=== PATIENT | male | born 1950 | race African-American/Black ===

== ENCOUNTER 2016-10-13 00:13 | Inpatient (IN) | payer MEDICARE, MEDICAID ==
[~2016-10-13] VITALS: Ht 172.7 cm; Wt 65.8 kg
[2016-10-13] VITALS (8 sets, daily range): BP systolic 90–138; BP diastolic 61–78
[~2016-10-13 00:13] MED LIST: LEVAQUIN750 MG ORAL
[2016-10-13] MEDS ORDERED: GLIPIZIDE5 MG ORAL (00:20)
[2016-10-13] MEDS ORDERED: ALLOPURINOL100 M1 ORAL (00:20)
[2016-10-13] MEDS ORDERED: CARVEDILOL12.5 MG ORAL (00:20)
[2016-10-13] MEDS ORDERED: NITROSTAT0.4 M2 SL (00:20)
[2016-10-13] MEDS ORDERED: HYDROCHLOROTHIA25 MG ORAL (00:20)
[2016-10-13] MEDS ORDERED: ATORVASTATIN CA40 MG ORAL (00:20)
[2016-10-13] MEDS ORDERED: ADVAIR 250-501 EACH INH ×2 (00:20→05:16)
[2016-10-13] MEDS ORDERED: HYDRALAZINE HC100 MG ORAL (00:20)
[2016-10-13] MEDS ORDERED: HYDROCODON-ACE1 EA13 ORAL ×2 (00:20→05:16)
[2016-10-13] MEDS ORDERED: DIPHENHYDRAMINE25 M1 ORAL (00:20)
[2016-10-13] MEDS ORDERED: BRILINTA90 MG PO (00:20)
[2016-10-13] MEDS ORDERED: ASPIR 8181 MG ORAL (00:20)
[2016-10-13] MEDS ORDERED: Ipratropium 0.02% Inh Soln 2.5ml UD HHN ONE (00:30)
[2016-10-13] MEDS ORDERED: Albuterol ud Inhalation HHN ONE (00:30)
[2016-10-13] MEDS ORDERED: Solu-MEDROL 125mg Inj IVP ONE (00:30)
[2016-10-13 00:48] LABS: MEAN CORPUSCULAR HEMOGLOBIN 30.6 PG (27.0-31.0); MEAN CORPUSCULAR HGB CONC 32.8 G/DL (32.0-36.0); MEAN CORPUSCULAR VOLUME 93 FL (80-99); MEAN PLATELET VOLUME 6.2 FL (6.5-10.1); PLATELET COUNT 79 K/UL (150-450); RED BLOOD COUNT 3.35 M/UL (4.70-6.10); RED CELL DISTRIBUTION WIDTH 21.6 % (11.6-14.8); WHITE BLOOD COUNT 6.5 K/UL (4.8-10.8)
[2016-10-13 00:58] LABS: INR 1.1 (0.9-1.1); PROTHROMBIN TIME 11.7 SEC (9.30-11.50)
[2016-10-13 01:02] LABS: TROPONIN I < 0.30 ng/mL (<=0.30)
[2016-10-13 01:03] LABS: ALANINE AMINOTRANSFERASE 77 U/L (3-41); ALBUMIN/GLOBULIN RATIO 1.5 (1.0-2.7); ANION GAP 15 (5-15); ASPARTATE AMINO TRANSFERASE 110 U/L (5-40); CALCIUM 8.6 mg/dL (8.6-10.2); CARBON DIOXIDE 25 mEQ/L (20-30); CHLORIDE 101 mEQ/L (98-107); CREATININE 1.4 mg/dL (0.7-1.2); GLOMERULAR FILTRATION RATE > 60 mL/min (>60); HEMOLYSIS 2; POTASSIUM 3.8 mEQ/L (3.4-4.9); SODIUM 141 mEQ/L (135-145); TOTAL PROTEIN 6.3 g/dL (6.6-8.7)
[2016-10-13 01:13] LABS: CKMB < 1.5 ng/mL (< 6.7)
--- NOTE | 2016-10-13 01:57 | Emergency Room Report ---
History of Present Illness General Chief Complaint: Dyspnea/Respdistress Source: Patient, EMS Present Illness HPI This is a 66-year-old male with multiple medical problems. He has previous MA in CAD with CHF. Also history hypertension and diabetes. 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 He presents with chief shortness of breath. This is chronic but worse the last couple days. No fever or chills. Worse with exertion. Worse with inspiration. Coughing. Productive in nature. No chest pain. Came in by EMS. Allergies: Coded Allergies: BRITTANI INHIBITORS (Unverified Allergy, Unknown, 03/19/15) Uncoded Allergies: BRITTANI (Allergy, Unknown, 03/18/15) Patient History Past Medical History: see triage record, old chart reviewed, DM, HTN, MA, CAD, CHF, COPD Past Surgical History: other Pertinent Family History: none Social History: Denies: smoking - History of Immunizations: other Reviewed Nursing Documentation: PMH: Agreed, PSxH: Agreed Nursing Documentation-PMH Past Medical History: No History, Except For Hx Cardiac Problems: Yes - 4-stents Hx Hypertension: Yes Hx Diabetes: Yes Review of Systems Eye: Denies: blurred vision, eye pain ENT: Denies: ear pain, nose congestion, throat swelling Respiratory: Reports: cough, shortness of breath Cardiovascular: Denies: chest pain, palpitations Gastrointestinal: Denies: abdominal pain, diarrhea, nausea, vomiting Musculoskeletal: Denies: back pain, joint pain Skin: Denies: rash Neurological: Denies: headache, numbness Endocrine: Denies: increased thirst, increased urine Hematologic/Lymphatic: Denies: easy bruising All Other Systems: negative except mentioned in HPI Physical Exam Vital Signs Date Time Temp Pulse Resp B/P Pulse Ox O2 Delivery O2 Flow Rate FiO2 10/13/16 00:07 91 16 115/59 100 Simple Mask 15.0 10/13/16 00:28 100 vitals with hypoxia Sp02 EP Interpretation: abnormal General Appearance: mild distress, moderate distress, Chronically Ill Head: normocephalic, atraumatic Eyes: bilateral eye EOMI, bilateral eye PERRL ENT: hearing grossly normal, normal pharynx Neck: full range of motion, supple, no meningismus Respiratory: chest non-tender, decreased breath sounds, accessory muscle use, rales Cardiovascular #1: regular rate, rhythm, no murmur Gastrointestinal: normal bowel sounds, non tender, no mass, no organomegaly, no bruit, non-distended Musculoskeletal: back normal, normal range of motion, swelling Neurologic: alert, oriented x3 Psychiatric: mood/affect normal Skin: warm/dry Medical Decision Making Diagnostic Impression: Primary Impression: CHF exacerbation Qualified Codes: I50.9 - Heart failure, unspecified Additional Impressions: Cocaine abuse Respiratory distress ER Course Patient presents with rest or distress secondary to CHF. Probably worsened by his cocaine abuse. No evidence of ACS, PE, dissection to name a few. Patient didn't diurese is. He felt better now. We'll admit. Lab Results Impression labs with elevated BNP EKG Diagnostic Results Rate: normal Rhythm: NSR ST Segments: no acute changes Rhythm Strip Diag. Results EP Interpretation: yes Rate: 85 Rhythm: NSR, no PVC's, no ectopy Chest X-Ray Diagnostic Results EP Interpretation: Yes Findings: no consolidation, no effusion, no pneumothorax, other - cm with vasc congestion Number of Views: 1 Last Vital Signs Date Time Temp Pulse Resp B/P Pulse Ox O2 Delivery O2 Flow Rate FiO2 10/13/16 01:45 88 20 90/63 12 Nasal Cannula 2.0 28 Status: improved Referrals: NON PHYSICIAN (PCP) MARYCARMEN THORPE M.D. October 13, 2016 01:57
[2016-10-13] MEDS: Aspirin EC 81mg tab ORAL SCH (09:38)
[2016-10-13] MEDS: Allopurinol 100mg Tab ORAL SCH ×2 (09:38→17:16)
[2016-10-13] MEDS: Norco 10mg/325mg tab ORAL PRN ×3 (09:43→21:28)
[2016-10-13] MEDS: Advair 250/50 Inhaler - 14 dose INH SCH ×2 (09:49→19:46)
[2016-10-13] MEDS ORDERED: Carvedilol 12.5mg tab ORAL SCH (10:00)
--- NOTE | 2016-10-13 10:18 | Diagnostic Imaging Report ---
Indication: Chest Pain Comparison: 03/18/15 A single view chest radiograph was obtained. Findings: Cardiomediastinal appearance is within normal limits for age. Pulmonary vascularity is appropriate. The diaphragmatic contour is smooth and costophrenic angles are sharp. No pleural effusions are identified. The bones are unremarkable. Impression: No acute findings
[2016-10-13 11:17] LABS: ABG ALLEN TEST POSITIVE; ABG PCO2 35.8 mmHg (35.0-45.0)
[2016-10-13] MEDS: NovoLOG Insulin Flexpen SUBQ SCH ×3 (11:49→20:52)
--- NOTE | 2016-10-13 12:30 | History and Physical Report ---
DATE OF ADMISSION: 10/13/2016 CHIEF COMPLAINT: Shortness of breath and chest pain. HISTORY OF PRESENT ILLNESS: This is a 66-year-old male with multiple medical problems. The patient presented to the emergency department with a shortness of breath lasting for several hours prior to admission. PAST MEDICAL HISTORY: 1. Paroxysmal atrial fibrillation. 2. Type 2 diabetes mellitus. 3. Hypertensive cardiovascular disease. 4. Ischemic heart disease. 5. Status post coronary artery stenting x4. 6. Hyperlipidemia. 7. Right arm deep vein thrombosis. 8. History of polysubstance abuse. 9. History of superior vena caval syndrome. 10. History of a non-small cell lung cancer. 11. Chronic obstructive pulmonary disease. 12. Polysubstance abuse. MEDICATIONS: Home medications includes the [place], allopurinol, baby aspirin, atorvastatin, Coreg, glipizide, hydralazine, hydrochlorothiazide, nitroglycerin, Advair Diskus, Brilinta, and Coumadin. ALLERGIES: BRITTANI inhibitor. SOCIAL HISTORY: The patient lives at home. FAMILY HISTORY: Unremarkable. REVIEW OF SYSTEMS: HEENT: Hearing normal. Endocrine: Significant for type 2 diabetes mellitus. Cardiovascular: Denies chest pain. No palpitations. Respiratory: He admits to orthopnea, paroxysmal nocturnal dyspnea and dyspnea on effort. Neurological: No stroke, syncope or Parkinson disease. Hematologic: Significant for history of a tqs-tigcd-ejak lung cancer. PHYSICAL EXAMINATION: GENERAL: This is an elderly male, who is in no acute distress. VITAL SIGNS: Blood pressure is 115/78, pulse rate 100, apical, respirations 18, temperature 97.6 degrees, oral and O2 saturation 97% on two liters per nasal cannula. HEENT: Head is normocephalic and atraumatic. Pupils are equal, round, and reactive to light and accommodation consensually. NECK: Supple. Trachea midline. There was no lymphadenopathy or thyromegaly. LUNGS: Few bilateral wheezes. HEART: Regular rate and rhythm without rubs, murmurs, or gallops. ABDOMEN: Soft. Bowel sounds are active. EXTREMITIES: No clubbing, cyanosis, or edema. NEUROLOGICAL: He is alert and oriented x4. Cranial nerves II through XII are intact. LABORATORY AND ANCILLARY DATA: EKG shows normal sinus rhythm, evidence of old anterior septal infarct. She has a CBC, hemoglobin 10.3, and platelet count is 79,000, otherwise within normal limits. Serum chemistry, creatinine 1.4. Electrolytes within normal limits. Glucose 121. AST 110, ALT 77, and alkaline phosphatase 143. ProBNP 1320. Urine toxicology screen is significant for cocaine. IMAGING STUDIES: Chest x-ray, no acute findings. ASSESSMENT: 1. Shortness of breath etiology unclear. Rule out pulmonary embolism, rule out other etiologies. PLAN: 1. Rule out any acute myocardial ischemia protocol. 2. Continue home medications. 3. Cardiology consultation to be done by . The patient knows from his last admission, although he has different pivotals in different hospitals. Harsh Maher M.D. DR: Henrik JOB#: [id number] CC:
[2016-10-13] MEDS ORDERED: Enoxaparin Sodium 300mg/3ml vial SUBQ SCH (13:00)
[2016-10-13] MEDS: HydrALAZINE 50mg tab ORAL SCH ×2 (13:20→21:35)
[2016-10-13] MEDS: Enoxaparin Sodium 300mg/3ml vial SUBQ SCH ×2 (13:23→21:27)
[2016-10-13 16:50] LABS: TROPONIN I < 0.30 ng/mL (<=0.30)
--- NOTE | 2016-10-13 16:59 | Cardiac Electrophysiology PN ---
Subjective Subjective [id number] Objective Last 24 Hour Vital Signs Date Time Temp Pulse Resp B/P Pulse Ox O2 Delivery O2 Flow Rate FiO2 10/13/16 15:54 96.8 77 20 116/67 98 Nasal Cannula 2.0 10/13/16 13:20 131/81 10/13/16 11:55 97.2 91 20 104/61 100 Nasal Cannula 2.0 10/13/16 10:06 97 Nasal Cannula 2.0 10/13/16 10:06 Nasal Cannula 2.0 10/13/16 09:55 100 18 97 Nasal Cannula 2.0 10/13/16 09:50 100 18 97 Nasal Cannula 2.0 10/13/16 09:48 100 18 Nasal Cannula 2.0 10/13/16 09:39 100 115/78 10/13/16 09:37 97.6 100 20 115/78 100 Nasal Cannula 2.0 10/13/16 08:00 93 10/13/16 07:55 97.5 100 20 96/69 100 Nasal Cannula 2.0 10/13/16 05:00 97.7 99 20 138/66 100 Room Air 10/13/16 04:55 106 10/13/16 04:43 99 28 106/74 100 Nasal Cannula 2.0 10/13/16 03:18 99 28 106/74 100 Nasal Cannula 2.0 10/13/16 01:45 88 20 90/63 12 Nasal Cannula 2.0 10/13/16 00:52 90 20 100 Nasal Cannula 2.0 10/13/16 00:46 116 25 96 Nasal Cannula 4.0 36 10/13/16 00:33 94 22 Non-Rebreather 15.0 100 10/13/16 00:30 100 10/13/16 00:29 94 22 Non-Rebreather 100 10/13/16 00:28 94 22 100 Non-Rebreather 100 10/13/16 00:07 91 16 115/59 100 Simple Mask 15.0 Intake and Output 10/12/16 10/13/16 19:00 07:00 Output Total 1300 ml Balance -1300 ml Output Urine Total 1300 ml # Voids 7 Laboratory Tests Test 10/13/16 00:31 10/13/16 02:00 10/13/16 11:10 10/13/16 16:00 White Blood Count 6.5 K/UL (4.8-10.8) Red Blood Count 3.35 M/UL (4.70-6.10) L Hemoglobin 10.3 G/DL (14.2-18.0) L Hematocrit 31.2 % (42.0-52.0) L Mean Corpuscular Volume 93 FL (80-99) Mean Corpuscular Hemoglobin 30.6 PG (27.0-31.0) Mean Corpuscular Hemoglobin Concent 32.8 G/DL (32.0-36.0) Red Cell Distribution Width 21.6 % (11.6-14.8) H Platelet Count 79 K/UL (150-450) L Mean Platelet Volume 6.2 FL (6.5-10.1) L Neutrophils (%) (Auto) % (45.0-75.0) Lymphocytes (%) (Auto) % (20.0-45.0) Monocytes (%) (Auto) % (1.0-10.0) Eosinophils (%) (Auto) % (0.0-3.0) Basophils (%) (Auto) % (0.0-2.0) Prothrombin Time 11.7 SEC (9.30-11.50) H Prothromb Time International Ratio 1.1 (0.9-1.1) Activated Partial Thromboplast Time 27 SEC (23-33) D-Dimer 63356 ng/mL (<500) H Sodium Level 141 mEQ/L (135-145) Potassium Level 3.8 mEQ/L (3.4-4.9) Chloride Level 101 mEQ/L (98-107) Carbon Dioxide Level 25 mEQ/L (20-30) Anion Gap 15 (5-15) Blood Urea Nitrogen 15 mg/dL (7-23) Creatinine 1.4 mg/dL (0.7-1.2) H Estimat Glomerular Filtration Rate > 60 mL/min (>60) Glucose Level 121 mg/dL (74-106) H Calcium Level 8.6 mg/dL (8.6-10.2) Total Bilirubin 0.3 mg/dL (0.0-1.2) Aspartate Amino Transf (AST/SGOT) 110 U/L (5-40) H Alanine Aminotransferase (ALT/SGPT) 77 U/L (3-41) H Alkaline Phosphatase 143 U/L (40-129) H Total Creatine Kinase 158 U/L (38-174) Creatine Kinase MB < 1.5 ng/mL (< 6.7) Creatine Kinase MB Relative Index 0.9 Troponin I < 0.30 ng/mL (<=0.30) < 0.30 ng/mL (<=0.30) Pro-B-Type Natriuretic Peptide 1320 pg/mL (0-125) H Total Protein 6.3 g/dL (6.6-8.7) L Albumin 3.8 g/dL (3.5-5.2) Globulin 2.5 g/dL Albumin/Globulin Ratio 1.5 (1.0-2.7) Urine Opiates Screen Negative (NEGATIVE) Urine Barbiturates Screen Negative (NEGATIVE) Phencyclidine (PCP) Screen Negative (NEGATIVE) Urine Amphetamines Screen Negative (NEGATIVE) Urine Benzodiazepines Screen Negative (NEGATIVE) Urine Cocaine Screen Positive (NEGATIVE) H Urine Marijuana (THC) Screen Negative (NEGATIVE) Arterial Blood pH 7.471 (7.350-7.450) Arterial Blood Partial Pressure CO2 35.8 mmHg (35.0-45.0) Arterial Blood Partial Pressure O2 81.9 mmHg (75.0-100.0) Arterial Blood HCO3 25.5 mmol/L (22.0-26.0) Arterial Blood Oxygen Saturation 95.9 % (92.0-98.0) Arterial Blood Base Excess 2.0 Bry Test Positive DARNELL RICK October 13, 2016 16:59
[2016-10-13] MEDS ORDERED: Warfarin Sodium 5mg ORAL ONE (17:00)
[2016-10-13] MEDS: GlipiZIDE 5mg tab ORAL SCH (17:16)
--- NOTE | 2016-10-13 17:17 | Consultation ---
Consult Note Consult Note Pt admitted with dyspnea, feels better now. Has a h/o extensive venous thrombosis and occlusions, including SVC syndrome. He is on coumadine but found to be subtherapeutic. Now on Lovenox as well. PMH/ROS/Hosp. course noted. Exam -- mild dyspnea, o/w NAD, AVSS; visible venous collaterals in shoulder and arms but mild edema; legs without C/C/E, right pedal pulse better than left but feet warm and without ulcer or gangrene; abd soft, NT, ND Labs/imaging reviewed. Assessment/Plan -- h/o SVC syndrome and UE DVT, on anticoagulation; no evidence of acute clinical venous complications -- cont. anticoagulation -- additional non-invasive studies ordered (carotid, LE) -- cardiology f/u -- will obtain additional records from other hospital admissions elsewhere for vascular procedures (e.g., LE intervention, per pt, etc.) ILIR DÍAZ October 13, 2016 17:17
--- NOTE | 2016-10-13 21:30 | Consultation ---
DATE OF CONSULTATION: 10/13/2016 CARDIOLOGY CONSULTATION: REFERRING PHYSICIAN: Harsh Maher M.D. REASON FOR CONSULTATION: Management of hypertension, shortness of breath, syncope, and chest pain. HISTORY OF PRESENT ILLNESS: The patient is a very pleasant 66-year-old gentleman under my Cardiology care with history of hypertension, diabetes, paroxysmal atrial fibrillation, and history of coronary artery disease with prior stent placement. The patient also has history of superior vena cava syndrome due to non-small cell lung cancer and right arm DVT. The patient's most recent echocardiogram showed ejection fraction 57% at [facility]. The patient was seen most recently by Dr. Narinder Rivera at [facility] on 10/03/2016 for radiation therapy. The patient was admitted for chest pain and shortness of breath. A Cardiology consultation was obtained for further evaluation and management. PAST MEDICAL HISTORY: 1. Hypertension. 2. Diabetes. 3. Paroxysmal atrial fibrillation. 4. History of coronary artery disease prior stent placement. 5. Small cell lung cancer. 6. Superior vena cava syndrome. 7. Status post drug-eluting stent 2015 . 8. Paroxysmal atrial fibrillation on Coumadin. SOCIAL HISTORY: He lives at home. Does not smoke or drink alcohol. FAMILY HISTORY: Noncontributory. REVIEW OF SYSTEM: Thoroughly performed and was negative other what was mentioned in history of present illness. PHYSICAL EXAMINATION: VITAL SIGNS: Blood pressure is 130/70, pulse 80, respirations 18, and he is afebrile. HEAD AND NECK: Shows mild JVD. LUNGS: Decreased breath sounds. CARDIOVASCULAR: Shows regular S1 and S2 with no gallop or murmur. ABDOMEN: Soft. EXTREMITIES: No pitting edema. SKIN: His anterior chest and skin color is change due to radiation therapy. LABORATORY DATA: White count 6.5, hematocrit 10.4, hematocrit 31.2, and platelet count of 79,000. Sodium 141, potassium 3.8, BUN 15, creatinine 1.4, and glucose 121. Troponin negative x2. ASSESSMENT AND PLAN: 1. Chest pain. This could be secondary to the patient's underlying small-cell cancer. He was already ruled out for myocardial infarction with serial cardiac enzymes. His EKG showed no acute ischemic changes. Urine toxicology however is positive for cocaine could be causing the patient's chest pain as well. 2. Coronary artery disease with prior stent placement. Drug-eluting stent as mentioned above. Continue with Lipitor, Plavix, and aspirin. I would discontinue Coreg in view of the patient's active cocaine use. We will proceed with diltiazem. 3. Paroxysmal atrial fibrillation sinus rhythm already on Coumadin and Lovenox until INR is therapeutic. 4. Hypertension on hydralazine 100 mg three times daily and switch Coreg to diltiazem in view of active cocaine use. 5. Hyperlipidemia on Lipitor. 6. Small cell lung cancer, status post radiation therapy and chemotherapy. 7. History of deep venous thrombosis. Continues on Coumadin. Thank you very much, Dr. Maher , for allowing me to participate in the care of this patient. Please do not hesitate to contact for any questions regarding my evaluation. Quinton Bradley M.D. DR: Katlyn JOB#: [id number] CC:
[2016-10-14] VITALS: BP 106/81
[2016-10-14 01:09] LABS: TROPONIN I < 0.30 ng/mL (<=0.30)
[2016-10-14 04:00] VITALS: BP 129/78
[2016-10-14] MEDS: NovoLOG Insulin Flexpen SUBQ SCH ×4 (06:16→21:00)
[2016-10-14] MEDS: GlipiZIDE 5mg tab ORAL SCH ×2 (06:17→16:30)
[2016-10-14] MEDS: HydrALAZINE 50mg tab ORAL SCH ×3 (06:17→21:14)
[2016-10-14] MEDS: Advair 250/50 Inhaler - 14 dose INH SCH ×2 (07:29→22:00)
[2016-10-14 08:00] VITALS: BP 154/96
[2016-10-14 09:06] LABS: INR 1.1 (0.9-1.1); PROTHROMBIN TIME 10.9 SEC (9.30-11.50)
[2016-10-14 09:22] LABS: TROPONIN I < 0.30 ng/mL (<=0.30)
--- NOTE | 2016-10-14 10:27 | General Progress Note ---
Assessment/Plan Assessment/Plan 1. Paroxysmal atrial fibrillation. 2. Type 2 diabetes mellitus. 3. Hypertensive cardiovascular disease. 4. Ischemic heart disease. 5. Status post coronary artery stenting x4. 6. Hyperlipidemia. 7. Right arm deep vein thrombosis. 8. History of polysubstance abuse. 9. History of superior vena caval syndrome. 10. History of a non-small cell lung cancer. 11. Chronic obstructive pulmonary disease. 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 Coumadinizing. Vasular w/u in progress. Patient is at extremely high CV risk and continues to consume street drugs. Subjective Allergies: Coded Allergies: BRITTANI INHIBITORS (Unverified Allergy, Unknown, 03/19/15) Uncoded Allergies: BRITTANI (Allergy, Unknown, 03/18/15) Subjective Less SOB but still not normal. No chest pain. Objective Last 24 Hour Vital Signs Date Time Temp Pulse Resp B/P Pulse Ox O2 Delivery O2 Flow Rate FiO2 10/14/16 08:00 97.7 108 18 154/96 Nasal Cannula 2.0 98 10/14/16 07:54 98 Nasal Cannula 2.0 10/14/16 07:54 Nasal Cannula 2.0 10/14/16 07:53 108 20 98 Nasal Cannula 2.0 10/14/16 07:52 108 18 98 Nasal Cannula 2.0 10/14/16 06:17 106/81 10/14/16 04:00 98.5 106 20 129/78 99 Room Air 10/14/16 04:00 97 10/14/16 00:00 92 10/14/16 00:00 97.2 101 20 106/81 98 Room Air 10/13/16 22:27 96.8 10/13/16 21:35 109/76 10/13/16 20:00 96 10/13/16 20:00 96.8 94 22 109/76 97 Room Air 10/13/16 19:47 115 20 98 Nasal Cannula 2.0 10/13/16 19:30 114 20 97 Nasal Cannula 2.0 10/13/16 19:30 97 Nasal Cannula 2.0 10/13/16 19:30 Nasal Cannula 2.0 10/13/16 16:00 89 10/13/16 15:54 96.8 77 20 116/67 98 Nasal Cannula 2.0 10/13/16 13:20 131/81 10/13/16 12:00 94 10/13/16 11:55 97.2 91 20 104/61 100 Nasal Cannula 2.0 Intake and Output 10/13/16 10/14/16 19:00 07:00 Intake Total 730 ml Output Total 650 ml 100 ml Balance 80 ml -100 ml Intake Oral 730 ml Output Urine Total 650 ml 100 ml # Voids 1 Laboratory Tests 10/13/16 11:10: Arterial Blood pH 7.471H, Arterial Blood Partial Pressure CO2 35.8, Arterial Blood Partial Pressure O2 81.9, Arterial Blood HCO3 25.5, Arterial Blood Oxygen Saturation 95.9, Arterial Blood Base Excess 2.0, Bry Test Positive 10/13/16 16:00: Troponin I < 0.30 10/14/16 00:10: Troponin I < 0.30 10/14/16 08:00: Troponin I < 0.30, Prothrombin Time 10.9, Prothromb Time International Ratio 1.1 , Pro-B-Type Natriuretic Peptide 832H Height (Feet): 5 Height (Inches): 8.00 Weight (Pounds): 145 Objective Cachechtic. CV RR Multiple collateral venous veins. Lungs B increased exp. Abd SNT. BS + E Rt. arm edema. CHERYL RABAGO October 14, 2016 10:27
[2016-10-14] MEDS: Aspirin EC 81mg tab ORAL SCH (11:09)
[2016-10-14] MEDS: Norco 10mg/325mg tab ORAL PRN ×2 (11:09→19:59)
[2016-10-14] MEDS: Allopurinol 100mg Tab ORAL SCH ×2 (11:10→17:55)
[2016-10-14] MEDS: Enoxaparin Sodium 300mg/3ml vial SUBQ SCH ×2 (11:11→21:08)
[2016-10-14] MEDS: Diltiazem CD 180mg cap ORAL SCH (11:12)
[2016-10-14 12:00] VITALS: BP 131/85
--- NOTE | 2016-10-14 12:33 | Diagnostic Imaging Report ---
APPROVED REPORT CPT Code: 98322 Vascular Symptoms Dizziness and Vertigo Doppler Spectral Velocity Analysis RightLeft BILATERAL: CCA/BULB - Imaging reveals irregular, minimal plaque in both the carotid carotid arteries. The Doppler spectral flow analysis is within normal limits throughout the internal and external carotid arteries. VERTEBRALS - Imaging reveals both vertebral arteries to be patent, without evidence of stenosis or steal.
--- NOTE | 2016-10-14 12:33 | Diagnostic Imaging Report ---
APPROVED REPORT CPT Code: 62109 Present Symptoms Lower Extremity Pain: Bilateral BILATERAL: Imaging reveals a patent deep venous system bilaterally. There is no evidence of thrombus within the femoral, popliteal or tibial segments. The greater saphenous veins are also within normal limits. Doppler indicates normal spontaneous flow within these segments.
--- NOTE | 2016-10-14 12:34 | Diagnostic Imaging Report ---
APPROVED REPORT CPT Code: 08549 Present Symptoms Upper Extremity Pain: Right DVT of Upper Extremity: Right 2D Evaluation RIGHT UPPER EXTREMITY: Venous imaging reveals acute thrombus in the jugular vein. The remaining segments are within normal limits. There is no evidence of thrombus within the subclavian, axillary and the brachial veins. The cephalic vein is also thrombosed at the upper arm level. Imaging also reveals patency of the basilic vein.
--- NOTE | 2016-10-14 13:30 | Diagnostic Imaging Report ---
APPROVED REPORT CPT Code: 91362 Symptoms Claudication : Right RIGHT LEG: Common femoral artery waveform analysis is abnormal at rest. Color flow duplex sonography reveals diffuse calcification throughout the superficial femoral and popliteal arteries. There is no evidence of stenosis or occlusion within these segments. The tibioperoneal trunk is patent. Doppler tibial artery waveform analysis is compartible with minimal ischemia at rest. LEFT LEG: Common femoral artery waveform analysis is compartible with mild ischemia at rest. Color flow duplex sonography reveals calcification throughout the superficial femoral and popliteal arteries. There is no evidence of stenosis or occlusion within these segments. The tibioperoneal trunk is patent. Doppler tibial artery waveform analysis is compartible with mild ischemia at rest.
--- NOTE | 2016-10-14 13:33 | General Progress Note ---
Progress Note Progress Note Feeling significantly better today. NAD; AVSS; vascular exam stable. Non-invasive vascular studies completed -- only significant finding is limited acute thrombus in RUE. -- cont. anticoagulation -- repeat venous duplex of RUE in 1-2 weeks or sooner if clinically indicated -- f/u as outpt ILIR DÍAZ October 14, 2016 13:33
--- NOTE | 2016-10-14 15:55 | Cardiac Electrophysiology PN ---
Assessment/Plan Assessment/Plan 1. Chest pain. This could be secondary to the patient's underlying small-cell cancer. Ruled out for myocardial infarction. EKG showed no acute ischemic changes. Urine toxicology however is positive for cocaine could be causing the patient's chest pain as well. 2. Coronary artery disease with prior stent placement and S/P Drug-eluting stent. Continue with Lipitor, Plavix, and aspirin. Off betablocker in view of the patient's active cocaine use. Continue diltiazem. 3. Paroxysmal atrial fibrillation sinus rhythm already on Coumadin and Lovenox until INR is therapeutic. 4. Hypertension on hydralazine 100 mg three times daily, diltiazem and HCTZ 5. Hyperlipidemia on Lipitor. 6. Small cell lung cancer, status post radiation therapy and chemotherapy. 7. History of deep venous thrombosis. Continues on Coumadin. RICK RN Subjective Subjective Remained in SR. No chest pain or SOB. Had ECG and echo today. Objective Last 24 Hour Vital Signs Date Time Temp Pulse Resp B/P Pulse Ox O2 Delivery O2 Flow Rate FiO2 10/14/16 14:07 131/85 10/14/16 12:00 88 19 131/85 Nasal Cannula 2.0 97 10/14/16 11:12 108 154/96 10/14/16 08:00 97.7 108 18 154/96 Nasal Cannula 2.0 98 10/14/16 08:00 99 10/14/16 07:54 98 Nasal Cannula 2.0 10/14/16 07:54 Nasal Cannula 2.0 10/14/16 07:53 108 20 98 Nasal Cannula 2.0 10/14/16 07:52 108 18 98 Nasal Cannula 2.0 10/14/16 06:17 106/81 10/14/16 04:00 98.5 106 20 129/78 99 Room Air 10/14/16 04:00 97 10/14/16 00:00 92 10/14/16 00:00 97.2 101 20 106/81 98 Room Air 10/13/16 22:27 96.8 10/13/16 21:35 109/76 10/13/16 20:00 96 10/13/16 20:00 96.8 94 22 109/76 97 Room Air 10/13/16 19:47 115 20 98 Nasal Cannula 2.0 10/13/16 19:30 114 20 97 Nasal Cannula 2.0 28 10/13/16 19:30 97 Nasal Cannula 2.0 28 10/13/16 19:30 Nasal Cannula 2.0 28 10/13/16 16:00 89 10/13/16 15:54 96.8 77 20 116/67 98 Nasal Cannula 2.0 Intake and Output 10/13/16 10/14/16 19:00 07:00 Intake Total 730 ml Output Total 650 ml 100 ml Balance 80 ml -100 ml Intake Oral 730 ml Output Urine Total 650 ml 100 ml # Voids 1 Laboratory Tests Test 10/13/16 16:00 10/14/16 00:10 10/14/16 08:00 Troponin I < 0.30 ng/mL (<=0.30) < 0.30 ng/mL (<=0.30) < 0.30 ng/mL (<=0.30) Prothrombin Time 10.9 SEC (9.30-11.50) Prothromb Time International Ratio 1.1 (0.9-1.1) Pro-B-Type Natriuretic Peptide 832 pg/mL (0-125) H Objective HEAD AND NECK: mild JVD. LUNGS: Decreased breath sounds. CARDIOVASCULAR: Shows regular S1 and S2 with no gallop or murmur. ABDOMEN: Soft. EXTREMITIES: No pitting edema. SKIN: His anterior chest and skin color is changed due to radiation therapy. DARNELL RICK October 14, 2016 15:54
[2016-10-14] MEDS ORDERED: Warfarin Sodium 5mg ORAL ONE (17:00)
[2016-10-14 17:07] LABS: TROPONIN I < 0.30 ng/mL (<=0.30)
[2016-10-14 20:00] VITALS: BP 114/71
[2016-10-15] VITALS (7 sets, daily range): BP systolic 97–130; BP diastolic 55–81
[2016-10-15] MEDS: Norco 10mg/325mg tab ORAL PRN ×3 (04:40→17:17)
[2016-10-15 05:21] LABS: APPEARANCE,URINE CLEAR; KETONES,URINE NEGATIVE (NEGATIVE); LEUKOCYTE ESTERASE ,URINE NEGATIVE (NEGATIVE); NITRITE,URINE NEGATIVE (NEGATIVE); PH,URINE 5 (4.5-8.0); PROTEIN,URINE NEGATIVE (NEGATIVE); UROBILINOGEN,URINE NORMAL MG/DL (0.0-1.0)
[2016-10-15 05:36] LABS: BACTERIA,URINE OCCASIONAL /HPF; RBC,URINE 0-2 /HPF (0 - 0); SQUAMOUS EPITHELIAL CELL,UR OCCASIONAL /LPF (NONE/OCC); WBC,URINE 0-2 /HPF (0 - 0)
[2016-10-15] MEDS: HydrALAZINE 50mg tab ORAL SCH ×3 (05:57→21:50)
[2016-10-15] MEDS: GlipiZIDE 5mg tab ORAL SCH ×2 (05:57→16:18)
[2016-10-15] MEDS: NovoLOG Insulin Flexpen SUBQ SCH ×4 (05:59→21:00)
[2016-10-15 06:29] LABS: INR 1.1 (0.9-1.1); PROTHROMBIN TIME 10.7 SEC (9.30-11.50)
[2016-10-15] MEDS: Advair 250/50 Inhaler - 14 dose INH SCH ×2 (08:00→19:36)
[2016-10-15] MEDS: Aspirin EC 81mg tab ORAL SCH (08:27)
[2016-10-15] MEDS: Diltiazem CD 180mg cap ORAL SCH (08:27)
[2016-10-15] MEDS: Allopurinol 100mg Tab ORAL SCH ×2 (08:27→17:16)
[2016-10-15] MEDS: Enoxaparin Sodium 300mg/3ml vial SUBQ SCH ×2 (08:29→21:49)
--- NOTE | 2016-10-15 11:01 | General Progress Note ---
Assessment/Plan Assessment/Plan 1. Paroxysmal atrial fibrillation. 2. Type 2 diabetes mellitus. 3. Hypertensive cardiovascular disease. 4. Ischemic heart disease. 5. Status post coronary artery stenting x4. 6. Hyperlipidemia. 7. Right arm deep vein thrombosis. 8. History of polysubstance abuse. 9. History of superior vena caval syndrome. 10. History of a non-small cell lung cancer. 11. Chronic obstructive pulmonary disease. 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 Coumadinizing. Very slow to respond. To increase dose. Vasular w/u in progress. Patient is at extremely high CV risk and continues to consume street drugs. Subjective Allergies: Coded Allergies: BRITTANI INHIBITORS (Unverified Allergy, Unknown, 03/19/15) Uncoded Allergies: BRITTANI (Allergy, Unknown, 03/18/15) Subjective Less SOB but still not normal. No chest pain. Objective Last 24 Hour Vital Signs Date Time Temp Pulse Resp B/P Pulse Ox O2 Delivery O2 Flow Rate FiO2 10/15/16 08:27 97 130/81 10/15/16 08:02 98.1 97 20 130/81 98 Nasal Cannula 2.0 10/15/16 08:00 85 16 98 Nasal Cannula 2.0 10/15/16 08:00 91 18 98 Nasal Cannula 2.0 10/15/16 07:52 89 10/15/16 07:42 Nasal Cannula 2.0 10/15/16 07:41 98 Nasal Cannula 2.0 10/15/16 05:57 119/64 10/15/16 05:55 85 119/64 10/15/16 04:16 97.5 78 18 110/55 96 Nasal Cannula 2.0 10/15/16 03:49 99 10/15/16 00:00 97.2 89 20 128/74 100 Nasal Cannula 2.0 10/14/16 23:59 95 10/14/16 21:14 123/83 10/14/16 21:00 110 20 99 Nasal Cannula 2.0 10/14/16 21:00 105 20 97 Nasal Cannula 2.0 10/14/16 20:00 97.7 87 19 114/71 98 Nasal Cannula 2.0 97 10/14/16 19:54 102 10/14/16 19:30 98 Nasal Cannula 2.0 10/14/16 19:30 Nasal Cannula 2.0 28 10/14/16 16:00 90 10/14/16 14:07 131/85 10/14/16 12:00 95 10/14/16 12:00 88 19 131/85 Nasal Cannula 2.0 97 10/14/16 11:12 108 154/96 Intake and Output 10/14/16 10/15/16 19:00 07:00 Intake Total 240 ml Output Total 300 ml Balance -60 ml Intake Oral 240 ml Output Urine Total 300 ml Laboratory Tests 10/14/16 16:10: Troponin I < 0.30 10/15/16 04:43: Urine Color Pale yellow, Urine Appearance Clear, Urine pH 5, Urine Specific [place] 1.010, Urine Protein Negative, Urine Glucose (UA) Negative, Urine Ketones Negative, Urine Occult Blood Negative, Urine Nitrite Negative, Urine Bilirubin Negative, Urine Urobilinogen Normal, Urine Leukocyte Esterase Negative , Urine RBC 0-2H, Urine WBC 0-2, Urine Squamous Epithelial Cells Occasional, Urine Bacteria Occasional 10/15/16 05:40: Prothrombin Time 10.7, Prothromb Time International Ratio 1.1 Height (Feet): 5 Height (Inches): 8.00 Weight (Pounds): 145 Objective Cachechtic. CV RR Multiple collateral venous veins. Lungs B increased exp. Abd SNT. BS + E Rt. arm edema. CHERYL RABAGO October 15, 2016 11:01
--- NOTE | 2016-10-15 11:02 | Cardiology Report ---
APPROVED REPORT EKG Measurement Heart [id number] Normal sinus rhythm Anteroseptal infarct, age undetermined Abnormal ECG
--- NOTE | 2016-10-15 15:03 | Cardiology Report ---
APPROVED REPORT EXAM: Two-dimensional and M-mode echocardiogram with Doppler and color Doppler. INDICATION Congestive Heart Failure M-Mode DIMENSIONS IVSd0.8 (0.7-1.1cm)Left Atrium (MM)4.9 (1.6-4.0cm) LVDd5.5 (3.5-5.6cm)Aortic Root3.3 (2.0-3.7cm) PWd1.0 (0.7-1.1cm)Aortic Cusp Exc.2.0 (1.5-2.0cm) LVDs4.1 (2.5-4.0cm) PWs1.6 cm Normal left ventricular chamber size. Mild global LV hypokinesis. Left ventricular ejection fraction estimated to be 45%. No evidence of left ventricular hypertrophy. No evidence of pericardial fat or effusion. Right cardiac chamber sizes are within normal limits. Mild left atrial enlargement by 2D. Focal aortic valve sclerosis with adequate cusp excursion Mildly thickened mitral valve leaflets with normal excursion. Mild mitral annulus and aortic root calcification. Pulmonic valve not well visualized. Normal tricuspid valve structure. IVC is normal in size with physiologic collapse. A color flow and spectral Doppler study was performed and revealed: Trace aortic regurgitation. Moderate mitral regurgitation. Left ventricular diastolic dysfunction grade 1. No tricuspid regurgitation.
[2016-10-15] MEDS ORDERED: Warfarin Sodium 10mg ORAL ONE (17:00)
[2016-10-15] MEDS ORDERED: Warfarin Sodium 5mg ORAL ONE (17:00)
--- NOTE | 2016-10-15 17:12 | Cardiac Electrophysiology PN ---
Assessment/Plan Status Narrative Normal left ventricular chamber size. Mild global LV hypokinesis. Left ventricular ejection fraction estimated to be 45%. No evidence of left ventricular hypertrophy. No evidence of pericardial fat or effusion. Right cardiac chamber sizes are within normal limits. Mild left atrial enlargement by 2D. Focal aortic valve sclerosis with adequate cusp excursion Mildly thickened mitral valve leaflets with normal excursion. Mild mitral annulus and aortic root calcification. Pulmonic valve not well visualized. Normal tricuspid valve structure. IVC is normal in size with physiologic collapse. A color flow and spectral Doppler study was performed and revealed: Trace aortic regurgitation. Moderate mitral regurgitation. Left ventricular diastolic dysfunction grade 1. No tricuspid regurgitation. Assessment/Plan 1. Chest pain. This could be secondary to underlying small-cell cancer and post radiation. Ruled out for myocardial infarction. EKG showed no acute ischemic changes.Echo EF 45% but no pericardial effusion. Urine toxicology however is positive for cocaine that could be causing the [place] [id number]! Order Chest CT angio to rule out PE. 2. Coronary artery disease with prior stent placement and S/P Drug-eluting stent. Continue with Lipitor, Plavix, and aspirin. Off betablocker in view of the patient's active cocaine use. Continue diltiazem. 3. Paroxysmal atrial fibrillation sinus rhythm already on Coumadin and Lovenox until INR is therapeutic. 4. Hypertension on hydralazine 100 mg three times daily, diltiazem and HCTZ 5. Hyperlipidemia on Lipitor. 6. Cardiomyopathy with EF 45%. 7. Small cell lung cancer, status post radiation therapy and chemotherapy. 8. History of deep venous thrombosis. Continues on Coumadin. RICK RN Subjective Subjective Remained in SR. No chest pain or SOB. No arrhythmias on tele. Objective Last 24 Hour Vital Signs Date Time Temp Pulse Resp B/P Pulse Ox O2 Delivery O2 Flow Rate FiO2 10/15/16 16:00 89 10/15/16 15:18 97.5 83 20 97/58 98 Nasal Cannula 2.0 10/15/16 13:16 125/65 10/15/16 12:54 97.9 10/15/16 11:51 86 10/15/16 11:20 97.9 90 20 125/65 99 Nasal Cannula 2.0 10/15/16 08:27 97 130/81 10/15/16 08:02 98.1 97 20 130/81 98 Nasal Cannula 2.0 10/15/16 08:00 85 16 98 Nasal Cannula 2.0 28 10/15/16 08:00 91 18 98 Nasal Cannula 2.0 28 10/15/16 07:52 89 10/15/16 07:42 Nasal Cannula 2.0 28 10/15/16 07:41 98 Nasal Cannula 2.0 28 10/15/16 05:57 119/64 10/15/16 05:55 85 119/64 10/15/16 04:16 97.5 78 18 110/55 96 Nasal Cannula 2.0 10/15/16 03:49 99 10/15/16 00:00 97.2 89 20 128/74 100 Nasal Cannula 2.0 28 10/14/16 23:59 95 10/14/16 21:14 123/83 10/14/16 21:00 110 20 99 Nasal Cannula 2.0 28 10/14/16 21:00 105 20 97 Nasal Cannula 2.0 28 10/14/16 20:00 97.7 87 19 114/71 98 Nasal Cannula 2.0 97 10/14/16 19:54 102 10/14/16 19:30 98 Nasal Cannula 2.0 28 10/14/16 19:30 Nasal Cannula 2.0 28 Intake and Output 10/14/16 10/15/16 19:00 07:00 Intake Total 240 ml Output Total 300 ml Balance -60 ml Intake Oral 240 ml Output Urine Total 300 ml Laboratory Tests Test 10/15/16 04:43 10/15/16 05:40 Urine Color Pale yellow Urine Appearance Clear Urine pH 5 (4.5-8.0) Urine Specific [place] 1.010 (1.005-1.035) Urine Protein Negative (NEGATIVE) Urine Glucose (UA) Negative (NEGATIVE) Urine Ketones Negative (NEGATIVE) Urine Occult Blood Negative (NEGATIVE) Urine Nitrite Negative (NEGATIVE) Urine Bilirubin Negative (NEGATIVE) Urine Urobilinogen Normal MG/DL (0.0-1.0) Urine Leukocyte Esterase Negative (NEGATIVE) Urine RBC 0-2 /HPF (0 - 0) H Urine WBC 0-2 /HPF (0 - 0) Urine Squamous Epithelial Cells Occasional /LPF Urine Bacteria Occasional /HPF (NONE) Prothrombin Time 10.7 SEC (9.30-11.50) Prothromb Time International Ratio 1.1 (0.9-1.1) Objective HEAD AND NECK: mild JVD. LUNGS: Clear. CARDIOVASCULAR: Shows regular S1 and S2 with no gallop or murmur. ABDOMEN: Soft. EXTREMITIES: No pitting edema. SKIN: His anterior chest skin color is changed due to radiation therapy. DARNELL RICK October 15, 2016 17:12
[2016-10-16] VITALS: BP 142/75
[2016-10-16 04:00] VITALS: BP 118/70
[2016-10-16] MEDS: HydrALAZINE 50mg tab ORAL SCH ×3 (05:51→22:00)
[2016-10-16] MEDS: GlipiZIDE 5mg tab ORAL SCH ×2 (05:51→17:12)
[2016-10-16] MEDS: NovoLOG Insulin Flexpen SUBQ SCH ×4 (05:58→20:52)
[2016-10-16 08:00] VITALS: BP 132/79
[2016-10-16 08:03] LABS: MEAN CORPUSCULAR HEMOGLOBIN 30.9 PG (27.0-31.0); MEAN CORPUSCULAR HGB CONC 32.8 G/DL (32.0-36.0); MEAN CORPUSCULAR VOLUME 94 FL (80-99); MEAN PLATELET VOLUME 9.5 FL (6.5-10.1); PLATELET COUNT 81 K/UL (150-450); RED BLOOD COUNT 3.19 M/UL (4.70-6.10); RED CELL DISTRIBUTION WIDTH 22.1 % (11.6-14.8); WHITE BLOOD COUNT 5.4 K/UL (4.8-10.8)
[2016-10-16 08:33] LABS: INR 1.1 (0.9-1.1)
[2016-10-16 09:13] LABS: LYMPHOCYTES % (MANUAL) 16 % (20-45); NEUTROPHILS % (MANUAL) 80 % (45-75); TOTAL CELLS COUNTED 100
[2016-10-16] MEDS: Allopurinol 100mg Tab ORAL SCH ×2 (09:14→17:12)
[2016-10-16 09:15] LABS: ANISOCYTOSIS 2+; BAND NEUTROPHILS % (MANUAL) 0 % (0-8); BASOPHILS % (MANUAL) 0 % (0-2); EOSINOPHILS % (MANUAL) 0 % (0-3); HYPOCHROMASIA 1+; PLATELET ESTIMATE DECREASED; PLATELET MORPHOLOGY NORMAL
[2016-10-16] MEDS: Aspirin EC 81mg tab ORAL SCH (09:18)
[2016-10-16] MEDS: Diltiazem CD 180mg cap ORAL SCH (09:19)
[2016-10-16] MEDS: Norco 10mg/325mg tab ORAL PRN ×2 (09:21→20:51)
[2016-10-16] MEDS: Enoxaparin Sodium 300mg/3ml vial SUBQ SCH ×2 (09:22→22:06)
[2016-10-16] MEDS: Advair 250/50 Inhaler - 14 dose INH SCH ×2 (09:36→21:14)
--- NOTE | 2016-10-16 10:42 | General Progress Note ---
Assessment/Plan Assessment/Plan 1. Paroxysmal atrial fibrillation. 2. Type 2 diabetes mellitus. 3. Hypertensive cardiovascular disease. 4. Ischemic heart disease. 5. Status post coronary artery stenting x4. 6. Hyperlipidemia. 7. Right arm deep vein thrombosis. 8. History of polysubstance abuse. 9. History of superior vena caval syndrome. 10. History of a non-small cell lung cancer. 11. Chronic obstructive pulmonary disease. 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 Coumadinizing. Very slow to respond. To increase dose. Vasular w/u in progress. Patient is at extremely high CV risk and continues to consume street drugs. Subjective Allergies: Coded Allergies: BRITTANI INHIBITORS (Unverified Allergy, Unknown, 03/19/15) Uncoded Allergies: BRITTANI (Allergy, Unknown, 03/18/15) Subjective Less SOB but still not normal. No chest pain. Objective Last 24 Hour Vital Signs Date Time Temp Pulse Resp B/P Pulse Ox O2 Delivery O2 Flow Rate FiO2 10/16/16 09:39 102 18 96 Nasal Cannula 2.0 10/16/16 09:37 102 18 96 Nasal Cannula 2.0 10/16/16 09:19 105 132/79 10/16/16 08:00 97.0 91 18 132/79 97 Room Air 10/16/16 06:50 Nasal Cannula 2.0 10/16/16 06:49 98 Nasal Cannula 2.0 10/16/16 05:51 118/70 10/16/16 04:00 100 10/16/16 04:00 97.7 97 21 118/70 98 Nasal Cannula 2.0 10/16/16 00:00 97.4 94 22 142/75 96 Room Air 10/16/16 00:00 91 10/15/16 21:50 100/63 10/15/16 20:00 97.7 84 21 120/75 100 Room Air 10/15/16 20:00 92 10/15/16 19:43 Room Air 10/15/16 19:43 98 Room Air 10/15/16 19:42 76 18 98 Room Air 10/15/16 19:41 77 18 98 Room Air 10/15/16 18:20 97.5 10/15/16 16:00 89 10/15/16 15:18 97.5 83 20 97/58 98 Nasal Cannula 2.0 10/15/16 13:16 125/65 10/15/16 11:51 86 10/15/16 11:20 97.9 90 20 125/65 99 Nasal Cannula 2.0 Intake and Output 10/15/16 10/16/16 19:00 07:00 Intake Total 1010 ml Output Total 600 ml Balance 1010 ml -600 ml Intake Oral 1010 ml Output Urine Total 600 ml # Voids 4 # Bowel Movements 1 1 Laboratory Tests 10/16/16 07:30: White Blood Count 5.4, Red Blood Count 3.19L, Hemoglobin 9.8L, Hematocrit 30.0L , Mean Corpuscular Volume 94, Mean Corpuscular Hemoglobin 30.9, Mean Corpuscular Hemoglobin Concent 32.8, Red Cell Distribution Width 22.1H, Platelet Count 81L, Mean Platelet Volume 9.5, Neutrophils (%) (Auto) , Lymphocytes (%) (Auto) , Monocytes (%) (Auto) , Eosinophils (%) (Auto) , Basophils (%) (Auto) , Differential Total Cells Counted 100, Neutrophils % ( Manual) 80H, Lymphocytes % (Manual) 16L, Monocytes % (Manual) 4, Eosinophils % ( Manual) 0, Basophils % (Manual) 0, Band Neutrophils 0, Platelet Estimate DecreasedL, Platelet Morphology Normal, Hypochromasia 1+, Anisocytosis 2+, Prothrombin Time 11.0, Prothromb Time International Ratio 1.1 Height (Feet): 5 Height (Inches): 8.00 Weight (Pounds): 145 Objective Cachechtic. CV RR Multiple collateral venous veins. Lungs B increased exp. Abd SNT. BS + E Rt. arm edema. CHERYL RABAGO Oct 16, 2016 10:42
[2016-10-16 12:00] VITALS: BP 103/66
--- NOTE | 2016-10-16 15:29 | Cardiac Electrophysiology PN ---
Assessment/Plan Status Narrative Normal left ventricular chamber size. Mild global LV hypokinesis. Left ventricular ejection fraction estimated to be 45%. No evidence of left ventricular hypertrophy. No evidence of pericardial fat or effusion. Right cardiac chamber sizes are within normal limits. Mild left atrial enlargement by 2D. Focal aortic valve sclerosis with adequate cusp excursion Mildly thickened mitral valve leaflets with normal excursion. Mild mitral annulus and aortic root calcification. Pulmonic valve not well visualized. Normal tricuspid valve structure. IVC is normal in size with physiologic collapse. A color flow and spectral Doppler study was performed and revealed: Trace aortic regurgitation. Moderate mitral regurgitation. Left ventricular diastolic dysfunction grade 1. No tricuspid regurgitation. Assessment/Plan 1. Chest pain. Likely due to underlying small-cell cancer and post radiation. Ruled out for myocardial infarction. EKG showed no acute ischemic changes.Echo EF 45% but no pericardial effusion. Urine toxicology is positive for cocaine that could be causing the patient's chest [place] [address]! Chest CT angio to rule out PE done today, results preliminary negative. 2. Coronary artery disease with prior stent placement and S/P Drug-eluting stent. Continue with Lipitor, Plavix, and aspirin. Off beta tameka in view of the patient's active cocaine use. Continue diltiazem. 3. Paroxysmal atrial fibrillation in sinus rhythm. On Coumadin and Lovenox until INR is therapeutic. 4. Hypertension on hydralazine 100 mg three times daily, diltiazem and HCTZ 5. Hyperlipidemia on Lipitor. 6. Cardiomyopathy with EF 45%. 7. Small cell lung cancer, status post radiation therapy and chemotherapy. 8. History of deep venous thrombosis. Continue Coumadin. RICK RN Subjective Subjective Remained in SR. No arrhythmias on tele.No chest pain or SOB.Getting anticoagulation per pharmacy. Objective Last 24 Hour Vital Signs Date Time Temp Pulse Resp B/P Pulse Ox O2 Delivery O2 Flow Rate FiO2 10/16/16 13:13 103/66 10/16/16 12:00 98.1 107 18 103/66 95 Room Air 10/16/16 11:42 104 10/16/16 09:39 102 18 96 Nasal Cannula 2.0 10/16/16 09:37 102 18 96 Nasal Cannula 2.0 10/16/16 09:19 105 132/79 10/16/16 08:00 97.0 91 18 132/79 97 Room Air 10/16/16 07:52 91 10/16/16 06:50 Nasal Cannula 2.0 10/16/16 06:49 98 Nasal Cannula 2.0 10/16/16 05:51 118/70 10/16/16 04:00 100 10/16/16 04:00 97.7 97 21 118/70 98 Nasal Cannula 2.0 10/16/16 00:00 97.4 94 22 142/75 96 Room Air 10/16/16 00:00 91 10/15/16 21:50 100/63 10/15/16 20:00 97.7 84 21 120/75 100 Room Air 10/15/16 20:00 92 10/15/16 19:43 Room Air 10/15/16 19:43 98 Room Air 10/15/16 19:42 76 18 98 Room Air 10/15/16 19:41 77 18 98 Room Air 10/15/16 18:20 97.5 10/15/16 16:00 89 Intake and Output 10/15/16 10/16/16 19:00 07:00 Intake Total 1010 ml Output Total 600 ml Balance 1010 ml -600 ml Intake Oral 1010 ml Output Urine Total 600 ml # Voids 4 # Bowel Movements 1 1 Laboratory Tests Test 10/16/16 07:30 White Blood Count 5.4 K/UL (4.8-10.8) Red Blood Count 3.19 M/UL (4.70-6.10) L Hemoglobin 9.8 G/DL (14.2-18.0) L Hematocrit 30.0 % (42.0-52.0) L Mean Corpuscular Volume 94 FL (80-99) Mean Corpuscular Hemoglobin 30.9 PG (27.0-31.0) Mean Corpuscular Hemoglobin Concent 32.8 G/DL (32.0-36.0) Red Cell Distribution Width 22.1 % (11.6-14.8) H Platelet Count 81 K/UL (150-450) L Mean Platelet Volume 9.5 FL (6.5-10.1) Neutrophils (%) (Auto) % (45.0-75.0) Lymphocytes (%) (Auto) % (20.0-45.0) Monocytes (%) (Auto) % (1.0-10.0) Eosinophils (%) (Auto) % (0.0-3.0) Basophils (%) (Auto) % (0.0-2.0) Differential Total Cells Counted 100 Neutrophils % (Manual) 80 % (45-75) H Lymphocytes % (Manual) 16 % (20-45) L Monocytes % (Manual) 4 % (1-10) Eosinophils % (Manual) 0 % (0-3) Basophils % (Manual) 0 % (0-2) Band Neutrophils 0 % (0-8) Platelet Estimate Decreased L Platelet Morphology Normal Hypochromasia 1+ Anisocytosis 2+ Prothrombin Time 11.0 SEC (9.30-11.50) Prothromb Time International Ratio 1.1 (0.9-1.1) Objective HEAD AND NECK: mild JVD. LUNGS: Clear. CARDIOVASCULAR: Shows regular S1 and S2 with no gallop or murmur. ABDOMEN: Soft. EXTREMITIES: No pitting edema. SKIN: His anterior chest skin color is changed due to radiation therapy. DARNELL RICK Oct 16, 2016 15:29
[2016-10-16 16:00] VITALS: BP 105/54
[2016-10-16] MEDS ORDERED: Warfarin Sodium 10mg ORAL ONE (17:00)
[2016-10-16 20:00] VITALS: BP 121/70
[2016-10-17] VITALS (7 sets, daily range): BP systolic 98–144; BP diastolic 50–91
[2016-10-17] MEDS: NovoLOG Insulin Flexpen SUBQ SCH ×4 (06:30→21:00)
[2016-10-17] MEDS: GlipiZIDE 5mg tab ORAL SCH ×2 (06:30→16:43)
[2016-10-17] MEDS: HydrALAZINE 50mg tab ORAL SCH ×3 (06:31→21:02)
[2016-10-17 07:14] LABS: INR 1.3 (0.9-1.1); PROTHROMBIN TIME 13.3 SEC (9.30-11.50)
[2016-10-17] MEDS: Aspirin EC 81mg tab ORAL SCH (08:04)
[2016-10-17] MEDS: Allopurinol 100mg Tab ORAL SCH ×2 (08:04→18:02)
[2016-10-17] MEDS: Diltiazem CD 180mg cap ORAL SCH (08:05)
[2016-10-17] MEDS: Norco 10mg/325mg tab ORAL PRN ×2 (08:09→13:58)
[2016-10-17] MEDS: Enoxaparin Sodium 300mg/3ml vial SUBQ SCH ×2 (08:39→21:02)
[2016-10-17] MEDS: Advair 250/50 Inhaler - 14 dose INH SCH ×2 (08:59→21:53)
--- NOTE | 2016-10-17 10:17 | General Progress Note ---
Assessment/Plan Assessment/Plan 1. Paroxysmal atrial fibrillation. 2. Type 2 diabetes mellitus. 3. Hypertensive cardiovascular disease. 4. Ischemic heart disease. 5. Status post coronary artery stenting x4. 6. Hyperlipidemia. 7. Right arm deep vein thrombosis. 8. History of polysubstance abuse. 9. History of superior vena caval syndrome. 10. History of a non-small cell lung cancer. 11. Chronic obstructive pulmonary disease. 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 Coumadinizing. Very slow to respond. INR 1.3. To increase dose. Subjective Allergies: Coded Allergies: BRITTANI INHIBITORS (Unverified Allergy, Unknown, 03/19/15) Uncoded Allergies: BRITTANI (Allergy, Unknown, 03/18/15) Subjective Less SOB but still not normal. No chest pain. Objective Last 24 Hour Vital Signs Date Time Temp Pulse Resp B/P Pulse Ox O2 Delivery O2 Flow Rate FiO2 10/17/16 09:01 106 18 96 Room Air 10/17/16 09:00 106 18 96 Room Air 10/17/16 08:05 101 144/91 10/17/16 08:00 96.5 56 17 144/91 95 Room Air 10/17/16 08:00 104 10/17/16 06:53 Room Air 10/17/16 06:52 96 Room Air 10/17/16 06:31 145/77 10/17/16 04:00 98.6 99 19 138/79 97 Room Air 10/17/16 04:00 112 10/17/16 00:00 98 10/17/16 00:00 97.3 98 19 98/60 97 Room Air 10/16/16 22:00 111/68 10/16/16 21:50 97.5 10/16/16 21:16 91 18 98 Room Air 10/16/16 21:15 91 18 98 Room Air 10/16/16 20:00 97.9 89 19 121/70 97 Room Air 10/16/16 20:00 90 10/16/16 18:38 Room Air 10/16/16 18:38 97 Room Air 10/16/16 16:00 97.5 88 18 105/54 100 Room Air 10/16/16 15:03 87 10/16/16 13:13 103/66 10/16/16 12:00 98.1 107 18 103/66 95 Room Air 10/16/16 11:42 104 Intake and Output 6/1/17 6/2/17 19:00 07:00 Intake Total 940 ml Output Total 250 ml Balance 940 ml -250 ml Intake Oral 940 ml Output Urine Total 250 ml # Voids 2 1 # Bowel Movements 2 Laboratory Tests 10/17/16 06:15: Prothrombin Time 13.3H, Prothromb Time International Ratio 1.3H Height (Feet): 5 Height (Inches): 8.00 Weight (Pounds): 145 Objective Cachechtic. CV RR Multiple collateral venous veins. Lungs B increased exp. Abd SNT. BS + E Rt. arm edema. CHERYL RABAGO Oct 17, 2016 10:17
[2016-10-17] MEDS ORDERED: Warfarin Sodium 10mg ORAL ONE ×2 (10:30→17:00)
--- NOTE | 2016-10-17 14:09 | Cardiac Electrophysiology PN ---
Assessment/Plan Status Narrative Normal left ventricular chamber size. Mild global LV hypokinesis. Left ventricular ejection fraction estimated to be 45%. No evidence of left ventricular hypertrophy. No evidence of pericardial fat or effusion. Right cardiac chamber sizes are within normal limits. Mild left atrial enlargement by 2D. Focal aortic valve sclerosis with adequate cusp excursion Mildly thickened mitral valve leaflets with normal excursion. Mild mitral annulus and aortic root calcification. Pulmonic valve not well visualized. Normal tricuspid valve structure. IVC is normal in size with physiologic collapse. A color flow and spectral Doppler study was performed and revealed: Trace aortic regurgitation. Moderate mitral regurgitation. Left ventricular diastolic dysfunction grade 1. No tricuspid regurgitation. Assessment/Plan 1. Chest pain. Likely due to underlying small-cell cancer and post radiation. Ruled out for myocardial infarction. EKG no acute ischemic changes.Echo EF 45% but no pericardial effusion. Urine toxicology is positive for cocaine that could be causing the patient's chest [place] [id number]! Chest CT angio showed no PE. 2. Coronary artery disease with prior stent placement and S/P Drug-eluting stent. Continue with Lipitor, Plavix, and aspirin. Off beta tameka in view of the patient's active cocaine use. Continue diltiazem. 3. Paroxysmal atrial fibrillation in sinus rhythm. On Coumadin and Lovenox until INR is therapeutic. 4. Hypertension on hydralazine 100 mg three times daily, diltiazem and HCTZ 5. Hyperlipidemia on Lipitor. 6. Cardiomyopathy with EF 45%. 7. Small cell lung cancer, status post radiation therapy and chemotherapy. 8. History of deep venous thrombosis. Continue Coumadin till INR more than 2. RICK RN Subjective Subjective Remained in SR or sinus tach. No chest pain or SOB. On Lovenox and coumadin per pharmacy. Objective Last 24 Hour Vital Signs Date Time Temp Pulse Resp B/P Pulse Ox O2 Delivery O2 Flow Rate FiO2 10/17/16 13:58 130/75 10/17/16 13:51 89 130/75 10/17/16 12:00 105 10/17/16 11:44 97.7 86 17 118/68 99 Room Air 10/17/16 09:01 106 18 96 Room Air 10/17/16 09:00 106 18 96 Room Air 10/17/16 08:05 101 144/91 10/17/16 08:00 96.5 56 17 144/91 95 Room Air 10/17/16 08:00 104 10/17/16 06:53 Room Air 10/17/16 06:52 96 Room Air 10/17/16 06:31 145/77 10/17/16 04:00 98.6 99 19 138/79 97 Room Air 10/17/16 04:00 112 10/17/16 00:00 98 10/17/16 00:00 97.3 98 19 98/60 97 Room Air 10/16/16 22:00 111/68 10/16/16 21:50 97.5 10/16/16 21:16 91 18 98 Room Air 10/16/16 21:15 91 18 98 Room Air 10/16/16 20:00 97.9 89 19 121/70 97 Room Air 10/16/16 20:00 90 10/16/16 18:38 Room Air 10/16/16 18:38 97 Room Air 10/16/16 16:00 97.5 88 18 105/54 100 Room Air 10/16/16 15:03 87 Intake and Output 10/16/16 10/17/16 19:00 07:00 Intake Total 940 ml Output Total 250 ml Balance 940 ml -250 ml Intake Oral 940 ml Output Urine Total 250 ml # Voids 2 1 # Bowel Movements 2 Laboratory Tests Test 10/17/16 06:15 Prothrombin Time 13.3 SEC (9.30-11.50) H Prothromb Time International Ratio 1.3 (0.9-1.1) H Objective HEAD AND NECK: mild JVD. LUNGS: Clear. CARDIOVASCULAR: Shows regular S1 and S2 with no gallop or murmur. ABDOMEN: Soft. EXTREMITIES: No pitting edema. SKIN: Anterior chest skin discolored due to radiation therapy. DARNELL RICK Oct 17, 2016 14:09
[2016-10-18] VITALS (7 sets, daily range): BP systolic 116–152; BP diastolic 67–91
[2016-10-18] MEDS: GlipiZIDE 5mg tab ORAL SCH ×2 (06:19→16:40)
[2016-10-18] MEDS: HydrALAZINE 50mg tab ORAL SCH ×3 (06:19→21:51)
[2016-10-18] MEDS: NovoLOG Insulin Flexpen SUBQ SCH ×5 (06:21→21:50)
[2016-10-18] MEDS: Advair 250/50 Inhaler - 14 dose INH SCH ×2 (07:14→20:58)
[2016-10-18 07:59] LABS: INR 1.4 (0.9-1.1); PROTHROMBIN TIME 14.9 SEC (9.30-11.50)
[2016-10-18] MEDS: Enoxaparin Sodium 300mg/3ml vial SUBQ SCH ×2 (09:00→21:53)
[2016-10-18] MEDS: Aspirin EC 81mg tab ORAL SCH (09:14)
[2016-10-18] MEDS: Diltiazem CD 180mg cap ORAL SCH (09:14)
[2016-10-18] MEDS: Allopurinol 100mg Tab ORAL SCH ×2 (09:16→17:19)
--- NOTE | 2016-10-18 10:10 | General Progress Note ---
Assessment/Plan Assessment/Plan 1.Paroxysmal atrial fibrillation. 2. Type 2 diabetes mellitus. 3. HTN 4. CAD s/p PCI 5. HLD 6. right arm DVT 7.hx of polysubstance abuse 8. hx of SVC syndrome 9. History of a non-small cell lung cancer. 10.. Chronic obstructive pulmonary disease. Plan continue coumadin per Rx Subjective Allergies: Coded Allergies: BRITTANI INHIBITORS (Unverified Allergy, Unknown, 03/19/15) Uncoded Allergies: BRITTANI (Allergy, Unknown, 03/18/15) Subjective C/o right arm pain Objective Last 24 Hour Vital Signs Date Time Temp Pulse Resp B/P Pulse Ox O2 Delivery O2 Flow Rate FiO2 10/18/16 09:14 115 152/89 10/18/16 07:44 97.3 115 20 152/89 100 Room Air 10/18/16 06:37 97.7 101 20 152/90 98 Room Air 10/18/16 06:19 126/70 10/18/16 04:00 91 10/18/16 04:00 97.7 101 20 152/91 98 Room Air 10/18/16 00:00 97.9 98 18 116/71 100 Room Air 10/18/16 00:00 101 10/17/16 21:58 108 18 97 Room Air 10/17/16 21:52 109 18 97 Room Air 10/17/16 21:02 100/50 10/17/16 20:11 97.9 104 20 100/50 96 Room Air 10/17/16 20:00 104 10/17/16 19:10 Room Air 10/17/16 19:09 99 Room Air 10/17/16 16:13 98.1 63 18 141/51 98 Room Air 10/17/16 16:00 94 10/17/16 13:58 130/75 10/17/16 13:51 89 130/75 10/17/16 12:00 105 10/17/16 11:44 97.7 86 17 118/68 99 Room Air Intake and Output 10/17/16 10/18/16 19:00 07:00 Intake Total 670 ml Balance 670 ml Intake Oral 670 ml # Voids 2 3 Laboratory Tests 10/18/16 06:10: Prothrombin Time 14.9H, Prothromb Time International Ratio 1.4H Height (Feet): 5 Height (Inches): 8.00 Weight (Pounds): 145 Objective NAD, AAOx3 CTAb/l,no rales, no rhonchi S1,S2,irregular, no M/R/G soft, non tender, BS+ edema in R upper arm DOMINGO MIRAMONTES Oct 18, 2016 10:10
--- NOTE | 2016-10-18 15:27 | Cardiac Electrophysiology PN ---
Assessment/Plan Status Narrative Normal left ventricular chamber size. Mild global LV hypokinesis. Left ventricular ejection fraction estimated to be 45%. No evidence of left ventricular hypertrophy. No evidence of pericardial fat or effusion. Right cardiac chamber sizes are within normal limits. Mild left atrial enlargement by 2D. Focal aortic valve sclerosis with adequate cusp excursion Mildly thickened mitral valve leaflets with normal excursion. Mild mitral annulus and aortic root calcification. Pulmonic valve not well visualized. Normal tricuspid valve structure. IVC is normal in size with physiologic collapse. A color flow and spectral Doppler study was performed and revealed: Trace aortic regurgitation. Moderate mitral regurgitation. Left ventricular diastolic dysfunction grade 1. No tricuspid regurgitation. Assessment/Plan 1. Chest pain. Likely due to underlying small-cell cancer and post radiation. Ruled out for myocardial infarction. EKG no acute ischemic changes.Echo EF 45% and no pericardial effusion. Urine toxicology is positive for cocaine that could be causing the patient's chest [place] [address]! Chest CT angio showed no PE. 2. Coronary artery disease with prior stent placement and S/P Drug-eluting stent. Continue with Lipitor, Plavix, Cardizem and aspirin. Off beta tameka in view of the patient's active cocaine use. 3. Paroxysmal atrial fibrillation in sinus rhythm. On Coumadin and Lovenox until INR is therapeutic. 4. Hypertension on hydralazine 100 mg three times daily, diltiazem and HCTZ 5. Hyperlipidemia on Lipitor. 6. Cardiomyopathy with EF 45%. 7. Small cell lung cancer, status post radiation therapy and chemotherapy. 8. History of deep venous thrombosis. Continue Coumadin till INR more than 2. 9. Cocaine use DW RN Subjective Subjective Remained in SR comfortable. On Lovenox and Coumadin per pharmacy.RN at bedside. Objective Last 24 Hour Vital Signs Date Time Temp Pulse Resp B/P Pulse Ox O2 Delivery O2 Flow Rate FiO2 10/18/16 15:17 96.9 89 20 123/70 96 Room Air 10/18/16 14:00 122/67 10/18/16 11:22 97.5 107 20 122/67 100 Room Air 10/18/16 09:14 115 152/89 10/18/16 07:44 97.3 115 20 152/89 100 Room Air 10/18/16 07:14 Nasal Cannula 2.0 28 10/18/16 07:14 108 18 96 Nasal Cannula 2.0 28 10/18/16 07:14 106 16 98 Nasal Cannula 2.0 28 10/18/16 07:14 106 20 Nasal Cannula 2.0 28 10/18/16 07:14 96 Nasal Cannula 2.0 28 10/18/16 06:37 97.7 101 20 152/90 98 Room Air 10/18/16 06:19 126/70 10/18/16 04:00 91 10/18/16 04:00 97.7 101 20 152/91 98 Room Air 10/18/16 00:00 97.9 98 18 116/71 100 Room Air 10/18/16 00:00 101 10/17/16 21:58 108 18 97 Room Air 10/17/16 21:52 109 18 97 Room Air 10/17/16 21:02 100/50 10/17/16 20:11 97.9 104 20 100/50 96 Room Air 10/17/16 20:00 104 10/17/16 19:10 Room Air 10/17/16 19:09 99 Room Air 10/17/16 16:13 98.1 63 18 141/51 98 Room Air 10/17/16 16:00 94 Intake and Output 10/17/16 10/18/16 19:00 07:00 Intake Total 670 ml Balance 670 ml Intake Oral 670 ml # Voids 2 3 Laboratory Tests Test 10/18/16 06:10 Prothrombin Time 14.9 SEC (9.30-11.50) H Prothromb Time International Ratio 1.4 (0.9-1.1) H Objective HEAD AND NECK: mild JVD. LUNGS: Clear. CARDIOVASCULAR: Shows regular S1 and S2 with no gallop or murmur. ABDOMEN: Soft. EXTREMITIES: No pitting edema. SKIN: Anterior chest skin discolored due to radiation therapy. DARNELL RICK Oct 18, 2016 15:27
[2016-10-18] MEDS: Norco 10mg/325mg tab ORAL PRN (16:53)
[2016-10-18] MEDS ORDERED: Warfarin Sodium 10mg ORAL ONE (17:00)
[2016-10-19] VITALS: BP 135/79
[2016-10-19 04:00] VITALS: BP 116/87
[2016-10-19] MEDS: HydrALAZINE 50mg tab ORAL SCH ×3 (06:02→22:14)
[2016-10-19] MEDS: GlipiZIDE 5mg tab ORAL SCH ×2 (06:03→16:58)
[2016-10-19] MEDS: NovoLOG Insulin Flexpen SUBQ SCH ×4 (06:03→20:52)
[2016-10-19 07:17] LABS: MEAN CORPUSCULAR HEMOGLOBIN 31.5 PG (27.0-31.0); MEAN CORPUSCULAR HGB CONC 33.2 G/DL (32.0-36.0); MEAN CORPUSCULAR VOLUME 95 FL (80-99); MEAN PLATELET VOLUME 10.1 FL (6.5-10.1); PLATELET COUNT 82 K/UL (150-450); RED BLOOD COUNT 3.01 M/UL (4.70-6.10); RED CELL DISTRIBUTION WIDTH 21.8 % (11.6-14.8); WHITE BLOOD COUNT 4.2 K/UL (4.8-10.8)
[2016-10-19 07:34] LABS: INR 1.7 (0.9-1.1)
[2016-10-19 07:35] VITALS: BP 146/82
--- NOTE | 2016-10-19 08:28 | Diagnostic Imaging Report ---
ndication: Shortness of breath, history of radiation therapy for lung cancer Technique: IV administration nonionic contrast. Spiral acquisitions obtained from the lung bases to the lung apices. Multiplanar and 3-D reconstructions were generated. Total dose length product 831 mGycm. CTDIvol(s) 12, 252, 18 mGy. Dose reduction achieved using automated exposure control Comparison: None Findings: Pulmonary arterial opacification is adequate but not optimal. No definite intraluminal filling defects or other findings to suggest acute pulmonary embolus are evident. No evidence of thoracic aortic aneurysm or dissection. No evidence of pulmonary artery dilatation or right ventricular dilatation. There is possibly left ventricular muscular hypertrophy. 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 There is possibly complete occlusion of the right innominate vein as well. There is an area of generalized increased attenuation of the soft tissues in the regions of the innominate veins measuring approximately 4 mm long axis dimension. This appears more infiltrative than masslike. The superior vena cava is strictured without evidence of mass or additional soft tissue. Extensive chest wall collaterals and enlarged azygos and hemiazygos veins are demonstrated. The lungs demonstrate hyperinflation, consistent with COPD. There is a small spiculated opacity in the inferior right upper lobe, image 32 of series 8, measuring approximately 4 mm in diameter. There is some spiculation without discrete mass extending into the medial anterior right upper lobe from the adjacent mediastinum. There is a small spiculated mass in the lateral inferior right upper lobe, image 52 of series 8. This measures 4 mm diameter. There is an area of groundglass opacity with central denser opacity in the left perihilar region, image 43 of series 8. No other evidence of mass, nodule, infiltrate, or effusion. Small opacities are seen on the mucosal surface of the trachea Other than the diffuse abnormal attenuation in the upper mediastinum, no mediastinal or hilar mass or adenopathy is evident. No evidence of pericardial effusion. The bones are unremarkable. The included upper, anatomy demonstrates numerous areas of abnormal enhancement within segment 2 and segment 4A of the liver. There are bilateral renal cysts Impression: No evidence of acute pulmonary embolus or other acute thoracic pathology Area of abnormal increased attenuation in the upper mediastinum, as described. 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 Uncertain as to whether this represents radiation induced strictures or extrinsic compression. Extensive resultant chest wall collateral veins Multiple small parenchymal opacities. These could represent areas of post inflammatory change, versus new or persistent neoplasm Small opacities other mucosal surface of the trachea, likely representing secretions. Unusual areas of enhancement within the liver, likely areas of arterial portal shunting Incidental finding bilateral renal cysts This agrees with the preliminary interpretation provided overnight by Dr. Ramirez The CT scanner at [facility] is accredited by the [employer] and the scans are performed using protocols designed to limit radiation exposure to as low as reasonably achievable to attain images of sufficient resolution adequate for diagnostic evaluation.
[2016-10-19] MEDS: Allopurinol 100mg Tab ORAL SCH ×2 (09:00→18:43)
[2016-10-19] MEDS: Aspirin EC 81mg tab ORAL SCH (09:00)
[2016-10-19] MEDS: Diltiazem CD 180mg cap ORAL SCH (09:00)
[2016-10-19] MEDS: Enoxaparin Sodium 300mg/3ml vial SUBQ SCH ×2 (09:06→20:43)
[2016-10-19] MEDS: Norco 10mg/325mg tab ORAL PRN ×2 (09:09→17:00)
--- NOTE | 2016-10-19 09:50 | General Progress Note ---
Assessment/Plan Assessment/Plan 1.Paroxysmal atrial fibrillation. 2. Type 2 diabetes mellitus. 3. HTN 4. CAD s/p PCI 5. HLD 6. right arm DVT 7.hx of polysubstance abuse 8. hx of SVC syndrome 9. History of a non-small cell lung cancer. 10.. Chronic obstructive pulmonary disease. Plan Today INR is 1.7 continue coumadin per Rx Subjective Allergies: Coded Allergies: BRITTANI INHIBITORS (Unverified Allergy, Unknown, 03/19/15) Uncoded Allergies: BRITTANI (Allergy, Unknown, 03/18/15) Subjective right arm pain getting better. Denies any c/o. Objective Last 24 Hour Vital Signs Date Time Temp Pulse Resp B/P Pulse Ox O2 Delivery O2 Flow Rate FiO2 10/19/16 09:00 117 146/82 10/19/16 07:35 96.8 117 20 146/82 100 Room Air 10/19/16 06:02 116/87 10/19/16 04:00 103 10/19/16 04:00 98.1 100 20 116/87 98 Room Air 2.0 28 10/19/16 00:00 98 10/19/16 00:00 98.1 92 20 135/79 98 Room Air 2.0 28 10/18/16 21:51 124/73 10/18/16 20:58 91 18 98 Room Air 10/18/16 20:57 91 18 98 Room Air 10/18/16 20:00 102 10/18/16 20:00 98.1 80 20 124/73 98 Nasal Cannula 2.0 28 10/18/16 19:07 Nasal Cannula 2.0 28 10/18/16 19:06 98 Nasal Cannula 2.0 28 10/18/16 16:00 97 10/18/16 15:17 96.9 89 20 123/70 96 Room Air 10/18/16 14:00 122/67 10/18/16 12:00 113 10/18/16 11:22 97.5 107 20 122/67 100 Room Air Intake and Output 10/18/16 10/19/16 19:00 07:00 Intake Total 820 ml Balance 820 ml Intake Oral 820 ml # Voids 4 2 # Bowel Movements 2 Laboratory Tests 10/19/16 06:10: White Blood Count 4.2L, Red Blood Count 3.01L, Hemoglobin 9.5L, Hematocrit 28.6L , Mean Corpuscular Volume 95, Mean Corpuscular Hemoglobin 31.5H, Mean Corpuscular Hemoglobin Concent 33.2, Red Cell Distribution Width 21.8H, Platelet Count 82L, Mean Platelet Volume 10.1, Neutrophils (%) (Auto) , Lymphocytes (%) (Auto) , Monocytes (%) (Auto) , Eosinophils (%) (Auto) , Basophils (%) (Auto) , Neutrophils % (Manual) [Pending], Lymphocytes % (Manual) [Pending], Platelet Estimate [Pending], Platelet Morphology [Pending], Prothrombin Time 18.0H, Prothromb Time International Ratio 1.7H Height (Feet): 5 Height (Inches): 8.00 Weight (Pounds): 145 Objective NAD, AAOx3 CTAb/l,no rales, no rhonchi S1,S2,irregular, no M/R/G soft, non tender, BS+ edema in R upper arm DOMINGO MIRAMONTES Oct 19, 2016 09:50
[2016-10-19] MEDS: Advair 250/50 Inhaler - 14 dose INH SCH ×2 (10:37→21:32)
[2016-10-19 10:46] LABS: BAND NEUTROPHILS % (MANUAL) 4 % (0-8); EOSINOPHILS % (MANUAL) 1 % (0-3); LYMPHOCYTES % (MANUAL) 25 % (20-45); NEUTROPHILS % (MANUAL) 70 % (45-75); NUCLEATED RED BLOOD CELLS 1 /100 WBC; TOTAL CELLS COUNTED 100
[2016-10-19 10:47] LABS: ANISOCYTOSIS 2+; BASOPHILS % (MANUAL) 0 % (0-2); HYPOCHROMASIA 1+; PLATELET ESTIMATE DECREASED; PLATELET MORPHOLOGY NORMAL
[2016-10-19 11:16] VITALS: BP 112/64
[2016-10-19 15:19] VITALS: BP 142/68
[2016-10-19 20:00] VITALS: BP 131/76
[2016-10-20] VITALS: BP 116/61
[2016-10-20] MEDS: Norco 10mg/325mg tab ORAL PRN ×3 (05:01→20:56)
[2016-10-20] MEDS: HydrALAZINE 50mg tab ORAL SCH ×3 (06:00→22:00)
[2016-10-20] MEDS: NovoLOG Insulin Flexpen SUBQ SCH ×4 (06:30→21:00)
[2016-10-20] MEDS: Advair 250/50 Inhaler - 14 dose INH SCH ×2 (06:53→22:51)
[2016-10-20] MEDS: GlipiZIDE 5mg tab ORAL SCH ×2 (06:54→16:50)
[2016-10-20 08:00] VITALS: BP 135/81
[2016-10-20 08:08] LABS: MEAN CORPUSCULAR HEMOGLOBIN 31.1 PG (27.0-31.0); MEAN CORPUSCULAR HGB CONC 32.6 G/DL (32.0-36.0); MEAN CORPUSCULAR VOLUME 95 FL (80-99); MEAN PLATELET VOLUME 7.8 FL (6.5-10.1); PLATELET COUNT 78 K/UL (150-450); RED BLOOD COUNT 3.03 M/UL (4.70-6.10); RED CELL DISTRIBUTION WIDTH 22.4 % (11.6-14.8); WHITE BLOOD COUNT 4.4 K/UL (4.8-10.8)
--- NOTE | 2016-10-20 08:12 | General Progress Note ---
Assessment/Plan Assessment/Plan 1. Paroxysmal atrial fibrillation. 2. Type 2 diabetes mellitus. 3. Hypertensive cardiovascular disease. 4. Ischemic heart disease. 5. Status post coronary artery stenting x4. 6. Hyperlipidemia. 7. Right arm deep vein thrombosis. 8. History of polysubstance abuse. 9. History of superior vena caval syndrome. 10. History of a non-small cell lung cancer. 11. Chronic obstructive pulmonary disease. 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 Coumadinizing. Very slow to respond. INR 1.7 yesterday. Coumadin was not given . Awaiting today's INR. Subjective Allergies: Coded Allergies: BRITTANI INHIBITORS (Unverified Allergy, Unknown, 03/19/15) Uncoded Allergies: BRITTANI (Allergy, Unknown, 03/18/15) Subjective Less SOB but still not normal. No chest pain. Objective Last 24 Hour Vital Signs Date Time Temp Pulse Resp B/P Pulse Ox O2 Delivery O2 Flow Rate FiO2 10/20/16 06:00 116/61 10/20/16 04:00 94 10/20/16 00:00 99 10/20/16 00:00 97.7 17 116/61 100 Room Air 2.0 10/19/16 22:14 131/76 10/19/16 21:28 Room Air 10/19/16 21:28 96 Room Air 10/19/16 21:28 95 16 96 Room Air 10/19/16 21:28 95 16 96 Room Air 10/19/16 20:00 96 10/19/16 20:00 98.1 104 20 131/76 97 Room Air 10/19/16 17:59 97.5 10/19/16 16:00 94 10/19/16 15:19 97.5 95 20 142/68 97 Room Air 10/19/16 14:19 112/64 10/19/16 12:00 102 10/19/16 11:16 98.1 99 20 112/64 99 Room Air 10/19/16 10:39 106 16 95 Room Air 10/19/16 10:39 105 16 95 Room Air 10/19/16 10:38 95 Room Air 10/19/16 10:38 Room Air 10/19/16 09:00 117 146/82 Intake and Output 10/19/16 10/20/16 19:00 07:00 Intake Total 1070 ml 120 ml Output Total 750 ml Balance 1070 ml -630 ml Intake Oral 1070 ml 120 ml Output Urine Total 750 ml # Voids 4 Laboratory Tests 10/20/16 07:35: White Blood Count [Pending], Red Blood Count [Pending], Hemoglobin [Pending], Hematocrit [Pending], Mean Corpuscular Volume [Pending], Mean Corpuscular Hemoglobin [Pending], Mean Corpuscular Hemoglobin Concent [Pending], Red Cell Distribution Width [Pending], Platelet Count [Pending], Mean Platelet Volume [ Pending], Neutrophils (%) (Auto) [Pending], Lymphocytes (%) (Auto) [Pending], Monocytes (%) (Auto) [Pending], Eosinophils (%) (Auto) [Pending], Basophils (%) (Auto) [Pending], Prothrombin Time [Pending], Prothromb Time International Ratio [Pending], Sodium Level [Pending], Potassium Level [Pending], Chloride Level [Pending], Carbon Dioxide Level [Pending], Blood Urea Nitrogen [Pending], Creatinine [Pending], Estimat Glomerular Filtration Rate [Pending], Glucose Level [Pending], Calcium Level [Pending] Height (Feet): 5 Height (Inches): 8.00 Weight (Pounds): 145 Objective Cachechtic. CV RR Multiple collateral venous veins. Lungs B increased exp. Abd SNT. BS + E Rt. arm edema. CHERYL RABAGO Oct 20, 2016 08:12
[2016-10-20 08:19] LABS: INR 1.6 (0.9-1.1)
[2016-10-20 08:21] LABS: CALCIUM 9.3 mg/dL (8.6-10.2); CREATININE 1.5 mg/dL (0.7-1.2); GLOMERULAR FILTRATION RATE 56.7 mL/min (>60); POTASSIUM 4.4 mEQ/L (3.4-4.9)
[2016-10-20] MEDS: Diltiazem CD 180mg cap ORAL SCH (09:19)
[2016-10-20] MEDS: Allopurinol 100mg Tab ORAL SCH ×2 (09:19→17:47)
[2016-10-20] MEDS: Aspirin EC 81mg tab ORAL SCH (09:19)
[2016-10-20] MEDS: Enoxaparin Sodium 300mg/3ml vial SUBQ SCH ×2 (09:21→20:55)
[2016-10-20 10:14] LABS: ANISOCYTOSIS 2+; BAND NEUTROPHILS % (MANUAL) 0 % (0-8); BASOPHILS % (MANUAL) 0 % (0-2); EOSINOPHILS % (MANUAL) 0 % (0-3); HYPOCHROMASIA 1+; LYMPHOCYTES % (MANUAL) 29 % (20-45); NEUTROPHILS % (MANUAL) 64 % (45-75); PLATELET ESTIMATE DECREASED; PLATELET MORPHOLOGY NORMAL; TOTAL CELLS COUNTED 100
[2016-10-20 12:00] VITALS: BP 132/81
--- NOTE | 2016-10-20 16:06 | Cardiac Electrophysiology PN ---
Assessment/Plan Status Narrative Normal left ventricular chamber size. Mild global LV hypokinesis. Left ventricular ejection fraction estimated to be 45%. No evidence of left ventricular hypertrophy. No evidence of pericardial fat or effusion. Right cardiac chamber sizes are within normal limits. Mild left atrial enlargement by 2D. Focal aortic valve sclerosis with adequate cusp excursion Mildly thickened mitral valve leaflets with normal excursion. Mild mitral annulus and aortic root calcification. Pulmonic valve not well visualized. Normal tricuspid valve structure. IVC is normal in size with physiologic collapse. A color flow and spectral Doppler study was performed and revealed: Trace aortic regurgitation. Moderate mitral regurgitation. Left ventricular diastolic dysfunction grade 1. No tricuspid regurgitation. Assessment/Plan 1. Chest pain. Likely due to underlying small-cell cancer and post radiation. Ruled out for myocardial infarction. EKG no acute ischemic changes.Echo EF 45% and no pericardial effusion. Urine toxicology is positive for cocaine that could be causing the patient's chest [place] [address]! Chest CT angio showed no PE. 2. Coronary artery disease with prior stent placement and S/P Drug-eluting stent. Continue with Lipitor, Plavix, Cardizem and aspirin. Off beta tameka in view of the patient's active cocaine use. 3. Paroxysmal atrial fibrillation in sinus rhythm. On Coumadin and Lovenox until INR is therapeutic. 4. Hypertension on hydralazine 100 mg three times daily, diltiazem CD 180. 5. Hyperlipidemia on Lipitor. 6. Cardiomyopathy with EF 45%. 7. Small cell lung cancer, status post radiation therapy and chemotherapy. 8. Deep venous thrombosis. Continue Coumadin till INR more than 2. 9. Cocaine use. Avoid Betablockers. RICK RN Subjective Subjective Remained in SR on Lovenox and Coumadin per pharmacy.RN at bedside.No chest pain or SOB. Objective Last 24 Hour Vital Signs Date Time Temp Pulse Resp B/P Pulse Ox O2 Delivery O2 Flow Rate FiO2 10/20/16 13:10 132/81 10/20/16 12:00 97.9 110 20 132/81 95 Room Air 10/20/16 12:00 109 10/20/16 09:19 104 135/81 10/20/16 08:00 96.8 104 17 135/81 98 Room Air 10/20/16 08:00 110 10/20/16 08:00 96.8 104 17 135/81 98 Room Air 10/20/16 06:53 100 Room Air 21 10/20/16 06:53 102 18 95 Room Air 21 10/20/16 06:53 102 18 95 Room Air 21 10/20/16 06:53 Room Air 21 10/20/16 06:00 116/61 10/20/16 04:00 94 10/20/16 00:00 99 10/20/16 00:00 97.7 17 116/61 100 Room Air 2.0 21 10/19/16 22:14 131/76 10/19/16 21:28 Room Air 21 10/19/16 21:28 96 Room Air 21 10/19/16 21:28 95 16 96 Room Air 21 10/19/16 21:28 95 16 96 Room Air 10/19/16 20:00 96 10/19/16 20:00 98.1 104 20 131/76 97 Room Air 10/19/16 17:59 97.5 Intake and Output 10/19/16 10/20/16 19:00 07:00 Intake Total 1070 ml 120 ml Output Total 750 ml Balance 1070 ml -630 ml Intake Oral 1070 ml 120 ml Output Urine Total 750 ml # Voids 4 Laboratory Tests Test 10/20/16 07:35 White Blood Count 4.4 K/UL (4.8-10.8) L Red Blood Count 3.03 M/UL (4.70-6.10) L Hemoglobin 9.4 G/DL (14.2-18.0) L Hematocrit 28.9 % (42.0-52.0) L Mean Corpuscular Volume 95 FL (80-99) Mean Corpuscular Hemoglobin 31.1 PG (27.0-31.0) H Mean Corpuscular Hemoglobin Concent 32.6 G/DL (32.0-36.0) Red Cell Distribution Width 22.4 % (11.6-14.8) H Platelet Count 78 K/UL (150-450) L Mean Platelet Volume 7.8 FL (6.5-10.1) Neutrophils (%) (Auto) % (45.0-75.0) Lymphocytes (%) (Auto) % (20.0-45.0) Monocytes (%) (Auto) % (1.0-10.0) Eosinophils (%) (Auto) % (0.0-3.0) Basophils (%) (Auto) % (0.0-2.0) Differential Total Cells Counted 100 Neutrophils % (Manual) 64 % (45-75) Lymphocytes % (Manual) 29 % (20-45) Monocytes % (Manual) 7 % (1-10) Eosinophils % (Manual) 0 % (0-3) Basophils % (Manual) 0 % (0-2) Band Neutrophils 0 % (0-8) Platelet Estimate Decreased L Platelet Morphology Normal Hypochromasia 1+ Anisocytosis 2+ Prothrombin Time 17.0 SEC (9.30-11.50) H Prothromb Time International Ratio 1.6 (0.9-1.1) H Sodium Level 138 mEQ/L (135-145) Potassium Level 4.4 mEQ/L (3.4-4.9) Chloride Level 99 mEQ/L (98-107) Carbon Dioxide Level 24 mEQ/L (20-30) Anion Gap 15 (5-15) Blood Urea Nitrogen 33 mg/dL (7-23) H Creatinine 1.5 mg/dL (0.7-1.2) H Estimat Glomerular Filtration Rate 56.7 mL/min (>60) Glucose Level 99 mg/dL (74-106) Calcium Level 9.3 mg/dL (8.6-10.2) Objective HEAD AND NECK: mild JVD. LUNGS: Clear. CARDIOVASCULAR: Regular S1 and S2 with no gallop or murmur. ABDOMEN: Soft. EXTREMITIES: No pitting edema. SKIN: Anterior chest skin discolored due to radiation. DARNELL RICK Oct 20, 2016 16:06
[2016-10-20 16:14] VITALS: BP 111/65
[2016-10-20] MEDS ORDERED: Warfarin Sod 10 MG, Warfarin Sod 2.5 MG ORAL ONE ×2 (17:00)
[2016-10-20 20:00] VITALS: BP 115/61
--- NOTE | 2016-10-20 22:54 | Consultation ---
Consult Note Consult Note Oncology Consult DOC: 10/20/16 ALICIA GONZALEZ: GEM CHIEF COMPLAINT: Shortness of breath and chest pain RFC: DVT AND NSCLC eval HISTORY OF PRESENT ILLNESS: This is a 66-year-old male with multiple medical problems. The patient presented to the emergency department with a shortness of breath lasting for several hours prior to admission. Has a hx of lung cancer (NSCLC) and has been treated with chemotherapy and has a decrease in the swelling of the neck and dvt of the right upper ext, oncology consult requested for further eval. PAST MEDICAL HISTORY: 1. Paroxysmal atrial fibrillation. 2. Type 2 diabetes mellitus. 3. Hypertensive cardiovascular disease. 4. Ischemic heart disease. 5. Status post coronary artery stenting x4. 6. Hyperlipidemia. 7. Right arm deep vein thrombosis. 8. History of polysubstance abuse. 9. History of superior vena caval syndrome. 10. History of a non-small cell lung cancer. 11. Chronic obstructive pulmonary disease. 12. Polysubstance abuse. MEDICATIONS: Home medications includes the [employer], allopurinol, baby aspirin, atorvastatin, Coreg, glipizide, hydralazine, hydrochlorothiazide, nitroglycerin , Advair Diskus, Brilinta, and Coumadin. ALLERGIES: BRITTANI inhibitor. SOCIAL HISTORY: The patient lives at home. FAMILY HISTORY: Unremarkable. ROS: Constitutional: No fever, no chills, no night sweats, no fatigue Skin: No rashes, lumps, itchiness, dryness HEENT: No GRAY, ear ache, visual changes, double vision, nosebleeds, sore throat, lumps, swollen glands Breasts: No lumps, pain, discharge Pulmonary: No cough, sputum, shortness of breath, coughing up blood, hemoptysis Cardiovascular: No chest pain, tightness, palpitations, syncope, claudication, orthopnea, PND GI: No nausea, vomiting, diarrhea, melena, hematochezia, change in appetite, abdominal pain : No dysuria, frequency, urgency, urinary incontinence, foamy urine Musculoskeletal: No joint swelling or muscle pain, trauma, back pain Neurologic: No dizziness, fainting, seizures, changes in smell or taste PHYSICAL EXAMINATION: GENERAL: This is an elderly male, who is in no acute distress. VITAL SIGNS: Have been reviewed and are stable HEENT: Head is normocephalic and atraumatic. Pupils are equal, round, and reactive to light and accommodation consensually. NECK: Supple. Trachea midline. There was no lymphadenopathy or thyromegaly. LUNGS: Few bilateral wheezes. HEART: Regular rate and rhythm without rubs, murmurs, or gallops. ABDOMEN: Soft. Bowel sounds are active. EXTREMITIES: No clubbing, cyanosis, or edema. NEUROLOGICAL: He is alert and oriented x4. Cranial nerves II-XII intact Laboratory Tests Test 10/20/16 07:35 White Blood Count 4.4 K/UL (4.8-10.8) L Red Blood Count 3.03 M/UL (4.70-6.10) L Hemoglobin 9.4 G/DL (14.2-18.0) L Hematocrit 28.9 % (42.0-52.0) L Mean Corpuscular Volume 95 FL (80-99) Mean Corpuscular Hemoglobin 31.1 PG (27.0-31.0) H Mean Corpuscular Hemoglobin Concent 32.6 G/DL (32.0-36.0) Red Cell Distribution Width 22.4 % (11.6-14.8) H Platelet Count 78 K/UL (150-450) L Mean Platelet Volume 7.8 FL (6.5-10.1) Neutrophils (%) (Auto) % (45.0-75.0) Lymphocytes (%) (Auto) % (20.0-45.0) Monocytes (%) (Auto) % (1.0-10.0) Eosinophils (%) (Auto) % (0.0-3.0) Basophils (%) (Auto) % (0.0-2.0) Differential Total Cells Counted 100 Neutrophils % (Manual) 64 % (45-75) Lymphocytes % (Manual) 29 % (20-45) Monocytes % (Manual) 7 % (1-10) Eosinophils % (Manual) 0 % (0-3) Basophils % (Manual) 0 % (0-2) Band Neutrophils 0 % (0-8) Platelet Estimate Decreased L Platelet Morphology Normal Hypochromasia 1+ Anisocytosis 2+ Prothrombin Time 17.0 SEC (9.30-11.50) H Prothromb Time International Ratio 1.6 (0.9-1.1) H Sodium Level 138 mEQ/L (135-145) Potassium Level 4.4 mEQ/L (3.4-4.9) Chloride Level 99 mEQ/L (98-107) Carbon Dioxide Level 24 mEQ/L (20-30) Anion Gap 15 (5-15) Blood Urea Nitrogen 33 mg/dL (7-23) H Creatinine 1.5 mg/dL (0.7-1.2) H Estimat Glomerular Filtration Rate 56.7 mL/min (>60) Glucose Level 99 mg/dL (74-106) Calcium Level 9.3 mg/dL (8.6-10.2) IMAGING STUDIES: Chest x-ray, no acute findings. ASSESSMENT and RECS: # Pancytopenia likely related to chemotherapy recently received, continue to monitor and review peripheral smear # NSCLC - has been getting chemotherapy in outpatient oncology clinic # Right arm deep vein thrombosis. On coumadin, continue coumadin to inr 2-3 # History of superior vena caval syndrome. Improved with chemo, if in future worse, consider radiation therapy # Shortness of breath etiology unclear. Have ruled out PE, has seen cardiology service # Hypertensive cardiovascular disease. # Ischemic heart disease. # Status post coronary artery stenting x4. # Hyperlipidemia. # Polysubstance abuse # Greatly appreciate consult! Anurag Salguero Oct 20, 2016 22:53
[2016-10-21] VITALS: BP 113/60
[2016-10-21] MEDS: GlipiZIDE 5mg tab ORAL SCH (06:27)
[2016-10-21] MEDS: HydrALAZINE 50mg tab ORAL SCH (06:28)
[2016-10-21] MEDS: NovoLOG Insulin Flexpen SUBQ SCH ×2 (06:29→11:38)
[2016-10-21] MEDS: Norco 10mg/325mg tab ORAL PRN (06:34)
[2016-10-21 08:00] VITALS: BP 123/60
[2016-10-21] MEDS: Advair 250/50 Inhaler - 14 dose INH SCH (08:01)
[2016-10-21 08:12] LABS: MEAN CORPUSCULAR HEMOGLOBIN 30.8 PG (27.0-31.0); MEAN CORPUSCULAR HGB CONC 32.6 G/DL (32.0-36.0); MEAN CORPUSCULAR VOLUME 95 FL (80-99); PLATELET COUNT 79 K/UL (150-450); RED BLOOD COUNT 2.93 M/UL (4.70-6.10); RED CELL DISTRIBUTION WIDTH 22.5 % (11.6-14.8); WHITE BLOOD COUNT 3.6 K/UL (4.8-10.8)
[2016-10-21 08:28] LABS: INR 1.7 (0.9-1.1); PROTHROMBIN TIME 18.3 SEC (9.30-11.50)
[2016-10-21] MEDS: Aspirin EC 81mg tab ORAL SCH (09:02)
[2016-10-21] MEDS: Diltiazem CD 180mg cap ORAL SCH (09:02)
[2016-10-21] MEDS: Allopurinol 100mg Tab ORAL SCH (09:02)
[2016-10-21] MEDS: Enoxaparin Sodium 300mg/3ml vial SUBQ SCH (09:05)
[2016-10-21 10:09] LABS: ANISOCYTOSIS 2+; BAND NEUTROPHILS % (MANUAL) 0 % (0-8); BASOPHILS % (MANUAL) 0 % (0-2); EOSINOPHILS % (MANUAL) 2 % (0-3); HYPOCHROMASIA 1+; LYMPHOCYTES % (MANUAL) 36 % (20-45); NEUTROPHILS % (MANUAL) 59 % (45-75); PLATELET ESTIMATE DECREASED; PLATELET MORPHOLOGY NORMAL; TOTAL CELLS COUNTED 100
[2016-10-21 10:11] LABS: PATH BLOOD SMEAR/OMC SENT TO PATHOLOGIST
--- NOTE | 2016-10-21 11:38 | General Progress Note ---
Assessment/Plan Assessment/Plan 1. Paroxysmal atrial fibrillation. 2. Type 2 diabetes mellitus. 3. Hypertensive cardiovascular disease. 4. Ischemic heart disease. 5. Status post coronary artery stenting x4. 6. Hyperlipidemia. 7. Right arm deep vein thrombosis. 8. History of polysubstance abuse. 9. History of superior vena caval syndrome. 10. History of a non-small cell lung cancer. 11. Chronic obstructive pulmonary disease. 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 Coumadinizing. Very slow to respond. INR 1.7 with 10 mg of Coumadin daily. DC home with 10 mg of Coumadin daily. F/U in my office in 48 hours. Patient was given an exact explanation of the importance of monitoring his Coumadin level and the riaks of bleeding. He promises to come to my office this in the presence of his RN. Subjective Allergies: Coded Allergies: BRITTANI INHIBITORS (Unverified Allergy, Unknown, 03/19/15) Uncoded Allergies: BRITTANI (Allergy, Unknown, 03/18/15) Subjective Less SOB but still not normal. No chest pain. Objective Last 24 Hour Vital Signs Date Time Temp Pulse Resp B/P Pulse Ox O2 Delivery O2 Flow Rate FiO2 10/21/16 09:02 103 123/60 10/21/16 08:53 103 18 97 Room Air 10/21/16 08:52 103 20 97 Room Air 10/21/16 08:00 106 10/21/16 08:00 97.3 106 19 123/60 96 Room Air 10/21/16 08:00 97.3 109 19 123/60 97 Room Air 10/21/16 07:51 Room Air 10/21/16 07:50 97 Room Air 10/21/16 06:28 140/75 10/21/16 04:00 95 10/21/16 00:00 97.7 101 18 113/60 97 Room Air 2.0 10/21/16 00:00 100 10/20/16 22:00 112/61 10/20/16 21:30 95 20 97 Room Air 10/20/16 21:30 100 18 97 Room Air 10/20/16 20:00 97 10/20/16 20:00 98.1 97 20 115/61 98 Room Air 2.0 10/20/16 19:30 100 Room Air 21 6/5/17 19:30 Room Air 21 10/20/16 16:14 98.1 101 18 111/65 98 10/20/16 16:00 90 10/20/16 13:10 132/81 10/20/16 12:00 97.9 110 20 132/81 95 Room Air 10/20/16 12:00 109 Intake and Output 10/20/16 10/21/16 19:00 07:00 Intake Total 680 ml 240 ml Output Total 850 ml 300 ml Balance -170 ml -60 ml Intake Oral 680 ml 240 ml Output Urine Total 850 ml 300 ml # Voids 3 3 # Bowel Movements 1 Laboratory Tests 10/21/16 07:50: White Blood Count 3.6L, Red Blood Count 2.93L, Hemoglobin 9.0L, Hematocrit 27.8L , Mean Corpuscular Volume 95, Mean Corpuscular Hemoglobin 30.8, Mean Corpuscular Hemoglobin Concent 32.6, Red Cell Distribution Width 22.5H, Platelet Count 79L, Mean Platelet Volume 7.0, Neutrophils (%) (Auto) , Lymphocytes (%) (Auto) , Monocytes (%) (Auto) , Eosinophils (%) (Auto) , Basophils (%) (Auto) , Differential Total Cells Counted 100, Neutrophils % ( Manual) 59, Lymphocytes % (Manual) 36, Monocytes % (Manual) 3, Eosinophils % ( Manual) 2, Basophils % (Manual) 0, Band Neutrophils 0, Platelet Estimate DecreasedL, Platelet Morphology Normal, Hypochromasia 1+, Anisocytosis 2+, Prothrombin Time 18.3H, Prothromb Time International Ratio 1.7H Height (Feet): 5 Height (Inches): 8.00 Weight (Pounds): 145 Objective Cachechtic. CV RR Multiple collateral venous veins. Lungs B increased exp. Abd SNT. BS + E Rt. arm edema. CHERYL RABAGO Oct 21, 2016 11:38
[2016-10-21] MEDS ORDERED: ALLOPURINOL100 M1 ORAL (11:42)
[2016-10-21] MEDS ORDERED: APRESOLINE50 MG ORAL (11:42)
[2016-10-21] MEDS ORDERED: ASPIRIN EC81 MG ORAL (11:42)
[2016-10-21] MEDS ORDERED: PLAVIX75 MG ORAL (11:42)
[2016-10-21] MEDS ORDERED: DIURIL25 MG ORAL (11:42)
[2016-10-21] MEDS ORDERED: GLIPIZIDE5 MG ORAL (11:42)
[2016-10-21] MEDS ORDERED: NOVOLOG100 UNITS1 SUBQ (11:42)
[2016-10-21] MEDS ORDERED: ATORVASTATIN CA40 MG ORAL (11:42)
[2016-10-21] MEDS ORDERED: DILTIAZEM 24HR180 M3 ORAL (11:42)
[2016-10-21] MEDS ORDERED: ADVAIR 250/501 PUFFS INH (11:42)
[2016-10-21 12:00] VITALS: BP 128/70
[2016-10-21] MEDS ORDERED: Warfarin Sod 10 MG, Warfarin Sod 2.5 MG ORAL ONE ×2 (17:00)
--- NOTE | 2016-10-21 20:30 | General Progress Note ---
Assessment/Plan Assessment/Plan ASSESSMENT and RECS: # Pancytopenia likely related to chemotherapy recently received, continue to monitor and review peripheral smear # NSCLC - has been getting chemotherapy in outpatient oncology clinic # Right arm deep vein thrombosis. On coumadin, continue coumadin to inr 2-3 # History of superior vena caval syndrome. Improved with chemo, if in future worse, consider radiation therapy # Shortness of breath etiology unclear. Have ruled out PE, has seen cardiology service # Hypertensive cardiovascular disease. # Ischemic heart disease. # Status post coronary artery stenting x4. # Hyperlipidemia. # Polysubstance abuse # Greatly appreciate consult! Subjective Constitutional: Reports: no symptoms HEENT: Reports: no symptoms Cardiovascular: Reports: no symptoms Respiratory: Reports: no symptoms Gastrointestinal/Abdominal: Reports: no symptoms Genitourinary: Reports: no symptoms Neurologic/Psychiatric: Reports: no symptoms Endocrine: Reports: no symptoms Allergies: Coded Allergies: BRITTANI INHIBITORS (Unverified Allergy, Unknown, 03/19/15) Uncoded Allergies: BRITTANI (Allergy, Unknown, 03/18/15) Subjective no fevers or chills, clear for dc, will see as outpatient for chemo Objective Last 24 Hour Vital Signs Date Time Temp Pulse Resp B/P Pulse Ox O2 Delivery O2 Flow Rate FiO2 10/21/16 12:00 99.3 98 19 128/70 Nasal Cannula 2.0 99 10/21/16 12:00 96 10/21/16 09:02 103 123/60 10/21/16 08:53 103 18 97 Room Air 21 10/21/16 08:52 103 20 97 Room Air 21 10/21/16 08:00 106 10/21/16 08:00 97.3 106 19 123/60 96 Room Air 10/21/16 08:00 97.3 109 19 123/60 97 Room Air 10/21/16 07:51 Room Air 10/21/16 07:50 97 Room Air 21 10/21/16 06:28 140/75 10/21/16 04:00 95 10/21/16 00:00 97.7 101 18 113/60 97 Room Air 2.0 21 10/21/16 00:00 100 10/20/16 22:00 112/61 10/20/16 21:30 95 20 97 Room Air 21 10/20/16 21:30 100 18 97 Room Air 21 Intake and Output 10/20/16 10/21/16 19:00 07:00 Intake Total 680 ml 240 ml Output Total 850 ml 300 ml Balance -170 ml -60 ml Intake Oral 680 ml 240 ml Output Urine Total 850 ml 300 ml # Voids 3 3 # Bowel Movements 1 Laboratory Tests 10/21/16 07:50: White Blood Count 3.6L, Red Blood Count 2.93L, Hemoglobin 9.0L, Hematocrit 27.8L , Mean Corpuscular Volume 95, Mean Corpuscular Hemoglobin 30.8, Mean Corpuscular Hemoglobin Concent 32.6, Red Cell Distribution Width 22.5H, Platelet Count 79L, Mean Platelet Volume 7.0, Neutrophils (%) (Auto) , Lymphocytes (%) (Auto) , Monocytes (%) (Auto) , Eosinophils (%) (Auto) , Basophils (%) (Auto) , Differential Total Cells Counted 100, Neutrophils % ( Manual) 59, Lymphocytes % (Manual) 36, Monocytes % (Manual) 3, Eosinophils % ( Manual) 2, Basophils % (Manual) 0, Band Neutrophils 0, Platelet Estimate DecreasedL, Platelet Morphology Normal, Hypochromasia 1+, Anisocytosis 2+, Prothrombin Time 18.3H, Prothromb Time International Ratio 1.7H Height (Feet): 5 Height (Inches): 8.00 Weight (Pounds): 145 General Appearance: WD/WN EENT: PERRL/EOMI Neck: non-tender Cardiovascular: normal peripheral pulses Respiratory/Chest: chest wall non-tender Abdomen: normal bowel sounds Edema: no edema noted Arm (L), no edema noted Arm (R), no edema noted Leg (L), no edema noted Leg (R), no edema noted Pedal (L), no edema noted Pedal (R) Anurag Salguero Oct 21, 2016 20:30
--- NOTE | 2016-10-22 20:07 | Discharge Summary ---
Discharge Summary Hospital Course Date of Admission October 13, 2016 at 03:50 Date of Discharge Oct 21, 2016 at 13:30 Admitting Diagnosis congestive heart failure HPI Ricardo Beckwith is a 66 year old male who was admitted on October 13, 2016 at 03:50 for Congestive Heart Failure Hospital Course [id number] Discharge Discharge Disposition Patient was discharged to Home (01) Discharge Diagnoses: Patricia Mcelroy NP Oct 22, 2016 20:07
--- NOTE | 2016-10-23 03:30 | Discharge Summary 2 SIG ---
DATE OF ADMISSION: 10/13/2016 DATE OF DISCHARGE: 10/21/2016 CONSULTANTS: 1. Anurag Salguero M.D. 2. Quinton Bradley M.D. 3. Josh Merino M.D. BRIEF HOSPITAL COURSE: The patient is a 66-year-old male with multiple medical problems, presented to ED complaining of shortness of breath. The patient had a previous myocardial infarction and coronary artery disease with congestive heart failure, history of diabetes, and hypertension, and had a history of thymic cancer. At ED, labs showed BNP was elevated. Chest x-ray showed cardiomegaly with vascular congestion. He was then admitted for further evaluation and was seen by Dr. Merino as the patient has extensive venous thrombosis and occlusions including superior vena cava syndrome. He was on Coumadin, which was found to be subtherapeutic. Lovenox was added. On evaluation, right pedal pulse was better than the left, but feet feels warm and without any ulcer or gangrene. There was no evidence of acute clinical venous complication. He was seen by Dr. Bradley for evaluation of hypertension. He had an echocardiogram at [facility] with ejection fraction of 57% and underwent radiation therapy at [facility] with Dr. Narinder Rivera. Chest pain was secondary to underlying small cell CA. He was ruled out for myocardial infarction. Serial cardiac enzymes were negative. The EKG did not show acute ischemic changes. However, urine toxicology was positive for cocaine, which could be causing chest pain as well. He was continued on Lipitor, Hydralazine, Plavix, and aspirin. Coreg was discontinued in view of the patient's active cocaine use. He was given diltiazem. He was followed by Dr. Salguero . Pancytopenia was assessed to be likely related to chemotherapy and echocardiogram done showed ejection fraction of 45%. D-dimer was elevated to 11,125. CTA of the chest showed no evidence of acute PE or acute thoracic pathology. Noninvasive vascular studies were done. There was acute thrombus in the right upper extremity and was continued on Coumadin and Lovenox. The patient was eventually discharged home on 10 mg of Coumadin and advised to follow up in 48 hours and was given explanation of importance of monitoring his Coumadin level and risks of bleeding. He was eventually discharged home. FINAL DIAGNOSES: 1. Acute deep venous thrombosis, right arm. 2. Paroxysmal atrial fibrillation. 3. Type 2 diabetes mellitus. 4. Hypertensive cardiovascular disease. 5. Status post coronary artery stenting. 6. Hyperlipidemia. 7. Polysubstance abuse. 8. Non-small cell carcinoma, undergoing chemotherapy. 9. History of superior vena cava syndrome. 10. Cardiomyopathy. 11. Hypertension. Harsh Maher M.D. I have been assigned to dictate discharge summary on this account and I was not involved in the patient's management. Patricia Mcelroy N.P. DR: LEXUS JOB#: [id number] CC: FERNANDEZ
== END 2016-10-21 13:30 | disposition home or self-care (01) | DRG 197 ==
LOC: EDBD 00:13 → EMR 00:30 → 2E 03:50 → EDBEDREQ 04:13
DX: I82.621 Acute embolism and thrombosis of deep veins of right upper extremity (principal); D61.810 Antineoplastic chemotherapy induced pancytopenia; C34.90 Malignant neoplasm of unspecified part of unspecified bronchus or lung; I50.9 Heart failure, unspecified; I87.1 Compression of vein; I11.9 Hypertensive heart disease without heart failure; J44.9 Chronic obstructive pulmonary disease, unspecified; F14.10 Cocaine abuse, uncomplicated; I25.2 Old myocardial infarction; Z79.01 Long term (current) use of anticoagulants; E78.5 Hyperlipidemia, unspecified; I48.0 Paroxysmal atrial fibrillation; Z85.238 Personal history of other malignant neoplasm of thymus; E11.9 Type 2 diabetes mellitus without complications; F19.10 Other psychoactive substance abuse, uncomplicated; I25.10 Atherosclerotic heart disease of native coronary artery without angina pectoris; Z95.5 Presence of coronary angioplasty implant and graft; I82.210 Acute embolism and thrombosis of superior vena cava; R07.9 Chest pain, unspecified; Z92.3 Personal history of irradiation; I25.9 Chronic ischemic heart disease, unspecified; Z79.899 Other long term (current) drug therapy; T45.1X5A Adverse effect of antineoplastic and immunosuppressive drugs, initial encounter
CPT/HCPCS: 36415; 36600; 71010; 71275; 80048; 80053; 80300; 81001; 82550; 82553; 82803; 82962; 83880; 84484; 85007; 85025; 85060; 85379; 85610; 85730; 93005; 93306; 93880; 93925; 93970; 93971; 94640; 94664; 94760; J1815

== ENCOUNTER 2017-01-05 09:10 | Inpatient (IN) | payer MEDICARE, MEDICAID ==
[~2017-01-05] VITALS: Ht 175.3 cm; Wt 68.0 kg
[2017-01-05 09:10] VITALS: BP 137/86
[~2017-01-05 09:10] MED LIST changes: +ADVAIR 250-501 EACH INH; +ADVAIR 250/501 PUFFS INH; +ALLOPURINOL100 M1 ORAL; +APRESOLINE50 MG ORAL; +ASPIR 8181 MG ORAL; +ASPIRIN EC81 MG ORAL; +ATORVASTATIN CA40 MG ORAL; +BRILINTA90 MG PO; +CARVEDILOL12.5 MG ORAL; +DILTIAZEM 24HR180 M3 ORAL; +DIPHENHYDRAMINE25 M1 ORAL; +DIURIL25 MG ORAL; +GLIPIZIDE5 MG ORAL; +HYDRALAZINE HC100 MG ORAL; +HYDROCHLOROTHIA25 MG ORAL; +HYDROCODON-ACE1 EA13 ORAL; +NITROSTAT0.4 M2 SL; +NOVOLOG100 UNITS1 SUBQ; +PLAVIX75 MG ORAL
[2017-01-05 09:41] LABS: BASOPHILS % (AUTO) 0.7 % (0.0-2.0); EOSINOPHILS % (AUTO) 0.4 % (0.0-3.0); LYMPHOCYTES % (AUTO) 14.5 % (20.0-45.0); MEAN CORPUSCULAR HEMOGLOBIN 33.7 PG (27.0-31.0); MEAN CORPUSCULAR HGB CONC 32.5 G/DL (32.0-36.0); MEAN CORPUSCULAR VOLUME 104 FL (80-99); MEAN PLATELET VOLUME 7.4 FL (6.5-10.1); NEUTROPHILS % (AUTO) 73.5 % (45.0-75.0); PLATELET COUNT 174 K/UL (150-450); RED BLOOD COUNT 3.08 M/UL (4.70-6.10); RED CELL DISTRIBUTION WIDTH 16.6 % (11.6-14.8); WHITE BLOOD COUNT 6.1 K/UL (4.8-10.8)
[2017-01-05 09:53] LABS: TROPONIN I < 0.30 ng/mL (<=0.30)
[2017-01-05 09:54] LABS: ALANINE AMINOTRANSFERASE 17 U/L (3-41); ALBUMIN/GLOBULIN RATIO 1.7 (1.0-2.7); ANION GAP 12 (5-15); ASPARTATE AMINO TRANSFERASE 17 U/L (5-40); CALCIUM 9.3 mg/dL (8.6-10.2); CARBON DIOXIDE 25 mEQ/L (20-30); CHLORIDE 106 mEQ/L (98-107); CREATININE 1.4 mg/dL (0.7-1.2); GLOMERULAR FILTRATION RATE > 60 mL/min (>60); HEMOLYSIS 13; POTASSIUM 4.2 mEQ/L (3.4-4.9); SODIUM 143 mEQ/L (135-145); TOTAL PROTEIN 6.5 g/dL (6.6-8.7)
--- NOTE | 2017-01-05 10:02 | Emergency Room Report ---
History of Present Illness General Chief Complaint: Dyspnea/Respdistress Source: Patient, EMS Present Illness HPI 66YOM BIBEMS for acute SOB this morning. No associated cough, fever/chills, chest pain, abd pain, headache. History of CAD s/p stents. On ASA and AC History of COPD Allergies: Coded Allergies: BRITTANI INHIBITORS (Unverified Allergy, Unknown, 03/19/15) Uncoded Allergies: BRITTANI (Allergy, Unknown, 03/18/15) Patient History Past Medical History: CAD, CHF, COPD Past Surgical History: other - stent placeemnt Pertinent Family History: none Social History: Denies: alcohol use, drug use, smoking Immunizations: UTD Reviewed Nursing Documentation: PMH: Agreed, PSxH: Agreed Nursing Documentation-PMH Hx Cardiac Problems: Yes - AR; stents Hx Hypertension: Yes Hx COPD: Yes Hx Diabetes: Yes Hx Cancer: Yes - ?Lung Hx Gastrointestinal Problems: No Hx Neurological Problems: Yes Hx Cerebrovascular Accident: Yes - stroke (06/2016) Review of Systems All Other Systems: negative except mentioned in HPI Physical Exam Vital Signs Date Time Temp Pulse Resp B/P Pulse Ox O2 Delivery O2 Flow Rate FiO2 01/05/17 09:03 97.3 77 18 143/81 99 Room Air Sp02 EP Interpretation: reviewed, normal General Appearance: normal inspection, well appearing, no apparent distress, alert, GCS 15, non-toxic Head: normocephalic, atraumatic Eyes: bilateral eye EOMI, bilateral eye PERRL ENT: normal ENT inspection, hearing grossly normal, normal voice Neck: normal inspection, full range of motion, supple, no bony tend Respiratory: normal inspection, lungs clear, normal breath sounds, no rhonchi, no respiratory distress, no retraction, no accessory muscle use, no wheezing Cardiovascular #1: regular rate, rhythm, no edema Gastrointestinal: normal inspection, normal bowel sounds, non tender, soft, no guarding, no hernia Musculoskeletal: normal inspection, back normal, normal range of motion, Adama' s Sign negative Neurologic: normal inspection, alert, oriented x3, responsive, trim operator III-XII nml as tested, motor strength/tone normal, speech normal Psychiatric: normal inspection, judgement/insight normal, mood/affect normal Skin: normal inspection, normal color, no rash Lymphatic: normal inspection Medical Decision Making Medicare Attestation I Rashard Dallas MD hereby attest that the medical record entry for date of service, 01/05/17 accurately reflects signatures/notations that I made in my capacity as MD when I treated/diagnosed the above listed Medicare beneficiary. I attest that this information is true, accurate and complete to the best of my knowledge. I understand that any falsification, omission, or concealment of material fact may subject me to administrative, civil, or criminal liability. This patient warrants hospital admission for extreme of age and has a condition that cannot be treated as outpatient. Diagnostic Impression: Primary Impression: Dyspnea Qualified Codes: R06.00 - Dyspnea, unspecified ER Course VSS. Afebrile. Not hypoxic H&H stable. Troponin 0. ECG is NSR. No ischemia CXR unchanged from previous September 2016 study Needs admission for ACS rule out Endorsed to Dr Campa at 1044am for tele admit EKG Diagnostic Results Rate: normal Rhythm: NSR ST Segments: no acute changes ASA given to the pt in ED: No Rhythm Strip Diag. Results EP Interpretation: yes Rate: 71 Rhythm: NSR, no PVC's, no ectopy Chest X-Ray Diagnostic Results Chest X-Ray Diagnostic Results : Chest X-Ray Ordered: Yes # of Views/Limited/Complete: 1 View Indication: Shortness of Breath EP Interpretation: Yes Interpretation: no consolidation, no effusion, no pneumothorax, no acute cardiopulmonary disease Impression: No acute disease Last Vital Signs Date Time Temp Pulse Resp B/P Pulse Ox O2 Delivery O2 Flow Rate FiO2 01/05/17 09:03 97.3 77 18 143/81 99 Room Air Status: improved Disposition: ADMITTED INPATIENT Condition: Serious Referrals: NON PHYSICIAN (PCP) RASHARD DALLAS M.D. Jan 05, 2017 10:02
[2017-01-05 10:05] LABS: CKMB 2.3 ng/mL (< 6.7)
[2017-01-05] MEDS ORDERED: ALLOPURINOL100 M1 ORAL (11:05)
[2017-01-05] MEDS ORDERED: CARVEDILOL12.5 MG ORAL (11:06)
[2017-01-05] MEDS ORDERED: BRILINTA90 MG PO (11:06)
[2017-01-05] MEDS ORDERED: NITROSTAT0.4 M1 SL (11:08)
[2017-01-05] MEDS ORDERED: NORCO 10/3251 EA ORAL (11:08)
[2017-01-05] MEDS ORDERED: DIPHENHYDRAMINE25 M1 ORAL (11:08)
--- NOTE | 2017-01-05 11:11 | Diagnostic Imaging Report ---
Indication: Dyspnea Comparison: 5 4010 A single view chest radiograph was obtained. Findings: Cardiomediastinal appearance is within normal limits for age. Pulmonary vascularity is appropriate. The diaphragmatic contour is smooth and costophrenic angles are sharp. No pleural effusions are identified. The bones are unremarkable. Impression: No acute findings
[2017-01-05] MEDS ORDERED: Nitroglycerin Subl 0.4mg tab (Bottle Of 25) SL PRN (13:00)
[2017-01-05] MEDS ORDERED: HydrALAZINE 50mg tab ORAL ONE (13:30)
--- NOTE | 2017-01-05 14:42 | Cardiac Electrophysiology PN ---
Subjective Subjective [id number] 1. Prersyncope. 2. Coronary artery disease with prior stent placement and S/P Drug-eluting stent. Continue with Lipitor, Plavix, and aspirin. Off beta tameka in view of the patient's active cocaine use. Continue diltiazem. 3. Paroxysmal atrial fibrillation in sinus rhythm. 4. Hypertension on hydralazine 100 mg three times daily, diltiazem and HCTZ 5. Hyperlipidemia on Lipitor. 6. Cardiomyopathy with EF 45%. 7. Small cell lung cancer, status post radiation therapy and chemotherapy. 8. History of deep venous thrombosis. Continue Coumadin. DW ER Objective Last 24 Hour Vital Signs Date Time Temp Pulse Resp B/P Pulse Ox O2 Delivery O2 Flow Rate FiO2 01/05/17 09:10 97.4 77 17 137/86 99 Room Air 01/05/17 09:10 77 17 Room Air 01/05/17 09:03 97.3 77 18 143/81 99 Room Air Laboratory Tests Test 01/05/17 08:21 White Blood Count 6.1 K/UL (4.8-10.8) Red Blood Count 3.08 M/UL (4.70-6.10) L Hemoglobin 10.4 G/DL (14.2-18.0) L Hematocrit 31.9 % (42.0-52.0) L Mean Corpuscular Volume 104 FL (80-99) H Mean Corpuscular Hemoglobin 33.7 PG (27.0-31.0) H Mean Corpuscular Hemoglobin Concent 32.5 G/DL (32.0-36.0) Red Cell Distribution Width 16.6 % (11.6-14.8) H Platelet Count 174 K/UL (150-450) Mean Platelet Volume 7.4 FL (6.5-10.1) Neutrophils (%) (Auto) 73.5 % (45.0-75.0) Lymphocytes (%) (Auto) 14.5 % (20.0-45.0) L Monocytes (%) (Auto) 11.0 % (1.0-10.0) H Eosinophils (%) (Auto) 0.4 % (0.0-3.0) Basophils (%) (Auto) 0.7 % (0.0-2.0) Sodium Level 143 mEQ/L (135-145) Potassium Level 4.2 mEQ/L (3.4-4.9) Chloride Level 106 mEQ/L (98-107) Carbon Dioxide Level 25 mEQ/L (20-30) Anion Gap 12 (5-15) Blood Urea Nitrogen 23 mg/dL (7-23) Creatinine 1.4 mg/dL (0.7-1.2) H Estimat Glomerular Filtration Rate > 60 mL/min (>60) Glucose Level 41 mg/dL (74-106) L Calcium Level 9.3 mg/dL (8.6-10.2) Total Bilirubin 0.3 mg/dL (0.0-1.2) Aspartate Amino Transf (AST/SGOT) 17 U/L (5-40) Alanine Aminotransferase (ALT/SGPT) 17 U/L (3-41) Alkaline Phosphatase 74 U/L (40-129) Total Creatine Kinase 142 U/L (38-174) Creatine Kinase MB 2.3 ng/mL (< 6.7) Creatine Kinase MB Relative Index 1.6 Troponin I < 0.30 ng/mL (<=0.30) Pro-B-Type Natriuretic Peptide 363 pg/mL (0-125) H Total Protein 6.5 g/dL (6.6-8.7) L Albumin 4.1 g/dL (3.5-5.2) Globulin 2.4 g/dL Albumin/Globulin Ratio 1.7 (1.0-2.7) DARNELL RICK Jan 05, 2017 14:42
[2017-01-05 16:00] VITALS: BP 126/78
[2017-01-05] MEDS: HydrALAZINE 50mg tab ORAL SCH ×2 (16:52→21:31)
[2017-01-05] MEDS: Norco 10mg/325mg tab ORAL PRN ×2 (16:52→21:33)
[2017-01-05] MEDS: GlipiZIDE 5mg tab ORAL SCH (16:53)
[2017-01-05 17:06] LABS: INR 4.3 (0.9-1.1); PROTHROMBIN TIME 45.7 SEC (9.30-11.50)
--- NOTE | 2017-01-05 17:30 | History and Physical Report ---
DATE OF ADMISSION: 01/05/2017 CHIEF COMPLAINT: Chest pain. HISTORY OF PRESENT ILLNESS: This is a well-known 66-year-old male, who was admitted by me to this hospital in September and October of 2016. The patient has multiple medical problems as listed below. The patient is complaining of shortness of breath and chest pain. PAST MEDICAL HISTORY: 1. History of paroxysmal atrial fibrillation. 2. Type 2 diabetes mellitus. 3. Hypertensive cardiovascular disease. 4. Ischemic heart disease. 5. Status post coronary artery bypass stenting. 6. Hyperlipidemia. 7. History of right arm deep vein thrombosis. 8. History of polysubstance abuse. 9. History of superior vena caval syndrome. 10. History of a non-small cell lung cancer. 11. Chronic obstructive pulmonary disease. HOME MEDICATIONS: He is on multiple medications including the following: Hydralazine, allopurinol, hydrochlorothiazide, Brilinta, Coumadin 10 mg p.o. daily, Coreg, glipizide, baby aspirin, atorvastatin, Advair Diskus 250/50, Nitrostat, Hickman, and Benadryl. ALLERGIES: Listed to BRITTANI inhibitors. FAMILY HISTORY: Unremarkable. SOCIAL HISTORY: He lives at home. HABITS: He is a cigarette smoker. There is also history of illicit drug abuse in the past. REVIEW OF SYSTEMS: HEENT: Hearing and eyesight are normal. Endocrine: Significant for type 2 diabetes mellitus. Cardiovascular: Significant for atypical chest pain. Respiratory: He admits to orthopnea, paroxysmal nocturnal dyspnea, and dyspnea on effort. Neurologic: No history of stroke, syncope, or Parkinson disease. PHYSICAL EXAMINATION: GENERAL: This is an elderly male, who is in no acute distress. VITAL SIGNS: Blood pressure 128/70, pulse 96 and regular, respirations 19, and temperature 99.3 degrees. HEENT: The head is normocephalic and atraumatic. Pupils are equal, round, and reactive to light and accommodation consensually. NECK: Supple. Trachea midline. There was no lymphadenopathy or thyromegaly. LUNGS: Clear to auscultation and percussion. HEART: Regular rate and rhythm without rubs, murmurs, or gallops. ABDOMEN: Soft. Bowel sounds were active. LABORATORY AND ANCILLARY DATA: Hemoglobin 10.4, otherwise within normal limits. Serum chemistry, creatinine 1.4 and glucose 41, otherwise within normal limits. A chest x-ray unchanged from previous September of 2016. EKG, normal sinus rhythm and no signs of ischemia. ASSESSMENT: 1. Chest pain, rule out acute coronary ischemia. 2. History of paroxysmal atrial fibrillation. 3. Type 2 diabetes mellitus. 4. Hypertensive cardiovascular disease. 5. Ischemic heart disease. 6. Status post coronary artery bypass stenting. 7. Hyperlipidemia. 8. History of right arm deep vein thrombosis. 9. History of polysubstance abuse. 10. History of superior vena caval syndrome. 11. History of a non-small cell lung cancer. 12. Chronic obstructive pulmonary disease. PLAN: 1. Admit to telemetry. 2. Continue home medications. 3. Cardiology consult with Dr. 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 Harsh Maher M.D. DR: BRIAN JOB#: [id number] CC:
[2017-01-05] MEDS: Advair 250/50 Inhaler - 14 dose INH SCH (19:51)
[2017-01-05 20:00] VITALS: BP 118/78
[2017-01-05] MEDS: Carvedilol 12.5mg tab ORAL SCH (21:00)
[2017-01-06] VITALS: BP 143/65
--- NOTE | 2017-01-06 00:15 | Consultation ---
DATE OF CONSULTATION: CARDIOLOGY CONSULTATION CONSULTING PHYSICIAN: Quinton Bradley M.D. REFERRING PHYSICIAN: Harsh Maher M.D. REASON FOR CONSULTATION: Management of hypertension, paroxysmal atrial fibrillation, and congestive heart failure. HISTORY OF PRESENT ILLNESS: The patient is a 66-year-old gentleman with history of hypertension, paroxysmal atrial fibrillation, and congestive heart failure with ejection fraction of 45% as well as history of chest cancer, who is currently undergoing chemotherapy under the management of Dr. Salguero. The patient already completed his course of radiation therapy. The patient came to the emergency room with shortness of breath and feeling like passing out. The patient also has a history of coronary artery disease and prior stent placement. Cardiology consultation was obtained for further evaluation. At the time of my evaluation, presented to the emergency room, there is no evidence of any chest pain and the syncopal episode has not recurred. PAST MEDICAL HISTORY: 1. Hypertension. 2. Congestive heart failure with ejection fraction of 45%. 3. Paroxysmal atrial fibrillation. 4. Coronary artery disease per prior drug-eluting stent placement. 5. Hyperlipidemia. 6. Small-cell lung cancer, status post radiation therapy and chemotherapy. 7. History of deep vein thrombosis. 8. History of cocaine use in the past. SOCIAL HISTORY: He lives at home. He does not smoke or drink alcohol. FAMILY HISTORY: Noncontributory. REVIEW OF SYSTEMS: Review of systems was thoroughly performed and was negative other than what was mentioned in the history of present illness. PHYSICAL EXAMINATION: VITAL SIGNS: Blood pressure is 137/86, pulse 77, respirations 18, and he is afebrile. HEAD AND NECK: Shows no JVD or carotid bruits. LUNGS: Clear. CARDIOVASCULAR: Shows regular S1 and S2 with no gallop or murmur. ABDOMEN: Soft. EXTREMITIES: No pitting edema. LABORATORY DATA: Labs show white count of 6.1, hemoglobin 10.4, hematocrit 32, and platelet count is 174,000. Sodium is 142, potassium 4.2, BUN of 23, and creatinine 1.4. Troponin is negative and BNP is 363. His INR is 1.7. It was originally from October. ASSESSMENT AND PLAN: 1. Paroxysmal atrial fibrillation, currently in sinus rhythm. On the previous admission in October, the patient was on Coumadin also. We will check the INR. 2. Status post syncope. Echocardiogram will be repeated to completely rule out myocardial infarction protocol. 3. History of coronary artery disease with prior stent placement. On aspirin, Plavix, and Lipitor. Keep the patient off beta-tameka in view of history of cocaine use and continue Cardizem. I will check urine tox screen again. 4. Hypertension. On Cardizem, hydrochlorothiazide, and hydralazine 100 mg three times a day. 5. Hyperlipidemia. 6. Small cell lung cancer, status post radiation therapy and currently on chemotherapy. 7. History of deep vein thrombosis, on Coumadin. Thank you very much, Dr. Maher, for allowing me to participate in the care of this patient. Please do not hesitate to contact me for any questions regarding my evaluation. Quinton Bradley M.D. DR: JL JOB#: [id number] CC:
[2017-01-06 04:00] VITALS: BP 144/94
[2017-01-06] MEDS: HydrALAZINE 50mg tab ORAL SCH ×3 (05:22→21:32)
[2017-01-06] MEDS: GlipiZIDE 5mg tab ORAL SCH ×2 (06:30→16:42)
[2017-01-06 07:37] LABS: BASOPHILS % (AUTO) 0.9 % (0.0-2.0); EOSINOPHILS % (AUTO) 0.6 % (0.0-3.0); MEAN CORPUSCULAR HEMOGLOBIN 33.3 PG (27.0-31.0); MEAN CORPUSCULAR HGB CONC 32.7 G/DL (32.0-36.0); MEAN CORPUSCULAR VOLUME 102 FL (80-99); MEAN PLATELET VOLUME 6.1 FL (6.5-10.1); NEUTROPHILS % (AUTO) 68.5 % (45.0-75.0); PLATELET COUNT 173 K/UL (150-450); RED BLOOD COUNT 3.17 M/UL (4.70-6.10); WHITE BLOOD COUNT 4.5 K/UL (4.8-10.8)
[2017-01-06] MEDS: Advair 250/50 Inhaler - 14 dose INH SCH ×2 (07:38→19:55)
[2017-01-06 07:50] LABS: INR 4.2 (0.9-1.1); PROTHROMBIN TIME 44.3 SEC (9.30-11.50)
[2017-01-06 07:58] VITALS: BP 138/80
[2017-01-06 08:18] LABS: ANION GAP 11 (5-15); CALCIUM 9.2 mg/dL (8.6-10.2); CARBON DIOXIDE 25 mEQ/L (20-30); CHLORIDE 105 mEQ/L (98-107); CREATININE 1.3 mg/dL (0.7-1.2); GLOMERULAR FILTRATION RATE > 60 mL/min (>60); HEMOLYSIS 2; POTASSIUM 4.3 mEQ/L (3.4-4.9); SODIUM 141 mEQ/L (135-145)
[2017-01-06 08:47] LABS: TROPONIN I < 0.30 ng/mL (<=0.30)
[2017-01-06] MEDS: Aspirin Baby 81mg ORAL SCH (08:55)
[2017-01-06] MEDS: Carvedilol 12.5mg tab ORAL SCH ×2 (08:55→21:00)
[2017-01-06] MEDS: Allopurinol 100mg Tab ORAL SCH (08:55)
[2017-01-06 11:50] VITALS: BP 108/69
--- NOTE | 2017-01-06 12:03 | General Progress Note ---
Assessment/Plan Assessment/Plan Atypical CP -per Cards h/p PTE - on coumadin INR within range AODM stable Subjective Allergies: Coded Allergies: BRITTANI INHIBITORS (Unverified Allergy, Unknown, 03/19/15) Uncoded Allergies: BRITTANI (Allergy, Unknown, 03/18/15) Subjective Still having epigatric pain. Objective Last 24 Hour Vital Signs Date Time Temp Pulse Resp B/P Pulse Ox O2 Delivery O2 Flow Rate FiO2 01/06/17 11:50 97.5 84 18 108/69 98 Room Air 01/06/17 08:55 93 138/80 01/06/17 08:00 93 01/06/17 07:58 97.0 93 18 138/80 99 Room Air 01/06/17 07:56 Nasal Cannula 2.0 28 01/06/17 07:56 94 16 99 Nasal Cannula 2.0 28 01/06/17 07:55 94 18 99 Nasal Cannula 2.0 28 01/06/17 07:55 99 Nasal Cannula 2.0 28 01/06/17 05:22 144/94 01/06/17 04:00 97.3 82 20 144/94 97 Room Air 01/06/17 04:00 79 01/06/17 00:00 97.5 71 21 143/65 96 Room Air 01/06/17 00:00 82 01/05/17 21:31 118/78 01/05/17 21:00 93 01/05/17 21:00 87 118/78 01/05/17 20:00 97.7 90 20 118/78 99 Room Air 01/05/17 19:56 Nasal Cannula 2.0 28 01/05/17 19:55 98 Nasal Cannula 2.0 28 01/05/17 19:54 90 20 99 Nasal Cannula 2.0 28 01/05/17 19:53 88 20 98 Nasal Cannula 2.0 28 01/05/17 17:51 97.1 01/05/17 16:52 126/78 01/05/17 16:15 83 01/05/17 16:00 97.1 93 20 126/78 96 Room Air 01/05/17 15:51 97 17 131/77 100 Room Air Intake and Output 01/05/17 01/06/17 19:00 07:00 Intake Total 360 ml 500 ml Balance 360 ml 500 ml Intake Oral 360 ml 500 ml # Voids 1 # Bowel Movements 2 Laboratory Tests 8/21/17 15:22: Urine Opiates Screen Negative, Urine Barbiturates Screen Negative, Phencyclidine (PCP) Screen Negative, Urine Amphetamines Screen Negative, Urine Benzodiazepines Screen Negative, Urine Cocaine Screen Negative, Urine Marijuana (THC) Screen Negative 01/05/17 16:42: Prothrombin Time 45.7H, Prothromb Time International Ratio 4.3H 01/06/17 06:45: Prothrombin Time 44.3H, Prothromb Time International Ratio 4.2H, White Blood Count 4.5L, Red Blood Count 3.17L, Hemoglobin 10.6L, Hematocrit 32.3L, Mean Corpuscular Volume 102H, Mean Corpuscular Hemoglobin 33.3H, Mean Corpuscular Hemoglobin Concent 32.7, Red Cell Distribution Width 17.0H, Platelet Count 173, Mean Platelet Volume 6.1L, Neutrophils (%) (Auto) 68.5, Lymphocytes (%) (Auto) 18.0L, Monocytes (%) (Auto) 12.0H, Eosinophils (%) (Auto) 0.6, Basophils (%) ( Auto) 0.9, Sodium Level 141, Potassium Level 4.3, Chloride Level 105, Carbon Dioxide Level 25, Anion Gap 11, Blood Urea Nitrogen 20, Creatinine 1.3H, Estimat Glomerular Filtration Rate > 60, Glucose Level 77, Calcium Level 9.2, Troponin I < 0.30, Pro-B-Type Natriuretic Peptide 230H, Thyroid Stimulating Hormone (TSH) 2.700, Free Thyroxine 1.26 Height (Feet): 5 Height (Inches): 9.00 Weight (Pounds): 150 Objective Obese Cv RR Lungs CTA Abd SNT. BS + E No CCE CHERYL RABAGO Jan 06, 2017 12:03
--- NOTE | 2017-01-06 12:21 | Consultation ---
Consult Note Consult Note HISTORY OF PRESENT ILLNESS: 66-year-old male, presents shortness of breath and chest pain. Patient with COPD and notes cough but no sputum production. no fevers or chills. Patient care reviewed in detail. Patient has extensive cardiopulmonary status. Findings reviewed and discussed. PAST MEDICAL HISTORY: 1. History of paroxysmal atrial fibrillation. 2. Type 2 diabetes mellitus. 3. Hypertensive cardiovascular disease. 4. Ischemic heart disease. 5. Status post coronary artery bypass stenting. 6. Hyperlipidemia. 7. History of right arm deep vein thrombosis. 8. History of polysubstance abuse. 9. History of superior vena caval syndrome. 10. History of a non-small cell lung cancer. 11. Chronic obstructive pulmonary disease. HOME MEDICATIONS: reviewed and reconciled ALLERGIES: reviewed FAMILY HISTORY: Unremarkable. SOCIAL HISTORY: He lives at home. nicotine addiction REVIEW OF SYSTEMS: all 10 points reviewed PHYSICAL EXAMINATION: VITAL SIGNS: Blood pressure 132/70, pulse 86 and regular, respirations 18, and temperature 99.2 degrees. WDWN NAD reduced breath sounds bilaterally without rhonchi or wheeze [id number] without MRG NABS nontender no HSM no CCE nonfocal EOMI LABORATORY AND ANCILLARY DATA: Labs Test 01/05/17 08:21 01/05/17 15:22 01/05/17 16:42 01/06/17 06:45 White Blood Count 6.1 K/UL (4.8-10.8) 4.5 K/UL (4.8-10.8) Red Blood Count 3.08 M/UL (4.70-6.10) 3.17 M/UL (4.70-6.10) Hemoglobin 10.4 G/DL (14.2-18.0) 10.6 G/DL (14.2-18.0) Hematocrit 31.9 % (42.0-52.0) 32.3 % (42.0-52.0) Mean Corpuscular Volume 104 FL (80-99) 102 FL (80-99) Mean Corpuscular Hemoglobin 33.7 PG (27.0-31.0) 33.3 PG (27.0-31.0) Mean Corpuscular Hemoglobin Concent 32.5 G/DL (32.0-36.0) 32.7 G/DL (32.0-36.0) Red Cell Distribution Width 16.6 % (11.6-14.8) 17.0 % (11.6-14.8) Platelet Count 174 K/UL (150-450) 173 K/UL (150-450) Mean Platelet Volume 7.4 FL (6.5-10.1) 6.1 FL (6.5-10.1) Neutrophils (%) (Auto) 73.5 % (45.0-75.0) 68.5 % (45.0-75.0) Lymphocytes (%) (Auto) 14.5 % (20.0-45.0) 18.0 % (20.0-45.0) Monocytes (%) (Auto) 11.0 % (1.0-10.0) 12.0 % (1.0-10.0) Eosinophils (%) (Auto) 0.4 % (0.0-3.0) 0.6 % (0.0-3.0) Basophils (%) (Auto) 0.7 % (0.0-2.0) 0.9 % (0.0-2.0) Sodium Level 143 mEQ/L (135-145) 141 mEQ/L (135-145) Potassium Level 4.2 mEQ/L (3.4-4.9) 4.3 mEQ/L (3.4-4.9) Chloride Level 106 mEQ/L (98-107) 105 mEQ/L (98-107) Carbon Dioxide Level 25 mEQ/L (20-30) 25 mEQ/L (20-30) Anion Gap 12 (5-15) 11 (5-15) Blood Urea Nitrogen 23 mg/dL (7-23) 20 mg/dL (7-23) Creatinine 1.4 mg/dL (0.7-1.2) 1.3 mg/dL (0.7-1.2) Estimat Glomerular Filtration Rate > 60 mL/min (>60) > 60 mL/min (>60) Glucose Level 41 mg/dL (74-106) 77 mg/dL (74-106) Calcium Level 9.3 mg/dL (8.6-10.2) 9.2 mg/dL (8.6-10.2) Total Bilirubin 0.3 mg/dL (0.0-1.2) Aspartate Amino Transf (AST/SGOT) 17 U/L (5-40) Alanine Aminotransferase (ALT/SGPT) 17 U/L (3-41) Alkaline Phosphatase 74 U/L (40-129) Total Creatine Kinase 142 U/L (38-174) Creatine Kinase MB 2.3 ng/mL (< 6.7) Creatine Kinase MB Relative Index 1.6 Troponin I < 0.30 ng/mL (<=0.30) < 0.30 ng/mL (<=0.30) Pro-B-Type Natriuretic Peptide 363 pg/mL (0-125) 230 pg/mL (0-125) Total Protein 6.5 g/dL (6.6-8.7) Albumin 4.1 g/dL (3.5-5.2) Globulin 2.4 g/dL Albumin/Globulin Ratio 1.7 (1.0-2.7) Urine Opiates Screen Negative (NEGATIVE) Urine Barbiturates Screen Negative (NEGATIVE) Phencyclidine (PCP) Screen Negative (NEGATIVE) Urine Amphetamines Screen Negative (NEGATIVE) Urine Benzodiazepines Screen Negative (NEGATIVE) Urine Cocaine Screen Negative (NEGATIVE) Urine Marijuana (THC) Screen Negative (NEGATIVE) Prothrombin Time 45.7 SEC (9.30-11.50) 44.3 SEC (9.30-11.50) Prothromb Time International Ratio 4.3 (0.9-1.1) 4.2 (0.9-1.1) Thyroid Stimulating Hormone (TSH) 2.700 uIU/mL (0.300-4.500) Free Thyroxine 1.26 ng/dL (0.86-1.85) ASSESSMENT: 1. COPD 2. History of paroxysmal atrial fibrillation. 3. Type 2 diabetes mellitus. 4. Dyspnea 5. Ischemic heart disease. 6. Status post coronary artery bypass stenting. 7. Hyperlipidemia. 8. History of right arm deep vein thrombosis. 9. History of polysubstance abuse. 10. History of superior vena caval syndrome. 11. History of a non-small cell lung cancer. PLAN care noted Advair as is respiratory care oxygen therapy if needed pulmonary montiel stable outpatient PFT recommended CATIA MCGARRY Jan 06, 2017 12:21
[2017-01-06] MEDS: Sucralfate 1gm tab ORAL SCH ×3 (13:16→21:00)
[2017-01-06 15:49] VITALS: BP 118/77
--- NOTE | 2017-01-06 17:29 | Cardiac Electrophysiology PN ---
Assessment/Plan Assessment/Plan 1. Prersyncope. No AR. ? etiology. 2. Coronary artery disease with prior stent placement and S/P Drug-eluting stent. Continue with Lipitor, Plavix, aspirin and Coreg 12.5 bid. 3. Paroxysmal atrial fibrillation in sinus rhythm on Coreg and Coumadin. 4. Hypertension on hydralazine 100 mg three times daily,Coreg and HCTZ 5. Hyperlipidemia on Lipitor. 6. Cardiomyopathy with EF 45%. 7. Small cell lung cancer, status post radiation therapy and chemotherapy. 8. History of deep venous thrombosis. Continue Coumadin per pharmacy. INR was more than 4 on admission.. 9. History of superior vena caval syndrome. DW RN Subjective Subjective Feeling better. Coumadin was held as INR was more than 4. No chest pain or SOB. Objective Last 24 Hour Vital Signs Date Time Temp Pulse Resp B/P Pulse Ox O2 Delivery O2 Flow Rate FiO2 01/06/17 16:00 85 01/06/17 15:49 97.5 90 20 118/77 100 Room Air 01/06/17 14:52 118/77 01/06/17 12:00 82 01/06/17 11:50 97.5 84 18 108/69 98 Room Air 01/06/17 08:55 93 138/80 01/06/17 08:00 93 01/06/17 07:58 97.0 93 18 138/80 99 Room Air 01/06/17 07:56 Nasal Cannula 2.0 01/06/17 07:56 94 16 99 Nasal Cannula 2.0 01/06/17 07:55 94 18 99 Nasal Cannula 2.0 01/06/17 07:55 99 Nasal Cannula 2.0 01/06/17 05:22 144/94 01/06/17 04:00 97.3 82 20 144/94 97 Room Air 01/06/17 04:00 79 01/06/17 00:00 97.5 71 21 143/65 96 Room Air 01/06/17 00:00 82 01/05/17 21:31 118/78 01/05/17 21:00 93 01/05/17 21:00 87 118/78 01/05/17 20:00 97.7 90 20 118/78 99 Room Air 01/05/17 19:56 Nasal Cannula 2.0 28 8/21/17 19:55 98 Nasal Cannula 2.0 01/05/17 19:54 90 20 99 Nasal Cannula 2.0 28 01/05/17 19:53 88 20 98 Nasal Cannula 2.0 01/05/17 17:51 97.1 Intake and Output 01/05/17 01/06/17 19:00 07:00 Intake Total 360 ml 500 ml Balance 360 ml 500 ml Intake Oral 360 ml 500 ml # Voids 1 # Bowel Movements 2 Laboratory Tests Test 01/06/17 06:45 White Blood Count 4.5 K/UL (4.8-10.8) L Red Blood Count 3.17 M/UL (4.70-6.10) L Hemoglobin 10.6 G/DL (14.2-18.0) L Hematocrit 32.3 % (42.0-52.0) L Mean Corpuscular Volume 102 FL (80-99) H Mean Corpuscular Hemoglobin 33.3 PG (27.0-31.0) H Mean Corpuscular Hemoglobin Concent 32.7 G/DL (32.0-36.0) Red Cell Distribution Width 17.0 % (11.6-14.8) H Platelet Count 173 K/UL (150-450) Mean Platelet Volume 6.1 FL (6.5-10.1) L Neutrophils (%) (Auto) 68.5 % (45.0-75.0) Lymphocytes (%) (Auto) 18.0 % (20.0-45.0) L Monocytes (%) (Auto) 12.0 % (1.0-10.0) H Eosinophils (%) (Auto) 0.6 % (0.0-3.0) Basophils (%) (Auto) 0.9 % (0.0-2.0) Prothrombin Time 44.3 SEC (9.30-11.50) H Prothromb Time International Ratio 4.2 (0.9-1.1) H Sodium Level 141 mEQ/L (135-145) Potassium Level 4.3 mEQ/L (3.4-4.9) Chloride Level 105 mEQ/L (98-107) Carbon Dioxide Level 25 mEQ/L (20-30) Anion Gap 11 (5-15) Blood Urea Nitrogen 20 mg/dL (7-23) Creatinine 1.3 mg/dL (0.7-1.2) H Estimat Glomerular Filtration Rate > 60 mL/min (>60) Glucose Level 77 mg/dL (74-106) Calcium Level 9.2 mg/dL (8.6-10.2) Troponin I < 0.30 ng/mL (<=0.30) Pro-B-Type Natriuretic Peptide 230 pg/mL (0-125) H Thyroid Stimulating Hormone (TSH) 2.700 uIU/mL (0.300-4.500) Free Thyroxine 1.26 ng/dL (0.86-1.85) Objective HEAD AND NECK: Mild JVD LUNGS: Clear. CARDIOVASCULAR: Regular S1 and S2 with no gallop or murmur. ABDOMEN: Soft. EXTREMITIES: No pitting edema. DARNELL RICK Jan 06, 2017 17:29
[2017-01-06] MEDS: Norco 10mg/325mg tab ORAL PRN (17:36)
[2017-01-07] VITALS: BP 117/67
[2017-01-07 04:00] VITALS: BP 115/64
[2017-01-07] MEDS: HydrALAZINE 50mg tab ORAL SCH ×3 (06:00→21:34)
[2017-01-07] MEDS: GlipiZIDE 5mg tab ORAL SCH ×2 (06:38→17:05)
[2017-01-07 07:41] LABS: INR 3.7 (0.9-1.1); PROTHROMBIN TIME 39.3 SEC (9.30-11.50)
[2017-01-07 07:46] VITALS: BP 122/74
[2017-01-07] MEDS: Norco 10mg/325mg tab ORAL PRN ×3 (08:01→21:33)
[2017-01-07] MEDS: Allopurinol 100mg Tab ORAL SCH (08:01)
[2017-01-07] MEDS: Sucralfate 1gm tab ORAL SCH ×4 (08:01→21:27)
[2017-01-07] MEDS: Aspirin Baby 81mg ORAL SCH (08:01)
[2017-01-07] MEDS: Carvedilol 12.5mg tab ORAL SCH ×2 (08:02→21:28)
[2017-01-07] MEDS: Advair 250/50 Inhaler - 14 dose INH SCH ×2 (08:11→19:42)
--- NOTE | 2017-01-07 09:28 | General Progress Note ---
Assessment/Plan Assessment/Plan ASSESSMENT: 1. COPD 2. History of paroxysmal atrial fibrillation. 3. Type 2 diabetes mellitus. 4. Dyspnea 5. Ischemic heart disease. 6. Status post coronary artery bypass stenting. 7. Hyperlipidemia. 8. History of right arm deep vein thrombosis. 9. History of polysubstance abuse. 10. History of superior vena caval syndrome. 11. History of a non-small cell lung cancer. PLAN care noted cardiology reviewed Advair as is respiratory care oxygen therapy if needed pulmonary montiel stable outpatient PFT recommended d/w patient impression, plan, and exam edited and reviewed in detail care discussed with RN Subjective Allergies: Coded Allergies: BRITTANI INHIBITORS (Unverified Allergy, Unknown, 03/19/15) Uncoded Allergies: BRITTANI (Allergy, Unknown, 03/18/15) Subjective comfortable at present no distress MD notes reviewed Objective Last 24 Hour Vital Signs Date Time Temp Pulse Resp B/P (MAP) Pulse Ox O2 Delivery O2 Flow Rate FiO2 01/07/17 08:02 96 122/74 01/07/17 07:52 Nasal Cannula 2.0 01/07/17 07:52 98 Nasal Cannula 2.0 01/07/17 07:51 100 16 98 Nasal Cannula 2.0 01/07/17 07:50 100 16 98 Nasal Cannula 2.0 01/07/17 07:46 97.5 96 18 122/74 96 Room Air 01/07/17 06:00 122/68 01/07/17 04:00 97.7 81 20 115/64 100 Room Air 01/07/17 04:00 105 01/07/17 00:00 97.7 83 22 117/67 98 Room Air 01/07/17 00:00 85 01/06/17 21:32 124/76 01/06/17 21:00 90 124/78 01/06/17 20:00 97.9 01/06/17 20:00 91 01/06/17 19:30 98 Nasal Cannula 2.0 01/06/17 19:30 90 20 98 Nasal Cannula 2.0 28 01/06/17 19:30 92 20 99 Nasal Cannula 2.0 28 01/06/17 19:30 Nasal Cannula 2.0 28 01/06/17 16:00 85 01/06/17 15:49 97.5 90 20 118/77 100 Room Air 01/06/17 14:52 118/77 01/06/17 12:00 82 01/06/17 11:50 97.5 84 18 108/69 98 Room Air Intake and Output 01/07/17 01/08/17 19:00 07:00 Intake Total 120 ml Balance 120 ml Intake Oral 120 ml # Voids 1 Laboratory Tests 01/07/17 06:30: Prothrombin Time 39.3H, Prothromb Time International Ratio 3.7H Height (Feet): 5 Height (Inches): 9.00 Weight (Pounds): 150 Objective WDWN NAD reduced breath sounds bilaterally without rhonchi or wheeze [id number] without MRG NABS nontender no HSM no CCE nonfocal CATIA MCGARRY Jan 07, 2017 09:28
[2017-01-07 11:32] VITALS: BP 106/68
--- NOTE | 2017-01-07 12:03 | General Progress Note ---
Assessment/Plan Assessment/Plan Atypical CP -per Cards h/p PTE - on coumadin INR within range AODM stable To DW Pul. + Card Subjective Allergies: Coded Allergies: BRITTANI INHIBITORS (Unverified Allergy, Unknown, 03/19/15) Uncoded Allergies: BRITTANI (Allergy, Unknown, 03/18/15) Subjective Still having epigatric pain. Objective Last 24 Hour Vital Signs Date Time Temp Pulse Resp B/P (MAP) Pulse Ox O2 Delivery O2 Flow Rate FiO2 01/07/17 11:32 97.9 87 18 106/68 96 Room Air 01/07/17 08:02 96 122/74 01/07/17 08:00 94 01/07/17 07:52 Nasal Cannula 2.0 28 01/07/17 07:52 98 Nasal Cannula 2.0 28 01/07/17 07:51 100 16 98 Nasal Cannula 2.0 28 01/07/17 07:50 100 16 98 Nasal Cannula 2.0 28 01/07/17 07:46 97.5 96 18 122/74 96 Room Air 01/07/17 06:00 122/68 01/07/17 04:00 97.7 81 20 115/64 100 Room Air 01/07/17 04:00 105 01/07/17 00:00 97.7 83 22 117/67 98 Room Air 01/07/17 00:00 85 01/06/17 21:32 124/76 01/06/17 21:00 90 124/78 01/06/17 20:00 97.9 01/06/17 20:00 91 01/06/17 19:30 98 Nasal Cannula 2.0 28 01/06/17 19:30 90 20 98 Nasal Cannula 2.0 28 01/06/17 19:30 92 20 99 Nasal Cannula 2.0 28 01/06/17 19:30 Nasal Cannula 2.0 28 01/06/17 16:00 85 01/06/17 15:49 97.5 90 20 118/77 100 Room Air 01/06/17 14:52 118/77 Intake and Output 01/07/17 01/08/17 19:00 07:00 Intake Total 120 ml Balance 120 ml Intake Oral 120 ml # Voids 1 Laboratory Tests 01/07/17 06:30: Prothrombin Time 39.3H, Prothromb Time International Ratio 3.7H Height (Feet): 5 Height (Inches): 9.00 Weight (Pounds): 150 Objective Obese Cv RR Lungs CTA Abd SNT. BS + E No CCE CHERYL RABAGO Jan 07, 2017 12:02
--- NOTE | 2017-01-07 15:21 | Cardiac Electrophysiology PN ---
Assessment/Plan Assessment/Plan 1. Prersyncope. No SC. ? etiology.Dehydration? 2. Coronary artery disease with S/P Drug-eluting stent. Continue with Lipitor, Plavix, aspirin and Coreg 12.5 bid.No chest pain. 3. Paroxysmal atrial fibrillation in sinus rhythm on Coreg and Coumadin per Rx. 4. Hypertension on hydralazine 100 mg three times daily,Coreg 12.5 bid and HCTZ 5. Hyperlipidemia on Lipitor. 6. Cardiomyopathy with EF 45%. 7. Small cell lung cancer, status post radiation therapy and chemotherapy. 8. History of deep venous thrombosis. Continue Coumadin per pharmacy. INR 3.7 today 9. History of superior vena caval syndrome. DW RN Subjective Subjective No chest pain or SOB.No arrhythmias on tele. INR still high and Coumadin on hold. Objective Last 24 Hour Vital Signs Date Time Temp Pulse Resp B/P (MAP) Pulse Ox O2 Delivery O2 Flow Rate FiO2 01/07/17 13:20 106/68 01/07/17 12:00 89 01/07/17 11:32 97.9 87 18 106/68 96 Room Air 01/07/17 08:02 96 122/74 01/07/17 08:00 94 01/07/17 07:52 Nasal Cannula 2.0 28 01/07/17 07:52 98 Nasal Cannula 2.0 01/07/17 07:51 100 16 98 Nasal Cannula 2.0 01/07/17 07:50 100 16 98 Nasal Cannula 2.0 01/07/17 07:46 97.5 96 18 122/74 96 Room Air 01/07/17 06:00 122/68 01/07/17 04:00 97.7 81 20 115/64 100 Room Air 01/07/17 04:00 105 01/07/17 00:00 97.7 83 22 117/67 98 Room Air 01/07/17 00:00 85 01/06/17 21:32 124/76 01/06/17 21:00 90 124/78 01/06/17 20:00 97.9 01/06/17 20:00 91 01/06/17 19:30 98 Nasal Cannula 2.0 28 01/06/17 19:30 90 20 98 Nasal Cannula 2.0 28 01/06/17 19:30 92 20 99 Nasal Cannula 2.0 28 01/06/17 19:30 Nasal Cannula 2.0 28 01/06/17 16:00 85 01/06/17 15:49 97.5 90 20 118/77 100 Room Air Intake and Output 01/07/17 01/08/17 19:00 07:00 Intake Total 360 ml Balance 360 ml Intake Oral 360 ml # Voids 2 Laboratory Tests Test 01/07/17 06:30 Prothrombin Time 39.3 SEC (9.30-11.50) H Prothromb Time International Ratio 3.7 (0.9-1.1) H Objective HEAD AND NECK: Mild JVD LUNGS: Clear. CARDIOVASCULAR: Regular S1 and S2 with no gallop or murmur. ABDOMEN: Soft. EXTREMITIES: No pitting edema. DARNELL RICK Jan 07, 2017 15:21
--- NOTE | 2017-01-07 15:45 | Cardiology Report ---
APPROVED REPORT EKG Measurement Heart [id number] Normal sinus rhythm Anteroseptal infarct, age undetermined Abnormal ECG
[2017-01-07 15:48] VITALS: BP 106/75
[2017-01-07 19:58] VITALS: BP 121/76
[2017-01-08] VITALS: BP 135/70
[2017-01-08 03:52] VITALS: BP 127/81
[2017-01-08] MEDS: GlipiZIDE 5mg tab ORAL SCH (06:37)
[2017-01-08] MEDS: HydrALAZINE 50mg tab ORAL SCH (06:37)
[2017-01-08 06:53] LABS: INR 2.2 (0.9-1.1); PROTHROMBIN TIME 23.1 SEC (9.30-11.50)
[2017-01-08] MEDS: Norco 10mg/325mg tab ORAL PRN (06:56)
--- NOTE | 2017-01-08 08:00 | Consultation ---
DATE OF CONSULTATION: 01/07/2017 NOTE: POOR AUDIO QUALITY HEMATOLOGY/ONCOLOGY CONSULTATION CONSULTING PHYSICIAN: Anurag Salguero M.D. REQUESTING PHYSICIAN: Albino Otero M.D. REASON FOR CONSULTATION: Evaluation of non-small cell lung cancer, getting radiation. IDENTIFICATION DATA: Dear Dr. Harsh Maher and Dr. Otero, The patient is a pleasant 66-year-old male, who I follow in the Oncology clinic. He has a past medical history significant for non-small cell lung cancer diagnosed [facility], has been getting chemotherapy as well as radiation, most recent chemotherapy was about six days ago, received chemotherapy with Dr. Jona Salguero, after which improved and has been doing better and at this time has received radiation at [facility] and at this time presents with shortness of breath and chest pain. Evaluated by Cardiology and Pulmonary teams, noticed to have paroxysmal atrial fibrillation, on Coumadin DVT Coumadin. PAST MEDICAL HISTORY: History of paroxysmal atrial fibrillation, type 2 diabetes mellitus, hypertensive cardiovascular disease, ischemic heart disease, status post coronary artery bypass stenting, hyperlipidemia, history of right arm deep vein thrombosis, history of polysubstance abuse, history of superior vena cava syndrome, history of a non-small cell lung cancer, and chronic obstructive pulmonary disease. MEDICATIONS: Multiple medications including hydralazine, allopurinol, hydrochlorothiazide, Brilinta, Coumadin, glipizide, baby aspirin, Lipitor , Nitrostat, and . ALLERGIES: BRITTANI inhibitors. SOCIAL HISTORY: The patient lives at home. HABITS: Cigarette smoker. No illicit drug use. FAMILY HISTORY: Unremarkable. REVIEW OF SYSTEMS: Reviewed, as per history of present illness. PHYSICAL EXAMINATION: GENERAL: The patient is in no acute distress. VITAL SIGNS: Blood pressure 129/73, pulse 80, respiratory rate 12, and O2 saturation 99% on room air. PULMONARY: Decreased breath sounds. No crackles noted. . CARDIOVASCULAR: Regular rate. No S3 or S4. GASTROINTESTINAL: Abdomen is soft, nontender, and nondistended. EXTREMITIES: No cyanosis, clubbing, or edema. LABORATORY DATA: Hemoglobin 10.4, hematocrit 30. Creatinine 1.4. ASSESSMENT AND PLAN: 1. Non-small cell lung cancer, getting chemotherapy in the outpatient clinic as well as radiation at [facility]. 2. Pancytopenia, which has likely developed. The patient is status post chemotherapy now with suppression. 3. Right arm deep vein thrombosis, on Coumadin. 4. History of superior vena cava syndrome, improved with chemotherapy. Continue his Coumadin at this time. 5. Hypertensive heart disease, being seen by Cardiology service. 6. Ischemic heart disease, status post stent. 7. Polysubstance abuse. 8. Continue to closely monitor. Anurag Salguero M.D. DR: KAYLI JOB#: [id number] CC:
[2017-01-08 08:06] VITALS: BP 109/62
--- NOTE | 2017-01-08 08:34 | General Progress Note ---
Assessment/Plan Assessment/Plan Atypical CP -per Cards was ruled out. No further w/u indicated. h/p PTE - on coumadin INR within range AODM stable DW Pul. + Card DC home Subjective Allergies: Coded Allergies: BRITTANI INHIBITORS (Unverified Allergy, Unknown, 03/19/15) Uncoded Allergies: BRITATNI (Allergy, Unknown, 03/18/15) Subjective Denies pain or SOB. Objective Last 24 Hour Vital Signs Date Time Temp Pulse Resp B/P (MAP) Pulse Ox O2 Delivery O2 Flow Rate FiO2 01/08/17 08:06 97.9 89 21 109/62 97 Room Air 01/08/17 07:44 Nasal Cannula 2.0 28 01/08/17 07:44 96 Nasal Cannula 2.0 01/08/17 06:37 132/83 01/08/17 04:00 88 01/08/17 03:52 98.8 94 21 127/81 97 Nasal Cannula 2.0 01/08/17 00:00 96 01/08/17 00:00 98.6 99 20 135/70 97 Nasal Cannula 01/07/17 21:34 114/67 01/07/17 21:28 88 114/67 01/07/17 20:00 102 01/07/17 19:58 98.1 98 21 121/76 Nasal Cannula 01/07/17 19:45 91 18 94 Room Air 01/07/17 19:45 Room Air 01/07/17 19:44 94 Room Air 21 01/07/17 19:43 91 18 97 Room Air 2.0 28 01/07/17 19:43 91 18 93 Room Air 01/07/17 16:00 91 01/07/17 15:48 97.5 96 18 106/75 97 Room Air 01/07/17 13:20 106/68 01/07/17 12:00 89 01/07/17 11:32 97.9 87 18 106/68 96 Room Air Laboratory Tests 01/08/17 05:55: Prothrombin Time 23.1H, Prothromb Time International Ratio 2.2H Height (Feet): 5 Height (Inches): 9.00 Weight (Pounds): 150 Objective Obese Cv RR Lungs CTA Abd SNT. BS + E No CCE CHERYL RABAGO Jan 08, 2017 08:34
[2017-01-08] MEDS ORDERED: CARAFATE1 G1 ORAL (08:38)
[2017-01-08] MEDS: Advair 250/50 Inhaler - 14 dose INH SCH (09:23)
[2017-01-08] MEDS: Aspirin Baby 81mg ORAL SCH (09:49)
[2017-01-08] MEDS: Allopurinol 100mg Tab ORAL SCH (09:49)
[2017-01-08] MEDS: Carvedilol 12.5mg tab ORAL SCH (09:49)
[2017-01-08] MEDS: Sucralfate 1gm tab ORAL SCH (09:49)
[2017-01-08] MEDS ORDERED: D5NS 1000ml IV ONE (12:04)
[2017-01-08 12:15] VITALS: BP 121/72
--- NOTE | 2017-01-08 13:40 | Diagnostic Imaging Report ---
APPROVED REPORT CPT Code: 17196 Vascular Symptoms Dizziness and Vertigo Comments: Hx CAD, x4 CA stents. Hx CHF, A-fib, CVA. Doppler Spectral Velocity Analysis RightLeft dICA91/31 cm/sdICA73/28 cm/s yUGM016/27 cm/smICA93/31 cm/s gEYI953/9 cm/etQBE041/31 cm/s ECA87/13 cm/sECA76/12 cm/s vVZN116/21 cm/sdCCA94/22 cm/s mCCA96/22 cm/smCCA97/26 cm/s pCCA62/13 cm/vvHQW998/25 cm/s Vert.68/22 cm/sVert.42/14 cm/s Right ICA/CCA ratio1.1Left ICA/CCA ratio1.1 RIGHT SIDE: CCA/BULB - Imaging reveals irregular, minimal plaque in the carotid artery external carotid arteries. VERTEBRAL - The vertebral artery is patent, without evidence of stenosis or steal. LEFT SIDE: CCA/BULB - Imaging reveals irregular, mild plaque in the carotid artery and external carotid arteries. VERTEBRAL - The vertebral artery is patent, without evidence of stenosis or steal.
--- NOTE | 2017-01-08 16:47 | General Progress Note ---
Assessment/Plan Assessment/Plan ASSESSMENT: 1. COPD 2. History of paroxysmal atrial fibrillation. 3. Type 2 diabetes mellitus. 4. Dyspnea 5. Ischemic heart disease. 6. Status post coronary artery bypass stenting. 7. Hyperlipidemia. 8. History of right arm deep vein thrombosis. 9. History of polysubstance abuse. 10. History of superior vena caval syndrome. 11. History of a non-small cell lung cancer. PLAN care noted cardiology reviewed Advair as is for now respiratory care oxygen therapy if needed pulmonary montiel stable outpatient PFT and allergy testing recommended d/w patient will have patient follow up impression, plan, and exam edited and reviewed in detail care discussed with RN Subjective Allergies: Coded Allergies: BRITTANI INHIBITORS (Unverified Allergy, Unknown, 03/19/15) Uncoded Allergies: BRITTANI (Allergy, Unknown, 03/18/15) Subjective comfortable at present no distress and plans to be discharged MD notes reviewed Objective Last 24 Hour Vital Signs Date Time Temp Pulse Resp B/P (MAP) Pulse Ox O2 Delivery O2 Flow Rate FiO2 01/08/17 12:15 97.6 88 21 121/72 97 Nasal Cannula 2.0 01/08/17 09:49 95 137/93 01/08/17 09:25 99 01/08/17 09:24 93 18 96 Nasal Cannula 2.0 28 01/08/17 09:23 92 16 96 Nasal Cannula 2.0 28 01/08/17 08:06 97.9 89 21 109/62 97 Room Air 01/08/17 07:44 Nasal Cannula 2.0 28 01/08/17 07:44 96 Nasal Cannula 2.0 28 01/08/17 06:37 132/83 01/08/17 04:00 88 01/08/17 03:52 98.8 94 21 127/81 97 Nasal Cannula 2.0 01/08/17 00:00 96 01/08/17 00:00 98.6 99 20 135/70 97 Nasal Cannula 01/07/17 21:34 114/67 01/07/17 21:28 88 114/67 01/07/17 20:00 102 01/07/17 19:58 98.1 98 21 121/76 Nasal Cannula 01/07/17 19:45 91 18 94 Room Air 21 01/07/17 19:45 Room Air 01/07/17 19:44 94 Room Air 21 01/07/17 19:43 91 18 97 Room Air 2.0 28 01/07/17 19:43 91 18 93 Room Air 21 Intake and Output 01/08/17 01/09/17 19:00 07:00 Intake Total 240 ml Balance 240 ml Intake Oral 240 ml Laboratory Tests 01/08/17 05:55: Prothrombin Time 23.1H, Prothromb Time International Ratio 2.2H Height (Feet): 5 Height (Inches): 9.00 Weight (Pounds): 150 Objective WDWN NAD reduced breath sounds bilaterally without rhonchi or wheeze [id number] without MRG NABS nontender no HSM no CCE nonfocal CATIA MCGARRY Jan 08, 2017 16:47
--- NOTE | 2017-01-08 19:04 | General Progress Note ---
Assessment/Plan Assessment/Plan 1. Non-small cell lung cancer, getting chemotherapy in the outpatient clinic as well as radiation at [facility]. 2. Pancytopenia, which has likely developed. The patient is status post chemotherapy now with suppression. 3. Right arm deep vein thrombosis, on Coumadin. --> on coumadin, monitor inr, goal between 2-3 4. History of superior vena cava syndrome, improved with chemotherapy. 5. Hypertensive heart disease, being seen by Cardiology service. 6. Ischemic heart disease, status post stent. 7. Polysubstance abuse. 8. Continue to closely monitor. Subjective Constitutional: Reports: no symptoms HEENT: Reports: no symptoms Cardiovascular: Reports: no symptoms Respiratory: Reports: no symptoms Gastrointestinal/Abdominal: Reports: no symptoms Genitourinary: Reports: no symptoms Neurologic/Psychiatric: Reports: no symptoms Endocrine: Reports: no symptoms Hematologic/Lymphatic: Reports: anemia Allergies: Coded Allergies: BRITTANI INHIBITORS (Unverified Allergy, Unknown, 03/19/15) Uncoded Allergies: BRITTANI (Allergy, Unknown, 03/18/15) Subjective resting, in bed. will follow up in office tomorrow Objective Last 24 Hour Vital Signs Date Time Temp Pulse Resp B/P (MAP) Pulse Ox O2 Delivery O2 Flow Rate FiO2 01/08/17 12:15 97.6 88 21 121/72 97 Nasal Cannula 2.0 01/08/17 09:49 95 137/93 01/08/17 09:25 99 01/08/17 09:24 93 18 96 Nasal Cannula 2.0 01/08/17 09:23 92 16 96 Nasal Cannula 2.0 01/08/17 08:06 97.9 89 21 109/62 97 Room Air 01/08/17 07:44 Nasal Cannula 2.0 01/08/17 07:44 96 Nasal Cannula 2.0 01/08/17 06:37 132/83 01/08/17 04:00 88 01/08/17 03:52 98.8 94 21 127/81 97 Nasal Cannula 2.0 01/08/17 00:00 96 01/08/17 00:00 98.6 99 20 135/70 97 Nasal Cannula 01/07/17 21:34 114/67 01/07/17 21:28 88 114/67 01/07/17 20:00 102 01/07/17 19:58 98.1 98 21 121/76 Nasal Cannula 01/07/17 19:45 91 18 94 Room Air 21 01/07/17 19:45 Room Air 01/07/17 19:44 94 Room Air 21 01/07/17 19:43 91 18 97 Room Air 2.0 28 01/07/17 19:43 91 18 93 Room Air 21 Intake and Output 01/08/17 01/09/17 19:00 07:00 Intake Total 240 ml Balance 240 ml Intake Oral 240 ml Laboratory Tests 01/08/17 05:55: Prothrombin Time 23.1H, Prothromb Time International Ratio 2.2H Height (Feet): 5 Height (Inches): 9.00 Weight (Pounds): 150 General Appearance: no apparent distress EENT: normal ENT inspection Neck: normal alignment Cardiovascular: regular rhythm Extremities: non-tender Anurag Salguero Jan 08, 2017 19:04
--- NOTE | 2017-01-08 21:19 | Cardiology Report ---
APPROVED REPORT EXAM: Two-dimensional and M-mode echocardiogram with Doppler and color Doppler. INDICATION Congestive Heart Failure M-Mode DIMENSIONS IVSd1.5 (0.7-1.1cm)Left Atrium (MM)4.0 (1.6-4.0cm) LVDd4.3 (3.5-5.6cm)Aortic Root2.6 (2.0-3.7cm) PWd1.0 (0.7-1.1cm)Aortic Cusp Exc.1.6 (1.5-2.0cm) LVDs2.1 (2.5-4.0cm) PWs1.7 cm Normal left ventricular chamber size, systolic function and wall motion. Left ventricular ejection fraction estimated to be 55 %. Mild left ventricular hypertrophy. Anterior Echo-free space, may be due to pericardial fat or effusion. All other cardiac chamber sizes are within normal limits. Mild focal aortic valve sclerosis with adequate cusp excursion. Mildly thickened mitral valve leaflets with normal excursion. Mild mitral annulus and aortic root calcification. Pulmonic valve not well visualized. Normal tricuspid valve structure. IVC dilated at 1.8 cm with physiologic collapse. A color flow and spectral Doppler study was performed and revealed: Moderate aortic regurgitation. Trace mitral regurgitation. Mitral diastolic velocities suggest reduced left ventricular relaxation (Grade I). Trace tricuspid regurgitation. Tricuspid systolic velocities suggests peak right ventricular systolic pressure of 18 mmHg. Trace pulmonic regurgitation present.
--- NOTE | 2017-01-09 13:10 | Discharge Summary ---
Discharge Summary Hospital Course Date of Admission Jan 05, 2017 at 10:15 Date of Discharge Jan 08, 2017 at 12:05 Admitting Diagnosis DYSPNEA HPI Ricardo Beckwith is a 66 year old male who was admitted on Jan 05, 2017 at 10:15 for Dyspnea Hospital Course [id number] Discharge Discharge Disposition Patient was discharged to Home (01) Discharge Diagnoses: Patricia Mcelroy NP Jan 09, 2017 13:10
--- NOTE | 2017-01-10 07:00 | Discharge Summary 2 SIG ---
DATE OF ADMISSION: 01/05/2017 DATE OF DISCHARGE: 01/08/2017 CONSULTANTS: 1. Quinton Bradley M.D. 2. Anurag Salguero M.D. 3. Albino Otero M.D. BRIEF HOSPITAL COURSE: The patient is a 66-year-old male, who has a history of paroxysmal atrial fibrillation, type 2 diabetes, hypertensive cardiovascular disease, ischemic heart disease, status post coronary artery bypass graft and stenting, hyperlipidemia, history of right arm DVT, polysubstance abuse, superior vena cava syndrome, and non-small cell lung CA with COPD, presented to ED complaining of shortness of breath and chest pain. On evaluation at ED, troponin was negative. EKG was in normal sinus rhythm and chest x-ray was unchanged. EKG showed normal sinus rhythm with no evidence of ischemia. Due to his risk factors for coronary artery disease, the patient was admitted to telemetry for acute coronary syndrome and was seen by Dr. Bradley. The patient had echocardiogram with ejection fraction of 55%. He has paroxysmal atrial fibrillation, however, currently sinus on the monitor. The patient was continued on Coumadin. Hypertension was treated with Cardizem, hydrochlorothiazide, and hydralazine three times a day. He was also followed by Dr. Otero and was given respiratory care and oxygen therapy. Continue on Advair and was recommended to undergo pulmonary function tests as outpatient. He has lung CA and is getting radiation and chemotherapy. He has pancytopenia secondary to chemotherapy and suppression. He was continued on Lipitor, Plavix, aspirin, and Coreg. The patient has presyncopal episode, etiology possible dehydration. There was no evidence of myocardial infarction. Troponins were negative. He was eventually discharged home. FINAL DIAGNOSES: 1. Presyncope, possibly secondary to dehydration. 2. Coronary artery disease, status post drug-eluting stent. 3. Paroxysmal atrial fibrillation. 4. Hypertension. 5. Hyperlipidemia. 6. Cardiomyopathy. 7. Small cell lung cancer. 8. History of deep vein thrombosis on Coumadin. 9. History of superior vena cava syndrome. 10. Type 2 diabetes mellitus. 11. Chronic obstructive pulmonary disease. 12. Hyperlipidemia. 13. Pancytopenia, status post chemotherapy and immunosuppression. 14. Polysubstance abuse. DISPOSITION: The patient was discharged home. DISCHARGE MEDICATIONS: Refer to medication list. FOLLOWUP: The patient was advised to follow up with PMD in a week. Harsh Maher M.D. I have been assigned to dictate discharge summary on this account and I was not involved in the patient's management. Patricia Mcelroy N.P. DR: MARGUERITE JOB#: [id number] CC:
== END 2017-01-08 12:05 | disposition home or self-care (01) | DRG 201 ==
LOC: EDBD 09:10 → EMR 09:52 → 2E 10:15 → EDBEDREQ 13:27
DX: I48.0 Paroxysmal atrial fibrillation (principal); D61.810 Antineoplastic chemotherapy induced pancytopenia; C34.90 Malignant neoplasm of unspecified part of unspecified bronchus or lung; I11.9 Hypertensive heart disease without heart failure; J44.9 Chronic obstructive pulmonary disease, unspecified; I50.9 Heart failure, unspecified; E86.0 Dehydration; Z79.01 Long term (current) use of anticoagulants; I25.10 Atherosclerotic heart disease of native coronary artery without angina pectoris; Z95.5 Presence of coronary angioplasty implant and graft; Z86.718 Personal history of other venous thrombosis and embolism; E11.9 Type 2 diabetes mellitus without complications; E78.5 Hyperlipidemia, unspecified; F19.21 Other psychoactive substance dependence, in remission; I25.5 Ischemic cardiomyopathy; Z79.02 Long term (current) use of antithrombotics/antiplatelets; Z87.891 Personal history of nicotine dependence; F14.21 Cocaine dependence, in remission; R07.89 Other chest pain; R55 Syncope and collapse
CPT/HCPCS: 36415; 71010; 80048; 80053; 80300; 82550; 82553; 82962; 83880; 84439; 84443; 84484; 85025; 85610; 93005; 93306; 93880; 94640; 94760

== ENCOUNTER 2017-01-24 13:43 | Inpatient (IN) | payer MEDICARE, MEDICAID ==
[~2017-01-24] VITALS: Ht 182.9 cm; Wt 67.1 kg
[2017-01-24 13:43] VITALS: BP 100/47
[~2017-01-24 13:43] MED LIST changes: +CARAFATE1 G1 ORAL; +NITROSTAT0.4 M1 SL; +NORCO 10/3251 EA ORAL
[2017-01-24] MEDS ORDERED: Morphine Sulfate 2mg/ml Inj IVP ONE (13:45)
[2017-01-24] MEDS ORDERED: Nitroglycerin 2% oint pkt TOPIC ONE (13:45)
--- NOTE | 2017-01-24 14:21 | Emergency Room Report ---
History of Present Illness General Chief Complaint: Chest Pain Source: Patient, EMS Present Illness HPI The patient presents with substernal left-sided chest pain. He's had this pain before. He's had stents placed before this feels like that type of pain. Paramedics were able to given aspirin and one nitroglycerin. His blood pressure was low. The pain is slightly better - it went from 9/10 to 8/10 with treatment. No diaphoresis, nausea. Some dyspnea with this. Patient recently admitted for CHF. Some periorbital swelling. The patient has a history of BRITTANI inhibitor allergy. No fevers, cough, NVD, dysuria, calf pain, rashes. Diabetic. States glucose not problem. Walks with walker. Allergies: Coded Allergies: BRITTANI INHIBITORS (Unverified Allergy, Unknown, 03/19/15) Patient History Past Medical History: see triage record, old chart reviewed Past Surgical History: PTCA Social History: Denies: smoking Social History Narrative at home Reviewed Nursing Documentation: PMH: Agreed, PSxH: Agreed Nursing Documentation-PMH Past Medical History: No History, Except For Hx Cardiac Problems: Yes - MULTIPLE STENTS Hx Hypertension: Yes Hx COPD: Yes Hx Diabetes: Yes - Type II Hx Cancer: Yes Hx Gastrointestinal Problems: No Hx Neurological Problems: Yes Hx Cerebrovascular Accident: Yes - 06/2016 Review of Systems All Other Systems: negative except mentioned in HPI Physical Exam Vital Signs Date Time Temp Pulse Resp B/P (MAP) Pulse Ox O2 Delivery O2 Flow Rate FiO2 01/24/17 13:37 98.2 99 20 100/47 96 01/24/17 13:43 Room Air 01/24/17 13:45 2.0 Sp02 EP Interpretation: reviewed, normal General Appearance: well appearing, no apparent distress, GCS 15 Head: normocephalic Eyes: bilateral eye normal inspection, bilateral eye PERRL, bilateral eye other - some periorbital edema ENT: moist mucus membranes Neck: supple Respiratory: lungs clear, normal breath sounds Cardiovascular #1: regular rate, rhythm Cardiovascular #2: 2+ radial (R) Gastrointestinal: normal inspection, normal bowel sounds, non tender, no mass, non-distended Musculoskeletal: back normal, gait/station normal, normal range of motion, no calf tenderness, Adama's Sign negative Neurologic: alert, oriented x3, motor strength/tone normal, DTRs symmetric, sensory intact Psychiatric: depressed affect Skin: normal inspection, warm/dry Medical Decision Making Diagnostic Impression: Primary Impression: Chest pain Qualified Codes: R07.89 - Other chest pain Additional Impressions: Renal insufficiency Leukocytosis Qualified Codes: D72.829 - Elevated white blood cell count, unspecified ER Course Patient with prior stents with chest pain which feels like when he had NH. DDx : AMI, ACS, costochondritis, PE, CHF, GERD. Emergent evaluation to exclude AMI with EKG, CXR and labs. Exam against PE. Treated in field with aspirin and nitrates. Will continue nitrates. EKG without acute injury. Labs significant for normal troponin and elevated INR. CXR without CHF. Renal function is worsened from all prior determinations. No indication for dialysis, but needs to be followed and evaluated. Leukocytosis with unclear source or cause. Patient still with pain. Morphine given. Improved with treatment. Patient needs continued cardiac observation and repeated troponin determinations. Admitted telemetry Dr. Maher. Discussed with Dr. Del Rosario. Laboratory Tests Test 01/24/17 14:00 01/24/17 14:10 01/24/17 18:15 01/24/17 18:30 Urine Color Pale yellow Pale yellow Urine Appearance Clear Clear Urine pH 6 (4.5-8.0) 5 (4.5-8.0) Urine Specific [place] 1.010 (1.005-1.035) 1.010 (1.005-1.035) Urine Protein Negative (NEGATIVE) Negative (NEGATIVE) Urine Glucose (UA) Negative (NEGATIVE) Negative (NEGATIVE) Urine Ketones Negative (NEGATIVE) Negative (NEGATIVE) Urine Occult Blood Negative (NEGATIVE) Negative (NEGATIVE) Urine Nitrite Negative (NEGATIVE) Negative (NEGATIVE) Urine Bilirubin Negative (NEGATIVE) Negative (NEGATIVE) Urine Urobilinogen Normal MG/DL (0.0-1.0) Normal MG/DL (0.0-1.0) Urine Leukocyte Esterase Negative (NEGATIVE) Negative (NEGATIVE) Urine Opiates Screen Negative (NEGATIVE) Urine Barbiturates Screen Negative (NEGATIVE) Phencyclidine (PCP) Screen Negative (NEGATIVE) Urine Amphetamines Screen Negative (NEGATIVE) Urine Benzodiazepines Screen Positive (NEGATIVE) H Urine Cocaine Screen Negative (NEGATIVE) Urine Marijuana (THC) Screen Negative (NEGATIVE) White Blood Count 14.2 K/UL (4.8-10.8) H Red Blood Count 2.86 M/UL (4.70-6.10) L Hemoglobin 9.6 G/DL (14.2-18.0) L Hematocrit 29.0 % (42.0-52.0) L Mean Corpuscular Volume 101 FL (80-99) H Mean Corpuscular Hemoglobin 33.4 PG (27.0-31.0) H Mean Corpuscular Hemoglobin Concent 33.0 G/DL (32.0-36.0) Red Cell Distribution Width 16.7 % (11.6-14.8) H Platelet Count 150 K/UL (150-450) Mean Platelet Volume 6.5 FL (6.5-10.1) Neutrophils (%) (Auto) % (45.0-75.0) Lymphocytes (%) (Auto) % (20.0-45.0) Monocytes (%) (Auto) % (1.0-10.0) Eosinophils (%) (Auto) % (0.0-3.0) Basophils (%) (Auto) % (0.0-2.0) Differential Total Cells Counted 100 Neutrophils % (Manual) 82 % (45-75) H Lymphocytes % (Manual) 9 % (20-45) L Monocytes % (Manual) 4 % (1-10) Eosinophils % (Manual) 0 % (0-3) Basophils % (Manual) 0 % (0-2) Band Neutrophils 5 % (0-8) Platelet Estimate Adequate Platelet Morphology Normal Hypochromasia 1+ Anisocytosis 1+ Macrocytosis 1+ Prothrombin Time 39.2 SEC (9.30-11.50) H Prothrombin Time INR 3.7 (0.9-1.1) H PTT 36 SEC (23-33) H Sodium Level 142 mEQ/L (135-145) Potassium Level 3.3 mEQ/L (3.4-4.9) L Chloride Level 104 mEQ/L (98-107) Carbon Dioxide Level 24 mEQ/L (20-30) Anion Gap 14 (5-15) Blood Urea Nitrogen 30 mg/dL (7-23) H Creatinine 1.7 mg/dL (0.7-1.2) H Estimate Glomerular Filtration Rate 49.1 mL/min (>60) Glucose Level 95 mg/dL (74-106) Calcium Level 9.0 mg/dL (8.6-10.2) Total Bilirubin 0.9 mg/dL (0.0-1.2) Aspartate Amino Transferase (AST) 20 U/L (5-40) Alanine Aminotransferase (ALT) 19 U/L (3-41) Alkaline Phosphatase 60 U/L (40-129) Total Creatine Kinase 133 U/L (38-174) Troponin I < 0.30 ng/mL (<=0.30) < 0.30 ng/mL (<=0.30) Pro-B-Type Natriuretic Peptide 351 pg/mL (0-125) H Total Protein 6.3 g/dL (6.6-8.7) L Albumin 3.7 g/dL (3.5-5.2) Globulin 2.6 g/dL Albumin/Globulin Ratio 1.4 (1.0-2.7) EKG Diagnostic Results Rate: normal Rhythm: NSR ST Segments: no acute changes - Nonspecific ST-T wave changes ASA given to the pt in ED: Yes Rhythm Strip Diag. Results EP Interpretation: yes Rhythm: NSR, no PVC's, no ectopy Chest X-Ray Diagnostic Results Chest X-Ray Diagnostic Results : Chest X-Ray Ordered: Yes # of Views/Limited/Complete: 1 View Indication: Chest Pain EP Interpretation: Yes Interpretation: no consolidation, no effusion, no pneumothorax, no acute cardiopulmonary disease Impression: No acute disease Electronically Signed by: Electronically signed by Moe Rajan MD Last Vital Signs Date Time Temp Pulse Resp B/P (MAP) Pulse Ox O2 Delivery O2 Flow Rate FiO2 01/24/17 23:49 98.2 83 21 110/60 96 Nasal Cannula 2.0 Status: improved Disposition: ADMITTED INPATIENT Condition: Serious Moe Rajan M.D. Jan 24, 2017 14:21
[2017-01-24 14:51] LABS: MEAN CORPUSCULAR HEMOGLOBIN 33.4 PG (27.0-31.0); MEAN CORPUSCULAR VOLUME 101 FL (80-99); MEAN PLATELET VOLUME 6.5 FL (6.5-10.1); PLATELET COUNT 150 K/UL (150-450); RED BLOOD COUNT 2.86 M/UL (4.70-6.10); RED CELL DISTRIBUTION WIDTH 16.7 % (11.6-14.8); WHITE BLOOD COUNT 14.2 K/UL (4.8-10.8)
[2017-01-24 14:57] LABS: APPEARANCE,URINE CLEAR; KETONES,URINE NEGATIVE (NEGATIVE); LEUKOCYTE ESTERASE ,URINE NEGATIVE (NEGATIVE); NITRITE,URINE NEGATIVE (NEGATIVE); PH,URINE 6 (4.5-8.0); PROTEIN,URINE NEGATIVE (NEGATIVE); UROBILINOGEN,URINE NORMAL MG/DL (0.0-1.0)
[2017-01-24 15:09] LABS: ALANINE AMINOTRANSFERASE 19 U/L (3-41); ALBUMIN/GLOBULIN RATIO 1.4 (1.0-2.7); ANION GAP 14 (5-15); ASPARTATE AMINO TRANSFERASE 20 U/L (5-40); CARBON DIOXIDE 24 mEQ/L (20-30); CHLORIDE 104 mEQ/L (98-107); CREATININE 1.7 mg/dL (0.7-1.2); GLOMERULAR FILTRATION RATE 49.1 mL/min (>60); HEMOLYSIS 24; POTASSIUM 3.3 mEQ/L (3.4-4.9); SODIUM 142 mEQ/L (135-145); TOTAL PROTEIN 6.3 g/dL (6.6-8.7)
[2017-01-24 15:10] LABS: TROPONIN I < 0.30 ng/mL (<=0.30)
[2017-01-24 15:14] LABS: INR 3.7 (0.9-1.1); PROTHROMBIN TIME 39.2 SEC (9.30-11.50)
[2017-01-24 15:16] VITALS: BP 116/74
[2017-01-24 15:58] LABS: ANISOCYTOSIS 1+; BAND NEUTROPHILS % (MANUAL) 5 % (0-8); BASOPHILS % (MANUAL) 0 % (0-2); EOSINOPHILS % (MANUAL) 0 % (0-3); HYPOCHROMASIA 1+; LYMPHOCYTES % (MANUAL) 9 % (20-45); MACROCYTES 1+; NEUTROPHILS % (MANUAL) 82 % (45-75); PLATELET ESTIMATE ADEQUATE; PLATELET MORPHOLOGY NORMAL; TOTAL CELLS COUNTED 100
[2017-01-24 16:59] VITALS: BP 111/66
[2017-01-24 17:47] VITALS: BP 139/79
[2017-01-24] MEDS ORDERED: Nitroglycerin Subl 0.4mg tab (Bottle Of 25) SL PRN (18:00)
--- NOTE | 2017-01-24 18:02 | Cardiac Electrophysiology PN ---
Subjective Subjective 1. CP. R/O VT. Could be due to CAD on lung cancer 2. Coronary artery disease with S/P Drug-eluting stent. Continue with Lipitor, Plavix, aspirin and Coreg 12.5 bid 3. Paroxysmal atrial fibrillation in sinus rhythm on Coreg and Coumadin per Rx. 4. Hypertension on hydralazine 100 mg three times daily,Coreg 12.5 bid and HCTZ 5. Hyperlipidemia on Lipitor. 6. Cardiomyopathy with EF 45%. 7. Small cell lung cancer, status post radiation therapy and chemotherapy. 8. History of deep venous thrombosis. Continue Coumadin per pharmacy. 9. History of superior vena caval syndrome. Consult dictated [id number] Objective Last 24 Hour Vital Signs Date Time Temp Pulse Resp B/P (MAP) Pulse Ox O2 Delivery O2 Flow Rate FiO2 01/24/17 17:47 96.7 94 20 139/79 98 Nasal Cannula 2.0 01/24/17 17:15 98.2 91 19 111/66 98 Nasal Cannula 2.0 01/24/17 16:59 98.2 91 19 111/66 98 Nasal Cannula 2.0 01/24/17 15:16 98.2 94 20 116/74 98 Nasal Cannula 2.0 01/24/17 14:26 110/58 01/24/17 13:45 97 20 Nasal Cannula 2.0 01/24/17 13:43 98.2 96 20 100/47 96 Room Air 01/24/17 13:37 98.2 99 20 100/47 96 Laboratory Tests Test 01/24/17 14:00 01/24/17 14:10 Urine Color Pale yellow Urine Appearance Clear Urine pH 6 (4.5-8.0) Urine Specific [place] 1.010 (1.005-1.035) Urine Protein Negative (NEGATIVE) Urine Glucose (UA) Negative (NEGATIVE) Urine Ketones Negative (NEGATIVE) Urine Occult Blood Negative (NEGATIVE) Urine Nitrite Negative (NEGATIVE) Urine Bilirubin Negative (NEGATIVE) Urine Urobilinogen Normal MG/DL (0.0-1.0) Urine Leukocyte Esterase Negative (NEGATIVE) Urine Opiates Screen Negative (NEGATIVE) Urine Barbiturates Screen Negative (NEGATIVE) Phencyclidine (PCP) Screen Negative (NEGATIVE) Urine Amphetamines Screen Negative (NEGATIVE) Urine Benzodiazepines Screen Positive (NEGATIVE) H Urine Cocaine Screen Negative (NEGATIVE) Urine Marijuana (THC) Screen Negative (NEGATIVE) White Blood Count 14.2 K/UL (4.8-10.8) H Red Blood Count 2.86 M/UL (4.70-6.10) L Hemoglobin 9.6 G/DL (14.2-18.0) L Hematocrit 29.0 % (42.0-52.0) L Mean Corpuscular Volume 101 FL (80-99) H Mean Corpuscular Hemoglobin 33.4 PG (27.0-31.0) H Mean Corpuscular Hemoglobin Concent 33.0 G/DL (32.0-36.0) Red Cell Distribution Width 16.7 % (11.6-14.8) H Platelet Count 150 K/UL (150-450) Mean Platelet Volume 6.5 FL (6.5-10.1) Neutrophils (%) (Auto) % (45.0-75.0) Lymphocytes (%) (Auto) % (20.0-45.0) Monocytes (%) (Auto) % (1.0-10.0) Eosinophils (%) (Auto) % (0.0-3.0) Basophils (%) (Auto) % (0.0-2.0) Differential Total Cells Counted 100 Neutrophils % (Manual) 82 % (45-75) H Lymphocytes % (Manual) 9 % (20-45) L Monocytes % (Manual) 4 % (1-10) Eosinophils % (Manual) 0 % (0-3) Basophils % (Manual) 0 % (0-2) Band Neutrophils 5 % (0-8) Platelet Estimate Adequate Platelet Morphology Normal Hypochromasia 1+ Anisocytosis 1+ Macrocytosis 1+ Prothrombin Time 39.2 SEC (9.30-11.50) H Prothromb Time International Ratio 3.7 (0.9-1.1) H Activated Partial Thromboplast Time 36 SEC (23-33) H Sodium Level 142 mEQ/L (135-145) Potassium Level 3.3 mEQ/L (3.4-4.9) L Chloride Level 104 mEQ/L (98-107) Carbon Dioxide Level 24 mEQ/L (20-30) Anion Gap 14 (5-15) Blood Urea Nitrogen 30 mg/dL (7-23) H Creatinine 1.7 mg/dL (0.7-1.2) H Estimat Glomerular Filtration Rate 49.1 mL/min (>60) Glucose Level 95 mg/dL (74-106) Calcium Level 9.0 mg/dL (8.6-10.2) Total Bilirubin 0.9 mg/dL (0.0-1.2) Aspartate Amino Transf (AST/SGOT) 20 U/L (5-40) Alanine Aminotransferase (ALT/SGPT) 19 U/L (3-41) Alkaline Phosphatase 60 U/L (40-129) Total Creatine Kinase 133 U/L (38-174) Troponin I < 0.30 ng/mL (<=0.30) Pro-B-Type Natriuretic Peptide 351 pg/mL (0-125) H Total Protein 6.3 g/dL (6.6-8.7) L Albumin 3.7 g/dL (3.5-5.2) Globulin 2.6 g/dL Albumin/Globulin Ratio 1.4 (1.0-2.7) DARNELL RICK Jan 24, 2017 18:02
[2017-01-24] MEDS ORDERED: COUMADIN1 MG ORAL ×2 (18:58→18:59)
[2017-01-24 19:38] LABS: TROPONIN I < 0.30 ng/mL (<=0.30)
[2017-01-24 20:04] VITALS: BP 127/78
[2017-01-24] MEDS: Sucralfate 1gm tab ORAL SCH (20:23)
[2017-01-24] MEDS: Carvedilol 12.5mg tab ORAL SCH (20:23)
[2017-01-24] MEDS: Norco 5mg/325mg tab ORAL PRN (20:40)
[2017-01-24 20:54] LABS: APPEARANCE,URINE CLEAR; KETONES,URINE NEGATIVE (NEGATIVE); LEUKOCYTE ESTERASE ,URINE NEGATIVE (NEGATIVE); NITRITE,URINE NEGATIVE (NEGATIVE); PH,URINE 5 (4.5-8.0); PROTEIN,URINE NEGATIVE (NEGATIVE); UROBILINOGEN,URINE NORMAL MG/DL (0.0-1.0)
[2017-01-24] MEDS ORDERED: Carvedilol 12.5mg tab ORAL SCH (21:00)
[2017-01-24] MEDS: NovoLOG Insulin Flexpen SUBQ SCH (21:00)
[2017-01-24] MEDS: HydrALAZINE 50mg tab ORAL SCH (21:52)
[2017-01-24] MEDS ORDERED: HydrALAZINE 50mg tab ORAL SCH (22:00)
[2017-01-24 23:49] VITALS: BP 110/60
[2017-01-25] MEDS: Norco 5mg/325mg tab ORAL PRN ×3 (02:47→14:55)
[2017-01-25 03:40] VITALS: BP 109/66
--- NOTE | 2017-01-25 05:30 | Consultation ---
DATE OF CONSULTATION: 01/24/2017 CARDIOLOGY CONSULTATION CONSULTING PHYSICIAN: Quinton Bradley M.D. REFERRING PHYSICIAN: Harsh Maher M.D. REASON FOR CONSULTATION: Chest pain. HISTORY OF PRESENT ILLNESS: The patient is a very pleasant 66-year-old gentleman who I am quite familiar with from multiple previous hospitalizations. The patient has a history of hypertension, diabetes, and history of CVA in June 2016 as well as history of lymphoma, who is on radiation therapy and chemotherapy per Dr. Salguero, last chemotherapy yesterday. The patient presents with left-sided chest pain, seems like similar kind of pain. I gave the patient aspirin and nitroglycerin and was brought to the emergency room for further evaluation. Initial blood pressure was 100/47, pulse of 99, respirations of 20, and temperature 98.2. His EKG showed normal sinus rhythm with no acute ST-T wave abnormalities. The patient was admitted after evaluation by Dr. Rajan in the emergency room, and Cardiology consultation was requested for further evaluation and management. PAST MEDICAL HISTORY: 1. Coronary artery disease. 2. History of drug-eluting stent placement. 3. Paroxysmal atrial fibrillation. 4. Hypertension. 5. Hyperlipidemia. 6. History of cardiomyopathy. 7. Small cell lung cancer, status post radiation and chemotherapy. 8. History of DVT, on Coumadin. 9. History of superior vena cava syndrome. SOCIAL HISTORY: He lives at home. He does not smoke or drink alcohol. FAMILY HISTORY: Noncontributory. REVIEW OF SYSTEMS: Review of systems was thoroughly performed and was negative other than what was mentioned in the history of present illness. PHYSICAL EXAMINATION: VITAL SIGNS: Showed a blood pressure of 139/79, pulse 94, respirations 20, and temperature 96.7. HEAD AND NECK: Showed no JVD or carotid bruits. LUNGS: Decreased breath sounds. CARDIOVASCULAR: Shows regular S1 and S2 with no gallop or murmur. ABDOMEN: Soft and nontender. EXTREMITIES: No pitting edema. LABORATORY DATA: White count is 14.2, hemoglobin 9.6, hematocrit 29, and platelet count 150,000. Sodium 142, potassium 3.3, BUN of 30, creatinine 1.7, and glucose of 95. Troponin is negative x2. Urine toxicology is positive for benzodiazepine. INR is 3.7. ASSESSMENT AND PLAN: 1. Chest pain. The patient with a history of drug-eluting stent. The patient also has small-cell lung cancer. We will completely rule out myocardial infarction per protocol and repeat echocardiogram for further evaluation. I will resume the patient's aspirin, Plavix, and beta-tameka. 2. Coronary artery disease. 3. History of drug-eluting stent. Continue aspirin, Plavix, Lipitor, and Coreg. 4. Paroxysmal atrial fibrillation, sinus rhythm on Coreg and Coumadin. 5. Hypertension. Continue Coreg 12.5 b.i.d., hydrochlorothiazide, and hydralazine 100 mg three times daily. 6. Hyperlipidemia, on Lipitor. 7. History of ischemic cardiomyopathy, ejection fraction of 45%. 8. Small-cell lung cancer, status post radiation as well as chemotherapy just yesterday by Dr. Salguero. 9. History of deep venous thrombosis, on Coumadin per pharmacy. 10. Superior vena cava syndrome. Thank you very much, Dr. Maher, for allowing me to participate in the care of this patient. Please do not hesitate to contact me for any questions regarding my evaluation. Quinton Bradley M.D. DR: [place] JOB#: [id number] CC:
[2017-01-25] MEDS: HydrALAZINE 50mg tab ORAL SCH (06:00)
[2017-01-25] MEDS: GlipiZIDE 5mg tab ORAL SCH ×2 (06:05→17:19)
[2017-01-25] MEDS: NovoLOG Insulin Flexpen SUBQ SCH ×4 (06:30→20:14)
[2017-01-25] MEDS: Albuterol ud Inhalation HHN SCH ×3 (07:16→19:48)
[2017-01-25 07:21] LABS: MEAN CORPUSCULAR HGB CONC 32.4 G/DL (32.0-36.0); MEAN CORPUSCULAR VOLUME 102 FL (80-99); MEAN PLATELET VOLUME 6.2 FL (6.5-10.1); PLATELET COUNT 142 K/UL (150-450); RED BLOOD COUNT 2.71 M/UL (4.70-6.10); RED CELL DISTRIBUTION WIDTH 16.1 % (11.6-14.8); WHITE BLOOD COUNT 11.3 K/UL (4.8-10.8)
[2017-01-25 07:36] LABS: CALCIUM 9.1 mg/dL (8.6-10.2); CREATININE 1.5 mg/dL (0.7-1.2); GLOMERULAR FILTRATION RATE 56.7 mL/min (>60)
[2017-01-25 07:42] LABS: TROPONIN I < 0.30 ng/mL (<=0.30)
[2017-01-25 07:45] LABS: INR 4.2 (0.9-1.1); PROTHROMBIN TIME 44.6 SEC (9.30-11.50)
[2017-01-25 08:00] VITALS: BP 92/72
[2017-01-25 08:43] LABS: ANISOCYTOSIS 1+; BAND NEUTROPHILS % (MANUAL) 7 % (0-8); BASOPHILS % (MANUAL) 0 % (0-2); EOSINOPHILS % (MANUAL) 0 % (0-3); HYPOCHROMASIA 1+; LYMPHOCYTES % (MANUAL) 7 % (20-45); MACROCYTES 1+; NEUTROPHILS % (MANUAL) 84 % (45-75); PLATELET ESTIMATE ADEQUATE; PLATELET MORPHOLOGY NORMAL; TOTAL CELLS COUNTED 100
[2017-01-25] MEDS: Aspirin Baby 81mg NG SCH (09:00)
[2017-01-25] MEDS ORDERED: Diltiazem CD 180mg cap ORAL SCH (09:00)
[2017-01-25] MEDS: Allopurinol 100mg Tab ORAL SCH ×2 (09:40→17:19)
[2017-01-25] MEDS: Sucralfate 1gm tab ORAL SCH ×4 (09:41→20:08)
[2017-01-25] MEDS: Carvedilol 12.5mg tab ORAL SCH ×2 (09:41→20:09)
--- NOTE | 2017-01-25 09:51 | Diagnostic Imaging Report ---
Indication: CP Technique: XRAY CHEST 1 V. Comparison: 01/05/17 Findings: The cardiomediastinal silhouette is stable. There are no acute infiltrates. Impression: No acute abnormality. No change from previous study. .
[2017-01-25 10:44] LABS: HEMOLYSIS 9; IRON 192 ug/dL (59-158); TOTAL IRON BINDING CAPACITY 291 ug/dL (250-400)
[2017-01-25 10:53] LABS: FERRITIN 158 ng/mL (10-230)
[2017-01-25 12:00] VITALS: BP 121/71
[2017-01-25 16:00] VITALS: BP 117/77
[2017-01-25 19:49] VITALS: BP 113/70
--- NOTE | 2017-01-25 19:54 | Consultation ---
Consult Note Assessment/Plan DATE OF CONSULTATION: 01/25/2017 HEMATOLOGY/ONCOLOGY CONSULTATION CONSULTING PHYSICIAN: Anurag Salguero M.D. REQUESTING PHYSICIAN: Miguel Ángel Cho M.D. REASON FOR CONSULTATION: Evaluation of non-small cell lung cancer, getting radiation/chemo. IDENTIFICATION DATA: Dear Dr. Harsh Maher. The patient is a pleasant 66-year-old male, who I follow in the Oncology clinic. He has a past medical history significant for non-small cell lung cancer diagnosed at [facility], has been getting chemotherapy as well as radiation, most recent chemotherapy was about week ago, received chemotherapy with Dr. Jona Salguero, after which improved, and has been doing better and at this time has received radiation at [facility], and at this time presents with shortness of breath and chest pain. Evaluated by Cardiology and Pulmonary teams, noticed to have paroxysmal atrial fibrillation, on Coumadin for anticoag PAST MEDICAL HISTORY: History of paroxysmal atrial fibrillation, type 2 diabetes mellitus, hypertensive cardiovascular disease, ischemic heart disease, status post coronary artery bypass stenting, hyperlipidemia, history of right arm deep vein thrombosis, history of polysubstance abuse, history of superior vena cava syndrome, history of a non-small cell lung cancer, and chronic obstructive pulmonary disease. MEDICATIONS: Multiple medications including hydralazine, allopurinol, hydrochlorothiazide, Brilinta, Coumadin, glipizide, baby aspirin, Lipitor ALLERGIES: BRITTANI inhibitors. SOCIAL HISTORY: The patient lives at home. HABITS: Cigarette smoker. No illicit drug use. FAMILY HISTORY: Unremarkable. REVIEW OF SYSTEMS: Reviewed, as per history of present illness. PE: General Appearance: A+O x3, NAD HEENT: normocephalic, atraumatic Neck: non-tender, normal alignment Respiratory/Chest: chest wall non-tender, lungs clear Cardiovascular/Chest: normal peripheral pulses, normal rate Abdomen: normal bowel sounds, non tender Extremities: normal range of motion Laboratory Tests Test 01/25/17 05:10 01/25/17 15:47 White Blood Count 11.3 K/UL (4.8-10.8) H Red Blood Count 2.71 M/UL (4.70-6.10) L Hemoglobin 8.9 G/DL (14.2-18.0) L Hematocrit 27.6 % (42.0-52.0) L Mean Corpuscular Volume 102 FL (80-99) H Mean Corpuscular Hemoglobin 33.0 PG (27.0-31.0) H Mean Corpuscular Hemoglobin Concent 32.4 G/DL (32.0-36.0) Red Cell Distribution Width 16.1 % (11.6-14.8) H Platelet Count 142 K/UL (150-450) L Mean Platelet Volume 6.2 FL (6.5-10.1) L Neutrophils (%) (Auto) % (45.0-75.0) Lymphocytes (%) (Auto) % (20.0-45.0) Monocytes (%) (Auto) % (1.0-10.0) Eosinophils (%) (Auto) % (0.0-3.0) Basophils (%) (Auto) % (0.0-2.0) Differential Total Cells Counted 100 Neutrophils % (Manual) 84 % (45-75) H Lymphocytes % (Manual) 7 % (20-45) L Monocytes % (Manual) 2 % (1-10) Eosinophils % (Manual) 0 % (0-3) Basophils % (Manual) 0 % (0-2) Band Neutrophils 7 % (0-8) Platelet Estimate Adequate Platelet Morphology Normal Hypochromasia 1+ Anisocytosis 1+ Macrocytosis 1+ Prothrombin Time 44.6 SEC (9.30-11.50) H Prothromb Time International Ratio 4.2 (0.9-1.1) H Sodium Level 145 mEQ/L (135-145) Potassium Level 4.0 mEQ/L (3.4-4.9) Chloride Level 108 mEQ/L (98-107) H Carbon Dioxide Level 24 mEQ/L (20-30) Anion Gap 13 (5-15) Blood Urea Nitrogen 31 mg/dL (7-23) H Creatinine 1.5 mg/dL (0.7-1.2) H Estimat Glomerular Filtration Rate 56.7 mL/min (>60) Glucose Level 129 mg/dL (74-106) H Calcium Level 9.1 mg/dL (8.6-10.2) Iron Level 192 ug/dL (59-158) H Total Iron Binding Capacity 291 ug/dL (250-400) Percent Iron Saturation 66 % (15-50) H Unsaturated Iron Binding 99 ug/dL (112-346) L Ferritin 158 ng/mL (10-230) Troponin I < 0.30 ng/mL (<=0.30) Pro-B-Type Natriuretic Peptide 259 pg/mL (0-125) H Vitamin B12 Level 344 pg/mL (211-946) Folate Pending Stool Occult Blood Pending ASSESSMENT AND PLAN: 1. Non-small cell lung cancer, getting chemotherapy in the outpatient clinic as well as radiation at [facility]. 2. Pancytopenia, which has likely developed. The patient is status post chemotherapy now with suppression. 3. Right arm deep vein thrombosis, on Coumadin treatment 4. History of superior vena cava syndrome, improved with chemotherapy. Continue his Coumadin at this time. 5. Hypertensive heart disease, being seen by Cardiology team, Rafa 6. Ischemic heart disease, status post stent. 7. Polysubstance abuse. 8. Continue to closely monitor. Anurag Salguero. Jan 25, 2017 19:54
[2017-01-25 23:48] VITALS: BP 119/74
[2017-01-26 03:44] VITALS: BP 150/98
[2017-01-26] MEDS: GlipiZIDE 5mg tab ORAL SCH ×2 (06:15→17:06)
[2017-01-26] MEDS: NovoLOG Insulin Flexpen SUBQ SCH ×4 (06:16→20:27)
[2017-01-26] MEDS: Norco 5mg/325mg tab ORAL PRN ×2 (06:21→17:06)
[2017-01-26] MEDS: Albuterol ud Inhalation HHN SCH ×4 (07:31→20:39)
[2017-01-26 08:06] LABS: MEAN CORPUSCULAR HEMOGLOBIN 34.1 PG (27.0-31.0); MEAN CORPUSCULAR HGB CONC 33.5 G/DL (32.0-36.0); MEAN CORPUSCULAR VOLUME 102 FL (80-99); PLATELET COUNT 130 K/UL (150-450); RED BLOOD COUNT 2.81 M/UL (4.70-6.10); RED CELL DISTRIBUTION WIDTH 16.6 % (11.6-14.8); WHITE BLOOD COUNT 9.4 K/UL (4.8-10.8)
[2017-01-26 08:07] VITALS: BP 118/73
--- NOTE | 2017-01-26 08:15 | History and Physical Report ---
DATE OF ADMISSION: 01/24/2017 CHIEF COMPLAINT: Chest pain. HISTORY OF PRESENT ILLNESS: This is a 66-year-old man with a history of CAD, status post stent and paroxysmal atrial fibrillation, hypertension, diabetes, and small-cell lung cancer, status post radiation therapy and chemotherapy. The patient presented to the [facility] for left-sided chest pain. The patient is getting chemotherapy and radiation therapy with Dr. Salguero and the last chemotherapy was yesterday. The last night, the patient experienced left-sided chest pain and came to the ER. The patient has a history of CAD, status post stent in another hospital with similar symptoms. The patient denies nausea, vomiting, fever, chills, abdominal pain, or cough. PAST MEDICAL HISTORY: 1. CAD, status post stent. 2. Paroxysmal atrial fibrillation. 3. Hypertension. 4. Hyperlipidemia. 5. Diabetes. 6. History of cardiomyopathy. 7. Small-cell lung carcinoma, receiving chemotherapy and radiation therapy. 8. History of upper extremity DVT, on Coumadin. 9. History of superior vena cava syndrome. SOCIAL HISTORY: Lives at home. Former smoker and denies alcohol and drug use. FAMILY HISTORY: Noncontributory. ALLERGIES: BRITTANI inhibitor. MEDICATIONS: Home medication reviewed. REVIEW OF SYSTEMS: A 14-point was negative except as in the history of present illness. PHYSICAL EXAMINATION: VITAL SIGNS: Blood pressure this morning is 92/72, heart rate of 90, respiratory rate 18, temperature is 97, and oxygen saturation 96% on room air. GENERAL: On examination, the patient is in no acute distress. Alert, awake, and oriented x3. HEENT: Atraumatic and normocephalic. NECK: Supple. Trachea is midline. LUNGS: Clear to auscultate bilaterally. No rales, no rhonchi, and no chest wall tenderness. HEART: S1-S2. Regular rate and rhythm. No murmur or gallop. ABDOMEN: Soft, nontender. Bowel sounds present. EXTREMITIES: No edema. LABORATORY AND DIAGNOSTIC DATA: White count 11.3, trend down from 14.2, hemoglobin 8.9, hematocrit 27.6, and platelet count is 142. Chemistry: Sodium 145, potassium 4.0, chloride 108, bicarb 24, BUN 31, creatinine is 1.5, trend down from 1.7, glucose is 129, and BNP is 259. Troponin x2 negative. INR is 3.7, today is 4.2. UA showed specific gravity of 1.010, pH of 5, negative nitrite and negative leukocyte esterase. Urine drug screen positive for the benzodiazepines. The chest x-ray is also normal. EKG has normal sinus rhythm and no ST-T wave abnormalities. ASSESSMENT: 1. Chest pain. Need to rule out acute coronary syndrome and three times of troponin was negative. However, the patient has a history of coronary artery disease, status post stent, need to rule out acute coronary syndrome. 2. Anemia. 3. Leukocytosis. However, urine culture negative and also chest x-ray negative. The patient does not have any fever, possible leukemoid reaction due to 03:45. 4. Hypertension, but now the blood pressure is on the lower side. 5. Diabetes. 6. Paroxysmal atrial fibrillation. 7. Right upper extremity deep venous thrombosis, on Coumadin. 8. Acute coronary syndrome. 9. Acute kidney injury on chronic kidney disease, but the creatinine is stable. PLAN: 1. Followup Cardiology. 2. Continue aspirin. 3. Iron check, ferritin 04:23. 4. I will discontinue antibiotics. 5. Hematology and Oncology consult. 6. Continue Coumadin, pharmacy to dose. 7. Hold hydralazine because the patient's blood pressure is on the lower side. Joanie Del Rosario M.D. DR: MEAGHAN JOB#: [id number] CC:
[2017-01-26 08:17] LABS: INR 3.3 (0.9-1.1); PROTHROMBIN TIME 35.5 SEC (9.30-11.50)
[2017-01-26 08:19] LABS: CALCIUM 8.9 mg/dL (8.6-10.2); CREATININE 1.6 mg/dL (0.7-1.2); GLOMERULAR FILTRATION RATE 52.7 mL/min (>60); POTASSIUM 3.8 mEQ/L (3.4-4.9)
[2017-01-26 09:05] LABS: BAND NEUTROPHILS % (MANUAL) 12 % (0-8); BASOPHILS % (MANUAL) 0 % (0-2); EOSINOPHILS % (MANUAL) 1 % (0-3); LYMPHOCYTES % (MANUAL) 12 % (20-45); NEUTROPHILS % (MANUAL) 69 % (45-75); PLATELET ESTIMATE DECREASED; PLATELET MORPHOLOGY NORMAL; TEAR DROP CELLS 1+; TOTAL CELLS COUNTED 100
[2017-01-26 09:06] LABS: ANISOCYTOSIS 1+; BURR CELLS 1+; OVALOCYTES 1+; SCHISTOCYTES 1+
[2017-01-26] MEDS: Carvedilol 12.5mg tab ORAL SCH ×2 (09:51→20:25)
[2017-01-26] MEDS: Allopurinol 100mg Tab ORAL SCH ×2 (09:51→17:06)
[2017-01-26] MEDS: Sucralfate 1gm tab ORAL SCH ×4 (09:51→20:24)
[2017-01-26] MEDS: Aspirin Baby 81mg NG SCH (09:52)
[2017-01-26 11:23] VITALS: BP 109/60
--- NOTE | 2017-01-26 14:17 | Consultation ---
Consult Note Consult Note HISTORY OF PRESENT ILLNESS: 66-year-old male, presents with shortness of breath and ongoing respiratory symptoms. Patient with COPD and notes cough and chest tightness. no fevers or chills. Patient care reviewed in detail. Patient has extensive cardiopulmonary status. Findings reviewed and discussed. Patient under care of oncology. PAST MEDICAL HISTORY: 1. History of paroxysmal atrial fibrillation. 2. Type 2 diabetes mellitus. 3. Hypertensive cardiovascular disease. 4. Ischemic heart disease. 5. Status post coronary artery bypass stenting. 6. Hyperlipidemia. 7. History of right arm deep vein thrombosis. 8. History of polysubstance abuse. 9. History of superior vena caval syndrome. 10. History of a non-small cell lung cancer. 11. Chronic obstructive pulmonary disease. HOME MEDICATIONS: reviewed and reconciled ALLERGIES: reviewed FAMILY HISTORY: Unremarkable. SOCIAL HISTORY: He lives at home. nicotine addiction, currently not working REVIEW OF SYSTEMS: all 10 points reviewed PHYSICAL EXAMINATION: VITAL SIGNS: Blood pressure 109/62, pulse 70 and regular, respirations 14, and temperature 98.2 degrees. WDWN NAD reduced breath sounds bilaterally without rhonchi or wheeze [id number] without MRG NABS nontender no HSM no CCE nonfocal EOMI Labs Test 01/24/17 14:00 01/24/17 14:10 01/24/17 18:15 01/24/17 18:30 Urine Color Pale yellow Pale yellow Urine Appearance Clear Clear Urine pH 6 (4.5-8.0) 5 (4.5-8.0) Urine Specific [place] 1.010 (1.005-1.035) 1.010 (1.005-1.035) Urine Protein Negative (NEGATIVE) Negative (NEGATIVE) Urine Glucose (UA) Negative (NEGATIVE) Negative (NEGATIVE) Urine Ketones Negative (NEGATIVE) Negative (NEGATIVE) Urine Occult Blood Negative (NEGATIVE) Negative (NEGATIVE) Urine Nitrite Negative (NEGATIVE) Negative (NEGATIVE) Urine Bilirubin Negative (NEGATIVE) Negative (NEGATIVE) Urine Urobilinogen Normal MG/DL (0.0-1.0) Normal MG/DL (0.0-1.0) Urine Leukocyte Esterase Negative (NEGATIVE) Negative (NEGATIVE) Urine Opiates Screen Negative (NEGATIVE) Urine Barbiturates Screen Negative (NEGATIVE) Phencyclidine (PCP) Screen Negative (NEGATIVE) Urine Amphetamines Screen Negative (NEGATIVE) Urine Benzodiazepines Screen Positive (NEGATIVE) Urine Cocaine Screen Negative (NEGATIVE) Urine Marijuana (THC) Screen Negative (NEGATIVE) White Blood Count 14.2 K/UL (4.8-10.8) Red Blood Count 2.86 M/UL (4.70-6.10) Hemoglobin 9.6 G/DL (14.2-18.0) Hematocrit 29.0 % (42.0-52.0) Mean Corpuscular Volume 101 FL (80-99) Mean Corpuscular Hemoglobin 33.4 PG (27.0-31.0) Mean Corpuscular Hemoglobin Concent 33.0 G/DL (32.0-36.0) Red Cell Distribution Width 16.7 % (11.6-14.8) Platelet Count 150 K/UL (150-450) Mean Platelet Volume 6.5 FL (6.5-10.1) Neutrophils (%) (Auto) % (45.0-75.0) Lymphocytes (%) (Auto) % (20.0-45.0) Monocytes (%) (Auto) % (1.0-10.0) Eosinophils (%) (Auto) % (0.0-3.0) Basophils (%) (Auto) % (0.0-2.0) Differential Total Cells Counted 100 Neutrophils % (Manual) 82 % (45-75) Lymphocytes % (Manual) 9 % (20-45) Monocytes % (Manual) 4 % (1-10) Eosinophils % (Manual) 0 % (0-3) Basophils % (Manual) 0 % (0-2) Band Neutrophils 5 % (0-8) Platelet Estimate Adequate Platelet Morphology Normal Hypochromasia 1+ Anisocytosis 1+ Macrocytosis 1+ Prothrombin Time 39.2 SEC (9.30-11.50) Prothromb Time International Ratio 3.7 (0.9-1.1) Activated Partial Thromboplast Time 36 SEC (23-33) Sodium Level 142 mEQ/L (135-145) Potassium Level 3.3 mEQ/L (3.4-4.9) Chloride Level 104 mEQ/L (98-107) Carbon Dioxide Level 24 mEQ/L (20-30) Anion Gap 14 (5-15) Blood Urea Nitrogen 30 mg/dL (7-23) Creatinine 1.7 mg/dL (0.7-1.2) Estimat Glomerular Filtration Rate 49.1 mL/min (>60) Glucose Level 95 mg/dL (74-106) Calcium Level 9.0 mg/dL (8.6-10.2) Total Bilirubin 0.9 mg/dL (0.0-1.2) Aspartate Amino Transf (AST/SGOT) 20 U/L (5-40) Alanine Aminotransferase (ALT/SGPT) 19 U/L (3-41) Alkaline Phosphatase 60 U/L (40-129) Total Creatine Kinase 133 U/L (38-174) Troponin I < 0.30 ng/mL (<=0.30) < 0.30 ng/mL (<=0.30) Pro-B-Type Natriuretic Peptide 351 pg/mL (0-125) Total Protein 6.3 g/dL (6.6-8.7) Albumin 3.7 g/dL (3.5-5.2) Globulin 2.6 g/dL Albumin/Globulin Ratio 1.4 (1.0-2.7) Test 01/25/17 05:10 01/25/17 15:47 01/26/17 07:40 White Blood Count 11.3 K/UL (4.8-10.8) 9.4 K/UL (4.8-10.8) Red Blood Count 2.71 M/UL (4.70-6.10) 2.81 M/UL (4.70-6.10) Hemoglobin 8.9 G/DL (14.2-18.0) 9.6 G/DL (14.2-18.0) Hematocrit 27.6 % (42.0-52.0) 28.6 % (42.0-52.0) Mean Corpuscular Volume 102 FL (80-99) 102 FL (80-99) Mean Corpuscular Hemoglobin 33.0 PG (27.0-31.0) 34.1 PG (27.0-31.0) Mean Corpuscular Hemoglobin Concent 32.4 G/DL (32.0-36.0) 33.5 G/DL (32.0-36.0) Red Cell Distribution Width 16.1 % (11.6-14.8) 16.6 % (11.6-14.8) Platelet Count 142 K/UL (150-450) 130 K/UL (150-450) Mean Platelet Volume 6.2 FL (6.5-10.1) 7.0 FL (6.5-10.1) Neutrophils (%) (Auto) % (45.0-75.0) % (45.0-75.0) Lymphocytes (%) (Auto) % (20.0-45.0) % (20.0-45.0) Monocytes (%) (Auto) % (1.0-10.0) % (1.0-10.0) Eosinophils (%) (Auto) % (0.0-3.0) % (0.0-3.0) Basophils (%) (Auto) % (0.0-2.0) % (0.0-2.0) Differential Total Cells Counted 100 100 Neutrophils % (Manual) 84 % (45-75) 69 % (45-75) Lymphocytes % (Manual) 7 % (20-45) 12 % (20-45) Monocytes % (Manual) 2 % (1-10) 6 % (1-10) Eosinophils % (Manual) 0 % (0-3) 1 % (0-3) Basophils % (Manual) 0 % (0-2) 0 % (0-2) Band Neutrophils 7 % (0-8) 12 % (0-8) Platelet Estimate Adequate Decreased Platelet Morphology Normal Normal Hypochromasia 1+ Anisocytosis 1+ 1+ Macrocytosis 1+ Prothrombin Time 44.6 SEC (9.30-11.50) 35.5 SEC (9.30-11.50) Prothromb Time International Ratio 4.2 (0.9-1.1) 3.3 (0.9-1.1) Sodium Level 145 mEQ/L (135-145) 141 mEQ/L (135-145) Potassium Level 4.0 mEQ/L (3.4-4.9) 3.8 mEQ/L (3.4-4.9) Chloride Level 108 mEQ/L (98-107) 103 mEQ/L (98-107) Carbon Dioxide Level 24 mEQ/L (20-30) 25 mEQ/L (20-30) Anion Gap 13 (5-15) 13 (5-15) Blood Urea Nitrogen 31 mg/dL (7-23) 31 mg/dL (7-23) Creatinine 1.5 mg/dL (0.7-1.2) 1.6 mg/dL (0.7-1.2) Estimat Glomerular Filtration Rate 56.7 mL/min (>60) 52.7 mL/min (>60) Glucose Level 129 mg/dL (74-106) 107 mg/dL (74-106) Calcium Level 9.1 mg/dL (8.6-10.2) 8.9 mg/dL (8.6-10.2) Iron Level 192 ug/dL (59-158) Total Iron Binding Capacity 291 ug/dL (250-400) Percent Iron Saturation 66 % (15-50) Unsaturated Iron Binding 99 ug/dL (112-346) Ferritin 158 ng/mL (10-230) Troponin I < 0.30 ng/mL (<=0.30) Pro-B-Type Natriuretic Peptide 259 pg/mL (0-125) Vitamin B12 Level 344 pg/mL (211-946) Stool Occult Blood Negative (NEGATIVE) Tear Drop Cells 1+ Ovalocytes 1+ [place] Cells 1+ Schistocytes 1+ IMPRESSION non small cell cancer COPD respiratory insufficiency SVC syndrome RUE DVT on coumadin PLAN care noted respiratory care meds noted supportive care encourage cough oxygen therapy prognosis guarded outpatient PFT CATIA MCGARRY Jan 26, 2017 14:17
--- NOTE | 2017-01-26 15:02 | General Progress Note ---
Assessment/Plan Assessment/Plan . History of paroxysmal atrial fibrillation. 2. Type 2 diabetes mellitus. 3. Hypertensive cardiovascular disease. 4. Ischemic heart disease. 5. Status post coronary artery bypass stenting. 6. Hyperlipidemia. 7. History of right arm deep vein thrombosis. 8. History of polysubstance abuse. 9. History of superior vena caval syndrome. 10. History of a non-small cell lung cancer. 11. Chronic obstructive pulmonary disease. W/U in progress. R/o PTE. Subjective Allergies: Coded Allergies: BRITTANI INHIBITORS (Unverified Allergy, Unknown, 03/19/15) Subjective Still SOB. On O2 therapy. Objective Last 24 Hour Vital Signs Date Time Temp Pulse Resp B/P (MAP) Pulse Ox O2 Delivery O2 Flow Rate FiO2 01/26/17 12:00 76 01/26/17 11:23 97.5 82 20 109/60 100 Nasal Cannula 2.0 01/26/17 09:51 83 118/73 01/26/17 08:07 98.1 83 20 118/73 100 Nasal Cannula 2.0 01/26/17 08:00 81 01/26/17 07:32 99 Nasal Cannula 2.0 28 01/26/17 07:32 Nasal Cannula 2.0 01/26/17 07:25 87 20 99 Nasal Cannula 2.0 01/26/17 07:20 98.6 01/26/17 07:20 85 20 99 Nasal Cannula 2.0 01/26/17 04:00 76 01/26/17 03:44 98.6 96 20 150/98 98 Room Air 01/26/17 01:30 Nasal Cannula 2.0 01/26/17 01:30 Nasal Cannula 2.0 01/26/17 00:00 78 01/25/17 23:48 97.2 63 21 119/74 98 Nasal Cannula 2.0 01/25/17 20:09 78 113/70 01/25/17 20:00 73 01/25/17 19:51 98 Nasal Cannula 2.0 01/25/17 19:51 Nasal Cannula 2.0 01/25/17 19:50 78 20 99 Nasal Cannula 2.0 01/25/17 19:49 98.6 78 20 113/70 97 Nasal Cannula 2.0 01/25/17 19:49 74 20 98 Nasal Cannula 2.0 01/25/17 19:48 74 20 Nasal Cannula 2.0 28 01/25/17 16:00 97.0 71 21 117/77 98 Nasal Cannula 2.0 01/25/17 16:00 70 Intake and Output 01/26/17 01/27/17 19:00 07:00 Intake Total 670 ml Balance 670 ml Intake Oral 670 ml # Voids 2 # Bowel Movements 1 Laboratory Tests 01/25/17 15:47: Stool Occult Blood Negative 01/26/17 07:40: White Blood Count 9.4, Red Blood Count 2.81L, Hemoglobin 9.6L, Hematocrit 28.6L , Mean Corpuscular Volume 102H, Mean Corpuscular Hemoglobin 34.1H, Mean Corpuscular Hemoglobin Concent 33.5, Red Cell Distribution Width 16.6H, Platelet Count 130L, Mean Platelet Volume 7.0, Neutrophils (%) (Auto) , Lymphocytes (%) (Auto) , Monocytes (%) (Auto) , Eosinophils (%) (Auto) , Basophils (%) (Auto) , Differential Total Cells Counted 100, Neutrophils % ( Manual) 69, Lymphocytes % (Manual) 12L, Monocytes % (Manual) 6, Eosinophils % ( Manual) 1, Basophils % (Manual) 0, Band Neutrophils 12H, Platelet Estimate DecreasedL, Platelet Morphology Normal, Anisocytosis 1+, Tear Drop Cells 1+, Ovalocytes 1+, [place] Cells 1+, Schistocytes 1+, Prothrombin Time 35.5H, Prothromb Time International Ratio 3.3H, Sodium Level 141, Potassium Level 3.8, Chloride Level 103, Carbon Dioxide Level 25, Anion Gap 13, Blood Urea Nitrogen 31H, Creatinine 1.6H, Estimat Glomerular Filtration Rate 52.7, Glucose Level 107H, Calcium Level 8.9 Height (Feet): 6 Height (Inches): 0.00 Weight (Pounds): 165 Objective Cv RR Lungs B wheezes. Abd SNT. BS + E Min B Edema CHERYL RABAGO Jan 26, 2017 15:01
[2017-01-26 15:39] VITALS: BP 126/81
--- NOTE | 2017-01-26 16:56 | General Progress Note ---
Assessment/Plan Assessment/Plan ASSESSMENT AND PLAN: 1. Non-small cell lung cancer, getting chemotherapy in the outpatient clinic as well as radiation at [facility]. 2. Pancytopenia, which has likely developed. The patient is status post chemotherapy now with myelosuppression. 3. History of Right arm deep vein thrombosis, on Coumadin treatment --> INR goal is between 2-3 4. History of superior vena cava syndrome, improved with chemotherapy. Continue his Coumadin at this time. 5. Hypertensive heart disease, being seen by Cardiology team 6. Ischemic heart disease, status post stent. 7. Polysubstance abuse. 8. Continue to closely monitor. Subjective Constitutional: Reports: no symptoms HEENT: Reports: no symptoms Cardiovascular: Reports: no symptoms Respiratory: Reports: no symptoms Gastrointestinal/Abdominal: Reports: no symptoms Genitourinary: Reports: no symptoms Neurologic/Psychiatric: Reports: no symptoms Endocrine: Reports: no symptoms Hematologic/Lymphatic: Reports: anemia Allergies: Coded Allergies: BRITTANI INHIBITORS (Unverified Allergy, Unknown, 03/19/15) Subjective NAD Objective Last 24 Hour Vital Signs Date Time Temp Pulse Resp B/P (MAP) Pulse Ox O2 Delivery O2 Flow Rate FiO2 01/26/17 15:39 98.1 84 20 126/81 100 Nasal Cannula 2.0 01/26/17 15:19 76 20 99 Nasal Cannula 2.0 28 01/26/17 15:15 81 20 99 Nasal Cannula 2.0 01/26/17 12:00 76 01/26/17 11:23 97.5 82 20 109/60 100 Nasal Cannula 2.0 01/26/17 09:51 83 118/73 01/26/17 08:07 98.1 83 20 118/73 100 Nasal Cannula 2.0 01/26/17 08:00 81 01/26/17 07:32 99 Nasal Cannula 2.0 28 01/26/17 07:32 Nasal Cannula 2.0 28 01/26/17 07:25 87 20 99 Nasal Cannula 2.0 28 01/26/17 07:20 98.6 01/26/17 07:20 85 20 99 Nasal Cannula 2.0 01/26/17 04:00 76 01/26/17 03:44 98.6 96 20 150/98 98 Room Air 01/26/17 01:30 Nasal Cannula 2.0 01/26/17 01:30 Nasal Cannula 2.0 28 01/26/17 00:00 78 01/25/17 23:48 97.2 63 21 119/74 98 Nasal Cannula 2.0 01/25/17 20:09 78 113/70 01/25/17 20:00 73 01/25/17 19:51 98 Nasal Cannula 2.0 28 01/25/17 19:51 Nasal Cannula 2.0 28 01/25/17 19:50 78 20 99 Nasal Cannula 2.0 28 01/25/17 19:49 98.6 78 20 113/70 97 Nasal Cannula 2.0 01/25/17 19:49 74 20 98 Nasal Cannula 2.0 28 01/25/17 19:48 74 20 Nasal Cannula 2.0 28 Intake and Output 01/26/17 01/27/17 19:00 07:00 Intake Total 910 ml Balance 910 ml Intake Oral 910 ml # Voids 3 # Bowel Movements 1 Laboratory Tests 01/26/17 07:40: White Blood Count 9.4, Red Blood Count 2.81L, Hemoglobin 9.6L, Hematocrit 28.6L , Mean Corpuscular Volume 102H, Mean Corpuscular Hemoglobin 34.1H, Mean Corpuscular Hemoglobin Concent 33.5, Red Cell Distribution Width 16.6H, Platelet Count 130L, Mean Platelet Volume 7.0, Neutrophils (%) (Auto) , Lymphocytes (%) (Auto) , Monocytes (%) (Auto) , Eosinophils (%) (Auto) , Basophils (%) (Auto) , Differential Total Cells Counted 100, Neutrophils % ( Manual) 69, Lymphocytes % (Manual) 12L, Monocytes % (Manual) 6, Eosinophils % ( Manual) 1, Basophils % (Manual) 0, Band Neutrophils 12H, Platelet Estimate DecreasedL, Platelet Morphology Normal, Anisocytosis 1+, Tear Drop Cells 1+, Ovalocytes 1+, [place] Cells 1+, Schistocytes 1+, Prothrombin Time 35.5H, Prothromb Time International Ratio 3.3H, Sodium Level 141, Potassium Level 3.8, Chloride Level 103, Carbon Dioxide Level 25, Anion Gap 13, Blood Urea Nitrogen 31H, Creatinine 1.6H, Estimat Glomerular Filtration Rate 52.7, Glucose Level 107H, Calcium Level 8.9 Height (Feet): 6 Height (Inches): 0.00 Weight (Pounds): 165 General Appearance: no apparent distress EENT: normal ENT inspection Neck: normal alignment Cardiovascular: normal peripheral pulses Respiratory/Chest: chest wall non-tender Neurologic: decoration checker II-XII grossly normal Skin: normal pigmentation, warm/dry Anurag Salguero Jan 26, 2017 16:56
[2017-01-26] MEDS ORDERED: Warfarin Sodium 5mg ORAL ONE (17:00)
--- NOTE | 2017-01-26 17:58 | Cardiac Electrophysiology PN ---
Assessment/Plan Assessment/Plan 1. CP. Ruled out for [place]. Could be due to CAD on lung cancer 2. Coronary artery disease with S/P Drug-eluting stent. Continue with Lipitor, Plavix, aspirin and Coreg 12.5 bid 3. Paroxysmal atrial fibrillation in sinus rhythm on Coreg and Coumadin per Rx. 4. Hypertension on hydralazine 100 mg three times daily,Coreg 12.5 bid and HCTZ 5. Hyperlipidemia on Lipitor. 6. Cardiomyopathy with EF 45%.Add Lasix 40 iv daily 7. Small cell lung cancer, status post radiation therapy and chemotherapy.Per Dr Martinez 8. History of deep venous thrombosis. Continue Coumadin per pharmacy. 9. History of superior vena caval syndrome. RICK RN Subjective Subjective Feeling better. No chest pain or SOB. Objective Last 24 Hour Vital Signs Date Time Temp Pulse Resp B/P (MAP) Pulse Ox O2 Delivery O2 Flow Rate FiO2 01/26/17 15:39 98.1 84 20 126/81 100 Nasal Cannula 2.0 01/26/17 15:19 76 20 99 Nasal Cannula 2.0 28 01/26/17 15:15 81 20 99 Nasal Cannula 2.0 28 01/26/17 12:00 76 01/26/17 11:23 97.5 82 20 109/60 100 Nasal Cannula 2.0 01/26/17 09:51 83 118/73 01/26/17 08:07 98.1 83 20 118/73 100 Nasal Cannula 2.0 01/26/17 08:00 81 01/26/17 07:32 99 Nasal Cannula 2.0 28 01/26/17 07:32 Nasal Cannula 2.0 01/26/17 07:25 87 20 99 Nasal Cannula 2.0 28 01/26/17 07:20 98.6 01/26/17 07:20 85 20 99 Nasal Cannula 2.0 28 01/26/17 04:00 76 01/26/17 03:44 98.6 96 20 150/98 98 Room Air 01/26/17 01:30 Nasal Cannula 2.0 28 01/26/17 01:30 Nasal Cannula 2.0 01/26/17 00:00 78 01/25/17 23:48 97.2 63 21 119/74 98 Nasal Cannula 2.0 01/25/17 20:09 78 113/70 01/25/17 20:00 73 01/25/17 19:51 98 Nasal Cannula 2.0 28 01/25/17 19:51 Nasal Cannula 2.0 28 01/25/17 19:50 78 20 99 Nasal Cannula 2.0 28 01/25/17 19:49 98.6 78 20 113/70 97 Nasal Cannula 2.0 01/25/17 19:49 74 20 98 Nasal Cannula 2.0 28 01/25/17 19:48 74 20 Nasal Cannula 2.0 28 Intake and Output 01/26/17 01/27/17 19:00 07:00 Intake Total 910 ml Balance 910 ml Intake Oral 910 ml # Voids 3 # Bowel Movements 1 Laboratory Tests Test 01/26/17 07:40 White Blood Count 9.4 K/UL (4.8-10.8) Red Blood Count 2.81 M/UL (4.70-6.10) L Hemoglobin 9.6 G/DL (14.2-18.0) L Hematocrit 28.6 % (42.0-52.0) L Mean Corpuscular Volume 102 FL (80-99) H Mean Corpuscular Hemoglobin 34.1 PG (27.0-31.0) H Mean Corpuscular Hemoglobin Concent 33.5 G/DL (32.0-36.0) Red Cell Distribution Width 16.6 % (11.6-14.8) H Platelet Count 130 K/UL (150-450) L Mean Platelet Volume 7.0 FL (6.5-10.1) Neutrophils (%) (Auto) % (45.0-75.0) Lymphocytes (%) (Auto) % (20.0-45.0) Monocytes (%) (Auto) % (1.0-10.0) Eosinophils (%) (Auto) % (0.0-3.0) Basophils (%) (Auto) % (0.0-2.0) Differential Total Cells Counted 100 Neutrophils % (Manual) 69 % (45-75) Lymphocytes % (Manual) 12 % (20-45) L Monocytes % (Manual) 6 % (1-10) Eosinophils % (Manual) 1 % (0-3) Basophils % (Manual) 0 % (0-2) Band Neutrophils 12 % (0-8) H Platelet Estimate Decreased L Platelet Morphology Normal Anisocytosis 1+ Tear Drop Cells 1+ Ovalocytes 1+ Sandy Cells 1+ Schistocytes 1+ Prothrombin Time 35.5 SEC (9.30-11.50) H Prothromb Time International Ratio 3.3 (0.9-1.1) H Sodium Level 141 mEQ/L (135-145) Potassium Level 3.8 mEQ/L (3.4-4.9) Chloride Level 103 mEQ/L (98-107) Carbon Dioxide Level 25 mEQ/L (20-30) Anion Gap 13 (5-15) Blood Urea Nitrogen 31 mg/dL (7-23) H Creatinine 1.6 mg/dL (0.7-1.2) H Estimat Glomerular Filtration Rate 52.7 mL/min (>60) Glucose Level 107 mg/dL (74-106) H Calcium Level 8.9 mg/dL (8.6-10.2) Microbiology Date/Time Source Procedure Growth Status 01/24/17 18:30 Urine,Clean Catch Urine Culture - Preliminary NO GROWTH AFTER 24 HOURS Resulted Objective HEAD AND NECK: Showed no JVD or carotid bruits. LUNGS: Decreased breath sounds. CARDIOVASCULAR: Shows regular S1 and S2 with no gallop or murmur. ABDOMEN: Soft and nontender. EXTREMITIES: No pitting edema. DARNELL RICK Jan 26, 2017 17:58
--- NOTE | 2017-01-26 18:35 | Cardiology Report ---
APPROVED REPORT EKG Measurement Heart [id number] Normal sinus rhythm Anteroseptal infarct, age undetermined Abnormal ECG
--- NOTE | 2017-01-26 18:37 | Cardiology Report ---
APPROVED REPORT EKG Measurement Heart [id number] Normal sinus rhythm Anteroseptal infarct, age undetermined Abnormal ECG
[2017-01-26 20:00] VITALS: BP 122/86
[2017-01-27] MEDS: Norco 5mg/325mg tab ORAL PRN ×3 (00:12→16:02)
[2017-01-27 00:15] VITALS: BP 121/74
[2017-01-27] MEDS: Albuterol ud Inhalation HHN SCH ×4 (01:09→20:38)
[2017-01-27 04:07] VITALS: BP 133/71
[2017-01-27] MEDS: GlipiZIDE 5mg tab ORAL SCH ×2 (05:25→16:02)
[2017-01-27] MEDS: NovoLOG Insulin Flexpen SUBQ SCH ×4 (05:26→21:00)
[2017-01-27 08:09] LABS: INR 2.8 (0.9-1.1); PROTHROMBIN TIME 29.6 SEC (9.30-11.50)
[2017-01-27 08:10] VITALS: BP 129/82
--- NOTE | 2017-01-27 08:28 | Pulmonology Progress Note ---
Assessment/Plan Assessment/Plan IMPRESSION non small cell cancer COPD respiratory insufficiency SVC syndrome RUE DVT on coumadin PLAN care noted respiratory care meds noted supportive care as outlined encourage cough oxygen therapy prognosis guarded outpatient PFT when well oncology followup noted impression, plan, and exam edited and reviewed in detail care discussed with RN Subjective Allergies: Coded Allergies: BRITTANI INHIBITORS (Unverified Allergy, Unknown, 03/19/15) Subjective some sob and cough no congestion noted on oxygen Objective Last 24 Hour Vital Signs Date Time Temp Pulse Resp B/P (MAP) Pulse Ox O2 Delivery O2 Flow Rate FiO2 01/27/17 08:10 98.4 88 20 129/82 98 Room Air 01/27/17 07:46 97 Room Air 01/27/17 07:46 Room Air 01/27/17 07:44 86 18 98 Room Air 01/27/17 04:07 97.8 93 18 133/71 99 Room Air 2.0 01/27/17 04:00 85 01/27/17 01:11 97.2 01/27/17 01:09 78 20 96 Nasal Cannula 2.0 28 01/27/17 01:09 82 20 98 Nasal Cannula 2.0 28 01/27/17 00:15 97.2 97 18 121/74 97 Room Air 2.0 01/27/17 00:00 85 01/26/17 20:25 87 129/78 01/26/17 20:00 84 01/26/17 20:00 98.1 91 20 122/86 99 Room Air 2.0 28 01/26/17 20:00 98.1 91 20 122/86 99 Room Air 01/26/17 19:45 80 20 99 Nasal Cannula 2.0 28 01/26/17 19:30 Nasal Cannula 2.0 28 01/26/17 19:30 75 20 97 Nasal Cannula 2.0 28 01/26/17 19:30 98 Nasal Cannula 2.0 28 01/26/17 16:00 79 01/26/17 15:39 98.1 84 20 126/81 100 Nasal Cannula 2.0 01/26/17 15:19 76 20 99 Nasal Cannula 2.0 28 01/26/17 15:15 81 20 99 Nasal Cannula 2.0 28 01/26/17 12:00 76 01/26/17 11:23 97.5 82 20 109/60 100 Nasal Cannula 2.0 01/26/17 09:51 83 118/73 Intake and Output 01/27/17 01/28/17 19:00 07:00 Intake Total 240 ml Balance 240 ml Intake Oral 240 ml Objective WDWN NAD reduced breath sounds bilaterally without rhonchi or wheeze [id number] without MRG NABS nontender no HSM no CCE nonfocal weak alert and oriented Microbiology Date/Time Source Procedure Growth Status 01/24/17 18:30 Urine,Clean Catch Urine Culture - Final Mixed Gram Positive Organism Complete Laboratory Tests 01/27/17 07:15: Prothrombin Time [Pending], Prothromb Time International Ratio [Pending] Current Medications Medications (Trade) Dose Ordered Sig/Allen Route PRN Reason Start Time Stop Time Status Last Admin Dose Admin Acetaminophen/ Hydrocodone Bitart ([place] 5/325) 1 tab Q6H PRN ORAL For Pain 01/24/17 18:00 01/31/17 17:59 01/27/17 00:12 Albuterol Sulfate (Proventil) 2.5 mg EVERY 6 HOURS HHN 01/25/17 06:00 01/30/17 05:59 01/27/17 07:42 Allopurinol (Zyloprim) 100 mg BID ORAL 01/25/17 09:00 02/24/17 08:59 01/26/17 17:06 Aspirin (ASA) 81 mg DAILY NG 01/25/17 09:00 02/24/17 08:59 01/26/17 09:52 Atorvastatin Calcium (Lipitor) 40 mg BEDTIME ORAL 01/24/17 21:00 02/23/17 20:59 01/26/17 20:24 Carvedilol (Coreg) 12.5 mg EVERY 12 HOURS ORAL 01/24/17 21:00 02/23/17 20:59 01/26/17 20:25 Clopidogrel Bisulfate (Plavix) 75 mg DAILY ORAL 01/25/17 09:00 02/24/17 08:59 01/26/17 09:51 Dextrose (Dextrose 50%) STAT PRN IV Hypoglycemia 01/24/17 18:15 02/23/17 18:14 Diphenhydramine HCl (Benadryl) 25 mg HSPRN PRN ORAL Insomnia 01/24/17 18:15 02/23/17 18:14 Furosemide (Lasix) 40 mg DAILY IV 01/27/17 09:00 02/26/17 08:59 Glipizide (Glucotrol) 5 mg BIAC ORAL 01/25/17 06:30 02/24/17 06:29 01/27/17 05:25 Insulin Aspart (NovoLOG) BEFORE MEALS AND HS SUBQ 01/24/17 21:00 02/23/17 20:59 Nitroglycerin (Ntg) 0.4 mg Q5M PRN SL Prn Chest Pain 01/24/17 18:00 02/23/17 17:59 Pantoprazole (Protonix) 40 mg DAILY ORAL 01/25/17 09:00 02/24/17 08:59 01/26/17 09:51 Sucralfate (Carafate) 1 gm FOUR TIMES A DAY ORAL 01/24/17 21:00 02/23/17 20:59 01/26/17 20:24 Warfarin Sodium (Coumadin per pharmacy) 1 ea DAILY PRN MISC Per rx protocol 01/24/17 18:15 02/23/17 18:14 CATIA MCGARRY Jan 27, 2017 08:28
[2017-01-27] MEDS: Carvedilol 12.5mg tab ORAL SCH ×2 (08:46→21:34)
[2017-01-27] MEDS: Sucralfate 1gm tab ORAL SCH ×4 (08:47→21:34)
[2017-01-27] MEDS: Allopurinol 100mg Tab ORAL SCH ×2 (08:47→17:37)
[2017-01-27] MEDS: Aspirin Baby 81mg NG SCH (08:47)
--- NOTE | 2017-01-27 11:10 | General Progress Note ---
Assessment/Plan Assessment/Plan . History of paroxysmal atrial fibrillation. 2. Type 2 diabetes mellitus. 3. Hypertensive cardiovascular disease. 4. Ischemic heart disease. 5. Status post coronary artery bypass stenting. 6. Hyperlipidemia. 7. History of right arm deep vein thrombosis. 8. History of polysubstance abuse. 9. History of superior vena caval syndrome. 10. History of a non-small cell lung cancer. 11. Chronic obstructive pulmonary disease. W/U in progress. R/o PTE. To Dr. Otero. Subjective Allergies: Coded Allergies: BRITTANI INHIBITORS (Unverified Allergy, Unknown, 03/19/15) Subjective Still SOB. On O2 therapy. Objective Last 24 Hour Vital Signs Date Time Temp Pulse Resp B/P (MAP) Pulse Ox O2 Delivery O2 Flow Rate FiO2 01/27/17 08:46 88 129/82 01/27/17 08:10 98.4 88 20 129/82 98 Room Air 01/27/17 07:55 87 18 98 Room Air 01/27/17 07:46 97 Room Air 01/27/17 07:46 Room Air 01/27/17 07:44 86 18 98 Room Air 01/27/17 04:07 97.8 93 18 133/71 99 Room Air 2.0 01/27/17 04:00 85 01/27/17 01:11 97.2 01/27/17 01:09 78 20 96 Nasal Cannula 2.0 01/27/17 01:09 82 20 98 Nasal Cannula 2.0 01/27/17 00:15 97.2 97 18 121/74 97 Room Air 2.0 01/27/17 00:00 85 01/26/17 20:25 87 129/78 01/26/17 20:00 84 01/26/17 20:00 98.1 91 20 122/86 99 Room Air 2.0 01/26/17 20:00 98.1 91 20 122/86 99 Room Air 01/26/17 19:45 80 20 99 Nasal Cannula 2.0 01/26/17 19:30 Nasal Cannula 2.0 01/26/17 19:30 75 20 97 Nasal Cannula 2.0 01/26/17 19:30 98 Nasal Cannula 2.0 01/26/17 16:00 79 01/26/17 15:39 98.1 84 20 126/81 100 Nasal Cannula 2.0 01/26/17 15:19 76 20 99 Nasal Cannula 2.0 28 01/26/17 15:15 81 20 99 Nasal Cannula 2.0 28 01/26/17 12:00 76 01/26/17 11:23 97.5 82 20 109/60 100 Nasal Cannula 2.0 Intake and Output 01/27/17 01/28/17 19:00 07:00 Intake Total 240 ml Balance 240 ml Intake Oral 240 ml Laboratory Tests 01/27/17 07:15: Prothrombin Time 29.6H, Prothromb Time International Ratio 2.8H Height (Feet): 6 Height (Inches): 0.00 Weight (Pounds): 162 Objective Cv RR Lungs B wheezes. Abd SNT. BS + E Min B Edema CHERYL RABAGO Jan 27, 2017 11:10
[2017-01-27 11:26] VITALS: BP 122/85
[2017-01-27 15:31] VITALS: BP 132/76
[2017-01-27] MEDS ORDERED: Warfarin Sodium 7.5mg ORAL ONE (17:00)
--- NOTE | 2017-01-27 18:24 | General Progress Note ---
Assessment/Plan Assessment/Plan ASSESSMENT AND PLAN: 1. Non-small cell lung cancer, getting chemotherapy in the outpatient clinic as well as radiation at [facility]. 2. Pancytopenia, which has likely developed. The patient is status post chemotherapy now with myelosuppression. ---> no labs for today 3. History of Right arm deep vein thrombosis, on Coumadin treatment --> INR goal is between 2-3 4. History of superior vena cava syndrome, improved with chemotherapy. Continue his Coumadin at this time. 5. Hypertensive heart disease, being seen by Cardiology team 6. Ischemic heart disease, status post stent. 7. Polysubstance abuse. 8. Continue to closely monitor. Subjective Constitutional: Reports: no symptoms HEENT: Reports: no symptoms Cardiovascular: Reports: no symptoms Respiratory: Reports: shortness of breath Genitourinary: Reports: no symptoms Neurologic/Psychiatric: Reports: no symptoms Endocrine: Reports: no symptoms Hematologic/Lymphatic: Reports: anemia Allergies: Coded Allergies: BRITTANI INHIBITORS (Unverified Allergy, Unknown, 03/19/15) Subjective NAD Objective Last 24 Hour Vital Signs Date Time Temp Pulse Resp B/P (MAP) Pulse Ox O2 Delivery O2 Flow Rate FiO2 01/27/17 16:00 93 01/27/17 15:31 97.7 94 20 132/76 98 Room Air 01/27/17 13:05 91 18 98 Nasal Cannula 2.0 01/27/17 12:55 91 18 97 Room Air 01/27/17 12:00 82 01/27/17 11:26 96.9 92 20 122/85 100 Room Air 01/27/17 08:46 88 129/82 01/27/17 08:10 98.4 88 20 129/82 98 Room Air 01/27/17 08:00 87 01/27/17 07:55 87 18 98 Room Air 01/27/17 07:46 97 Room Air 01/27/17 07:46 Room Air 01/27/17 07:44 86 18 98 Room Air 01/27/17 04:07 97.8 93 18 133/71 99 Room Air 2.0 01/27/17 04:00 85 01/27/17 01:11 97.2 01/27/17 01:09 78 20 96 Nasal Cannula 2.0 28 01/27/17 01:09 82 20 98 Nasal Cannula 2.0 28 01/27/17 00:15 97.2 97 18 121/74 97 Room Air 2.0 01/27/17 00:00 85 01/26/17 20:25 87 129/78 01/26/17 20:00 84 01/26/17 20:00 98.1 91 20 122/86 99 Room Air 2.0 28 01/26/17 20:00 98.1 91 20 122/86 99 Room Air 01/26/17 19:45 80 20 99 Nasal Cannula 2.0 28 01/26/17 19:30 Nasal Cannula 2.0 28 01/26/17 19:30 75 20 97 Nasal Cannula 2.0 28 01/26/17 19:30 98 Nasal Cannula 2.0 28 Intake and Output 01/27/17 01/28/17 19:00 07:00 Intake Total 970 ml Balance 970 ml Intake Oral 970 ml # Voids 18 # Bowel Movements 1 Laboratory Tests 01/27/17 07:15: Prothrombin Time 29.6H, Prothromb Time International Ratio 2.8H Height (Feet): 6 Height (Inches): 0.00 Weight (Pounds): 162 General Appearance: lethargic EENT: normal ENT inspection Neck: normal alignment Edema: trace edema Skin: normal pigmentation, warm/dry Anurag Salguero Jan 27, 2017 18:24
[2017-01-27 20:00] VITALS: BP 155/86
[2017-01-28] VITALS: BP 148/83
[2017-01-28] MEDS: Albuterol ud Inhalation HHN SCH ×4 (00:31→19:42)
[2017-01-28 04:00] VITALS: BP 140/79
[2017-01-28] MEDS: NovoLOG Insulin Flexpen SUBQ SCH ×3 (06:28→16:30)
[2017-01-28] MEDS: GlipiZIDE 5mg tab ORAL SCH ×2 (06:32→17:00)
[2017-01-28] MEDS: Norco 5mg/325mg tab ORAL PRN ×2 (06:33→17:08)
[2017-01-28 08:23] VITALS: BP 140/93
[2017-01-28 08:28] LABS: INR 2.5 (0.9-1.1)
[2017-01-28] MEDS: Aspirin Baby 81mg NG SCH (08:44)
[2017-01-28] MEDS: Sucralfate 1gm tab ORAL SCH ×3 (08:44→17:00)
[2017-01-28] MEDS: Allopurinol 100mg Tab ORAL SCH ×2 (08:45→17:00)
[2017-01-28] MEDS: Carvedilol 12.5mg tab ORAL SCH (08:46)
[2017-01-28 12:34] VITALS: BP 125/77
--- NOTE | 2017-01-28 13:03 | Pulmonology Progress Note ---
Assessment/Plan Assessment/Plan IMPRESSION non small cell cancer COPD respiratory insufficiency SVC syndrome RUE DVT on coumadin PLAN care noted; ok to dc per pulmonary respiratory care as outlined meds noted supportive care as outlined encourage cough oxygen therapy prognosis guarded outpatient PFT when well oncology followup noted and clearance for discharge noted impression, plan, and exam edited and reviewed in detail care discussed with RN Subjective Allergies: Coded Allergies: BRITTANI INHIBITORS (Unverified Allergy, Unknown, 03/19/15) Subjective some sob and cough no congestion noted on oxygen and stable d/w Dr. Maher Objective Last 24 Hour Vital Signs Date Time Temp Pulse Resp B/P (MAP) Pulse Ox O2 Delivery O2 Flow Rate FiO2 01/28/17 12:34 97.9 87 18 125/77 99 Nasal Cannula 2.0 01/28/17 08:46 92 140/93 01/28/17 08:23 98.1 92 20 140/93 97 Nasal Cannula 2.0 01/28/17 08:00 92 01/28/17 07:28 95 20 100 Room Air 01/28/17 07:27 Room Air 01/28/17 07:12 93 18 100 Room Air 21 01/28/17 07:10 100 Room Air 21 01/28/17 04:00 97.2 18 18 140/79 98 Nasal Cannula 2.0 01/28/17 04:00 98 01/28/17 00:32 82 20 98 Nasal Cannula 2.0 01/28/17 00:31 79 20 97 Nasal Cannula 2.0 01/28/17 00:00 105 01/28/17 00:00 97.9 101 21 148/83 96 Nasal Cannula 2.0 01/28/17 00:00 97.9 101 21 148/83 96 Room Air 2.0 28 01/27/17 21:34 89 155/86 01/27/17 20:00 97.0 89 20 155/86 97 Room Air 01/27/17 20:00 97 01/27/17 19:45 78 20 98 Nasal Cannula 2.0 28 01/27/17 19:30 Nasal Cannula 2.0 28 01/27/17 19:30 74 20 96 Nasal Cannula 2.0 28 01/27/17 19:30 98 Nasal Cannula 2.0 28 01/27/17 16:00 93 01/27/17 15:31 97.7 94 20 132/76 98 Room Air 01/27/17 13:05 91 18 98 Nasal Cannula 2.0 Intake and Output 01/28/17 01/29/17 19:00 07:00 Intake Total 240 ml Balance 240 ml Intake Oral 240 ml # Voids 6 Objective WDWN NAD reduced breath sounds bilaterally without rhonchi or wheeze [id number] without MRG NABS nontender no HSM no CCE nonfocal weak alert and oriented Laboratory Tests 01/28/17 07:15: Prothrombin Time 26.0H, Prothromb Time International Ratio 2.5H Current Medications Medications (Trade) Dose Ordered Sig/Allen Route PRN Reason Start Time Stop Time Status Last Admin Dose Admin Acetaminophen/ Hydrocodone Bitart ([place] 5/325) 1 tab Q6H PRN ORAL For Pain 01/24/17 18:00 01/31/17 17:59 01/28/17 06:33 Albuterol Sulfate (Proventil) 2.5 mg Q6HRT HHN 01/27/17 13:00 01/30/17 05:59 01/28/17 07:18 Allopurinol (Zyloprim) 100 mg BID ORAL 01/25/17 09:00 02/24/17 08:59 01/28/17 08:45 Aspirin (ASA) 81 mg DAILY NG 01/25/17 09:00 02/24/17 08:59 01/28/17 08:44 Atorvastatin Calcium (Lipitor) 40 mg BEDTIME ORAL 01/24/17 21:00 02/23/17 20:59 01/27/17 21:34 Carvedilol (Coreg) 12.5 mg EVERY 12 HOURS ORAL 01/24/17 21:00 02/23/17 20:59 01/28/17 08:46 Clopidogrel Bisulfate (Plavix) 75 mg DAILY ORAL 01/25/17 09:00 02/24/17 08:59 01/28/17 08:52 Dextrose (Dextrose 50%) STAT PRN IV Hypoglycemia 01/24/17 18:15 02/23/17 18:14 Diphenhydramine HCl (Benadryl) 25 mg HSPRN PRN ORAL Insomnia 01/24/17 18:15 02/23/17 18:14 Furosemide (Lasix) 40 mg DAILY IV 01/27/17 09:00 02/26/17 08:59 01/28/17 08:45 Glipizide (Glucotrol) 5 mg BIAC ORAL 01/25/17 06:30 02/24/17 06:29 01/28/17 06:32 Insulin Aspart (NovoLOG) BEFORE MEALS AND HS SUBQ 01/24/17 21:00 02/23/17 20:59 Nitroglycerin (Ntg) 0.4 mg Q5M PRN SL Prn Chest Pain 01/24/17 18:00 02/23/17 17:59 Pantoprazole (Protonix) 40 mg DAILY ORAL 01/25/17 09:00 02/24/17 08:59 01/28/17 08:44 Sucralfate (Carafate) 1 gm FOUR TIMES A DAY ORAL 01/24/17 21:00 02/23/17 20:59 01/28/17 12:03 Warfarin Sodium (Coumadin per pharmacy) 1 ea DAILY PRN MISC Per rx protocol 01/24/17 18:15 02/23/17 18:14 Warfarin Sodium (Coumadin) 8 mg COUMADIN ONCE PO 01/28/17 17:00 01/28/17 17:01 CATIA MCGARRY Jan 28, 2017 13:03
--- NOTE | 2017-01-28 15:19 | General Progress Note ---
Assessment/Plan Assessment/Plan ASSESSMENT AND PLAN: 1. Non-small cell lung cancer, getting chemotherapy in the outpatient clinic as well as radiation at [facility]. 2. Pancytopenia, which has likely developed. The patient is status post chemotherapy now with myelosuppression. 3. History of Right arm deep vein thrombosis, on Coumadin treatment --> INR goal is between 2-3 4. History of superior vena cava syndrome, improved with chemotherapy. Continue his Coumadin at this time. --> patient has cough and is on oxygen 5. Hypertensive heart disease, being seen by Cardiology team 6. Ischemic heart disease, status post stent. 7. Polysubstance abuse. 8. Continue to closely monitor. Subjective Constitutional: Reports: no symptoms HEENT: Reports: no symptoms Cardiovascular: Reports: no symptoms Respiratory: Reports: no symptoms Gastrointestinal/Abdominal: Reports: no symptoms Genitourinary: Reports: no symptoms Neurologic/Psychiatric: Reports: no symptoms Endocrine: Reports: no symptoms Hematologic/Lymphatic: Reports: anemia Allergies: Coded Allergies: BRITTANI INHIBITORS (Unverified Allergy, Unknown, 03/19/15) Subjective on 2L O2, eating, afebrile Objective Last 24 Hour Vital Signs Date Time Temp Pulse Resp B/P (MAP) Pulse Ox O2 Delivery O2 Flow Rate FiO2 01/28/17 13:22 97 20 100 Room Air 01/28/17 13:11 90 18 100 Room Air 01/28/17 12:34 97.9 87 18 125/77 99 Nasal Cannula 2.0 01/28/17 12:00 92 01/28/17 08:46 92 140/93 01/28/17 08:23 98.1 92 20 140/93 97 Nasal Cannula 2.0 01/28/17 08:00 92 01/28/17 07:28 95 20 100 Room Air 21 01/28/17 07:27 Room Air 01/28/17 07:12 93 18 100 Room Air 21 01/28/17 07:10 100 Room Air 21 01/28/17 04:00 97.2 18 18 140/79 98 Nasal Cannula 2.0 01/28/17 04:00 98 01/28/17 00:32 82 20 98 Nasal Cannula 2.0 01/28/17 00:31 79 20 97 Nasal Cannula 2.0 01/28/17 00:00 105 01/28/17 00:00 97.9 101 21 148/83 96 Nasal Cannula 2.0 01/28/17 00:00 97.9 101 21 148/83 96 Room Air 2.0 28 01/27/17 21:34 89 155/86 01/27/17 20:00 97.0 89 20 155/86 97 Room Air 01/27/17 20:00 97 01/27/17 19:45 78 20 98 Nasal Cannula 2.0 28 01/27/17 19:30 Nasal Cannula 2.0 28 01/27/17 19:30 74 20 96 Nasal Cannula 2.0 28 01/27/17 19:30 98 Nasal Cannula 2.0 28 01/27/17 16:00 93 01/27/17 15:31 97.7 94 20 132/76 98 Room Air Intake and Output 01/28/17 01/29/17 19:00 07:00 Intake Total 240 ml Balance 240 ml Intake Oral 240 ml # Voids 6 Laboratory Tests 01/28/17 07:15: Prothrombin Time 26.0H, Prothromb Time International Ratio 2.5H Height (Feet): 6 Height (Inches): 0.00 Weight (Pounds): 148 General Appearance: no apparent distress EENT: PERRL/EOMI Neck: normal alignment, normal inspection Cardiovascular: regular rhythm Respiratory/Chest: respiratory distress Edema: trace edema Skin: warm/dry Anurag Salguero Jan 28, 2017 15:19
[2017-01-28 16:39] VITALS: BP 157/85
--- NOTE | 2017-01-28 16:54 | Cardiac Electrophysiology PN ---
Assessment/Plan Assessment/Plan 1. CP. Ruled out for [place]. Likely due to underlying lung cancer 2. Coronary artery disease S/P Drug-eluting stent. Continue with Lipitor, Plavix, aspirin and Coreg 12.5 bid 3. Paroxysmal atrial fibrillation in sinus rhythm on Coreg and Coumadin per Rx. 4. Hypertension on Coreg 12.5 bid and Lasix 40 po daily. 5. Hyperlipidemia on Lipitor. 6. CHF with diastolic dysfunction.Most recent echo 01/05/17 EF 55%. Change Lasix 40 mg po daily 7. Small cell lung cancer, status post radiation therapy and chemotherapy.Per Dr Martinez 8. History of deep venous thrombosis. Continue Coumadin per pharmacy. 9. History of superior vena caval syndrome. DW RN Subjective Subjective No chest pain or SOB.On Tele in sinus tach. Objective Last 24 Hour Vital Signs Date Time Temp Pulse Resp B/P (MAP) Pulse Ox O2 Delivery O2 Flow Rate FiO2 01/28/17 16:39 98.4 100 18 157/85 97 Nasal Cannula 2.0 01/28/17 16:00 95 01/28/17 13:22 97 20 100 Room Air 21 01/28/17 13:11 90 18 100 Room Air 01/28/17 12:34 97.9 87 18 125/77 99 Nasal Cannula 2.0 01/28/17 12:00 92 01/28/17 08:46 92 140/93 01/28/17 08:23 98.1 92 20 140/93 97 Nasal Cannula 2.0 01/28/17 08:00 92 01/28/17 07:28 95 20 100 Room Air 01/28/17 07:27 Room Air 01/28/17 07:12 93 18 100 Room Air 01/28/17 07:10 100 Room Air 21 01/28/17 04:00 97.2 18 18 140/79 98 Nasal Cannula 2.0 28 01/28/17 04:00 98 01/28/17 00:32 82 20 98 Nasal Cannula 2.0 01/28/17 00:31 79 20 97 Nasal Cannula 2.0 01/28/17 00:00 105 01/28/17 00:00 97.9 101 21 148/83 96 Nasal Cannula 2.0 01/28/17 00:00 97.9 101 21 148/83 96 Room Air 2.0 01/27/17 21:34 89 155/86 01/27/17 20:00 97.0 89 20 155/86 97 Room Air 01/27/17 20:00 97 01/27/17 19:45 78 20 98 Nasal Cannula 2.0 28 01/27/17 19:30 Nasal Cannula 2.0 28 01/27/17 19:30 74 20 96 Nasal Cannula 2.0 28 01/27/17 19:30 98 Nasal Cannula 2.0 28 Intake and Output 01/28/17 01/29/17 19:00 07:00 Intake Total 480 ml Balance 480 ml Intake Oral 480 ml # Voids 16 Laboratory Tests Test 01/28/17 07:15 Prothrombin Time 26.0 SEC (9.30-11.50) H Prothromb Time International Ratio 2.5 (0.9-1.1) H Objective HEAD AND NECK: Showed no JVD LUNGS: Decreased breath sounds. CARDIOVASCULAR: Tachy S1 and S2 with no gallop or murmur. ABDOMEN: Soft and nontender. EXTREMITIES: No pitting edema. DARNELL RICK Jan 28, 2017 16:54
[2017-01-28] MEDS ORDERED: Warfarin Sodium 4mg PO ONE (17:00)
--- NOTE | 2017-01-28 18:38 | General Progress Note ---
Assessment/Plan Assessment/Plan . History of paroxysmal atrial fibrillation. 2. Type 2 diabetes mellitus. 3. Hypertensive cardiovascular disease. 4. Ischemic heart disease. 5. Status post coronary artery bypass stenting. 6. Hyperlipidemia. 7. History of right arm deep vein thrombosis. 8. History of polysubstance abuse. 9. History of superior vena caval syndrome. 10. History of a non-small cell lung cancer. 11. Chronic obstructive pulmonary disease. Stable. DC Home. Subjective Allergies: Coded Allergies: BRITTANI INHIBITORS (Unverified Allergy, Unknown, 03/19/15) Subjective No new c/o Objective Last 24 Hour Vital Signs Date Time Temp Pulse Resp B/P (MAP) Pulse Ox O2 Delivery O2 Flow Rate FiO2 01/28/17 16:39 98.4 100 18 157/85 97 Nasal Cannula 2.0 01/28/17 16:00 95 01/28/17 13:22 97 20 100 Room Air 01/28/17 13:11 90 18 100 Room Air 01/28/17 12:34 97.9 87 18 125/77 99 Nasal Cannula 2.0 01/28/17 12:00 92 01/28/17 08:46 92 140/93 01/28/17 08:23 98.1 92 20 140/93 97 Nasal Cannula 2.0 01/28/17 08:00 92 01/28/17 07:28 95 20 100 Room Air 01/28/17 07:27 Room Air 01/28/17 07:12 93 18 100 Room Air 01/28/17 07:10 100 Room Air 01/28/17 04:00 97.2 18 18 140/79 98 Nasal Cannula 2.0 01/28/17 04:00 98 01/28/17 00:32 82 20 98 Nasal Cannula 2.0 01/28/17 00:31 79 20 97 Nasal Cannula 2.0 01/28/17 00:00 105 01/28/17 00:00 97.9 101 21 148/83 96 Nasal Cannula 2.0 01/28/17 00:00 97.9 101 21 148/83 96 Room Air 2.0 28 01/27/17 21:34 89 155/86 01/27/17 20:00 97.0 89 20 155/86 97 Room Air 01/27/17 20:00 97 01/27/17 19:45 78 20 98 Nasal Cannula 2.0 28 01/27/17 19:30 Nasal Cannula 2.0 28 01/27/17 19:30 74 20 96 Nasal Cannula 2.0 28 01/27/17 19:30 98 Nasal Cannula 2.0 28 Intake and Output 01/28/17 01/29/17 19:00 07:00 Intake Total 600 ml Balance 600 ml Intake Oral 600 ml # Voids 18 Laboratory Tests 01/28/17 07:15: Prothrombin Time 26.0H, Prothromb Time International Ratio 2.5H Height (Feet): 6 Height (Inches): 0.00 Weight (Pounds): 148 Objective Cv RR Lungs B wheezes. Abd SNT. BS + E Min B Edema CHERYL RABAGO Jan 28, 2017 18:38
[2017-01-28] MEDS ORDERED: Carvedilol 25mg Tab ORAL SCH (21:00)
[2017-01-29] MEDS ORDERED: Furosemide 40mg tab ORAL SCH (09:00)
--- NOTE | 2017-01-29 14:37 | Discharge Summary ---
Discharge Summary Hospital Course Date of Admission Jan 24, 2017 at 15:28 Date of Discharge Jan 28, 2017 at 19:55 Admitting Diagnosis acute coronary syndrome HPI Ricardo Beckwith is a 66 year old male who was admitted on Jan 24, 2017 at 15:28 for Acute Coronary Syndrome Discharge Discharge Disposition Patient was discharged to Home with Discharge Diagnoses: Patricia Mcelroy NP Jan 29, 2017 14:37
--- NOTE | 2017-01-30 08:46 | Discharge Summary 2 SIG ---
DATE OF ADMISSION: 01/24/2017 DATE OF DISCHARGE: 01/28/2017 CONSULTANTS: 1. Quinton Bradley M.D. 2. Anurag Salguero M.D. 3. Albino Otero M.D. Brief Hospital Course: The patient is a 66-year-old male with history of coronary artery disease status post stent placement and paroxysmal atrial fibrillation, hypertension, diabetes, and small cell lung CA status post radiation therapy and chemotherapy. The patient presented to [facility] for left-sided chest pain. The patient is getting chemotherapy radiation with Dr. Salguero, received chemotherapy the day prior. That night he experienced left-sided chest pain and presented to ED. On evaluation at ED, troponin was negative. EKG was without any injury. Chest x-ray without CHF. There was leukocytosis of unknown clear source. WBC was 14. INR was 2.7. He was admitted to telemetry to rule out acute coronary syndrome. He was given aspirin and underwent cardiac evaluation. He was given Lipitor, aspirin, Plavix, and Coreg. He has history of DVT and is on Coumadin. The patient had pancytopenia secondary to his chemotherapy. He had history of superior vena cava syndrome, which improved with chemotherapy and was continued on Coumadin. He was given oxygen therapy and respiratory care. He was continued on Lasix. Recent echocardiogram on 01/05/2017 showed ejection fraction 55% with diastolic dysfunction. He was advised outpatient PFT as well as oncology follow up. The patient was eventually discharged home with home health. FINAL DIAGNOSES: 1. Paroxysmal atrial fibrillation. 2. Type 2 diabetes mellitus. 3. Hypertensive cardiovascular disease. 4. Ischemic heart disease. 5. Status post coronary artery bypass stent. 6. Hyperlipidemia. 7. Right arm deep venous thrombosis on Coumadin. 8. Polysubstance abuse. 9. Superior vena cava syndrome. 10. Jij-ifdcu-xvef lung carcinoma. 11. Chronic obstructive pulmonary disease. 12. Acute on chronic congestive heart failure with diastolic dysfunction. 13. Hyperlipidemia. 14. Chest pain, likely due to underlying lung carcinoma. 15. Pancytopenia secondary to chemotherapy. Discharge Disposition: The patient was discharged home with home health. DISCHARGE MEDICATIONS: Refer to med list. Followup: Follow up with Pulmonary for an outpatient PFT and follow up with Oncology for chemotherapy and outpatient radiation therapy. Harsh Maher M.D. I have been assigned to dictate discharge summary on this account and I was not involved in the patient's management. Patricia Mcelroy N.P. DR: SINAI JOB#: [id number] CC: FERNANDEZ
== END 2017-01-28 19:55 | disposition home health service (06) | DRG 861 ==
LOC: EDBD 13:43 → EMR 14:05 → 2E 15:28 → EDBEDREQ 15:37 → 2E 01-25 06:13
DX: G89.3 Neoplasm related pain (acute) (chronic) (principal); I50.33 Acute on chronic diastolic (congestive) heart failure; D61.810 Antineoplastic chemotherapy induced pancytopenia; C34.90 Malignant neoplasm of unspecified part of unspecified bronchus or lung; I48.0 Paroxysmal atrial fibrillation; J44.9 Chronic obstructive pulmonary disease, unspecified; I87.1 Compression of vein; I25.10 Atherosclerotic heart disease of native coronary artery without angina pectoris; Z95.5 Presence of coronary angioplasty implant and graft; Z79.01 Long term (current) use of anticoagulants; E78.5 Hyperlipidemia, unspecified; Z86.718 Personal history of other venous thrombosis and embolism; D46.9 Myelodysplastic syndrome, unspecified; E11.9 Type 2 diabetes mellitus without complications; Z92.3 Personal history of irradiation; Z79.899 Other long term (current) drug therapy; I11.0 Hypertensive heart disease with heart failure; F19.21 Other psychoactive substance dependence, in remission; F17.200 Nicotine dependence, unspecified, uncomplicated
CPT/HCPCS: 36415; 71010; 80048; 80053; 80300; 81003; 82270; 82550; 82607; 82728; 82746; 82962; 83540; 83550; 83880; 84484; 85007; 85025; 85610; 85730; 87086; 93005; 94640; 94664; 94760; 99285; J1815

== ENCOUNTER 2017-03-10 22:09 | Inpatient (IN) | payer MEDICAID, MEDICARE ==
[~2017-03-10] VITALS: Ht 175.3 cm; Wt 81.6 kg
[~2017-03-10 22:09] MED LIST changes: +COUMADIN1 MG ORAL
--- NOTE | 2017-03-10 22:10 | Emergency Room Report ---
History of Present Illness General Chief Complaint: Chest Pain Source: Patient Present Illness HPI Patient is a 66-year-old male presented after increased chest pain. Patient reported having prior history of lung cancer as well as a prior cardiac disease. He states is had 4 stents in the past. Patient was brought in by EMS. He was noted to have SVT on initial rhythm. Patient was given adenosine and was converted to sinus rhythm subsequently. The patient reported having recent cocaine use. Patient said this was several days ago. He had reportedly not been vomiting. He reports having increased shortness of breath. Allergies: Coded Allergies: BRITTANI INHIBITORS (Unverified Allergy, Unknown, 03/19/15) Patient History Past Medical History: see triage record, COPD Reviewed Nursing Documentation: PMH: Agreed, PSxH: Agreed Nursing Documentation-PMH Hx Cardiac Problems: Yes - stents, 2 LA Hx Hypertension: Yes Hx Diabetes: Yes - dm2 Hx Cancer: Yes - lung cancer (currently on chemo and last dose of radiation 2016) Review of Systems All Other Systems: negative except mentioned in HPI Physical Exam Vital Signs Date Time Temp Pulse Resp B/P (MAP) Pulse Ox O2 Delivery O2 Flow Rate FiO2 03/10/17 21:48 96.6 103 17 98/61 99 Room Air Sp02 EP Interpretation: reviewed, normal General Appearance: normal inspection, well appearing, no apparent distress, alert, GCS 15 Head: atraumatic ENT: normal ENT inspection, hearing grossly normal, normal voice Neck: normal inspection, full range of motion, supple, no bony tend Respiratory: normal inspection, lungs clear, normal breath sounds, no respiratory distress, no retraction, no wheezing Cardiovascular #1: regular rate, rhythm, no edema Gastrointestinal: normal inspection, normal bowel sounds, non tender, soft, no guarding, no hernia Genitourinary: no CVA tenderness Musculoskeletal: normal inspection, back normal, normal range of motion Neurologic: normal inspection, alert, oriented x3, responsive, retread technician III-XII nml as tested, speech normal Psychiatric: normal inspection, judgement/insight normal, mood/affect normal Skin: normal inspection, normal color, no rash Medical Decision Making Diagnostic Impression: Primary Impression: Chest pain Additional Impressions: ACS (acute coronary syndrome) SVT (supraventricular tachycardia) Subtherapeutic anticoagulation ER Course Patient presented for chest pain. Differential diagnosis included but was not limited to acute coronary syndrome, pulmonary embolism, pneumonia, aortic dissection, shingles, pneumothorax, aortic dissection, esophageal rupture, pericarditis. Because of complexity of patient's case laboratory testing and imaging studies were ordered. Patient was noted to have multiple previous hospitalizations due to cardiac disease. Patient's symptoms are obviously exacerbated by his using cocaine. The patient given IV Ativan. The patient's case was discussed with Dr. Barth for inpatient management. The patient's coags were noted to be subtherapeutic. Patient was given Lovenox. Patient states that he did take his Coumadin Labs Test 03/10/17 22:21 03/10/17 23:02 03/11/17 01:11 White Blood Count 4.9 K/UL (4.8-10.8) Red Blood Count 3.35 M/UL (4.70-6.10) Hemoglobin 10.1 G/DL (14.2-18.0) Hematocrit 34.6 % (42.0-52.0) Mean Corpuscular Volume 103 FL (80-99) Mean Corpuscular Hemoglobin 30.2 PG (27.0-31.0) Mean Corpuscular Hemoglobin Concent 29.3 G/DL (32.0-36.0) Red Cell Distribution Width 17.5 % (11.6-14.8) Platelet Count 87 K/UL (150-450) Mean Platelet Volume 8.0 FL (6.5-10.1) Neutrophils (%) (Auto) 74.8 % (45.0-75.0) Lymphocytes (%) (Auto) 19.3 % (20.0-45.0) Monocytes (%) (Auto) 4.1 % (1.0-10.0) Eosinophils (%) (Auto) 0.8 % (0.0-3.0) Basophils (%) (Auto) 1.0 % (0.0-2.0) Sodium Level 145 MMOL/L (136-145) Potassium Level 3.7 MMOL/L (3.5-5.1) Chloride Level 109 MMOL/L (98-107) Carbon Dioxide Level 25 MMOL/L (21-32) Anion Gap 11 mmol/L (5-15) Blood Urea Nitrogen 28 mg/dL (7-18) Creatinine 1.9 MG/DL (0.55-1.30) Estimat Glomerular Filtration Rate 43.1 mL/min (>60) Glucose Level 128 MG/DL (74-106) Calcium Level 8.8 MG/DL (8.5-10.1) Total Bilirubin 0.3 MG/DL (0.2-1.0) Aspartate Amino Transf (AST/SGOT) 27 U/L (15-37) Alanine Aminotransferase (ALT/SGPT) 23 U/L (12-78) Alkaline Phosphatase 76 U/L (46-116) Total Creatine Kinase 130 U/L (26-308) Creatine Kinase MB 0.9 NG/ML (0.0-3.6) Creatine Kinase MB Relative Index 0.6 Troponin I 0.015 ng/mL (0.000-0.056) Pro-B-Type Natriuretic Peptide 498 pg/mL (0-125) Total Protein 6.6 G/DL (6.4-8.2) Albumin 3.1 G/DL (3.4-5.0) Globulin 3.5 g/dL Albumin/Globulin Ratio 0.9 (1.0-2.7) Lipase 233 U/L (73-393) Urine Opiates Screen Negative (NEGATIVE) Urine Barbiturates Screen Negative (NEGATIVE) Phencyclidine (PCP) Screen Negative (NEGATIVE) Urine Amphetamines Screen Negative (NEGATIVE) Urine Benzodiazepines Screen Negative (NEGATIVE) Urine Cocaine Screen Positive (NEGATIVE) Urine Marijuana (THC) Screen Negative (NEGATIVE) Prothrombin Time 17.1 SEC (9.30-11.50) Prothromb Time International Ratio 1.6 (0.9-1.1) Activated Partial Thromboplast Time 33 SEC (23-33) EKG Diagnostic Results Rate: normal - 101 Rhythm: NSR ST Segments: no acute changes ASA given to the pt in ED: No Rhythm Strip Diag. Results EP Interpretation: yes Rhythm: NSR, no PVC's, no ectopy Last Vital Signs Date Time Temp Pulse Resp B/P (MAP) Pulse Ox O2 Delivery O2 Flow Rate FiO2 03/10/17 21:48 96.6 103 17 98/61 99 Room Air Status: improved Disposition: ADMITTED INPATIENT Condition: Serious Hussein Pickett Mar 10, 2017 22:10
[2017-03-10 22:54] LABS: MEAN CORPUSCULAR HEMOGLOBIN 30.2 PG (27.0-31.0); MEAN CORPUSCULAR HGB CONC 29.3 G/DL (32.0-36.0); MEAN CORPUSCULAR VOLUME 103 FL (80-99); PLATELET COUNT 87 K/UL (150-450); RED BLOOD COUNT 3.35 M/UL (4.70-6.10); RED CELL DISTRIBUTION WIDTH 17.5 % (11.6-14.8); WHITE BLOOD COUNT 4.9 K/UL (4.8-10.8)
[2017-03-10 22:57] LABS: EOSINOPHILS % (AUTO) 0.8 % (0.0-3.0); LYMPHOCYTES % (AUTO) 19.3 % (20.0-45.0); MONOCYTES % (AUTO) 4.1 % (1.0-10.0); NEUTROPHILS % (AUTO) 74.8 % (45.0-75.0)
[2017-03-10 23:14] LABS: ALANINE AMINOTRANSFERASE 23 U/L (12-78); ANION GAP 11 mmol/L (5-15); ASPARTATE AMINO TRANSFERASE 27 U/L (15-37); CALCIUM 8.8 MG/DL (8.5-10.1); CARBON DIOXIDE 25 MMOL/L (21-32); CHLORIDE 109 MMOL/L (98-107); CKMB 0.9 NG/ML (0.0-3.6); CREATININE 1.9 MG/DL (0.55-1.30); GLOMERULAR FILTRATION RATE 43.1 mL/min (>60); LIPASE 233 U/L (73-393); POTASSIUM 3.7 MMOL/L (3.5-5.1); SODIUM 145 MMOL/L (136-145)
[2017-03-10 23:29] LABS: TOTAL PROTEIN 6.6 G/DL (6.4-8.2)
[2017-03-10 23:33] LABS: ALBUMIN/GLOBULIN RATIO 0.9 (1.0-2.7)
[2017-03-11] VITALS (8 sets, daily range): BP systolic 92–133; BP diastolic 67–85
[2017-03-11] MEDS ORDERED: ADVAIR 250-501 EACH INH (01:24)
[2017-03-11] MEDS ORDERED: HYDRALAZINE HC100 MG ORAL (01:24)
[2017-03-11] MEDS ORDERED: VITAMIN D400 INTLU ORAL (01:24)
[2017-03-11] MEDS ORDERED: NORCO 10-325 T1 EACH ORAL (01:24)
[2017-03-11] MEDS ORDERED: TAMSULOSIN HCL0.4 MG ORAL (01:24)
[2017-03-11] MEDS ORDERED: BRILINTA90 MG PO (01:24)
[2017-03-11] MEDS ORDERED: DIPHENHYDRAMINE25 M1 ORAL (01:24)
[2017-03-11] MEDS ORDERED: NITROSTAT0.4 M1 SL (01:24)
[2017-03-11] MEDS ORDERED: CATAPRES0.2 MG ORAL (01:24)
[2017-03-11] MEDS ORDERED: PANTOPRAZOLE SO40 MG ORAL (01:24)
[2017-03-11 01:38] LABS: INR 1.6 (0.9-1.1); PROTHROMBIN TIME 17.1 SEC (9.30-11.50)
[2017-03-11] MEDS ORDERED: Enoxaparin 60mg Inj SUBQ ONE (02:00)
[2017-03-11] MEDS ORDERED: LORazepam Inj 2mg/ml 1ml IV ONE (02:15)
[2017-03-11] MEDS ORDERED: cloNIDine 0.2mg Tab ORAL PRN (07:45)
[2017-03-11] MEDS ORDERED: Nitroglycerin Subl 0.4mg tab SL PRN (07:45)
[2017-03-11] MEDS: Aspirin Baby 81mg ORAL SCH ×2 (09:00→12:06)
[2017-03-11] MEDS ORDERED: Carvedilol 12.5mg tab ORAL SCH (09:00)
[2017-03-11] MEDS: Advair 250/50 Inhaler - 14 dose INH SCH ×2 (09:28→19:18)
[2017-03-11] MEDS: Allopurinol 100mg Tab ORAL SCH ×2 (09:39→17:10)
[2017-03-11] MEDS: NovoLOG Insulin Flexpen SUBQ SCH ×3 (11:30→20:48)
--- NOTE | 2017-03-11 11:39 | Diagnostic Imaging Report ---
Indication: SOB Technique: One view of the chest Comparison: 01/24/2017 Findings: Lungs and pleural spaces are clear. Heart size is normal. No significant change Impression: No acute process
--- NOTE | 2017-03-11 13:29 | Cardiac Electrophysiology PN ---
Subjective Subjective Dictated. [id number] Objective Last 24 Hour Vital Signs Date Time Temp Pulse Resp B/P (MAP) Pulse Ox O2 Delivery O2 Flow Rate FiO2 03/11/17 11:32 97.5 91 20 119/76 98 Room Air 03/11/17 09:30 95 18 99 Room Air 03/11/17 09:28 94 18 99 Room Air 03/11/17 09:00 95 92/67 03/11/17 08:03 97.7 91 20 92/67 98 Room Air 03/11/17 06:30 97.5 98 20 110/73 95 Room Air 03/11/17 06:24 96.6 90 19 113/70 100 Room Air 03/11/17 06:01 96.6 90 19 113/70 100 Room Air 03/11/17 03:56 96.6 89 19 96/70 100 Room Air 03/11/17 00:57 96.6 91 19 111/72 100 Room Air 03/10/17 22:27 103 17 Room Air 03/10/17 21:48 96.6 103 17 98/61 99 Room Air Intake and Output 03/11/17 03/12/17 19:00 07:00 Intake Total 120 ml Balance 120 ml Intake Oral 120 ml # Voids 1 Laboratory Tests Test 03/10/17 22:21 03/10/17 23:02 03/11/17 01:11 White Blood Count 4.9 K/UL (4.8-10.8) Red Blood Count 3.35 M/UL (4.70-6.10) L Hemoglobin 10.1 G/DL (14.2-18.0) L Hematocrit 34.6 % (42.0-52.0) L Mean Corpuscular Volume 103 FL (80-99) H Mean Corpuscular Hemoglobin 30.2 PG (27.0-31.0) Mean Corpuscular Hemoglobin Concent 29.3 G/DL (32.0-36.0) L Red Cell Distribution Width 17.5 % (11.6-14.8) H Platelet Count 87 K/UL (150-450) L Mean Platelet Volume 8.0 FL (6.5-10.1) Neutrophils (%) (Auto) 74.8 % (45.0-75.0) Lymphocytes (%) (Auto) 19.3 % (20.0-45.0) L Monocytes (%) (Auto) 4.1 % (1.0-10.0) Eosinophils (%) (Auto) 0.8 % (0.0-3.0) Basophils (%) (Auto) 1.0 % (0.0-2.0) Sodium Level 145 MMOL/L (136-145) Potassium Level 3.7 MMOL/L (3.5-5.1) Chloride Level 109 MMOL/L (98-107) H Carbon Dioxide Level 25 MMOL/L (21-32) Anion Gap 11 mmol/L (5-15) Blood Urea Nitrogen 28 mg/dL (7-18) H Creatinine 1.9 MG/DL (0.55-1.30) H Estimat Glomerular Filtration Rate 43.1 mL/min (>60) Glucose Level 128 MG/DL (74-106) H Calcium Level 8.8 MG/DL (8.5-10.1) Total Bilirubin 0.3 MG/DL (0.2-1.0) Aspartate Amino Transf (AST/SGOT) 27 U/L (15-37) Alanine Aminotransferase (ALT/SGPT) 23 U/L (12-78) Alkaline Phosphatase 76 U/L (46-116) Total Creatine Kinase 130 U/L (26-308) Creatine Kinase MB 0.9 NG/ML (0.0-3.6) Creatine Kinase MB Relative Index 0.6 Troponin I 0.015 ng/mL (0.000-0.056) Pro-B-Type Natriuretic Peptide 498 pg/mL (0-125) H Total Protein 6.6 G/DL (6.4-8.2) Albumin 3.1 G/DL (3.4-5.0) L Globulin 3.5 g/dL Albumin/Globulin Ratio 0.9 (1.0-2.7) L Lipase 233 U/L (73-393) Urine Opiates Screen Negative (NEGATIVE) Urine Barbiturates Screen Negative (NEGATIVE) Phencyclidine (PCP) Screen Negative (NEGATIVE) Urine Amphetamines Screen Negative (NEGATIVE) Urine Benzodiazepines Screen Negative (NEGATIVE) Urine Cocaine Screen Positive (NEGATIVE) H Urine Marijuana (THC) Screen Negative (NEGATIVE) Prothrombin Time 17.1 SEC (9.30-11.50) H Prothromb Time International Ratio 1.6 (0.9-1.1) H Activated Partial Thromboplast Time 33 SEC (23-33) DARNELL RICK Mar 11, 2017 13:29
--- NOTE | 2017-03-11 14:55 | Cardiology Report ---
APPROVED REPORT EKG Measurement Heart [id number] MD [id number] Sinus tachycardia with premature atrial complexes Anteroseptal infarct, age undetermined Abnormal ECG
--- NOTE | 2017-03-11 16:30 | History and Physical Report ---
DATE OF ADMISSION: 03/10/2017 CHIEF COMPLAINT: Chest pain. HISTORY OF PRESENT ILLNESS: This is an unfortunate 66-year-old male with multiple medical problems mainly cardiac. Despite that, the patient has a history of polysubstance abuse. He presented to the ER with atypical chest pain. The patient is continuing to use cocaine. He presented with supraventricular tachycardia. The patient received adenosine in the emergency department and converted to sinus tachycardia. He is admitted to telemetry. I spoke with Dr. Pickett, the ER attending. The patient has no regular follow up in the office. He is extremely noncompliant with his care. Also, the patient continues to smoke despite his multiple risk factors. PAST MEDICAL HISTORY: 1. Severe ischemic heart disease. 2. Status post multiple coronary stents. 3. Status post pulmonary emboli. 4. History of deep vein thrombosis. 5. Chronic obstructive pulmonary disease. 6. Type 2 diabetes mellitus. 7. Hypertensive cardiovascular disease. 8. Benign prostatic hypertrophy. 9. Polysubstance abuse. 10. Atypical chest pain. MEDICATIONS: His medication list is extensive but I am not sure that the patient is taking any of his medications. The list is the following, [place] p.r.n., allopurinol, baby aspirin, atorvastatin, Coreg, clonidine, Plavix, diltiazem, Benadryl p.r.n., glipizide, hydralazine, [place] p.r.n., NovoLog FlexPen, nitroglycerin, Protonix, Coumadin (his INR on admission was subtherapeutic), Carafate, tamsulosin, Brilinta, and vitamin D. ALLERGIES: BRITTANI inhibitors. FAMILY HISTORY: Unremarkable. SOCIAL HISTORY: As noted above. The patient has a history of polysubstance abuse. REVIEW OF SYSTEMS: HEENT: Hearing and eyesight are normal. ENDOCRINE: Significant for type 2 diabetes mellitus. RESPIRATORY: He has shortness of breath. CARDIOVASCULAR: He has atypical chest pain. GASTROINTESTINAL: No history of hematochezia, melena, hematemesis, diarrhea, or constipation. GENITOURINARY: He has dysuria and nocturia x3 to 4. NEUROLOGICAL: No history of stroke, syncope, or Parkinson disease. PHYSICAL EXAMINATION: GENERAL: This is an elderly well-nourished and well-developed male. The patient is somnolent. VITAL SIGNS: Blood pressure 110/73, pulse 98, respirations 20, and temperature 97.5 axillary. HEENT: The head is normocephalic and atraumatic. Pupils are equal, round, and reactive to light and accommodation consensually. NECK: Supple. Trachea midline. There was no lymphadenopathy or thyromegaly. LUNGS: Few bilateral wheezes. HEART: Regular rate and rhythm without rubs, murmurs, or gallops. ABDOMEN: Soft and nontender. Bowel sounds were active. EXTREMITIES: No clubbing, cyanosis, or edema. NEUROLOGICAL: He is alert and oriented x4. Cranial nerves II through XII are intact. LABORATORY AND ANCILLARY DATA: Hemoglobin 10.1. Serum chemistry BUN 28 and creatinine 1.9. Electrolytes are within normal limits. Troponin level 0.015. Urine toxicology screen is positive for cocaine. INR is 1.6. EKG, sinus tachycardia with premature atrial complexes. ASSESSMENT: 1. Atypical chest pain. 2. Severe ischemic heart disease. 3. Status post multiple coronary stents. 4. Status post pulmonary emboli. 5. History of deep vein thrombosis. 6. Chronic obstructive pulmonary disease. 7. Type 2 diabetes mellitus. 8. Hypertensive cardiovascular disease. 9. Benign prostatic hypertrophy. 10. Polysubstance abuse. 11. History of lung cancer. PLAN: 1. Telemetry. 2. Cardiology consult. 3. Rule out acute myocardial ischemia protocol. 4. Continue home medications. 5. Avoid the narcotic use due to the patient's cocaine use. Harsh Maher M.D. DR: ENEDINA JOB#: [id number] CC:
[2017-03-11] MEDS ORDERED: Warfarin Sod 10 MG, Warfarin Sod 2.5 MG ORAL ONE ×2 (17:00)
--- NOTE | 2017-03-11 19:00 | Consultation ---
DATE OF CONSULTATION: 03/11/2017 CARDIOLOGY CONSULTATION REFERRING PHYSICIAN: Harsh Maher M.D. REASON FOR CONSULTATION: Recurrent supraventricular tachycardia. HISTORY OF PRESENT ILLNESS: The patient is a 66-year-old gentleman with history of hypertension and coronary artery disease with history of drug-eluting stent placement as well as history of paroxysmal atrial fibrillation. The patient also has history of SVT a few months ago when he was at [facility]. The patient was brought to the emergency room after he watched the baseball game and he developed sudden onset of palpitation. When the paramedics arrived, they found him in supraventricular tachycardia that was probably converted to sinus rhythm by adenosine. The patient was admitted and a Cardiac Electrophysiology consultation was obtained for further evaluation. PAST MEDICAL HISTORY: Include: 1. Hypertension. 2. Paroxysmal atrial fibrillation. 3. Coronary artery disease. 4. History of drug-eluting stents. 5. Hyperlipidemia. 6. Congestive heart failure with diastolic dysfunction with echocardiogram on 01/05/2017, EF of 55%. 7. Small cell lung cancer, status radiation and chemotherapy that was started in August 2016. 8. History of DVT, on Coumadin. 9. History of superior vena cava syndrome. SOCIAL HISTORY: He lives at home. Does not smoke or drink alcohol. FAMILY HISTORY: Noncontributory. REVIEW OF SYSTEMS: His review of systems was thoroughly performed and was negative other than what was mentioned in the history of present illness. PHYSICAL EXAMINATION: VITAL SIGNS: Blood pressure is 119/76, pulse 91, respirations 20, and temperature 97.1 degrees. HEAD AND NECK: Shows no JVD. LUNGS: Clear. CARDIOVASCULAR: Shows regular S1 and S2 with no gallop or murmur. ABDOMEN: Soft. EXTREMITIES: There is no pitting edema. LABORATORY DATA: White count 4.9, hematocrit 10.1, hematocrit 34.7, and platelet count of 87. Sodium 144, potassium 3.7, BUN of 20, creatinine 1.9, and glucose of 120. Troponin is negative. BNP is 498. ASSESSMENT AND PLAN: 1. Recurrent supraventricular tachycardia, this is second episode. It likely terminated with adenosine suggestive of AV kenan dependent mechanism. I will increase the Coreg to 25 mg b.i.d. The patient likely would benefit from electrophysiology study that can be arranged as an outpatient. 2. History of coronary artery disease and drug-eluting stent. Denies any chest pain. Aspirin, Coreg, Plavix, and Lipitor. 3. Paroxysmal atrial fibrillation on Coumadin per pharmacy 12.5 mg daily. 4. Hypertension. Continue current heart failure medication including Coreg. His ejection fraction is within normal range. 5. History of non-small cell lung cancer, status post radiation therapy and chemotherapy per Dr. Salguero. 6. History of superior vena cava syndrome. 7. History of deep venous thrombosis, on Coumadin. 8. Hyperlipidemia, on Lipitor. Thank you very much doctor for allowing me to participate in the care of this patient. Please do not hesitate to contact me for any questions regarding my evaluation. Quinton Bradley M.D. DR: Shamar JOB#: [id number] CC:
[2017-03-11] MEDS: Carvedilol 25mg Tab ORAL SCH (20:45)
[2017-03-11] MEDS ORDERED: Tamsulosin 0.4mg cap ORAL SCH (21:00)
[2017-03-12] VITALS: BP 109/68
[2017-03-12 04:00] VITALS: BP 122/74
[2017-03-12] MEDS: NovoLOG Insulin Flexpen SUBQ SCH ×2 (06:54→11:30)
[2017-03-12 08:21] VITALS: BP 117/76
[2017-03-12 08:23] LABS: INR 2.7 (0.9-1.1); PROTHROMBIN TIME 28.2 SEC (9.30-11.50)
[2017-03-12] MEDS: Advair 250/50 Inhaler - 14 dose INH SCH (08:23)
[2017-03-12] MEDS: Carvedilol 25mg Tab ORAL SCH (09:23)
[2017-03-12] MEDS: Allopurinol 100mg Tab ORAL SCH (09:23)
[2017-03-12 11:28] VITALS: BP 129/77
--- NOTE | 2017-03-12 14:28 | General Progress Note ---
Assessment/Plan Assessment/Plan CP - atypical. AMI ruled out. Related to SVT, which is related to his cocaine abuse. DC home. Subjective Allergies: Coded Allergies: BRITTANI INHIBITORS (Unverified Allergy, Unknown, 03/19/15) Subjective No c/o. No CP/SOB. Objective Last 24 Hour Vital Signs Date Time Temp Pulse Resp B/P (MAP) Pulse Ox O2 Delivery O2 Flow Rate FiO2 03/12/17 11:28 97.7 80 20 129/77 97 Room Air 03/12/17 09:23 81 117/76 03/12/17 08:25 81 20 95 Room Air 21 03/12/17 08:24 75 20 95 Room Air 21 03/12/17 08:21 97.9 77 20 117/76 97 Room Air 03/12/17 08:00 85 03/12/17 04:00 81 03/12/17 04:00 98.2 92 20 122/74 96 03/12/17 00:00 81 03/12/17 00:00 97.9 83 20 109/68 97 Nasal Cannula 03/11/17 20:45 90 131/88 03/11/17 20:00 90 03/11/17 20:00 98.2 94 16 133/85 100 Room Air 03/11/17 19:16 92 20 99 Room Air 21 03/11/17 19:15 90 20 98 Room Air 21 03/11/17 16:00 89 03/11/17 15:23 98.1 90 20 126/83 97 Room Air Intake and Output 03/12/17 03/13/17 19:00 07:00 Intake Total 250 ml Balance 250 ml Intake Oral 250 ml Laboratory Tests 03/12/17 07:50: Prothrombin Time 28.2H, Prothromb Time International Ratio 2.7H Height (Feet): 5 Height (Inches): 9.00 Weight (Pounds): 180 Objective Cv RR Lungs Incresed Exp. Abd SNT. BS + E No CCE CHERYL RABAGO Mar 12, 2017 14:28
--- NOTE | 2017-03-12 15:29 | Cardiac Electrophysiology PN ---
Assessment/Plan Assessment/Plan 1. Recurrent supraventricular tachycardia, this is second episode. It terminated with adenosine suggestive of AV kenan dependent mechanism. Continue Coreg 25 mg b.i.d. Will schedule electrophysiology study as outpatient. 2. History of coronary artery disease and drug-eluting stent. Denies any chest pain. Aspirin, Coreg, Plavix, and Lipitor. 3. Paroxysmal atrial fibrillation on Coumadin per pharmacy 4. Hypertension. Continue Coreg. His ejection fraction is within normal range. 5. History of non-small cell lung cancer, status post radiation therapy and chemotherapy per Dr. Salguero. 6. History of superior vena cava syndrome. 7. History of deep venous thrombosis, on Coumadin. 8. Hyperlipidemia, on Lipitor. Subjective Subjective Comfortable in NAD. No chest pain or SOB. No recurrence of SVT. Objective Last 24 Hour Vital Signs Date Time Temp Pulse Resp B/P (MAP) Pulse Ox O2 Delivery O2 Flow Rate FiO2 03/12/17 12:00 72 03/12/17 11:28 97.7 80 20 129/77 97 Room Air 03/12/17 09:23 81 117/76 03/12/17 08:25 81 20 95 Room Air 21 03/12/17 08:24 75 20 95 Room Air 21 03/12/17 08:21 97.9 77 20 117/76 97 Room Air 03/12/17 08:00 85 03/12/17 04:00 81 03/12/17 04:00 98.2 92 20 122/74 96 03/12/17 00:00 81 03/12/17 00:00 97.9 83 20 109/68 97 Nasal Cannula 03/11/17 20:45 90 131/88 03/11/17 20:00 90 03/11/17 20:00 98.2 94 16 133/85 100 Room Air 03/11/17 19:16 92 20 99 Room Air 21 03/11/17 19:15 90 20 98 Room Air 21 03/11/17 16:00 89 Intake and Output 03/12/17 03/13/17 19:00 07:00 Intake Total 490 ml Balance 490 ml Intake Oral 490 ml # Voids 2 Laboratory Tests Test 03/12/17 07:50 Prothrombin Time 28.2 SEC (9.30-11.50) H Prothromb Time International Ratio 2.7 (0.9-1.1) H Objective HEAD AND NECK: Shows no JVD. LUNGS: Clear. CARDIOVASCULAR: Shows regular S1 and S2 with no gallop or murmur. ABDOMEN: Soft. EXTREMITIES: There is no pitting edema. DARNELL RICK Mar 12, 2017 15:28
[2017-03-12 15:42] VITALS: BP 139/75
--- NOTE | 2017-03-12 20:05 | Consultation ---
Consult Note Consult Note DATE OF CONSULTATION: 03/12/17 HEMATOLOGY/ONCOLOGY CONSULTATION CONSULTING PHYSICIAN: Anurag Salguero M.D. REQUESTING PHYSICIAN: Miguel Ángel Cho M.D. REASON FOR CONSULTATION: Evaluation of non-small cell lung cancer, getting radiation/chemo. IDENTIFICATION DATA: Dear Dr. Harsh Maher. The patient is a pleasant 66-year-old male, who I follow in the Oncology clinic. He has a past medical history significant for non-small cell lung cancer diagnosed at [facility], has been getting chemotherapy as well as radiation, most recent chemotherapy was about week ago, received chemotherapy with Dr. Jona Salguero, after which improved, and has been doing better and at this time has received radiation at [facility], and at this time presents with tachycardia. Evaluated by Cardiology team noticed to have paroxysmal atrial fibrillation, on Coumadin for anticoag PAST MEDICAL HISTORY: History of paroxysmal atrial fibrillation, type 2 diabetes mellitus, hypertensive cardiovascular disease, ischemic heart disease, status post coronary artery bypass stenting, hyperlipidemia, history of right arm deep vein thrombosis, history of polysubstance abuse, history of superior vena cava syndrome, history of a non-small cell lung cancer, and chronic obstructive pulmonary disease. MEDICATIONS: Multiple medications including hydralazine, allopurinol, hydrochlorothiazide, Brilinta, Coumadin, glipizide, baby aspirin, Lipitor ALLERGIES: BRITTANI inhibitors. SOCIAL HISTORY: The patient lives at home. HABITS: Cigarette smoker. No illicit drug use. FAMILY HISTORY: Unremarkable. REVIEW OF SYSTEMS: Reviewed, as per history of present illness. PE: General Appearance: A+O x3, NAD HEENT: normocephalic, atraumatic Neck: non-tender, normal alignment Respiratory/Chest: chest wall non-tender, lungs clear Cardiovascular/Chest: normal peripheral pulses, normal rate Abdomen: normal bowel sounds, non tender Extremities: normal range of motion Laboratory Tests Test 03/12/17 07:50 Prothrombin Time 28.2 SEC (9.30-11.50) H Prothromb Time International Ratio 2.7 (0.9-1.1) H ASSESSMENT AND PLAN: 1. Non-small cell lung cancer, getting chemotherapy in the outpatient clinic as well as radiation at [facility]. ==> continue o/p followup 2. Pancytopenia, which has likely developed. The patient is status post chemotherapy now with suppression. --> improved 3. Right arm deep vein thrombosis, on Coumadin treatment 4. History of superior vena cava syndrome, improved with chemotherapy. Continue his Coumadin at this time. 5. Hypertensive heart disease, being seen by Cardiology team, Mirna 6. Ischemic heart disease, status post stent. 7. Polysubstance abuse. 8. Continue to closely monitor. Anurag Salguero. Mar 12, 2017 20:05
--- NOTE | 2017-03-13 08:51 | Discharge Summary ---
Discharge Summary Hospital Course Date of Admission Mar 11, 2017 at 00:17 Date of Discharge Mar 12, 2017 at 16:05 Admitting Diagnosis chest pain,super ventricular tachy substance abuse HPI Ricardo Beckwith is a 66 year old male who was admitted on Mar 11, 2017 at 00:17 for Chest Pain,Super Ventricular Tac Substance Abuse Hospital Course [id number] Discharge Discharge Disposition Patient was discharged to Home (01) Discharge Diagnoses: Patricia Mcelroy NP Mar 13, 2017 08:51
--- NOTE | 2017-03-13 16:00 | Discharge Summary 2 SIG ---
DATE OF ADMISSION: 03/11/2017 DATE OF DISCHARGE: 03/12/2017 CONSULTANTS: 1. Quinton Bradley M.D. 2. Anurag Salguero M.D. BRIEF HOSPITAL COURSE: The patient is a 66-year-old male with history of hypertension, coronary artery disease with history of drug-eluting stent placement as well as history of paroxysmal atrial fibrillation. He had a SVT few months ago. He was brought into emergency room after he watched a baseball game and suddenly developed onset of palpitations. Paramedics arrived. They found him in supraventricular tachycardia and was given adenosine. He was reported to be noncompliant with medications and has no followups with PMD. He has history of polysubstance abuse and continues to use cocaine. EKG done on arrival to ED showed normal sinus rhythm. INR was 1.6. He admitted not taking his Coumadin. He was given Lovenox. He has history of non-small cell lung CA, diagnosed at [facility] and was getting chemotherapy as well as radiation. Pancytopenia improved. The patient is status post chemotherapy. He was followed by Dr. Bradley and Dr. Salguero. He continued to be in sinus rhythm and was continued on Coreg 25 mg b.i.d. He was given aspirin, Plavix, and Lipitor. Advised compliance with use of medication and stressed need to continue with Coumadin therapy. He was eventually discharged home. FINAL DIAGNOSES: 1. Atypical chest pain. Acute myocardial infarction was ruled out. Chest pain was due to supraventricular tachycardia, related to cocaine abuse. 2. Non-small cell lung carcinoma, on chemotherapy. 3. Pancytopenia. 4. History of superior vena cava syndrome. 5. Hypertensive heart disease. 6. Ischemic heart disease, status post stent. 7. Polysubstance abuse. 8. Hyperlipidemia. 9. History of deep venous thrombosis on Coumadin. 10. Recurrent supraventricular tachycardia. DISPOSITION: The patient was discharged home. DISCHARGE MEDICATIONS: Refer to medication list. FOLLOWUP: The patient was advised to follow up in office in a week. Harsh Maher M.D. I have been assigned to dictate discharge summary on this account and I was not involved in the patient's management. Patricia Mcelroy N.P. DR: TREVON JOB#: [id number] CC: FERNANDEZ
== END 2017-03-12 16:05 | disposition home or self-care (01) | DRG 201 ==
LOC: EDBD 22:09 → EMR 22:45 → EDBEDREQ 23:22 → 2E 03-11 00:17 → EDBEDREQ 03-11 05:12
DX: I47.1 Supraventricular tachycardia (principal); D61.818 Other pancytopenia; I24.9 Acute ischemic heart disease, unspecified; J44.9 Chronic obstructive pulmonary disease, unspecified; C34.90 Malignant neoplasm of unspecified part of unspecified bronchus or lung; I11.0 Hypertensive heart disease with heart failure; I50.30 Unspecified diastolic (congestive) heart failure; F14.188 Cocaine abuse with other cocaine-induced disorder; Z95.5 Presence of coronary angioplasty implant and graft; Z86.711 Personal history of pulmonary embolism; Z86.718 Personal history of other venous thrombosis and embolism; N40.0 Benign prostatic hyperplasia without lower urinary tract symptoms; F19.10 Other psychoactive substance abuse, uncomplicated; I25.10 Atherosclerotic heart disease of native coronary artery without angina pectoris; Z91.14 Patient's other noncompliance with medication regimen; R07.89 Other chest pain; Z79.899 Other long term (current) drug therapy; E78.5 Hyperlipidemia, unspecified; Z79.01 Long term (current) use of anticoagulants; E11.9 Type 2 diabetes mellitus without complications; Z88.8 Allergy status to other drugs, medicaments and biological substances; Z92.3 Personal history of irradiation; I48.0 Paroxysmal atrial fibrillation; F17.200 Nicotine dependence, unspecified, uncomplicated
CPT/HCPCS: 36415; 71010; 80053; 80307; 82550; 82553; 82962; 83690; 83880; 84484; 85025; 85610; 85730; 93005; 94640; 99285; J1815

== ENCOUNTER 2017-06-25 08:06 | Outpatient (CLI) | payer MEDICARE, MEDICAID ==
[~2017-06-25] VITALS: Ht 175.3 cm; Wt 68.0 kg
[~2017-06-25 08:06] MED LIST changes: +CATAPRES0.2 MG ORAL; +NORCO 10-325 T1 EACH ORAL; +PANTOPRAZOLE SO40 MG ORAL; +TAMSULOSIN HCL0.4 MG ORAL; +VITAMIN D400 INTLU ORAL
[2017-06-25 08:44] LABS: BASOPHILS % (AUTO) 0.6 % (0.0-2.0); EOSINOPHILS % (AUTO) 1.8 % (0.0-3.0); HEMATOCRIT 43.8 % (42.0-52.0); HEMOGLOBIN 14.1 G/DL (14.2-18.0); LYMPHOCYTES % (AUTO) 23.7 % (20.0-45.0); MEAN CORPUSCULAR VOLUME 98 FL (80-99); MONOCYTES % (AUTO) 8.9 % (1.0-10.0); NEUTROPHILS % (AUTO) 65.1 % (45.0-75.0); PLATELET COUNT 166 K/UL (150-450); RED BLOOD COUNT 4.48 M/UL (4.70-6.10); RED CELL DISTRIBUTION WIDTH 16.6 % (11.6-14.8); WHITE BLOOD COUNT 4.7 K/UL (4.8-10.8)
[2017-06-25 08:50] LABS: ANION GAP 9 mmol/L (5-15); BLOOD UREA NITROGEN 26 mg/dL (7-18); CALCIUM 9.5 MG/DL (8.5-10.1); CARBON DIOXIDE 27 MMOL/L (21-32); CHLORIDE 104 MMOL/L (98-107); CREATININE 2.1 MG/DL (0.55-1.30); POTASSIUM 4.1 MMOL/L (3.5-5.1); SODIUM 140 MMOL/L (136-145)
[2017-06-25 08:53] VITALS: BP 148/95
[2017-06-25 08:55] VITALS: BP 155/77
[2017-06-25 09:01] LABS: INR 1.5 (0.9-1.1)
--- NOTE | 2017-06-25 10:25 | Diagnostic Imaging Report ---
Indication: Pleural effusion. Technique: XRAY Chest 1v Comparison: 03/10/2017 Findings: Heart size and mediastinal contours are within normal limits and stable compared to the prior exam. There is minimal linear atelectasis at the right base. No focal airspace consolidation. No pleural effusion. No pneumothorax. No acute osseous abnormality seen. Impression: Minimal atelectasis/scarring at the right base. No focal airspace consolidation, pleural effusion or pneumothorax.
--- NOTE | 2017-06-25 11:00 | Pre-Procedure Note/Attestation ---
Pre-Procedure Note/Attestation Complete Prior to Procedure Planned Procedure: right Procedure Narrative: US guided thoracentesis Indications for Procedure Pre-Operative Diagnosis: pleural effusion Attestation I attest that I discussed the nature of the procedure; its benefits; risks and complications; and alternatives (and the risks and benefits of such alternatives ), prior to the procedure, with the patient (or the patient's legal accounts payable representative). I attest that, if there was a reasonable possibility of needing a blood transfusion, the patient (or the patient's legal accounts payable representative) was given the [facility] standardized written summary, pursuant to the [place] Blood Safety Act ([place] Health and Safety Code # 1645, as amended). I attest that I re-evaluated the patient just prior to the surgery and that there has been no change in the patient's H&P, except as documented below: Raj Monson M.D. Jun 25, 2017 11:00
[2017-06-25 11:55] VITALS: BP 132/95
--- NOTE | 2017-06-25 12:23 | Diagnostic Imaging Report ---
Indication: Pleural effusion history of lung cancer. Technique: Focused grayscale imaging of the right chest Comparison: Correlation made to concurrent chest radiograph. FINDINGS/IMPRESSION: There is no significant pleural fluid. No safe pocket to perform thoracentesis.
== END 2017-06-25 12:15 | disposition home or self-care (01) ==
LOC: ULS 08:06
DX: J90 Pleural effusion, not elsewhere classified (principal); Z85.118 Personal history of other malignant neoplasm of bronchus and lung; J98.11 Atelectasis
CPT/HCPCS: 36415; 71045; 76604; 80048; 85025; 85610; 85730

== ENCOUNTER 2017-07-09 12:55 | Inpatient (IN) | payer MEDICAID, MEDICARE ==
[~2017-07-09] VITALS: Ht 175.3 cm; Wt 68.0 kg
[2017-07-09 13:36] VITALS: BP 159/81
--- NOTE | 2017-07-09 14:13 | Diagnostic Imaging Report ---
Indication: Shortness of breath Technique: One view of the chest Comparison: June 25, 2017 Findings: There is opacification of the right inferior hemithorax, presumably by large pleural effusion. Nodular opacity is seen in the right midlung as well as some atelectasis at the right lung base. These are new findings since prior study. The right upper lung, left lung and pleural space are clear. Impression: Interim development of large right pleural effusion, since prior study of 14 days earlier Right midlung nodule and basilar atelectasis, not evident previously
[2017-07-09 14:25] LABS: BASOPHILS % (AUTO) 0.6 % (0.0-2.0); EOSINOPHILS % (AUTO) 1.5 % (0.0-3.0); HEMATOCRIT 39.3 % (42.0-52.0); HEMOGLOBIN 12.9 G/DL (14.2-18.0); LYMPHOCYTES % (AUTO) 10.3 % (20.0-45.0); MEAN CORPUSCULAR VOLUME 94 FL (80-99); MONOCYTES % (AUTO) 3.7 % (1.0-10.0); NEUTROPHILS % (AUTO) 83.9 % (45.0-75.0); PLATELET COUNT 178 K/UL (150-450); RED BLOOD COUNT 4.16 M/UL (4.70-6.10); WHITE BLOOD COUNT 5.7 K/UL (4.8-10.8)
[2017-07-09 14:35] LABS: ANION GAP 7 mmol/L (5-15); BLOOD UREA NITROGEN 20 mg/dL (7-18); CARBON DIOXIDE 30 MMOL/L (21-32); CHLORIDE 102 MMOL/L (98-107); CREATININE 1.5 MG/DL (0.55-1.30); POTASSIUM 3.3 MMOL/L (3.5-5.1); SODIUM 139 MMOL/L (136-145)
[2017-07-09] MEDS ORDERED: Morphine Sulfate 4mg/ml Inj IVP ONE (14:45)
[2017-07-09 14:49] LABS: ALANINE AMINOTRANSFERASE 16 U/L (12-78); ALBUMIN 3.6 G/DL (3.4-5.0); ALBUMIN/GLOBULIN RATIO 0.9 (1.0-2.7); ALKALINE PHOSPHATASE 80 U/L (46-116); ASPARTATE AMINO TRANSFERASE 23 U/L (15-37); BILIRUBIN,DIRECT 0.2 MG/DL (0.0-0.3); BILIRUBIN,TOTAL 1.3 MG/DL (0.2-1.0); CKMB 2.3 NG/ML (0.0-3.6); CREATINE KINASE 143 U/L (26-308)
[2017-07-09 15:00] VITALS: BP 156/93
[2017-07-09 15:07] LABS: APPEARANCE,URINE CLEAR; BILIRUBIN, URINE NEGATIVE (NEGATIVE); COLOR,URINE PALE YELLOW; GLUCOSE, URINE (UA) NEGATIVE (NEGATIVE); KETONES,URINE NEGATIVE (NEGATIVE); LEUKOCYTE ESTERASE ,URINE NEGATIVE (NEGATIVE); NITRITE,URINE NEGATIVE (NEGATIVE); PH,URINE 7 (4.5-8.0); PROTEIN,URINE NEGATIVE (NEGATIVE); UROBILINOGEN,URINE NORMAL MG/DL (0.0-1.0)
--- NOTE | 2017-07-09 15:31 | Emergency Room Report ---
History of Present Illness General Chief Complaint: Dyspnea/Respdistress Source: Patient Present Illness HPI 67-year-old male presents ED with shortness of breath. Referred here by cardiology Dr. Salazar. Patient noted to have shortness of breath, blood pressure elevated, tachycardic. Patient notes history of lung cancer and has been told he has "fluid in his lungs". Patient was here in February because of the same problem. The scheduled have the fluid removed but states it was not enough. Denies any chest pain. Denies any fevers or chills. Denies cough. Denies any leg swelling. No other aggravating relieving factors. Denies any other associated symptoms Allergies: Coded Allergies: BRITTANI INHIBITORS (Unverified Allergy, Unknown, 03/19/15) Patient History Past Medical History: DM, NM, AFib, COPD, CVA/TIA, other - lung cancer Past Surgical History: none Pertinent Family History: none Social History: Denies: smoking, alcohol use, drug use Immunizations: UTD Reviewed Nursing Documentation: PMH: Agreed, PSxH: Agreed Nursing Documentation-PMH Past Medical History: No History, Except For Hx Cardiac Problems: Yes - NM, A-fib (post ablation in 2015) Hx Hypertension: Yes - high cholesterol Hx Pacemaker: No Hx COPD: Yes Hx Diabetes: Yes - type 2 Hx Cancer: Yes - Lung Hx Gastrointestinal Problems: No Hx Dialysis: No History Of Psychiatric Problem: No Hx Neurological Problems: Yes Hx Cerebrovascular Accident: Yes - 06/2016 Hx Seizures: No Review of Systems All Other Systems: negative except mentioned in HPI Physical Exam Vital Signs Date Time Temp Pulse Resp B/P (MAP) Pulse Ox O2 Delivery O2 Flow Rate FiO2 07/09/17 13:05 97.8 119 20 159/81 99 Room Air 97.9 Sp02 EP Interpretation: reviewed, normal General Appearance: no apparent distress, alert, GCS 15, non-toxic Head: normocephalic, atraumatic Eyes: bilateral eye normal inspection, bilateral eye PERRL ENT: hearing grossly normal, normal pharynx, no angioedema, normal voice Neck: full range of motion, supple/symm/no masses Respiratory: chest non-tender, normal breath sounds, decreased breath sounds, speaking full sentences Cardiovascular #1: regular rate, rhythm, no edema Cardiovascular #2: 2+ carotid (R), 2+ carotid (L), 2+ radial (R), 2+ radial (L) , 2+ dorsalis pedis (R), 2+ dorsalis pedis (L) Gastrointestinal: normal bowel sounds, non tender, soft, non-distended, no guarding, no rebound Rectal: deferred Genitourinary: normal inspection, no CVA tenderness Musculoskeletal: back normal, gait/station normal, normal range of motion, non- tender Neurologic: alert, oriented x3, responsive, motor strength/tone normal, sensory intact, speech normal Psychiatric: judgement/insight normal, memory normal, mood/affect normal, no suicidal/homicidal ideation Reflexes: 3+ bicep (R), 3+ bicep (L), 3+ tricep (R), 3+ tricep (L), 3+ knee (R) , 3+ knee (L) Skin: normal color, no rash, warm/dry, well hydrated Lymphatic: no adenopathy Medical Decision Making Diagnostic Impression: Primary Impression: Shortness of breath Additional Impressions: Pleural effusion Renal insufficiency ER Course Hospital Course 67-year-old male presents to ED with shortness of breath. History of lung cancer Differential diagnoses include: Pneumonia, CHF exacerbation, pneumothorax, fluid overload Clinical course Patient placed on stretcher. On surveillance system monitor. After initial history and physical, I ordered labs, IV fluids, EKG, chest x-ray, blood cultures, UA. Patient placed on nasal cannula with O2 saturation improving Labs -no leukocytosis, hemoglobin/hematocrit stable, Cr 1.5, lactate okay troponins negative CXR -large R pleural effusion. R midlung nodule EKG - sinus tachycardia, no acute ischemic chaignes interpreted by me abx given Case discussed with Dr. Otero and he agreed to the patient to his service for further care and support. Dr Salazar aware of findings I feel this is a highly complex case requiring extensive working including EKG/ Rhythm strip, Xray/CT/US, Blood/urine lab work, repeat exams while in ED, and administration of strong opiates/narcotics for pain control, admission to hospital or close patient follow up. Diagnosis - Shortness of breath, pleural effusion, renal insufficiency Patient admitted to telemetry in serious condition Labs Test 07/09/17 14:00 07/09/17 14:30 White Blood Count 5.7 K/UL (4.8-10.8) Red Blood Count 4.16 M/UL (4.70-6.10) Hemoglobin 12.9 G/DL (14.2-18.0) Hematocrit 39.3 % (42.0-52.0) Mean Corpuscular Volume 94 FL (80-99) Mean Corpuscular Hemoglobin 31.0 PG (27.0-31.0) Mean Corpuscular Hemoglobin Concent 32.9 G/DL (32.0-36.0) Red Cell Distribution Width 16.0 % (11.6-14.8) Platelet Count 178 K/UL (150-450) Mean Platelet Volume 8.1 FL (6.5-10.1) Neutrophils (%) (Auto) 83.9 % (45.0-75.0) Lymphocytes (%) (Auto) 10.3 % (20.0-45.0) Monocytes (%) (Auto) 3.7 % (1.0-10.0) Eosinophils (%) (Auto) 1.5 % (0.0-3.0) Basophils (%) (Auto) 0.6 % (0.0-2.0) Sodium Level 139 MMOL/L (136-145) Potassium Level 3.3 MMOL/L (3.5-5.1) Chloride Level 102 MMOL/L (98-107) Carbon Dioxide Level 30 MMOL/L (21-32) Anion Gap 7 mmol/L (5-15) Blood Urea Nitrogen 20 mg/dL (7-18) Creatinine 1.5 MG/DL (0.55-1.30) Estimat Glomerular Filtration Rate 56.6 mL/min (>60) Glucose Level 113 MG/DL (74-106) Lactic Acid Level 1.20 mmol/L (0.66-2.22) Calcium Level 9.0 MG/DL (8.5-10.1) Total Bilirubin 1.3 MG/DL (0.2-1.0) Direct Bilirubin 0.2 MG/DL (0.0-0.3) Aspartate Amino Transf (AST/SGOT) 23 U/L (15-37) Alanine Aminotransferase (ALT/SGPT) 16 U/L (12-78) Alkaline Phosphatase 80 U/L (46-116) Total Creatine Kinase 143 U/L (26-308) Creatine Kinase MB 2.3 NG/ML (0.0-3.6) Creatine Kinase MB Relative Index 1.6 Troponin I 0.009 ng/mL (0.000-0.056) Pro-B-Type Natriuretic Peptide 562 pg/mL (0-125) Total Protein 7.8 G/DL (6.4-8.2) Albumin 3.6 G/DL (3.4-5.0) Globulin 4.2 g/dL Albumin/Globulin Ratio 0.9 (1.0-2.7) Urine Color Pale yellow Urine Appearance Clear Urine pH 7 (4.5-8.0) Urine Specific [place] 1.005 (1.005-1.035) Urine Protein Negative (NEGATIVE) Urine Glucose (UA) Negative (NEGATIVE) Urine Ketones Negative (NEGATIVE) Urine Occult Blood Negative (NEGATIVE) Urine Nitrite Negative (NEGATIVE) Urine Bilirubin Negative (NEGATIVE) Urine Urobilinogen Normal MG/DL (0.0-1.0) Urine Leukocyte Esterase Negative (NEGATIVE) EKG Diagnostic Results Rate: tachycardiac Rhythm: NSR ST Segments: no acute changes ASA given to the pt in ED: No Rhythm Strip Diag. Results EP Interpretation: yes Rhythm: NSR, no PVC's, no ectopy Chest X-Ray Diagnostic Results Chest X-Ray Diagnostic Results : Chest X-Ray Ordered: Yes # of Views/Limited/Complete: 1 View Indication: Shortness of Breath EP Interpretation: Yes Interpretation: no consolidation, no pneumothorax, other - large R pleural effusion Impression: Other - pleural effusion Electronically Signed by: Electronically signed by Gustavo Brenner MD Last Vital Signs Date Time Temp Pulse Resp B/P (MAP) Pulse Ox O2 Delivery O2 Flow Rate FiO2 07/09/17 14:55 97.0 07/09/17 13:36 109 22 159/81 100 Room Air Status: improved Disposition: ADMITTED INPATIENT Condition: Serious Referrals: NON PHYSICIAN (PCP) GUSTAVO BRENNER M.D. Jul 09, 2017 15:31
[2017-07-09] MEDS ORDERED: Carvedilol 12.5mg tab ORAL ONE ×2 (15:45→22:30)
[2017-07-09 16:00] VITALS: BP 144/105
[2017-07-09 17:00] VITALS: BP 121/84
--- NOTE | 2017-07-09 18:16 | Cardiac Electrophysiology PN ---
Subjective Subjective 67-year-old male sent from my office for shortness of breath, ACC HTN and tachycardia. Patient notes history of lung cancer and has been told he has "fluid in his lungs" [facility], Dr Kamara and prince Objective Last 24 Hour Vital Signs Date Time Temp Pulse Resp B/P (MAP) Pulse Ox O2 Delivery O2 Flow Rate FiO2 07/09/17 18:03 107 19 103/60 100 Room Air 07/09/17 17:00 107 18 121/84 99 Room Air 07/09/17 16:00 119 16 144/105 99 Room Air 07/09/17 15:59 97.0 07/09/17 15:52 113 173/104 07/09/17 15:00 117 19 156/93 100 Room Air 07/09/17 14:55 97.0 07/09/17 13:36 97.0 109 22 159/81 100 Room Air 97.0 07/09/17 13:36 22 07/09/17 13:05 97.8 119 20 159/81 99 Room Air 97.9 Laboratory Tests Test 07/09/17 14:00 07/09/17 14:30 White Blood Count 5.7 K/UL (4.8-10.8) Red Blood Count 4.16 M/UL (4.70-6.10) L Hemoglobin 12.9 G/DL (14.2-18.0) L Hematocrit 39.3 % (42.0-52.0) L Mean Corpuscular Volume 94 FL (80-99) Mean Corpuscular Hemoglobin 31.0 PG (27.0-31.0) Mean Corpuscular Hemoglobin Concent 32.9 G/DL (32.0-36.0) Red Cell Distribution Width 16.0 % (11.6-14.8) H Platelet Count 178 K/UL (150-450) Mean Platelet Volume 8.1 FL (6.5-10.1) Neutrophils (%) (Auto) 83.9 % (45.0-75.0) H Lymphocytes (%) (Auto) 10.3 % (20.0-45.0) L Monocytes (%) (Auto) 3.7 % (1.0-10.0) Eosinophils (%) (Auto) 1.5 % (0.0-3.0) Basophils (%) (Auto) 0.6 % (0.0-2.0) Sodium Level 139 MMOL/L (136-145) Potassium Level 3.3 MMOL/L (3.5-5.1) L Chloride Level 102 MMOL/L (98-107) Carbon Dioxide Level 30 MMOL/L (21-32) Anion Gap 7 mmol/L (5-15) Blood Urea Nitrogen 20 mg/dL (7-18) H Creatinine 1.5 MG/DL (0.55-1.30) H Estimat Glomerular Filtration Rate 56.6 mL/min (>60) Glucose Level 113 MG/DL (74-106) H Lactic Acid Level 1.20 mmol/L (0.66-2.22) Calcium Level 9.0 MG/DL (8.5-10.1) Total Bilirubin 1.3 MG/DL (0.2-1.0) H Direct Bilirubin 0.2 MG/DL (0.0-0.3) Aspartate Amino Transf (AST/SGOT) 23 U/L (15-37) Alanine Aminotransferase (ALT/SGPT) 16 U/L (12-78) Alkaline Phosphatase 80 U/L (46-116) Total Creatine Kinase 143 U/L (26-308) Creatine Kinase MB 2.3 NG/ML (0.0-3.6) Creatine Kinase MB Relative Index 1.6 Troponin I 0.009 ng/mL (0.000-0.056) Pro-B-Type Natriuretic Peptide 562 pg/mL (0-125) H Total Protein 7.8 G/DL (6.4-8.2) Albumin 3.6 G/DL (3.4-5.0) Globulin 4.2 g/dL Albumin/Globulin Ratio 0.9 (1.0-2.7) L Urine Color Pale yellow Urine Appearance Clear Urine pH 7 (4.5-8.0) Urine Specific [place] 1.005 (1.005-1.035) Urine Protein Negative (NEGATIVE) Urine Glucose (UA) Negative (NEGATIVE) Urine Ketones Negative (NEGATIVE) Urine Occult Blood Negative (NEGATIVE) Urine Nitrite Negative (NEGATIVE) Urine Bilirubin Negative (NEGATIVE) Urine Urobilinogen Normal MG/DL (0.0-1.0) Urine Leukocyte Esterase Negative (NEGATIVE) DARNELL RICK Jul 09, 2017 18:16
[2017-07-09] MEDS ORDERED: ATORVASTATIN CA80 MG ORAL (18:29)
[2017-07-09] MEDS ORDERED: WARFARIN SODIUM10 MG ORAL (18:34)
[2017-07-09] MEDS ORDERED: ALLOPURINOL100 M1 ORAL (18:37)
[2017-07-09] MEDS ORDERED: CATAPRES0.2 MG ORAL (18:38)
[2017-07-09] MEDS ORDERED: DIPHENHYDRAMINE25 M1 ORAL (18:38)
[2017-07-09] MEDS ORDERED: GLIPIZIDE5 MG ORAL (18:39)
[2017-07-09] MEDS ORDERED: HYDRALAZINE HC100 MG ORAL (18:40)
[2017-07-09] MEDS ORDERED: NORCO 10-325 T1 EACH ORAL (18:41)
[2017-07-09] MEDS ORDERED: HYDROCHLOROTHIA25 MG ORAL (18:42)
[2017-07-09] MEDS ORDERED: NITROSTAT0.4 M1 SL (18:43)
[2017-07-09] MEDS ORDERED: VITAMIN D1000 UNI1 ORAL (18:44)
[2017-07-09 20:00] VITALS: BP 137/89
--- NOTE | 2017-07-09 21:47 | Consultation ---
DATE OF CONSULTATION: 07/09/2017 PULMONARY CONSULTATION CONSULTING PHYSICIAN: Albino Otero M.D. REASON FOR ADMISSION: Pleural effusion. HISTORY OF PRESENT ILLNESS: This is a 67-year-old male, very pleasant, who presents to the medical center. The patient with noted history of shortness of breath. The patient also with noted pleural effusion. The patient has had prior evaluation with concern for malignancy and underwent thoracentesis. The patient was seen in the office by myself back approximately one month ago with noted pleural effusion. The patient did undergo a CT of the chest and PET scan on 05/08/2017. The patient with recent resection apparently and was under the care of Oncology. The patient with multiple medical problems and multiple medical issues. PAST MEDICAL HISTORY: Notable for hypertension, benign prostatic hyperplasia, non-small cell lung cancer with pleural effusion, hypercholesterolemia, gout, and asthma. PAST SURGICAL HISTORY: Notable for [place] with prior stents and prior ablation. ALLERGIES: Reviewed. MEDICATIONS: Reviewed. FAMILY HISTORY: Both parents are . SOCIAL HISTORY: The patient is single, has two children, lives alone. He is retired. He does have a longstanding history of smoking back in 1965, but quit in 2017. REVIEW OF SYSTEMS: Also notable for some heart disease, diabetes, and hypertension. The patient is on anticoagulation. Review of systems is otherwise negative. PHYSICAL EXAMINATION: GENERAL: A well-developed male. VITAL SIGNS: Blood pressure 156/93, saturation 100%, heart rate 117, temperature 97 degrees, and respiratory rate 22. HEENT: Negative. NECK: Supple. Oropharynx is otherwise moist. LUNGS: With significantly reduced breath sounds, right lung. CARDIAC: S1 and S2. Regular rate and rhythm. The patient is tachycardic without murmurs, rubs, or gallops. ABDOMEN: Soft, nontender, and nondistended. EXTREMITIES: No cyanosis, clubbing, or edema. NEUROLOGIC: Grossly nonfocal. LABORATORY DATA: Reviewed. White count 5.7, hematocrit 39, Chemistry noted and reviewed. Sodium 139, potassium 3.3, BUN 20, and creatinine 1.5. IMPRESSION: 1. Recurrent right pleural effusion with concern for malignancy. 2. History of lung cancer. 3. History of prior resection. 4. Evidence of sinus tachycardia. 5. History of atrial fibrillation, paroxysmal. 6. History of chronic obstructive pulmonary disease/asthma. 7. History of cerebrovascular accident. 8. History of diabetes. 9. Myocardial infarction. RECOMMENDATIONS: Supportive care. Attempt to proceed with thoracentesis, and monitor imagin. We will follow clinically for change and recommend further pending reevaluation. Cardiac evaluation for rate control and we will stabilize further and assist with any disposition. Albino Otero M.D. DR: Wilder JOB#: [id number] CC: FERNANDEZ
[2017-07-09] MEDS: Advair 250/50 Inhaler - 14 dose INH SCH (22:30)
[2017-07-09] MEDS ORDERED: Atorvastatin 80mg tab ORAL ONE (22:30)
[2017-07-09] MEDS ORDERED: Tamsulosin 0.4mg cap ORAL ONE (22:37)
[2017-07-09] MEDS: HydrALAZINE 50mg tab ORAL SCH (23:47)
[2017-07-09] MEDS: cloNIDine 0.2mg Tab ORAL SCH (23:47)
[2017-07-09] MEDS: HYDROcodone/Acetamin 10/325 tab ORAL PRN (23:55)
[2017-07-10] VITALS: BP 135/72
[2017-07-10 04:00] VITALS: BP 102/66
[2017-07-10] MEDS: cloNIDine 0.2mg Tab ORAL SCH ×3 (06:00→21:23)
[2017-07-10] MEDS: HydrALAZINE 50mg tab ORAL SCH ×3 (06:33→21:20)
[2017-07-10] MEDS: GlipiZIDE 5mg tab ORAL SCH ×2 (06:33→17:38)
[2017-07-10 08:00] VITALS: BP 124/78
[2017-07-10] MEDS ORDERED: Carvedilol 12.5mg tab ORAL SCH (09:00)
--- NOTE | 2017-07-10 09:14 | Pulmonology Progress Note ---
Assessment/Plan Assessment/Plan IMPRESSION: 1. Recurrent right pleural effusion with concern for malignancy. 2. History of lung cancer. 3. History of prior resection. 4. Evidence of sinus tachycardia. 5. History of atrial fibrillation, paroxysmal. 6. History of chronic obstructive pulmonary disease/asthma. 7. History of cerebrovascular accident. 8. History of diabetes. 9. Myocardial infarction. PLAN tap US ordered d/w patient who consented monitor fluid status follow up cytology oncology follow up recommended impression, plan, and exam edited and reviewed in detail care discussed with RN Subjective Allergies: Coded Allergies: BRITTANI INHIBITORS (Unverified Allergy, Unknown, 03/19/15) Subjective reduced sob on oxygen no distress care reviewed Objective Last 24 Hour Vital Signs Date Time Temp Pulse Resp B/P (MAP) Pulse Ox O2 Delivery O2 Flow Rate FiO2 07/10/17 06:33 102/66 07/10/17 04:00 97.3 100 20 102/66 97 97.3 07/10/17 04:00 96 07/10/17 00:00 97.9 104 20 135/72 97 97.9 07/10/17 00:00 109 07/09/17 23:47 137/89 07/09/17 23:47 137/89 07/09/17 22:30 101 137/89 07/09/17 20:00 108 07/09/17 20:00 97.3 101 20 137/89 96 97.3 07/09/17 18:03 107 19 103/60 100 Room Air 07/09/17 17:00 107 18 121/84 99 Room Air 07/09/17 16:00 119 16 144/105 99 Room Air 07/09/17 15:59 97.0 07/09/17 15:52 113 173/104 07/09/17 15:00 117 19 156/93 100 Room Air 07/09/17 14:55 97.0 07/09/17 13:36 97.0 109 22 159/81 100 Room Air 97.0 07/09/17 13:36 22 07/09/17 13:05 97.8 119 20 159/81 99 Room Air 97.9 Intake and Output 07/09/17 07/10/17 19:00 07:00 Intake Total 150 ml 440 ml Output Total 525 ml Balance -375 ml 440 ml Intake Oral 440 ml IV Total 150 ml Output Urine Total 525 ml # Voids 2 2 # Bowel Movements 1 Objective GENERAL: A well-developed male. NAD HEENT: Negative. NECK: Supple. Oropharynx is otherwise moist. LUNGS: With significantly reduced breath sounds, right lung. otherwise no rhonchi or wheeze CARDIAC: S1 and S2. Regular rate and rhythm. without murmurs, rubs, or gallops. ABDOMEN: Soft, nontender, and nondistended. no HSM EXTREMITIES: No cyanosis, clubbing, or edema. NEUROLOGIC: Grossly nonfocal. Laboratory Tests 07/09/17 14:00: White Blood Count 5.7, Red Blood Count 4.16L, Hemoglobin 12.9L, Hematocrit 39.3L , Mean Corpuscular Volume 94, Mean Corpuscular Hemoglobin 31.0, Mean Corpuscular Hemoglobin Concent 32.9, Red Cell Distribution Width 16.0H, Platelet Count 178, Mean Platelet Volume 8.1, Neutrophils (%) (Auto) 83.9H, Lymphocytes (%) (Auto) 10.3L, Monocytes (%) (Auto) 3.7, Eosinophils (%) (Auto) 1.5, Basophils (%) (Auto) 0.6, Sodium Level 139, Potassium Level 3.3L, Chloride Level 102, Carbon Dioxide Level 30, Anion Gap 7, Blood Urea Nitrogen 20H, Creatinine 1.5H, Estimat Glomerular Filtration Rate 56.6, Glucose Level 113H, Lactic Acid Level 1.20, Calcium Level 9.0, Total Bilirubin 1.3H, Direct Bilirubin 0.2, Aspartate Amino Transf (AST/SGOT) 23, Alanine Aminotransferase ( ALT/SGPT) 16, Alkaline Phosphatase 80, Total Creatine Kinase 143, Creatine Kinase MB 2.3, Creatine Kinase MB Relative Index 1.6, Troponin I 0.009, Pro-B- Type Natriuretic Peptide 562H, Total Protein 7.8, Albumin 3.6, Globulin 4.2, Albumin/Globulin Ratio 0.9L 07/09/17 14:30: Urine Color Pale yellow, Urine Appearance Clear, Urine pH 7, Urine Specific [place] 1.005, Urine Protein Negative, Urine Glucose (UA) Negative, Urine Ketones Negative, Urine Occult Blood Negative, Urine Nitrite Negative, Urine Bilirubin Negative, Urine Urobilinogen Normal, Urine Leukocyte Esterase Negative Current Medications Medications (Trade) Dose Ordered Sig/Allen Route PRN Reason Start Time Stop Time Status Last Admin Dose Admin Acetaminophen/ Hydrocodone Bitart ([place] 10/325) 1 tab Q4H PRN ORAL For Pain 07/09/17 22:30 07/16/17 22:29 07/09/17 23:55 Allopurinol (Zyloprim) 100 mg BID ORAL 07/10/17 09:00 08/09/17 08:59 Aspirin (ASA) 81 mg DAILY ORAL 07/10/17 09:00 08/09/17 08:59 Atorvastatin Calcium (Lipitor) 80 mg BEDTIME ORAL 07/10/17 21:00 08/09/17 20:59 Carvedilol (Coreg) 12.5 mg EVERY 12 HOURS ORAL 07/10/17 09:00 08/09/17 08:59 Clonidine HCl (Catapres tab) 0.2 mg EVERY 8 HOURS ORAL 07/09/17 22:30 08/08/17 22:29 07/09/17 23:47 Diphenhydramine HCl (Benadryl) 25 mg HSPRN PRN ORAL Insomnia 07/09/17 22:30 08/08/17 22:29 Glipizide (Glucotrol) 5 mg BIAC ORAL 07/10/17 06:30 08/09/17 06:29 07/10/17 06:33 Hydralazine HCl (Apresoline) 100 mg Q8HR ORAL 07/09/17 22:30 08/08/17 22:29 07/10/17 06:33 Hydrochlorothiazide (Hydrodiuril) 25 mg DAILY ORAL 07/10/17 09:00 08/09/17 08:59 Non-Formulary Medication (Non-Formulary Med) 90 ea BID ORAL 07/09/17 22:30 08/08/17 22:29 UNV Pantoprazole (Protonix) 40 mg ACBREAKFAST ORAL 07/10/17 06:30 08/09/17 06:29 07/10/17 06:33 Salmeterol Xinafoate/ Fluticasone (Advair 250/50 Diskus) 1 puffs BID INH 07/09/17 22:30 08/08/17 22:29 Tamsulosin HCl (Flomax) 0.4 mg BEDTIME ORAL 07/10/17 21:00 08/09/17 20:59 Vitamin D (Vitamin D) 1,000 intlu DAILY ORAL 07/10/17 09:00 08/09/17 08:59 Warfarin Sodium (Coumadin per pharmacy) 1 ea DAILY PRN MISC Per rx protocol 07/09/17 22:30 08/08/17 22:29 CATIA BENJAMIN Jul 10, 2017 09:13
[2017-07-10] MEDS: Advair 250/50 Inhaler - 14 dose INH SCH ×2 (09:18→19:53)
[2017-07-10] MEDS: Vitamin D 1000 IU Tab ORAL SCH (09:29)
[2017-07-10] MEDS: Aspirin Baby 81mg ORAL SCH (09:32)
[2017-07-10] MEDS: Allopurinol 100mg Tab ORAL SCH ×2 (09:33→17:38)
[2017-07-10 09:37] LABS: INR 1.5 (0.9-1.1)
[2017-07-10] MEDS: HYDROcodone/Acetamin 10/325 tab ORAL PRN ×2 (11:51→21:22)
--- NOTE | 2017-07-10 11:56 | Pre-Procedure Note/Attestation ---
Pre-Procedure Note/Attestation Complete Prior to Procedure Planned Procedure: right Procedure Narrative: US guided thoracentesis Indications for Procedure Pre-Operative Diagnosis: pleural effusion Attestation I attest that I discussed the nature of the procedure; its benefits; risks and complications; and alternatives (and the risks and benefits of such alternatives ), prior to the procedure, with the patient (or the patient's legal outside medical sales representative). I attest that, if there was a reasonable possibility of needing a blood transfusion, the patient (or the patient's legal outside medical sales representative) was given the [facility] standardized written summary, pursuant to the [place] Blood Safety Act ([place] Health and Safety Code # 1645, as amended). I attest that I re-evaluated the patient just prior to the surgery and that there has been no change in the patient's H&P, except as documented below: ELIZABETH REED M.D. Jul 10, 2017 11:56
[2017-07-10 12:00] VITALS: BP 113/69
--- NOTE | 2017-07-10 12:02 | Diagnostic Imaging Report ---
Indications: Pleural effusion Technique: Ultrasound used to localize optimal puncture site. Sterile prepping and draping chest. Local anesthesia with 1% lidocaine. Under real-time ultrasound guidance, puncture pleural space using thoracentesis needle. Stylet removed. Catheter placed to vacuum bottle suction. Total 1200 milliliters of slightly cloudy yellow fluid aspirated. Patient tolerated procedure well, without immediate complication. Findings: Followup sonography demonstrates complete resolution of pleural fluid. Impression: Successful ultrasound-guided thoracentesis, yielding 1200 milliliters of fluid
--- NOTE | 2017-07-10 14:56 | Cardiac Electrophysiology PN ---
Subjective Subjective Dictated and DW Dr Mendes [id number] Objective Last 24 Hour Vital Signs Date Time Temp Pulse Resp B/P (MAP) Pulse Ox O2 Delivery O2 Flow Rate FiO2 07/10/17 13:33 113/69 07/10/17 12:00 97.2 97 20 113/69 99 Nasal Cannula 1.0 97.2 07/10/17 09:31 107 129/75 07/10/17 09:23 114 20 99 Room Air 21 07/10/17 09:18 114 20 99 Nasal Cannula 1.0 24 07/10/17 08:00 97.8 100 22 124/78 96 Room Air 97.8 07/10/17 08:00 112 07/10/17 06:33 102/66 07/10/17 04:00 97.3 100 20 102/66 97 97.3 07/10/17 04:00 96 07/10/17 00:00 97.9 104 20 135/72 97 97.9 07/10/17 00:00 109 07/09/17 23:47 137/89 07/09/17 23:47 137/89 07/09/17 22:30 101 137/89 07/09/17 20:00 108 07/09/17 20:00 97.3 101 20 137/89 96 97.3 07/09/17 18:03 107 19 103/60 100 Room Air 07/09/17 17:00 107 18 121/84 99 Room Air 07/09/17 16:00 119 16 144/105 99 Room Air 07/09/17 15:59 97.0 07/09/17 15:52 113 173/104 07/09/17 15:00 117 19 156/93 100 Room Air 07/09/17 14:55 97.0 Intake and Output 07/09/17 07/10/17 19:00 07:00 Intake Total 150 ml 440 ml Output Total 525 ml Balance -375 ml 440 ml Intake Oral 440 ml IV Total 150 ml Output Urine Total 525 ml # Voids 2 2 # Bowel Movements 1 Laboratory Tests Test 07/10/17 09:10 Prothrombin Time 15.4 SEC (9.30-11.50) H Prothromb Time International Ratio 1.5 (0.9-1.1) H DARNELL RICK Jul 10, 2017 14:56
--- NOTE | 2017-07-10 15:38 | Diagnostic Imaging Report ---
Indication: Post thoracentesis Technique: One view of the chest Comparison: 07/09/2017 Findings: Interim resolution of previously demonstrated large right pleural effusion. No pneumothorax demonstrated. Band of atelectasis at the right lung base is more apparent than on the prior study. Pleural spaces are currently clear. The left lung and pleural space, right upper lung are currently clear. Heart size is normal. Impression: Resolved right pleural effusion, status post thoracentesis. No radiographically evident complication Right basilar atelectasis
[2017-07-10 16:35] VITALS: BP 128/83
[2017-07-10] MEDS ORDERED: Warfarin Sodium 5mg ORAL ONE (17:00)
[2017-07-10 20:00] VITALS: BP 142/73
--- NOTE | 2017-07-10 21:15 | Consultation ---
DATE OF CONSULTATION: 07/10/2017 CARDIOLOGY CONSULTATION CONSULTING PHYSICIAN: Quinton Bradley M.D. REFERRING PHYSICIAN: Harsh Maher M.D. REASON FOR CONSULTATION: Shortness of breath and tachycardia. HISTORY OF PRESENT ILLNESS: The patient is a very pleasant 67-year-old gentleman under my Cardiology care with history of hypertension, [id number] diabetes, history of coronary artery disease, history of stent placement in 08/2015 as well as 03/2016 at [facility]. The patient also has history of supraventricular tachycardia and underwent successful ablation by me on 03/30/2017 at [facility]. The patient also has a history of non-small cell lung cancer as well as superior vena cava syndrome under chemotherapy per Dr. Salguero, this is twice a week. The patient also is on Coumadin for DVT and paroxysmal atrial fibrillation. I saw the patient in the office when they noted that he was quite short of breath and tachycardic as well and also had accelerated hypertension. The patient was sent to the emergency room when he was evaluated and found to have a large right-sided pleural effusion. The patient underwent successful thoracentesis of 1.5 liters from the right chest by Dr. Ricardo Meade. At the time of my evaluation, the patient is feeling better. PAST MEDICAL HISTORY: As mentioned above. SOCIAL HISTORY: He lives at home. Does not smoke or drink alcohol. FAMILY HISTORY: Noncontributory. REVIEW OF SYSTEMS: Review of systems was performed and was negative other than what was mentioned in the history of present illness. LABORATORY DATA: His labs show white count of 5.7, hemoglobin 12.9, hematocrit 39.3, and platelet count is 178. Sodium 139, potassium is 3.3, BUN of 20, creatinine 1.5, and glucose of 113. His troponin is negative. ASSESSMENT AND PLAN: 1. Increasing shortness of breath due to the large right-sided pleural refusion. The patient underwent thoracentesis today of 1.5 liters. The patient will be under the pulmonary care of Dr. Otero. for malignancy. 2. History of atrioventricular kenan reentrant tachycardia, status post successful ablation by me at [facility] in 03/2017 . 3. Coronary artery disease with history of drug-eluting stent. Continue aspirin and Brilinta 90 mg b.i.d. as well as Coreg and Lipitor. 4. Hypertension, on Coreg 12.5 mg b.i.d., hydrochlorothiazide 25 mg, clonidine 0.2 mg t.i.d. and hydralazine 100 mg t.i.d. that will be resumed. 5. Paroxysmal atrial fibrillation, on Coreg and Coumadin. 6. Non-small cell lung cancer, status post radiation and chemotherapy, who follows up by Dr. Slaguero as an outpatient. 7. Renal failure. Further evaluation by Dr. Maher. Creatinine improved from 2 to 1.5. Thank you very much, Dr. Maher, for allowing me to participate in the care of this patient. Please do not hesitate to contact me if you have any questions regarding my evaluation. Quinton Bradley M.D. DR: JONATHAN JOB#: [id number] CC:
[2017-07-10] MEDS: Atorvastatin 80mg tab ORAL SCH (21:20)
[2017-07-10] MEDS: Carvedilol 12.5mg tab ORAL SCH (21:20)
[2017-07-10] MEDS: Tamsulosin 0.4mg cap ORAL SCH (21:21)
[2017-07-11] VITALS: BP 97/70
--- NOTE | 2017-07-11 02:00 | History and Physical Report ---
DATE OF ADMISSION: 07/09/2017 NOTE: POOR AUDIO CHIEF COMPLAINT: Shortness of breath. HISTORY OF PRESENT ILLNESS: This is a 67-year-old male, who was referred by Dr. Bradley to the hospital's emergency department for admission. The patient has multiple medical problems. He has been admitted to the hospital numerous times. The patient already had a thoracentesis with 1.2 liters removed already. PAST MEDICAL HISTORY: 1. History of lung CA. 2. Coronary artery disease. 3. History of superior vena cava syndrome. 4. Chronic obstructive pulmonary disease. 5. Superior Vena Cava Syndrome. 6. History of atrial fibrillation, paroxysmal. 7. Status post CVA. 8. Type 2 diabetes mellitus. MEDICATIONS: Include allopurinol, baby aspirin, atorvastatin, Coreg, nifedipine, Benadryl, glipizide, hydralazine, hydrochlorothiazide, [place], morphine, Protonix, and Coumadin. ALLERGIES: BRITTANI inhibitors. SOCIAL HISTORY: The patient lives at home. Habits, significant for history of cigarette smoking. FAMILY HISTORY: Unremarkable. REVIEW OF SYSTEMS: HEENT: Hearing and eyesight are normal. ENDOCRINE: Significant for type 2 diabetes mellitus. PHYSICAL EXAMINATION: GENERAL: This is an elderly well-developed and well-nourished male, who is in no acute distress. VITAL SIGNS: Blood pressure 113/69, pulse 97 and regular, respirations 20, and temperature 97.2. HEENT: The head is normocephalic and atraumatic. Pupils are equal, round, and reactive to light and accommodation consensually. NECK: Supple. Trachea midline. There was no lymphadenopathy or thyromegaly. He has jugular venous distention at 45 degrees. LUNGS: Clear to auscultation and percussion. HEART: Regular rate and rhythm without rubs, murmurs, or gallops. ABDOMEN: Soft and nontender. Bowel sounds were active. EXTREMITIES: No clubbing, cyanosis, or edema. NEUROLOGICAL: He is alert and oriented x4. Cranial nerves II through XII are intact. LABORATORY AND ANCILLARY DATA: CBC within normal limits. BMP, creatinine 1.5, BUN 20, and potassium 3.3. Total bilirubin 1.3. Imaging reports, chest x-ray prior to the thoracentesis shows right mid lung nodule and basilar atelectasis. Also shows large right pleural effusion. ASSESSMENT: 1. Large right pleural effusion. Rule out malignant effusion versus transudate due to CHF. History of lung CA. 2. Coronary artery disease. 3. History of superior vena cava syndrome. 4. Chronic obstructive pulmonary disease. 5. Superior Vena Cava Syndrome. 6. History of atrial fibrillation, paroxysmal. 7. Status post CVA. 8. Type 2 diabetes mellitus. PLAN: Right thoracentesis had been obtained today, awaiting the analysis for cell content etc. Rule out malignant effusion. Pulmonary consult and Cardiology consults have been dictated already. Harsh Maher M.D. DR: HUBER JOB#: [id number] CC: FERNANDEZ
[2017-07-11] MEDS: cloNIDine 0.2mg Tab ORAL SCH ×3 (06:00→21:47)
[2017-07-11 06:06] VITALS: BP 126/88
[2017-07-11] MEDS: HydrALAZINE 50mg tab ORAL SCH ×3 (06:22→21:43)
[2017-07-11] MEDS: GlipiZIDE 5mg tab ORAL SCH ×2 (06:22→17:22)
[2017-07-11 08:00] VITALS: BP 138/78
[2017-07-11 08:14] LABS: BASOPHILS % (AUTO) 0.3 % (0.0-2.0); EOSINOPHILS % (AUTO) 2.1 % (0.0-3.0); HEMATOCRIT 35.4 % (42.0-52.0); HEMOGLOBIN 11.8 G/DL (14.2-18.0); LYMPHOCYTES % (AUTO) 16.9 % (20.0-45.0); MEAN CORPUSCULAR VOLUME 95 FL (80-99); MONOCYTES % (AUTO) 2.6 % (1.0-10.0); NEUTROPHILS % (AUTO) 78.2 % (45.0-75.0); PLATELET COUNT 156 K/UL (150-450); RED BLOOD COUNT 3.72 M/UL (4.70-6.10); RED CELL DISTRIBUTION WIDTH 16.5 % (11.6-14.8); WHITE BLOOD COUNT 4.5 K/UL (4.8-10.8)
[2017-07-11 08:22] LABS: INR 1.3 (0.9-1.1)
--- NOTE | 2017-07-11 08:23 | Pulmonology Progress Note ---
Assessment/Plan Assessment/Plan IMPRESSION: 1. Recurrent right pleural effusion with concern for malignancy. 2. History of lung cancer. 3. History of prior resection. 4. Evidence of sinus tachycardia. 5. History of atrial fibrillation, paroxysmal. 6. History of chronic obstructive pulmonary disease/asthma. 7. History of cerebrovascular accident. 8. History of diabetes. 9. Myocardial infarction. PLAN follow up cytology and culture monitor fluid status monitor imaging for change oncology follow up recommended impression, plan, and exam edited and reviewed in detail care discussed with RN Subjective ROS Limited/Unobtainable: Yes Allergies: Coded Allergies: BRITTANI INHIBITORS (Unverified Allergy, Unknown, 03/19/15) Subjective reduced sob on oxygen no distress care reviewed and patient comfortable post tap Objective Last 24 Hour Vital Signs Date Time Temp Pulse Resp B/P (MAP) Pulse Ox O2 Delivery O2 Flow Rate FiO2 07/11/17 06:22 126/88 07/11/17 06:06 89 126/88 97 07/11/17 06:00 126/88 07/11/17 04:00 102 07/11/17 00:00 97.9 20 20 97/70 97 97.9 07/11/17 00:00 95 07/10/17 21:20 142/73 07/10/17 21:20 63 142/73 07/10/17 20:00 98.1 63 20 142/73 100 98.1 07/10/17 20:00 102 07/10/17 19:54 97 18 97 Room Air 21 07/10/17 19:53 97 20 97 Room Air 07/10/17 16:35 97.3 101 21 128/83 97 Nasal Cannula 1.0 97.3 07/10/17 16:00 105 07/10/17 13:33 113/69 07/10/17 12:00 97.2 97 20 113/69 99 Nasal Cannula 1.0 97.2 07/10/17 12:00 101 07/10/17 09:31 107 129/75 07/10/17 09:23 114 20 99 Room Air 21 07/10/17 09:18 114 20 99 Nasal Cannula 1.0 24 Intake and Output 07/10/17 07/11/17 19:00 07:00 Intake Total 1150 ml Balance 1150 ml Intake Oral 1150 ml # Voids 1 Objective GENERAL: A well-developed male. NAD HEENT: Negative. NECK: Supple. Oropharynx is otherwise moist. LUNGS: With improved reduced breath sounds, right lung. otherwise no rhonchi or wheeze CARDIAC: S1 and S2. Regular rate and rhythm. without murmurs, rubs, or gallops. ABDOMEN: Soft, nontender, and nondistended. no HSM EXTREMITIES: No cyanosis, clubbing, or edema. NEUROLOGIC: Grossly nonfocal. Microbiology Date/Time Source Procedure Growth Status 07/09/17 14:00 Blood Blood Culture - Preliminary NO GROWTH AFTER 24 HOURS Resulted 07/09/17 13:50 Blood Blood Culture - Preliminary NO GROWTH AFTER 24 HOURS Resulted 07/10/17 11:30 Pleural Fluid Gram Stain - Final Resulted 07/10/17 11:30 Pleural Fluid Body Fluid Culture Pending Resulted Laboratory Tests 07/10/17 09:10: Prothrombin Time 15.4H, Prothromb Time International Ratio 1.5H 07/10/17 11:30: Body Fluid Source [Pending], Body Fluid Volume [Pending], Body Fluid pH 8, Body Fluid Glucose [Pending], Body Fluid Total Protein [Pending], Body Fluid Lactate Dehydrogenase [Pending] 07/11/17 06:58: Prothrombin Time [Pending], Prothromb Time International Ratio [Pending], White Blood Count 4.5L, Red Blood Count 3.72L, Hemoglobin 11.8L, Hematocrit 35.4L, Mean Corpuscular Volume 95, Mean Corpuscular Hemoglobin 31.8H, Mean Corpuscular Hemoglobin Concent 33.4, Red Cell Distribution Width 16.5H, Platelet Count 156, Mean Platelet Volume 7.6, Neutrophils (%) (Auto) 78.2H, Lymphocytes (%) (Auto) 16.9L, Monocytes (%) (Auto) 2.6, Eosinophils (%) (Auto) 2.1, Basophils (%) (Auto ) 0.3, Sodium Level [Pending], Potassium Level [Pending], Chloride Level [ Pending], Carbon Dioxide Level [Pending], Blood Urea Nitrogen [Pending], Creatinine [Pending], Estimat Glomerular Filtration Rate [Pending], Glucose Level [Pending], Calcium Level [Pending], Pro-B-Type Natriuretic Peptide [ Pending] Current Medications Medications (Trade) Dose Ordered Sig/Allen Route PRN Reason Start Time Stop Time Status Last Admin Dose Admin Acetaminophen/ Hydrocodone Bitart ([place] 10/325) 1 tab Q4H PRN ORAL For Pain 07/09/17 22:30 07/16/17 22:29 07/10/17 21:22 Allopurinol (Zyloprim) 100 mg BID ORAL 07/10/17 09:00 08/09/17 08:59 07/10/17 17:38 Aspirin (ASA) 81 mg DAILY ORAL 07/10/17 09:00 08/09/17 08:59 07/10/17 09:32 Atorvastatin Calcium (Lipitor) 80 mg BEDTIME ORAL 07/10/17 21:00 08/09/17 20:59 07/10/17 21:20 Carvedilol (Coreg) 12.5 mg EVERY 12 HOURS ORAL 07/10/17 21:00 08/09/17 20:59 07/10/17 21:20 Clonidine HCl (Catapres tab) 0.2 mg EVERY 8 HOURS ORAL 07/10/17 22:00 08/09/17 21:59 Clopidogrel Bisulfate (Plavix) 75 mg DAILY ORAL 07/11/17 09:00 08/10/17 08:59 Diphenhydramine HCl (Benadryl) 25 mg HSPRN PRN ORAL Insomnia 07/09/17 22:30 08/08/17 22:29 Glipizide (Glucotrol) 5 mg BIAC ORAL 07/10/17 06:30 08/09/17 06:29 07/11/17 06:22 Hydralazine HCl (Apresoline) 100 mg Q8HR ORAL 07/10/17 22:00 08/09/17 21:59 07/11/17 06:22 Hydrochlorothiazide (Hydrodiuril) 25 mg DAILY ORAL 07/11/17 09:00 08/10/17 08:59 Pantoprazole (Protonix) 40 mg ACBREAKFAST ORAL 07/10/17 06:30 08/09/17 06:29 07/11/17 06:21 Salmeterol Xinafoate/ Fluticasone (Advair 250/50 Diskus) 1 puffs BID INH 07/09/17 22:30 08/08/17 22:29 07/10/17 19:53 Tamsulosin HCl (Flomax) 0.4 mg BEDTIME ORAL 07/10/17 21:00 08/09/17 20:59 07/10/17 21:21 Vitamin D (Vitamin D) 1,000 intlu DAILY ORAL 07/10/17 09:00 08/09/17 08:59 07/10/17 09:29 Warfarin Sodium (Coumadin per pharmacy) 1 ea DAILY PRN MISC Per rx protocol 07/10/17 10:30 08/09/17 10:29 CATIA MCGARRY Jul 11, 2017 08:23
[2017-07-11] MEDS: Advair 250/50 Inhaler - 14 dose INH SCH ×2 (08:33→19:21)
[2017-07-11 08:42] LABS: ANION GAP 8 mmol/L (5-15); BLOOD UREA NITROGEN 33 mg/dL (7-18); CALCIUM 8.7 MG/DL (8.5-10.1); CARBON DIOXIDE 27 MMOL/L (21-32); CHLORIDE 102 MMOL/L (98-107); CREATININE 1.9 MG/DL (0.55-1.30); POTASSIUM 4.1 MMOL/L (3.5-5.1); SODIUM 137 MMOL/L (136-145)
[2017-07-11] MEDS: Allopurinol 100mg Tab ORAL SCH ×2 (08:43→17:21)
[2017-07-11] MEDS: Aspirin Baby 81mg ORAL SCH (08:43)
[2017-07-11] MEDS: Carvedilol 12.5mg tab ORAL SCH ×2 (08:43→21:44)
[2017-07-11] MEDS: Vitamin D 1000 IU Tab ORAL SCH (08:43)
[2017-07-11] MEDS: HYDROcodone/Acetamin 10/325 tab ORAL PRN ×3 (08:44→21:46)
--- NOTE | 2017-07-11 10:51 | General Progress Note ---
Assessment/Plan Assessment/Plan s/p Thoracentesis. Awaiting results. R/O malignant effusion. Subjective Allergies: Coded Allergies: BRITTANI INHIBITORS (Unverified Allergy, Unknown, 03/19/15) Subjective Less SOB. Objective Last 24 Hour Vital Signs Date Time Temp Pulse Resp B/P (MAP) Pulse Ox O2 Delivery O2 Flow Rate FiO2 07/11/17 08:43 85 138/78 07/11/17 08:33 85 18 96 Room Air 07/11/17 08:33 85 18 97 Room Air 21 07/11/17 08:00 97.9 89 20 138/78 100 Room Air 97.9 07/11/17 06:22 126/88 07/11/17 06:06 89 126/88 97 07/11/17 06:00 126/88 07/11/17 04:00 102 07/11/17 00:00 97.9 20 20 97/70 97 97.9 07/11/17 00:00 95 07/10/17 21:20 142/73 07/10/17 21:20 63 142/73 07/10/17 20:00 98.1 63 20 142/73 100 98.1 07/10/17 20:00 102 07/10/17 19:54 97 18 97 Room Air 21 07/10/17 19:53 97 20 97 Room Air 07/10/17 16:35 97.3 101 21 128/83 97 Nasal Cannula 1.0 97.3 07/10/17 16:00 105 07/10/17 13:33 113/69 07/10/17 12:00 97.2 97 20 113/69 99 Nasal Cannula 1.0 97.2 07/10/17 12:00 101 Intake and Output 07/10/17 07/11/17 19:00 07:00 Intake Total 1150 ml Balance 1150 ml Intake Oral 1150 ml # Voids 1 Laboratory Tests 07/10/17 11:30: Body Fluid Source [Pending], Body Fluid Volume [Pending], Body Fluid pH 8, Body Fluid Glucose [Pending], Body Fluid Total Protein [Pending], Body Fluid Lactate Dehydrogenase [Pending] 07/11/17 06:58: White Blood Count 4.5L, Red Blood Count 3.72L, Hemoglobin 11.8L, Hematocrit 35.4L, Mean Corpuscular Volume 95, Mean Corpuscular Hemoglobin 31.8H, Mean Corpuscular Hemoglobin Concent 33.4, Red Cell Distribution Width 16.5H, Platelet Count 156, Mean Platelet Volume 7.6, Neutrophils (%) (Auto) 78.2H, Lymphocytes (%) (Auto) 16.9L, Monocytes (%) (Auto) 2.6, Eosinophils (%) (Auto) 2.1, Basophils (%) (Auto) 0.3, Prothrombin Time 13.8H, Prothromb Time International Ratio 1.3H, Sodium Level 137, Potassium Level 4.1, Chloride Level 102, Carbon Dioxide Level 27, Anion Gap 8, Blood Urea Nitrogen 33H, Creatinine 1.9H, Estimat Glomerular Filtration Rate 43.0, Glucose Level 85, Calcium Level 8.7, Pro-B-Type Natriuretic Peptide 129H Height (Feet): 5 Height (Inches): 9.00 Weight (Pounds): 150 Objective NAD. CV RR Lungs CTA Abd SNT. BS + E No CCE CHERYL RABAGO Jul 11, 2017 10:51
[2017-07-11 12:00] VITALS: BP 131/79
--- NOTE | 2017-07-11 14:17 | Cardiac Electrophysiology PN ---
Assessment/Plan Assessment/Plan 1. Increasing shortness of breath due to the large right-sided pleural refusion. S/thoracentesis of 1.5 liters. 2. History of atrioventricular kenan reentrant tachycardia, status post successful ablation by me at [facility] in 03/2017 3. Coronary artery disease with history of drug-eluting stent. Continue aspirin and Plavix as well as Coreg and Lipitor. 4. Hypertension, on Coreg 12.5 mg b.i.d., hydrochlorothiazide 25 mg, clonidine 0.2 mg t.i.d. and hydralazine 100 mg t.i.d. 5. Paroxysmal atrial fibrillation, on Coreg and Coumadin. 6. Non-small cell lung cancer, status post radiation and chemotherapy, who follows up by Dr. Salguero as an outpatient. 7. Renal failure. Further evaluation by Dr. Maher. Creatinine improved from 2 to 1.5. Back to 1.9 again today DW RN Subjective Subjective Feeling better after thoracentesis and on Lasix. Objective Last 24 Hour Vital Signs Date Time Temp Pulse Resp B/P (MAP) Pulse Ox O2 Delivery O2 Flow Rate FiO2 07/11/17 08:43 85 138/78 07/11/17 08:33 85 18 96 Room Air 07/11/17 08:33 85 18 97 Room Air 21 07/11/17 08:00 97 07/11/17 08:00 97.9 89 20 138/78 100 Room Air 97.9 07/11/17 06:22 126/88 07/11/17 06:06 89 126/88 97 07/11/17 06:00 126/88 07/11/17 04:00 102 07/11/17 00:00 97.9 20 20 97/70 97 97.9 07/11/17 00:00 95 07/10/17 21:20 142/73 07/10/17 21:20 63 142/73 07/10/17 20:00 98.1 63 20 142/73 100 98.1 07/10/17 20:00 102 07/10/17 19:54 97 18 97 Room Air 21 07/10/17 19:53 97 20 97 Room Air 07/10/17 16:35 97.3 101 21 128/83 97 Nasal Cannula 1.0 97.3 07/10/17 16:00 105 Intake and Output 07/10/17 07/11/17 19:00 07:00 Intake Total 1150 ml Balance 1150 ml Intake Oral 1150 ml # Voids 1 Laboratory Tests Test 07/11/17 06:58 White Blood Count 4.5 K/UL (4.8-10.8) L Red Blood Count 3.72 M/UL (4.70-6.10) L Hemoglobin 11.8 G/DL (14.2-18.0) L Hematocrit 35.4 % (42.0-52.0) L Mean Corpuscular Volume 95 FL (80-99) Mean Corpuscular Hemoglobin 31.8 PG (27.0-31.0) H Mean Corpuscular Hemoglobin Concent 33.4 G/DL (32.0-36.0) Red Cell Distribution Width 16.5 % (11.6-14.8) H Platelet Count 156 K/UL (150-450) Mean Platelet Volume 7.6 FL (6.5-10.1) Neutrophils (%) (Auto) 78.2 % (45.0-75.0) H Lymphocytes (%) (Auto) 16.9 % (20.0-45.0) L Monocytes (%) (Auto) 2.6 % (1.0-10.0) Eosinophils (%) (Auto) 2.1 % (0.0-3.0) Basophils (%) (Auto) 0.3 % (0.0-2.0) Prothrombin Time 13.8 SEC (9.30-11.50) H Prothromb Time International Ratio 1.3 (0.9-1.1) H Sodium Level 137 MMOL/L (136-145) Potassium Level 4.1 MMOL/L (3.5-5.1) Chloride Level 102 MMOL/L (98-107) Carbon Dioxide Level 27 MMOL/L (21-32) Anion Gap 8 mmol/L (5-15) Blood Urea Nitrogen 33 mg/dL (7-18) H Creatinine 1.9 MG/DL (0.55-1.30) H Estimat Glomerular Filtration Rate 43.0 mL/min (>60) Glucose Level 85 MG/DL (74-106) Calcium Level 8.7 MG/DL (8.5-10.1) Pro-B-Type Natriuretic Peptide 129 pg/mL (0-125) H Microbiology Date/Time Source Procedure Growth Status 07/09/17 14:00 Blood Blood Culture - Preliminary NO GROWTH AFTER 24 HOURS Resulted 07/09/17 13:50 Blood Blood Culture - Preliminary NO GROWTH AFTER 24 HOURS Resulted 07/10/17 11:30 Pleural Fluid Gram Stain - Final Resulted 07/10/17 11:30 Pleural Fluid Body Fluid Culture - Preliminary NO GROWTH Resulted Objective HEENT: Mild JVD LUNGS: Clear CVS: RRR,No G/R/M ABDONEN: Soft EXT: No edema DARNELL RICK Jul 11, 2017 14:17
[2017-07-11 16:00] VITALS: BP 119/68
[2017-07-11 20:00] VITALS: BP 124/72
[2017-07-11] MEDS: Atorvastatin 80mg tab ORAL SCH (21:43)
[2017-07-11] MEDS: Tamsulosin 0.4mg cap ORAL SCH (21:44)
[2017-07-12] VITALS (7 sets, daily range): BP systolic 91–161; BP diastolic 50–79
[2017-07-12] MEDS: HydrALAZINE 50mg tab ORAL SCH ×3 (06:00→23:34)
[2017-07-12] MEDS: cloNIDine 0.2mg Tab ORAL SCH ×3 (06:00→22:49)
[2017-07-12] MEDS: GlipiZIDE 5mg tab ORAL SCH ×2 (06:23→17:04)
[2017-07-12] MEDS: Advair 250/50 Inhaler - 14 dose INH SCH ×2 (07:15→18:53)
--- NOTE | 2017-07-12 07:37 | Pulmonology Progress Note ---
Assessment/Plan Assessment/Plan IMPRESSION: 1. Recurrent right pleural effusion with concern for malignancy. 2. History of lung cancer. 3. History of prior resection. 4. Evidence of sinus tachycardia. 5. History of atrial fibrillation, paroxysmal. 6. History of chronic obstructive pulmonary disease/asthma. 7. History of cerebrovascular accident. 8. History of diabetes. 9. Myocardial infarction. PLAN follow up cytology and culture monitor fluid status monitor imaging for change and recurrence of effusion if recurs, consider pleuRX catheter oncology follow up recommended impression, plan, and exam edited and reviewed in detail care discussed with RN Subjective Allergies: Coded Allergies: BRITTANI INHIBITORS (Unverified Allergy, Unknown, 03/19/15) Subjective minimal sob on oxygen no distress care reviewed and patient comfortable post tap Objective Last 24 Hour Vital Signs Date Time Temp Pulse Resp B/P (MAP) Pulse Ox O2 Delivery O2 Flow Rate FiO2 07/12/17 07:16 Room Air 07/12/17 07:16 Room Air 07/12/17 04:00 97.9 92 16 115/77 100 Room Air 97.9 07/12/17 04:00 98 07/12/17 00:00 93 07/12/17 00:00 97.5 94 20 91/50 97 Room Air 97.5 07/11/17 21:44 94 119/68 07/11/17 21:43 119/68 07/11/17 20:00 97.0 87 21 124/72 98 Room Air 97.0 07/11/17 20:00 88 07/11/17 19:24 94 20 99 Room Air 21 07/11/17 19:22 91 20 98 Room Air 21 07/11/17 16:00 98.1 99 20 119/68 100 Room Air 98.1 07/11/17 16:00 99 07/11/17 15:19 131/79 07/11/17 15:18 131/79 07/11/17 12:00 98.3 87 20 131/79 96 Room Air 98.3 07/11/17 12:00 89 07/11/17 08:43 85 138/78 07/11/17 08:33 85 18 96 Room Air 07/11/17 08:33 85 18 97 Room Air 21 07/11/17 08:00 97 07/11/17 08:00 97.9 89 20 138/78 100 Room Air 97.9 Intake and Output 07/11/17 07/12/17 19:00 07:00 Intake Total 820 ml Balance 820 ml Intake Oral 820 ml # Voids 3 Objective GENERAL: A well-developed male. NAD HEENT: Negative. NECK: Supple. Oropharynx is otherwise moist. LUNGS: With improved reduced breath sounds, right lung. otherwise no rhonchi or wheeze CARDIAC: S1 and S2. Regular rate and rhythm. without murmurs, rubs, or gallops. ABDOMEN: Soft, nontender, and nondistended. no HSM EXTREMITIES: No cyanosis, clubbing, or edema. NEUROLOGIC: Grossly nonfocal. Microbiology Date/Time Source Procedure Growth Status 07/09/17 14:00 Blood Blood Culture - Preliminary NO GROWTH AFTER 48 HOURS Resulted 07/09/17 13:50 Blood Blood Culture - Preliminary NO GROWTH AFTER 48 HOURS Resulted 07/10/17 11:30 Body Fluid AFB Specimen Processing Tissue - Final Resulted 07/10/17 11:30 Body Fluid Acid Fast Bacilli Smear - Final Resulted 07/10/17 11:30 Body Fluid Acid Fast Bacilli Culture Pending Resulted 07/10/17 11:30 Pleural Fluid Gram Stain - Final Resulted 07/10/17 11:30 Pleural Fluid Body Fluid Culture - Preliminary NO GROWTH Resulted Current Medications Medications (Trade) Dose Ordered Sig/Allen Route PRN Reason Start Time Stop Time Status Last Admin Dose Admin Acetaminophen/ Hydrocodone Bitart ([place] 10/325) 1 tab Q4H PRN ORAL For Pain 07/09/17 22:30 07/16/17 22:29 07/11/17 21:46 Allopurinol (Zyloprim) 100 mg BID ORAL 07/10/17 09:00 08/09/17 08:59 07/11/17 17:21 Aspirin (ASA) 81 mg DAILY ORAL 07/10/17 09:00 08/09/17 08:59 07/11/17 08:43 Atorvastatin Calcium (Lipitor) 80 mg BEDTIME ORAL 07/10/17 21:00 08/09/17 20:59 07/11/17 21:43 Carvedilol (Coreg) 12.5 mg EVERY 12 HOURS ORAL 07/10/17 21:00 08/09/17 20:59 07/11/17 21:44 Clonidine HCl (Catapres tab) 0.2 mg EVERY 8 HOURS ORAL 07/10/17 22:00 08/09/17 21:59 07/11/17 15:18 Clopidogrel Bisulfate (Plavix) 75 mg DAILY ORAL 07/11/17 09:00 08/10/17 08:59 07/11/17 08:44 Diphenhydramine HCl (Benadryl) 25 mg HSPRN PRN ORAL Insomnia 07/09/17 22:30 08/08/17 22:29 Glipizide (Glucotrol) 5 mg BIAC ORAL 07/10/17 06:30 08/09/17 06:29 07/12/17 06:23 Hydralazine HCl (Apresoline) 100 mg Q8HR ORAL 07/10/17 22:00 08/09/17 21:59 07/11/17 21:43 Hydrochlorothiazide (Hydrodiuril) 25 mg DAILY ORAL 07/11/17 09:00 08/10/17 08:59 07/11/17 08:45 Pantoprazole (Protonix) 40 mg ACBREAKFAST ORAL 07/10/17 06:30 08/09/17 06:29 07/12/17 06:23 Salmeterol Xinafoate/ Fluticasone (Advair 250/50 Diskus) 1 puffs BID INH 07/09/17 22:30 08/08/17 22:29 07/11/17 19:21 Tamsulosin HCl (Flomax) 0.4 mg BEDTIME ORAL 07/10/17 21:00 08/09/17 20:59 07/11/17 21:44 Vitamin D (Vitamin D) 1,000 intlu DAILY ORAL 07/10/17 09:00 08/09/17 08:59 07/11/17 08:43 Warfarin Sodium (Coumadin per pharmacy) 1 ea DAILY PRN MISC Per rx protocol 07/10/17 10:30 08/09/17 10:29 CATIA MCGARRY Jul 12, 2017 07:37
[2017-07-12 08:11] LABS: INR 1.2 (0.9-1.1)
[2017-07-12] MEDS: Vitamin D 1000 IU Tab ORAL SCH (08:27)
[2017-07-12] MEDS: Aspirin Baby 81mg ORAL SCH (08:28)
[2017-07-12] MEDS: Allopurinol 100mg Tab ORAL SCH ×2 (08:28→17:04)
[2017-07-12] MEDS: Carvedilol 12.5mg tab ORAL SCH ×2 (08:29→21:12)
[2017-07-12] MEDS: HYDROcodone/Acetamin 10/325 tab ORAL PRN (08:34)
--- NOTE | 2017-07-12 09:53 | General Progress Note ---
Assessment/Plan Assessment/Plan s/p Thoracentesis. Awaiting results. R/O malignant effusion. Subjective Allergies: Coded Allergies: BRITTANI INHIBITORS (Unverified Allergy, Unknown, 03/19/15) Subjective Less SOB. Objective Last 24 Hour Vital Signs Date Time Temp Pulse Resp B/P (MAP) Pulse Ox O2 Delivery O2 Flow Rate FiO2 07/12/17 08:29 102 161/72 07/12/17 07:16 Room Air 07/12/17 07:16 Room Air 07/12/17 04:00 97.9 92 16 115/77 100 Room Air 97.9 07/12/17 04:00 98 07/12/17 00:00 93 07/12/17 00:00 97.5 94 20 91/50 97 Room Air 97.5 07/11/17 21:44 94 119/68 07/11/17 21:43 119/68 07/11/17 20:00 97.0 87 21 124/72 98 Room Air 97.0 07/11/17 20:00 88 07/11/17 19:24 94 20 99 Room Air 21 07/11/17 19:22 91 20 98 Room Air 21 07/11/17 16:00 98.1 99 20 119/68 100 Room Air 98.1 07/11/17 16:00 99 07/11/17 15:19 131/79 07/11/17 15:18 131/79 07/11/17 12:00 98.3 87 20 131/79 96 Room Air 98.3 07/11/17 12:00 89 Intake and Output 07/11/17 07/12/17 19:00 07:00 Intake Total 820 ml 300 ml Output Total 275 ml Balance 820 ml 25 ml Intake Oral 820 ml 300 ml Output Urine Total 275 ml # Voids 3 Laboratory Tests 07/12/17 07:15: Prothrombin Time 12.6H, Prothromb Time International Ratio 1.2H Height (Feet): 5 Height (Inches): 9.00 Weight (Pounds): 150 Objective NAD. CV RR Lungs CTA Abd SNT. BS + E No CCE CHERYL RABAGO Jul 12, 2017 09:53
[2017-07-12 10:38] LABS: BASOPHILS % (AUTO) 0.4 % (0.0-2.0); EOSINOPHILS % (AUTO) 0.9 % (0.0-3.0); HEMATOCRIT 34.6 % (42.0-52.0); HEMOGLOBIN 11.3 G/DL (14.2-18.0); LYMPHOCYTES % (AUTO) 18.5 % (20.0-45.0); MEAN CORPUSCULAR VOLUME 95 FL (80-99); MONOCYTES % (AUTO) 3.2 % (1.0-10.0); PLATELET COUNT 145 K/UL (150-450); RED BLOOD COUNT 3.65 M/UL (4.70-6.10); RED CELL DISTRIBUTION WIDTH 16.1 % (11.6-14.8); WHITE BLOOD COUNT 4.7 K/UL (4.8-10.8)
[2017-07-12 10:48] LABS: ALANINE AMINOTRANSFERASE 39 U/L (12-78); ALBUMIN 3.3 G/DL (3.4-5.0); ALBUMIN/GLOBULIN RATIO 0.8 (1.0-2.7); ALKALINE PHOSPHATASE 78 U/L (46-116); ANION GAP 8 mmol/L (5-15); ASPARTATE AMINO TRANSFERASE 36 U/L (15-37); BILIRUBIN,TOTAL 0.4 MG/DL (0.2-1.0); BLOOD UREA NITROGEN 40 mg/dL (7-18); CALCIUM 8.8 MG/DL (8.5-10.1); CARBON DIOXIDE 27 MMOL/L (21-32); CHLORIDE 103 MMOL/L (98-107); CREATININE 1.8 MG/DL (0.55-1.30); POTASSIUM 3.8 MMOL/L (3.5-5.1); SODIUM 138 MMOL/L (136-145)
--- NOTE | 2017-07-12 13:48 | Cardiac Electrophysiology PN ---
Assessment/Plan Assessment/Plan 1. Increasing shortness of breath due to the large right-sided pleural effusion. S/thoracentesis of 1.5 liters. Cytology pending. 2. History of atrioventricular kenan reentrant tachycardia, status post successful ablation by me at [facility] in 03/2017 3. Coronary artery disease with history of drug-eluting stent. Continue aspirin,Plavix, Coreg and Lipitor. 4. Hypertension, on Coreg 12.5 mg b.i.d., hydrochlorothiazide 25 mg, clonidine 0.2 mg t.i.d. and hydralazine 100 mg t.i.d. 5. Paroxysmal atrial fibrillation, on Coreg and Coumadin. 6. Non-small cell lung cancer, status post radiation and chemotherapy, who follows up by Dr. Salguero as an outpatient. 7. Renal failure. Further evaluation by Dr. Maher. Creatinine 1.8 today RICK RN Subjective Subjective No chest pain. SOB better after thoracentesis. Objective Last 24 Hour Vital Signs Date Time Temp Pulse Resp B/P (MAP) Pulse Ox O2 Delivery O2 Flow Rate FiO2 07/12/17 08:29 102 161/72 07/12/17 08:00 98.1 102 18 161/72 99 Room Air 98.1 07/12/17 08:00 98 07/12/17 07:16 Room Air 07/12/17 07:16 Room Air 07/12/17 04:00 97.9 92 16 115/77 100 Room Air 97.9 07/12/17 04:00 98 07/12/17 00:00 93 07/12/17 00:00 97.5 94 20 91/50 97 Room Air 97.5 07/11/17 21:44 94 119/68 07/11/17 21:43 119/68 07/11/17 20:00 97.0 87 21 124/72 98 Room Air 97.0 07/11/17 20:00 88 07/11/17 19:24 94 20 99 Room Air 21 07/11/17 19:22 91 20 98 Room Air 21 07/11/17 16:00 98.1 99 20 119/68 100 Room Air 98.1 07/11/17 16:00 99 07/11/17 15:19 131/79 07/11/17 15:18 131/79 Intake and Output 07/11/17 07/12/17 19:00 07:00 Intake Total 820 ml 300 ml Output Total 275 ml Balance 820 ml 25 ml Intake Oral 820 ml 300 ml Output Urine Total 275 ml # Voids 3 Laboratory Tests Test 07/12/17 07:15 White Blood Count 4.7 K/UL (4.8-10.8) L Red Blood Count 3.65 M/UL (4.70-6.10) L Hemoglobin 11.3 G/DL (14.2-18.0) L Hematocrit 34.6 % (42.0-52.0) L Mean Corpuscular Volume 95 FL (80-99) Mean Corpuscular Hemoglobin 30.8 PG (27.0-31.0) Mean Corpuscular Hemoglobin Concent 32.5 G/DL (32.0-36.0) Red Cell Distribution Width 16.1 % (11.6-14.8) H Platelet Count 145 K/UL (150-450) L Mean Platelet Volume 7.4 FL (6.5-10.1) Neutrophils (%) (Auto) 77.0 % (45.0-75.0) H Lymphocytes (%) (Auto) 18.5 % (20.0-45.0) L Monocytes (%) (Auto) 3.2 % (1.0-10.0) Eosinophils (%) (Auto) 0.9 % (0.0-3.0) Basophils (%) (Auto) 0.4 % (0.0-2.0) Prothrombin Time 12.6 SEC (9.30-11.50) H Prothromb Time International Ratio 1.2 (0.9-1.1) H Sodium Level 138 MMOL/L (136-145) Potassium Level 3.8 MMOL/L (3.5-5.1) Chloride Level 103 MMOL/L (98-107) Carbon Dioxide Level 27 MMOL/L (21-32) Anion Gap 8 mmol/L (5-15) Blood Urea Nitrogen 40 mg/dL (7-18) H Creatinine 1.8 MG/DL (0.55-1.30) H Estimat Glomerular Filtration Rate 45.8 mL/min (>60) Glucose Level 71 MG/DL (74-106) L Calcium Level 8.8 MG/DL (8.5-10.1) Total Bilirubin 0.4 MG/DL (0.2-1.0) Aspartate Amino Transf (AST/SGOT) 36 U/L (15-37) Alanine Aminotransferase (ALT/SGPT) 39 U/L (12-78) Alkaline Phosphatase 78 U/L (46-116) Total Protein 7.4 G/DL (6.4-8.2) Albumin 3.3 G/DL (3.4-5.0) L Globulin 4.1 g/dL Albumin/Globulin Ratio 0.8 (1.0-2.7) L Microbiology Date/Time Source Procedure Growth Status 07/09/17 14:00 Blood Blood Culture - Preliminary NO GROWTH AFTER 48 HOURS Resulted 07/09/17 13:50 Blood Blood Culture - Preliminary NO GROWTH AFTER 48 HOURS Resulted 07/10/17 11:30 Body Fluid AFB Specimen Processing Tissue - Final Resulted 07/10/17 11:30 Body Fluid Acid Fast Bacilli Smear - Final Resulted 07/10/17 11:30 Body Fluid Acid Fast Bacilli Culture Pending Resulted 07/10/17 11:30 Pleural Fluid Gram Stain - Final Resulted 07/10/17 11:30 Pleural Fluid Body Fluid Culture - Preliminary NO GROWTH AFTER 24 HOURS Resulted Objective HEENT: Mild JVD LUNGS: Clear CVS: RRR,No G/R/M ABDONEN: Soft EXT: No edema DARNELL RICK Jul 12, 2017 13:48
--- NOTE | 2017-07-12 15:28 | Cardiology Report ---
APPROVED REPORT EKG Measurement Heart [id number] MD [id number] Sinus tachycardia with premature supraventricular complexes Left axis deviation Anteroseptal infarct, age undetermined Abnormal ECG
[2017-07-12] MEDS ORDERED: WARFARIN SOD ORAL ONE ×2 (17:00)
[2017-07-12] MEDS: Atorvastatin 80mg tab ORAL SCH (21:12)
[2017-07-12] MEDS: Tamsulosin 0.4mg cap ORAL SCH (21:12)
[2017-07-13 04:00] VITALS: BP 118/70
[2017-07-13] MEDS: cloNIDine 0.2mg Tab ORAL SCH ×2 (06:00→14:00)
[2017-07-13] MEDS: HydrALAZINE 50mg tab ORAL SCH ×2 (06:26→14:22)
[2017-07-13] MEDS: HYDROcodone/Acetamin 10/325 tab ORAL PRN (06:27)
[2017-07-13] MEDS: GlipiZIDE 5mg tab ORAL SCH (06:27)
[2017-07-13 08:00] VITALS: BP 117/70
--- NOTE | 2017-07-13 08:04 | Pulmonology Progress Note ---
Assessment/Plan Assessment/Plan IMPRESSION: 1. Recurrent right pleural effusion with concern for malignancy. 2. History of lung cancer. 3. History of prior resection. 4. Evidence of sinus tachycardia. 5. History of atrial fibrillation, paroxysmal. 6. History of chronic obstructive pulmonary disease/asthma. 7. History of cerebrovascular accident. 8. History of diabetes. 9. Myocardial infarction. PLAN follow up cytology and culture- still final pending monitor fluid status monitor imaging for change and recurrence of effusion if recurs, consider pleuRX catheter if recurs oncology follow up recommended impression, plan, and exam edited and reviewed in detail care discussed with RN Subjective Allergies: Coded Allergies: BRITTANI INHIBITORS (Unverified Allergy, Unknown, 03/19/15) Subjective minimal sob on oxygen no distress care reviewed Objective Last 24 Hour Vital Signs Date Time Temp Pulse Resp B/P (MAP) Pulse Ox O2 Delivery O2 Flow Rate FiO2 07/13/17 06:26 118/70 07/13/17 04:00 98.2 89 18 118/70 98 Room Air 98.2 07/13/17 03:37 82 07/12/17 23:56 95 07/12/17 23:34 108/69 07/12/17 23:30 98.0 96 18 108/69 98 Room Air 98.0 07/12/17 22:49 117/64 07/12/17 21:12 96 105/52 07/12/17 20:00 98.1 88 18 105/52 97 Room Air 98.1 07/12/17 19:20 105 07/12/17 18:53 91 20 99 Room Air 21 07/12/17 18:53 88 20 97 Room Air 21 07/12/17 16:00 97.5 99 18 141/71 95 Room Air 97.5 07/12/17 16:00 99 07/12/17 15:04 121/79 07/12/17 15:04 121/79 07/12/17 12:00 92 07/12/17 12:00 97.7 95 18 121/79 98 Room Air 97.7 07/12/17 08:29 102 161/72 Intake and Output 07/12/17 07/13/17 19:00 07:00 Intake Total 600 ml Balance 600 ml Intake Oral 600 ml # Voids 3 2 # Bowel Movements 1 Objective GENERAL: A well-developed male. NAD HEENT: Negative. NECK: Supple. Oropharynx is otherwise moist. LUNGS: With improved reduced breath sounds, right lung. otherwise no rhonchi or wheeze CARDIAC: S1 and S2. Regular rate and rhythm. without murmurs, rubs, or gallops. ABDOMEN: Soft, nontender, and nondistended. no HSM EXTREMITIES: No cyanosis, clubbing, or edema. NEUROLOGIC: Grossly nonfocal. Microbiology Date/Time Source Procedure Growth Status 07/10/17 11:30 Body Fluid AFB Specimen Processing Tissue - Final Resulted 07/10/17 11:30 Body Fluid Acid Fast Bacilli Smear - Final Resulted 07/10/17 11:30 Body Fluid Acid Fast Bacilli Culture Pending Resulted 07/10/17 11:30 Pleural Fluid Gram Stain - Final Resulted 07/10/17 11:30 Pleural Fluid Body Fluid Culture - Preliminary NO GROWTH AFTER 24 HOURS Resulted Current Medications Medications (Trade) Dose Ordered Sig/Allen Route PRN Reason Start Time Stop Time Status Last Admin Dose Admin Acetaminophen/ Hydrocodone Bitart ([place] 10/325) 1 tab Q4H PRN ORAL For Pain 07/09/17 22:30 07/16/17 22:29 07/13/17 06:27 Allopurinol (Zyloprim) 100 mg BID ORAL 07/10/17 09:00 08/09/17 08:59 07/12/17 17:04 Aspirin (ASA) 81 mg DAILY ORAL 07/10/17 09:00 08/09/17 08:59 07/12/17 08:28 Atorvastatin Calcium (Lipitor) 80 mg BEDTIME ORAL 07/10/17 21:00 08/09/17 20:59 07/12/17 21:12 Carvedilol (Coreg) 12.5 mg EVERY 12 HOURS ORAL 07/10/17 21:00 08/09/17 20:59 07/12/17 21:12 Clonidine HCl (Catapres tab) 0.2 mg EVERY 8 HOURS ORAL 07/10/17 22:00 08/09/17 21:59 07/12/17 22:49 Clopidogrel Bisulfate (Plavix) 75 mg DAILY ORAL 07/11/17 09:00 08/10/17 08:59 07/12/17 08:27 Diphenhydramine HCl (Benadryl) 25 mg HSPRN PRN ORAL Insomnia 07/09/17 22:30 08/08/17 22:29 Glipizide (Glucotrol) 5 mg BIAC ORAL 07/10/17 06:30 08/09/17 06:29 07/13/17 06:27 Hydralazine HCl (Apresoline) 100 mg Q8HR ORAL 07/10/17 22:00 08/09/17 21:59 07/13/17 06:26 Hydrochlorothiazide (Hydrodiuril) 25 mg DAILY ORAL 07/11/17 09:00 08/10/17 08:59 07/12/17 08:28 Pantoprazole (Protonix) 40 mg ACBREAKFAST ORAL 07/10/17 06:30 08/09/17 06:29 07/13/17 06:26 Salmeterol Xinafoate/ Fluticasone (Advair 250/50 Diskus) 1 puffs BID INH 07/09/17 22:30 08/08/17 22:29 07/12/17 18:53 Tamsulosin HCl (Flomax) 0.4 mg BEDTIME ORAL 07/10/17 21:00 08/09/17 20:59 07/12/17 21:12 Vitamin D (Vitamin D) 1,000 intlu DAILY ORAL 07/10/17 09:00 08/09/17 08:59 07/12/17 08:27 Warfarin Sodium (Coumadin per pharmacy) 1 ea DAILY PRN MISC Per rx protocol 07/10/17 10:30 08/09/17 10:29 CATIA MCGARRY Jul 13, 2017 08:04
[2017-07-13] MEDS: Carvedilol 12.5mg tab ORAL SCH (08:31)
[2017-07-13] MEDS: Vitamin D 1000 IU Tab ORAL SCH (08:31)
[2017-07-13] MEDS: Allopurinol 100mg Tab ORAL SCH (08:31)
[2017-07-13] MEDS: Aspirin Baby 81mg ORAL SCH (08:31)
[2017-07-13 08:41] LABS: INR 1.2 (0.9-1.1)
--- NOTE | 2017-07-13 09:01 | General Progress Note ---
Assessment/Plan Assessment/Plan s/p Thoracentesis. Awaiting results. m/p malignant effusion. RICK Otero. DC home. Outpatient F/U Subjective Allergies: Coded Allergies: BRITTANI INHIBITORS (Unverified Allergy, Unknown, 03/19/15) Subjective Less SOB. Objective Last 24 Hour Vital Signs Date Time Temp Pulse Resp B/P (MAP) Pulse Ox O2 Delivery O2 Flow Rate FiO2 07/13/17 08:31 90 117/70 07/13/17 08:00 97.5 90 20 117/70 98 Room Air 97.5 07/13/17 06:26 118/70 07/13/17 04:00 98.2 89 18 118/70 98 Room Air 98.2 07/13/17 03:37 82 07/12/17 23:56 95 07/12/17 23:34 108/69 07/12/17 23:30 98.0 96 18 108/69 98 Room Air 98.0 07/12/17 22:49 117/64 07/12/17 21:12 96 105/52 07/12/17 20:00 98.1 88 18 105/52 97 Room Air 98.1 07/12/17 19:20 105 07/12/17 18:53 91 20 99 Room Air 21 07/12/17 18:53 88 20 97 Room Air 21 07/12/17 16:00 97.5 99 18 141/71 95 Room Air 97.5 07/12/17 16:00 99 07/12/17 15:04 121/79 07/12/17 15:04 121/79 07/12/17 12:00 92 07/12/17 12:00 97.7 95 18 121/79 98 Room Air 97.7 Intake and Output 07/12/17 07/13/17 19:00 07:00 Intake Total 600 ml Balance 600 ml Intake Oral 600 ml # Voids 3 2 # Bowel Movements 1 Laboratory Tests 07/13/17 07:00: Prothrombin Time 12.7H, Prothromb Time International Ratio 1.2H Height (Feet): 5 Height (Inches): 9.00 Weight (Pounds): 150 Objective NAD. CV RR Lungs CTA Abd SNT. BS + E No CCE CHERYL RABAGO Jul 13, 2017 09:00
[2017-07-13] MEDS: Advair 250/50 Inhaler - 14 dose INH SCH (09:30)
[2017-07-13 12:00] VITALS: BP 112/79
--- NOTE | 2017-07-13 13:13 | Cardiac Electrophysiology PN ---
Assessment/Plan Assessment/Plan 1. Increasing shortness of breath due to the large right-sided pleural effusion. S/P thoracentesis 1.5 liters. Cytology pending. 2. History of atrioventricular kenan reentrant tachycardia, status post successful ablation by me at [facility] in 03/2017. No recurrence. 3. Coronary artery disease with RICK. Continue aspirin,Plavix, Coreg and Lipitor. 4. Hypertension, on Coreg 12.5 mg b.i.d., hydrochlorothiazide 25 mg, clonidine 0.2 mg t.i.d. and hydralazine 100 mg t.i.d. 5. Paroxysmal atrial fibrillation, on Coreg and Coumadin. 6. Non-small cell lung cancer, status post radiation and chemotherapy, who follows up by Dr. Salguero as an outpatient. 7. Renal failure. Further evaluation by Dr. Maher. Creatinine 1.8 DW RN OK to DC Subjective Subjective No chest pain. SOB better. Awaiting discharge. Objective Last 24 Hour Vital Signs Date Time Temp Pulse Resp B/P (MAP) Pulse Ox O2 Delivery O2 Flow Rate FiO2 07/13/17 12:00 97.7 80 20 112/79 98 Room Air 97.7 07/13/17 09:30 84 18 98 Room Air 21 07/13/17 09:30 Room Air 21 07/13/17 08:31 90 117/70 07/13/17 08:00 84 07/13/17 08:00 97.5 90 20 117/70 98 Room Air 97.5 07/13/17 06:26 118/70 07/13/17 04:00 98.2 89 18 118/70 98 Room Air 98.2 07/13/17 03:37 82 07/12/17 23:56 95 07/12/17 23:34 108/69 07/12/17 23:30 98.0 96 18 108/69 98 Room Air 98.0 07/12/17 22:49 117/64 07/12/17 21:12 96 105/52 07/12/17 20:00 98.1 88 18 105/52 97 Room Air 98.1 07/12/17 19:20 105 07/12/17 18:53 91 20 99 Room Air 21 07/12/17 18:53 88 20 97 Room Air 21 07/12/17 16:00 97.5 99 18 141/71 95 Room Air 97.5 07/12/17 16:00 99 07/12/17 15:04 121/79 07/12/17 15:04 121/79 Intake and Output 07/12/17 07/13/17 19:00 07:00 Intake Total 600 ml Balance 600 ml Intake Oral 600 ml # Voids 3 2 # Bowel Movements 1 Laboratory Tests Test 07/13/17 07:00 Prothrombin Time 12.7 SEC (9.30-11.50) H Prothromb Time International Ratio 1.2 (0.9-1.1) H Objective HEENT: Mild JVD LUNGS: Clear CVS: RRR, No G/R/M ABDONEN: Soft EXT: No edema DARNELL RICK Jul 13, 2017 13:13
[2017-07-13 14:22] VITALS: BP 112/79
[2017-07-13] MEDS ORDERED: Warfarin Sodium 10mg ORAL ONE (17:00)
--- NOTE | 2017-07-16 10:19 | Discharge Summary ---
Discharge Summary Hospital Course Date of Admission Jul 09, 2017 at 14:40 Date of Discharge Jul 13, 2017 at 14:15 Admitting Diagnosis SHORTNESS OF BREATH HPI Ricardo Beckwith is a 67 year old male who was admitted on Jul 09, 2017 at 14:40 for Shortness Of Breath Hospital Course dc summary #[id number] Discharge Medications Continued Medications: Allopurinol* (Allopurinol*) 100 Mg Tablet 100 MG ORAL BID, TAB Aspirin Ec* (Aspirin Ec*) 81 Mg Tablet.dr 81 MG ORAL DAILY for 30 Days, TAB Atorvastatin Calcium* (Lipitor*) 80 Mg Tablet 80 MG ORAL BEDTIME, TAB Carvedilol* (Carvedilol*) 12.5 Mg Tablet 12.5 MG ORAL EVERY 12 HOURS, TAB Cholecalciferol (Vitamin D3)* (Vitamin D*) 1,000 Unit Tablet 1000 UNIT ORAL DAILY, #30 TAB Clonidine Hcl* (Catapres*) 0.2 Mg Tablet 0.2 MG ORAL THREE TIMES A DAY, TAB Diphenhydramine Hcl* (Diphenhydramine Hcl*) 25 Mg Capsule 25 MG ORAL BEDTIME, #30 CAP 0 Refills Fluticasone/Salmeterol (Advair 250-50 Diskus) 1 Each Blst.w.dev 1 PUFF INH EVERY 12 HOURS, EA Glipizide* (Glipizide*) 5 Mg Tablet 5 MG ORAL BIDAC, TAB Hydralazine Hcl* (Hydralazine Hcl*) 100 Mg Tablet 100 MG ORAL THREE TIMES A DAY, TAB Hydrochlorothiazide* (Hydrochlorothiazide*) 25 Mg Tablet 25 MG ORAL DAILY, TAB Hydrocodone Bit/Acetaminophen 10-325* ([place] 10-325*) 1 Each Tablet 1 TAB ORAL Q4H PRN for For Pain, TAB 0 Refills PRN PAIN Nitroglycerin (Nitrostat) 0.4 Mg Tab.subl 0.4 MG SL ONCE PRN for CHEST PAIN, #25 TAB 0 Refills Pantoprazole* (Pantoprazole*) 40 Mg Tablet.dr 40 MG ORAL DAILY, TAB Tamsulosin Hcl (Tamsulosin Hcl*) 0.4 Mg Cap.er.24h 0.4 MG ORAL BEDTIME, CAP Ticagrelor* (Brilinta*) 90 Mg Tablet 90 MG PO BID, TAB Warfarin Sod* (Coumadin*) 1 Mg Tablet 1 MG ORAL @thu,pippa,sat,sun, TAB Warfarin Sod* (Warfarin Sod*) 10 Mg Tablet 10 MG ORAL DAILY, TAB Discharge Condition Upon Discharge: stable Discharge Disposition Patient was discharged to Home (01) Discharge Diagnoses: Discharge Instructions Discharge Instructions Special Instructions I have been assigned to complete a D/C Summary on this account. I was not involved in the patient management Bhumika Montilla NP ([facility]) Jul 16, 2017 10:19
--- NOTE | 2017-07-17 07:30 | Discharge Summary 2 SIG ---
DATE OF ADMISSION: 07/09/2017 DATE OF DISCHARGE: 07/13/2017 REASON FOR ADMISSION: 67-year-old male with past medical history significant for zct-zbdgw-catz lung CA, status post chemotherapy and radiation, coronary artery disease with history of OH and drug-eluting stents, history of superior vena cava syndrome, COPD, history of paroxysmal atrial fibrillation, status post CVA, type 2 diabetes mellitus, who presented to emergency department with shortness of breath. The patient also had elevated blood pressure and was tachycardic. He denied chest pain. Denied fever, chills, cough, or leg swelling. The patient placed on supplemental oxygen. Chest x-ray revealed large right pleural effusion and right mid lung nodule, new since prior imaging. Troponin was negative. EKG revealed sinus tachycardia, no acute ischemic changes. Lactic acid within normal limits. Creatinine -1.5. The patient admitted with diagnoses of: 1. Recurrent right pleural effusion with concern of malignancy. 2. Renal insufficiency. 3. Shortness of breath secondary to pleural effusion and history of lung CA. 4. History of lung CA. 5. COPD. 6. History of superior vena cava syndrome. 7. Status post CVA. 8. Diabetes mellitus type 2. 9. History of paroxysmal atrial fibrillation. HOSPITAL COURSE: The patient admitted. Pulmonology and Cardiology consults were requested. Initially started on empiric antibiotics. The patient subsequently had undergone thoracentesis of right pleural effusion which yielded 1.2 L of fluid. Blood culture negative and pleural fluid culture negative. Antibiotic stopped. Cytology still pending. There was a high concern for malignancy given history of zla-ckdzp-sxge lung CA, status post chemotherapy and radiation. The patient recommended to follow up as an outpatient with oncologist. The patient would be notified with cytology results when available. Supplemental oxygen and pulmonary toilet provided as needed. Pain management provided. Lens Inspector closely followed the patient. The patient was seen by body shop technician as an outpatient as well. Blood pressure was managed with beta-tameka, hydrochlorothiazide, clonidine, and hydralazine (the patient allergic to BRITTANI inhibitor). Patient with history of coronary artery disease, status post drug-eluting stent placement. Patient was managed with dual-antiplatelet therapy with aspirin and Plavix as well as beta-tameka and statin. The patient had history of AV kenan reentrant tachycardia, status post successful ablation in 2017, without recurrence. Creatinine remained elevated - 1.8 prior to discharge. Blood sugar was managed with oral anti-glycemic and remained stable.The patient will need to follow up with renal parameters as an outpatient. FINAL DIAGNOSES: 1. Recurrent large right pleural effusion with concern for malignancy. 2. Status post thoracentesis/1.2 L of fluid removal. 3. History of gft-hatap-xhbs lung carcinoma, status post chemotherapy and radiation. 4. History of superior vena cava syndrome. 5. COPD. 6. History of paroxysmal atrial fibrillation. 7. Coronary artery disease with RICK. 8. Hypertension. 9. Status post CVA. 10. Diabetes mellitus type 2. 11. Renal insufficiency. 12. History of AV kenan reentrant tachycardia, status post ablation in 2017. DISCHARGE MEDICATIONS: List of medication was given to the patient. Please refer to medication reconciliation list. DISCHARGE INSTRUCTIONS: The patient discharged home. The patient was urged to follow up as an outpatient with oncologist, Dr. Salguero, who he followed prior. The patient to follow up with primary care provider to monitor renal parameters as well as his body shop technician, Dr. Bradley. Harsh Maher M.D. I have been assigned to dictate discharge summary on this account and I was not involved in the patient's management. Bhumika Montilla ([facility] DR: VIRGILIO JOB#: [id number] CC: FERNANDEZ
== END 2017-07-13 14:15 | disposition home or self-care (01) | DRG 143 ==
LOC: EMR 13:45 → 2E 14:40 → EDBEDREQ 16:21
PROC: 0W993ZZ Drainage of Right Pleural Cavity, Percutaneous Approach (ICD-10-PCS; principal; 2017-07-10)
DX: J90 Pleural effusion, not elsewhere classified (principal); I48.0 Paroxysmal atrial fibrillation; J44.9 Chronic obstructive pulmonary disease, unspecified; I25.2 Old myocardial infarction; Z85.118 Personal history of other malignant neoplasm of bronchus and lung; Z86.73 Personal history of transient ischemic attack (TIA), and cerebral infarction without residual deficits; I25.10 Atherosclerotic heart disease of native coronary artery without angina pectoris; E11.9 Type 2 diabetes mellitus without complications; Z79.01 Long term (current) use of anticoagulants; Z88.8 Allergy status to other drugs, medicaments and biological substances; Z87.891 Personal history of nicotine dependence; N40.0 Benign prostatic hyperplasia without lower urinary tract symptoms; Z95.5 Presence of coronary angioplasty implant and graft; E78.00 Pure hypercholesterolemia, unspecified; R00.0 Tachycardia, unspecified
CPT/HCPCS: 36415; 71045; 76942; 80048; 80053; 81003; 82248; 82550; 82553; 82962; 83605; 83615; 83880; 83986; 84484; 85025; 85610; 87040; 87070; 87116; 87205; 88104; 93005; 94640; 99285

== ENCOUNTER 2017-11-05 06:11 | Inpatient (IN) | payer MEDICARE, MEDICAID ==
[~2017-11-05] VITALS: Ht 176.5 cm; Wt 61.2 kg
[~2017-11-05 06:11] MED LIST changes: +ATORVASTATIN CA80 MG ORAL; +VITAMIN D1000 UNI1 ORAL; +WARFARIN SODIUM10 MG ORAL
[2017-11-05] MEDS ORDERED: Nitroglycerin 2% oint pkt TOPIC ONE ×2 (06:15→07:00)
[2017-11-05] MEDS ORDERED: Ipratropium 0.02% Inh Soln 2.5ml UD HHN ONE (06:15)
[2017-11-05] MEDS ORDERED: Albuterol ud Inhalation HHN ONE (06:15)
[2017-11-05] MEDS ORDERED: Labetalol 5mg/ml 20ml vial IV ONE (06:30)
[2017-11-05] MEDS ORDERED: Albuterol ud Inhalation ONE (06:34)
[2017-11-05] MEDS ORDERED: Ipratropium 0.02% Inh Soln 2.5ml UD ONE (06:34)
[2017-11-05 06:44] LABS: BASOPHILS % (AUTO) 1.3 % (0.0-2.0); EOSINOPHILS % (AUTO) 1.6 % (0.0-3.0); HEMATOCRIT 36.5 % (42.0-52.0); HEMOGLOBIN 11.7 G/DL (14.2-18.0); LYMPHOCYTES % (AUTO) 14.2 % (20.0-45.0); MEAN CORPUSCULAR VOLUME 99 FL (80-99); NEUTROPHILS % (AUTO) 76.8 % (45.0-75.0); PLATELET COUNT 143 K/UL (150-450); RED BLOOD COUNT 3.68 M/UL (4.70-6.10); WHITE BLOOD COUNT 7.8 K/UL (4.8-10.8)
--- NOTE | 2017-11-05 06:47 | Emergency Room Report ---
History of Present Illness General Chief Complaint: Dyspnea/Respdistress Source: Patient, EMS Present Illness HPI The patient presents with several days of increased shortness of breath. He has a history of congestive heart failure and prior pleural effusion. He also has a history of cancer. The patient is only on hydrochlorothiazide and is not taking Lasix at this time. He's been on Lasix in the past. Has has a history of hypertension. The patient denies any chest pain. The patient was transported by paramedics here. His initial oxygen saturation on room air was 92%. With oxygen he improved but was still dyspneic. They heard rales bilaterally and treated him with stacked sprays of nitroglycerin because he was also hypertensive. The patient has never been intubated. He denies prior use of a CPAP or BiPAP. The patient complains about a nonproductive cough. He's had no fevers and chills. There is no calf pain or edema. He has a history of non-small cell lung cancer. Allergies: Coded Allergies: BRITTANI INHIBITORS (Unverified Allergy, Unknown, 03/19/15) Patient History Past Medical History: see triage record Past Surgical History: PTCA, other - cardiac ablation for a fib Social History: Reports: smoking Social History Narrative from home Reviewed Nursing Documentation: PMH: Agreed; PSxH: Agreed Nursing Documentation-PMH Hx Cardiac Problems: Yes - CO, A-fib (post ablation in 2015) Hx Hypertension: Yes - high cholesterol Hx Pacemaker: No Hx COPD: Yes Hx Diabetes: Yes - type 2 Hx Cancer: Yes - Lung Hx Gastrointestinal Problems: No Hx Dialysis: No Hx Neurological Problems: Yes Hx Cerebrovascular Accident: Yes - 06/2016 Hx Seizures: No Review of Systems All Other Systems: negative except mentioned in HPI Physical Exam Vital Signs Date Time Temp Pulse Resp B/P (MAP) Pulse Ox O2 Delivery O2 Flow Rate FiO2 11/05/17 06:04 118 22 171/135 98 Nasal Cannula 2.0 Sp02 EP Interpretation: reviewed, abnormal - interpreted as low by me on O2 General Appearance: GCS 15, mild distress, Chronically Ill Head: normocephalic, atraumatic Eyes: bilateral eye normal inspection, bilateral eye PERRL, bilateral eye other - periorbital edema ENT: moist mucus membranes Respiratory: decreased breath sounds, other - dullness to percussion Cardiovascular #1: no edema, JVD - to forehead, tachycardia Cardiovascular #2: 2+ radial (L) Gastrointestinal: normal inspection, non tender, soft, abnormal bowel sounds, decreased bowel sounds Genitourinary: no CVA tenderness Musculoskeletal: back normal, gait/station normal, normal range of motion Neurologic: oriented x3, grossly normal Psychiatric: depressed affect Skin: normal color, other - clubbing Medical Decision Making Diagnostic Impression: Primary Impression: CHF (congestive heart failure) Qualified Codes: I50.33 - Acute on chronic diastolic (congestive) heart failure Additional Impressions: Hypertensive urgency Pleural effusion Renal insufficiency Possible SVC syndrome ER Course Patient presents with dyspnea and hypoxia. Based on his physical exam he appears to be in congestive failure and has been if fusion. Differential includes acute myocardial infarction, hypertensive emergency, hypertensive urgency, renal failure, superior vena cava syndrome amongst others. Evaluation will be with EKG, chest x-ray and labs. The patient will be treated with nitroglycerin glycerin ointment, Lasix. We may need to address his blood pressure more aggressively. At this time he will also get breathing treatments. If not improving we will consider BiPAP. R EJ started by me. EKG without injury. CXR with R pleural effusion (re-constituted from prior film ), also CHF. Labs with normal WBC, elevated BNP, normal troponin. Aggressive treatment of BP with improvement. Discussed with Dr. Maher who accepts admission. Laboratory Tests Test 11/05/17 06:21 11/05/17 06:34 White Blood Count 7.8 K/UL (4.8-10.8) Red Blood Count 3.68 M/UL (4.70-6.10) L Hemoglobin 11.7 G/DL (14.2-18.0) L Hematocrit 36.5 % (42.0-52.0) L Mean Corpuscular Volume 99 FL (80-99) Mean Corpuscular Hemoglobin 31.9 PG (27.0-31.0) H Mean Corpuscular Hemoglobin Concent 32.1 G/DL (32.0-36.0) Red Cell Distribution Width 19.0 % (11.6-14.8) H Platelet Count 143 K/UL (150-450) L Mean Platelet Volume 8.4 FL (6.5-10.1) Neutrophils (%) (Auto) 76.8 % (45.0-75.0) H Lymphocytes (%) (Auto) 14.2 % (20.0-45.0) L Monocytes (%) (Auto) 6.0 % (1.0-10.0) Eosinophils (%) (Auto) 1.6 % (0.0-3.0) Basophils (%) (Auto) 1.3 % (0.0-2.0) Prothrombin Time 16.8 SEC (9.30-11.50) H Prothrombin Time INR 1.6 (0.9-1.1) H PTT 26 SEC (23-33) Sodium Level 140 MMOL/L (136-145) Potassium Level 4.2 MMOL/L (3.5-5.1) Chloride Level 108 MMOL/L (98-107) H Carbon Dioxide Level 23 MMOL/L (21-32) Anion Gap 9 mmol/L (5-15) Blood Urea Nitrogen 23 mg/dL (7-18) H Creatinine 1.9 MG/DL (0.55-1.30) H Estimate Glomerular Filtration Rate 43.0 mL/min (>60) Glucose Level 137 MG/DL (74-106) H Calcium Level 8.2 MG/DL (8.5-10.1) L Total Bilirubin 0.4 MG/DL (0.2-1.0) Aspartate Amino Transferase (AST) 48 U/L (15-37) H Alanine Aminotransferase (ALT) 35 U/L (12-78) Alkaline Phosphatase 90 U/L (46-116) Total Creatine Kinase 147 U/L (26-308) Troponin I 0.016 ng/mL (0.000-0.056) Pro-B-Type Natriuretic Peptide 3703 pg/mL (0-125) H Total Protein 7.0 G/DL (6.4-8.2) Albumin 3.1 G/DL (3.4-5.0) L Globulin 3.9 g/dL Albumin/Globulin Ratio 0.8 (1.0-2.7) L Urine Color Pale yellow Urine Appearance Clear Urine pH 6 (4.5-8.0) Urine Specific Bassett 1.010 (1.005-1.035) Urine Protein 3+ (NEGATIVE) H Urine Glucose (UA) Negative (NEGATIVE) Urine Ketones Negative (NEGATIVE) Urine Occult Blood 1+ (NEGATIVE) H Urine Nitrite Negative (NEGATIVE) Urine Bilirubin Negative (NEGATIVE) Urine Urobilinogen Normal MG/DL (0.0-1.0) Urine Leukocyte Esterase Negative (NEGATIVE) Urine RBC 5-10 /HPF (0 - 0) H Urine WBC 2-4 /HPF (0 - 0) Urine Squamous Epithelial Cells Occasional /LPF Urine Bacteria Occasional /HPF (NONE) Urine Fine Granular Casts 0-2 /LPF (NONE) H Urine Opiates Screen Negative (NEGATIVE) Urine Barbiturates Screen Negative (NEGATIVE) Phencyclidine (PCP) Screen Negative (NEGATIVE) Urine Amphetamines Screen Negative (NEGATIVE) Urine Benzodiazepines Screen Negative (NEGATIVE) Urine Cocaine Screen Negative (NEGATIVE) Urine Marijuana (THC) Screen Negative (NEGATIVE) EKG Diagnostic Results Rate: tachycardiac Rhythm: NSR ST Segments: no acute changes Rhythm Strip Diag. Results EP Interpretation: yes Rhythm: no PVC's, no ectopy, other - ST Chest X-Ray Diagnostic Results Chest X-Ray Diagnostic Results : Chest X-Ray Ordered: Yes # of Views/Limited/Complete: 1 View Indication: Shortness of Breath EP Interpretation: Yes Interpretation: other - R effusion and CHF Impression: Other Electronically Signed by: Electronically signed by Moe Rajan MD Last Vital Signs Date Time Temp Pulse Resp B/P (MAP) Pulse Ox O2 Delivery O2 Flow Rate FiO2 11/05/17 13:13 96 114/72 11/05/17 12:04 97.8 20 95 Nasal Cannula 3.0 97.8 Status: improved Disposition: ADMITTED INPATIENT Condition: Serious Referrals: NON PHYSICIAN (PCP) Moe Rajan M.D. Nov 05, 2017 06:47
[2017-11-05 06:54] VITALS: BP 185/133
[2017-11-05 06:55] LABS: ANION GAP 9 mmol/L (5-15); BLOOD UREA NITROGEN 23 mg/dL (7-18); CALCIUM 8.2 MG/DL (8.5-10.1); CARBON DIOXIDE 23 MMOL/L (21-32); CHLORIDE 108 MMOL/L (98-107); CREATININE 1.9 MG/DL (0.55-1.30); POTASSIUM 4.2 MMOL/L (3.5-5.1); SODIUM 140 MMOL/L (136-145)
[2017-11-05 06:59] LABS: INR 1.6 (0.9-1.1)
[2017-11-05 07:04] LABS: APPEARANCE,URINE CLEAR; BILIRUBIN, URINE NEGATIVE (NEGATIVE); COLOR,URINE PALE YELLOW; GLUCOSE, URINE (UA) NEGATIVE (NEGATIVE); KETONES,URINE NEGATIVE (NEGATIVE); LEUKOCYTE ESTERASE ,URINE NEGATIVE (NEGATIVE); NITRITE,URINE NEGATIVE (NEGATIVE); PH,URINE 6 (4.5-8.0); PROTEIN,URINE 3+ (NEGATIVE); UROBILINOGEN,URINE NORMAL MG/DL (0.0-1.0)
[2017-11-05 07:06] LABS: ALANINE AMINOTRANSFERASE 35 U/L (12-78); ALBUMIN 3.1 G/DL (3.4-5.0); ALBUMIN/GLOBULIN RATIO 0.8 (1.0-2.7); ALKALINE PHOSPHATASE 90 U/L (46-116); ASPARTATE AMINO TRANSFERASE 48 U/L (15-37); BILIRUBIN,TOTAL 0.4 MG/DL (0.2-1.0); CREATINE KINASE 147 U/L (26-308)
[2017-11-05 08:07] VITALS: BP 132/87
[2017-11-05 09:00] VITALS: BP 154/99
[2017-11-05] MEDS: Nitroglycerin Subl 0.4mg tab SL ONE ×2 (09:45→11:10)
--- NOTE | 2017-11-05 10:18 | Diagnostic Imaging Report ---
Indication: Dyspnea Technique: One view of the chest Comparison: 07/10/2017 Findings: Interim development of a moderate to large right-sided pleural effusion. Interim development of mild interstitial edema. The heart is borderline enlarged. The left pleural space is clear Impression: Moderate to large right pleural effusion and interstitial edema, developing since 07/10/2017
[2017-11-05] MEDS: HYDROcodone/Acetamin 10/325 tab ORAL PRN ×3 (11:08→21:33)
[2017-11-05] MEDS: Aspirin EC 81mg tab ORAL SCH (11:08)
[2017-11-05] MEDS: Vitamin D 1000 IU Tab ORAL SCH (11:08)
[2017-11-05] MEDS: cloNIDine 0.2mg Tab ORAL SCH ×3 (11:09→17:17)
[2017-11-05] MEDS: Allopurinol 100mg Tab ORAL SCH ×2 (11:09→17:16)
[2017-11-05] MEDS: Advair 250/50 Inhaler - 14 dose INH SCH ×2 (11:10→20:47)
[2017-11-05] MEDS: NovoLOG Insulin Flexpen SUBQ SCH ×3 (11:44→21:00)
[2017-11-05 12:04] VITALS: BP 124/76
[2017-11-05] MEDS: Labetalol 200mg tab ORAL SCH ×2 (13:13→21:00)
[2017-11-05 16:00] VITALS: BP 107/78
[2017-11-05] MEDS: GlipiZIDE 5mg tab ORAL SCH (16:36)
[2017-11-05] MEDS ORDERED: Warfarin Sodium 10mg ORAL SCH (17:00)
--- NOTE | 2017-11-05 18:00 | History and Physical Report ---
DATE OF ADMISSION: 11/05/2017 CHIEF COMPLAINT: Shortness of breath. HISTORY OF PRESENT ILLNESS: This is a 67-year-old male, who is always admitted under my care, but has a rather fragmented care since he has another primary care physician outside of the hospital and he has multiple consultants outside of the hospital. The patient presented to the emergency department complaining of gradually increasing dyspnea. PAST MEDICAL HISTORY: 1. Ischemic heart disease. 2. Cardiomyopathy. 3. Hypertensive cardiovascular disease. 4. History of lung CA, on chemotherapy. 5. History of paroxysmal atrial fibrillation. 6. COPD. 7. Peripheral vascular disease. 8. History of DVTs. 9. History of pulmonary emboli. 10. Type 2 diabetes mellitus. MEDICATIONS: [place] p.r.n., allopurinol, Ecotrin, atorvastatin, Coreg, vitamin D3, clonidine, Benadryl, glipizide, hydralazine, hydrochlorothiazide, nitroglycerin, Protonix, tamsulosin, Brilinta, and Coumadin. ALLERGIES: BRITTANI inhibitors. FAMILY HISTORY: Unremarkable. SOCIAL HISTORY: He lives at home. HABITS: He is a past heavy cigarette smoker. REVIEW OF SYSTEMS: ENDOCRINE: Significant for type 2 diabetes mellitus. RESPIRATORY: Significant for orthopnea, paroxysmal nocturnal dyspnea, and dyspnea on effort. CARDIOVASCULAR: Please refer to past medical history. GASTROINTESTINAL: No history of hematochezia, melena, hematemesis, diarrhea, or constipation. GENITOURINARY: Significant for nocturia. He denies hematuria. NEUROLOGICAL: History of stroke, syncope, and Parkinson disease. PHYSICAL EXAMINATION: GENERAL: This is an elderly, male, who is in no acute distress. VITAL SIGNS: Blood pressure 114/72, pulse 96 and regular, respirations 20, and temperature 98. HEENT: The head is normocephalic and atraumatic. Pupils are equal, round, and reactive to light and accommodation consensually. NECK: Supple. Trachea midline. No lymphadenopathy or thyromegaly. LUNGS: Bilateral wheezes. HEART: Regular rate and rhythm without rubs, murmurs, or gallops. ABDOMEN: Soft and nontender. Bowel sounds were active. EXTREMITIES: No clubbing, cyanosis, or edema. NEUROLOGICAL: He is alert and oriented x4. Cranial nerves II through XII intact. LABORATORY AND ANCILLARY DATA: Chest x-ray, moderate to large right pleural effusion and interstitial edema. CBC within normal limits. BMP within normal limits. ASSESSMENT: 1. Re-accumulation of right pleural effusion, rule out malignant effusion. 2. Ischemic heart disease. 3. Cardiomyopathy. 4. Hypertensive cardiovascular disease. 5. History of lung cancer, on chemotherapy. 6. History of paroxysmal atrial fibrillation. 7. Chronic obstructive pulmonary disease. 8. Peripheral vascular disease. 9. History of deep venous thrombosis. 10. History of pulmonary emboli. 11. Type 2 diabetes mellitus. PLAN: 1. Continue home medications. 2. Pulmonary consult. Harsh Maher M.D. DR: ARJUN JOB#: [id number] CC:
[2017-11-05 20:00] VITALS: BP 105/70
[2017-11-05] MEDS: Enoxaparin 60mg Inj SUBQ SCH ×2 (21:00→21:39)
[2017-11-05] MEDS: Tamsulosin 0.4mg cap ORAL SCH (21:32)
[2017-11-05] MEDS: Atorvastatin 80mg tab ORAL SCH (21:32)
--- NOTE | 2017-11-05 21:43 | Pulmonology Progress Note ---
Assessment/Plan Assessment/Plan ASSESSMENT: 1. Re-accumulation of right pleural effusion, rule out malignant effusion. 2. Ischemic heart disease. 3. Cardiomyopathy, significantly elevated NPA level 4. Hypertensive cardiovascular disease. 5. History of lung cancer, on chemotherapy. 6. History of paroxysmal atrial fibrillation. 7. Chronic obstructive pulmonary disease. 8. Peripheral vascular disease. 9. History of deep venous thrombosis. 10. History of pulmonary emboli. 11. Type 2 diabetes mellitus. PLAN: 1. Continue home medications. 2. Diuresis PRN 3. Oxygen PRN 4. Thoracentesis once INR at safe level 5. Atrovent HHN PRN Q6 6. PPX: Coumadin History: The patient is a 67 year old man who pesents with several days of increased shortness of breath. He has a history of congestive heart failure, prior pleural effusion, Non Small Cell Lung cancer. Not taking Lasix prior to admission although has been on Lasix in the past. Has has a history of hypertension. T The patient presented to the emergency department complaining of gradually increasing dyspnea, a nonproductive cough. He's had no fevers and chills. There is no Chest pain, Hemoptysis or calf pain/edema. PAST MEDICAL HISTORY: 1. Ischemic heart disease. 2. Cardiomyopathy. 3. Hypertensive cardiovascular disease. 4. History of lung CA, on chemotherapy. 5. History of paroxysmal atrial fibrillation. 6. COPD. 7. Peripheral vascular disease. 8. History of DVTs. 9. History of pulmonary emboli. 10. Type 2 diabetes mellitus. MEDICATIONS: [place] p.r.n., allopurinol, Ecotrin, atorvastatin, Coreg, vitamin D3, clonidine, Benadryl, glipizide, hydralazine, hydrochlorothiazide, nitroglycerin, Protonix, tamsulosin, Brilinta, and Coumadin. ALLERGIES: BRITTANI inhibitors. FAMILY HISTORY: Unremarkable. SOCIAL HISTORY: He lives at home. HABITS: He is a past heavy cigarette smoker. REVIEW OF SYSTEMS: ENDOCRINE: Significant for type 2 diabetes mellitus. RESPIRATORY: Significant for orthopnea, paroxysmal nocturnal dyspnea, and dyspnea on effort. CARDIOVASCULAR: Please refer to past medical history. GASTROINTESTINAL: No history of hematochezia, melena, hematemesis, diarrhea, or constipation. GENITOURINARY: Significant for nocturia. He denies hematuria. NEUROLOGICAL: History of stroke, syncope, and Parkinson disease. Allergies: Coded Allergies: BRITTANI INHIBITORS (Unverified Allergy, Unknown, 03/19/15) Nursing Documentation-PMH Hx Cardiac Problems: Yes - [place], A-fib (post ablation in 2015) Hx Hypertension: Yes - high cholesterol Hx Pacemaker: No Hx COPD: Yes Hx Diabetes: Yes - type 2 Hx Cancer: Yes - Lung Hx Gastrointestinal Problems: No Hx Dialysis: No Hx Neurological Problems: Yes Hx Cerebrovascular Accident: Yes - 06/2016 Hx Seizures: No Physical Exam Vital Signs Date Time Temp Pulse Resp B/P (MAP) Pulse Ox O2 Delivery O2 Flow Rate FiO2 11/05/17 06:04 118 22 171/135 98 Nasal Cannula 2.0 Sp02 EP Interpretation: reviewed, abnormal - interpreted as low by me on O2 General Appearance: GCS 15, mild distress, Chronically Ill Head: normocephalic, atraumatic Eyes: bilateral eye normal inspection, bilateral eye PERRL, bilateral eye other - periorbital edema ENT: moist mucus membranes Respiratory: decreased breath sounds, other - dullness to percussion Cardiovascular #1: no edema, JVD - to forehead, tachycardia Cardiovascular #2: 2+ radial (L) Gastrointestinal: normal inspection, non tender, soft, abnormal bowel sounds, decreased bowel sounds Genitourinary: no CVA tenderness Musculoskeletal: back normal, gait/station normal, normal range of motion Neurologic: oriented x3, grossly normal Psychiatric: depressed affect Skin: normal color, other - clubbing PHYSICAL EXAMINATION: GENERAL: This is an elderly, male, who is in no acute distress. VITAL SIGNS: Blood pressure 114/72, pulse 96 and regular, respirations 20, and temperature 98. HEENT: The head is normocephalic and atraumatic. Pupils are equal, round, and reactive to light and accommodation consensually. NECK: Supple. Trachea midline. No lymphadenopathy or thyromegaly. LUNGS: Bilateral wheezes. HEART: Regular rate and rhythm without rubs, murmurs, or gallops. ABDOMEN: Soft and nontender. Bowel sounds were active. EXTREMITIES: No clubbing, cyanosis, or edema. NEUROLOGICAL: He is alert and oriented x4. Cranial nerves II through XII intact. LABORATORY AND ANCILLARY DATA: Chest x-ray, moderate to large right pleural effusion and interstitial edema. CBC within normal limits. BMP within normal limits. Medical Decision Making Diagnostic Impression: Primary Impression: CHF (congestive heart failure) Qualified Codes: I50.33 - Acute on chronic diastolic (congestive) heart failure Additional Impressions: Hypertensive urgency Pleural effusion Renal insufficiency R EJ started by me. EKG without injury. CXR with R pleural effusion (re-constituted from prior film ), also CHF. Labs with normal WBC, elevated BNP, normal troponin. Aggressive treatment of BP with improvement. Discussed with Dr. Maher who accepts admission. Laboratory Tests Test 11/05/17 06:21 11/05/17 06:34 White Blood Count 7.8 K/UL (4.8-10.8) Red Blood Count 3.68 M/UL (4.70-6.10) L Hemoglobin 11.7 G/DL (14.2-18.0) L Hematocrit 36.5 % (42.0-52.0) L Mean Corpuscular Volume 99 FL (80-99) Mean Corpuscular Hemoglobin 31.9 PG (27.0-31.0) H Mean Corpuscular Hemoglobin Concent 32.1 G/DL (32.0-36.0) Red Cell Distribution Width 19.0 % (11.6-14.8) H Platelet Count 143 K/UL (150-450) L Mean Platelet Volume 8.4 FL (6.5-10.1) Neutrophils (%) (Auto) 76.8 % (45.0-75.0) H Lymphocytes (%) (Auto) 14.2 % (20.0-45.0) L Monocytes (%) (Auto) 6.0 % (1.0-10.0) Eosinophils (%) (Auto) 1.6 % (0.0-3.0) Basophils (%) (Auto) 1.3 % (0.0-2.0) Prothrombin Time 16.8 SEC (9.30-11.50) H Prothrombin Time INR 1.6 (0.9-1.1) H PTT 26 SEC (23-33) Sodium Level 140 MMOL/L (136-145) Potassium Level 4.2 MMOL/L (3.5-5.1) Chloride Level 108 MMOL/L (98-107) H Carbon Dioxide Level 23 MMOL/L (21-32) Anion Gap 9 mmol/L (5-15) Blood Urea Nitrogen 23 mg/dL (7-18) H Creatinine 1.9 MG/DL (0.55-1.30) H Estimate Glomerular Filtration Rate 43.0 mL/min (>60) Glucose Level 137 MG/DL (74-106) H Calcium Level 8.2 MG/DL (8.5-10.1) L Total Bilirubin 0.4 MG/DL (0.2-1.0) Aspartate Amino Transferase (AST) 48 U/L (15-37) H Alanine Aminotransferase (ALT) 35 U/L (12-78) Alkaline Phosphatase 90 U/L (46-116) Total Creatine Kinase 147 U/L (26-308) Troponin I 0.016 ng/mL (0.000-0.056) Pro-B-Type Natriuretic Peptide 3703 pg/mL (0-125) H Total Protein 7.0 G/DL (6.4-8.2) Albumin 3.1 G/DL (3.4-5.0) L Globulin 3.9 g/dL Albumin/Globulin Ratio 0.8 (1.0-2.7) L Urine Color Pale yellow Urine Appearance Clear Urine pH 6 (4.5-8.0) Urine Specific [place] 1.010 (1.005-1.035) Urine Protein 3+ (NEGATIVE) H Urine Glucose (UA) Negative (NEGATIVE) Urine Ketones Negative (NEGATIVE) Urine Occult Blood 1+ (NEGATIVE) H Urine Nitrite Negative (NEGATIVE) Urine Bilirubin Negative (NEGATIVE) Urine Urobilinogen Normal MG/DL (0.0-1.0) Urine Leukocyte Esterase Negative (NEGATIVE) Urine RBC 5-10 /HPF (0 - 0) H Urine WBC 2-4 /HPF (0 - 0) Urine Squamous Epithelial Cells Occasional /LPF Urine Bacteria Occasional /HPF (NONE) Urine Fine Granular Casts 0-2 /LPF (NONE) H Urine Opiates Screen Negative (NEGATIVE) Urine Barbiturates Screen Negative (NEGATIVE) Phencyclidine (PCP) Screen Negative (NEGATIVE) Urine Amphetamines Screen Negative (NEGATIVE) Urine Benzodiazepines Screen Negative (NEGATIVE) Urine Cocaine Screen Negative (NEGATIVE) Urine Marijuana (THC) Screen Negative (NEGATIVE) EKG Diagnostic Results Rate: tachycardiac Rhythm: NSR ST Segments: no acute changes Rhythm Strip Diag. Results EP Interpretation: yes Rhythm: no PVC's, no ectopy, other - ST Chest X-Ray Diagnostic Results Chest X-Ray Diagnostic Results : Chest X-Ray Ordered: Yes # of Views/Limited/Complete: 1 View Indication: Shortness of Breath EP Interpretation: Yes Interpretation: other - R effusion and CHF Impression: Other Electronically Signed by: Electronically signed by Moe Rajan MD Last Vital Signs Date Time Temp Pulse Resp B/P (MAP) Pulse Ox O2 Delivery O2 Flow Rate FiO2 11/05/17 13:13 96 114/72 11/05/17 12:04 97.8 20 95 Nasal Cannula 3.0 97.8 Subjective ROS Limited/Unobtainable: No Constitutional: Reports: no symptoms HEENT: Repors: no symptoms Respiratory: Reports: shortness of breath Cardiovascular: Reports: other Gastrointestinal/Abdominal: Reports: no symptoms Genitourinary: Reports: no symptoms Neurologic: Reports: no symptoms Psychiatric: Reports: no symptoms Skin: Reports: no symptoms Endocrine: Reports: no symptoms Hematologic: Reports: no symptoms Musculoskeletal: Reports: no symptoms Allergies: Coded Allergies: BRITTANI INHIBITORS (Unverified Allergy, Unknown, 03/19/15) All Systems: reviewed and negative except above Objective Last 24 Hour Vital Signs Date Time Temp Pulse Resp B/P (MAP) Pulse Ox O2 Delivery O2 Flow Rate FiO2 11/05/17 21:07 Nasal Cannula 3.0 32 11/05/17 21:07 98 Nasal Cannula 3.0 32 11/05/17 20:45 Nasal Cannula 11/05/17 20:43 75 18 98 Nasal Cannula 3.0 32 11/05/17 20:00 97.9 83 12 105/70 96 Nasal Cannula 3.0 97.9 11/05/17 17:17 107/78 11/05/17 16:00 80 11/05/17 16:00 97.2 82 20 107/78 98 Nasal Cannula 3.0 97.2 11/05/17 13:13 96 114/72 11/05/17 13:00 114/72 11/05/17 12:04 97.8 87 20 124/76 95 Nasal Cannula 3.0 97.8 11/05/17 12:00 93 11/05/17 11:09 154/99 11/05/17 09:45 154/99 11/05/17 09:06 83 11/05/17 09:00 97.6 95 19 154/99 94 Nasal Cannula 3.0 97.6 11/05/17 08:50 207.9 88 18 132/87 100 Nasal Cannula 3.0 11/05/17 08:07 88 18 132/87 100 Nasal Cannula 3.0 11/05/17 08:04 97.7 11/05/17 07:19 100 165/106 11/05/17 07:11 102 22 Nasal Cannula 3.0 11/05/17 06:58 185/133 11/05/17 06:55 102 22 97 Nasal Cannula 2.0 11/05/17 06:54 97.7 102 18 185/133 100 Nasal Cannula 3.0 97.7 11/05/17 06:38 110 18 100 2.0 11/05/17 06:35 110 18 Nasal Cannula 2.0 11/05/17 06:04 118 22 171/135 98 Nasal Cannula 2.0 Laboratory Tests 11/05/17 06:21: White Blood Count 7.8, Red Blood Count 3.68L, Hemoglobin 11.7L, Hematocrit 36.5L , Mean Corpuscular Volume 99, Mean Corpuscular Hemoglobin 31.9H, Mean Corpuscular Hemoglobin Concent 32.1, Red Cell Distribution Width 19.0H, Platelet Count 143L, Mean Platelet Volume 8.4, Neutrophils (%) (Auto) 76.8H, Lymphocytes (%) (Auto) 14.2L, Monocytes (%) (Auto) 6.0, Eosinophils (%) (Auto) 1.6, Basophils (%) (Auto) 1.3, Prothrombin Time 16.8H, Prothromb Time International Ratio 1.6H, Activated Partial Thromboplast Time 26, Sodium Level 140, Potassium Level 4.2, Chloride Level 108H, Carbon Dioxide Level 23, Anion Gap 9, Blood Urea Nitrogen 23H, Creatinine 1.9H, Estimat Glomerular Filtration Rate 43.0, Glucose Level 137H, Calcium Level 8.2L, Total Bilirubin 0.4, Aspartate Amino Transf (AST/SGOT) 48H, Alanine Aminotransferase (ALT/SGPT) 35, Alkaline Phosphatase 90, Total Creatine Kinase 147, Troponin I 0.016, Pro-B- Type Natriuretic Peptide 3703H, Total Protein 7.0, Albumin 3.1L, Globulin 3.9, Albumin/Globulin Ratio 0.8L 11/05/17 06:34: Urine Color Pale yellow, Urine Appearance Clear, Urine pH 6, Urine Specific [place] 1.010, Urine Protein 3+H, Urine Glucose (UA) Negative, Urine Ketones Negative, Urine Occult Blood 1+H, Urine Nitrite Negative, Urine Bilirubin Negative, Urine Urobilinogen Normal, Urine Leukocyte Esterase Negative, Urine RBC 5-10H, Urine WBC 2-4, Urine Squamous Epithelial Cells Occasional, Urine Bacteria Occasional, Urine Fine Granular Casts 0-2H, Urine Opiates Screen Negative, Urine Barbiturates Screen Negative, Phencyclidine (PCP) Screen Negative, Urine Amphetamines Screen Negative, Urine Benzodiazepines Screen Negative, Urine Cocaine Screen Negative, Urine Marijuana (THC) Screen Negative Current Medications Medications (Trade) Dose Ordered Sig/Allen Route PRN Reason Start Time Stop Time Status Last Admin Dose Admin Acetaminophen/ Hydrocodone Bitart ([place] 10/325) 1 tab Q4H PRN ORAL For Pain 11/05/17 09:45 11/12/17 09:44 11/05/17 16:38 Allopurinol (Zyloprim) 100 mg BID ORAL 11/05/17 10:00 12/05/17 09:59 11/05/17 11:09 Aspirin (Ecotrin) 81 mg DAILY ORAL 11/05/17 10:00 12/05/17 09:59 11/05/17 11:08 Atorvastatin Calcium (Lipitor) 80 mg BEDTIME ORAL 11/05/17 21:00 12/05/17 20:59 Clonidine HCl (Catapres tab) 0.2 mg THREE TIMES A DAY ORAL 11/05/17 09:45 12/05/17 09:44 11/05/17 17:17 Dextrose (Dextrose 50%) 25 ml STAT PRN IV Hypoglycemia 11/05/17 10:00 12/05/17 09:59 Dextrose (Dextrose 50%) 50 ml STAT PRN IV Hypoglycemia 11/05/17 10:00 12/05/17 09:59 Diphenhydramine HCl (Benadryl) 25 mg BEDTIME ORAL 11/05/17 21:00 12/05/17 20:59 Enoxaparin Sodium (Lovenox) 60 mg EVERY 12 HOURS SUBQ 11/05/17 21:00 12/05/17 20:59 Glipizide (Glucotrol) 5 mg BIAC ORAL 11/05/17 16:30 12/05/17 16:29 11/05/17 16:36 Hydrochlorothiazide (Hydrodiuril) 25 mg DAILY ORAL 11/05/17 09:45 12/05/17 09:44 11/05/17 11:08 Insulin Aspart (NovoLOG) BEFORE MEALS AND HS SUBQ 11/05/17 11:30 12/05/17 11:29 11/05/17 16:37 Labetalol HCl (Normodyne) 300 mg Q12HR ORAL 11/05/17 11:00 12/05/17 10:59 11/05/17 13:13 Pantoprazole (Protonix) 40 mg DAILY ORAL 11/05/17 09:45 12/05/17 09:44 11/05/17 11:08 Salmeterol Xinafoate/ Fluticasone (Advair 250/50 Diskus) 1 puffs EVERY 12 HOURS INH 11/05/17 11:00 12/05/17 10:59 11/05/17 11:10 Tamsulosin HCl (Flomax) 0.4 mg BEDTIME ORAL 11/05/17 21:00 12/05/17 20:59 Vitamin D (Vitamin D) 1,000 intlu DAILY ORAL 11/05/17 09:45 12/05/17 09:44 11/05/17 11:08 Warfarin Sodium (Coumadin per pharmacy) 1 ea DAILY PRN MISC PER PROTOCOL 11/05/17 10:45 12/05/17 10:44 Moe Hand MD Nov 05, 2017 21:43
[2017-11-05] MEDS ORDERED: Ipratropium 0.02% Inh Soln 2.5ml UD HHN PRN (22:00)
[2017-11-06] VITALS: BP 130/80
[2017-11-06 04:00] VITALS: BP 106/81
[2017-11-06 06:12] LABS: INR 2.2 (0.9-1.1)
[2017-11-06] MEDS: NovoLOG Insulin Flexpen SUBQ SCH ×4 (06:25→20:52)
[2017-11-06] MEDS: GlipiZIDE 5mg tab ORAL SCH ×2 (06:31→16:55)
--- NOTE | 2017-11-06 07:41 | General Progress Note ---
Assessment/Plan Assessment/Plan Large pleural effusion - for thoracentesis. COPD exacerbation - per Pul. CHF - may need repeat w/u Subjective Allergies: Coded Allergies: BRITTANI INHIBITORS (Unverified Allergy, Unknown, 03/19/15) Subjective Still dyspneic Objective Last 24 Hour Vital Signs Date Time Temp Pulse Resp B/P (MAP) Pulse Ox O2 Delivery O2 Flow Rate FiO2 11/06/17 04:00 89 11/06/17 04:00 97.9 89 16 106/81 99 Nasal Cannula 2.0 97.9 11/06/17 00:00 97.9 80 16 130/80 100 Nasal Cannula 3.0 97.9 11/06/17 00:00 75 11/05/17 21:07 Nasal Cannula 3.0 32 11/05/17 21:07 98 Nasal Cannula 3.0 32 11/05/17 21:00 83 105/70 11/05/17 20:45 Nasal Cannula 11/05/17 20:43 75 18 98 Nasal Cannula 3.0 32 11/05/17 20:00 81 11/05/17 20:00 97.9 83 12 105/70 96 Nasal Cannula 3.0 97.9 11/05/17 17:17 107/78 11/05/17 16:00 80 11/05/17 16:00 97.2 82 20 107/78 98 Nasal Cannula 3.0 97.2 11/05/17 13:13 96 114/72 11/05/17 13:00 114/72 11/05/17 12:04 97.8 87 20 124/76 95 Nasal Cannula 3.0 97.8 11/05/17 12:00 93 11/05/17 11:09 154/99 11/05/17 09:45 154/99 11/05/17 09:06 83 11/05/17 09:00 97.6 95 19 154/99 94 Nasal Cannula 3.0 97.6 11/05/17 08:50 207.9 88 18 132/87 100 Nasal Cannula 3.0 11/05/17 08:07 88 18 132/87 100 Nasal Cannula 3.0 11/05/17 08:04 97.7 Intake and Output 11/05/17 11/06/17 19:00 07:00 Intake Total 250 ml 960 ml Output Total 950 ml 825 ml Balance -700 ml 135 ml Intake Oral 250 ml 960 ml Output Urine Total 950 ml 825 ml # Voids 3 2 Laboratory Tests 11/06/17 04:33: Prothrombin Time 23.4H, Prothromb Time International Ratio 2.2H, Lactate Dehydrogenase 292H Height (Feet): 5 Height (Inches): 9.49 Weight (Pounds): 141 Objective Cv RR Lungs B wheezes Abd SNT. BS + E +2 edema Harsh Maher MD Nov 06, 2017 07:41
[2017-11-06 08:00] VITALS: BP 148/91
[2017-11-06] MEDS: Labetalol 200mg tab ORAL SCH ×2 (08:55→20:50)
[2017-11-06] MEDS: Aspirin EC 81mg tab ORAL SCH (08:55)
[2017-11-06] MEDS: Vitamin D 1000 IU Tab ORAL SCH (08:55)
[2017-11-06] MEDS: Allopurinol 100mg Tab ORAL SCH ×2 (08:56→17:49)
[2017-11-06] MEDS: cloNIDine 0.2mg Tab ORAL SCH ×3 (08:56→17:49)
[2017-11-06] MEDS: Enoxaparin 60mg Inj SUBQ SCH ×2 (08:57→20:52)
[2017-11-06] MEDS: HYDROcodone/Acetamin 10/325 tab ORAL PRN ×3 (09:04→20:51)
[2017-11-06] MEDS: Advair 250/50 Inhaler - 14 dose INH SCH ×2 (10:22→21:04)
[2017-11-06] MEDS ORDERED: Lidocaine 1% Plain 30 ml INJ ONE (11:00)
--- NOTE | 2017-11-06 11:30 | Pulmonology Progress Note ---
Assessment/Plan Assessment/Plan ASSESSMENT: 1. Re-accumulation of right pleural effusion, rule out malignant effusion. 2. Ischemic heart disease. 3. Cardiomyopathy, significantly elevated NPA level 4. Hypertensive cardiovascular disease. 5. History of lung cancer, on chemotherapy. 6. History of paroxysmal atrial fibrillation. 7. Chronic obstructive pulmonary disease. 8. Peripheral vascular disease. 9. History of deep venous thrombosis. 10. History of pulmonary emboli. 11. Type 2 diabetes mellitus. PLAN: 1. Continue home medications. 2. Diuresis PRN 3. Oxygen PRN 4. Thoracentesis once INR at safe level 5. Atrovent HHN PRN Q6 6. PPX: Coumadin History: The patient is a 67 year old man who pesents with several days of increased shortness of breath. He has a history of congestive heart failure, prior pleural effusion, Non Small Cell Lung cancer. Not taking Lasix prior to admission although has been on Lasix in the past. Has has a history of hypertension. T The patient presented to the emergency department complaining of gradually increasing dyspnea, a nonproductive cough. He's had no fevers and chills. There is no Chest pain, Hemoptysis or calf pain/edema. PAST MEDICAL HISTORY: 1. Ischemic heart disease. 2. Cardiomyopathy. 3. Hypertensive cardiovascular disease. 4. History of lung CA, on chemotherapy. 5. History of paroxysmal atrial fibrillation. 6. COPD. 7. Peripheral vascular disease. 8. History of DVTs. 9. History of pulmonary emboli. 10. Type 2 diabetes mellitus. MEDICATIONS: [place] p.r.n., allopurinol, Ecotrin, atorvastatin, Coreg, vitamin D3, clonidine, Benadryl, glipizide, hydralazine, hydrochlorothiazide, nitroglycerin, Protonix, tamsulosin, Brilinta, and Coumadin. ALLERGIES: BRITTANI inhibitors. FAMILY HISTORY: Unremarkable. SOCIAL HISTORY: He lives at home. HABITS: He is a past heavy cigarette smoker. REVIEW OF SYSTEMS: ENDOCRINE: Significant for type 2 diabetes mellitus. RESPIRATORY: Significant for orthopnea, paroxysmal nocturnal dyspnea, and dyspnea on effort. CARDIOVASCULAR: Please refer to past medical history. GASTROINTESTINAL: No history of hematochezia, melena, hematemesis, diarrhea, or constipation. GENITOURINARY: Significant for nocturia. He denies hematuria. NEUROLOGICAL: History of stroke, syncope, and Parkinson disease. Allergies: Coded Allergies: BRITTANI INHIBITORS (Unverified Allergy, Unknown, 03/19/15) Nursing Documentation-PMH Hx Cardiac Problems: Yes - PA, A-fib (post ablation in 2015) Hx Hypertension: Yes - high cholesterol Hx Pacemaker: No Hx COPD: Yes Hx Diabetes: Yes - type 2 Hx Cancer: Yes - Lung Hx Gastrointestinal Problems: No Hx Dialysis: No Hx Neurological Problems: Yes Hx Cerebrovascular Accident: Yes - 06/2016 Hx Seizures: No Physical Exam Vital Signs Date Time Temp Pulse Resp B/P (MAP) Pulse Ox O2 Delivery O2 Flow Rate FiO2 11/05/17 06:04 118 22 171/135 98 Nasal Cannula 2.0 Sp02 EP Interpretation: reviewed, abnormal - interpreted as low by me on O2 General Appearance: GCS 15, mild distress, Chronically Ill Head: normocephalic, atraumatic Eyes: bilateral eye normal inspection, bilateral eye PERRL, bilateral eye other - periorbital edema ENT: moist mucus membranes Respiratory: decreased breath sounds, other - dullness to percussion Cardiovascular #1: no edema, JVD - to forehead, tachycardia Cardiovascular #2: 2+ radial (L) Gastrointestinal: normal inspection, non tender, soft, abnormal bowel sounds, decreased bowel sounds Genitourinary: no CVA tenderness Musculoskeletal: back normal, gait/station normal, normal range of motion Neurologic: oriented x3, grossly normal Psychiatric: depressed affect Skin: normal color, other - clubbing PHYSICAL EXAMINATION: GENERAL: This is an elderly, male, who is in no acute distress. VITAL SIGNS: Blood pressure 114/72, pulse 96 and regular, respirations 20, and temperature 98. HEENT: The head is normocephalic and atraumatic. Pupils are equal, round, and reactive to light and accommodation consensually. NECK: Supple. Trachea midline. No lymphadenopathy or thyromegaly. LUNGS: Bilateral wheezes. HEART: Regular rate and rhythm without rubs, murmurs, or gallops. ABDOMEN: Soft and nontender. Bowel sounds were active. EXTREMITIES: No clubbing, cyanosis, or edema. NEUROLOGICAL: He is alert and oriented x4. Cranial nerves II through XII intact. LABORATORY AND ANCILLARY DATA: Chest x-ray, moderate to large right pleural effusion and interstitial edema. CBC within normal limits. BMP within normal limits. Medical Decision Making Diagnostic Impression: Primary Impression: CHF (congestive heart failure) Qualified Codes: I50.33 - Acute on chronic diastolic (congestive) heart failure Additional Impressions: Hypertensive urgency Pleural effusion Renal insufficiency R EJ started by me. EKG without injury. CXR with R pleural effusion (re-constituted from prior film ), also CHF. Labs with normal WBC, elevated BNP, normal troponin. Aggressive treatment of BP with improvement. Discussed with Dr. Maher who accepts admission. Laboratory Tests Test 11/05/17 06:21 11/05/17 06:34 White Blood Count 7.8 K/UL (4.8-10.8) Red Blood Count 3.68 M/UL (4.70-6.10) L Hemoglobin 11.7 G/DL (14.2-18.0) L Hematocrit 36.5 % (42.0-52.0) L Mean Corpuscular Volume 99 FL (80-99) Mean Corpuscular Hemoglobin 31.9 PG (27.0-31.0) H Mean Corpuscular Hemoglobin Concent 32.1 G/DL (32.0-36.0) Red Cell Distribution Width 19.0 % (11.6-14.8) H Platelet Count 143 K/UL (150-450) L Mean Platelet Volume 8.4 FL (6.5-10.1) Neutrophils (%) (Auto) 76.8 % (45.0-75.0) H Lymphocytes (%) (Auto) 14.2 % (20.0-45.0) L Monocytes (%) (Auto) 6.0 % (1.0-10.0) Eosinophils (%) (Auto) 1.6 % (0.0-3.0) Basophils (%) (Auto) 1.3 % (0.0-2.0) Prothrombin Time 16.8 SEC (9.30-11.50) H Prothrombin Time INR 1.6 (0.9-1.1) H PTT 26 SEC (23-33) Sodium Level 140 MMOL/L (136-145) Potassium Level 4.2 MMOL/L (3.5-5.1) Chloride Level 108 MMOL/L (98-107) H Carbon Dioxide Level 23 MMOL/L (21-32) Anion Gap 9 mmol/L (5-15) Blood Urea Nitrogen 23 mg/dL (7-18) H Creatinine 1.9 MG/DL (0.55-1.30) H Estimate Glomerular Filtration Rate 43.0 mL/min (>60) Glucose Level 137 MG/DL (74-106) H Calcium Level 8.2 MG/DL (8.5-10.1) L Total Bilirubin 0.4 MG/DL (0.2-1.0) Aspartate Amino Transferase (AST) 48 U/L (15-37) H Alanine Aminotransferase (ALT) 35 U/L (12-78) Alkaline Phosphatase 90 U/L (46-116) Total Creatine Kinase 147 U/L (26-308) Troponin I 0.016 ng/mL (0.000-0.056) Pro-B-Type Natriuretic Peptide 3703 pg/mL (0-125) H Total Protein 7.0 G/DL (6.4-8.2) Albumin 3.1 G/DL (3.4-5.0) L Globulin 3.9 g/dL Albumin/Globulin Ratio 0.8 (1.0-2.7) L Urine Color Pale yellow Urine Appearance Clear Urine pH 6 (4.5-8.0) Urine Specific [place] 1.010 (1.005-1.035) Urine Protein 3+ (NEGATIVE) H Urine Glucose (UA) Negative (NEGATIVE) Urine Ketones Negative (NEGATIVE) Urine Occult Blood 1+ (NEGATIVE) H Urine Nitrite Negative (NEGATIVE) Urine Bilirubin Negative (NEGATIVE) Urine Urobilinogen Normal MG/DL (0.0-1.0) Urine Leukocyte Esterase Negative (NEGATIVE) Urine RBC 5-10 /HPF (0 - 0) H Urine WBC 2-4 /HPF (0 - 0) Urine Squamous Epithelial Cells Occasional /LPF Urine Bacteria Occasional /HPF (NONE) Urine Fine Granular Casts 0-2 /LPF (NONE) H Urine Opiates Screen Negative (NEGATIVE) Urine Barbiturates Screen Negative (NEGATIVE) Phencyclidine (PCP) Screen Negative (NEGATIVE) Urine Amphetamines Screen Negative (NEGATIVE) Urine Benzodiazepines Screen Negative (NEGATIVE) Urine Cocaine Screen Negative (NEGATIVE) Urine Marijuana (THC) Screen Negative (NEGATIVE) EKG Diagnostic Results Rate: tachycardiac Rhythm: NSR ST Segments: no acute changes Rhythm Strip Diag. Results EP Interpretation: yes Rhythm: no PVC's, no ectopy, other - ST Chest X-Ray Diagnostic Results Chest X-Ray Diagnostic Results : Chest X-Ray Ordered: Yes # of Views/Limited/Complete: 1 View Indication: Shortness of Breath EP Interpretation: Yes Interpretation: other - R effusion and CHF Impression: Other Electronically Signed by: Electronically signed by Moe Rajan MD Last Vital Signs Date Time Temp Pulse Resp B/P (MAP) Pulse Ox O2 Delivery O2 Flow Rate FiO2 11/05/17 13:13 96 114/72 11/05/17 12:04 97.8 20 95 Nasal Cannula 3.0 97.8 Subjective Allergies: Coded Allergies: BRITTANI INHIBITORS (Unverified Allergy, Unknown, 03/19/15) Objective Last 24 Hour Vital Signs Date Time Temp Pulse Resp B/P (MAP) Pulse Ox O2 Delivery O2 Flow Rate FiO2 11/06/17 10:28 75 18 98 Nasal Cannula 2.0 11/06/17 10:22 74 18 98 Nasal Cannula 3.0 32 11/06/17 08:56 148/91 11/06/17 08:55 94 148/91 11/06/17 08:00 104 11/06/17 08:00 97.9 94 18 148/91 100 Nasal Cannula 2.0 97.9 11/06/17 07:59 Nasal Cannula 3.0 32 11/06/17 07:58 98 Nasal Cannula 3.0 32 11/06/17 04:00 89 11/06/17 04:00 97.9 89 16 106/81 99 Nasal Cannula 2.0 97.9 11/06/17 00:00 97.9 80 16 130/80 100 Nasal Cannula 3.0 97.9 11/06/17 00:00 75 11/05/17 21:07 Nasal Cannula 3.0 32 11/05/17 21:07 98 Nasal Cannula 3.0 32 11/05/17 21:00 83 105/70 11/05/17 20:45 Nasal Cannula 11/05/17 20:43 75 18 98 Nasal Cannula 3.0 32 11/05/17 20:00 81 11/05/17 20:00 97.9 83 12 105/70 96 Nasal Cannula 3.0 97.9 11/05/17 17:17 107/78 11/05/17 16:00 80 11/05/17 16:00 97.2 82 20 107/78 98 Nasal Cannula 3.0 97.2 11/05/17 13:13 96 114/72 11/05/17 13:00 114/72 11/05/17 12:04 97.8 87 20 124/76 95 Nasal Cannula 3.0 97.8 11/05/17 12:00 93 Intake and Output 11/05/17 11/06/17 19:00 07:00 Intake Total 250 ml 960 ml Output Total 950 ml 825 ml Balance -700 ml 135 ml Intake Oral 250 ml 960 ml Output Urine Total 950 ml 825 ml # Voids 3 2 Laboratory Tests 11/06/17 04:33: Prothrombin Time 23.4H, Prothromb Time International Ratio 2.2H, Lactate Dehydrogenase 292H Current Medications Medications (Trade) Dose Ordered Sig/Allen Route PRN Reason Start Time Stop Time Status Last Admin Dose Admin Acetaminophen/ Hydrocodone Bitart ([place] 10/325) 1 tab Q4H PRN ORAL For Pain 11/05/17 09:45 11/12/17 09:44 11/06/17 09:04 Allopurinol (Zyloprim) 100 mg BID ORAL 11/05/17 10:00 12/05/17 09:59 11/06/17 08:56 Aspirin (Ecotrin) 81 mg DAILY ORAL 11/05/17 10:00 12/05/17 09:59 11/06/17 08:55 Atorvastatin Calcium (Lipitor) 80 mg BEDTIME ORAL 11/05/17 21:00 12/05/17 20:59 11/05/17 21:32 Clonidine HCl (Catapres tab) 0.2 mg THREE TIMES A DAY ORAL 11/05/17 09:45 12/05/17 09:44 11/06/17 08:56 Dextrose (Dextrose 50%) 25 ml STAT PRN IV Hypoglycemia 11/05/17 10:00 12/05/17 09:59 Dextrose (Dextrose 50%) 50 ml STAT PRN IV Hypoglycemia 11/05/17 10:00 12/05/17 09:59 Diphenhydramine HCl (Benadryl) 25 mg BEDTIME ORAL 11/05/17 21:00 12/05/17 20:59 11/05/17 21:31 Enoxaparin Sodium (Lovenox) 60 mg EVERY 12 HOURS SUBQ 11/05/17 21:00 12/05/17 20:59 Furosemide (Lasix) 20 mg BID IV 11/06/17 09:00 12/06/17 08:59 Glipizide (Glucotrol) 5 mg BIAC ORAL 11/05/17 16:30 12/05/17 16:29 11/06/17 06:31 Hydrochlorothiazide (Hydrodiuril) 25 mg DAILY ORAL 11/05/17 09:45 12/05/17 09:44 11/06/17 08:56 Insulin Aspart (NovoLOG) BEFORE MEALS AND HS SUBQ 11/05/17 11:30 12/05/17 11:29 11/05/17 16:37 Ipratropium [place] (Atrovent) 500 mcg Q6HRT PRN HHN Shortness of Breath 11/05/17 22:00 11/10/17 21:59 Labetalol HCl (Normodyne) 300 mg Q12HR ORAL 11/05/17 11:00 12/05/17 10:59 11/06/17 08:55 Lidocaine HCl (Xylocaine 1% 30ml) 30 ml ONCE ONCE INJ 11/06/17 11:00 11/06/17 11:01 UNV Pantoprazole (Protonix) 40 mg DAILY ORAL 11/05/17 09:45 12/05/17 09:44 11/06/17 08:55 Potassium Chloride (K-Dur) 20 meq TWICE A DAY ORAL 11/06/17 09:00 12/06/17 08:59 11/06/17 08:56 Salmeterol Xinafoate/ Fluticasone (Advair 250/50 Diskus) 1 puffs EVERY 12 HOURS INH 11/05/17 11:00 12/05/17 10:59 11/06/17 10:22 Tamsulosin HCl (Flomax) 0.4 mg BEDTIME ORAL 11/05/17 21:00 12/05/17 20:59 11/05/17 21:32 Vitamin D (Vitamin D) 1,000 intlu DAILY ORAL 11/05/17 09:45 12/05/17 09:44 11/06/17 08:55 Warfarin Sodium (Coumadin per pharmacy) 1 ea DAILY PRN MISC PER PROTOCOL 11/05/17 10:45 12/05/17 10:44 Meo Hand MD Nov 06, 2017 11:30
[2017-11-06 12:00] VITALS: BP 126/81
--- NOTE | 2017-11-06 14:18 | Cardiology Report ---
APPROVED REPORT EXAM: Two-dimensional and M-mode echocardiogram with Doppler and color Doppler. INDICATION Congestive Heart Failure M-Mode DIMENSIONS IVSd1.3 (0.7-1.1cm)Left Atrium (MM)4.7 (1.6-4.0cm) LVDd3.7 (3.5-5.6cm)Aortic Root3.5 (2.0-3.7cm) PWd1.9 (0.7-1.1cm)Aortic Cusp Exc.1.5 (1.5-2.0cm) IVSs1.5 cm LVDs2.7 (2.5-4.0cm) PWs2.0 cm Normal left ventricular chamber size, Global left ventricular hypokinesis with severe hypokinesis of the apical region. Left ventricular ejection fraction estimated to be 40 %. Mild left ventricular hypertrophy by 2-D. No evidence of pericardial effusion. Mild left atrial enlargements. Right cardiac chamber sizes are within normal limits. Focal aortic valve sclerosis with adequate cusp excursion. Thickened mitral valve leaflets with normal excursion. Mitral annulus and aortic root calcification. Pulmonic valve not well visualized. Normal tricuspid valve structure. IVC at 1.9 cm with physiologic collapse . A color flow and spectral Doppler study was performed and revealed: Moderate aortic regurgitation. Moderate mitral regurgitation. Mitral diastolic velocities suggest reduced left ventricular relaxation c/w mild LV diastolic dysfunction (Grade I ). Trace tricuspid regurgitation. Tricuspid systolic velocities suggests peak right ventricular systolic pressure of 30mmHg. Trace Pulmonic regurgitation present.
[2017-11-06 16:00] VITALS: BP 121/62
--- NOTE | 2017-11-06 16:36 | Diagnostic Imaging Report ---
Indication: Post thoracentesis Technique: One view of the chest Comparison: 11/04/2017 Findings: And resolution of previously demonstrated right pleural effusion, postthoracentesis. Atelectasis is seen in the right perihilar region. No pneumothorax. Left lung and pleural space are clear. Previously demonstrated interstitial congestion is no longer evident Impression: Resolved right pleural effusion, postthoracentesis. No radiographically evident complication Right perihilar atelectasis Improved interstitial congestion, over one day
--- NOTE | 2017-11-06 17:00 | Diagnostic Imaging Report ---
Indications: Pleural effusion Technique: Informed consent obtained prior to consideration of the procedure. Procedural timeout performed. Ultrasound used to localize optimal puncture site. Sterile prepping and draping right chest. Local anesthesia with 1% lidocaine. Under real-time ultrasound guidance, puncture pleural space using thoracentesis needle. Stylet removed. Catheter placed to vacuum bottle suction. Total 1350 milliliters of fluid aspirated. Patient tolerated procedure well, without immediate complication. Findings: Followup sonography demonstrates complete resolution of pleural fluid. Impression: Successful ultrasound-guided thoracentesis, yielding 1350 milliliters of fluid
[2017-11-06 20:00] VITALS: BP 140/98
[2017-11-06] MEDS: Tamsulosin 0.4mg cap ORAL SCH (20:49)
[2017-11-06] MEDS: Atorvastatin 80mg tab ORAL SCH (20:50)
[2017-11-07] VITALS: BP 136/82
[2017-11-07] MEDS: HYDROcodone/Acetamin 10/325 tab ORAL PRN ×4 (01:21→20:51)
[2017-11-07 04:00] VITALS: BP 113/75
[2017-11-07 04:26] LABS: INR 2.4 (0.9-1.1)
[2017-11-07 04:28] LABS: ANION GAP 9 mmol/L (5-15); BLOOD UREA NITROGEN 45 mg/dL (7-18); CARBON DIOXIDE 26 MMOL/L (21-32); CHLORIDE 104 MMOL/L (98-107); CREATININE 2.3 MG/DL (0.55-1.30); POTASSIUM 3.9 MMOL/L (3.5-5.1); SODIUM 139 MMOL/L (136-145)
[2017-11-07 04:29] LABS: BASOPHILS % (AUTO) 0.5 % (0.0-2.0); HEMATOCRIT 30.6 % (42.0-52.0); HEMOGLOBIN 10.1 G/DL (14.2-18.0); LYMPHOCYTES % (AUTO) 12.6 % (20.0-45.0); MEAN CORPUSCULAR VOLUME 97 FL (80-99); MONOCYTES % (AUTO) 4.2 % (1.0-10.0); NEUTROPHILS % (AUTO) 80.7 % (45.0-75.0); PLATELET COUNT 131 K/UL (150-450); RED BLOOD COUNT 3.14 M/UL (4.70-6.10); RED CELL DISTRIBUTION WIDTH 18.7 % (11.6-14.8); WHITE BLOOD COUNT 4.9 K/UL (4.8-10.8)
[2017-11-07] MEDS: GlipiZIDE 5mg tab ORAL SCH ×2 (06:05→17:00)
[2017-11-07] MEDS: NovoLOG Insulin Flexpen SUBQ SCH ×4 (06:06→20:48)
[2017-11-07 08:00] VITALS: BP 117/72
[2017-11-07] MEDS: cloNIDine 0.2mg Tab ORAL SCH ×3 (08:50→17:05)
[2017-11-07] MEDS: Labetalol 200mg tab ORAL SCH ×2 (08:50→20:49)
[2017-11-07] MEDS: Vitamin D 1000 IU Tab ORAL SCH (08:51)
[2017-11-07] MEDS: Allopurinol 100mg Tab ORAL SCH ×2 (08:52→17:05)
[2017-11-07] MEDS: Aspirin EC 81mg tab ORAL SCH (08:52)
[2017-11-07] MEDS: Enoxaparin 60mg Inj SUBQ SCH (08:55)
[2017-11-07] MEDS: Advair 250/50 Inhaler - 14 dose INH SCH ×2 (09:00→19:41)
--- NOTE | 2017-11-07 09:05 | General Progress Note ---
Assessment/Plan Assessment/Plan Large pleural effusion - post thoracentesis. COPD exacerbation - per Pul. CHF - may need repeat w/u Subjective Allergies: Coded Allergies: BRITTANI INHIBITORS (Unverified Allergy, Unknown, 03/19/15) Subjective Less dyspneic. Post thoracentesis. Objective Last 24 Hour Vital Signs Date Time Temp Pulse Resp B/P (MAP) Pulse Ox O2 Delivery O2 Flow Rate FiO2 11/07/17 08:53 99.3 11/07/17 08:50 95 117/72 11/07/17 08:50 117/72 11/07/17 08:20 97 Nasal Cannula 3.0 32 11/07/17 08:20 Nasal Cannula 3.0 32 11/07/17 08:00 99.3 95 18 117/72 96 Room Air 99.3 11/07/17 04:00 91 11/07/17 04:00 97.3 81 18 113/75 99 Room Air 97.3 11/07/17 00:00 97.5 95 22 136/82 98 Nasal Cannula 2.0 97.5 11/06/17 23:39 91 11/06/17 21:06 101 18 98 Nasal Cannula 2.0 11/06/17 21:05 102 18 98 Nasal Cannula 3.0 32 11/06/17 20:50 109 140/98 11/06/17 20:00 97.9 109 20 140/98 98 Nasal Cannula 2.0 97.9 11/06/17 20:00 85 11/06/17 18:35 98 Nasal Cannula 3.0 32 11/06/17 18:35 Nasal Cannula 3.0 32 11/06/17 17:49 121/62 11/06/17 16:00 80 11/06/17 16:00 98.1 83 17 121/62 100 Nasal Cannula 2.0 98.1 11/06/17 13:03 126/81 11/06/17 12:00 97.1 91 17 126/81 99 Room Air 97.1 11/06/17 11:35 87 11/06/17 10:28 75 18 98 Nasal Cannula 2.0 11/06/17 10:22 74 18 98 Nasal Cannula 3.0 32 Intake and Output 11/06/17 11/07/17 19:00 07:00 Intake Total 1020 ml 650 ml Output Total 2750 ml 1100 ml Balance -1730 ml -450 ml Intake Oral 720 ml 650 ml Blood Product 300 ml Output Urine Total 1400 ml 1100 ml Other 1350 ml # Voids 5 6 Laboratory Tests 11/07/17 04:00: White Blood Count 4.9, Red Blood Count 3.14L, Hemoglobin 10.1L, Hematocrit 30.6L , Mean Corpuscular Volume 97, Mean Corpuscular Hemoglobin 32.3H, Mean Corpuscular Hemoglobin Concent 33.2, Red Cell Distribution Width 18.7H, Platelet Count 131L, Mean Platelet Volume 8.2, Neutrophils (%) (Auto) 80.7H, Lymphocytes (%) (Auto) 12.6L, Monocytes (%) (Auto) 4.2, Eosinophils (%) (Auto) 2.0, Basophils (%) (Auto) 0.5, Prothrombin Time 25.0H, Prothromb Time International Ratio 2.4H, Sodium Level 139, Potassium Level 3.9, Chloride Level 104, Carbon Dioxide Level 26, Anion Gap 9, Blood Urea Nitrogen 45H, Creatinine 2.3H, Estimat Glomerular Filtration Rate 34.5, Glucose Level 91, Calcium Level 8.0L, Magnesium Level 1.9 Height (Feet): 5 Height (Inches): 9.49 Weight (Pounds): 139 Objective Cv RR Lungs B wheezes Abd SNT. BS + E +2 edema Harsh Maher MD Nov 07, 2017 09:04
[2017-11-07 11:50] VITALS: BP 112/72
[2017-11-07 16:00] VITALS: BP 109/66
[2017-11-07] MEDS ORDERED: Tubing Blood Filter IV ONE (16:35)
[2017-11-07] MEDS ORDERED: NS 275ml ONE (16:35)
[2017-11-07] MEDS ORDERED: Warfarin Sodium 10mg ORAL ONE (17:00)
--- NOTE | 2017-11-07 18:52 | Pulmonology Progress Note ---
Assessment/Plan Assessment/Plan ASSESSMENT: 1. Re-accumulation of right pleural effusion, s/p thoracentesis, results pending 2. Ischemic heart disease. 3. Cardiomyopathy, significantly elevated NPA level 4. Hypertensive cardiovascular disease. 5. History of lung cancer, on chemotherapy. 6. History of paroxysmal atrial fibrillation. 7. Chronic obstructive pulmonary disease. 8. Peripheral vascular disease. 9. History of deep venous thrombosis. 10. History of pulmonary emboli. 11. Type 2 diabetes mellitus. PLAN: 1. Continue home medications. 2. Diuresis PRN 3. Oxygen PRN 4. Thoracentesis once INR at safe level 5. Atrovent HHN PRN Q6 6. PPX: Coumadin History: The patient is a 67 year old man who pesents with several days of increased shortness of breath. He has a history of congestive heart failure, prior pleural effusion, Non Small Cell Lung cancer. Not taking Lasix prior to admission although has been on Lasix in the past. Has has a history of hypertension. T The patient presented to the emergency department complaining of gradually increasing dyspnea, a nonproductive cough. He's had no fevers and chills. There is no Chest pain, Hemoptysis or calf pain/edema. No new complaints PAST MEDICAL HISTORY: 1. Ischemic heart disease. 2. Cardiomyopathy. 3. Hypertensive cardiovascular disease. 4. History of lung CA, on chemotherapy. 5. History of paroxysmal atrial fibrillation. 6. COPD. 7. Peripheral vascular disease. 8. History of DVTs. 9. History of pulmonary emboli. 10. Type 2 diabetes mellitus. MEDICATIONS: Chandler p.r.n., allopurinol, Ecotrin, atorvastatin, Coreg, vitamin D3, clonidine, Benadryl, glipizide, hydralazine, hydrochlorothiazide, nitroglycerin, Protonix, tamsulosin, Brilinta, and Coumadin. ALLERGIES: BRITTANI inhibitors. FAMILY HISTORY: Unremarkable. SOCIAL HISTORY: He lives at home. HABITS: He is a past heavy cigarette smoker. REVIEW OF SYSTEMS: ENDOCRINE: Significant for type 2 diabetes mellitus. RESPIRATORY: Significant for orthopnea, paroxysmal nocturnal dyspnea, and dyspnea on effort. CARDIOVASCULAR: Please refer to past medical history. GASTROINTESTINAL: No history of hematochezia, melena, hematemesis, diarrhea, or constipation. GENITOURINARY: Significant for nocturia. He denies hematuria. NEUROLOGICAL: History of stroke, syncope, and Parkinson disease. Allergies: Coded Allergies: BRITTANI INHIBITORS (Unverified Allergy, Unknown, 03/19/15) Nursing Documentation-PMH Hx Cardiac Problems: Yes - NM, A-fib (post ablation in 2015) Hx Hypertension: Yes - high cholesterol Hx Pacemaker: No Hx COPD: Yes Hx Diabetes: Yes - type 2 Hx Cancer: Yes - Lung Hx Gastrointestinal Problems: No Hx Dialysis: No Hx Neurological Problems: Yes Hx Cerebrovascular Accident: Yes - 06/2016 Hx Seizures: No Physical Exam Vital Signs Date Time Temp Pulse Resp B/P (MAP) Pulse Ox O2 Delivery O2 Flow Rate FiO2 11/05/17 06:04 118 22 171/135 98 Nasal Cannula 2.0 Sp02 EP Interpretation: reviewed, abnormal - interpreted as low by me on O2 General Appearance: GCS 15, mild distress, Chronically Ill Head: normocephalic, atraumatic Eyes: bilateral eye normal inspection, bilateral eye PERRL, bilateral eye other - periorbital edema ENT: moist mucus membranes Respiratory: decreased breath sounds, other - dullness to percussion Cardiovascular #1: no edema, JVD - to forehead, tachycardia Cardiovascular #2: 2+ radial (L) Gastrointestinal: normal inspection, non tender, soft, abnormal bowel sounds, decreased bowel sounds Genitourinary: no CVA tenderness Musculoskeletal: back normal, gait/station normal, normal range of motion Neurologic: oriented x3, grossly normal Psychiatric: depressed affect Skin: normal color, other - clubbing PHYSICAL EXAMINATION: GENERAL: This is an elderly, male, who is in no acute distress. VITAL SIGNS: Blood pressure 114/72, pulse 96 and regular, respirations 20, and temperature 98. HEENT: The head is normocephalic and atraumatic. Pupils are equal, round, and reactive to light and accommodation consensually. NECK: Supple. Trachea midline. No lymphadenopathy or thyromegaly. LUNGS: Bilateral wheezes. HEART: Regular rate and rhythm without rubs, murmurs, or gallops. ABDOMEN: Soft and nontender. Bowel sounds were active. EXTREMITIES: No clubbing, cyanosis, or edema. NEUROLOGICAL: He is alert and oriented x4. Cranial nerves II through XII intact. LABORATORY AND ANCILLARY DATA: Chest x-ray, moderate to large right pleural effusion and interstitial edema. CBC within normal limits. BMP within normal limits. Medical Decision Making Diagnostic Impression: Primary Impression: CHF (congestive heart failure) Qualified Codes: I50.33 - Acute on chronic diastolic (congestive) heart failure Additional Impressions: Hypertensive urgency Pleural effusion Renal insufficiency R EJ started by me. EKG without injury. CXR with R pleural effusion (re-constituted from prior film ), also CHF. Labs with normal WBC, elevated BNP, normal troponin. Aggressive treatment of BP with improvement. Discussed with Dr. Maher who accepts admission. Laboratory Tests Test 11/05/17 06:21 11/05/17 06:34 White Blood Count 7.8 K/UL (4.8-10.8) Red Blood Count 3.68 M/UL (4.70-6.10) L Hemoglobin 11.7 G/DL (14.2-18.0) L Hematocrit 36.5 % (42.0-52.0) L Mean Corpuscular Volume 99 FL (80-99) Mean Corpuscular Hemoglobin 31.9 PG (27.0-31.0) H Mean Corpuscular Hemoglobin Concent 32.1 G/DL (32.0-36.0) Red Cell Distribution Width 19.0 % (11.6-14.8) H Platelet Count 143 K/UL (150-450) L Mean Platelet Volume 8.4 FL (6.5-10.1) Neutrophils (%) (Auto) 76.8 % (45.0-75.0) H Lymphocytes (%) (Auto) 14.2 % (20.0-45.0) L Monocytes (%) (Auto) 6.0 % (1.0-10.0) Eosinophils (%) (Auto) 1.6 % (0.0-3.0) Basophils (%) (Auto) 1.3 % (0.0-2.0) Prothrombin Time 16.8 SEC (9.30-11.50) H Prothrombin Time INR 1.6 (0.9-1.1) H PTT 26 SEC (23-33) Sodium Level 140 MMOL/L (136-145) Potassium Level 4.2 MMOL/L (3.5-5.1) Chloride Level 108 MMOL/L (98-107) H Carbon Dioxide Level 23 MMOL/L (21-32) Anion Gap 9 mmol/L (5-15) Blood Urea Nitrogen 23 mg/dL (7-18) H Creatinine 1.9 MG/DL (0.55-1.30) H Estimate Glomerular Filtration Rate 43.0 mL/min (>60) Glucose Level 137 MG/DL (74-106) H Calcium Level 8.2 MG/DL (8.5-10.1) L Total Bilirubin 0.4 MG/DL (0.2-1.0) Aspartate Amino Transferase (AST) 48 U/L (15-37) H Alanine Aminotransferase (ALT) 35 U/L (12-78) Alkaline Phosphatase 90 U/L (46-116) Total Creatine Kinase 147 U/L (26-308) Troponin I 0.016 ng/mL (0.000-0.056) Pro-B-Type Natriuretic Peptide 3703 pg/mL (0-125) H Total Protein 7.0 G/DL (6.4-8.2) Albumin 3.1 G/DL (3.4-5.0) L Globulin 3.9 g/dL Albumin/Globulin Ratio 0.8 (1.0-2.7) L Urine Color Pale yellow Urine Appearance Clear Urine pH 6 (4.5-8.0) Urine Specific [place] 1.010 (1.005-1.035) Urine Protein 3+ (NEGATIVE) H Urine Glucose (UA) Negative (NEGATIVE) Urine Ketones Negative (NEGATIVE) Urine Occult Blood 1+ (NEGATIVE) H Urine Nitrite Negative (NEGATIVE) Urine Bilirubin Negative (NEGATIVE) Urine Urobilinogen Normal MG/DL (0.0-1.0) Urine Leukocyte Esterase Negative (NEGATIVE) Urine RBC 5-10 /HPF (0 - 0) H Urine WBC 2-4 /HPF (0 - 0) Urine Squamous Epithelial Cells Occasional /LPF Urine Bacteria Occasional /HPF (NONE) Urine Fine Granular Casts 0-2 /LPF (NONE) H Urine Opiates Screen Negative (NEGATIVE) Urine Barbiturates Screen Negative (NEGATIVE) Phencyclidine (PCP) Screen Negative (NEGATIVE) Urine Amphetamines Screen Negative (NEGATIVE) Urine Benzodiazepines Screen Negative (NEGATIVE) Urine Cocaine Screen Negative (NEGATIVE) Urine Marijuana (THC) Screen Negative (NEGATIVE) EKG Diagnostic Results Rate: tachycardiac Rhythm: NSR ST Segments: no acute changes Rhythm Strip Diag. Results EP Interpretation: yes Rhythm: no PVC's, no ectopy, other - ST Chest X-Ray Diagnostic Results Chest X-Ray Diagnostic Results : Chest X-Ray Ordered: Yes # of Views/Limited/Complete: 1 View Indication: Shortness of Breath EP Interpretation: Yes Interpretation: other - R effusion and CHF Impression: Other Electronically Signed by: Electronically signed by Moe Rajan MD Last Vital Signs Date Time Temp Pulse Resp B/P (MAP) Pulse Ox O2 Delivery O2 Flow Rate FiO2 11/05/17 13:13 96 114/72 11/05/17 12:04 97.8 20 95 Nasal Cannula 3.0 97.8 Subjective Allergies: Coded Allergies: BRITTANI INHIBITORS (Unverified Allergy, Unknown, 03/19/15) Objective Last 24 Hour Vital Signs Date Time Temp Pulse Resp B/P (MAP) Pulse Ox O2 Delivery O2 Flow Rate FiO2 11/07/17 17:05 109/66 11/07/17 16:25 98.6 11/07/17 16:00 98.6 92 18 109/66 100 Nasal Cannula 2.0 98.6 11/07/17 16:00 95 11/07/17 15:26 98.8 11/07/17 12:47 112/72 11/07/17 12:00 91 11/07/17 11:50 98.8 86 18 112/72 99 Nasal Cannula 2.0 98.8 11/07/17 09:05 100 18 98 Nasal Cannula 3.0 11/07/17 09:03 98 18 98 Nasal Cannula 3.0 32 11/07/17 08:53 99.3 11/07/17 08:50 95 117/72 11/07/17 08:50 117/72 11/07/17 08:20 97 Nasal Cannula 3.0 32 11/07/17 08:20 Nasal Cannula 3.0 32 11/07/17 08:00 99.3 95 18 117/72 96 Room Air 99.3 11/07/17 08:00 101 11/07/17 04:00 91 11/07/17 04:00 97.3 81 18 113/75 99 Room Air 97.3 11/07/17 00:00 97.5 95 22 136/82 98 Nasal Cannula 2.0 97.5 11/06/17 23:39 91 11/06/17 21:06 101 18 98 Nasal Cannula 2.0 11/06/17 21:05 102 18 98 Nasal Cannula 3.0 32 11/06/17 20:50 109 140/98 11/06/17 20:00 97.9 109 20 140/98 98 Nasal Cannula 2.0 97.9 11/06/17 20:00 85 Intake and Output 11/06/17 11/07/17 19:00 07:00 Intake Total 1020 ml 650 ml Output Total 2750 ml 1100 ml Balance -1730 ml -450 ml Intake Oral 720 ml 650 ml Blood Product 300 ml Output Urine Total 1400 ml 1100 ml Other 1350 ml # Voids 5 6 Microbiology Date/Time Source Procedure Growth Status 11/05/17 07:57 Nasal Nares MRSA Culture - Final NO METHICILLIN RESISTANT STAPH AUREUS... Complete 11/05/17 07:57 Rectal Mucosa VRE Culture - Final NO VANCOMYCIN RESISTANT ENTEROCOCCUS ... Complete Laboratory Tests 11/07/17 04:00: White Blood Count 4.9, Red Blood Count 3.14L, Hemoglobin 10.1L, Hematocrit 30.6L , Mean Corpuscular Volume 97, Mean Corpuscular Hemoglobin 32.3H, Mean Corpuscular Hemoglobin Concent 33.2, Red Cell Distribution Width 18.7H, Platelet Count 131L, Mean Platelet Volume 8.2, Neutrophils (%) (Auto) 80.7H, Lymphocytes (%) (Auto) 12.6L, Monocytes (%) (Auto) 4.2, Eosinophils (%) (Auto) 2.0, Basophils (%) (Auto) 0.5, Prothrombin Time 25.0H, Prothromb Time International Ratio 2.4H, Sodium Level 139, Potassium Level 3.9, Chloride Level 104, Carbon Dioxide Level 26, Anion Gap 9, Blood Urea Nitrogen 45H, Creatinine 2.3H, Estimat Glomerular Filtration Rate 34.5, Glucose Level 91, Calcium Level 8.0L, Magnesium Level 1.9 Current Medications Medications (Trade) Dose Ordered Sig/Allen Route PRN Reason Start Time Stop Time Status Last Admin Dose Admin Acetaminophen/ Hydrocodone Bitart (Chandler 10/325) 1 tab Q4H PRN ORAL For Pain 11/05/17 09:45 11/12/17 09:44 11/07/17 15:26 Allopurinol (Zyloprim) 100 mg BID ORAL 11/05/17 10:00 12/05/17 09:59 11/07/17 17:05 Aspirin (Ecotrin) 81 mg DAILY ORAL 11/05/17 10:00 12/05/17 09:59 11/07/17 08:52 Atorvastatin Calcium (Lipitor) 80 mg BEDTIME ORAL 11/05/17 21:00 12/05/17 20:59 11/06/17 20:50 Clonidine HCl (Catapres tab) 0.2 mg THREE TIMES A DAY ORAL 11/05/17 09:45 12/05/17 09:44 11/07/17 17:05 Dextrose (Dextrose 50%) 25 ml STAT PRN IV Hypoglycemia 11/05/17 10:00 12/05/17 09:59 Dextrose (Dextrose 50%) 50 ml STAT PRN IV Hypoglycemia 11/05/17 10:00 12/05/17 09:59 11/07/17 16:58 Diphenhydramine HCl (Benadryl) 25 mg BEDTIME ORAL 11/05/17 21:00 12/05/17 20:59 11/06/17 20:49 Furosemide (Lasix) 20 mg EVERY 12 HOURS ORAL 11/06/17 21:00 12/06/17 20:59 11/07/17 08:51 Glipizide (Glucotrol) 5 mg BIAC ORAL 11/05/17 16:30 12/05/17 16:29 11/07/17 06:05 Hydrochlorothiazide (Hydrodiuril) 25 mg DAILY ORAL 11/05/17 09:45 12/05/17 09:44 11/07/17 08:51 Insulin Aspart (NovoLOG) BEFORE MEALS AND HS SUBQ 11/05/17 11:30 12/05/17 11:29 11/05/17 16:37 Ipratropium [place] (Atrovent) 500 mcg Q6HRT PRN HHN Shortness of Breath 11/05/17 22:00 11/10/17 21:59 Labetalol HCl (Normodyne) 300 mg Q12HR ORAL 11/05/17 11:00 12/05/17 10:59 11/07/17 08:50 Pantoprazole (Protonix) 40 mg DAILY ORAL 11/05/17 09:45 12/05/17 09:44 11/07/17 08:52 Potassium Chloride (K-Dur) 20 meq TWICE A DAY ORAL 6/22/18 09:00 12/06/17 08:59 11/07/17 17:05 Salmeterol Xinafoate/ Fluticasone (Advair 250/50 Diskus) 1 puffs EVERY 12 HOURS INH 11/05/17 11:00 12/05/17 10:59 11/07/17 09:00 Tamsulosin HCl (Flomax) 0.4 mg BEDTIME ORAL 11/05/17 21:00 12/05/17 20:59 11/06/17 20:49 Vitamin D (Vitamin D) 1,000 intlu DAILY ORAL 11/05/17 09:45 12/05/17 09:44 11/07/17 08:51 Warfarin Sodium (Coumadin per pharmacy) 1 ea DAILY PRN MISC PER PROTOCOL 11/05/17 10:45 12/05/17 10:44 Moe Hand MD Nov 07, 2017 18:52
[2017-11-07 20:00] VITALS: BP 112/75
[2017-11-07] MEDS: Atorvastatin 80mg tab ORAL SCH (20:50)
[2017-11-07] MEDS: Tamsulosin 0.4mg cap ORAL SCH (20:50)
[2017-11-08] VITALS: BP 91/54
[2017-11-08] MEDS: HYDROcodone/Acetamin 10/325 tab ORAL PRN ×2 (01:41→13:06)
[2017-11-08 04:00] VITALS: BP 102/57
[2017-11-08 04:31] LABS: INR 1.9 (0.9-1.1)
[2017-11-08] MEDS: NovoLOG Insulin Flexpen SUBQ SCH ×4 (06:01→20:18)
[2017-11-08] MEDS: GlipiZIDE 5mg tab ORAL SCH ×2 (06:10→16:23)
[2017-11-08 08:00] VITALS: BP 130/83
[2017-11-08] MEDS: Advair 250/50 Inhaler - 14 dose INH SCH ×2 (08:24→21:00)
[2017-11-08] MEDS: Allopurinol 100mg Tab ORAL SCH ×2 (08:52→17:25)
[2017-11-08] MEDS: Vitamin D 1000 IU Tab ORAL SCH (08:52)
[2017-11-08] MEDS: Aspirin EC 81mg tab ORAL SCH (08:52)
[2017-11-08] MEDS: Labetalol 200mg tab ORAL SCH ×2 (08:53→20:20)
[2017-11-08] MEDS: cloNIDine 0.2mg Tab ORAL SCH ×3 (08:53→17:25)
--- NOTE | 2017-11-08 09:38 | General Progress Note ---
Assessment/Plan Assessment/Plan Large pleural effusion -s/p post thoracentesis. COPD exacerbation - per Pul. CHF - may need repeat w/u Pain control for severe LBP. Subjective Allergies: Coded Allergies: BRITTANI INHIBITORS (Unverified Allergy, Unknown, 03/19/15) Subjective C/o Rt. lower back pain. Less dyspneic. Post thoracentesis. Objective Last 24 Hour Vital Signs Date Time Temp Pulse Resp B/P (MAP) Pulse Ox O2 Delivery O2 Flow Rate FiO2 11/08/17 08:53 102 130/83 11/08/17 08:53 130/83 11/08/17 08:27 80 16 100 Nasal Cannula 3.0 11/08/17 08:25 Nasal Cannula 3.0 32 11/08/17 08:25 100 Nasal Cannula 3.0 32 11/08/17 08:24 80 16 100 Nasal Cannula 3.0 32 11/08/17 08:00 98.0 104 20 130/83 98 Nasal Cannula 2.0 98.0 11/08/17 08:00 101 11/08/17 04:00 97.9 89 18 102/57 100 Nasal Cannula 2.0 97.9 11/08/17 03:39 95 11/08/17 00:00 97.7 84 20 91/54 97 Nasal Cannula 2.0 97.7 11/07/17 23:43 91 11/07/17 21:10 80 16 99 Nasal Cannula 3.0 11/07/17 21:09 78 16 99 Nasal Cannula 3.0 32 11/07/17 20:49 60 112/75 11/07/17 20:00 97.9 60 20 112/75 100 Nasal Cannula 2.0 97.9 11/07/17 19:43 Nasal Cannula 3.0 32 11/07/17 19:37 88 11/07/17 19:00 99 Nasal Cannula 3.0 32 11/07/17 17:05 109/66 11/07/17 16:25 98.6 11/07/17 16:00 98.6 92 18 109/66 100 Nasal Cannula 2.0 98.6 11/07/17 16:00 95 11/07/17 15:26 98.8 11/07/17 12:47 112/72 11/07/17 12:00 91 11/07/17 11:50 98.8 86 18 112/72 99 Nasal Cannula 2.0 98.8 Intake and Output 11/07/17 11/08/17 19:00 07:00 Intake Total 750 ml Output Total 1000 ml 1025 ml Balance -250 ml -1025 ml Intake Oral 750 ml Output Urine Total 1000 ml 1025 ml # Voids 3 # Bowel Movements 2 Laboratory Tests 11/08/17 03:40: Prothrombin Time 20.4H, Prothromb Time International Ratio 1.9H Height (Feet): 5 Height (Inches): 9.49 Weight (Pounds): 139 Objective Cv RR Lungs B wheezes Abd SNT. BS + E +2 edema Harsh Maher MD Nov 08, 2017 09:38
[2017-11-08 12:00] VITALS: BP 122/53
[2017-11-08 16:00] VITALS: BP 105/71
[2017-11-08] MEDS ORDERED: Warfarin Sodium 2.5mg ORAL SCH (17:00)
[2017-11-08 20:00] VITALS: BP 117/69
[2017-11-08] MEDS: Atorvastatin 80mg tab ORAL SCH (20:19)
[2017-11-08] MEDS: Tamsulosin 0.4mg cap ORAL SCH (20:19)
--- NOTE | 2017-11-08 22:34 | Pulmonology Progress Note ---
Assessment/Plan Assessment/Plan ASSESSMENT: 1. Re-accumulation of right pleural effusion, s/p thoracentesis, results pending 2. Ischemic heart disease. 3. Cardiomyopathy, significantly elevated NPA level 4. Hypertensive cardiovascular disease. 5. History of lung cancer, on chemotherapy. 6. History of paroxysmal atrial fibrillation. 7. Chronic obstructive pulmonary disease. 8. Peripheral vascular disease. 9. History of deep venous thrombosis. 10. History of pulmonary emboli. 11. Type 2 diabetes mellitus. PLAN: 1. Continue home medications. 2. Diuresis PRN 3. Oxygen PRN 4. Thoracentesis once INR at safe level 5. Atrovent HHN PRN Q6 6. PPX: Coumadin History: The patient is a 67 year old man who pesents with several days of increased shortness of breath. He has a history of congestive heart failure, prior pleural effusion, Non Small Cell Lung cancer. Not taking Lasix prior to admission although has been on Lasix in the past. Has has a history of hypertension. T The patient presented to the emergency department complaining of gradually increasing dyspnea, a nonproductive cough. He's had no fevers and chills. There is no Chest pain, Hemoptysis or calf pain/edema. No new complaints PAST MEDICAL HISTORY: 1. Ischemic heart disease. 2. Cardiomyopathy. 3. Hypertensive cardiovascular disease. 4. History of lung CA, on chemotherapy. 5. History of paroxysmal atrial fibrillation. 6. COPD. 7. Peripheral vascular disease. 8. History of DVTs. 9. History of pulmonary emboli. 10. Type 2 diabetes mellitus. MEDICATIONS: [place] p.r.n., allopurinol, Ecotrin, atorvastatin, Coreg, vitamin D3, clonidine, Benadryl, glipizide, hydralazine, hydrochlorothiazide, nitroglycerin, Protonix, tamsulosin, Brilinta, and Coumadin. ALLERGIES: BRITTANI inhibitors. FAMILY HISTORY: Unremarkable. SOCIAL HISTORY: He lives at home. HABITS: He is a past heavy cigarette smoker. REVIEW OF SYSTEMS: ENDOCRINE: Significant for type 2 diabetes mellitus. RESPIRATORY: Significant for orthopnea, paroxysmal nocturnal dyspnea, and dyspnea on effort. CARDIOVASCULAR: Please refer to past medical history. GASTROINTESTINAL: No history of hematochezia, melena, hematemesis, diarrhea, or constipation. GENITOURINARY: Significant for nocturia. He denies hematuria. NEUROLOGICAL: History of stroke, syncope, and Parkinson disease. Allergies: Coded Allergies: BRITTANI INHIBITORS (Unverified Allergy, Unknown, 03/19/15) Nursing Documentation-PMH Hx Cardiac Problems: Yes - NH, A-fib (post ablation in 2015) Hx Hypertension: Yes - high cholesterol Hx Pacemaker: No Hx COPD: Yes Hx Diabetes: Yes - type 2 Hx Cancer: Yes - Lung Hx Gastrointestinal Problems: No Hx Dialysis: No Hx Neurological Problems: Yes Hx Cerebrovascular Accident: Yes - 06/2016 Hx Seizures: No Physical Exam Vital Signs Date Time Temp Pulse Resp B/P (MAP) Pulse Ox O2 Delivery O2 Flow Rate FiO2 11/05/17 06:04 118 22 171/135 98 Nasal Cannula 2.0 Sp02 EP Interpretation: reviewed, abnormal - interpreted as low by me on O2 General Appearance: GCS 15, mild distress, Chronically Ill Head: normocephalic, atraumatic Eyes: bilateral eye normal inspection, bilateral eye PERRL, bilateral eye other - periorbital edema ENT: moist mucus membranes Respiratory: decreased breath sounds, other - dullness to percussion Cardiovascular #1: no edema, JVD - to forehead, tachycardia Cardiovascular #2: 2+ radial (L) Gastrointestinal: normal inspection, non tender, soft, abnormal bowel sounds, decreased bowel sounds Genitourinary: no CVA tenderness Musculoskeletal: back normal, gait/station normal, normal range of motion Neurologic: oriented x3, grossly normal Psychiatric: depressed affect Skin: normal color, other - clubbing PHYSICAL EXAMINATION: GENERAL: This is an elderly, male, who is in no acute distress. VITAL SIGNS: Blood pressure 114/72, pulse 96 and regular, respirations 20, and temperature 98. HEENT: The head is normocephalic and atraumatic. Pupils are equal, round, and reactive to light and accommodation consensually. NECK: Supple. Trachea midline. No lymphadenopathy or thyromegaly. LUNGS: Bilateral wheezes. HEART: Regular rate and rhythm without rubs, murmurs, or gallops. ABDOMEN: Soft and nontender. Bowel sounds were active. EXTREMITIES: No clubbing, cyanosis, or edema. NEUROLOGICAL: He is alert and oriented x4. Cranial nerves II through XII intact. LABORATORY AND ANCILLARY DATA: Chest x-ray, moderate to large right pleural effusion and interstitial edema. CBC within normal limits. BMP within normal limits. Medical Decision Making Diagnostic Impression: Primary Impression: CHF (congestive heart failure) Qualified Codes: I50.33 - Acute on chronic diastolic (congestive) heart failure Additional Impressions: Hypertensive urgency Pleural effusion Renal insufficiency R EJ started by me. EKG without injury. CXR with R pleural effusion (re-constituted from prior film ), also CHF. Labs with normal WBC, elevated BNP, normal troponin. Aggressive treatment of BP with improvement. Discussed with Dr. Maher who accepts admission. Laboratory Tests Test 11/05/17 06:21 11/05/17 06:34 White Blood Count 7.8 K/UL (4.8-10.8) Red Blood Count 3.68 M/UL (4.70-6.10) L Hemoglobin 11.7 G/DL (14.2-18.0) L Hematocrit 36.5 % (42.0-52.0) L Mean Corpuscular Volume 99 FL (80-99) Mean Corpuscular Hemoglobin 31.9 PG (27.0-31.0) H Mean Corpuscular Hemoglobin Concent 32.1 G/DL (32.0-36.0) Red Cell Distribution Width 19.0 % (11.6-14.8) H Platelet Count 143 K/UL (150-450) L Mean Platelet Volume 8.4 FL (6.5-10.1) Neutrophils (%) (Auto) 76.8 % (45.0-75.0) H Lymphocytes (%) (Auto) 14.2 % (20.0-45.0) L Monocytes (%) (Auto) 6.0 % (1.0-10.0) Eosinophils (%) (Auto) 1.6 % (0.0-3.0) Basophils (%) (Auto) 1.3 % (0.0-2.0) Prothrombin Time 16.8 SEC (9.30-11.50) H Prothrombin Time INR 1.6 (0.9-1.1) H PTT 26 SEC (23-33) Sodium Level 140 MMOL/L (136-145) Potassium Level 4.2 MMOL/L (3.5-5.1) Chloride Level 108 MMOL/L (98-107) H Carbon Dioxide Level 23 MMOL/L (21-32) Anion Gap 9 mmol/L (5-15) Blood Urea Nitrogen 23 mg/dL (7-18) H Creatinine 1.9 MG/DL (0.55-1.30) H Estimate Glomerular Filtration Rate 43.0 mL/min (>60) Glucose Level 137 MG/DL (74-106) H Calcium Level 8.2 MG/DL (8.5-10.1) L Total Bilirubin 0.4 MG/DL (0.2-1.0) Aspartate Amino Transferase (AST) 48 U/L (15-37) H Alanine Aminotransferase (ALT) 35 U/L (12-78) Alkaline Phosphatase 90 U/L (46-116) Total Creatine Kinase 147 U/L (26-308) Troponin I 0.016 ng/mL (0.000-0.056) Pro-B-Type Natriuretic Peptide 3703 pg/mL (0-125) H Total Protein 7.0 G/DL (6.4-8.2) Albumin 3.1 G/DL (3.4-5.0) L Globulin 3.9 g/dL Albumin/Globulin Ratio 0.8 (1.0-2.7) L Urine Color Pale yellow Urine Appearance Clear Urine pH 6 (4.5-8.0) Urine Specific [place] 1.010 (1.005-1.035) Urine Protein 3+ (NEGATIVE) H Urine Glucose (UA) Negative (NEGATIVE) Urine Ketones Negative (NEGATIVE) Urine Occult Blood 1+ (NEGATIVE) H Urine Nitrite Negative (NEGATIVE) Urine Bilirubin Negative (NEGATIVE) Urine Urobilinogen Normal MG/DL (0.0-1.0) Urine Leukocyte Esterase Negative (NEGATIVE) Urine RBC 5-10 /HPF (0 - 0) H Urine WBC 2-4 /HPF (0 - 0) Urine Squamous Epithelial Cells Occasional /LPF Urine Bacteria Occasional /HPF (NONE) Urine Fine Granular Casts 0-2 /LPF (NONE) H Urine Opiates Screen Negative (NEGATIVE) Urine Barbiturates Screen Negative (NEGATIVE) Phencyclidine (PCP) Screen Negative (NEGATIVE) Urine Amphetamines Screen Negative (NEGATIVE) Urine Benzodiazepines Screen Negative (NEGATIVE) Urine Cocaine Screen Negative (NEGATIVE) Urine Marijuana (THC) Screen Negative (NEGATIVE) EKG Diagnostic Results Rate: tachycardiac Rhythm: NSR ST Segments: no acute changes Rhythm Strip Diag. Results EP Interpretation: yes Rhythm: no PVC's, no ectopy, other - ST Chest X-Ray Diagnostic Results Chest X-Ray Diagnostic Results : Chest X-Ray Ordered: Yes # of Views/Limited/Complete: 1 View Indication: Shortness of Breath EP Interpretation: Yes Interpretation: other - R effusion and CHF Impression: Other Electronically Signed by: Electronically signed by Moe Rajan MD Last Vital Signs Date Time Temp Pulse Resp B/P (MAP) Pulse Ox O2 Delivery O2 Flow Rate FiO2 11/05/17 13:13 96 114/72 11/05/17 12:04 97.8 20 95 Nasal Cannula 3.0 97.8 Subjective ROS Limited/Unobtainable: No Constitutional: Reports: no symptoms Allergies: Coded Allergies: BRITTANI INHIBITORS (Unverified Allergy, Unknown, 03/19/15) Objective Last 24 Hour Vital Signs Date Time Temp Pulse Resp B/P (MAP) Pulse Ox O2 Delivery O2 Flow Rate FiO2 11/08/17 21:07 Nasal Cannula 3.0 32 11/08/17 21:07 84 20 98 Nasal Cannula 3.0 32 11/08/17 20:20 74 117/69 11/08/17 20:00 98.9 74 21 117/69 98 Nasal Cannula 2.0 98.9 11/08/17 19:04 Nasal Cannula 3.0 32 11/08/17 19:04 98 Nasal Cannula 3.0 32 11/08/17 17:25 125/80 11/08/17 16:00 89 11/08/17 16:00 97.8 85 20 105/71 96 Nasal Cannula 2.0 97.8 11/08/17 14:05 98.0 11/08/17 13:06 98.0 11/08/17 13:03 122/73 11/08/17 12:00 86 11/08/17 12:00 98.0 88 21 122/53 98 Nasal Cannula 2.0 98.0 11/08/17 08:53 102 130/83 11/08/17 08:53 130/83 11/08/17 08:27 80 16 100 Nasal Cannula 3.0 11/08/17 08:25 Nasal Cannula 3.0 32 11/08/17 08:25 100 Nasal Cannula 3.0 32 11/08/17 08:24 80 16 100 Nasal Cannula 3.0 32 11/08/17 08:00 98.0 104 20 130/83 98 Nasal Cannula 2.0 98.0 11/08/17 08:00 101 11/08/17 04:00 97.9 89 18 102/57 100 Nasal Cannula 2.0 97.9 11/08/17 03:39 95 11/08/17 00:00 97.7 84 20 91/54 97 Nasal Cannula 2.0 97.7 11/07/17 23:43 91 Intake and Output 11/07/17 11/08/17 19:00 07:00 Intake Total 750 ml Output Total 1000 ml 1025 ml Balance -250 ml -1025 ml Intake Oral 750 ml Output Urine Total 1000 ml 1025 ml # Voids 3 # Bowel Movements 2 Laboratory Tests 11/08/17 03:40: Prothrombin Time 20.4H, Prothromb Time International Ratio 1.9H Current Medications Medications (Trade) Dose Ordered Sig/Allen Route PRN Reason Start Time Stop Time Status Last Admin Dose Admin Acetaminophen/ Hydrocodone Bitart ([place] 10/325) 1 tab Q4H PRN ORAL For Pain 11/05/17 09:45 11/12/17 09:44 11/08/17 13:06 Allopurinol (Zyloprim) 100 mg BID ORAL 11/05/17 10:00 12/05/17 09:59 11/08/17 17:25 Aspirin (Ecotrin) 81 mg DAILY ORAL 11/05/17 10:00 12/05/17 09:59 11/08/17 08:52 Atorvastatin Calcium (Lipitor) 80 mg BEDTIME ORAL 11/05/17 21:00 12/05/17 20:59 11/08/17 20:19 Clonidine HCl (Catapres tab) 0.2 mg THREE TIMES A DAY ORAL 11/05/17 09:45 12/05/17 09:44 11/08/17 17:25 Dextrose (Dextrose 50%) 25 ml STAT PRN IV Hypoglycemia 11/05/17 10:00 12/05/17 09:59 Dextrose (Dextrose 50%) 50 ml STAT PRN IV Hypoglycemia 11/05/17 10:00 12/05/17 09:59 11/07/17 16:58 Diphenhydramine HCl (Benadryl) 25 mg BEDTIME ORAL 11/05/17 21:00 12/05/17 20:59 11/08/17 20:19 Furosemide (Lasix) 20 mg EVERY 12 HOURS ORAL 11/06/17 21:00 12/06/17 20:59 11/08/17 20:18 Glipizide (Glucotrol) 5 mg BIAC ORAL 11/05/17 16:30 12/05/17 16:29 11/08/17 16:23 Hydrochlorothiazide (Hydrodiuril) 25 mg DAILY ORAL 11/05/17 09:45 12/05/17 09:44 11/08/17 08:52 Insulin Aspart (NovoLOG) BEFORE MEALS AND HS SUBQ 11/05/17 11:30 12/05/17 11:29 11/08/17 16:26 Ipratropium [place] (Atrovent) 500 mcg Q6HRT PRN HHN Shortness of Breath 11/05/17 22:00 11/10/17 21:59 Labetalol HCl (Normodyne) 300 mg Q12HR ORAL 11/05/17 11:00 12/05/17 10:59 11/08/17 20:20 Pantoprazole (Protonix) 40 mg DAILY ORAL 11/05/17 09:45 12/05/17 09:44 11/08/17 08:52 Potassium Chloride (K-Dur) 20 meq TWICE A DAY ORAL 11/06/17 09:00 12/06/17 08:59 11/08/17 17:26 Salmeterol Xinafoate/ Fluticasone (Advair 250/50 Diskus) 1 puffs EVERY 12 HOURS INH 11/05/17 11:00 12/05/17 10:59 11/08/17 08:24 Tamsulosin HCl (Flomax) 0.4 mg BEDTIME ORAL 11/05/17 21:00 12/05/17 20:59 11/08/17 20:19 Vitamin D (Vitamin D) 1,000 intlu DAILY ORAL 11/05/17 09:45 12/05/17 09:44 11/08/17 08:52 Warfarin Sodium (Coumadin per pharmacy) 1 ea DAILY PRN MISC PER PROTOCOL 11/05/17 10:45 12/05/17 10:44 Moe Hand MD Nov 08, 2017 22:34
[2017-11-09] VITALS: BP 128/105
[2017-11-09] MEDS ORDERED: Ipratropium 0.02% Inh Soln 2.5ml UD HHN PRN (01:00)
[2017-11-09] MEDS: HYDROcodone/Acetamin 10/325 tab ORAL PRN ×2 (02:21→09:33)
[2017-11-09 04:00] VITALS: BP 100/64
[2017-11-09] MEDS: NovoLOG Insulin Flexpen SUBQ SCH ×2 (06:10→11:30)
[2017-11-09] MEDS ORDERED: GlipiZIDE 5mg tab ORAL SCH (06:30)
[2017-11-09 07:23] LABS: HEMATOCRIT 29.6 % (42.0-52.0); HEMOGLOBIN 9.8 G/DL (14.2-18.0); MEAN CORPUSCULAR VOLUME 97 FL (80-99); PLATELET COUNT 106 K/UL (150-450); RED BLOOD COUNT 3.07 M/UL (4.70-6.10); RED CELL DISTRIBUTION WIDTH 18.2 % (11.6-14.8); WHITE BLOOD COUNT 2.5 K/UL (4.8-10.8)
[2017-11-09 07:42] LABS: ALANINE AMINOTRANSFERASE 36 U/L (12-78); ALBUMIN 2.7 G/DL (3.4-5.0); ALBUMIN/GLOBULIN RATIO 0.6 (1.0-2.7); ALKALINE PHOSPHATASE 71 U/L (46-116); ANION GAP 9 mmol/L (5-15); ASPARTATE AMINO TRANSFERASE 49 U/L (15-37); BILIRUBIN,TOTAL 0.6 MG/DL (0.2-1.0); BLOOD UREA NITROGEN 47 mg/dL (7-18); CALCIUM 8.3 MG/DL (8.5-10.1); CARBON DIOXIDE 26 MMOL/L (21-32); CHLORIDE 101 MMOL/L (98-107); CREATININE 2.2 MG/DL (0.55-1.30); POTASSIUM 4.3 MMOL/L (3.5-5.1); SODIUM 136 MMOL/L (136-145)
[2017-11-09 07:44] LABS: INR 2.4 (0.9-1.1)
[2017-11-09 08:00] VITALS: BP 123/76
[2017-11-09] MEDS ORDERED: Aspirin EC 81mg tab ORAL SCH (09:00)
[2017-11-09] MEDS ORDERED: Labetalol 200mg tab ORAL SCH (09:00)
[2017-11-09] MEDS ORDERED: Advair 250/50 Inhaler - 14 dose INH SCH (09:00)
[2017-11-09] MEDS ORDERED: Vitamin D 1000 IU Tab ORAL SCH (09:00)
[2017-11-09] MEDS ORDERED: Allopurinol 100mg Tab ORAL SCH (09:00)
[2017-11-09] MEDS: cloNIDine 0.2mg Tab ORAL SCH ×2 (09:31→12:32)
[2017-11-09 12:00] VITALS: BP 122/85
[2017-11-09 12:32] VITALS: BP 122/85
--- NOTE | 2017-11-09 14:21 | General Progress Note ---
Assessment/Plan Assessment/Plan Large pleural effusion -s/p post thoracentesis. COPD exacerbation - per Pul. CHF - may need repeat w/u Pain control for severe LBP. Creatinine 2.2 (admission 1.9) OK for DC home Subjective Allergies: Coded Allergies: BRITTANI INHIBITORS (Unverified Allergy, Unknown, 03/19/15) Subjective C/o Rt. lower back pain. Less dyspneic. Post thoracentesis. Objective Last 24 Hour Vital Signs Date Time Temp Pulse Resp B/P (MAP) Pulse Ox O2 Delivery O2 Flow Rate FiO2 11/09/17 12:32 122/85 11/09/17 12:00 85 11/09/17 12:00 98.2 86 18 122/85 96 Nasal Cannula 2.0 98.2 11/09/17 09:33 97 123/76 11/09/17 09:31 123/76 11/09/17 08:09 Nasal Cannula 2.0 28 11/09/17 08:09 Nasal Cannula 2.0 28 11/09/17 08:09 98 Nasal Cannula 2.0 28 11/09/17 08:09 Nasal Cannula 2.0 28 11/09/17 08:00 97.6 97 20 123/76 100 Nasal Cannula 2.0 97.6 11/09/17 08:00 94 11/09/17 04:00 99.4 88 20 100/64 95 Nasal Cannula 2.0 99.4 11/09/17 03:32 91 11/09/17 00:00 98.9 95 20 128/105 95 Nasal Cannula 2.0 98.9 11/08/17 23:31 87 11/08/17 21:07 Nasal Cannula 3.0 32 11/08/17 21:07 84 20 98 Nasal Cannula 3.0 32 11/08/17 20:20 74 117/69 11/08/17 20:01 87 11/08/17 20:00 98.9 74 21 117/69 98 Nasal Cannula 2.0 98.9 11/08/17 19:04 Nasal Cannula 3.0 32 11/08/17 19:04 98 Nasal Cannula 3.0 32 11/08/17 17:25 125/80 11/08/17 16:00 89 11/08/17 16:00 97.8 85 20 105/71 96 Nasal Cannula 2.0 97.8 Intake and Output 11/08/17 11/09/17 19:00 07:00 Output Total 300 ml 800 ml Balance -300 ml -800 ml Output Urine Total 300 ml 800 ml # Voids 2 2 Laboratory Tests 11/09/17 06:35: White Blood Count 2.5L, Red Blood Count 3.07L, Hemoglobin 9.8L, Hematocrit 29.6L , Mean Corpuscular Volume 97, Mean Corpuscular Hemoglobin 31.9H, Mean Corpuscular Hemoglobin Concent 33.0, Red Cell Distribution Width 18.2H, Platelet Count 106L, Mean Platelet Volume 7.7, Neutrophils (%) (Auto) , Lymphocytes (%) (Auto) , Monocytes (%) (Auto) , Eosinophils (%) (Auto) , Basophils (%) (Auto) , Differential Total Cells Counted 100, Neutrophils % ( Manual) 78H, Lymphocytes % (Manual) 17L, Monocytes % (Manual) 2, Eosinophils % ( Manual) 3, Basophils % (Manual) 0, Band Neutrophils 0, Platelet Estimate DecreasedL, Platelet Morphology Normal, Hypochromasia , Anisocytosis 1+, Prothrombin Time 25.4H, Prothromb Time International Ratio 2.4H, Sodium Level 136, Potassium Level 4.3, Chloride Level 101, Carbon Dioxide Level 26, Anion Gap 9, Blood Urea Nitrogen 47H, Creatinine 2.2H, Estimat Glomerular Filtration Rate 36.4, Glucose Level 98, Calcium Level 8.3L, Magnesium Level 2.0, Total Bilirubin 0.6, Aspartate Amino Transf (AST/SGOT) 49H, Alanine Aminotransferase ( ALT/SGPT) 36, Alkaline Phosphatase 71, Total Protein 7.2, Albumin 2.7L, Globulin 4.5, Albumin/Globulin Ratio 0.6L Height (Feet): 5 Height (Inches): 9.49 Weight (Pounds): 135 Objective Cv RR Lungs B wheezes Abd SNT. BS + E +2 edema Harsh Maher MD Nov 09, 2017 14:21
[2017-11-09] MEDS ORDERED: Warfarin Sodium 7.5mg ORAL ONE (17:00)
[2017-11-09] MEDS ORDERED: Atorvastatin 80mg tab ORAL SCH (21:00)
[2017-11-09] MEDS ORDERED: Tamsulosin 0.4mg cap ORAL SCH (21:00)
--- NOTE | 2017-11-10 09:58 | Discharge Summary ---
Discharge Summary Discharge Summary _ DATE OF ADMISSION: 11/05/2017 DATE OF DISCHARGE: 11/09/2017 REASON FOR ADMISSION: 67 years old male with past medical history significant for myocardial infarction , status post PTCA, paroxysmal atrial fibrillation,. status post ablation 2016 ,diabetes mellitus type 2, high cholesterol, hypertensive cardiovascular disease, ischemic heart disease, cardiomyopathy, history of DVT and pulmonary emboli, COPD, non-small cell lung cancer, on chemotherapy, CVA 2017 presented to emergency department with shortness of breath and associated nonproductive cough. He denied chest pain. He denied hemoptysis. Patient was not using any diuretic at home but before he was on Lasix. He denied fever ,chills; he denied leg edema, calf pain. Upon evaluation in emergency department , patient noted to be tachypneic, tachycardic and had elevated blood pressure. Patient started on supplemental oxygen to keep pulse oximetry above 92%. EKG revealed sinus tachycardia, no acute ischemic changes. Chest x-ray showed right pleural effusion,moderate to large size, and the evidence of CHF. Glucose 137 BUN 23 creatinine 1.9, troponin 0.016, pro BNP 3703. Urine toxicology screen negative Urinalysis revealed +3 protein but was negative for evidence of UTI. Patient was treated for hypertensive urgency with improvement in blood pressure. Patient admitted with diagnosis of re-accumulation of right pleural effusion, rule out malignant effusion, ischemic heart disease, cardiomyopathy, hypertensive cardiovascular disease with hypertensive urgency, history of lung cancer, on chemotherapy, history of paroxysmal atrial fibrillation, COPD, peripheral vascular disease, history of DVT, history of PE, type 2 diabetes mellitus, renal insufficiency CONSULTANTS: marilu Hand HOSPITAL COURSE: Patient admitted to telemetry floor. Pulmonology consult was requested. Home medications were resumed. Corn Press Operator seen and evaluated the patient Supplemental oxygen provided as needed to keep pulse oximetry above 92%. Pulmonary toilet provided ATC and as needed, no need for steroids. Patient subsequently undergone thoracentesis which yielded 1350 mL of pleural fluid. Chest x-ray post thoracentesis revealed resolved right pleural effusion and no radiographic evidence of complication. Improved interstitial congestion over one day. Respiratory status improved. Echocardiogram revealed global left ventricular hypokinesis with severe hypokinesis of the apical region with left ventricular ejection fraction estimated to be 40%, no evidence of pericardial effusion. Moderate aortic regurgitation. Moderate mitral regurgitation. Right ventricular systolic pressure of 30 Cardiac medications were continued , including dual antiplatelet therapy with aspirin and Brilinta. Anti-failure medication regimen was implemented, consisting of beta tameka and Lasix. Renal parameters and volumes were closely monitored. Blood pressure was managed with clonidine and beta tameka. Doses uptitrated to keep blood pressure under control. Blood pressure stabilized . Statin was continued. Anticoagulation initially stopped in order to have thoracentesis. Patient received 1 unit of fresh frozen plasma , and subsequently thoracentesis was done. Afterwards patient started on Lovenox and Coumadin to bridge INR to therapeutic window. After INR reached 2.2, Lovenox was discontinued and Coumadin was continued to keep INR in therapeutic range. Prior to discharge INR 2.4. Renal parameters and electrolytes were closely monitored. Creatinine from initial 1.9 up to 2.2. on discharge. Noted +3 protein in urine, possible diabetic nephropathy. Patient likely had chronic renal insufficiency and need to follow u with primary care provider as outpatient for additional workup and management. Blood sugar was managed with the sliding scale insulin, and remained stable. GI prophylaxis provided. Pain management provided Supportive care provided Bowel regimen instituted FINAL DIAGNOSES: Recurrent right pleural effusion ,status post thoracentesis Congestive heart failure with cardiomyopathy (EF 40%) Ischemic heart disease Hypertensive cardiovascular disease with hypertensive urgency (resolved) COPD with exacerbation History of small cell lung cancer, on chemotherapy History of paroxysmal atrial fibrillation ,status post ablation Peripheral vascular disease History of DVT History of PE Type 2 diabetes mellitus Renal insufficiency , likely chronic DISCHARGE MEDICATIONS: See Medication Reconciliation list. DISCHARGE INSTRUCTIONS: Patient was discharged home. Follow up with primary care provider in one week. I have been assigned to dictate discharge summary for this account. I was not involved in the patient's management. Bhumika Montilla NP Nov 10, 2017 09:58
== END 2017-11-09 15:40 | disposition home or self-care (01) | DRG 194 ==
LOC: EDBD 06:11 → EMR 06:15 → EDBEDREQ 06:26 → 2W 06:44 → EDBEDREQ 07:30 → 2E 11-08 22:24
PROC: 0W993ZZ Drainage of Right Pleural Cavity, Percutaneous Approach (ICD-10-PCS; principal; 2017-11-05)
PROC: 30233K1 Transfusion of Nonautologous Frozen Plasma into Peripheral Vein, Percutaneous Approach (ICD-10-PCS; 2017-11-06)
DX: I11.0 Hypertensive heart disease with heart failure (principal); J91.8 Pleural effusion in other conditions classified elsewhere; I48.0 Paroxysmal atrial fibrillation; J44.1 Chronic obstructive pulmonary disease with (acute) exacerbation; I73.9 Peripheral vascular disease, unspecified; I25.5 Ischemic cardiomyopathy; I50.33 Acute on chronic diastolic (congestive) heart failure; Z85.118 Personal history of other malignant neoplasm of bronchus and lung; Z86.718 Personal history of other venous thrombosis and embolism; Z86.711 Personal history of pulmonary embolism; E11.9 Type 2 diabetes mellitus without complications; Z79.01 Long term (current) use of anticoagulants; Z87.891 Personal history of nicotine dependence; I16.0 Hypertensive urgency; I25.2 Old myocardial infarction; I25.10 Atherosclerotic heart disease of native coronary artery without angina pectoris; Z95.5 Presence of coronary angioplasty implant and graft; I50.9 Heart failure, unspecified; I34.0 Nonrheumatic mitral (valve) insufficiency; I35.1 Nonrheumatic aortic (valve) insufficiency; Z88.8 Allergy status to other drugs, medicaments and biological substances; E78.00 Pure hypercholesterolemia, unspecified; Z86.73 Personal history of transient ischemic attack (TIA), and cerebral infarction without residual deficits
CPT/HCPCS: 36415; 71045; 76942; 80048; 80053; 80307; 81003; 82550; 82962; 83615; 83735; 83880; 84484; 85007; 85025; 85610; 85730; 86850; 86900; 86901; 86927; 87081; 93005; 93306; 94640; 94664; 94760; 99285; J1815; J8499

== ENCOUNTER 2017-11-27 03:28 | Inpatient (IN) | payer MEDICARE, MEDICAID ==
[2017-11-27] VITALS (8 sets, daily range): BP systolic 161–182; BP diastolic 96–133
[~2017-11-27] VITALS: Ht 172.7 cm; Wt 60.8 kg
[2017-11-27] MEDS ORDERED: HYDRALAZINE HC100 MG ORAL (03:40)
[2017-11-27] MEDS ORDERED: GLIPIZIDE5 MG ORAL (03:40)
[2017-11-27] MEDS ORDERED: ADVAIR 250/501 PUFFS INH (03:40)
[2017-11-27] MEDS ORDERED: HYDROCHLOROTHIA25 MG ORAL (03:40)
[2017-11-27] MEDS ORDERED: ALLOPURINOL100 M1 ORAL (03:40)
[2017-11-27] MEDS ORDERED: Solu-MEDROL 125mg Inj IVP ONE (03:45)
[2017-11-27] MEDS ORDERED: Albuterol ud Inhalation HHN ONE (03:45)
[2017-11-27] MEDS ORDERED: Ipratropium 0.02% Inh Soln 2.5ml UD HHN ONE (03:45)
--- NOTE | 2017-11-27 04:13 | Emergency Room Report ---
History of Present Illness General Chief Complaint: Dyspnea/Respdistress Source: Patient, EMS Present Illness HPI This is a 67-year-old male with a history of COPD. He also has history of non- small cell carcinoma of his right lung. He is currently undergoing chemotherapy. He had to thoracentesis done already. He presents with chief complaint of shortness of breath. Onset tonight. Increasing cough. Worse with exertion. Worse with lying flat. No nausea no vomiting. Per EMS he was hypoxic. He was given albuterol and aspirated here. Patient does not use albuterol or have a nebulizer machine. He's only prescribed Advair patient. Allergies: Coded Allergies: BRITTANI INHIBITORS (Unverified Allergy, Unknown, 03/19/15) Patient History Past Medical History: see triage record, old chart reviewed Past Surgical History: other Pertinent Family History: none Social History: Denies: smoking - history of Immunizations: other Reviewed Nursing Documentation: PMH: Agreed; PSxH: Agreed Nursing Documentation-PMH Hx Cardiac Problems: Yes - CHF, CAD Hx Hypertension: Yes Hx Pacemaker: No Hx COPD: Yes Hx Diabetes: Yes - type 2 Hx Cancer: Yes - Lung non-small cell carcoma Hx Gastrointestinal Problems: No Hx Dialysis: No Hx Neurological Problems: No Hx Cerebrovascular Accident: Yes - 06/2016 Hx Seizures: No Review of Systems Eye: Denies: eye pain, blurred vision ENT: Denies: ear pain, nose congestion, throat swelling Respiratory: Reports: cough, shortness of breath Cardiovascular: Denies: chest pain, palpitations Gastrointestinal: Denies: abdominal pain, diarrhea, nausea, vomiting Musculoskeletal: Denies: back pain, joint pain Skin: Denies: rash Neurological: Denies: headache, numbness Endocrine: Denies: increased thirst, increased urine Hematologic/Lymphatic: Denies: easy bruising All Other Systems: negative except mentioned in HPI Physical Exam Vital Signs Date Time Temp Pulse Resp B/P (MAP) Pulse Ox O2 Delivery O2 Flow Rate FiO2 11/27/17 03:20 98.7 104 22 158/93 97 Room Air 98.8 11/27/17 03:40 3.0 32 vitals unremarkable Sp02 EP Interpretation: reviewed, normal General Appearance: well appearing, alert, moderate distress Head: normocephalic, atraumatic Eyes: bilateral eye PERRL, bilateral eye EOMI ENT: hearing grossly normal, normal pharynx Neck: full range of motion, supple, no meningismus Respiratory: chest non-tender, normal breath sounds, decreased breath sounds, accessory muscle use, rhonchi Cardiovascular #1: regular rate, rhythm, no murmur Gastrointestinal: normal bowel sounds, non tender, no mass, no organomegaly, no bruit, non-distended Musculoskeletal: back normal, gait/station normal, normal range of motion Neurologic: alert, oriented x3 Psychiatric: mood/affect normal Skin: warm/dry Medical Decision Making Diagnostic Impression: Primary Impression: COPD exacerbation Additional Impressions: Pneumonia Qualified Codes: J18.1 - Lobar pneumonia, unspecified organism Lung cancer Qualified Codes: C34.31 - Malignant neoplasm of lower lobe, right bronchus or lung Anemia Qualified Codes: D64.9 - Anemia, unspecified CKD (chronic kidney disease) Qualified Codes: N18.9 - Chronic kidney disease, unspecified ER Course Patient presents with COPD exacerbation. He has non-small cell carcinoma on the right lower lobe. This may cause an obstructive pneumonia. Antibiotics given. He felt better now. Wheezing resolved. We'll admit for IV antibiotics. I held off on IV fluid boluses because of his previous CHF/ pleural effusion. Prognosis is poor. I contacted Dr. Horton and Dr. Del Rosario for admission. Lab Results Impression labs unremarkable EKG Diagnostic Results Rate: normal Rhythm: NSR ST Segments: no acute changes Rhythm Strip Diag. Results Rhythm Strip Time: 04:12 EP Interpretation: yes Rate: 98 Rhythm: NSR, no PVC's, no ectopy Chest X-Ray Diagnostic Results Chest X-Ray Diagnostic Results : Chest X-Ray Ordered: Yes # of Views/Limited/Complete: 1 View Indication: Shortness of Breath EP Interpretation: Yes Interpretation: no pneumothorax, other - RLL infiltrate, mass, and effusion Impression: Other - RLL infiltrate Electronically Signed by: Yassine Puente MD Last Vital Signs Date Time Temp Pulse Resp B/P (MAP) Pulse Ox O2 Delivery O2 Flow Rate FiO2 11/27/17 03:52 105 20 98 Nasal Cannula 3.0 32 11/27/17 03:20 98.7 158/93 98.8 Status: improved Disposition: ADMITTED INPATIENT Condition: Serious Referrals: NOT CHOSEN AMISH/,REFERRING (PCP) YASSINE PUENTE M.D. Nov 27, 2017 04:13
[2017-11-27] MEDS ORDERED: Cefepime HCl 1 GM in D5W 55 ML IVPB ONE (04:15)
[2017-11-27 04:42] LABS: APPEARANCE,URINE CLEAR; BILIRUBIN, URINE NEGATIVE (NEGATIVE); COLOR,URINE PALE YELLOW; GLUCOSE, URINE (UA) NEGATIVE (NEGATIVE); KETONES,URINE NEGATIVE (NEGATIVE); LEUKOCYTE ESTERASE ,URINE NEGATIVE (NEGATIVE); NITRITE,URINE NEGATIVE (NEGATIVE); PH,URINE 5 (4.5-8.0); PROTEIN,URINE 2+ (NEGATIVE); UROBILINOGEN,URINE NORMAL MG/DL (0.0-1.0)
[2017-11-27 04:44] LABS: EOSINOPHILS % (AUTO) 0.7 % (0.0-3.0); HEMATOCRIT 34.1 % (42.0-52.0); MEAN CORPUSCULAR VOLUME 100 FL (80-99); MONOCYTES % (AUTO) 12.1 % (1.0-10.0); NEUTROPHILS % (AUTO) 62.3 % (45.0-75.0); PLATELET COUNT 138 K/UL (150-450); RED BLOOD COUNT 3.41 M/UL (4.70-6.10); WHITE BLOOD COUNT 5.5 K/UL (4.8-10.8)
[2017-11-27 05:06] LABS: INR 1.6 (0.9-1.1)
[2017-11-27 05:13] LABS: ANION GAP 10 mmol/L (5-15); BLOOD UREA NITROGEN 19 mg/dL (7-18); CARBON DIOXIDE 22 MMOL/L (21-32); CHLORIDE 111 MMOL/L (98-107); CREATININE 1.8 MG/DL (0.55-1.30); POTASSIUM 3.7 MMOL/L (3.5-5.1); SODIUM 143 MMOL/L (136-145)
[2017-11-27 05:28] LABS: ALANINE AMINOTRANSFERASE 50 U/L (12-78); ALBUMIN 2.8 G/DL (3.4-5.0); ALBUMIN/GLOBULIN RATIO 0.7 (1.0-2.7); ALKALINE PHOSPHATASE 126 U/L (46-116); ASPARTATE AMINO TRANSFERASE 44 U/L (15-37); BILIRUBIN,TOTAL 0.4 MG/DL (0.2-1.0); CKMB 1.3 NG/ML (0.0-3.6); CREATINE KINASE 205 U/L (26-308)
[2017-11-27] MEDS ORDERED: guaiFENesin w/Codeine 5ml Liq ud ORAL STA (06:54)
[2017-11-27] MEDS ORDERED: Albuterol ud Inhalation HHN STA (06:57)
[2017-11-27] MEDS ORDERED: Albuterol ud Inhalation ONE (07:14)
[2017-11-27] MEDS ORDERED: Lidocaine 1% Plain 30 ml INJ ONE (07:45)
[2017-11-27] MEDS ORDERED: Albuterol/Ipratropium 3ml neb HHN PRN (09:00)
[2017-11-27] MEDS: Advair 250/50 Inhaler - 14 dose INH SCH ×2 (12:00→20:10)
--- NOTE | 2017-11-27 15:46 | Diagnostic Imaging Report ---
Indication: Shortness of breath Technique: XRAY Chest 1v Comparison: 11/06/2017 Findings: Heart size and mediastinal contours stable. There is interval development of patchy right-sided airspace opacities and a small right pleural effusion. No pneumothorax. There is probable peribronchial thickening. Impression: Small right pleural effusion and right basilar atelectasis/consolidation. Study obtained via the emergency department however patient admitted to the hospital at time of dictation of the final report.
[2017-11-27] MEDS: Norco 5mg/325mg tab ORAL PRN (15:59)
--- NOTE | 2017-11-27 17:15 | History and Physical Report ---
DATE OF ADMISSION: 11/27/2017 CHIEF COMPLAINT: Shortness of breath. HISTORY OF PRESENT ILLNESS: This is a 67-year-old male, who was just discharged from this hospital about 10 days ago with chronic obstructive pulmonary disease exacerbation and pleural effusion. The patient underwent thoracentesis with large amount of fluid removed. The patient presented earlier this morning to the emergency department with gradual increasing shortness of breath. PAST MEDICAL HISTORY: 1. Chronic obstructive pulmonary disease. 2. History of lung cancer. 3. Ischemic heart disease. 4. Type 2 diabetes mellitus. 5. Hypertensive cardiovascular disease. 6. Severe peripheral vascular disease. 7. History of deep vein thrombosis. 8. History of pulmonary emboli. 9. Chronic kidney disease stage 3. 10. Congestive heart failure with cardiomyopathy ejection fraction around 40%. 11. History of a small cell lung cancer, on chemotherapy. 12. History of paroxysmal atrial fibrillation status post ablation. 13. Benign prostatic hypertrophy. HOME MEDICATIONS: [place] p.r.n., allopurinol, baby aspirin, atorvastatin, carvedilol, vitamin D3, clonidine, Benadryl p.r.n., glipizide, hydralazine, hydrochlorothiazide, Protonix, Advair Diskus, Brilinta, tamsulosin, and Coumadin. ALLERGIES: BRITTANI inhibitors. FAMILY HISTORY: Unremarkable. SOCIAL HISTORY: He lives at home. HABITS: He is a past heavy cigarette smoker, who quit. There is no history of illicit drug abuse. REVIEW OF SYSTEMS: HEENT: Hearing and eyesight are normal. ENDOCRINE: Significant for type 2 diabetes mellitus. There is no history of thyroid problems. RESPIRATORY: Please refer to history of present illness and past medical history. CARDIOVASCULAR: Please refer to past medical history. GENITOURINARY: He has nocturia x2 to 3. There is no history of hematuria. NEUROLOGIC: No history of stroke. PHYSICAL EXAMINATION: GENERAL: This is an elderly male, who is in moderate respiratory distress. VITAL SIGNS: Blood pressure 163/133, pulse 91, respirations 17 and labored, temperature 97.3 oral, and O2 saturation 100% on 3 liters/minutes nasal cannula. HEENT: The head is normocephalic and atraumatic. Pupils are equal, round, and reactive to light and accommodation consensually. NECK: Supple. Trachea midline. There was no lymphadenopathy or thyromegaly. LUNGS: Bilateral wheezes. HEART: Regular rate and rhythm without rubs, murmurs, or gallops. ABDOMEN: Soft and nontender. Bowel sounds were active. EXTREMITIES: No clubbing, cyanosis, or edema. NEUROLOGICAL: He is alert and oriented x4. Cranial nerves II through XII are intact. LABORATORY AND ANCILLARY DATA: CBC within normal limits. Serum chemistry, BUN 19 and creatinine 1.8. Electrolytes within normal limits. INR is 1.6. Chest x-ray shows an infiltrates. ASSESSMENT: 1. Pneumonia. 2. Chronic obstructive pulmonary disease. 3. History of lung cancer. 4. Ischemic heart disease. 5. Type 2 diabetes mellitus. 6. Hypertensive cardiovascular disease. 7. Severe peripheral vascular disease. 8. History of deep vein thrombosis. 9. History of pulmonary emboli. 10. Chronic kidney disease stage 3. 11. Congestive heart failure with cardiomyopathy ejection fraction around 40%. 12. History of a small cell lung cancer, on chemotherapy. 13. History of paroxysmal atrial fibrillation status post ablation. 14. Benign prostatic hypertrophy. PLAN: 1. IV antibiotics. 2. Continue home medications. 3. Intravenous steroid. 4. Intense respiratory treatment. 5. Pulmonary consult. Harsh Maher M.D. DR: BRIAN JOB#: [id number] CC:
[2017-11-27] MEDS: Albuterol/Ipratropium 3ml neb HHN SCH ×2 (17:16→20:10)
[2017-11-27] MEDS: NovoLOG Insulin Flexpen SUBQ SCH (20:34)
[2017-11-27] MEDS: Heparin 5000 units/ml inj SUBQ SCH (20:36)
[2017-11-27] MEDS ORDERED: Solu-MEDROL 40mg Inj IVP SCH (21:00)
--- NOTE | 2017-11-27 22:31 | Consultation ---
DATE OF CONSULTATION: 11/27/2017 PULMONARY CONSULTATION CONSULTING PHYSICIAN: Albino Otero M.D. REASON FOR CONSULTATION: COPD and shortness of breath. HISTORY OF PRESENT ILLNESS: This is a 67-year-old male with a history of COPD, non-small cell cancer, history of pleural effusion, and undergoing chemotherapy. The patient with prior multiple thoracentesis. The patient presents with increasing shortness of breath, increasing cough and congestion, and difficulty with breathing. The patient was given albuterol and is now admitted for COPD exacerbation, shortness of breath, and failure to thrive. The patient's care was discussed and reviewed and does recognize me. He appears to be mildly dyspneic with any activity. PAST MEDICAL HISTORY: Notable for the above. CHF, COPD, CAD, lung cell cancer, non-small cell, history of pleural effusion, malignant, history of chemotherapy, history of CVA, and history of diabetes. MEDICATIONS: Reviewed. ALLERGIES: Reviewed. REVIEW OF SYSTEMS: Otherwise as above. All 10-points reviewed and otherwise negative. PHYSICAL EXAMINATION: GENERAL: A well-developed male. Mildly short of breath. VITAL SIGNS: Blood pressure 163/133, pulse 91, respirations 19, sats 100% on 3 liters, and temperature 97.3. HEENT: Negative. NECK: Supple. No adenopathy. LUNGS: With reduced air entry with scattered wheezes. CARDIAC: S1 and S2. Borderline tachycardic without murmurs, but distant. ABDOMEN: Soft and nontender and no distention. EXTREMITIES: No cyanosis or clubbing. There is mild edema. NEUROLOGIC: Grossly nonfocal. Able to ambulate. LABORATORY DATA: Reviewed. White count 5.5, hemoglobin 11, hematocrit 34, and platelets of 138,000. Chemistry is noted and reviewed. The BUN is 19 and creatinine 1.8. Liver enzymes noted. BNP 5529. IMPRESSION: 1. Chronic obstructive pulmonary disease with acute exacerbation. 2. Shortness of breath. 3. Respiratory insufficiency. 4. Possible underlying infection. 5. History of lung cancer. 6. Evidence of hypoxemia. RECOMMENDATIONS: 1. Add IV Solu-Medrol. 2. Antibiotics IV empiric. 3. Respiratory treatments. 4. Continue Solu-Medrol. 5. Obtain arterial blood gas. 6. Followup x-ray and imaging and monitor for change aiming for the stabilization. Albino Otero M.D. DR: ALEXA JOB#: [id number] CC: FERNANDEZ
[2017-11-28] VITALS: BP 162/104
[2017-11-28] MEDS: Albuterol/Ipratropium 3ml neb HHN SCH ×7 (00:49→23:43)
[2017-11-28] MEDS: Norco 5mg/325mg tab ORAL PRN ×2 (00:59→12:47)
--- NOTE | 2017-11-28 01:01 | Consultation ---
DATE OF CONSULTATION: 11/27/2017 HEMATOLOGY/ONCOLOGY CONSULTATION CONSULTING PHYSICIAN: Anurag Salguero M.D. REQUESTING PHYSICIAN: Harsh Maher M.D. REASON FOR CONSULTATION: Evaluation of lung cancer. IDENTIFYING DATA: Dear Dr. Maher, The patient is a pleasant 67-year-old, male with past medical history, which is significant for metastatic colon cancer, has been stable, on Avastin, carboplatin, Alimta; as well as COPD; type 2 diabetes mellitus; hypertensive heart disease; severe peripheral vascular disease, history of DVT, history of pulmonary emboli, CAD stage III, CHF, EF of 40%, paroxysmal atrial fibrillation, status post ablation, BPH history, has been in the past seen by Dr. Bradley, recently discharged 10 days ago with history of COPD, pleural effusion, underwent thoracentesis, large amount of fluid was removed. The patient at this time presents with increasing shortness of breath, noted to have worsening pleural effusion. Hematology Service consulted for further evaluation and treatment. PAST MEDICAL HISTORY: COPD, lung cancer, ischemic cardiac disease, type 2 diabetes, hypertensive heart disease, cerebrovascular disease, DVT, PE and CKD stage 3. HOME MEDICATIONS: Allopurinol, baby aspirin, Lipitor, D3, glipizide, hydralazine, Protonix, Advair, Brilinta, tamsulosin, and codeine. ALLERGIES: BRITTANI inhibitor. FAMILY HISTORY: Unremarkable. SOCIAL HISTORY: Lives at home. Prior history of heavy smoking use. No illicit drug use. No alcohol. REVIEW OF SYSTEMS: CONSTITUTIONAL: No fevers, chills, or night sweats. SKIN: No rashes, bumps, or itching. HEENT: No headache, hearing or visual changes. BREASTS: No lumps, pain, or discharge. PULMONARY: No cough, sputum, or shortness of breath. GASTROINTESTINAL: No nausea, vomiting or diarrhea. GENITOURINARY: No dysuria, frequency, or urgency. MUSCULOSKELETAL: No muscle, joint swelling, or trauma. PHYSICAL EXAMINATION: VITAL SIGNS: Reviewed. GENERAL: No acute distress. LUNGS: Decreased breath sounds. CARDIOVASCULAR: Regular rate. No S3 or S4. ABDOMEN: Soft, nontender, and nondistended. EXTREMITIES: 1+ edema. LABORATORY AND DIAGNOSTIC DATA: Labs reviewed. Hemoglobin 11 and platelet count decreased. ASSESSMENT AND RECOMMENDATION: 1. Metastatic colon cancer. Getting triple combination chemotherapy, intermittent development of small right-sided pleural effusion. The patient has required thoracentesis in the past. Continue to closely monitor the patient's fluid status. 2. Pulmonary embolism on CT, on anticoagulation on Coumadin. 3. Anemia due to underlying chronic disease. 4. Thrombocytopenia, likely due to recently administered chemotherapy. 5. Coagulopathy, likely due to underlying liver disease. I appreciate consultation. Anurag Salguero M.D. DR: ROD JOB#: [id number] CC:
[2017-11-28 04:00] VITALS: BP 168/102
[2017-11-28] MEDS ORDERED: Guaifenesin/DM 10ml syrup ORAL PRN (04:30)
[2017-11-28] MEDS: Cefepime HCl 1 GM in D5W 55 ML IVPB SCH (05:00)
[2017-11-28] MEDS: cloNIDine 0.2mg Tab ORAL SCH ×3 (05:24→19:56)
[2017-11-28] MEDS: NovoLOG Insulin Flexpen SUBQ SCH ×4 (05:48→20:58)
[2017-11-28] MEDS ORDERED: guaiFENesin w/Codeine 5ml Liq ud ORAL PRN ×3 (07:45→09:00)
[2017-11-28] MEDS: Advair 250/50 Inhaler - 14 dose INH SCH ×2 (08:38→20:16)
--- NOTE | 2017-11-28 08:49 | General Progress Note ---
Assessment/Plan Assessment/Plan COPD Exacerbation - Bronchdil;ators, add steroids Pneumonia - on IV Abx h/o Pe on Warfarin Subjective Allergies: Coded Allergies: BRITTANI INHIBITORS (Unverified Allergy, Unknown, 03/19/15) Subjective Still SOB + Non productive cough Objective Last 24 Hour Vital Signs Date Time Temp Pulse Resp B/P (MAP) Pulse Ox O2 Delivery O2 Flow Rate FiO2 11/28/17 08:42 89 20 96 Nasal Cannula 3.0 32 11/28/17 08:40 85 20 96 Nasal Cannula 3.0 32 11/28/17 05:24 168/102 11/28/17 04:00 101 11/28/17 04:00 98.3 96 23 168/102 (124) 95 98.3 11/28/17 03:42 92 20 95 Nasal Cannula 3.0 32 11/28/17 03:42 91 18 93 Nasal Cannula 3.0 32 11/28/17 01:00 166/117 11/28/17 00:00 90 11/28/17 00:00 98.7 94 23 162/104 (123) 96 98.7 11/27/17 23:30 96 20 95 Nasal Cannula 3.0 32 11/27/17 23:30 90 18 92 Nasal Cannula 3.0 32 11/27/17 21:00 Room Air 11/27/17 20:28 166/117 11/27/17 20:00 92 18 95 Nasal Cannula 3.0 32 11/27/17 20:00 98.6 94 21 169/104 (125) 94 98.6 11/27/17 20:00 94 20 97 Nasal Cannula 3.0 32 11/27/17 20:00 94 11/27/17 17:23 89 20 99 Nasal Cannula 3.0 32 11/27/17 17:16 36 11/27/17 17:16 96 18 99 Nasal Cannula 3.0 32 11/27/17 16:00 97.7 99 20 166/117 (133) 96 97.7 11/27/17 16:00 89 11/27/17 12:00 97.8 99 18 182/107 (132) 98 97.8 11/27/17 12:00 92 11/27/17 09:11 Nasal Cannula 3.0 Intake and Output 11/27/17 11/28/17 19:00 07:00 Output Total 200 ml Balance -200 ml Output Urine Total 200 ml # Voids 3 3 Laboratory Tests 11/27/17 10:53: Arterial Blood pH 7.370, Arterial Blood Partial Pressure CO2 34.0L, Arterial Blood Partial Pressure O2 67.8L, Arterial Blood HCO3 19.0L, Arterial Blood Oxygen Saturation 92.1, Arterial Blood Base Excess -4.8, Bry Test Positive 11/27/17 20:50: Hepatitis A IgM Antibody [Pending], Hepatitis B Surface Antigen [Pending], Hepatitis B Core IgM Antibody [Pending], Hepatitis C Antibody [Pending] Height (Feet): 5 Height (Inches): 8.00 Weight (Pounds): 135 Objective Cv RR Lungs B wheezes + ronhermila Napier SNT. BS + E No CCE Harsh Maher MD Nov 28, 2017 08:49
[2017-11-28] MEDS: Heparin 5000 units/ml inj SUBQ SCH ×2 (09:00→19:56)
[2017-11-28] MEDS ORDERED: Solu-MEDROL 40mg Inj IVP SCH (09:30)
--- NOTE | 2017-11-28 09:32 | Pulmonology Progress Note ---
Assessment/Plan Assessment/Plan IMPRESSION: 1. Chronic obstructive pulmonary disease with acute exacerbation. 2. Shortness of breath. 3. Respiratory insufficiency. pleural effusions 4. Possible underlying infection. 5. History of lung cancer. 6. Evidence of hypoxemia. RECOMMENDATIONS: 1. IV Solu-Medrol. 2. Antibiotics IV empiric. 3. Respiratory treatments. 4. pain management 5.monitor arterial blood gas. 6. Followup x-ray with noted effusions- small and no need to tap impression, plan, and exam edited and reviewed in detail care discussed with RN Subjective Allergies: Coded Allergies: BRITTANI INHIBITORS (Unverified Allergy, Unknown, 03/19/15) Subjective has pain has cough Objective Last 24 Hour Vital Signs Date Time Temp Pulse Resp B/P (MAP) Pulse Ox O2 Delivery O2 Flow Rate FiO2 11/28/17 08:42 89 20 96 Nasal Cannula 3.0 32 11/28/17 08:40 85 20 96 Nasal Cannula 3.0 32 11/28/17 05:24 168/102 11/28/17 04:00 101 11/28/17 04:00 98.3 96 23 168/102 (124) 95 98.3 11/28/17 03:42 92 20 95 Nasal Cannula 3.0 32 11/28/17 03:42 91 18 93 Nasal Cannula 3.0 32 11/28/17 01:00 166/117 11/28/17 00:00 90 11/28/17 00:00 98.7 94 23 162/104 (123) 96 98.7 11/27/17 23:30 96 20 95 Nasal Cannula 3.0 32 11/27/17 23:30 90 18 92 Nasal Cannula 3.0 32 11/27/17 21:00 Room Air 11/27/17 20:28 166/117 11/27/17 20:00 92 18 95 Nasal Cannula 3.0 32 11/27/17 20:00 98.6 94 21 169/104 (125) 94 98.6 11/27/17 20:00 94 20 97 Nasal Cannula 3.0 32 11/27/17 20:00 94 11/27/17 17:23 89 20 99 Nasal Cannula 3.0 32 11/27/17 17:16 36 11/27/17 17:16 96 18 99 Nasal Cannula 3.0 32 11/27/17 16:00 97.7 99 20 166/117 (133) 96 97.7 11/27/17 16:00 89 11/27/17 12:00 97.8 99 18 182/107 (132) 98 97.8 11/27/17 12:00 92 Intake and Output 11/27/17 11/28/17 19:00 07:00 Output Total 200 ml Balance -200 ml Output Urine Total 200 ml # Voids 3 3 Objective WDWN NAD reduced breath sounds bilaterally with some scattered wheeze [id number] without MRG NABS nontender no HSM no CCE nonfocal Laboratory Tests 11/27/17 10:53: Arterial Blood pH 7.370, Arterial Blood Partial Pressure CO2 34.0L, Arterial Blood Partial Pressure O2 67.8L, Arterial Blood HCO3 19.0L, Arterial Blood Oxygen Saturation 92.1, Arterial Blood Base Excess -4.8, Bry Test Positive 11/27/17 20:50: Hepatitis A IgM Antibody [Pending], Hepatitis B Surface Antigen [Pending], Hepatitis B Core IgM Antibody [Pending], Hepatitis C Antibody [Pending] Current Medications Medications (Trade) Dose Ordered Sig/Allen Route PRN Reason Start Time Stop Time Status Last Admin Dose Admin Acetaminophen/ Hydrocodone Bitart ([place] 5/325) 1 tab Q4H PRN ORAL Moderate Pain (Pain Scale 4-6) 11/27/17 14:16 12/04/17 14:15 11/28/17 00:59 Albuterol/ Ipratropium (Albuterol/ Ipratropium) 3 ml Q4HRT HHN 11/27/17 15:00 12/02/17 14:59 11/28/17 08:38 Cefepime HCl 1 gm/ Dextrose 55 ml @ 110 mls/hr Q24H IVPB 11/28/17 05:00 12/05/17 04:59 11/28/17 05:00 Clonidine HCl (Catapres Tab) 0.1 mg Q4H PRN ORAL SBP>150 11/27/17 20:15 12/27/17 20:14 11/28/17 01:00 Clonidine HCl (Catapres tab) 0.2 mg EVERY 8 HOURS ORAL 11/28/17 06:00 12/28/17 05:59 11/28/17 05:24 Dextrose (Dextrose 50%) 25 ml STAT PRN IV Hypoglycemia 11/27/17 17:30 12/27/17 17:29 Dextrose (Dextrose 50%) 50 ml STAT PRN IV Hypoglycemia 11/27/17 17:30 12/27/17 17:29 Guaifenesin/ Codeine Phosphate (Robitussin with codeine) 5 ml Q6H PRN ORAL For Cough 11/28/17 09:30 12/28/17 08:59 Guaifenesin/ Dextromethorphan (Robitussin DM Syrup) 10 ml Q8H PRN ORAL For Cough 11/28/17 09:30 12/28/17 04:29 Heparin Sodium (Porcine) (Heparin 5000 units/ml) 5,000 units EVERY 12 HOURS SUBQ 11/27/17 21:00 12/27/17 20:59 Insulin Aspart (NovoLOG) BEFORE MEALS AND HS SUBQ 11/27/17 21:00 12/27/17 20:59 Methylprednisolone Sodium Succinate (Solu-MEDROL) 40 mg DAILY IVP 11/28/17 09:30 12/28/17 09:29 Salmeterol Xinafoate/ Fluticasone (Advair 250/50 Diskus) 1 puffs BID INH 11/27/17 12:00 12/27/17 11:59 11/28/17 08:38 Alibno Otero MD Nov 28, 2017 09:32
--- NOTE | 2017-11-28 09:51 | General Progress Note ---
Assessment/Plan Status: not improved Assessment/Plan # Metastatic colon cancer. Getting triple combination chemotherapy, intermittent development of small right-sided pleural effusion. The patient has required thoracentesis in the past. --> Continue to closely monitor the patient's fluid status. # Anemia due to underlying chronic disease. --> Anemia w/u reviewed, will trend daily --> Hgb goal >7 # Pulmonary embolism on CT, on anticoagulation on Coumadin. # Thrombocytopenia, likely due to recently administered chemotherapy. # Coagulopathy, likely due to underlying liver disease. The time the note was entered does not necessarily correspond to the time the patient was seen. Subjective Date patient seen: Nov 28, 2017 ROS Limited/Unobtainable: Yes Hematologic/Lymphatic: Reports: anemia Allergies: Coded Allergies: BRITTANI INHIBITORS (Unverified Allergy, Unknown, 03/19/15) All Systems: reviewed and negative except above Subjective No acute events. BP remains elevated, on clonidine. Objective Last 24 Hour Vital Signs Date Time Temp Pulse Resp B/P (MAP) Pulse Ox O2 Delivery O2 Flow Rate FiO2 11/28/17 08:42 89 20 96 Nasal Cannula 3.0 32 11/28/17 08:40 85 20 96 Nasal Cannula 3.0 32 11/28/17 05:24 168/102 11/28/17 04:00 101 11/28/17 04:00 98.3 96 23 168/102 (124) 95 98.3 11/28/17 03:42 92 20 95 Nasal Cannula 3.0 32 11/28/17 03:42 91 18 93 Nasal Cannula 3.0 32 11/28/17 01:00 166/117 11/28/17 00:00 90 11/28/17 00:00 98.7 94 23 162/104 (123) 96 98.7 11/27/17 23:30 96 20 95 Nasal Cannula 3.0 32 11/27/17 23:30 90 18 92 Nasal Cannula 3.0 32 11/27/17 21:00 Room Air 11/27/17 20:28 166/117 11/27/17 20:00 92 18 95 Nasal Cannula 3.0 32 11/27/17 20:00 98.6 94 21 169/104 (125) 94 98.6 11/27/17 20:00 94 20 97 Nasal Cannula 3.0 32 11/27/17 20:00 94 11/27/17 17:23 89 20 99 Nasal Cannula 3.0 32 11/27/17 17:16 36 11/27/17 17:16 96 18 99 Nasal Cannula 3.0 32 11/27/17 16:00 97.7 99 20 166/117 (133) 96 97.7 11/27/17 16:00 89 11/27/17 12:00 97.8 99 18 182/107 (132) 98 97.8 11/27/17 12:00 92 Intake and Output 11/27/17 11/28/17 19:00 07:00 Output Total 200 ml Balance -200 ml Output Urine Total 200 ml # Voids 3 3 Laboratory Tests 11/27/17 10:53: Arterial Blood pH 7.370, Arterial Blood Partial Pressure CO2 34.0L, Arterial Blood Partial Pressure O2 67.8L, Arterial Blood HCO3 19.0L, Arterial Blood Oxygen Saturation 92.1, Arterial Blood Base Excess -4.8, Bry Test Positive 11/27/17 20:50: Hepatitis A IgM Antibody [Pending], Hepatitis B Surface Antigen [Pending], Hepatitis B Core IgM Antibody [Pending], Hepatitis C Antibody [Pending] Height (Feet): 5 Height (Inches): 8.00 Weight (Pounds): 135 General Appearance: no apparent distress EENT: PERRL/EOMI Neck: normal alignment Cardiovascular: normal rate Respiratory/Chest: normal breath sounds, no respiratory distress Abdomen: soft Anurag Salguero MD Nov 28, 2017 09:51
[2017-11-28] MEDS: guaiFENesin w/Codeine 5ml Liq ud ORAL PRN ×2 (12:47→19:56)
[2017-11-28 16:38] VITALS: BP 168/91
[2017-11-28 20:00] VITALS: BP 181/102
[2017-11-29] VITALS (7 sets, daily range): BP systolic 155–182; BP diastolic 97–119
[2017-11-29] MEDS: Norco 5mg/325mg tab ORAL PRN ×3 (01:48→20:47)
[2017-11-29] MEDS: Albuterol/Ipratropium 3ml neb HHN SCH ×6 (03:20→23:39)
[2017-11-29] MEDS ORDERED: Labetalol 200mg tab ORAL ONE (03:45)
[2017-11-29] MEDS: guaiFENesin w/Codeine 5ml Liq ud ORAL PRN ×2 (04:04→20:47)
[2017-11-29] MEDS: Cefepime HCl 1 GM in D5W 55 ML IVPB SCH (05:00)
[2017-11-29] MEDS: GlipiZIDE 5mg tab ORAL SCH ×2 (05:35→16:16)
[2017-11-29] MEDS: NovoLOG Insulin Flexpen SUBQ SCH ×4 (05:35→20:56)
[2017-11-29] MEDS: Advair 250/50 Inhaler - 14 dose INH SCH ×2 (07:30→19:37)
--- NOTE | 2017-11-29 08:07 | Pulmonology Progress Note ---
Assessment/Plan Assessment/Plan IMPRESSION: 1. Chronic obstructive pulmonary disease with acute exacerbation. 2. Shortness of breath. 3. Respiratory insufficiency. pleural effusions 4. Possible underlying infection. 5. History of lung cancer. 6. Evidence of hypoxemia. RECOMMENDATIONS: 1. IV Solu-Medrol.- increase to bid 2. Antibiotics IV empiric. 3. Respiratory treatments. 4. pain management and cough medications as is 5.monitor arterial blood gas. 6. Followup x-ray with noted effusions- small and no need to tap for now impression, plan, and exam edited and reviewed in detail care discussed with RN Subjective Allergies: Coded Allergies: BRITTANI INHIBITORS (Unverified Allergy, Unknown, 03/19/15) Subjective has pain has cough which is dry some sob Objective Last 24 Hour Vital Signs Date Time Temp Pulse Resp B/P (MAP) Pulse Ox O2 Delivery O2 Flow Rate FiO2 11/29/17 07:39 84 16 100 Nasal Cannula 2.0 28 11/29/17 07:31 87 16 100 Nasal Cannula 2.0 28 11/29/17 04:03 102 162/97 11/29/17 04:00 110 11/29/17 04:00 97.4 105 23 162/106 (124) 99 97.4 11/29/17 03:33 102 20 98 Nasal Cannula 2.0 28 11/29/17 03:20 105 20 98 Nasal Cannula 2.0 28 11/29/17 00:00 97.5 97 22 162/97 (118) 99 97.5 11/29/17 00:00 94 11/28/17 23:58 106 20 96 Nasal Cannula 2.0 28 11/28/17 23:43 100 20 100 Nasal Cannula 2.0 28 11/28/17 21:00 Nasal Cannula 3.0 11/28/17 20:27 110 20 96 Nasal Cannula 2.0 28 11/28/17 20:16 98 20 98 Nasal Cannula 2.0 28 11/28/17 20:00 97.9 108 21 181/102 (128) 97 97.9 11/28/17 20:00 99 11/28/17 19:56 168/91 11/28/17 16:38 97.8 97 16 168/91 (116) 98 97.8 11/28/17 16:00 94 11/28/17 15:00 99 20 99 Nasal Cannula 3.0 32 11/28/17 15:00 96 20 95 Nasal Cannula 3.0 32 11/28/17 12:45 168/102 11/28/17 12:11 110 20 98 Nasal Cannula 3.0 32 11/28/17 12:04 104 20 96 Nasal Cannula 3.0 32 11/28/17 12:00 93 11/28/17 09:00 Room Air 11/28/17 08:42 89 20 96 Nasal Cannula 3.0 32 11/28/17 08:40 85 20 96 Nasal Cannula 3.0 32 Intake and Output 11/28/17 11/29/17 19:00 07:00 Intake Total 1600 ml Balance 1600 ml Intake Oral 1600 ml # Voids 7 3 # Bowel Movements 1 Objective WDWN NAD reduced breath sounds bilaterally without rhonchi or wheeze [id number] without MRG NABS nontender no HSM no CCE nonfocal Current Medications Medications (Trade) Dose Ordered Sig/Allen Route PRN Reason Start Time Stop Time Status Last Admin Dose Admin Acetaminophen/ Hydrocodone Bitart ([place] 5/325) 1 tab Q4H PRN ORAL Moderate Pain (Pain Scale 4-6) 11/27/17 14:16 12/04/17 14:15 11/29/17 01:48 Albuterol/ Ipratropium (Albuterol/ Ipratropium) 3 ml Q4HRT HHN 11/27/17 15:00 12/02/17 14:59 11/29/17 07:30 Cefepime HCl 1 gm/ Dextrose 55 ml @ 110 mls/hr Q24H IVPB 11/28/17 05:00 12/05/17 04:59 11/29/17 05:00 Dextrose (Dextrose 50%) 25 ml STAT PRN IV Hypoglycemia 11/27/17 17:30 12/27/17 17:29 Dextrose (Dextrose 50%) 50 ml STAT PRN IV Hypoglycemia 11/27/17 17:30 12/27/17 17:29 Glipizide (Glucotrol) 5 mg BIAC ORAL 11/29/17 06:30 12/29/17 06:29 11/29/17 05:35 Guaifenesin/ Codeine Phosphate (Robitussin with codeine) 5 ml Q6H PRN ORAL For Cough 11/28/17 09:30 8/13/18 08:59 11/29/17 04:04 Guaifenesin/ Dextromethorphan (Robitussin DM Syrup) 10 ml Q8H PRN ORAL For Cough 11/28/17 09:30 12/28/17 04:29 Heparin Sodium (Porcine) (Heparin 5000 units/ml) 5,000 units EVERY 12 HOURS SUBQ 11/27/17 21:00 12/27/17 20:59 11/28/17 09:00 Insulin Aspart (NovoLOG) BEFORE MEALS AND HS SUBQ 11/27/17 21:00 12/27/17 20:59 11/28/17 16:57 Labetalol HCl (Normodyne) 300 mg Q12HR ORAL 11/29/17 09:00 12/29/17 08:59 Methylprednisolone Sodium Succinate (Solu-MEDROL) 40 mg DAILY IVP 11/28/17 09:30 12/28/17 09:29 11/28/17 12:48 Salmeterol Xinafoate/ Fluticasone (Advair 250/50 Diskus) 1 puffs BID INH 11/27/17 12:00 12/27/17 11:59 11/29/17 07:30 Warfarin Sodium (Coumadin per pharmacy) 1 ea DAILY PRN MISC Per rx protocol 11/29/17 08:00 12/29/17 07:59 Warfarin Sodium (Coumadin) 10 mg DAILY ORAL 11/29/17 09:00 12/04/17 08:59 Albino Otero MD Nov 29, 2017 08:07
[2017-11-29] MEDS ORDERED: Labetalol 200mg tab ORAL SCH (09:00)
[2017-11-29] MEDS: Solu-MEDROL 40mg Inj IVP SCH ×2 (09:14→17:21)
[2017-11-29] MEDS: Warfarin Sodium 10mg ORAL SCH ×2 (10:06→10:11)
[2017-11-29] MEDS: Guaifenesin/DM 10ml syrup ORAL PRN (10:06)
[2017-11-29 10:30] LABS: INR 1.3 (0.9-1.1)
--- NOTE | 2017-11-29 12:38 | Diagnostic Imaging Report ---
EXAM: XR Chest, 2 Views CLINICAL HISTORY: COPD TECHNIQUE: Frontal and lateral views of the chest. COMPARISON: Chest x-ray 11/27/18 345 FINDINGS: Lungs: Bilateral vascular and interstitial prominence, similar to slightly worsened. Right lung base atelectasis and airspace disease. Pleural space: Continued small to moderate right pleural effusion. Tiny left pleural effusion. No pneumothorax. Heart: Unremarkable. No cardiomegaly. Mediastinum: Unremarkable. Bones/joints: Degenerative changes of the spine. IMPRESSION: 1. Continued small to moderate right pleural effusion. Tiny left pleural effusion. 2. Bilateral vascular and interstitial prominence, similar to slightly worsened. Right lung base atelectasis and airspace disease.
--- NOTE | 2017-11-29 13:33 | Cardiology Report ---
APPROVED REPORT EKG Measurement Heart [id number] Sinus tachycardia with premature atrial complexes Anteroseptal infarct, age undetermined Abnormal ECG
--- NOTE | 2017-11-29 14:09 | General Progress Note ---
Assessment/Plan Status: not improved, unchanged Assessment/Plan # Metastatic colon cancer. Getting triple combination chemotherapy, intermittent development of small right-sided pleural effusion. The patient has required thoracentesis in the past. --> Continue to closely monitor the patient's fluid status. # Anemia due to underlying chronic disease. --> Anemia w/u reviewed, will trend daily --> Hgb goal >7 # Pulmonary embolism on CT, on anticoagulation on Coumadin. # Thrombocytopenia, likely due to recently administered chemotherapy. # Coagulopathy, likely due to underlying liver disease. The time the note was entered does not necessarily correspond to the time the patient was seen. Subjective Date patient seen: Nov 29, 2017 ROS Limited/Unobtainable: Yes Gastrointestinal/Abdominal: Reports: poor fluid intake Hematologic/Lymphatic: Reports: anemia Allergies: Coded Allergies: BRITTANI INHIBITORS (Unverified Allergy, Unknown, 03/19/15) All Systems: reviewed and negative except above Subjective No acute events. BP remains elevated, on clonidine. CXR reviewed. Objective Last 24 Hour Vital Signs Date Time Temp Pulse Resp B/P (MAP) Pulse Ox O2 Delivery O2 Flow Rate FiO2 11/29/17 12:00 107 11/29/17 11:52 97.7 104 20 164/108 (126) 98 97.7 11/29/17 11:10 92 16 100 Nasal Cannula 2.0 28 11/29/17 11:03 101 20 97 Nasal Cannula 2.0 28 11/29/17 09:15 92 155/102 11/29/17 09:00 Nasal Cannula 3.0 11/29/17 08:00 98.0 92 20 155/102 (119) 99 98.0 11/29/17 08:00 103 11/29/17 07:39 84 16 100 Nasal Cannula 2.0 28 11/29/17 07:31 87 16 100 Nasal Cannula 2.0 28 11/29/17 04:03 102 162/97 11/29/17 04:00 110 11/29/17 04:00 97.4 105 23 162/106 (124) 99 97.4 11/29/17 03:33 102 20 98 Nasal Cannula 2.0 28 11/29/17 03:20 105 20 98 Nasal Cannula 2.0 28 11/29/17 00:00 97.5 97 22 162/97 (118) 99 97.5 11/29/17 00:00 94 11/28/17 23:58 106 20 96 Nasal Cannula 2.0 28 11/28/17 23:43 100 20 100 Nasal Cannula 2.0 28 11/28/17 21:00 Nasal Cannula 3.0 11/28/17 20:27 110 20 96 Nasal Cannula 2.0 28 11/28/17 20:16 98 20 98 Nasal Cannula 2.0 28 11/28/17 20:00 97.9 108 21 181/102 (128) 97 97.9 11/28/17 20:00 99 11/28/17 19:56 168/91 11/28/17 16:38 97.8 97 16 168/91 (116) 98 97.8 11/28/17 16:00 94 11/28/17 15:00 99 20 99 Nasal Cannula 3.0 32 11/28/17 15:00 96 20 95 Nasal Cannula 3.0 32 Intake and Output 11/28/17 11/29/17 19:00 07:00 Intake Total 1600 ml Balance 1600 ml Intake Oral 1600 ml # Voids 7 3 # Bowel Movements 1 Laboratory Tests 11/29/17 10:05: Prothrombin Time 13.1H, Prothromb Time International Ratio 1.3H Height (Feet): 5 Height (Inches): 8.00 Weight (Pounds): 135 General Appearance: no apparent distress EENT: PERRL/EOMI Neck: normal alignment Cardiovascular: tachycardia Respiratory/Chest: normal breath sounds, no respiratory distress Abdomen: tender Anurag Salguero MD Nov 29, 2017 14:09
[2017-11-29 14:33] LABS: HEMATOCRIT 32.7 % (42.0-52.0); HEMOGLOBIN 10.5 G/DL (14.2-18.0); MEAN CORPUSCULAR VOLUME 100 FL (80-99); PLATELET COUNT 120 K/UL (150-450); RED BLOOD COUNT 3.27 M/UL (4.70-6.10); RED CELL DISTRIBUTION WIDTH 18.8 % (11.6-14.8); WHITE BLOOD COUNT 7.4 K/UL (4.8-10.8)
[2017-11-29 14:39] LABS: ANION GAP 8 mmol/L (5-15); BLOOD UREA NITROGEN 34 mg/dL (7-18); CALCIUM 8.6 MG/DL (8.5-10.1); CARBON DIOXIDE 25 MMOL/L (21-32); CHLORIDE 107 MMOL/L (98-107); CREATININE 1.4 MG/DL (0.55-1.30); POTASSIUM 4.1 MMOL/L (3.5-5.1); SODIUM 140 MMOL/L (136-145)
[2017-11-29] MEDS ORDERED: Zolpidem 5mg tab ORAL PRN (21:00)
[2017-11-30] VITALS (7 sets, daily range): BP systolic 108–180; BP diastolic 87–117
[2017-11-30] MEDS: Albuterol/Ipratropium 3ml neb HHN SCH ×6 (03:34→23:37)
[2017-11-30] MEDS: Cefepime HCl 1 GM in D5W 55 ML IVPB SCH (05:00)
[2017-11-30] MEDS: GlipiZIDE 5mg tab ORAL SCH ×2 (06:20→16:28)
[2017-11-30] MEDS: NovoLOG Insulin Flexpen SUBQ SCH ×4 (06:20→21:00)
[2017-11-30] MEDS: guaiFENesin w/Codeine 5ml Liq ud ORAL PRN (06:20)
[2017-11-30] MEDS: Norco 5mg/325mg tab ORAL PRN ×2 (06:20→16:28)
[2017-11-30 07:40] LABS: INR 1.4 (0.9-1.1)
--- NOTE | 2017-11-30 08:13 | Pulmonology Progress Note ---
Assessment/Plan Assessment/Plan IMPRESSION: 1. Chronic obstructive pulmonary disease with acute exacerbation. 2. Shortness of breath. 3. Respiratory insufficiency. pleural effusions 4. Possible underlying infection. 5. History of lung cancer. 6. Evidence of hypoxemia. 7. pleural effusion- worse 8. possible pulmonary edema RECOMMENDATIONS: 1. IV Solu-Medrol.- bid 2. Antibiotics IV empiric. 3. Respiratory treatments. 4. pain management and cough medications as is 5.monitor arterial blood gas. 6. Followup x-ray and proceed with tap 7. lasix x 1 and monitor impression, plan, and exam edited and reviewed in detail care discussed with RN Subjective Allergies: Coded Allergies: BRITTANI INHIBITORS (Unverified Allergy, Unknown, 03/19/15) Subjective has pain has cough which is dry persistent sob Objective Last 24 Hour Vital Signs Date Time Temp Pulse Resp B/P (MAP) Pulse Ox O2 Delivery O2 Flow Rate FiO2 11/30/17 06:35 102 180/117 11/30/17 06:26 180/117 (138) 11/30/17 04:00 97.3 165/110 (128) 97.3 11/30/17 04:00 102 11/30/17 03:35 92 20 96 Nasal Cannula 2.0 28 11/30/17 03:34 90 20 95 Nasal Cannula 2.0 28 11/30/17 00:00 97.4 93 21 145/90 (108) 97 97.4 11/29/17 23:40 94 20 98 Nasal Cannula 2.0 28 11/29/17 23:00 92 20 97 Nasal Cannula 2.0 28 11/29/17 22:50 100 160/102 (121) 11/29/17 21:00 Nasal Cannula 3.0 11/29/17 20:48 104 182/119 11/29/17 20:00 97.5 104 40 182/119 (140) 97 97.5 11/29/17 20:00 90 11/29/17 19:35 96 20 99 Nasal Cannula 2.0 28 11/29/17 19:33 95 20 98 Nasal Cannula 2.0 28 11/29/17 16:44 91 16 97 Nasal Cannula 2.0 28 11/29/17 16:08 93 20 97 Nasal Cannula 2.0 28 11/29/17 16:00 94 11/29/17 15:58 97.7 97 20 158/104 (122) 95 97.7 11/29/17 12:00 107 11/29/17 11:52 97.7 104 20 164/108 (126) 98 97.7 11/29/17 11:10 92 16 100 Nasal Cannula 2.0 28 11/29/17 11:03 101 20 97 Nasal Cannula 2.0 28 11/29/17 09:15 92 155/102 11/29/17 09:00 Nasal Cannula 3.0 Intake and Output 11/29/17 11/30/17 19:00 07:00 Intake Total 420 ml Balance 420 ml Intake Oral 420 ml # Voids 3 5 # Bowel Movements 1 Objective WDWN NAD reduced breath sounds R>L bilaterally with scattered wheeze [id number] without MRG NABS nontender no HSM no CCE nonfocal Laboratory Tests 11/29/17 10:05: White Blood Count 7.4, Red Blood Count 3.27L, Hemoglobin 10.5L, Hematocrit 32.7L , Mean Corpuscular Volume 100H, Mean Corpuscular Hemoglobin 32.1H, Mean Corpuscular Hemoglobin Concent 32.1, Red Cell Distribution Width 18.8H, Platelet Count 120L, Mean Platelet Volume 9.1, Neutrophils (%) (Auto) , Lymphocytes (%) (Auto) , Monocytes (%) (Auto) , Eosinophils (%) (Auto) , Basophils (%) (Auto) , Differential Total Cells Counted 100, Neutrophils % ( Manual) 94H, Lymphocytes % (Manual) 5L, Monocytes % (Manual) 1, Eosinophils % ( Manual) 0, Basophils % (Manual) 0, Band Neutrophils 0, Platelet Estimate DecreasedL, Platelet Morphology Normal, Hypochromasia 1+, Anisocytosis 1+, Macrocytosis 1+, Prothrombin Time 13.1H, Prothromb Time International Ratio 1.3H , Sodium Level 140, Potassium Level 4.1, Chloride Level 107, Carbon Dioxide Level 25, Anion Gap 8, Blood Urea Nitrogen 34H, Creatinine 1.4H, Estimat Glomerular Filtration Rate > 60, Glucose Level 71L, Calcium Level 8.6 11/30/17 05:55: Prothrombin Time 14.1H, Prothromb Time International Ratio 1.4H Current Medications Medications (Trade) Dose Ordered Sig/Allen Route PRN Reason Start Time Stop Time Status Last Admin Dose Admin Acetaminophen/ Hydrocodone Bitart ([place] 5/325) 1 tab Q4H PRN ORAL Moderate Pain (Pain Scale 4-6) 11/27/17 14:16 12/04/17 14:15 11/30/17 06:20 Albuterol/ Ipratropium (Albuterol/ Ipratropium) 3 ml Q4HRT HHN 11/27/17 15:00 12/02/17 14:59 11/30/17 03:34 Cefepime HCl 1 gm/ Dextrose 55 ml @ 110 mls/hr Q24H IVPB 11/28/17 05:00 12/05/17 04:59 11/30/17 05:00 Dextrose (Dextrose 50%) 25 ml STAT PRN IV Hypoglycemia 11/27/17 17:30 12/27/17 17:29 Dextrose (Dextrose 50%) 50 ml STAT PRN IV Hypoglycemia 11/27/17 17:30 12/27/17 17:29 Glipizide (Glucotrol) 5 mg BIAC ORAL 11/29/17 06:30 12/29/17 06:29 11/30/17 06:20 Guaifenesin/ Codeine Phosphate (Robitussin with codeine) 5 ml Q6H PRN ORAL For Cough 11/28/17 09:30 12/28/17 08:59 11/30/17 06:20 Guaifenesin/ Dextromethorphan (Robitussin DM Syrup) 10 ml Q8H PRN ORAL For Cough 11/28/17 09:30 12/28/17 04:29 11/29/17 10:06 Insulin Aspart (NovoLOG) BEFORE MEALS AND HS SUBQ 11/27/17 21:00 12/27/17 20:59 11/28/17 16:57 Labetalol HCl (Normodyne) 500 mg Q12HR ORAL 11/29/17 09:00 12/29/17 08:59 11/30/17 06:35 Methylprednisolone Sodium Succinate (Solu-MEDROL) 40 mg BID IVP 11/29/17 09:00 12/28/17 09:29 11/29/17 17:21 Nifedipine (Procardia XL) 60 mg DAILY ORAL 11/30/17 09:00 12/30/17 08:59 Salmeterol Xinafoate/ Fluticasone (Advair 250/50 Diskus) 1 puffs BID INH 11/27/17 12:00 12/27/17 11:59 11/29/17 19:37 Warfarin Sodium (Coumadin per pharmacy) 1 ea DAILY PRN MISC Per rx protocol 11/29/17 08:00 12/29/17 07:59 Warfarin Sodium (Coumadin) 10 mg DAILY ORAL 11/29/17 09:00 12/04/17 08:59 11/29/17 10:11 Zolpidem Tartrate (Ambien) 5 mg HSPRN PRN ORAL Insomnia 11/29/17 21:00 12/06/17 20:59 11/29/17 20:48 Albino Otero MD Nov 30, 2017 08:13
[2017-11-30 08:34] LABS: HEMATOCRIT 32.2 % (42.0-52.0); HEMOGLOBIN 10.7 G/DL (14.2-18.0); MEAN CORPUSCULAR VOLUME 99 FL (80-99); PLATELET COUNT 104 K/UL (150-450); RED BLOOD COUNT 3.24 M/UL (4.70-6.10); RED CELL DISTRIBUTION WIDTH 18.7 % (11.6-14.8); WHITE BLOOD COUNT 8.3 K/UL (4.8-10.8)
[2017-11-30 08:38] LABS: ANION GAP 12 mmol/L (5-15); BLOOD UREA NITROGEN 38 mg/dL (7-18); CALCIUM 8.5 MG/DL (8.5-10.1); CARBON DIOXIDE 24 MMOL/L (21-32); CHLORIDE 104 MMOL/L (98-107); CREATININE 1.6 MG/DL (0.55-1.30); POTASSIUM 4.5 MMOL/L (3.5-5.1); SODIUM 140 MMOL/L (136-145)
[2017-11-30] MEDS: Solu-MEDROL 40mg Inj IVP SCH ×2 (09:19→18:37)
[2017-11-30] MEDS: Advair 250/50 Inhaler - 14 dose INH SCH ×2 (10:01→19:18)
--- NOTE | 2017-11-30 12:29 | General Progress Note ---
Assessment/Plan Status: not improved, unchanged Assessment/Plan # Metastatic colon cancer. Getting triple combination chemotherapy, intermittent development of small right-sided pleural effusion. The patient has required thoracentesis in the past. --> Continue to closely monitor the patient's fluid status. # Anemia due to underlying chronic disease. --> Anemia w/u reviewed, will trend daily --> Hgb goal >7 # Pulmonary embolism on CT, on anticoagulation on Coumadin. # Thrombocytopenia, likely due to recently administered chemotherapy. # Coagulopathy, likely due to underlying liver disease. The time the note was entered does not necessarily correspond to the time the patient was seen. Subjective Date patient seen: Nov 30, 2017 Gastrointestinal/Abdominal: Reports: abdominal pain Hematologic/Lymphatic: Reports: anemia Allergies: Coded Allergies: BRITTANI INHIBITORS (Unverified Allergy, Unknown, 03/19/15) All Systems: reviewed and negative except above Subjective No acute events. US thoracentesis pending. New order of Procardia 50 mg daily for hid high BP. Objective Last 24 Hour Vital Signs Date Time Temp Pulse Resp B/P (MAP) Pulse Ox O2 Delivery O2 Flow Rate FiO2 11/30/17 10:10 90 18 100 Room Air 21 11/30/17 10:08 98 20 99 Room Air 21 11/30/17 10:08 Room Air 21 11/30/17 10:01 98 20 97 Room Air 21 11/30/17 09:19 99 167/101 11/30/17 09:00 Nasal Cannula 3.0 11/30/17 08:00 97.7 99 20 167/101 (123) 93 97.7 11/30/17 07:50 107 11/30/17 06:35 102 180/117 11/30/17 06:26 180/117 (138) 11/30/17 04:00 97.3 165/110 (128) 97.3 11/30/17 04:00 102 11/30/17 03:35 92 20 96 Nasal Cannula 2.0 11/30/17 03:34 90 20 95 Nasal Cannula 2.0 28 11/30/17 00:00 97.4 93 21 145/90 (108) 97 97.4 11/29/17 23:40 94 20 98 Nasal Cannula 2.0 28 11/29/17 23:00 92 20 97 Nasal Cannula 2.0 11/29/17 22:50 100 160/102 (121) 11/29/17 21:00 Nasal Cannula 3.0 11/29/17 20:48 104 182/119 11/29/17 20:00 97.5 104 40 182/119 (140) 97 97.5 11/29/17 20:00 90 11/29/17 19:35 96 20 99 Nasal Cannula 2.0 28 11/29/17 19:33 95 20 98 Nasal Cannula 2.0 28 11/29/17 16:44 91 16 97 Nasal Cannula 2.0 28 11/29/17 16:08 93 20 97 Nasal Cannula 2.0 28 11/29/17 16:00 94 11/29/17 15:58 97.7 97 20 158/104 (122) 95 97.7 Intake and Output 11/29/17 11/30/17 19:00 07:00 Intake Total 420 ml Balance 420 ml Intake Oral 420 ml # Voids 3 5 # Bowel Movements 1 Laboratory Tests 11/30/17 05:55: White Blood Count 8.3, Red Blood Count 3.24L, Hemoglobin 10.7L, Hematocrit 32.2L , Mean Corpuscular Volume 99, Mean Corpuscular Hemoglobin 33.1H, Mean Corpuscular Hemoglobin Concent 33.3, Red Cell Distribution Width 18.7H, Platelet Count 104L, Mean Platelet Volume 9.3, Neutrophils (%) (Auto) , Lymphocytes (%) (Auto) , Monocytes (%) (Auto) , Eosinophils (%) (Auto) , Basophils (%) (Auto) , Differential Total Cells Counted 100, Neutrophils % ( Manual) 94H, Lymphocytes % (Manual) 4L, Monocytes % (Manual) 2, Eosinophils % ( Manual) 0, Basophils % (Manual) 0, Band Neutrophils 0, Platelet Estimate DecreasedL, Platelet Morphology Normal, Anisocytosis 1+, Prothrombin Time 14.1H , Prothromb Time International Ratio 1.4H, Sodium Level 140, Potassium Level 4.5 , Chloride Level 104, Carbon Dioxide Level 24, Anion Gap 12, Blood Urea Nitrogen 38H, Creatinine 1.6H, Estimat Glomerular Filtration Rate 52.5, Glucose Level 86, Calcium Level 8.5 Height (Feet): 5 Height (Inches): 8.00 Weight (Pounds): 135 General Appearance: no apparent distress EENT: PERRL/EOMI Neck: non-tender, normal alignment Cardiovascular: regularly irregular Respiratory/Chest: no respiratory distress Abdomen: soft, tender Anurag Salguero MD Nov 30, 2017 12:29
[2017-11-30] MEDS ORDERED: Minoxidil 2.5mg tab ORAL SCH (15:45)
[2017-11-30] MEDS ORDERED: Warfarin Sodium 7.5mg ORAL SCH (17:00)
[2017-11-30] MEDS ORDERED: Warfarin Sodium 10mg ORAL SCH (17:00)
[2017-11-30] MEDS: Minoxidil 2.5mg tab ORAL SCH (21:07)
[2017-11-30] MEDS: Guaifenesin/DM 10ml syrup ORAL PRN (21:15)
[2017-12-01] MEDS: Albuterol/Ipratropium 3ml neb HHN SCH ×6 (03:00→23:00)
[2017-12-01 04:00] VITALS: BP 152/83
[2017-12-01] MEDS: Cefepime HCl 1 GM in D5W 55 ML IVPB SCH (05:35)
[2017-12-01] MEDS: GlipiZIDE 5mg tab ORAL SCH ×2 (06:26→16:30)
[2017-12-01] MEDS: NovoLOG Insulin Flexpen SUBQ SCH ×4 (06:30→21:00)
[2017-12-01] MEDS: Guaifenesin/DM 10ml syrup ORAL PRN (06:31)
[2017-12-01 08:00] VITALS: BP 136/70
[2017-12-01] MEDS: Solu-MEDROL 40mg Inj IVP SCH ×2 (08:11→17:27)
[2017-12-01 08:12] LABS: INR 1.6 (0.9-1.1)
[2017-12-01] MEDS: Minoxidil 2.5mg tab ORAL SCH ×2 (08:12→21:05)
[2017-12-01] MEDS: Norco 5mg/325mg tab ORAL PRN ×2 (08:14→17:37)
--- NOTE | 2017-12-01 09:10 | Pulmonology Progress Note ---
Assessment/Plan Assessment/Plan IMPRESSION: 1. Chronic obstructive pulmonary disease with acute exacerbation. 2. Shortness of breath. 3. Respiratory insufficiency. pleural effusions 4. Possible underlying infection. 5. History of lung cancer. 6. Evidence of hypoxemia. 7. pleural effusion- worse 8. possible pulmonary edema RECOMMENDATIONS: 1. IV Solu-Medrol.- may reduce dosing 2. Antibiotics IV empiric. 3. Respiratory treatments. 4. pain management and cough medications as is 5.monitor arterial blood gas. 6. Followup x-ray and proceed with tap today 7. lasix x 1 and monitor impression, plan, and exam edited and reviewed in detail care discussed with RN Subjective Allergies: Coded Allergies: BRITTANI INHIBITORS (Unverified Allergy, Unknown, 03/19/15) Subjective improved some cough and sob Objective Last 24 Hour Vital Signs Date Time Temp Pulse Resp B/P (MAP) Pulse Ox O2 Delivery O2 Flow Rate FiO2 12/01/17 08:12 136/70 12/01/17 08:12 94 136/70 12/01/17 08:11 94 136/70 12/01/17 08:00 97.4 94 20 136/70 (92) 99 97.4 12/01/17 07:59 73 16 99 Nasal Cannula 2.0 28 12/01/17 07:50 68 16 99 Nasal Cannula 3.0 32 12/01/17 06:00 96 12/01/17 04:00 98.0 97 20 152/83 (106) 100 98.0 12/01/17 03:23 84 20 97 Nasal Cannula 2.0 28 12/01/17 03:23 84 20 97 Nasal Cannula 2.0 28 12/01/17 00:00 100 11/30/17 23:48 60 18 99 Nasal Cannula 2.0 28 11/30/17 23:38 90 22 84 Room Air 21 11/30/17 21:07 148/91 11/30/17 21:07 110 148/91 11/30/17 21:00 Nasal Cannula 3.0 11/30/17 20:00 102 11/30/17 20:00 97.7 93 20 108/87 (94) 96 97.7 11/30/17 19:28 62 18 95 Room Air 21 11/30/17 19:18 60 20 94 Room Air 21 11/30/17 16:28 152/101 11/30/17 16:00 98.0 93 20 152/101 (118) 97 98.0 11/30/17 15:45 95 11/30/17 15:25 87 20 100 Room Air 21 11/30/17 15:16 93 20 97 Room Air 21 11/30/17 12:00 96.9 89 18 163/99 (120) 98 96.9 11/30/17 11:50 107 11/30/17 10:10 90 18 100 Room Air 11/30/17 10:08 98 20 99 Room Air 21 11/30/17 10:08 Room Air 21 11/30/17 10:01 98 20 97 Room Air 21 11/30/17 09:19 99 167/101 11/30/17 09:00 Nasal Cannula 3.0 Intake and Output 11/30/17 12/01/17 19:00 07:00 Intake Total 840 ml 300 ml Output Total 1600 ml Balance -760 ml 300 ml Intake Oral 840 ml 300 ml Output Urine Total 1600 ml # Voids 3 # Bowel Movements 1 Objective WDWN NAD reduced breath sounds R>L bilaterally with scattered wheeze [id number] without MRG NABS nontender no HSM no CCE nonfocal Laboratory Tests 12/01/17 06:50: Prothrombin Time 16.7H, Prothromb Time International Ratio 1.6H Current Medications Medications (Trade) Dose Ordered Sig/Allen Route PRN Reason Start Time Stop Time Status Last Admin Dose Admin Acetaminophen/ Hydrocodone Bitart ([place] 5/325) 1 tab Q4H PRN ORAL Moderate Pain (Pain Scale 4-6) 11/27/17 14:16 12/04/17 14:15 12/01/17 08:14 Albuterol/ Ipratropium (Albuterol/ Ipratropium) 3 ml Q4HRT HHN 11/27/17 15:00 12/02/17 14:59 12/01/17 07:53 Cefepime HCl 1 gm/ Dextrose 55 ml @ 110 mls/hr Q24H IVPB 11/28/17 05:00 12/05/17 04:59 12/01/17 05:35 Dextrose (Dextrose 50%) 25 ml STAT PRN IV Hypoglycemia 11/27/17 17:30 12/27/17 17:29 Dextrose (Dextrose 50%) 50 ml STAT PRN IV Hypoglycemia 11/27/17 17:30 8/12/18 17:29 Glipizide (Glucotrol) 5 mg BIAC ORAL 11/29/17 06:30 12/29/17 06:29 12/01/17 06:26 Guaifenesin/ Codeine Phosphate (Robitussin with codeine) 5 ml Q6H PRN ORAL For Cough 11/28/17 09:30 12/28/17 08:59 11/30/17 06:20 Guaifenesin/ Dextromethorphan (Robitussin DM Syrup) 10 ml Q8H PRN ORAL For Cough 11/28/17 09:30 12/28/17 04:29 12/01/17 06:31 Insulin Aspart (NovoLOG) BEFORE MEALS AND HS SUBQ 11/27/17 21:00 12/27/17 20:59 11/28/17 16:57 Labetalol HCl (Normodyne) 500 mg Q12HR ORAL 11/29/17 09:00 12/29/17 08:59 12/01/17 08:11 Methylprednisolone Sodium Succinate (Solu-MEDROL) 40 mg BID IVP 11/29/17 09:00 12/28/17 09:29 12/01/17 08:11 Minoxidil (Loniten) 2.5 mg Q12HR ORAL 11/30/17 21:00 12/30/17 20:59 12/01/17 08:12 Nifedipine (Procardia XL) 90 mg DAILY ORAL 12/01/17 09:00 12/02/17 08:59 12/01/17 08:12 Salmeterol Xinafoate/ Fluticasone (Advair 250/50 Diskus) 1 puffs BID INH 11/27/17 12:00 12/27/17 11:59 11/30/17 19:18 Warfarin Sodium (Coumadin per pharmacy) 1 ea DAILY PRN MISC Per rx protocol 11/29/17 08:00 12/29/17 07:59 Zolpidem Tartrate (Ambien) 5 mg HSPRN PRN ORAL Insomnia 11/29/17 21:00 12/06/17 20:59 11/29/17 20:48 Albino Otero MD Dec 01, 2017 09:10
[2017-12-01] MEDS: Advair 250/50 Inhaler - 14 dose INH SCH ×2 (09:16→20:41)
[2017-12-01 12:00] VITALS: BP 135/88
--- NOTE | 2017-12-01 13:55 | General Progress Note ---
Assessment/Plan Assessment/Plan COPD Exacerbation - Bronchdilators, add steroids Pneumonia - on IV Abx h/o Pe on Warfarin Malign. HTN. Finally BP under Control with new combination of meds Subjective Allergies: Coded Allergies: BRITTANI INHIBITORS (Unverified Allergy, Unknown, 03/19/15) Subjective Still SOB + Non productive cough Objective Last 24 Hour Vital Signs Date Time Temp Pulse Resp B/P (MAP) Pulse Ox O2 Delivery O2 Flow Rate FiO2 12/01/17 11:38 79 16 99 Nasal Cannula 2.0 28 12/01/17 11:27 73 16 99 Nasal Cannula 2.0 28 12/01/17 09:00 Nasal Cannula 3.0 12/01/17 08:12 136/70 12/01/17 08:12 94 136/70 12/01/17 08:11 94 136/70 12/01/17 08:00 97.4 94 20 136/70 (92) 99 97.4 12/01/17 07:59 73 16 99 Nasal Cannula 2.0 28 12/01/17 07:50 68 16 99 Nasal Cannula 3.0 32 12/01/17 06:00 96 12/01/17 04:00 98.0 97 20 152/83 (106) 100 98.0 12/01/17 03:23 84 20 97 Nasal Cannula 2.0 28 12/01/17 03:23 84 20 97 Nasal Cannula 2.0 28 12/01/17 00:00 100 11/30/17 23:48 60 18 99 Nasal Cannula 2.0 28 11/30/17 23:38 90 22 84 Room Air 21 11/30/17 21:07 148/91 11/30/17 21:07 110 148/91 11/30/17 21:00 Nasal Cannula 3.0 11/30/17 20:00 102 11/30/17 20:00 97.7 93 20 108/87 (94) 96 97.7 11/30/17 19:28 62 18 95 Room Air 21 11/30/17 19:18 60 20 94 Room Air 21 11/30/17 16:28 152/101 11/30/17 16:00 98.0 93 20 152/101 (118) 97 98.0 11/30/17 15:45 95 11/30/17 15:25 87 20 100 Room Air 21 11/30/17 15:16 93 20 97 Room Air 21 Intake and Output 11/30/17 12/01/17 19:00 07:00 Intake Total 840 ml 300 ml Output Total 1600 ml Balance -760 ml 300 ml Intake Oral 840 ml 300 ml Output Urine Total 1600 ml # Voids 3 # Bowel Movements 1 Laboratory Tests 12/01/17 06:50: Prothrombin Time 16.7H, Prothromb Time International Ratio 1.6H Height (Feet): 5 Height (Inches): 8.00 Weight (Pounds): 135 Objective Cv RR Lungs B wheezes + ronchi Abd SNT. BS + E No CCE Harsh Maher MD Dec 01, 2017 13:55
--- NOTE | 2017-12-01 15:31 | General Progress Note ---
Assessment/Plan Status: unchanged Assessment/Plan # Metastatic colon cancer. Getting triple combination chemotherapy, intermittent development of small right-sided pleural effusion. The patient has required thoracentesis in the past. --> Continue to closely monitor the patient's fluid status. # Anemia due to underlying chronic disease. --> Anemia w/u reviewed, will trend daily --> Hgb goal >7 # Pulmonary embolism on CT, on anticoagulation on Coumadin. # Thrombocytopenia, likely due to recently administered chemotherapy. # Coagulopathy, likely due to underlying liver disease. The time the note was entered does not necessarily correspond to the time the patient was seen. Subjective Date patient seen: Dec 01, 2017 ROS Limited/Unobtainable: Yes Hematologic/Lymphatic: Reports: anemia Allergies: Coded Allergies: BRITTANI INHIBITORS (Unverified Allergy, Unknown, 03/19/15) All Systems: reviewed and negative except above Subjective No acute events. Thoracentesis pending. Vitals are stable. Objective Last 24 Hour Vital Signs Date Time Temp Pulse Resp B/P (MAP) Pulse Ox O2 Delivery O2 Flow Rate FiO2 12/01/17 11:38 79 16 99 Nasal Cannula 2.0 12/01/17 11:27 73 16 99 Nasal Cannula 2.0 28 12/01/17 09:00 Nasal Cannula 3.0 12/01/17 08:12 136/70 12/01/17 08:12 94 136/70 12/01/17 08:11 94 136/70 12/01/17 08:00 97.4 94 20 136/70 (92) 99 97.4 12/01/17 07:59 73 16 99 Nasal Cannula 2.0 12/01/17 07:50 68 16 99 Nasal Cannula 3.0 32 12/01/17 06:00 96 12/01/17 04:00 98.0 97 20 152/83 (106) 100 98.0 12/01/17 03:23 84 20 97 Nasal Cannula 2.0 12/01/17 03:23 84 20 97 Nasal Cannula 2.0 12/01/17 00:00 100 11/30/17 23:48 60 18 99 Nasal Cannula 2.0 11/30/17 23:38 90 22 84 Room Air 21 11/30/17 21:07 148/91 11/30/17 21:07 110 148/91 11/30/17 21:00 Nasal Cannula 3.0 11/30/17 20:00 102 11/30/17 20:00 97.7 93 20 108/87 (94) 96 97.7 11/30/17 19:28 62 18 95 Room Air 21 11/30/17 19:18 60 20 94 Room Air 21 11/30/17 16:28 152/101 11/30/17 16:00 98.0 93 20 152/101 (118) 97 98.0 11/30/17 15:45 95 Intake and Output 11/30/17 12/01/17 18:59 06:59 Intake Total 840 ml 300 ml Output Total 1600 ml Balance -760 ml 300 ml Intake Oral 840 ml 300 ml Output Urine Total 1600 ml # Voids 3 # Bowel Movements 1 Laboratory Tests 12/01/17 06:50: Prothrombin Time 16.7H, Prothromb Time International Ratio 1.6H Height (Feet): 5 Height (Inches): 8.00 Weight (Pounds): 135 General Appearance: no apparent distress EENT: PERRL/EOMI Neck: normal alignment Cardiovascular: normal peripheral pulses Respiratory/Chest: no respiratory distress Abdomen: no organomegaly Anurag Salguero MD Dec 01, 2017 15:31
--- NOTE | 2017-12-01 15:40 | Consultation ---
History of Present Illness General Date patient seen: Dec 01, 2017 Chief Complaint: Dyspnea/Respdistress Present Illness HPI 67-year-old male, with hx of chronic obstructive pulmonary disease exacerbation and pleural effusion. the pt stated that he is anxious not eating nor sleeping. Allergies: Coded Allergies: BRITTANI INHIBITORS (Unverified Allergy, Unknown, 03/19/15) Medication History Scheduled Aspirin Ec* (Aspirin Ec*), 81 MG ORAL DAILY Atorvastatin Calcium* (Lipitor*), 80 MG ORAL BEDTIME, (Reported) Carvedilol* (Carvedilol*), 12.5 MG ORAL EVERY 12 HOURS, (Reported) Fluticasone/Salmeterol (Advair 250-50 Diskus), 1 PUFF INH EVERY 12 HOURS, ( Reported) Pantoprazole* (Pantoprazole*), 40 MG ORAL DAILY, (Reported) Tamsulosin Hcl (Tamsulosin Hcl*), 0.4 MG ORAL BEDTIME, (Reported) Scheduled PRN Hydrocodone Bit/Acetaminophen 10-325* ([place] 10-325*), 1 TAB ORAL Q4H PRN for For Pain, (Reported) Nitroglycerin (Nitrostat), 0.4 MG SL ONCE PRN for CHEST PAIN, (Reported) Discontinued Medications Allopurinol* (Allopurinol*), 100 MG ORAL BID, (Reported) Discontinued Reason: MD discontinued med Cholecalciferol (Vitamin D3)* (Vitamin D*), 1,000 UNIT ORAL DAILY, (Reported) Discontinued Reason: MD discontinued med Clonidine Hcl* (Catapres*), 0.2 MG ORAL THREE TIMES A DAY, (Reported) Discontinued Reason: MD discontinued med Diphenhydramine Hcl* (Diphenhydramine Hcl*), 25 MG ORAL BEDTIME, (Reported) Discontinued Reason: MD discontinued med Fluticasone/Salmeterol (Advair 250-50 Diskus), 1 PUFF INH EVERY 12 HOURS, ( Reported) Discontinued Reason: MD discontinued med Glipizide* (Glipizide*), 5 MG ORAL BIDAC, (Reported) Discontinued Reason: MD discontinued med Hydralazine Hcl* (Hydralazine Hcl*), 100 MG ORAL EVERY 8 HOURS, (Reported) Discontinued Reason: MD discontinued med Hydrochlorothiazide* (Hydrochlorothiazide*), 25 MG ORAL DAILY, (Reported) Discontinued Reason: MD discontinued med Ticagrelor* (Brilinta*), 90 MG PO BID, (Reported) Discontinued Reason: discontinued med Warfarin Sod* (Coumadin*), 1 MG ORAL @pippa johnson sat, sun, (Reported) Discontinued Reason: MD discontinued med Warfarin Sod* (Warfarin Sod*), 10 MG ORAL DAILY, (Reported) Discontinued Reason: MD discontinued med Patient History Limited by: medical condition History Provided By: Patient, Medical Record, PMD Healthcare decision maker Resuscitation status Advanced Directive on File No Past Medical/Surgical History Past Medical/Surgical History: (1) Hypoxia (2) Anemia (3) CKD (chronic kidney disease) (4) COPD exacerbation (5) Lung cancer (6) Pneumonia (7) Dyspnea (8) Shortness of breath (9) ACS (acute coronary syndrome) Review of Systems Psychiatric: Reports: anxiety, depressed feelings, emotional problems Physical Exam General Appearance: no apparent distress, alert, agitated Neurologic: depressed affect Last 24 Hour Vital Signs Date Time Temp Pulse Resp B/P (MAP) Pulse Ox O2 Delivery O2 Flow Rate FiO2 12/01/17 11:38 79 16 99 Nasal Cannula 2.0 28 12/01/17 11:27 73 16 99 Nasal Cannula 2.0 28 12/01/17 09:00 Nasal Cannula 3.0 12/01/17 08:12 136/70 12/01/17 08:12 94 136/70 12/01/17 08:11 94 136/70 12/01/17 08:00 97.4 94 20 136/70 (92) 99 97.4 12/01/17 07:59 73 16 99 Nasal Cannula 2.0 28 12/01/17 07:50 68 16 99 Nasal Cannula 3.0 32 12/01/17 06:00 96 12/01/17 04:00 98.0 97 20 152/83 (106) 100 98.0 12/01/17 03:23 84 20 97 Nasal Cannula 2.0 28 12/01/17 03:23 84 20 97 Nasal Cannula 2.0 28 12/01/17 00:00 100 11/30/17 23:48 60 18 99 Nasal Cannula 2.0 28 11/30/17 23:38 90 22 84 Room Air 21 11/30/17 21:07 148/91 11/30/17 21:07 110 148/91 11/30/17 21:00 Nasal Cannula 3.0 11/30/17 20:00 102 11/30/17 20:00 97.7 93 20 108/87 (94) 96 97.7 11/30/17 19:28 62 18 95 Room Air 21 11/30/17 19:18 60 20 94 Room Air 21 11/30/17 16:28 152/101 11/30/17 16:00 98.0 93 20 152/101 (118) 97 98.0 11/30/17 15:45 95 Intake and Output 11/30/17 12/01/17 19:00 07:00 Intake Total 840 ml 300 ml Output Total 1600 ml Balance -760 ml 300 ml Intake Oral 840 ml 300 ml Output Urine Total 1600 ml # Voids 3 # Bowel Movements 1 Laboratory Tests Test 12/01/17 06:50 Prothrombin Time 16.7 SEC (9.30-11.50) H Prothromb Time International Ratio 1.6 (0.9-1.1) H Height (Feet): 5 Height (Inches): 8.00 Weight (Pounds): 135 Medications Current Medications Medications (Trade) Dose Ordered Sig/Allen Route PRN Reason Start Time Stop Time Status Last Admin Dose Admin Acetaminophen/ Hydrocodone Bitart ([place] 5/325) 1 tab Q4H PRN ORAL Moderate Pain (Pain Scale 4-6) 11/27/17 14:16 12/04/17 14:15 12/01/17 08:14 Albuterol/ Ipratropium (Albuterol/ Ipratropium) 3 ml Q4HRT HHN 11/27/17 15:00 12/02/17 14:59 12/01/17 11:28 Cefepime HCl 1 gm/ Dextrose 55 ml @ 110 mls/hr Q24H IVPB 11/28/17 05:00 12/05/17 04:59 12/01/17 05:35 Dextrose (Dextrose 50%) 25 ml STAT PRN IV Hypoglycemia 11/27/17 17:30 12/27/17 17:29 Dextrose (Dextrose 50%) 50 ml STAT PRN IV Hypoglycemia 11/27/17 17:30 12/27/17 17:29 Glipizide (Glucotrol) 5 mg BIAC ORAL 11/29/17 06:30 12/29/17 06:29 12/01/17 06:26 Guaifenesin/ Codeine Phosphate (Robitussin with codeine) 5 ml Q6H PRN ORAL For Cough 11/28/17 09:30 12/28/17 08:59 11/30/17 06:20 Guaifenesin/ Dextromethorphan (Robitussin DM Syrup) 10 ml Q8H PRN ORAL For Cough 11/28/17 09:30 12/28/17 04:29 12/01/17 06:31 Insulin Aspart (NovoLOG) BEFORE MEALS AND HS SUBQ 11/27/17 21:00 12/27/17 20:59 11/28/17 16:57 Labetalol HCl (Normodyne) 500 mg Q12HR ORAL 11/29/17 09:00 12/29/17 08:59 12/01/17 08:11 Methylprednisolone Sodium Succinate (Solu-MEDROL) 40 mg BID IVP 11/29/17 09:00 12/28/17 09:29 12/01/17 08:11 Minoxidil (Loniten) 2.5 mg Q12HR ORAL 11/30/17 21:00 12/30/17 20:59 12/01/17 08:12 Nifedipine (Procardia XL) 90 mg DAILY ORAL 12/01/17 09:00 12/02/17 08:59 12/01/17 08:12 Salmeterol Xinafoate/ Fluticasone (Advair 250/50 Diskus) 1 puffs BID INH 11/27/17 12:00 12/27/17 11:59 12/01/17 09:16 Warfarin Sodium (Coumadin per pharmacy) 1 ea DAILY PRN MISC Per rx protocol 11/29/17 08:00 12/29/17 07:59 Zolpidem Tartrate (Ambien) 5 mg HSPRN PRN ORAL Insomnia 11/29/17 21:00 12/06/17 20:59 11/29/17 20:48 Assessment/Plan Assessment/Plan mdd anxiety -remeron 15mg qhs -provided /Kai Vela MD Dec 01, 2017 15:39
[2017-12-01 16:00] VITALS: BP 136/79
[2017-12-01] MEDS ORDERED: Warfarin Sodium 7.5mg ORAL SCH (17:00)
[2017-12-01 19:31] VITALS: BP 121/72
[2017-12-01] MEDS: guaiFENesin w/Codeine 5ml Liq ud ORAL PRN (21:05)
[2017-12-02 00:03] VITALS: BP 92/54
[2017-12-02] MEDS: Albuterol/Ipratropium 3ml neb HHN SCH ×4 (02:56→14:37)
[2017-12-02 04:00] VITALS: BP 102/58
[2017-12-02] MEDS: GlipiZIDE 5mg tab ORAL SCH ×2 (05:48→16:30)
[2017-12-02] MEDS: Cefepime HCl 1 GM in D5W 55 ML IVPB SCH (05:48)
[2017-12-02] MEDS: NovoLOG Insulin Flexpen SUBQ SCH ×4 (05:48→20:52)
[2017-12-02 08:00] VITALS: BP 108/62
[2017-12-02] MEDS: Solu-MEDROL 40mg Inj IVP SCH ×2 (08:11→17:35)
[2017-12-02] MEDS: Norco 5mg/325mg tab ORAL PRN ×2 (08:11→17:35)
[2017-12-02] MEDS: Minoxidil 2.5mg tab ORAL SCH ×2 (08:12→20:52)
[2017-12-02 08:19] LABS: INR 1.9 (0.9-1.1)
[2017-12-02 08:32] LABS: HEMATOCRIT 30.4 % (42.0-52.0); HEMOGLOBIN 10.3 G/DL (14.2-18.0); MEAN CORPUSCULAR VOLUME 99 FL (80-99); PLATELET COUNT 73 K/UL (150-450); RED BLOOD COUNT 3.08 M/UL (4.70-6.10); RED CELL DISTRIBUTION WIDTH 18.2 % (11.6-14.8); WHITE BLOOD COUNT 3.6 K/UL (4.8-10.8)
[2017-12-02] MEDS: Advair 250/50 Inhaler - 14 dose INH SCH ×2 (08:36→19:52)
--- NOTE | 2017-12-02 08:42 | General Progress Note ---
Assessment/Plan Status: stable Assessment/Plan # Metastatic lung cancer. Getting triple combination chemotherapy, intermittent development of small right-sided pleural effusion. The patient has required thoracentesis in the past. --> Continue to closely monitor the patient's fluid status. --> thora for 12/03 when inr is better # Anemia due to underlying chronic disease. --> Anemia w/u reviewed, will trend daily --> Hgb goal >7 # Pulmonary embolism on CT, on anticoagulation on Coumadin. --> hold off coumadin until thora completed # Thrombocytopenia, likely due to recently administered chemotherapy. # Coagulopathy, likely due to underlying liver disease. The time the note was entered does not necessarily correspond to the time the patient was seen. Subjective Date patient seen: Dec 02, 2017 ROS Limited/Unobtainable: Yes Hematologic/Lymphatic: Reports: anemia Allergies: Coded Allergies: BRITTANI INHIBITORS (Unverified Allergy, Unknown, 03/19/15) All Systems: reviewed and negative except above Subjective No acute events. Vitals are stable. Warfarin and CBC ordered. Objective Last 24 Hour Vital Signs Date Time Temp Pulse Resp B/P (MAP) Pulse Ox O2 Delivery O2 Flow Rate FiO2 12/02/17 08:12 108/62 12/02/17 08:11 87 108/62 12/02/17 08:00 97.3 92 20 108/62 (77) 96 97.3 87 12/02/17 07:17 Nasal Cannula 2.0 12/02/17 07:17 99 Nasal Cannula 2.0 12/02/17 07:12 104 16 97 Nasal Cannula 2.0 12/02/17 07:02 101 14 92 Room Air 21 12/02/17 04:00 88 12/02/17 04:00 97.9 87 20 102/58 (73) 93 97.9 87 12/02/17 03:48 94 22 Nasal Cannula 3.0 32 12/02/17 02:56 Nasal Cannula 2.0 12/02/17 02:55 Nasal Cannula 2.0 12/02/17 00:03 98.2 92 20 92/54 (67) 92 98.2 92 12/02/17 00:00 93 12/01/17 23:40 Nasal Cannula 2.0 12/01/17 23:40 Nasal Cannula 2.0 12/01/17 21:05 121/72 7/17/18 21:05 88 121/72 12/01/17 21:00 Nasal Cannula 3.0 12/01/17 20:47 88 16 100 Nasal Cannula 2.0 28 12/01/17 20:41 91 16 99 Nasal Cannula 2.0 28 12/01/17 20:00 94 12/01/17 19:31 96.1 97 20 121/72 (88) 93 96.1 97 12/01/17 16:00 97.0 87 20 136/79 (98) 99 97.0 12/01/17 16:00 92 12/01/17 15:30 Nasal Cannula 12/01/17 15:30 Nasal Cannula 12/01/17 12:00 93 12/01/17 12:00 96.8 87 20 135/88 (104) 96 96.8 12/01/17 11:38 79 16 99 Nasal Cannula 2.0 28 12/01/17 11:27 73 16 99 Nasal Cannula 2.0 28 12/01/17 09:00 Nasal Cannula 3.0 Intake and Output 12/01/17 12/02/17 19:00 07:00 Intake Total 465 ml Output Total 850 ml Balance -385 ml Intake Oral 465 ml Output Urine Total 850 ml # Voids 1 4 # Bowel Movements 1 Laboratory Tests 12/02/17 06:15: White Blood Count 3.6L, Red Blood Count 3.08L, Hemoglobin 10.3L, Hematocrit 30.4L, Mean Corpuscular Volume 99, Mean Corpuscular Hemoglobin 33.3H, Mean Corpuscular Hemoglobin Concent 33.7, Red Cell Distribution Width 18.2H, Platelet Count 73L, Mean Platelet Volume 9.4, Neutrophils (%) (Auto) , Lymphocytes (%) (Auto) , Monocytes (%) (Auto) , Eosinophils (%) (Auto) , Basophils (%) (Auto) , Neutrophils % (Manual) [Pending], Lymphocytes % (Manual) [Pending], Platelet Estimate [Pending], Platelet Morphology [Pending], Prothrombin Time 19.0H, Prothromb Time International Ratio 1.9H Height (Feet): 5 Height (Inches): 8.00 Weight (Pounds): 134 General Appearance: no apparent distress, alert EENT: PERRL/EOMI Neck: non-tender, normal alignment Cardiovascular: normal peripheral pulses Respiratory/Chest: normal breath sounds, no respiratory distress Abdomen: normal bowel sounds, tender Anurag Salguero MD Dec 02, 2017 08:42
[2017-12-02] MEDS ORDERED: Phytonadione 10 mg/mL 1ml amp SUBQ SCH (09:00)
[2017-12-02 12:00] VITALS: BP 123/73
[2017-12-02 16:00] VITALS: BP 102/62
--- NOTE | 2017-12-02 16:15 | General Progress Note ---
Assessment/Plan Assessment/Plan COPD Exacerbation - Bronchdilators, add steroids Pneumonia - on IV Abx h/o Pe on Warfarin Malign. HTN. Finally BP under Control with new combination of meds Subjective Allergies: Coded Allergies: BRITTANI INHIBITORS (Unverified Allergy, Unknown, 03/19/15) Subjective Still SOB + Non productive cough Objective Last 24 Hour Vital Signs Date Time Temp Pulse Resp B/P (MAP) Pulse Ox O2 Delivery O2 Flow Rate FiO2 12/02/17 14:47 84 16 97 Room Air 21 12/02/17 14:37 82 18 93 Room Air 21 12/02/17 12:00 97 12/02/17 12:00 98.0 98 20 123/73 (90) 96 98.0 87 12/02/17 10:48 94 18 98 Nasal Cannula 2.0 28 12/02/17 10:33 92 16 96 Nasal Cannula 2.0 28 12/02/17 09:00 Nasal Cannula 3.0 12/02/17 09:00 91 12/02/17 08:12 108/62 12/02/17 08:11 87 108/62 12/02/17 08:00 97.3 92 20 108/62 (77) 96 97.3 87 12/02/17 07:17 Nasal Cannula 2.0 28 12/02/17 07:17 99 Nasal Cannula 2.0 28 12/02/17 07:12 104 16 97 Nasal Cannula 2.0 12/02/17 07:02 101 14 92 Room Air 12/02/17 04:00 88 12/02/17 04:00 97.9 87 20 102/58 (73) 93 97.9 87 12/02/17 03:48 94 22 Nasal Cannula 3.0 32 12/02/17 02:56 Nasal Cannula 2.0 28 12/02/17 02:55 Nasal Cannula 2.0 12/02/17 00:03 98.2 92 20 92/54 (67) 92 98.2 92 12/02/17 00:00 93 12/01/17 23:40 Nasal Cannula 2.0 28 12/01/17 23:40 Nasal Cannula 2.0 28 12/01/17 21:05 121/72 12/01/17 21:05 88 121/72 12/01/17 21:00 Nasal Cannula 3.0 12/01/17 20:47 88 16 100 Nasal Cannula 2.0 28 12/01/17 20:41 91 16 99 Nasal Cannula 2.0 28 12/01/17 20:00 94 12/01/17 19:31 96.1 97 20 121/72 (88) 93 96.1 97 Intake and Output 12/01/17 12/02/17 19:00 07:00 Intake Total 465 ml Output Total 850 ml Balance -385 ml Intake Oral 465 ml Output Urine Total 850 ml # Voids 1 4 # Bowel Movements 1 Laboratory Tests 12/02/17 06:15: White Blood Count 3.6L, Red Blood Count 3.08L, Hemoglobin 10.3L, Hematocrit 30.4L, Mean Corpuscular Volume 99, Mean Corpuscular Hemoglobin 33.3H, Mean Corpuscular Hemoglobin Concent 33.7, Red Cell Distribution Width 18.2H, Platelet Count 73L, Mean Platelet Volume 9.4, Neutrophils (%) (Auto) , Lymphocytes (%) (Auto) , Monocytes (%) (Auto) , Eosinophils (%) (Auto) , Basophils (%) (Auto) , Differential Total Cells Counted 100, Neutrophils % ( Manual) 87H, Lymphocytes % (Manual) 12L, Monocytes % (Manual) 0L, Eosinophils % (Manual) 0, Basophils % (Manual) 0, Band Neutrophils 1, Platelet Estimate DecreasedL, Platelet Morphology Normal, Hypochromasia 1+, Anisocytosis 1+, Macrocytosis 1+, Prothrombin Time 19.0H, Prothromb Time International Ratio 1.9H Height (Feet): 5 Height (Inches): 8.00 Weight (Pounds): 134 Objective Cv RR Lungs B wheezes + ronhermila Napier SNT. BS + E No CCE Harsh Maher MD Dec 02, 2017 16:15
[2017-12-02 20:00] VITALS: BP 138/90
--- NOTE | 2017-12-02 23:10 | Pulmonology Progress Note ---
Assessment/Plan Assessment/Plan Assessment/Plan IMPRESSION: 1. Chronic obstructive pulmonary disease with acute exacerbation. 2. Shortness of breath. 3. Respiratory insufficiency. pleural effusions, awaiting thoracentesis 4. Possible underlying infection. 5. History of lung cancer. 6. Evidence of hypoxemia. 7. pleural effusion- worse 8. possible pulmonary edema RECOMMENDATIONS: 1. IV Solu-Medrol.- may reduce dosing 2. Antibiotics IV empiric. 3. Respiratory treatments. 4. pain management and cough medications as is 5.monitor arterial blood gas. 6. Followup x-ray and proceed with tap today 7. lasix x 1 and monitor impression, plan, and exam edited and reviewed in detail care discussed with RN Subjective Allergies: Coded Allergies: BRITTANI INHIBITORS (Unverified Allergy, Unknown, 03/19/15) Subjective improved some cough and sob Objective Last 24 Hour Vital Signs Date Time Temp Pulse Resp B/P (MAP) Pulse Ox O2 Delivery O2 Flow Rate FiO2 12/01/17 08:12 136/70 12/01/17 08:12 94 136/70 12/01/17 08:11 94 136/70 12/01/17 08:00 97.4 94 20 136/70 (92) 99 97.4 12/01/17 07:59 73 16 99 Nasal Cannula 2.0 28 12/01/17 07:50 68 16 99 Nasal Cannula 3.0 32 12/01/17 06:00 96 12/01/17 04:00 98.0 97 20 152/83 (106) 100 98.0 12/01/17 03:23 84 20 97 Nasal Cannula 2.0 28 12/01/17 03:23 84 20 97 Nasal Cannula 2.0 28 12/01/17 00:00 100 11/30/17 23:48 60 18 99 Nasal Cannula 2.0 28 11/30/17 23:38 90 22 84 Room Air 21 11/30/17 21:07 148/91 11/30/17 21:07 110 148/91 11/30/17 21:00 Nasal Cannula 3.0 11/30/17 20:00 102 11/30/17 20:00 97.7 93 20 108/87 (94) 96 97.7 11/30/17 19:28 62 18 95 Room Air 21 11/30/17 19:18 60 20 94 Room Air 21 11/30/17 16:28 152/101 11/30/17 16:00 98.0 93 20 152/101 (118) 97 98.0 11/30/17 15:45 95 11/30/17 15:25 87 20 100 Room Air 21 11/30/17 15:16 93 20 97 Room Air 21 11/30/17 12:00 96.9 89 18 163/99 (120) 98 96.9 11/30/17 11:50 107 11/30/17 10:10 90 18 100 Room Air 21 11/30/17 10:08 98 20 99 Room Air 21 11/30/17 10:08 Room Air 21 11/30/17 10:01 98 20 97 Room Air 11/30/17 09:19 99 167/101 11/30/17 09:00 Nasal Cannula 3.0 Intake and Output 11/30/17 12/01/17 19:00 07:00 Intake Total 840 ml 300 ml Output Total 1600 ml Balance -760 ml 300 ml Intake Oral 840 ml 300 ml Output Urine Total 1600 ml # Voids 3 # Bowel Movements 1 Objective WDWN NAD reduced breath sounds R>L bilaterally with scattered wheeze [id number] without MRG NABS nontender no HSM no CCE nonfocal Laboratory Tests 12/01/17 06:50: Prothrombin Time 16.7H, Prothromb Time International Ratio 1.6H Current Medications Medications (Trade) Dose Ordered Sig/Allen Route PRN Reason Start Time Stop Time Status Last Admin Dose Admin Acetaminophen/ Hydrocodone Bitart ([place] 5/325) 1 tab Q4H PRN ORAL Moderate Pain (Pain Scale 4-6) 11/27/17 14:16 12/04/17 14:15 12/01/17 08:14 Albuterol/ Ipratropium (Albuterol/ Ipratropium) 3 ml Q4HRT HHN 11/27/17 15:00 12/02/17 14:59 12/01/17 07:53 Cefepime HCl 1 gm/ Dextrose 55 ml @ 110 mls/hr Q24H IVPB 11/28/17 05:00 12/05/17 04:59 12/01/17 05:35 Dextrose (Dextrose 50%) 25 ml STAT PRN IV Hypoglycemia 11/27/17 17:30 12/27/17 17:29 Dextrose (Dextrose 50%) 50 ml STAT PRN IV Hypoglycemia 11/27/17 17:30 12/27/17 17:29 Glipizide (Glucotrol) 5 mg BIAC ORAL 11/29/17 06:30 12/29/17 06:29 12/01/17 06:26 Guaifenesin/ Codeine Phosphate (Robitussin with codeine) 5 ml Q6H PRN ORAL For Cough 11/28/17 09:30 12/28/17 08:59 11/30/17 06:20 Guaifenesin/ Dextromethorphan (Robitussin DM Syrup) 10 ml Q8H PRN ORAL For Cough 11/28/17 09:30 12/28/17 04:29 12/01/17 06:31 Insulin Aspart (NovoLOG) BEFORE MEALS AND HS SUBQ 11/27/17 21:00 12/27/17 20:59 11/28/17 16:57 Labetalol HCl (Normodyne) 500 mg Q12HR ORAL 11/29/17 09:00 12/29/17 08:59 12/01/17 08:11 Methylprednisolone Sodium Succinate (Solu-MEDROL) 40 mg BID IVP 11/29/17 09:00 12/28/17 09:29 12/01/17 08:11 Minoxidil (Loniten) 2.5 mg Q12HR ORAL 11/30/17 21:00 12/30/17 20:59 12/01/17 08:12 Nifedipine (Procardia XL) 90 mg DAILY ORAL 12/01/17 09:00 12/02/17 08:59 12/01/17 08:12 Salmeterol Xinafoate/ Fluticasone (Advair 250/50 Diskus) 1 puffs BID INH 11/27/17 12:00 12/27/17 11:59 11/30/17 19:18 Warfarin Sodium (Coumadin per pharmacy) 1 ea DAILY PRN MISC Per rx protocol 11/29/17 08:00 12/29/17 07:59 Zolpidem Tartrate (Ambien) 5 mg HSPRN PRN ORAL Insomnia 11/29/17 21:00 12/06/17 20:59 11/29/17 20:48 Subjective ROS Limited/Unobtainable: No Allergies: Coded Allergies: BRITTANI INHIBITORS (Unverified Allergy, Unknown, 03/19/15) Objective Last 24 Hour Vital Signs Date Time Temp Pulse Resp B/P (MAP) Pulse Ox O2 Delivery O2 Flow Rate FiO2 12/02/17 21:00 Nasal Cannula 3.0 12/02/17 20:52 102/62 12/02/17 20:52 96 102/62 12/02/17 20:00 98.1 60 20 138/90 (106) 95 98.1 12/02/17 20:00 95 12/02/17 19:52 97 Room Air 21 12/02/17 19:52 96 18 Room Air 21 12/02/17 19:52 Room Air 12/02/17 16:00 101 12/02/17 16:00 97.9 85 20 102/62 (75) 96 97.9 12/02/17 14:47 84 16 97 Room Air 21 12/02/17 14:37 82 18 93 Room Air 21 12/02/17 12:00 97 12/02/17 12:00 98.0 98 20 123/73 (90) 96 98.0 87 12/02/17 10:48 94 18 98 Nasal Cannula 2.0 28 12/02/17 10:33 92 16 96 Nasal Cannula 2.0 28 12/02/17 09:00 Nasal Cannula 3.0 12/02/17 09:00 91 12/02/17 08:12 108/62 12/02/17 08:11 87 108/62 12/02/17 08:00 97.3 92 20 108/62 (77) 96 97.3 87 12/02/17 07:17 Nasal Cannula 2.0 28 12/02/17 07:17 99 Nasal Cannula 2.0 12/02/17 07:12 104 16 97 Nasal Cannula 2.0 12/02/17 07:02 101 14 92 Room Air 21 12/02/17 04:00 88 12/02/17 04:00 97.9 87 20 102/58 (73) 93 97.9 87 12/02/17 03:48 94 22 Nasal Cannula 3.0 32 12/02/17 02:56 Nasal Cannula 2.0 28 12/02/17 02:55 Nasal Cannula 2.0 12/02/17 00:03 98.2 92 20 92/54 (67) 92 98.2 92 12/02/17 00:00 93 12/01/17 23:40 Nasal Cannula 2.0 28 12/01/17 23:40 Nasal Cannula 2.0 28 Intake and Output 12/01/17 12/02/17 19:00 07:00 Intake Total 465 ml Output Total 850 ml Balance -385 ml Intake Oral 465 ml Output Urine Total 850 ml # Voids 1 4 # Bowel Movements 1 Laboratory Tests 12/02/17 06:15: White Blood Count 3.6L, Red Blood Count 3.08L, Hemoglobin 10.3L, Hematocrit 30.4L, Mean Corpuscular Volume 99, Mean Corpuscular Hemoglobin 33.3H, Mean Corpuscular Hemoglobin Concent 33.7, Red Cell Distribution Width 18.2H, Platelet Count 73L, Mean Platelet Volume 9.4, Neutrophils (%) (Auto) , Lymphocytes (%) (Auto) , Monocytes (%) (Auto) , Eosinophils (%) (Auto) , Basophils (%) (Auto) , Differential Total Cells Counted 100, Neutrophils % ( Manual) 87H, Lymphocytes % (Manual) 12L, Monocytes % (Manual) 0L, Eosinophils % (Manual) 0, Basophils % (Manual) 0, Band Neutrophils 1, Platelet Estimate DecreasedL, Platelet Morphology Normal, Hypochromasia 1+, Anisocytosis 1+, Macrocytosis 1+, Prothrombin Time 19.0H, Prothromb Time International Ratio 1.9H Current Medications Medications (Trade) Dose Ordered Sig/Allen Route PRN Reason Start Time Stop Time Status Last Admin Dose Admin Acetaminophen/ Hydrocodone Bitart ([place] 5/325) 1 tab Q4H PRN ORAL Moderate Pain (Pain Scale 4-6) 11/27/17 14:16 12/04/17 14:15 12/02/17 17:35 Cefepime HCl 1 gm/ Dextrose 55 ml @ 110 mls/hr Q24H IVPB 11/28/17 05:00 12/05/17 04:59 12/02/17 05:48 Dextrose (Dextrose 50%) 25 ml STAT PRN IV Hypoglycemia 11/27/17 17:30 12/27/17 17:29 Dextrose (Dextrose 50%) 50 ml STAT PRN IV Hypoglycemia 11/27/17 17:30 12/27/17 17:29 Glipizide (Glucotrol) 5 mg BIAC ORAL 11/29/17 06:30 12/29/17 06:29 12/02/17 05:48 Guaifenesin/ Codeine Phosphate (Robitussin with codeine) 5 ml Q6H PRN ORAL For Cough 11/28/17 09:30 12/28/17 08:59 12/01/17 21:05 Guaifenesin/ Dextromethorphan (Robitussin DM Syrup) 10 ml Q8H PRN ORAL For Cough 11/28/17 09:30 12/28/17 04:29 12/01/17 06:31 Insulin Aspart (NovoLOG) BEFORE MEALS AND HS SUBQ 11/27/17 21:00 12/27/17 20:59 11/28/17 16:57 Labetalol HCl (Normodyne) 500 mg Q12HR ORAL 11/29/17 09:00 12/29/17 08:59 12/02/17 20:52 Methylprednisolone Sodium Succinate (Solu-MEDROL) 40 mg BID IVP 11/29/17 09:00 12/28/17 09:29 12/02/17 17:35 Minoxidil (Loniten) 2.5 mg Q12HR ORAL 11/30/17 21:00 12/30/17 20:59 12/02/17 20:52 Mirtazapine (Remeron) 15 mg BEDTIME ORAL 12/01/17 21:00 12/31/17 20:59 12/02/17 20:52 Salmeterol Xinafoate/ Fluticasone (Advair 250/50 Diskus) 1 puffs BID INH 11/27/17 12:00 12/27/17 11:59 12/02/17 08:36 Zolpidem Tartrate (Ambien) 5 mg HSPRN PRN ORAL Insomnia 11/29/17 21:00 12/06/17 20:59 11/29/17 20:48 Moe Hand MD Dec 02, 2017 23:10
[2017-12-03] VITALS: BP 126/76
[2017-12-03 04:00] VITALS: BP 121/88
[2017-12-03] MEDS: GlipiZIDE 5mg tab ORAL SCH ×2 (05:54→16:30)
[2017-12-03] MEDS: Cefepime HCl 1 GM in D5W 55 ML IVPB SCH (05:55)
[2017-12-03] MEDS: NovoLOG Insulin Flexpen SUBQ SCH ×4 (05:55→21:00)
--- NOTE | 2017-12-03 07:59 | Pulmonology Progress Note ---
Assessment/Plan Assessment/Plan IMPRESSION: 1. Chronic obstructive pulmonary disease with acute exacerbation. 2. Shortness of breath. 3. Respiratory insufficiency. pleural effusions 4. Possible underlying infection. 5. History of lung cancer. 6. Evidence of hypoxemia. 7. pleural effusion- worse 8. possible pulmonary edema RECOMMENDATIONS: 1. IV Solu-Medrol.- taper 2. Antibiotics IV empiric. 3. Respiratory treatments. 4. pain management and cough medications as is 5.monitor arterial blood gas. 6. monitor imaging and need for tap; never done impression, plan, and exam edited and reviewed in detail care discussed with RN Subjective Allergies: Coded Allergies: BRITTANI INHIBITORS (Unverified Allergy, Unknown, 03/19/15) Subjective overall care noted and reviewed no distress Objective Last 24 Hour Vital Signs Date Time Temp Pulse Resp B/P (MAP) Pulse Ox O2 Delivery O2 Flow Rate FiO2 12/03/17 04:00 102 12/03/17 04:00 97.3 86 19 121/88 (99) 100 97.3 12/03/17 00:00 88 12/03/17 00:00 97.7 87 16 126/76 (93) 99 97.7 12/02/17 21:00 Nasal Cannula 3.0 12/02/17 20:52 102/62 12/02/17 20:52 96 102/62 12/02/17 20:00 98.1 60 20 138/90 (106) 95 98.1 12/02/17 20:00 95 12/02/17 19:52 97 Room Air 21 12/02/17 19:52 96 18 Room Air 21 12/02/17 19:52 Room Air 12/02/17 16:00 101 12/02/17 16:00 97.9 85 20 102/62 (75) 96 97.9 12/02/17 14:47 84 16 97 Room Air 21 12/02/17 14:37 82 18 93 Room Air 21 12/02/17 12:00 97 12/02/17 12:00 98.0 98 20 123/73 (90) 96 98.0 87 12/02/17 10:48 94 18 98 Nasal Cannula 2.0 28 12/02/17 10:33 92 16 96 Nasal Cannula 2.0 28 12/02/17 09:00 Nasal Cannula 3.0 12/02/17 09:00 91 12/02/17 08:12 108/62 12/02/17 08:11 87 108/62 12/02/17 08:00 97.3 92 20 108/62 (77) 96 97.3 87 Intake and Output 12/02/17 12/03/17 19:00 07:00 Intake Total 360 ml 300 ml Output Total 600 ml Balance -240 ml 300 ml Intake Oral 360 ml 300 ml Output Urine Total 600 ml # Voids 2 Objective WDWN NAD reduced breath sounds overall bilaterally with minimal wheeze [id number] without MRG NABS nontender no HSM no CCE nonfocal Current Medications Medications (Trade) Dose Ordered Sig/Allen Route PRN Reason Start Time Stop Time Status Last Admin Dose Admin Acetaminophen/ Hydrocodone Bitart ([place] 5/325) 1 tab Q4H PRN ORAL Moderate Pain (Pain Scale 4-6) 11/27/17 14:16 12/04/17 14:15 12/02/17 17:35 Cefepime HCl 1 gm/ Dextrose 55 ml @ 110 mls/hr Q24H IVPB 11/28/17 05:00 12/05/17 04:59 12/03/17 05:55 Dextrose (Dextrose 50%) 25 ml STAT PRN IV Hypoglycemia 11/27/17 17:30 12/27/17 17:29 Dextrose (Dextrose 50%) 50 ml STAT PRN IV Hypoglycemia 11/27/17 17:30 12/27/17 17:29 Glipizide (Glucotrol) 5 mg BIAC ORAL 11/29/17 06:30 12/29/17 06:29 12/03/17 05:54 Guaifenesin/ Codeine Phosphate (Robitussin with codeine) 5 ml Q6H PRN ORAL For Cough 11/28/17 09:30 12/28/17 08:59 12/01/17 21:05 Guaifenesin/ Dextromethorphan (Robitussin DM Syrup) 10 ml Q8H PRN ORAL For Cough 11/28/17 09:30 12/28/17 04:29 12/01/17 06:31 Insulin Aspart (NovoLOG) BEFORE MEALS AND HS SUBQ 11/27/17 21:00 12/27/17 20:59 11/28/17 16:57 Labetalol HCl (Normodyne) 500 mg Q12HR ORAL 11/29/17 09:00 12/29/17 08:59 12/02/17 20:52 Methylprednisolone Sodium Succinate (Solu-MEDROL) 40 mg BID IVP 11/29/17 09:00 12/28/17 09:29 12/02/17 17:35 Minoxidil (Loniten) 2.5 mg Q12HR ORAL 11/30/17 21:00 12/30/17 20:59 12/02/17 20:52 Mirtazapine (Remeron) 15 mg BEDTIME ORAL 12/01/17 21:00 12/31/17 20:59 12/02/17 20:52 Salmeterol Xinafoate/ Fluticasone (Advair 250/50 Diskus) 1 puffs BID INH 11/27/17 12:00 12/27/17 11:59 12/02/17 08:36 Zolpidem Tartrate (Ambien) 5 mg HSPRN PRN ORAL Insomnia 11/29/17 21:00 12/06/17 20:59 11/29/17 20:48 Albino Otero MD Dec 03, 2017 07:59
[2017-12-03 08:00] VITALS: BP 150/85
--- NOTE | 2017-12-03 08:13 | General Progress Note ---
Assessment/Plan Assessment/Plan COPD Exacerbation - Bronchdilators, add steroids Pneumonia - on IV Abx h/o PTE on Warfarin Malign. HTN. Finally BP under Control with new combination of meds Awaiting thoracenthesis. Off warfarin. Subjective Allergies: Coded Allergies: BRITTANI INHIBITORS (Unverified Allergy, Unknown, 03/19/15) Subjective Still SOB + Non productive cough Objective Last 24 Hour Vital Signs Date Time Temp Pulse Resp B/P (MAP) Pulse Ox O2 Delivery O2 Flow Rate FiO2 12/03/17 04:00 102 12/03/17 04:00 97.3 86 19 121/88 (99) 100 97.3 12/03/17 00:00 88 12/03/17 00:00 97.7 87 16 126/76 (93) 99 97.7 12/02/17 21:00 Nasal Cannula 3.0 12/02/17 20:52 102/62 12/02/17 20:52 96 102/62 12/02/17 20:00 98.1 60 20 138/90 (106) 95 98.1 12/02/17 20:00 95 12/02/17 19:52 97 Room Air 21 12/02/17 19:52 96 18 Room Air 21 12/02/17 19:52 Room Air 12/02/17 16:00 101 12/02/17 16:00 97.9 85 20 102/62 (75) 96 97.9 12/02/17 14:47 84 16 97 Room Air 21 12/02/17 14:37 82 18 93 Room Air 21 12/02/17 12:00 97 12/02/17 12:00 98.0 98 20 123/73 (90) 96 98.0 87 12/02/17 10:48 94 18 98 Nasal Cannula 2.0 28 12/02/17 10:33 92 16 96 Nasal Cannula 2.0 28 12/02/17 09:00 Nasal Cannula 3.0 12/02/17 09:00 91 Intake and Output 12/02/17 12/03/17 19:00 07:00 Intake Total 360 ml 300 ml Output Total 600 ml Balance -240 ml 300 ml Intake Oral 360 ml 300 ml Output Urine Total 600 ml # Voids 2 Height (Feet): 5 Height (Inches): 8.00 Weight (Pounds): 134 Objective Cv RR Lungs B wheezes + ronchi Abd SNT. BS + E No CCE Harsh Maher MD Dec 03, 2017 08:13
[2017-12-03 08:39] LABS: INR 1.6 (0.9-1.1)
[2017-12-03] MEDS: Advair 250/50 Inhaler - 14 dose INH SCH ×2 (08:41→19:07)
[2017-12-03] MEDS: Solu-MEDROL 40mg Inj IVP SCH ×2 (10:05→18:20)
[2017-12-03] MEDS: Minoxidil 2.5mg tab ORAL SCH ×2 (10:05→21:06)
[2017-12-03] MEDS: Norco 5mg/325mg tab ORAL PRN ×2 (10:16→17:51)
[2017-12-03 12:00] VITALS: BP 149/80
--- NOTE | 2017-12-03 12:16 | General Progress Note ---
Assessment/Plan Status: stable Assessment/Plan mdd anxiety -remeron 15mg qhs -provided ro/st Subjective Date patient seen: Dec 03, 2017 Neurologic/Psychiatric: Reports: anxiety, depressed, emotional problems Allergies: Coded Allergies: BRITTANI INHIBITORS (Unverified Allergy, Unknown, 03/19/15) Subjective thoracentesis was not done yesterday and the pt was given Coumadin Objective Last 24 Hour Vital Signs Date Time Temp Pulse Resp B/P (MAP) Pulse Ox O2 Delivery O2 Flow Rate FiO2 12/03/17 11:15 97.3 12/03/17 10:16 97.3 12/03/17 10:06 91 121/88 12/03/17 10:05 121/88 12/03/17 09:00 Nasal Cannula 3.0 12/03/17 08:42 Room Air 21 12/03/17 08:42 91 18 Room Air 21 12/03/17 08:42 97 Room Air 21 12/03/17 08:00 98.5 97 20 150/85 (106) 98 98.5 12/03/17 04:00 102 12/03/17 04:00 97.3 86 19 121/88 (99) 100 97.3 12/03/17 00:00 88 12/03/17 00:00 97.7 87 16 126/76 (93) 99 97.7 12/02/17 21:00 Nasal Cannula 3.0 12/02/17 20:52 102/62 12/02/17 20:52 96 102/62 12/02/17 20:00 98.1 60 20 138/90 (106) 95 98.1 12/02/17 20:00 95 12/02/17 19:52 97 Room Air 21 12/02/17 19:52 96 18 Room Air 21 12/02/17 19:52 Room Air 12/02/17 16:00 101 12/02/17 16:00 97.9 85 20 102/62 (75) 96 97.9 12/02/17 14:47 84 16 97 Room Air 21 12/02/17 14:37 82 18 93 Room Air 21 Intake and Output 12/02/17 12/03/17 19:00 07:00 Intake Total 360 ml 300 ml Output Total 600 ml Balance -240 ml 300 ml Intake Oral 360 ml 300 ml Output Urine Total 600 ml # Voids 2 Laboratory Tests 12/03/17 06:30: Prothrombin Time 16.9H, Prothromb Time International Ratio 1.6H Height (Feet): 5 Height (Inches): 8.00 Weight (Pounds): 134 General Appearance: no apparent distress, alert Neurologic: oriented x 3, responsive, depressed affect Kai Norwood MD Dec 03, 2017 12:16
--- NOTE | 2017-12-03 12:17 | Psych Consult Progress Note ---
Psych Consult Progress Note Consult 12/02/17 mdd anxiety -remeron 15mg qhs -provided ro/st Vital Signs Last 24 Hour Vital Signs Date Time Temp Pulse Resp B/P (MAP) Pulse Ox O2 Delivery O2 Flow Rate FiO2 12/03/17 11:15 97.3 12/03/17 10:16 97.3 12/03/17 10:06 91 121/88 12/03/17 10:05 121/88 12/03/17 09:00 Nasal Cannula 3.0 12/03/17 08:42 Room Air 21 12/03/17 08:42 91 18 Room Air 21 12/03/17 08:42 97 Room Air 21 12/03/17 08:00 98.5 97 20 150/85 (106) 98 98.5 12/03/17 04:00 102 12/03/17 04:00 97.3 86 19 121/88 (99) 100 97.3 12/03/17 00:00 88 12/03/17 00:00 97.7 87 16 126/76 (93) 99 97.7 12/02/17 21:00 Nasal Cannula 3.0 12/02/17 20:52 102/62 12/02/17 20:52 96 102/62 12/02/17 20:00 98.1 60 20 138/90 (106) 95 98.1 12/02/17 20:00 95 12/02/17 19:52 97 Room Air 21 12/02/17 19:52 96 18 Room Air 21 12/02/17 19:52 Room Air 12/02/17 16:00 101 12/02/17 16:00 97.9 85 20 102/62 (75) 96 97.9 12/02/17 14:47 84 16 97 Room Air 21 12/02/17 14:37 82 18 93 Room Air 21 Labs Laboratory Tests Test 12/03/17 06:30 Prothrombin Time 16.9 SEC (9.30-11.50) H Prothromb Time International Ratio 1.6 (0.9-1.1) H Medications Current Medications Medications (Trade) Dose Ordered Sig/Allen Route PRN Reason Start Time Stop Time Status Last Admin Dose Admin Acetaminophen/ Hydrocodone Bitart ([place] 5/325) 1 tab Q4H PRN ORAL Moderate Pain (Pain Scale 4-6) 11/27/17 14:16 12/04/17 14:15 12/03/17 10:16 Cefepime HCl 1 gm/ Dextrose 55 ml @ 110 mls/hr Q24H IVPB 11/28/17 05:00 12/05/17 04:59 12/03/17 05:55 Dextrose (Dextrose 50%) 25 ml STAT PRN IV Hypoglycemia 11/27/17 17:30 12/27/17 17:29 Dextrose (Dextrose 50%) 50 ml STAT PRN IV Hypoglycemia 11/27/17 17:30 12/27/17 17:29 Glipizide (Glucotrol) 5 mg BIAC ORAL 11/29/17 06:30 12/29/17 06:29 12/03/17 05:54 Guaifenesin/ Codeine Phosphate (Robitussin with codeine) 5 ml Q6H PRN ORAL For Cough 11/28/17 09:30 12/28/17 08:59 12/01/17 21:05 Guaifenesin/ Dextromethorphan (Robitussin DM Syrup) 10 ml Q8H PRN ORAL For Cough 11/28/17 09:30 12/28/17 04:29 12/01/17 06:31 Insulin Aspart (NovoLOG) BEFORE MEALS AND HS SUBQ 11/27/17 21:00 12/27/17 20:59 11/28/17 16:57 Labetalol HCl (Normodyne) 500 mg Q12HR ORAL 11/29/17 09:00 12/29/17 08:59 12/03/17 10:06 Methylprednisolone Sodium Succinate (Solu-MEDROL) 40 mg BID IVP 11/29/17 09:00 12/28/17 09:29 12/03/17 10:05 Minoxidil (Loniten) 2.5 mg Q12HR ORAL 11/30/17 21:00 12/30/17 20:59 12/03/17 10:05 Mirtazapine (Remeron) 15 mg BEDTIME ORAL 12/01/17 21:00 12/31/17 20:59 12/02/17 20:52 Salmeterol Xinafoate/ Fluticasone (Advair 250/50 Diskus) 1 puffs BID INH 11/27/17 12:00 12/27/17 11:59 12/03/17 08:41 Zolpidem Tartrate (Ambien) 5 mg HSPRN PRN ORAL Insomnia 11/29/17 21:00 12/06/17 20:59 11/29/17 20:48 Kai Norwood MD Dec 03, 2017 12:17
--- NOTE | 2017-12-03 15:58 | General Progress Note ---
Assessment/Plan Status: unchanged Assessment/Plan # Metastatic lung cancer. Getting triple combination chemotherapy, intermittent development of small right-sided pleural effusion. The patient has required thoracentesis in the past. --> Continue to closely monitor the patient's fluid status. --> thora for 12/03 when inr is better # Anemia due to underlying chronic disease. --> Anemia w/u reviewed, will trend daily --> Hgb goal >7 # Pulmonary embolism on CT, on anticoagulation on Coumadin. --> hold off coumadin until thora completed # Thrombocytopenia, likely due to recently administered chemotherapy. # Coagulopathy, likely due to underlying liver disease. The time the note was entered does not necessarily correspond to the time the patient was seen. Subjective Date patient seen: Dec 03, 2017 ROS Limited/Unobtainable: Yes Hematologic/Lymphatic: Reports: anemia Allergies: Coded Allergies: BRITTANI INHIBITORS (Unverified Allergy, Unknown, 03/19/15) All Systems: reviewed and negative except above Subjective No acute events. Vitals are stable. Pt is due for thoracentesis. Objective Last 24 Hour Vital Signs Date Time Temp Pulse Resp B/P (MAP) Pulse Ox O2 Delivery O2 Flow Rate FiO2 12/03/17 12:00 98 12/03/17 11:15 97.3 12/03/17 10:16 97.3 12/03/17 10:06 91 121/88 12/03/17 10:05 121/88 12/03/17 09:00 Nasal Cannula 3.0 12/03/17 08:42 Room Air 21 12/03/17 08:42 91 18 Room Air 21 12/03/17 08:42 97 Room Air 21 12/03/17 08:00 98.5 97 20 150/85 (106) 98 98.5 12/03/17 08:00 99 12/03/17 04:00 102 12/03/17 04:00 97.3 86 19 121/88 (99) 100 97.3 12/03/17 00:00 88 12/03/17 00:00 97.7 87 16 126/76 (93) 99 97.7 12/02/17 21:00 Nasal Cannula 3.0 12/02/17 20:52 102/62 12/02/17 20:52 96 102/62 12/02/17 20:00 98.1 60 20 138/90 (106) 95 98.1 12/02/17 20:00 95 12/02/17 19:52 97 Room Air 21 12/02/17 19:52 96 18 Room Air 21 12/02/17 19:52 Room Air 12/02/17 16:00 101 12/02/17 16:00 97.9 85 20 102/62 (75) 96 97.9 Intake and Output 12/02/17 12/03/17 19:00 07:00 Intake Total 360 ml 300 ml Output Total 600 ml Balance -240 ml 300 ml Intake Oral 360 ml 300 ml Output Urine Total 600 ml # Voids 2 Laboratory Tests 12/03/17 06:30: Prothrombin Time 16.9H, Prothromb Time International Ratio 1.6H Height (Feet): 5 Height (Inches): 8.00 Weight (Pounds): 134 General Appearance: no apparent distress EENT: PERRL/EOMI Neck: normal alignment Cardiovascular: normal peripheral pulses Respiratory/Chest: no respiratory distress Abdomen: normal bowel sounds Anurag Salguero MD Dec 03, 2017 15:58
[2017-12-03 16:00] VITALS: BP 168/89
[2017-12-03 20:00] VITALS: BP 145/79
[2017-12-03] MEDS: guaiFENesin w/Codeine 5ml Liq ud ORAL PRN (21:05)
[2017-12-04] VITALS: BP 129/74
[2017-12-04 04:00] VITALS: BP 150/100
[2017-12-04] MEDS: Cefepime HCl 1 GM in D5W 55 ML IVPB SCH (05:14)
[2017-12-04] MEDS: Norco 5mg/325mg tab ORAL PRN (05:22)
[2017-12-04] MEDS: NovoLOG Insulin Flexpen SUBQ SCH ×4 (06:30→21:00)
[2017-12-04] MEDS: GlipiZIDE 5mg tab ORAL SCH ×2 (06:32→17:17)
--- NOTE | 2017-12-04 07:44 | General Progress Note ---
Assessment/Plan Assessment/Plan COPD Exacerbation - Bronchdilators, add steroids Pneumonia - on IV Abx h/o PTE on Warfarin Malign. HTN. Finally BP under Control with new combination of meds Awaiting thoracenthesis - not enough fluid. Back on warfarin. Subjective Allergies: Coded Allergies: BRITTANI INHIBITORS (Unverified Allergy, Unknown, 03/19/15) Subjective Still SOB + Non productive cough Objective Last 24 Hour Vital Signs Date Time Temp Pulse Resp B/P (MAP) Pulse Ox O2 Delivery O2 Flow Rate FiO2 12/04/17 04:00 98.0 87 20 150/100 (117) 97 98.0 12/04/17 04:00 89 12/04/17 00:00 98.0 93 21 129/74 (92) 97 98.0 12/04/17 00:00 83 12/03/17 21:07 72 145/79 12/03/17 21:06 145/79 12/03/17 21:00 Nasal Cannula 3.0 12/03/17 20:00 98.2 72 21 145/79 (101) 98 98.2 12/03/17 20:00 95 12/03/17 19:08 96 Room Air 21 12/03/17 19:08 Room Air 21 12/03/17 19:07 94 18 Room Air 21 12/03/17 18:50 97.3 12/03/17 17:51 97.3 12/03/17 16:00 95 12/03/17 16:00 98.0 67 19 168/89 (115) 98 98.0 12/03/17 12:00 98 12/03/17 12:00 98.6 84 20 149/80 (103) 98 98.6 12/03/17 10:16 97.3 12/03/17 10:06 91 121/88 12/03/17 10:05 121/88 12/03/17 09:00 Nasal Cannula 3.0 12/03/17 08:42 Room Air 21 12/03/17 08:42 91 18 Room Air 21 12/03/17 08:42 97 Room Air 21 12/03/17 08:00 98.5 97 20 150/85 (106) 98 98.5 12/03/17 08:00 99 Intake and Output 12/03/17 12/04/17 19:00 07:00 Intake Total 420 ml Output Total 400 ml 650 ml Balance 20 ml -650 ml Intake Oral 420 ml Output Urine Total 400 ml 650 ml Laboratory Tests 12/04/17 07:20: Prothrombin Time [Pending], Prothromb Time International Ratio [Pending] Height (Feet): 5 Height (Inches): 8.00 Weight (Pounds): 134 Objective Cv RR Lungs B wheezes + ronchi Abd SNT. BS + E No CCE Harsh Maher MD Dec 04, 2017 07:44
[2017-12-04 07:52] LABS: INR 1.3 (0.9-1.1)
[2017-12-04 08:00] VITALS: BP 143/96
[2017-12-04] MEDS: Advair 250/50 Inhaler - 14 dose INH SCH ×2 (08:55→21:34)
[2017-12-04] MEDS: Solu-MEDROL 40mg Inj IVP SCH (09:04)
[2017-12-04] MEDS: Minoxidil 2.5mg tab ORAL SCH ×2 (09:04→21:36)
--- NOTE | 2017-12-04 09:06 | Pulmonology Progress Note ---
Assessment/Plan Assessment/Plan IMPRESSION: 1. Chronic obstructive pulmonary disease with acute exacerbation. 2. Shortness of breath. 3. Respiratory insufficiency. pleural effusions 4. Possible underlying infection. 5. History of lung cancer. 6. Evidence of hypoxemia. 7. pleural effusion- worse 8. possible pulmonary edema RECOMMENDATIONS: 1. IV Solu-Medrol.- taper to daily 2. Antibiotics IV empiric. 3. Respiratory treatments. 4. pain management and cough medications as is 5.monitor arterial blood gas for change 6. monitor imaging and need for tap; never done impression, plan, and exam edited and reviewed in detail care discussed with RN Subjective Allergies: Coded Allergies: RBITTANI INHIBITORS (Unverified Allergy, Unknown, 03/19/15) Subjective overall care noted and reviewed no distress impressed Objective Last 24 Hour Vital Signs Date Time Temp Pulse Resp B/P (MAP) Pulse Ox O2 Delivery O2 Flow Rate FiO2 12/04/17 08:00 98.2 85 20 143/96 (112) 100 98.2 12/04/17 07:54 Room Air 21 12/04/17 07:54 95 Room Air 21 12/04/17 07:54 93 18 Room Air 21 12/04/17 04:00 98.0 87 20 150/100 (117) 97 98.0 12/04/17 04:00 89 12/04/17 00:00 98.0 93 21 129/74 (92) 97 98.0 12/04/17 00:00 83 12/03/17 21:07 72 145/79 12/03/17 21:06 145/79 12/03/17 21:00 Nasal Cannula 3.0 12/03/17 20:00 98.2 72 21 145/79 (101) 98 98.2 12/03/17 20:00 95 12/03/17 19:08 96 Room Air 21 12/03/17 19:08 Room Air 21 12/03/17 19:07 94 18 Room Air 21 12/03/17 18:50 97.3 12/03/17 17:51 97.3 12/03/17 16:00 95 12/03/17 16:00 98.0 67 19 168/89 (115) 98 98.0 12/03/17 12:00 98 12/03/17 12:00 98.6 84 20 149/80 (103) 98 98.6 12/03/17 10:16 97.3 12/03/17 10:06 91 121/88 12/03/17 10:05 121/88 Intake and Output 12/03/17 12/04/17 19:00 07:00 Intake Total 420 ml Output Total 400 ml 650 ml Balance 20 ml -650 ml Intake Oral 420 ml Output Urine Total 400 ml 650 ml Objective WDWN NAD reduced breath sounds overall bilaterally with minimal wheeze [id number] without MRG NABS nontender no HSM no CCE nonfocal Laboratory Tests 12/04/17 07:20: Prothrombin Time 13.5H, Prothromb Time International Ratio 1.3H Current Medications Medications (Trade) Dose Ordered Sig/Allen Route PRN Reason Start Time Stop Time Status Last Admin Dose Admin Acetaminophen/ Hydrocodone Bitart ([place] 5/325) 1 tab Q4H PRN ORAL Moderate Pain (Pain Scale 4-6) 11/27/17 14:16 12/04/17 14:15 12/04/17 05:22 Cefepime HCl 1 gm/ Dextrose 55 ml @ 110 mls/hr Q24H IVPB 11/28/17 05:00 12/05/17 04:59 12/04/17 05:14 Dextrose (Dextrose 50%) 25 ml STAT PRN IV Hypoglycemia 11/27/17 17:30 12/27/17 17:29 Dextrose (Dextrose 50%) 50 ml STAT PRN IV Hypoglycemia 11/27/17 17:30 12/27/17 17:29 Glipizide (Glucotrol) 5 mg BIAC ORAL 11/29/17 06:30 12/29/17 06:29 12/04/17 06:32 Guaifenesin/ Codeine Phosphate (Robitussin with codeine) 5 ml Q6H PRN ORAL For Cough 11/28/17 09:30 12/28/17 08:59 12/03/17 21:05 Guaifenesin/ Dextromethorphan (Robitussin DM Syrup) 10 ml Q8H PRN ORAL For Cough 11/28/17 09:30 12/28/17 04:29 12/01/17 06:31 Insulin Aspart (NovoLOG) BEFORE MEALS AND HS SUBQ 11/27/17 21:00 12/27/17 20:59 11/28/17 16:57 Labetalol HCl (Normodyne) 500 mg Q12HR ORAL 11/29/17 09:00 12/29/17 08:59 12/03/17 21:07 Methylprednisolone Sodium Succinate (Solu-MEDROL) 40 mg BID IVP 11/29/17 09:00 12/28/17 09:29 12/03/17 18:20 Minoxidil (Loniten) 2.5 mg Q12HR ORAL 11/30/17 21:00 12/30/17 20:59 12/03/17 21:06 Mirtazapine (Remeron) 15 mg BEDTIME ORAL 12/01/17 21:00 12/31/17 20:59 12/03/17 21:05 Salmeterol Xinafoate/ Fluticasone (Advair 250/50 Diskus) 1 puffs BID INH 11/27/17 12:00 12/27/17 11:59 12/04/17 08:55 Warfarin Sodium (Coumadin per pharmacy) 1 ea DAILY PRN MISC Per rx protocol 12/04/17 07:45 01/03/18 07:44 UNV Zolpidem Tartrate (Ambien) 5 mg HSPRN PRN ORAL Insomnia 11/29/17 21:00 12/06/17 20:59 11/29/17 20:48 Albino Otero MD Dec 04, 2017 09:06
[2017-12-04 12:00] VITALS: BP 113/66
--- NOTE | 2017-12-04 13:30 | General Progress Note ---
Assessment/Plan Assessment/Plan mdd anxiety -remeron 15mg qhs -provided ro/st Subjective Date patient seen: Dec 04, 2017 Neurologic/Psychiatric: Reports: anxiety, depressed, emotional problems Allergies: Coded Allergies: BRITTANI INHIBITORS (Unverified Allergy, Unknown, 03/19/15) Subjective thoracentesis was not done yesterday and the pt was given Coumadin Objective Last 24 Hour Vital Signs Date Time Temp Pulse Resp B/P (MAP) Pulse Ox O2 Delivery O2 Flow Rate FiO2 12/04/17 12:00 81 12/04/17 12:00 98.1 84 20 113/66 (82) 100 98.1 12/04/17 09:04 143/96 12/04/17 09:04 85 143/96 12/04/17 09:00 Nasal Cannula 3.0 12/04/17 08:00 84 12/04/17 08:00 98.2 85 20 143/96 (112) 100 98.2 12/04/17 07:54 Room Air 21 12/04/17 07:54 95 Room Air 21 12/04/17 07:54 93 18 Room Air 21 12/04/17 04:00 98.0 87 20 150/100 (117) 97 98.0 12/04/17 04:00 89 12/04/17 00:00 98.0 93 21 129/74 (92) 97 98.0 12/04/17 00:00 83 12/03/17 21:07 72 145/79 12/03/17 21:06 145/79 12/03/17 21:00 Nasal Cannula 3.0 12/03/17 20:00 98.2 72 21 145/79 (101) 98 98.2 12/03/17 20:00 95 12/03/17 19:08 96 Room Air 21 12/03/17 19:08 Room Air 21 12/03/17 19:07 94 18 Room Air 21 12/03/17 18:50 97.3 12/03/17 17:51 97.3 12/03/17 16:00 95 12/03/17 16:00 98.0 67 19 168/89 (115) 98 98.0 Intake and Output 12/03/17 12/04/17 19:00 07:00 Intake Total 420 ml Output Total 400 ml 650 ml Balance 20 ml -650 ml Intake Oral 420 ml Output Urine Total 400 ml 650 ml Laboratory Tests 12/04/17 07:20: Prothrombin Time 13.5H, Prothromb Time International Ratio 1.3H Height (Feet): 5 Height (Inches): 8.00 Weight (Pounds): 134 General Appearance: no apparent distress, alert Kai Norwood MD Dec 04, 2017 13:30
--- NOTE | 2017-12-04 15:54 | General Progress Note ---
Assessment/Plan Status: not improved, unchanged Assessment/Plan # Metastatic lung cancer. Getting triple combination chemotherapy, intermittent development of small right-sided pleural effusion. The patient has required thoracentesis in the past. --> Continue to closely monitor the patient's fluid status. --> thora for 12/03 when inr is better # Anemia due to underlying chronic disease. --> Anemia w/u reviewed, will trend daily --> Hgb goal >7 # Pulmonary embolism on CT, on anticoagulation on Coumadin. --> hold off coumadin until thora completed # Thrombocytopenia, likely due to recently administered chemotherapy. # Coagulopathy, likely due to underlying liver disease. The time the note was entered does not necessarily correspond to the time the patient was seen. Subjective Date patient seen: Dec 04, 2017 ROS Limited/Unobtainable: Yes Hematologic/Lymphatic: Reports: anemia Allergies: Coded Allergies: BRITTANI INHIBITORS (Unverified Allergy, Unknown, 03/19/15) All Systems: reviewed and negative except above Subjective Pt awake and alert. No acute events. Vitals are stable. DC planning. Objective Last 24 Hour Vital Signs Date Time Temp Pulse Resp B/P (MAP) Pulse Ox O2 Delivery O2 Flow Rate FiO2 12/04/17 12:00 81 12/04/17 12:00 98.1 84 20 113/66 (82) 100 98.1 12/04/17 09:04 143/96 12/04/17 09:04 85 143/96 12/04/17 09:00 Nasal Cannula 3.0 12/04/17 08:00 84 12/04/17 08:00 98.2 85 20 143/96 (112) 100 98.2 12/04/17 07:54 Room Air 21 12/04/17 07:54 95 Room Air 21 12/04/17 07:54 93 18 Room Air 21 12/04/17 04:00 98.0 87 20 150/100 (117) 97 98.0 12/04/17 04:00 89 12/04/17 00:00 98.0 93 21 129/74 (92) 97 98.0 12/04/17 00:00 83 12/03/17 21:07 72 145/79 12/03/17 21:06 145/79 12/03/17 21:00 Nasal Cannula 3.0 12/03/17 20:00 98.2 72 21 145/79 (101) 98 98.2 12/03/17 20:00 95 12/03/17 19:08 96 Room Air 21 12/03/17 19:08 Room Air 21 12/03/17 19:07 94 18 Room Air 21 12/03/17 18:50 97.3 12/03/17 17:51 97.3 12/03/17 16:00 95 12/03/17 16:00 98.0 67 19 168/89 (115) 98 98.0 Intake and Output 12/03/17 12/04/17 19:00 07:00 Intake Total 420 ml Output Total 400 ml 650 ml Balance 20 ml -650 ml Intake Oral 420 ml Output Urine Total 400 ml 650 ml Laboratory Tests 12/04/17 07:20: Prothrombin Time 13.5H, Prothromb Time International Ratio 1.3H Height (Feet): 5 Height (Inches): 8.00 Weight (Pounds): 134 General Appearance: no apparent distress, alert EENT: PERRL/EOMI Neck: normal alignment Cardiovascular: normal peripheral pulses Respiratory/Chest: no respiratory distress Abdomen: no organomegaly Anurag Salguero MD Dec 04, 2017 15:54
[2017-12-04 16:00] VITALS: BP 141/74
[2017-12-04] MEDS ORDERED: Warfarin Sodium 7.5mg ORAL SCH (17:00)
[2017-12-04 20:00] VITALS: BP 152/124
[2017-12-04] MEDS: guaiFENesin w/Codeine 5ml Liq ud ORAL PRN (21:41)
[2017-12-05] VITALS (7 sets, daily range): BP systolic 108–161; BP diastolic 52–85
[2017-12-05] MEDS: NovoLOG Insulin Flexpen SUBQ SCH ×4 (06:25→21:00)
[2017-12-05] MEDS: GlipiZIDE 5mg tab ORAL SCH ×2 (06:30→16:25)
[2017-12-05] MEDS: Norco 5mg/325mg tab ORAL PRN ×2 (06:31→16:25)
[2017-12-05 07:10] LABS: INR 1.3 (0.9-1.1)
[2017-12-05] MEDS: Minoxidil 2.5mg tab ORAL SCH ×2 (08:45→21:52)
[2017-12-05] MEDS ORDERED: Solu-MEDROL 40mg Inj IVP SCH (09:00)
--- NOTE | 2017-12-05 09:00 | Pulmonology Progress Note ---
Assessment/Plan Assessment/Plan IMPRESSION: 1. Chronic obstructive pulmonary disease with acute exacerbation. 2. Shortness of breath. 3. Respiratory insufficiency. pleural effusions 4. Possible underlying infection. 5. History of lung cancer. 6. Evidence of hypoxemia. 7. pleural effusion- worse 8. possible pulmonary edema RECOMMENDATIONS: 1. po prednisone and taper 2. Antibiotics ?dc 3. Respiratory treatments. 4. pain management and cough medications as is 5.monitor arterial blood gas for change 6. may dc home with steroid taper and resumption of inhalers impression, plan, and exam edited and reviewed in detail care discussed with RN Subjective Allergies: Coded Allergies: BRITTANI INHIBITORS (Unverified Allergy, Unknown, 03/19/15) Subjective overall care noted no sob unable to tap Objective Last 24 Hour Vital Signs Date Time Temp Pulse Resp B/P (MAP) Pulse Ox O2 Delivery O2 Flow Rate FiO2 12/05/17 08:45 116/66 12/05/17 08:44 83 116/66 12/05/17 07:30 97.0 12/05/17 04:00 97.0 81 20 108/65 (79) 98 97.0 12/05/17 04:00 93 12/05/17 00:00 97.3 86 20 127/72 (90) 94 97.3 12/05/17 00:00 90 12/04/17 21:36 Room Air 12/04/17 21:36 141/74 12/04/17 21:36 83 141/74 12/04/17 21:36 100 Room Air 21 12/04/17 21:35 83 18 Room Air 21 12/04/17 21:00 Nasal Cannula 3.0 12/04/17 20:00 97.5 96 21 152/124 (133) 97 97.5 12/04/17 20:00 96 12/04/17 16:00 98.2 83 24 141/74 (96) 100 98.2 12/04/17 16:00 104 12/04/17 12:00 81 12/04/17 12:00 98.1 84 20 113/66 (82) 100 98.1 12/04/17 09:04 143/96 12/04/17 09:04 85 143/96 12/04/17 09:00 Nasal Cannula 3.0 Intake and Output 12/04/17 12/05/17 19:00 07:00 Intake Total 680 ml Output Total 1200 ml Balance 680 ml -1200 ml Intake Oral 680 ml Output Urine Total 1200 ml # Voids 4 # Bowel Movements 1 Objective WDWN NAD reduced breath sounds overall bilaterally with minimal wheeze [id number] without MRG NABS nontender no HSM no CCE nonfocal Laboratory Tests 12/05/17 05:51: Prothrombin Time 13.3H, Prothromb Time International Ratio 1.3H Current Medications Medications (Trade) Dose Ordered Sig/Allen Route PRN Reason Start Time Stop Time Status Last Admin Dose Admin Acetaminophen/ Hydrocodone Bitart ([place] 5/325) 1 tab Q4H PRN ORAL Moderate Pain (Pain Scale 4-6) 12/05/17 00:00 12/12/17 00:00 12/05/17 06:31 Dextrose (Dextrose 50%) 25 ml STAT PRN IV Hypoglycemia 11/27/17 17:30 12/27/17 17:29 Dextrose (Dextrose 50%) 50 ml STAT PRN IV Hypoglycemia 11/27/17 17:30 12/27/17 17:29 Glipizide (Glucotrol) 5 mg BIAC ORAL 11/29/17 06:30 12/29/17 06:29 12/05/17 06:30 Guaifenesin/ Codeine Phosphate (Robitussin with codeine) 5 ml Q6H PRN ORAL For Cough 11/28/17 09:30 12/28/17 08:59 12/04/17 21:41 Guaifenesin/ Dextromethorphan (Robitussin DM Syrup) 10 ml Q8H PRN ORAL For Cough 11/28/17 09:30 12/28/17 04:29 12/01/17 06:31 Insulin Aspart (NovoLOG) BEFORE MEALS AND HS SUBQ 11/27/17 21:00 12/27/17 20:59 12/04/17 17:17 Labetalol HCl (Normodyne) 500 mg Q12HR ORAL 11/29/17 09:00 12/29/17 08:59 12/05/17 08:44 Methylprednisolone Sodium Succinate (Solu-MEDROL) 40 mg DAILY IVP 12/05/17 09:00 12/28/17 09:29 12/05/17 08:44 Minoxidil (Loniten) 2.5 mg Q12HR ORAL 11/30/17 21:00 12/30/17 20:59 12/05/17 08:45 Mirtazapine (Remeron) 15 mg BEDTIME ORAL 12/01/17 21:00 12/31/17 20:59 12/04/17 21:36 Salmeterol Xinafoate/ Fluticasone (Advair 250/50 Diskus) 1 puffs BID INH 11/27/17 12:00 12/27/17 11:59 12/04/17 21:34 Warfarin Sodium (Coumadin per pharmacy) 1 ea DAILY PRN MISC Per rx protocol 12/04/17 10:00 01/03/18 09:59 Warfarin Sodium (Coumadin) 7.5 mg COUMADIN ORAL 12/05/17 17:00 12/05/17 20:00 Zolpidem Tartrate (Ambien) 5 mg HSPRN PRN ORAL Insomnia 11/29/17 21:00 12/06/17 20:59 11/29/17 20:48 Albino Otero MD Dec 05, 2017 09:00
--- NOTE | 2017-12-05 10:14 | General Progress Note ---
Assessment/Plan Status: stable Assessment/Plan # Metastatic lung cancer. Getting triple combination chemotherapy, intermittent development of small right-sided pleural effusion. The patient has required thoracentesis in the past. --> Continue to closely monitor the patient's fluid status. --> thora for 12/03 when inr is better # Anemia due to underlying chronic disease. --> Anemia w/u reviewed, will trend daily --> Hgb goal >7 # Pulmonary embolism on CT, on anticoagulation on Coumadin. --> hold off coumadin until thora completed # Thrombocytopenia, likely due to recently administered chemotherapy. # Coagulopathy, likely due to underlying liver disease. The time the note was entered does not necessarily correspond to the time the patient was seen. Subjective Date patient seen: Dec 05, 2017 ROS Limited/Unobtainable: Yes Allergies: Coded Allergies: BRITTANI INHIBITORS (Unverified Allergy, Unknown, 03/19/15) All Systems: reviewed and negative except above Subjective Pt awake and alert. No acute events. Vitals are stable. DC planning. Objective Last 24 Hour Vital Signs Date Time Temp Pulse Resp B/P (MAP) Pulse Ox O2 Delivery O2 Flow Rate FiO2 12/05/17 09:52 Nasal Cannula 3.0 12/05/17 08:45 116/66 12/05/17 08:44 83 116/66 12/05/17 08:00 90 12/05/17 08:00 98.2 83 20 116/66 (83) 98 98.2 12/05/17 07:30 97.0 12/05/17 04:00 97.0 81 20 108/65 (79) 98 97.0 12/05/17 04:00 93 12/05/17 00:00 97.3 86 20 127/72 (90) 94 97.3 12/05/17 00:00 90 12/04/17 21:36 Room Air 12/04/17 21:36 141/74 12/04/17 21:36 83 141/74 12/04/17 21:36 100 Room Air 21 12/04/17 21:35 83 18 Room Air 21 12/04/17 21:00 Nasal Cannula 3.0 12/04/17 20:00 97.5 96 21 152/124 (133) 97 97.5 12/04/17 20:00 96 12/04/17 16:00 98.2 83 24 141/74 (96) 100 98.2 12/04/17 16:00 104 12/04/17 12:00 81 12/04/17 12:00 98.1 84 20 113/66 (82) 100 98.1 Intake and Output 12/04/17 12/05/17 19:00 07:00 Intake Total 680 ml Output Total 1200 ml Balance 680 ml -1200 ml Intake Oral 680 ml Output Urine Total 1200 ml # Voids 4 # Bowel Movements 1 Laboratory Tests 12/05/17 05:51: Prothrombin Time 13.3H, Prothromb Time International Ratio 1.3H Height (Feet): 5 Height (Inches): 8.00 Weight (Pounds): 134 General Appearance: no apparent distress, alert EENT: PERRL/EOMI Neck: normal alignment Cardiovascular: normal peripheral pulses Respiratory/Chest: no respiratory distress Abdomen: soft Anurag Salguero MD Dec 05, 2017 10:14
--- NOTE | 2017-12-05 12:45 | General Progress Note ---
Assessment/Plan Assessment/Plan COPD Exacerbation - Bronchdilators, add steroids Pneumonia - on IV Abx h/o PTE on Warfarin Malign. HTN. Finally BP under Control with new combination of meds Awaiting thoracenthesis - not enough fluid. Back on warfarin. PATIENT UNDER - COUMADINIZED. Taking over Coumadinization Subjective Allergies: Coded Allergies: BRITTANI INHIBITORS (Unverified Allergy, Unknown, 03/19/15) Subjective Still SOB + Non productive cough Objective Last 24 Hour Vital Signs Date Time Temp Pulse Resp B/P (MAP) Pulse Ox O2 Delivery O2 Flow Rate FiO2 12/05/17 10:22 95 Room Air 21 12/05/17 10:22 Room Air 21 12/05/17 10:20 85 20 Room Air 21 12/05/17 09:52 Nasal Cannula 3.0 12/05/17 08:45 116/66 12/05/17 08:44 83 116/66 12/05/17 08:00 90 12/05/17 08:00 98.2 83 20 116/66 (83) 98 98.2 12/05/17 07:30 97.0 12/05/17 04:00 97.0 81 20 108/65 (79) 98 97.0 12/05/17 04:00 93 12/05/17 00:00 97.3 86 20 127/72 (90) 94 97.3 12/05/17 00:00 90 12/04/17 21:36 Room Air 12/04/17 21:36 141/74 12/04/17 21:36 83 141/74 12/04/17 21:36 100 Room Air 21 12/04/17 21:35 83 18 Room Air 21 12/04/17 21:00 Nasal Cannula 3.0 12/04/17 20:00 97.5 96 21 152/124 (133) 97 97.5 12/04/17 20:00 96 12/04/17 16:00 98.2 83 24 141/74 (96) 100 98.2 12/04/17 16:00 104 Intake and Output 12/04/17 12/05/17 19:00 07:00 Intake Total 680 ml Output Total 1200 ml Balance 680 ml -1200 ml Intake Oral 680 ml Output Urine Total 1200 ml # Voids 4 # Bowel Movements 1 Laboratory Tests 12/05/17 05:51: Prothrombin Time 13.3H, Prothromb Time International Ratio 1.3H Height (Feet): 5 Height (Inches): 8.00 Weight (Pounds): 134 Objective Cv RR Lungs B wheezes + ronchi Abd SNT. BS + E No CCE Harsh Maher MD Dec 05, 2017 12:45
[2017-12-05] MEDS: Advair 250/50 Inhaler - 14 dose INH SCH ×2 (14:58→18:00)
[2017-12-05] MEDS ORDERED: Warfarin Sodium 10mg ORAL SCH (17:00)
[2017-12-05] MEDS ORDERED: Warfarin Sodium 7.5mg ORAL SCH (17:00)
[2017-12-06] MEDS: NovoLOG Insulin Flexpen SUBQ SCH ×4 (06:06→20:39)
[2017-12-06] MEDS: GlipiZIDE 5mg tab ORAL SCH ×2 (06:06→17:07)
[2017-12-06 07:36] LABS: HEMATOCRIT 29.5 % (42.0-52.0); MEAN CORPUSCULAR VOLUME 97 FL (80-99); PLATELET COUNT 32 K/UL (150-450); RED BLOOD COUNT 3.03 M/UL (4.70-6.10); RED CELL DISTRIBUTION WIDTH 17.3 % (11.6-14.8); WHITE BLOOD COUNT 2.6 K/UL (4.8-10.8)
[2017-12-06 07:39] LABS: INR 1.3 (0.9-1.1)
[2017-12-06 07:54] LABS: ALANINE AMINOTRANSFERASE 50 U/L (12-78); ALBUMIN 2.9 G/DL (3.4-5.0); ALBUMIN/GLOBULIN RATIO 0.8 (1.0-2.7); ALKALINE PHOSPHATASE 67 U/L (46-116); ANION GAP 9 mmol/L (5-15); ASPARTATE AMINO TRANSFERASE 30 U/L (15-37); BILIRUBIN,TOTAL 0.4 MG/DL (0.2-1.0); BLOOD UREA NITROGEN 38 mg/dL (7-18); CALCIUM 8.4 MG/DL (8.5-10.1); CARBON DIOXIDE 27 MMOL/L (21-32); CHLORIDE 106 MMOL/L (98-107); CREATININE 1.6 MG/DL (0.55-1.30); POTASSIUM 3.8 MMOL/L (3.5-5.1); SODIUM 141 MMOL/L (136-145)
[2017-12-06 08:00] VITALS: BP 134/74
[2017-12-06] MEDS: Minoxidil 2.5mg tab ORAL SCH ×2 (08:26→20:47)
--- NOTE | 2017-12-06 09:32 | Pulmonology Progress Note ---
Assessment/Plan Assessment/Plan IMPRESSION: 1. Chronic obstructive pulmonary disease with acute exacerbation. 2. Shortness of breath. 3. Respiratory insufficiency. pleural effusions 4. Possible underlying infection. 5. History of lung cancer. 6. Evidence of hypoxemia. 7. pleural effusion- worse 8. possible pulmonary edema RECOMMENDATIONS: 1. po prednisone and slow taper 2. anticouagulation per heme; monitor wbc per heme 3. Respiratory treatments. Trelegy on dc 4. pain management and cough medications as is 5.monitor arterial blood gas for change 6. may dc home with steroid taper and resumption of inhalers per pulmonary impression, plan, and exam edited and reviewed in detail care discussed with RN Subjective Allergies: Coded Allergies: BRITTANI INHIBITORS (Unverified Allergy, Unknown, 03/19/15) Subjective overall care noted no sob unable to tap off anticoagulation Objective Last 24 Hour Vital Signs Date Time Temp Pulse Resp B/P (MAP) Pulse Ox O2 Delivery O2 Flow Rate FiO2 12/06/17 09:00 Room Air 12/06/17 08:26 134/74 12/06/17 08:26 91 134/74 12/06/17 08:00 97.7 91 21 134/74 (94) 98 97.7 12/06/17 08:00 93 12/06/17 04:00 82 12/06/17 00:00 88 12/05/17 22:42 90 20 Room Air 21 12/05/17 22:41 Room Air 21 12/05/17 21:52 126/73 12/05/17 21:52 91 126/73 12/05/17 21:00 Nasal Cannula 3.0 12/05/17 20:01 97.4 91 18 126/73 (90) 96 97.4 12/05/17 20:00 95 12/05/17 18:45 98 Room Air 21 12/05/17 18:28 100 136/72 (93) 12/05/17 17:24 97.8 12/05/17 16:34 97.8 80 20 161/85 (110) 98 97.8 12/05/17 16:25 97.7 12/05/17 15:41 93 12/05/17 12:55 97.7 86 20 114/52 (72) 98 97.7 12/05/17 11:51 92 12/05/17 10:22 95 Room Air 21 12/05/17 10:22 Room Air 21 12/05/17 10:20 85 20 Room Air 21 12/05/17 09:52 Nasal Cannula 3.0 Intake and Output 12/05/17 12/06/17 19:00 07:00 Intake Total 400 ml 120 ml Balance 400 ml 120 ml Intake Oral 400 ml 120 ml # Voids 3 2 Objective WDWN NAD reduced breath sounds overall bilaterally with minimal wheeze [id number] without MRG NABS nontender no HSM no CCE nonfocal Laboratory Tests 12/06/17 07:00: White Blood Count 2.6L, Red Blood Count 3.03L, Hemoglobin 10.0L, Hematocrit 29.5L, Mean Corpuscular Volume 97, Mean Corpuscular Hemoglobin 33.1H, Mean Corpuscular Hemoglobin Concent 34.0, Red Cell Distribution Width 17.3H, Platelet Count 32L, Mean Platelet Volume 10.0, Neutrophils (%) (Auto) , Lymphocytes (%) (Auto) , Monocytes (%) (Auto) , Eosinophils (%) (Auto) , Basophils (%) (Auto) , Differential Total Cells Counted 100, Neutrophils % ( Manual) 63, Lymphocytes % (Manual) 27, Monocytes % (Manual) 8, Eosinophils % ( Manual) 2, Basophils % (Manual) 0, Band Neutrophils 0, Platelet Estimate DecreasedL, Platelet Morphology , Giant Platelets Occasional, Hypochromasia 1+, Anisocytosis 1+, Prothrombin Time 13.5H, Prothromb Time International Ratio 1.3H , Sodium Level 141, Potassium Level 3.8, Chloride Level 106, Carbon Dioxide Level 27, Anion Gap 9, Blood Urea Nitrogen 38H, Creatinine 1.6H, Estimat Glomerular Filtration Rate 52.5, Glucose Level 89, Calcium Level 8.4L, Total Bilirubin 0.4, Aspartate Amino Transf (AST/SGOT) 30, Alanine Aminotransferase ( ALT/SGPT) 50, Alkaline Phosphatase 67, Total Protein 6.5, Albumin 2.9L, Globulin 3.6, Albumin/Globulin Ratio 0.8L Current Medications Medications (Trade) Dose Ordered Sig/Allen Route PRN Reason Start Time Stop Time Status Last Admin Dose Admin Acetaminophen/ Hydrocodone Bitart ([place] 5/325) 1 tab Q4H PRN ORAL Moderate Pain (Pain Scale 4-6) 12/05/17 00:00 12/12/17 00:00 12/05/17 16:25 Dextrose (Dextrose 50%) 25 ml STAT PRN IV Hypoglycemia 11/27/17 17:30 12/27/17 17:29 Dextrose (Dextrose 50%) 50 ml STAT PRN IV Hypoglycemia 11/27/17 17:30 12/27/17 17:29 Glipizide (Glucotrol) 5 mg BIAC ORAL 11/29/17 06:30 12/29/17 06:29 12/06/17 06:06 Guaifenesin/ Codeine Phosphate (Robitussin with codeine) 5 ml Q6H PRN ORAL For Cough 11/28/17 09:30 12/28/17 08:59 12/04/17 21:41 Guaifenesin/ Dextromethorphan (Robitussin DM Syrup) 10 ml Q8H PRN ORAL For Cough 11/28/17 09:30 12/28/17 04:29 12/01/17 06:31 Insulin Aspart (NovoLOG) BEFORE MEALS AND HS SUBQ 11/27/17 21:00 12/27/17 20:59 12/04/17 17:17 Labetalol HCl (Normodyne) 500 mg Q12HR ORAL 11/29/17 09:00 12/29/17 08:59 12/06/17 08:26 Minoxidil (Loniten) 2.5 mg Q12HR ORAL 11/30/17 21:00 12/30/17 20:59 12/06/17 08:26 Mirtazapine (Remeron) 15 mg BEDTIME ORAL 12/01/17 21:00 12/31/17 20:59 12/05/17 21:52 Prednisone (predniSONE) 20 mg DAILY ORAL 12/05/17 09:00 01/04/18 08:59 12/06/17 08:26 Salmeterol Xinafoate/ Fluticasone (Advair 250/50 Diskus) 1 puffs BID INH 11/27/17 12:00 12/27/17 11:59 12/04/17 21:34 Warfarin Sodium (Coumadin per pharmacy) 1 ea DAILY PRN MISC Per rx protocol 12/04/17 10:00 01/03/18 09:59 Warfarin Sodium (Coumadin) 10 mg COUMADIN ORAL 12/06/17 17:00 12/06/17 19:00 Zolpidem Tartrate (Ambien) 5 mg HSPRN PRN ORAL Insomnia 11/29/17 21:00 12/06/17 20:59 11/29/17 20:48 Albino Otero MD Dec 06, 2017 09:32
[2017-12-06] MEDS: Advair 250/50 Inhaler - 14 dose INH SCH ×2 (09:45→18:00)
[2017-12-06 12:00] VITALS: BP 114/70
--- NOTE | 2017-12-06 12:13 | General Progress Note ---
Assessment/Plan Status: stable Assessment/Plan # Metastatic lung cancer. Getting triple combination chemotherapy, intermittent development of small right-sided pleural effusion. The patient has required thoracentesis in the past. --> Continue to closely monitor the patient's fluid status. --> thora for 12/03 when inr is better # Thrombocytopenia, likely due to recently administered chemotherapy. --> meds reviewed with pharmacy and mirtaazapine or labetolol are potential culprits but rarely implicated <1% --> peripheral smear to be reviewed # Anemia due to underlying chronic disease. --> Anemia w/u reviewed, will trend cbc daily --> Hgb goal >7 # Pulmonary embolism on CT, on anticoagulation on Coumadin. --> hold off coumadin until thora completed # Coagulopathy, likely due to underlying liver disease. --> inr stable 1.4-1.7 The time the note was entered does not necessarily correspond to the time the patient was seen. Subjective Date patient seen: Dec 06, 2017 ROS Limited/Unobtainable: Yes Hematologic/Lymphatic: Reports: anemia Allergies: Coded Allergies: BRITTANI INHIBITORS (Unverified Allergy, Unknown, 03/19/15) All Systems: reviewed and negative except above Subjective Pt awake and alert. No acute events. Vitals are stable. DC planning. Objective Last 24 Hour Vital Signs Date Time Temp Pulse Resp B/P (MAP) Pulse Ox O2 Delivery O2 Flow Rate FiO2 12/06/17 09:47 96 Room Air 21 12/06/17 09:47 Room Air 21 12/06/17 09:47 88 18 Room Air 12/06/17 09:00 Room Air 12/06/17 08:26 134/74 12/06/17 08:26 91 134/74 12/06/17 08:00 97.7 91 21 134/74 (94) 98 97.7 12/06/17 08:00 93 12/06/17 04:00 82 12/06/17 00:00 88 12/05/17 22:42 90 20 Room Air 21 12/05/17 22:41 Room Air 21 12/05/17 21:52 126/73 12/05/17 21:52 91 126/73 12/05/17 21:00 Nasal Cannula 3.0 12/05/17 20:01 97.4 91 18 126/73 (90) 96 97.4 12/05/17 20:00 95 12/05/17 18:45 98 Room Air 21 12/05/17 18:28 100 136/72 (93) 12/05/17 17:24 97.8 12/05/17 16:34 97.8 80 20 161/85 (110) 98 97.8 12/05/17 16:25 97.7 12/05/17 15:41 93 12/05/17 12:55 97.7 86 20 114/52 (72) 98 97.7 Intake and Output 12/05/17 12/06/17 19:00 07:00 Intake Total 400 ml 120 ml Balance 400 ml 120 ml Intake Oral 400 ml 120 ml # Voids 3 2 Laboratory Tests 12/06/17 07:00: White Blood Count 2.6L, Red Blood Count 3.03L, Hemoglobin 10.0L, Hematocrit 29.5L, Mean Corpuscular Volume 97, Mean Corpuscular Hemoglobin 33.1H, Mean Corpuscular Hemoglobin Concent 34.0, Red Cell Distribution Width 17.3H, Platelet Count 32L, Mean Platelet Volume 10.0, Neutrophils (%) (Auto) , Lymphocytes (%) (Auto) , Monocytes (%) (Auto) , Eosinophils (%) (Auto) , Basophils (%) (Auto) , Differential Total Cells Counted 100, Neutrophils % ( Manual) 63, Lymphocytes % (Manual) 27, Monocytes % (Manual) 8, Eosinophils % ( Manual) 2, Basophils % (Manual) 0, Band Neutrophils 0, Platelet Estimate DecreasedL, Platelet Morphology , Giant Platelets Occasional, Hypochromasia 1+, Anisocytosis 1+, Prothrombin Time 13.5H, Prothromb Time International Ratio 1.3H , Sodium Level 141, Potassium Level 3.8, Chloride Level 106, Carbon Dioxide Level 27, Anion Gap 9, Blood Urea Nitrogen 38H, Creatinine 1.6H, Estimat Glomerular Filtration Rate 52.5, Glucose Level 89, Calcium Level 8.4L, Total Bilirubin 0.4, Aspartate Amino Transf (AST/SGOT) 30, Alanine Aminotransferase ( ALT/SGPT) 50, Alkaline Phosphatase 67, Total Protein 6.5, Albumin 2.9L, Globulin 3.6, Albumin/Globulin Ratio 0.8L Height (Feet): 5 Height (Inches): 8.00 Weight (Pounds): 134 General Appearance: no apparent distress, alert EENT: PERRL/EOMI Neck: normal alignment Cardiovascular: normal peripheral pulses Respiratory/Chest: no respiratory distress Abdomen: no organomegaly Anurag Salguero MD Dec 06, 2017 12:13
--- NOTE | 2017-12-06 12:15 | General Progress Note ---
Assessment/Plan Assessment/Plan COPD Exacerbation - Bronchdilators, add steroids Pneumonia - on IV Abx h/o PTE on Warfarin Malign. HTN. Finally BP under Control with new combination of meds Awaiting thoracenthesis - not enough fluid. Back on warfarin. PATIENT UNDERCOUMADINIZED. Taking over Coumadinization Subjective Allergies: Coded Allergies: BRITTANI INHIBITORS (Unverified Allergy, Unknown, 03/19/15) Subjective Less SOB + Non productive cough Objective Last 24 Hour Vital Signs Date Time Temp Pulse Resp B/P (MAP) Pulse Ox O2 Delivery O2 Flow Rate FiO2 12/06/17 09:47 96 Room Air 21 12/06/17 09:47 Room Air 21 12/06/17 09:47 88 18 Room Air 21 12/06/17 09:00 Room Air 12/06/17 08:26 134/74 12/06/17 08:26 91 134/74 12/06/17 08:00 97.7 91 21 134/74 (94) 98 97.7 12/06/17 08:00 93 12/06/17 04:00 82 12/06/17 00:00 88 12/05/17 22:42 90 20 Room Air 21 12/05/17 22:41 Room Air 21 12/05/17 21:52 126/73 12/05/17 21:52 91 126/73 12/05/17 21:00 Nasal Cannula 3.0 12/05/17 20:01 97.4 91 18 126/73 (90) 96 97.4 12/05/17 20:00 95 12/05/17 18:45 98 Room Air 21 12/05/17 18:28 100 136/72 (93) 12/05/17 17:24 97.8 12/05/17 16:34 97.8 80 20 161/85 (110) 98 97.8 12/05/17 16:25 97.7 12/05/17 15:41 93 12/05/17 12:55 97.7 86 20 114/52 (72) 98 97.7 Intake and Output 12/05/17 12/06/17 19:00 07:00 Intake Total 400 ml 120 ml Balance 400 ml 120 ml Intake Oral 400 ml 120 ml # Voids 3 2 Laboratory Tests 12/06/17 07:00: White Blood Count 2.6L, Red Blood Count 3.03L, Hemoglobin 10.0L, Hematocrit 29.5L, Mean Corpuscular Volume 97, Mean Corpuscular Hemoglobin 33.1H, Mean Corpuscular Hemoglobin Concent 34.0, Red Cell Distribution Width 17.3H, Platelet Count 32L, Mean Platelet Volume 10.0, Neutrophils (%) (Auto) , Lymphocytes (%) (Auto) , Monocytes (%) (Auto) , Eosinophils (%) (Auto) , Basophils (%) (Auto) , Differential Total Cells Counted 100, Neutrophils % ( Manual) 63, Lymphocytes % (Manual) 27, Monocytes % (Manual) 8, Eosinophils % ( Manual) 2, Basophils % (Manual) 0, Band Neutrophils 0, Platelet Estimate DecreasedL, Platelet Morphology , Giant Platelets Occasional, Hypochromasia 1+, Anisocytosis 1+, Prothrombin Time 13.5H, Prothromb Time International Ratio 1.3H , Sodium Level 141, Potassium Level 3.8, Chloride Level 106, Carbon Dioxide Level 27, Anion Gap 9, Blood Urea Nitrogen 38H, Creatinine 1.6H, Estimat Glomerular Filtration Rate 52.5, Glucose Level 89, Calcium Level 8.4L, Total Bilirubin 0.4, Aspartate Amino Transf (AST/SGOT) 30, Alanine Aminotransferase ( ALT/SGPT) 50, Alkaline Phosphatase 67, Total Protein 6.5, Albumin 2.9L, Globulin 3.6, Albumin/Globulin Ratio 0.8L Height (Feet): 5 Height (Inches): 8.00 Weight (Pounds): 134 Objective Cv RR Lungs B wheezes + ronchi Quyen SNT. BS + E No CCE Harsh Maher MD Dec 06, 2017 12:15
[2017-12-06] MEDS ORDERED: Warfarin Sodium 10mg ORAL ONE (12:30)
[2017-12-06 16:00] VITALS: BP 139/78
[2017-12-06] MEDS ORDERED: Guaifenesin/DM 10ml syrup ORAL PRN (16:30)
[2017-12-06] MEDS ORDERED: guaiFENesin w/Codeine 5ml Liq ud ORAL PRN (16:30)
[2017-12-06] MEDS ORDERED: Warfarin Sodium 10mg ORAL SCH ×2 (17:00)
[2017-12-06 20:00] VITALS: BP 142/89
[2017-12-06] MEDS: Norco 5mg/325mg tab ORAL PRN (20:48)
[2017-12-06] MEDS ORDERED: Zolpidem 5mg tab ORAL PRN (21:00)
[2017-12-07] VITALS: BP 115/71
[2017-12-07] MEDS: GlipiZIDE 5mg tab ORAL SCH (06:05)
[2017-12-07] MEDS: NovoLOG Insulin Flexpen SUBQ SCH ×4 (06:06→21:38)
[2017-12-07] MEDS: Norco 5mg/325mg tab ORAL PRN ×2 (06:06→21:46)
[2017-12-07 08:00] VITALS: BP 140/94
--- NOTE | 2017-12-07 08:27 | Pulmonology Progress Note ---
Assessment/Plan Assessment/Plan IMPRESSION: 1. Chronic obstructive pulmonary disease with acute exacerbation. 2. Shortness of breath. 3. Respiratory insufficiency. pleural effusions 4. Possible underlying infection. 5. History of lung cancer. 6. Evidence of hypoxemia. 7. pleural effusion- worse 8. possible pulmonary edema RECOMMENDATIONS: 1. po prednisone and slow taper 2. coumadin rx 3. Respiratory treatments. Trelegy on dc 4. pain management and cough medications as is 5.monitor arterial blood gas for change and recommend further 6. may dc home with steroid taper and resumption of inhalers per pulmonary impression, plan, and exam edited and reviewed in detail care discussed with RN Subjective Allergies: Coded Allergies: BRITTANI INHIBITORS (Unverified Allergy, Unknown, 03/19/15) Subjective overall care noted no sob unable to tap off anticoagulation Objective Last 24 Hour Vital Signs Date Time Temp Pulse Resp B/P (MAP) Pulse Ox O2 Delivery O2 Flow Rate FiO2 12/07/17 07:05 97.6 12/07/17 00:00 97.6 55 18 115/71 (86) 96 97.6 12/06/17 21:00 Room Air 12/06/17 20:47 142/89 12/06/17 20:47 81 142/89 12/06/17 20:00 98.2 81 18 142/89 (106) 97 98.2 12/06/17 19:08 95 Room Air 21 12/06/17 19:08 Room Air 21 12/06/17 19:07 89 20 Room Air 21 12/06/17 16:00 97.8 70 20 139/78 (98) 98 97.8 12/06/17 12:00 97.7 86 21 114/70 (85) 97 97.7 12/06/17 12:00 91 12/06/17 09:47 96 Room Air 21 12/06/17 09:47 Room Air 21 12/06/17 09:47 88 18 Room Air 21 12/06/17 09:00 Room Air 12/06/17 08:26 134/74 12/06/17 08:26 91 134/74 Intake and Output 12/06/17 12/07/17 19:00 07:00 Intake Total 640 ml 240 ml Balance 640 ml 240 ml Intake Oral 640 ml 240 ml # Voids 2 Objective WDWN NAD reduced breath sounds overall bilaterally with minimal wheeze [id number] without MRG NABS nontender no HSM no CCE nonfocal Current Medications Medications (Trade) Dose Ordered Sig/Allen Route PRN Reason Start Time Stop Time Status Last Admin Dose Admin Acetaminophen/ Hydrocodone Bitart ([place] 5/325) 1 tab Q4H PRN ORAL Moderate Pain (Pain Scale 4-6) 12/06/17 16:00 12/12/17 00:00 12/07/17 06:06 Dextrose (Dextrose 50%) 25 ml STAT PRN IV Hypoglycemia 12/06/17 16:30 12/27/17 16:29 Dextrose (Dextrose 50%) 50 ml STAT PRN IV Hypoglycemia 12/06/17 16:30 12/27/17 16:29 Glipizide (Glucotrol) 5 mg BIAC ORAL 12/06/17 16:30 12/29/17 06:29 12/07/17 06:05 Guaifenesin/ Codeine Phosphate (Robitussin with codeine) 5 ml Q6H PRN ORAL For Cough 12/06/17 16:30 12/28/17 16:29 Guaifenesin/ Dextromethorphan (Robitussin DM Syrup) 10 ml Q8H PRN ORAL For Cough 12/06/17 16:30 12/28/17 16:29 Insulin Aspart (NovoLOG) BEFORE MEALS AND HS SUBQ 12/06/17 16:30 12/27/17 20:59 Labetalol HCl (Normodyne) 500 mg Q12HR ORAL 12/06/17 21:00 12/29/17 08:59 12/06/17 20:47 Minoxidil (Loniten) 2.5 mg Q12HR ORAL 12/06/17 21:00 12/30/17 20:59 12/06/17 20:47 Mirtazapine (Remeron) 15 mg BEDTIME ORAL 12/06/17 21:00 12/31/17 20:59 12/06/17 20:47 Prednisone (predniSONE) 20 mg DAILY ORAL 12/07/17 09:00 01/04/18 08:59 Salmeterol Xinafoate/ Fluticasone (Advair 250/50 Diskus) 1 puffs BID INH 12/06/17 18:00 12/27/17 11:59 Warfarin Sodium (Coumadin per pharmacy) 1 ea DAILY PRN MISC Per rx protocol 12/07/17 09:00 01/03/18 09:59 Zolpidem Tartrate (Ambien) 5 mg HSPRN PRN ORAL Insomnia 12/06/17 21:00 12/13/17 20:59 Albino Otero MD Dec 07, 2017 08:27
[2017-12-07 09:07] LABS: INR 1.5 (0.9-1.1)
[2017-12-07] MEDS: Minoxidil 2.5mg tab ORAL SCH ×2 (09:09→21:35)
[2017-12-07] MEDS: Advair 250/50 Inhaler - 14 dose INH SCH ×2 (09:45→18:00)
[2017-12-07 12:00] VITALS: BP 139/74
--- NOTE | 2017-12-07 13:49 | General Progress Note ---
Assessment/Plan Assessment/Plan COPD Exacerbation - Bronchdilators, add steroids Pneumonia - on IV Abx h/o PTE on Warfarin PTE - coumadinization Hypoglycemia - DC Glypizide Subjective Allergies: Coded Allergies: BRITTANI INHIBITORS (Unverified Allergy, Unknown, 03/19/15) Subjective Less SOB + Non productive cough Objective Last 24 Hour Vital Signs Date Time Temp Pulse Resp B/P (MAP) Pulse Ox O2 Delivery O2 Flow Rate FiO2 12/07/17 12:00 97.9 70 22 139/74 (95) 100 97.9 12/07/17 12:00 97.9 110 22 139/74 (95) 100 97.9 12/07/17 09:45 97 Room Air 21 12/07/17 09:45 Room Air 21 12/07/17 09:45 84 20 Room Air 21 12/07/17 09:09 140/94 12/07/17 09:09 84 140/94 12/07/17 09:00 Room Air 12/07/17 08:00 98.4 84 21 140/94 (109) 97 98.4 12/07/17 08:00 98.4 50 21 140/94 (109) 97 98.4 12/07/17 07:05 97.6 12/07/17 00:00 97.6 55 18 115/71 (86) 96 97.6 12/06/17 21:00 Room Air 12/06/17 20:47 142/89 12/06/17 20:47 81 142/89 12/06/17 20:00 98.2 81 18 142/89 (106) 97 98.2 12/06/17 19:08 95 Room Air 21 12/06/17 19:08 Room Air 21 12/06/17 19:07 89 20 Room Air 21 12/06/17 16:00 97.8 70 20 139/78 (98) 98 97.8 Intake and Output 12/06/17 12/07/17 19:00 07:00 Intake Total 640 ml 240 ml Balance 640 ml 240 ml Intake Oral 640 ml 240 ml # Voids 2 Laboratory Tests 12/07/17 08:45: Prothrombin Time 15.4H, Prothromb Time International Ratio 1.5H Height (Feet): 5 Height (Inches): 8.00 Weight (Pounds): 134 Objective Cv RR Lungs B wheezes + ronchi Abd SNT. BS + E No CCE Harsh Maher MD Dec 07, 2017 13:49
--- NOTE | 2017-12-07 14:06 | General Progress Note ---
Assessment/Plan Assessment/Plan COPD Exacerbation - Bronchdilators, add steroids Pneumonia - on IV Abx h/o PTE on Warfarin PTE - coumadinization Hypoglycemia - DC Glipizide Low platelates coincide with a dose of Heparin given 11/28 HIT??? Subjective Allergies: Coded Allergies: BRITTANI INHIBITORS (Unverified Allergy, Unknown, 03/19/15) Subjective Less SOB + Non productive cough Objective Last 24 Hour Vital Signs Date Time Temp Pulse Resp B/P (MAP) Pulse Ox O2 Delivery O2 Flow Rate FiO2 12/07/17 12:00 97.9 70 22 139/74 (95) 100 97.9 12/07/17 12:00 97.9 110 22 139/74 (95) 100 97.9 12/07/17 09:45 97 Room Air 21 12/07/17 09:45 Room Air 21 12/07/17 09:45 84 20 Room Air 21 12/07/17 09:09 140/94 12/07/17 09:09 84 140/94 12/07/17 09:00 Room Air 12/07/17 08:00 98.4 84 21 140/94 (109) 97 98.4 12/07/17 08:00 98.4 50 21 140/94 (109) 97 98.4 12/07/17 07:05 97.6 12/07/17 00:00 97.6 55 18 115/71 (86) 96 97.6 12/06/17 21:00 Room Air 12/06/17 20:47 142/89 12/06/17 20:47 81 142/89 12/06/17 20:00 98.2 81 18 142/89 (106) 97 98.2 12/06/17 19:08 95 Room Air 21 12/06/17 19:08 Room Air 21 12/06/17 19:07 89 20 Room Air 21 12/06/17 16:00 97.8 70 20 139/78 (98) 98 97.8 Intake and Output 12/06/17 12/07/17 19:00 07:00 Intake Total 640 ml 240 ml Balance 640 ml 240 ml Intake Oral 640 ml 240 ml # Voids 2 Laboratory Tests 12/07/17 08:45: Prothrombin Time 15.4H, Prothromb Time International Ratio 1.5H Height (Feet): 5 Height (Inches): 8.00 Weight (Pounds): 134 Objective Cv RR Lungs B wheezes + ronchi Abd SNT. BS + E No CCE Harsh Maher MD Dec 07, 2017 14:06
--- NOTE | 2017-12-07 15:01 | General Progress Note ---
Assessment/Plan Status: stable Assessment/Plan # Metastatic lung cancer. Getting triple combination chemotherapy, intermittent development of small right-sided pleural effusion. The patient has required thoracentesis in the past. --> Continue to closely monitor the patient's fluid status. --> thora for 12/03 when inr is better # Thrombocytopenia, likely due to recently administered chemotherapy. --> meds reviewed with pharmacy and mirtaazapine or labetolol are potential culprits but rarely implicated <1% --> peripheral smear to be reviewed # Anemia due to underlying chronic disease. --> Anemia w/u reviewed, will trend cbc daily --> Hgb goal >7 # Pulmonary embolism on CT, on anticoagulation on Coumadin. --> hold off coumadin until thora completed # Coagulopathy, likely due to underlying liver disease. --> inr stable 1.4-1.7 The time the note was entered does not necessarily correspond to the time the patient was seen. Subjective Date patient seen: Dec 07, 2017 ROS Limited/Unobtainable: Yes Hematologic/Lymphatic: Reports: anemia Allergies: Coded Allergies: BRITTANI INHIBITORS (Unverified Allergy, Unknown, 03/19/15) All Systems: reviewed and negative except above Subjective Pt transferred to med surg. Pt awake and alert. No acute events. Vitals are stable. DC planning. Objective Last 24 Hour Vital Signs Date Time Temp Pulse Resp B/P (MAP) Pulse Ox O2 Delivery O2 Flow Rate FiO2 12/07/17 12:00 97.9 70 22 139/74 (95) 100 97.9 12/07/17 12:00 97.9 110 22 139/74 (95) 100 97.9 12/07/17 09:45 97 Room Air 21 12/07/17 09:45 Room Air 21 12/07/17 09:45 84 20 Room Air 21 12/07/17 09:09 140/94 12/07/17 09:09 84 140/94 12/07/17 09:00 Room Air 12/07/17 08:00 98.4 84 21 140/94 (109) 97 98.4 12/07/17 08:00 98.4 50 21 140/94 (109) 97 98.4 12/07/17 07:05 97.6 12/07/17 00:00 97.6 55 18 115/71 (86) 96 97.6 12/06/17 21:00 Room Air 12/06/17 20:47 142/89 12/06/17 20:47 81 142/89 12/06/17 20:00 98.2 81 18 142/89 (106) 97 98.2 12/06/17 19:08 95 Room Air 21 12/06/17 19:08 Room Air 21 12/06/17 19:07 89 20 Room Air 21 12/06/17 16:00 97.8 70 20 139/78 (98) 98 97.8 Intake and Output 12/06/17 12/07/17 19:00 07:00 Intake Total 640 ml 240 ml Balance 640 ml 240 ml Intake Oral 640 ml 240 ml # Voids 2 Laboratory Tests 12/07/17 08:45: Prothrombin Time 15.4H, Prothromb Time International Ratio 1.5H, Heparin-PF4 Antibody Screen [Pending] Height (Feet): 5 Height (Inches): 8.00 Weight (Pounds): 134 General Appearance: no apparent distress, alert EENT: normal ENT inspection Neck: normal alignment Cardiovascular: normal peripheral pulses Respiratory/Chest: no respiratory distress Abdomen: soft Anurag Salguero MD Dec 07, 2017 15:01
--- NOTE | 2017-12-07 15:57 | General Progress Note ---
Assessment/Plan Assessment/Plan mdd anxiety -remeron 15mg qhs -provided ro/st Subjective Date patient seen: Dec 07, 2017 Neurologic/Psychiatric: Reports: anxiety, depressed Allergies: Coded Allergies: BRITTANI INHIBITORS (Unverified Allergy, Unknown, 03/19/15) Subjective the pt asked for remeron which was dced Objective Last 24 Hour Vital Signs Date Time Temp Pulse Resp B/P (MAP) Pulse Ox O2 Delivery O2 Flow Rate FiO2 12/07/17 12:00 97.9 70 22 139/74 (95) 100 97.9 12/07/17 12:00 97.9 110 22 139/74 (95) 100 97.9 12/07/17 09:45 97 Room Air 21 12/07/17 09:45 Room Air 21 12/07/17 09:45 84 20 Room Air 21 12/07/17 09:09 140/94 12/07/17 09:09 84 140/94 12/07/17 09:00 Room Air 12/07/17 08:00 98.4 84 21 140/94 (109) 97 98.4 12/07/17 08:00 98.4 50 21 140/94 (109) 97 98.4 12/07/17 07:05 97.6 12/07/17 00:00 97.6 55 18 115/71 (86) 96 97.6 12/06/17 21:00 Room Air 12/06/17 20:47 142/89 12/06/17 20:47 81 142/89 12/06/17 20:00 98.2 81 18 142/89 (106) 97 98.2 12/06/17 19:08 95 Room Air 21 12/06/17 19:08 Room Air 21 12/06/17 19:07 89 20 Room Air 21 12/06/17 16:00 97.8 70 20 139/78 (98) 98 97.8 Intake and Output 12/06/17 12/07/17 19:00 07:00 Intake Total 640 ml 240 ml Balance 640 ml 240 ml Intake Oral 640 ml 240 ml # Voids 2 Laboratory Tests 12/07/17 08:45: Prothrombin Time 15.4H, Prothromb Time International Ratio 1.5H, Heparin-PF4 Antibody Screen [Pending] Height (Feet): 5 Height (Inches): 8.00 Weight (Pounds): 134 Farhadi,Pantea MD Dec 07, 2017 15:57
[2017-12-07 16:00] VITALS: BP 123/70
[2017-12-07] MEDS ORDERED: Warfarin Sodium 10mg ORAL ONE ×2 (17:00)
[2017-12-07 20:00] VITALS: BP 150/83
[2017-12-08] VITALS (7 sets, daily range): BP systolic 115–175; BP diastolic 58–96
[2017-12-08] MEDS: Norco 5mg/325mg tab ORAL PRN ×2 (06:06→17:20)
[2017-12-08] MEDS: NovoLOG Insulin Flexpen SUBQ SCH ×4 (06:30→20:32)
[2017-12-08 06:35] LABS: INR 1.6 (0.9-1.1)
--- NOTE | 2017-12-08 07:43 | Pulmonology Progress Note ---
Assessment/Plan Assessment/Plan IMPRESSION: 1. Chronic obstructive pulmonary disease with acute exacerbation. 2. Shortness of breath. 3. Respiratory insufficiency. pleural effusions 4. Possible underlying infection. 5. History of lung cancer. 6. Evidence of hypoxemia. 7. pleural effusion- worse 8. possible pulmonary edema RECOMMENDATIONS: 1. po prednisone to off 2. HIT evaluation 3. Respiratory treatments. Trelegy on dc; Advair for now 4. pain management and cough medications as is 5.monitor arterial blood gas for change and recommend further 6. ok to dc per pulmonary; discussed impression, plan, and exam edited and reviewed in detail care discussed with RN Subjective Allergies: Coded Allergies: BRITTANI INHIBITORS (Unverified Allergy, Unknown, 03/19/15) Subjective overall care reviewed platelets dropping no sob Objective Last 24 Hour Vital Signs Date Time Temp Pulse Resp B/P (MAP) Pulse Ox O2 Delivery O2 Flow Rate FiO2 12/08/17 00:00 97.9 65 20 119/73 (88) 98 97.9 12/07/17 21:36 102 123/70 12/07/17 21:35 123/70 12/07/17 21:00 Room Air 12/07/17 20:23 102 18 Nasal Cannula 2.0 28 12/07/17 20:23 98 Nasal Cannula 2.0 28 12/07/17 20:23 Nasal Cannula 2.0 28 12/07/17 20:00 98.2 50 19 150/83 (105) 99 98.2 12/07/17 16:00 97.9 86 20 123/70 (87) 98 97.9 12/07/17 12:00 97.9 70 22 139/74 (95) 100 97.9 12/07/17 12:00 97.9 110 22 139/74 (95) 100 97.9 12/07/17 09:45 97 Room Air 21 12/07/17 09:45 Room Air 21 12/07/17 09:45 84 20 Room Air 21 12/07/17 09:09 140/94 12/07/17 09:09 84 140/94 12/07/17 09:00 Room Air 12/07/17 08:00 98.4 84 21 140/94 (109) 97 98.4 12/07/17 08:00 98.4 50 21 140/94 (109) 97 98.4 Intake and Output 12/07/17 12/08/17 19:00 07:00 Intake Total 1420 ml Output Total 2380 ml Balance -960 ml Intake Oral 1420 ml Output Urine Total 1500 ml Other 880 ml # Voids 2 Objective WDWN NAD reduced breath sounds overall bilaterally with minimal wheeze [id number] without MRG NABS nontender no HSM no CCE nonfocal Laboratory Tests 12/07/17 08:45: Prothrombin Time 15.4H, Prothromb Time International Ratio 1.5H, Heparin-PF4 Antibody Screen [Pending] 12/08/17 05:35: Prothrombin Time 16.7H, Prothromb Time International Ratio 1.6H, Heparin-PF4 Antibody Screen [Pending] Current Medications Medications (Trade) Dose Ordered Sig/Allen Route PRN Reason Start Time Stop Time Status Last Admin Dose Admin Acetaminophen/ Hydrocodone Bitart ([place] 5/325) 1 tab Q4H PRN ORAL Moderate Pain (Pain Scale 4-6) 12/06/17 16:00 12/12/17 00:00 12/08/17 06:06 Dextrose (Dextrose 50%) 25 ml STAT PRN IV Hypoglycemia 12/06/17 16:30 12/27/17 16:29 Dextrose (Dextrose 50%) 50 ml STAT PRN IV Hypoglycemia 12/06/17 16:30 12/27/17 16:29 Guaifenesin/ Codeine Phosphate (Robitussin with codeine) 5 ml Q6H PRN ORAL For Cough 12/06/17 16:30 12/28/17 16:29 Guaifenesin/ Dextromethorphan (Robitussin DM Syrup) 10 ml Q8H PRN ORAL For Cough 12/06/17 16:30 12/28/17 16:29 Insulin Aspart (NovoLOG) BEFORE MEALS AND HS SUBQ 12/06/17 16:30 12/27/17 20:59 Labetalol HCl (Normodyne) 500 mg Q12HR ORAL 12/06/17 21:00 12/29/17 08:59 12/07/17 21:36 Minoxidil (Loniten) 2.5 mg Q12HR ORAL 12/06/17 21:00 12/30/17 20:59 12/07/17 21:35 Prednisone (predniSONE) 5 mg DAILY ORAL 12/08/17 09:00 01/04/18 08:59 Salmeterol Xinafoate/ Fluticasone (Advair 250/50 Diskus) 1 puffs BID INH 12/06/17 18:00 12/27/17 11:59 Albino Otero MD Dec 08, 2017 07:43
[2017-12-08] MEDS: Advair 250/50 Inhaler - 14 dose INH SCH ×2 (08:45→18:00)
--- NOTE | 2017-12-08 09:02 | General Progress Note ---
Assessment/Plan Status: unchanged Assessment/Plan # Metastatic lung cancer. Getting triple combination chemotherapy, intermittent development of small right-sided pleural effusion. The patient has required thoracentesis in the past. --> Continue to closely monitor the patient's fluid status. --> thora for 12/03 when inr is better # Thrombocytopenia, likely due to recently administered chemotherapy. --> meds reviewed with pharmacy and mirtaazapine or labetolol are potential culprits but rarely implicated <1% --> peripheral smear to be reviewed --> 12/08 PLT trending downwards # Anemia due to underlying chronic disease. --> Anemia w/u reviewed, will trend cbc daily --> Hgb goal >7 # Pulmonary embolism on CT, on anticoagulation on Coumadin. --> hold off coumadin until thora completed # Coagulopathy, likely due to underlying liver disease. --> inr stable 1.4-1.7 The time the note was entered does not necessarily correspond to the time the patient was seen. Subjective Date patient seen: Dec 08, 2017 ROS Limited/Unobtainable: Yes Hematologic/Lymphatic: Reports: anemia Allergies: Coded Allergies: BRITTANI INHIBITORS (Unverified Allergy, Unknown, 03/19/15) All Systems: reviewed and negative except above Subjective Plt count trending downwards. Pt awake and alert. No acute events. Vitals are stable. US abd scheduled for today. Objective Last 24 Hour Vital Signs Date Time Temp Pulse Resp B/P (MAP) Pulse Ox O2 Delivery O2 Flow Rate FiO2 12/08/17 08:31 Room Air 12/08/17 08:00 98.1 75 18 120/58 (78) 98 98.1 12/08/17 00:00 97.9 65 20 119/73 (88) 98 97.9 12/07/17 21:36 102 123/70 12/07/17 21:35 123/70 12/07/17 21:00 Room Air 12/07/17 20:23 102 18 Nasal Cannula 2.0 28 12/07/17 20:23 98 Nasal Cannula 2.0 28 12/07/17 20:23 Nasal Cannula 2.0 28 12/07/17 20:00 98.2 50 19 150/83 (105) 99 98.2 12/07/17 16:00 97.9 86 20 123/70 (87) 98 97.9 12/07/17 12:00 97.9 70 22 139/74 (95) 100 97.9 12/07/17 12:00 97.9 110 22 139/74 (95) 100 97.9 12/07/17 09:45 97 Room Air 21 12/07/17 09:45 Room Air 21 12/07/17 09:45 84 20 Room Air 21 12/07/17 09:09 140/94 12/07/17 09:09 84 140/94 12/07/17 09:00 Room Air Intake and Output 12/07/17 12/08/17 19:00 07:00 Intake Total 1420 ml Output Total 2380 ml Balance -960 ml Intake Oral 1420 ml Output Urine Total 1500 ml Other 880 ml # Voids 2 Laboratory Tests 12/08/17 05:35: Prothrombin Time 16.7H, Prothromb Time International Ratio 1.6H, Heparin-PF4 Antibody Screen [Pending] Height (Feet): 5 Height (Inches): 8.00 Weight (Pounds): 134 General Appearance: no apparent distress, alert EENT: PERRL/EOMI Neck: normal alignment Cardiovascular: normal peripheral pulses Respiratory/Chest: no respiratory distress Abdomen: soft Anurag Salguero MD Dec 08, 2017 09:02
[2017-12-08] MEDS: Minoxidil 2.5mg tab ORAL SCH ×2 (09:38→20:31)
--- NOTE | 2017-12-08 15:28 | General Progress Note ---
Assessment/Plan Assessment/Plan COPD Exacerbation - Bronchdilators, add steroids Pneumonia - on IV Abx h/o PTE on Warfarin PTE - coumadinization Hypoglycemia - DC Glipizide Low platelates coincide with a dose of Heparin given 11/28 HIT??? Subjective Allergies: Coded Allergies: BRITTANI INHIBITORS (Unverified Allergy, Unknown, 03/19/15) Subjective Less SOB + Non productive cough Objective Last 24 Hour Vital Signs Date Time Temp Pulse Resp B/P (MAP) Pulse Ox O2 Delivery O2 Flow Rate FiO2 12/08/17 12:00 97.2 84 19 129/80 (96) 96 97.2 12/08/17 09:38 120/58 12/08/17 09:37 75 120/58 12/08/17 08:45 Room Air 12/08/17 08:45 94 Room Air 21 12/08/17 08:31 Room Air 12/08/17 08:00 98.1 75 18 120/58 (78) 98 98.1 12/08/17 07:50 91 18 Room Air 21 12/08/17 00:00 97.9 65 20 119/73 (88) 98 97.9 12/07/17 21:36 102 123/70 12/07/17 21:35 123/70 12/07/17 21:00 Room Air 12/07/17 20:23 102 18 Nasal Cannula 2.0 28 12/07/17 20:23 98 Nasal Cannula 2.0 28 12/07/17 20:23 Nasal Cannula 2.0 28 12/07/17 20:00 98.2 50 19 150/83 (105) 99 98.2 12/07/17 16:00 97.9 86 20 123/70 (87) 98 97.9 Intake and Output 12/07/17 12/08/17 19:00 07:00 Intake Total 1420 ml Output Total 2380 ml Balance -960 ml Intake Oral 1420 ml Output Urine Total 1500 ml Other 880 ml # Voids 2 Laboratory Tests 12/08/17 05:35: Prothrombin Time 16.7H, Prothromb Time International Ratio 1.6H, Heparin-PF4 Antibody Screen [Pending] Height (Feet): 5 Height (Inches): 8.00 Weight (Pounds): 134 Objective Cv RR Lungs B wheezes + ronchi Abd SNT. BS + E No CCE Shechter,Pagiel MD Dec 08, 2017 15:28
--- NOTE | 2017-12-08 15:28 | General Progress Note ---
Assessment/Plan Status: stable Assessment/Plan mdd anxiety -remeron 15mg qhs -provided ro/st Subjective Date patient seen: Dec 08, 2017 Neurologic/Psychiatric: Reports: anxiety, depressed, emotional problems Allergies: Coded Allergies: BRITTANI INHIBITORS (Unverified Allergy, Unknown, 03/19/15) Subjective the pt asked for Remeron Objective Last 24 Hour Vital Signs Date Time Temp Pulse Resp B/P (MAP) Pulse Ox O2 Delivery O2 Flow Rate FiO2 12/08/17 12:00 97.2 84 19 129/80 (96) 96 97.2 12/08/17 09:38 120/58 12/08/17 09:37 75 120/58 12/08/17 08:45 Room Air 12/08/17 08:45 94 Room Air 21 12/08/17 08:31 Room Air 12/08/17 08:00 98.1 75 18 120/58 (78) 98 98.1 12/08/17 07:50 91 18 Room Air 21 12/08/17 00:00 97.9 65 20 119/73 (88) 98 97.9 12/07/17 21:36 102 123/70 12/07/17 21:35 123/70 12/07/17 21:00 Room Air 12/07/17 20:23 102 18 Nasal Cannula 2.0 28 12/07/17 20:23 98 Nasal Cannula 2.0 28 12/07/17 20:23 Nasal Cannula 2.0 28 12/07/17 20:00 98.2 50 19 150/83 (105) 99 98.2 12/07/17 16:00 97.9 86 20 123/70 (87) 98 97.9 Intake and Output 12/07/17 12/08/17 19:00 07:00 Intake Total 1420 ml Output Total 2380 ml Balance -960 ml Intake Oral 1420 ml Output Urine Total 1500 ml Other 880 ml # Voids 2 Laboratory Tests 12/08/17 05:35: Prothrombin Time 16.7H, Prothromb Time International Ratio 1.6H, Heparin-PF4 Antibody Screen [Pending] Height (Feet): 5 Height (Inches): 8.00 Weight (Pounds): 134 General Appearance: no apparent distress, alert Neurologic: oriented x 3, responsive, depressed affect Kai Norwood MD Dec 08, 2017 15:28
[2017-12-08 15:54] LABS: HEMATOCRIT 28.1 % (42.0-52.0); HEMOGLOBIN 9.4 G/DL (14.2-18.0); MEAN CORPUSCULAR VOLUME 100 FL (80-99); PLATELET COUNT 47 K/UL (150-450); RED CELL DISTRIBUTION WIDTH 18.4 % (11.6-14.8); WHITE BLOOD COUNT 4.3 K/UL (4.8-10.8)
--- NOTE | 2017-12-08 16:13 | Diagnostic Imaging Report ---
Indication: Abdominal distention. Abnormal renal function tests Technique: Johnson-scale and duplex images of the upper abdomen were obtained Comparison: none Findings: Gallbladder demonstrates sludge. No stones, wall thickening, nor pericholecystic fluid. Sonographic Thomas's sign is negative. Common bile duct measures 3 mm in diameter. No intrahepatic biliary ductal dilatation. Liver demonstrates normal echogenicity, no focal abnormality.. Slightly enlarged. Portal vein and hepatic veins are patent. Pancreas is unremarkable. Spleen is unremarkable. Left kidney measures 11.8 cm in length. Right kidney measures 11.2 cm length. Both kidneys demonstrate slightly increased echogenicity There is no hydronephrosis. There are bilateral renal cysts noted . The abdominal aorta demonstrates a small fusiform aneurysm with mural thrombus, measuring up to 3.2 cm AP diameter . There is a large right pleural effusion Impression: Gallbladder sludge. Negative for gallstones or dilated ducts Mild hepatomegaly Increased renal echogenicity, consistent with medical renal disease Small fusiform abdominal aortic aneurysm, measuring up to 3.2 cm diameter Large right pleural effusion
[2017-12-09] VITALS: BP 125/61
[2017-12-09 04:00] VITALS: BP 139/78
[2017-12-09] MEDS: NovoLOG Insulin Flexpen SUBQ SCH ×4 (06:30→21:00)
[2017-12-09 07:34] LABS: HEMATOCRIT 26.9 % (42.0-52.0); HEMOGLOBIN 8.8 G/DL (14.2-18.0); MEAN CORPUSCULAR VOLUME 101 FL (80-99); PLATELET COUNT 62 K/UL (150-450); RED BLOOD COUNT 2.66 M/UL (4.70-6.10); RED CELL DISTRIBUTION WIDTH 18.7 % (11.6-14.8); WHITE BLOOD COUNT 4.6 K/UL (4.8-10.8)
[2017-12-09 07:53] LABS: INR 1.6 (0.9-1.1)
[2017-12-09 07:54] VITALS: BP 136/78
[2017-12-09] MEDS: Norco 5mg/325mg tab ORAL PRN (07:54)
[2017-12-09] MEDS: Minoxidil 2.5mg tab ORAL SCH ×2 (08:58→21:35)
[2017-12-09] MEDS: Advair 250/50 Inhaler - 14 dose INH SCH ×2 (09:00→18:00)
--- NOTE | 2017-12-09 10:39 | General Progress Note ---
Assessment/Plan Assessment/Plan COPD Exacerbation - Bronchdilators, add steroids Pneumonia - on IV Abx h/o PTE on Warfarin PTE - coumadinization Hypoglycemia - DC Glipizide Low platelates coincide with a dose of Heparin given 11/28 HIT??? m/p not. Low platelets are due to recent chemotherapy. Last dose given 11/25/17. Today plt up to 62K. redose warfarin @ 10 mg. DW Rx. Hope to Dc home tomorrow. Subjective Allergies: Coded Allergies: BRITTANI INHIBITORS (Unverified Allergy, Unknown, 03/19/15) Subjective Less SOB + Non productive cough Objective Last 24 Hour Vital Signs Date Time Temp Pulse Resp B/P (MAP) Pulse Ox O2 Delivery O2 Flow Rate FiO2 12/09/17 08:59 86 136/78 12/09/17 08:58 136/78 12/09/17 08:53 98.2 12/09/17 08:14 Nasal Cannula 2.0 12/09/17 07:54 98.2 86 20 136/78 (97) 100 98.2 12/09/17 07:54 98.2 12/09/17 07:50 Room Air 12/09/17 07:50 86 18 Room Air 21 12/09/17 07:50 97 Room Air 12/09/17 04:00 98.0 78 18 139/78 (98) 97 98.0 12/09/17 00:00 98.1 80 18 125/61 (82) 100 98.1 12/08/17 21:34 98.0 87 20 129/73 (91) 97 98.0 12/08/17 21:00 Room Air 12/08/17 20:31 175/94 12/08/17 20:30 92 175/94 12/08/17 20:00 98.1 92 20 175/96 (122) 96 98.1 12/08/17 19:31 96 Room Air 12/08/17 19:31 Room Air 12/08/17 19:30 89 18 Room Air 21 12/08/17 17:20 98.1 12/08/17 16:03 98.1 93 18 115/70 (85) 96 98.1 12/08/17 16:00 98.1 93 18 115/70 (85) 96 98.1 12/08/17 12:00 97.2 84 19 129/80 (96) 96 97.2 Intake and Output 12/08/17 12/09/17 19:00 07:00 Intake Total 740 ml Balance 740 ml Intake Oral 740 ml # Voids 5 4 Laboratory Tests 12/08/17 15:32: White Blood Count 4.3L, Red Blood Count 2.80L, Hemoglobin 9.4L, Hematocrit 28.1L , Mean Corpuscular Volume 100H, Mean Corpuscular Hemoglobin 33.4H, Mean Corpuscular Hemoglobin Concent 33.3, Red Cell Distribution Width 18.4H, Platelet Count 47L, Mean Platelet Volume 11.2H, Neutrophils (%) (Auto) , Lymphocytes (%) (Auto) , Monocytes (%) (Auto) , Eosinophils (%) (Auto) , Basophils (%) (Auto) , Differential Total Cells Counted 100, Neutrophils % ( Manual) 69, Lymphocytes % (Manual) 18L, Monocytes % (Manual) 9, Eosinophils % ( Manual) 0, Basophils % (Manual) 1, Band Neutrophils 3, Platelet Estimate DecreasedL, Platelet Morphology Normal, Hypochromasia 1+, Anisocytosis 1+ 12/09/17 06:19: White Blood Count 4.6L, Red Blood Count 2.66L, Hemoglobin 8.8L, Hematocrit 26.9L , Mean Corpuscular Volume 101H, Mean Corpuscular Hemoglobin 33.3H, Mean Corpuscular Hemoglobin Concent 32.9, Red Cell Distribution Width 18.7H, Platelet Count 62L, Mean Platelet Volume 10.7H, Neutrophils (%) (Auto) , Lymphocytes (%) (Auto) , Monocytes (%) (Auto) , Eosinophils (%) (Auto) , Basophils (%) (Auto) , Differential Total Cells Counted 100, Neutrophils % ( Manual) 60, Lymphocytes % (Manual) 20, Monocytes % (Manual) 17H, Eosinophils % ( Manual) 3, Basophils % (Manual) 0, Band Neutrophils 0, Platelet Estimate DecreasedL, Platelet Morphology Normal, Anisocytosis 2+, Macrocytosis 1+, Tear Drop Cells , Schistocytes 1+, Prothrombin Time 16.7H, Prothromb Time International Ratio 1.6H, Magnesium Level 1.7L, Heparin-PF4 Antibody Screen [ Pending] Height (Feet): 5 Height (Inches): 8.00 Weight (Pounds): 134 Objective Cv RR Lungs B wheezes + jefferson Napier SNT. BS + E No CCE Harsh Maher MD Dec 09, 2017 10:39
[2017-12-09 12:00] VITALS: BP 128/81
--- NOTE | 2017-12-09 14:56 | General Progress Note ---
Assessment/Plan Status: stable, progressing Assessment/Plan mdd anxiety -remeron 15mg qhs -provided ro/st Subjective Date patient seen: Dec 09, 2017 Neurologic/Psychiatric: Reports: anxiety, depressed, emotional problems Allergies: Coded Allergies: BRITTANI INHIBITORS (Unverified Allergy, Unknown, 03/19/15) Subjective the pt thrombocytes improved Objective Last 24 Hour Vital Signs Date Time Temp Pulse Resp B/P (MAP) Pulse Ox O2 Delivery O2 Flow Rate FiO2 12/09/17 12:00 97.7 92 20 128/81 (97) 100 97.7 12/09/17 08:59 86 136/78 12/09/17 08:58 136/78 12/09/17 08:53 98.2 12/09/17 08:14 Nasal Cannula 2.0 12/09/17 07:54 98.2 86 20 136/78 (97) 100 98.2 12/09/17 07:54 98.2 12/09/17 07:50 Room Air 12/09/17 07:50 86 18 Room Air 21 12/09/17 07:50 97 Room Air 12/09/17 04:00 98.0 78 18 139/78 (98) 97 98.0 12/09/17 00:00 98.1 80 18 125/61 (82) 100 98.1 12/08/17 21:34 98.0 87 20 129/73 (91) 97 98.0 12/08/17 21:00 Room Air 12/08/17 20:31 175/94 12/08/17 20:30 92 175/94 12/08/17 20:00 98.1 92 20 175/96 (122) 96 98.1 12/08/17 19:31 96 Room Air 12/08/17 19:31 Room Air 12/08/17 19:30 89 18 Room Air 21 12/08/17 17:20 98.1 12/08/17 16:03 98.1 93 18 115/70 (85) 96 98.1 12/08/17 16:00 98.1 93 18 115/70 (85) 96 98.1 Intake and Output 12/08/17 12/09/17 19:00 07:00 Intake Total 740 ml Balance 740 ml Intake Oral 740 ml # Voids 5 4 Laboratory Tests 12/08/17 15:32: White Blood Count 4.3L, Red Blood Count 2.80L, Hemoglobin 9.4L, Hematocrit 28.1L , Mean Corpuscular Volume 100H, Mean Corpuscular Hemoglobin 33.4H, Mean Corpuscular Hemoglobin Concent 33.3, Red Cell Distribution Width 18.4H, Platelet Count 47L, Mean Platelet Volume 11.2H, Neutrophils (%) (Auto) , Lymphocytes (%) (Auto) , Monocytes (%) (Auto) , Eosinophils (%) (Auto) , Basophils (%) (Auto) , Differential Total Cells Counted 100, Neutrophils % ( Manual) 69, Lymphocytes % (Manual) 18L, Monocytes % (Manual) 9, Eosinophils % ( Manual) 0, Basophils % (Manual) 1, Band Neutrophils 3, Platelet Estimate DecreasedL, Platelet Morphology Normal, Hypochromasia 1+, Anisocytosis 1+ 12/09/17 06:19: White Blood Count 4.6L, Red Blood Count 2.66L, Hemoglobin 8.8L, Hematocrit 26.9L , Mean Corpuscular Volume 101H, Mean Corpuscular Hemoglobin 33.3H, Mean Corpuscular Hemoglobin Concent 32.9, Red Cell Distribution Width 18.7H, Platelet Count 62L, Mean Platelet Volume 10.7H, Neutrophils (%) (Auto) , Lymphocytes (%) (Auto) , Monocytes (%) (Auto) , Eosinophils (%) (Auto) , Basophils (%) (Auto) , Differential Total Cells Counted 100, Neutrophils % ( Manual) 60, Lymphocytes % (Manual) 20, Monocytes % (Manual) 17H, Eosinophils % ( Manual) 3, Basophils % (Manual) 0, Band Neutrophils 0, Platelet Estimate DecreasedL, Platelet Morphology Normal, Anisocytosis 2+, Macrocytosis 1+, Tear Drop Cells , Schistocytes 1+, Prothrombin Time 16.7H, Prothromb Time International Ratio 1.6H, Magnesium Level 1.7L, Heparin-PF4 Antibody Screen [ Pending] Height (Feet): 5 Height (Inches): 8.00 Weight (Pounds): 134 General Appearance: no apparent distress, alert Neurologic: oriented x 3, responsive, depressed affect Kai Norwood MD Dec 09, 2017 14:56
[2017-12-09 16:36] VITALS: BP 133/69
[2017-12-09] MEDS ORDERED: Warfarin Sodium 10mg ORAL ONE (17:00)
--- NOTE | 2017-12-09 17:17 | Pulmonology Progress Note ---
Assessment/Plan Assessment/Plan IMPRESSION: 1. Chronic obstructive pulmonary disease with acute exacerbation. 2. Shortness of breath. 3. Respiratory insufficiency. pleural effusions 4. Possible underlying infection. 5. History of lung cancer. 6. Evidence of hypoxemia. 7. pleural effusion- worse 8. possible pulmonary edema RECOMMENDATIONS: 1. po prednisone to off 2. heme follow up 3. Respiratory treatments. Trelegy on dc; Advair for now 4. pain management and cough medications as is 5.monitor arterial blood gas for change and recommend further 6. ok to dc per pulmonary; will follow up as outpatient impression, plan, and exam edited and reviewed in detail care discussed with RN Subjective Allergies: Coded Allergies: BRITTANI INHIBITORS (Unverified Allergy, Unknown, 03/19/15) Subjective overall care reviewed platelets noted no change in sob Objective Last 24 Hour Vital Signs Date Time Temp Pulse Resp B/P (MAP) Pulse Ox O2 Delivery O2 Flow Rate FiO2 12/09/17 16:36 97.6 91 20 133/69 (90) 100 97.6 12/09/17 12:00 97.7 92 20 128/81 (97) 100 97.7 12/09/17 08:59 86 136/78 12/09/17 08:58 136/78 12/09/17 08:53 98.2 12/09/17 08:14 Nasal Cannula 2.0 12/09/17 07:54 98.2 86 20 136/78 (97) 100 98.2 12/09/17 07:54 98.2 12/09/17 07:50 Room Air 12/09/17 07:50 86 18 Room Air 21 12/09/17 07:50 97 Room Air 12/09/17 04:00 98.0 78 18 139/78 (98) 97 98.0 12/09/17 00:00 98.1 80 18 125/61 (82) 100 98.1 12/08/17 21:34 98.0 87 20 129/73 (91) 97 98.0 12/08/17 21:00 Room Air 12/08/17 20:31 175/94 12/08/17 20:30 92 175/94 12/08/17 20:00 98.1 92 20 175/96 (122) 96 98.1 12/08/17 19:31 96 Room Air 12/08/17 19:31 Room Air 12/08/17 19:30 89 18 Room Air 21 12/08/17 17:20 98.1 Intake and Output 12/08/17 12/09/17 19:00 07:00 Intake Total 740 ml Balance 740 ml Intake Oral 740 ml # Voids 5 4 Objective WDWN NAD reduced breath sounds overall bilaterally with minimal wheeze [id number] without MRG NABS nontender no HSM no CCE nonfocal Laboratory Tests 12/09/17 06:19: White Blood Count 4.6L, Red Blood Count 2.66L, Hemoglobin 8.8L, Hematocrit 26.9L , Mean Corpuscular Volume 101H, Mean Corpuscular Hemoglobin 33.3H, Mean Corpuscular Hemoglobin Concent 32.9, Red Cell Distribution Width 18.7H, Platelet Count 62L, Mean Platelet Volume 10.7H, Neutrophils (%) (Auto) , Lymphocytes (%) (Auto) , Monocytes (%) (Auto) , Eosinophils (%) (Auto) , Basophils (%) (Auto) , Differential Total Cells Counted 100, Neutrophils % ( Manual) 60, Lymphocytes % (Manual) 20, Monocytes % (Manual) 17H, Eosinophils % ( Manual) 3, Basophils % (Manual) 0, Band Neutrophils 0, Platelet Estimate DecreasedL, Platelet Morphology Normal, Anisocytosis 2+, Macrocytosis 1+, Tear Drop Cells , Schistocytes 1+, Prothrombin Time 16.7H, Prothromb Time International Ratio 1.6H, Magnesium Level 1.7L, Heparin-PF4 Antibody Screen [ Pending] Current Medications Medications (Trade) Dose Ordered Sig/Allen Route PRN Reason Start Time Stop Time Status Last Admin Dose Admin Acetaminophen/ Hydrocodone Bitart ([place] 5/325) 1 tab Q4H PRN ORAL Moderate Pain (Pain Scale 4-6) 12/06/17 16:00 12/12/17 00:00 12/09/17 07:54 Dextrose (Dextrose 50%) 25 ml STAT PRN IV Hypoglycemia 12/06/17 16:30 12/27/17 16:29 Dextrose (Dextrose 50%) 50 ml STAT PRN IV Hypoglycemia 12/06/17 16:30 12/27/17 16:29 Guaifenesin/ Codeine Phosphate (Robitussin with codeine) 5 ml Q6H PRN ORAL For Cough 12/06/17 16:30 12/28/17 16:29 Guaifenesin/ Dextromethorphan (Robitussin DM Syrup) 10 ml Q8H PRN ORAL For Cough 12/06/17 16:30 12/28/17 16:29 Insulin Aspart (NovoLOG) BEFORE MEALS AND HS SUBQ 12/06/17 16:30 12/27/17 20:59 Labetalol HCl (Normodyne) 500 mg Q12HR ORAL 12/06/17 21:00 12/29/17 08:59 12/09/17 08:59 Minoxidil (Loniten) 2.5 mg Q12HR ORAL 12/06/17 21:00 12/30/17 20:59 12/09/17 08:58 Mirtazapine (Remeron) 15 mg BEDTIME ORAL 12/09/17 21:00 01/08/18 20:59 Prednisone (predniSONE) 5 mg DAILY ORAL 12/08/17 09:00 01/04/18 08:59 12/09/17 08:58 Salmeterol Xinafoate/ Fluticasone (Advair 250/50 Diskus) 1 puffs BID INH 12/06/17 18:00 12/27/17 11:59 Warfarin Sodium (Coumadin per pharmacy) 1 ea DAILY PRN MISC . 12/09/17 10:45 01/08/18 10:44 Albino Otero MD Dec 09, 2017 17:17
--- NOTE | 2017-12-09 18:22 | General Progress Note ---
Assessment/Plan Status: unchanged Assessment/Plan # Metastatic lung cancer. Getting triple combination chemotherapy, intermittent development of small right-sided pleural effusion. The patient has required thoracentesis in the past. --> Continue to closely monitor the patient's fluid status. --> thora for 12/03 when inr is better # Thrombocytopenia, likely due to recently administered chemotherapy. --> meds reviewed with pharmacy and mirtaazapine or labetolol are potential culprits but rarely implicated <1% --> peripheral smear to be reviewed --> 12/08 PLT trending downwards --> US abd shows gallbladder sludge. Negative for gallstones or dilated ducts. # Anemia due to underlying chronic disease. --> Anemia w/u reviewed, will trend cbc daily --> Hgb goal >7 # Pulmonary embolism on CT, on anticoagulation on Coumadin. --> hold off coumadin until thora completed # Coagulopathy, likely due to underlying liver disease. --> inr stable 1.4-1.7 The time the note was entered does not necessarily correspond to the time the patient was seen. Subjective Date patient seen: Dec 09, 2017 ROS Limited/Unobtainable: Yes Hematologic/Lymphatic: Reports: anemia Allergies: Coded Allergies: BRITTANI INHIBITORS (Unverified Allergy, Unknown, 03/19/15) All Systems: reviewed and negative except above Subjective Pt awake and alert. No acute events. Vitals are stable. US abd shows gallbladder sludge, negative for gallstones or dilated ducts. DC planning. Objective Last 24 Hour Vital Signs Date Time Temp Pulse Resp B/P (MAP) Pulse Ox O2 Delivery O2 Flow Rate FiO2 12/09/17 16:36 97.6 91 20 133/69 (90) 100 97.6 12/09/17 12:00 97.7 92 20 128/81 (97) 100 97.7 12/09/17 08:59 86 136/78 12/09/17 08:58 136/78 12/09/17 08:53 98.2 12/09/17 08:14 Nasal Cannula 2.0 12/09/17 07:54 98.2 86 20 136/78 (97) 100 98.2 12/09/17 07:54 98.2 12/09/17 07:50 Room Air 12/09/17 07:50 86 18 Room Air 21 12/09/17 07:50 97 Room Air 12/09/17 04:00 98.0 78 18 139/78 (98) 97 98.0 12/09/17 00:00 98.1 80 18 125/61 (82) 100 98.1 12/08/17 21:34 98.0 87 20 129/73 (91) 97 98.0 12/08/17 21:00 Room Air 12/08/17 20:31 175/94 12/08/17 20:30 92 175/94 12/08/17 20:00 98.1 92 20 175/96 (122) 96 98.1 12/08/17 19:31 96 Room Air 12/08/17 19:31 Room Air 12/08/17 19:30 89 18 Room Air 21 Intake and Output 12/08/17 12/09/17 19:00 07:00 Intake Total 740 ml Balance 740 ml Intake Oral 740 ml # Voids 5 4 Laboratory Tests 12/09/17 06:19: White Blood Count 4.6L, Red Blood Count 2.66L, Hemoglobin 8.8L, Hematocrit 26.9L , Mean Corpuscular Volume 101H, Mean Corpuscular Hemoglobin 33.3H, Mean Corpuscular Hemoglobin Concent 32.9, Red Cell Distribution Width 18.7H, Platelet Count 62L, Mean Platelet Volume 10.7H, Neutrophils (%) (Auto) , Lymphocytes (%) (Auto) , Monocytes (%) (Auto) , Eosinophils (%) (Auto) , Basophils (%) (Auto) , Differential Total Cells Counted 100, Neutrophils % ( Manual) 60, Lymphocytes % (Manual) 20, Monocytes % (Manual) 17H, Eosinophils % ( Manual) 3, Basophils % (Manual) 0, Band Neutrophils 0, Platelet Estimate DecreasedL, Platelet Morphology Normal, Anisocytosis 2+, Macrocytosis 1+, Tear Drop Cells , Schistocytes 1+, Prothrombin Time 16.7H, Prothromb Time International Ratio 1.6H, Magnesium Level 1.7L, Heparin-PF4 Antibody Screen [ Pending] Height (Feet): 5 Height (Inches): 8.00 Weight (Pounds): 134 General Appearance: no apparent distress EENT: PERRL/EOMI Neck: normal alignment Cardiovascular: normal peripheral pulses Respiratory/Chest: no respiratory distress Abdomen: soft Anurag Salguero MD Dec 09, 2017 18:22
[2017-12-09 20:00] VITALS: BP 160/86
[2017-12-10 04:00] VITALS: BP 122/69
[2017-12-10] MEDS: NovoLOG Insulin Flexpen SUBQ SCH ×2 (06:30→11:30)
[2017-12-10 06:35] LABS: HEMATOCRIT 27.8 % (42.0-52.0); HEMOGLOBIN 9.1 G/DL (14.2-18.0); MEAN CORPUSCULAR VOLUME 101 FL (80-99); PLATELET COUNT 86 K/UL (150-450); RED BLOOD COUNT 2.77 M/UL (4.70-6.10); RED CELL DISTRIBUTION WIDTH 19.1 % (11.6-14.8); WHITE BLOOD COUNT 5.3 K/UL (4.8-10.8)
[2017-12-10 07:16] LABS: INR 1.6 (0.9-1.1)
[2017-12-10 08:00] VITALS: BP 149/76
[2017-12-10] MEDS: Advair 250/50 Inhaler - 14 dose INH SCH (09:00)
[2017-12-10] MEDS: Minoxidil 2.5mg tab ORAL SCH (09:36)
--- NOTE | 2017-12-10 10:52 | General Progress Note ---
Assessment/Plan Assessment/Plan COPD Exacerbation - Bronchdilators, add steroids Pneumonia - on IV Abx h/o PTE on Warfarin PTE - coumadinization Hypoglycemia - DC Glipizide Low platelates coincide with a dose of Heparin given 11/28 HIT??? m/p not. Low platelets are due to recent chemotherapy. Last dose given 11/25/17. Today plt up to 62K. Redose warfarin @ 10 mg. DW Rx. Dc home today. INR 1.6 Pt. will come to my office tomorrow to check INR. Subjective Allergies: Coded Allergies: BRITTANI INHIBITORS (Unverified Allergy, Unknown, 03/19/15) Subjective Less SOB + Non productive cough Objective Last 24 Hour Vital Signs Date Time Temp Pulse Resp B/P (MAP) Pulse Ox O2 Delivery O2 Flow Rate FiO2 12/10/17 09:37 Room Air 21 12/10/17 09:37 99 Room Air 21 12/10/17 09:36 149/76 12/10/17 09:36 90 18 Room Air 12/10/17 09:35 91 149/76 12/10/17 09:00 Room Air 12/10/17 08:00 98.6 91 20 149/76 (100) 100 98.6 12/10/17 04:00 99.0 88 17 122/69 (86) 99 99.0 12/09/17 21:36 89 160/86 12/09/17 21:35 160/86 12/09/17 21:00 Nasal Cannula 2.0 12/09/17 20:00 98.0 89 19 160/86 (110) 98 98.0 12/09/17 19:21 Room Air 12/09/17 19:20 97 Room Air 12/09/17 19:20 87 18 Room Air 21 12/09/17 16:36 97.6 91 20 133/69 (90) 100 97.6 12/09/17 12:00 97.7 92 20 128/81 (97) 100 97.7 Intake and Output 12/09/17 12/10/17 19:00 07:00 Intake Total 1160 ml 300 ml Output Total 250 ml 220 ml Balance 910 ml 80 ml Intake Oral 1160 ml 300 ml Output Urine Total 250 ml 220 ml # Voids 3 # Bowel Movements 1 1 Laboratory Tests 12/10/17 04:50: White Blood Count 5.3, Red Blood Count 2.77L, Hemoglobin 9.1L, Hematocrit 27.8L , Mean Corpuscular Volume 101H, Mean Corpuscular Hemoglobin 32.8H, Mean Corpuscular Hemoglobin Concent 32.6, Red Cell Distribution Width 19.1H, Platelet Count 86L, Mean Platelet Volume 9.4, Neutrophils (%) (Auto) , Lymphocytes (%) (Auto) , Monocytes (%) (Auto) , Eosinophils (%) (Auto) , Basophils (%) (Auto) , Differential Total Cells Counted 100, Neutrophils % ( Manual) 71, Lymphocytes % (Manual) 12L, Monocytes % (Manual) 16H, Eosinophils % (Manual) 1, Basophils % (Manual) 0, Band Neutrophils 0, Platelet Estimate DecreasedL, Platelet Morphology Normal, Hypochromasia 2+, Anisocytosis 2+, Macrocytosis 1+, Schistocytes Occasional, Prothrombin Time 16.5H, Prothromb Time International Ratio 1.6H Height (Feet): 5 Height (Inches): 8.00 Weight (Pounds): 134 Objective Cv RR Lungs B wheezes + ronchi Abd SNT. BS + E No CCE Harsh Maher MD Dec 10, 2017 10:52
[2017-12-10 12:00] VITALS: BP 149/69
[2017-12-10] MEDS ORDERED: NORMODYNE200 MG ORAL (12:01)
[2017-12-10] MEDS ORDERED: LABETALOL HCL200 MG ORAL (12:02)
[2017-12-10] MEDS ORDERED: MINOXIDIL2.5 MG PO (12:02)
[2017-12-10] MEDS ORDERED: NOVOLOG100 UNITS1 (12:03)
[2017-12-10] MEDS ORDERED: MIRTAZAPINE15 MG ORAL (12:04)
--- NOTE | 2017-12-10 12:50 | General Progress Note ---
Assessment/Plan Status: stable Assessment/Plan # Metastatic lung cancer. Getting triple combination chemotherapy, intermittent development of small right-sided pleural effusion. The patient has required thoracentesis in the past. --> Continue to closely monitor the patient's fluid status. --> thora for 12/03 when inr is better # Thrombocytopenia, likely due to recently administered chemotherapy. --> meds reviewed with pharmacy and mirtaazapine or labetolol are potential culprits but rarely implicated <1% --> peripheral smear to be reviewed --> 12/08 PLT trending downwards --> 12/10 PLT improving, trending upwards. --> US abd shows gallbladder sludge. Negative for gallstones or dilated ducts. # Anemia due to underlying chronic disease. --> Anemia w/u reviewed, will trend cbc daily --> Hgb goal >7 # Pulmonary embolism on CT, on anticoagulation on Coumadin. --> hold off coumadin until thora completed # Coagulopathy, likely due to underlying liver disease. --> inr stable 1.4-1.7 The time the note was entered does not necessarily correspond to the time the patient was seen. Subjective Date patient seen: Dec 10, 2017 ROS Limited/Unobtainable: Yes Hematologic/Lymphatic: Reports: anemia Allergies: Coded Allergies: BRITTANI INHIBITORS (Unverified Allergy, Unknown, 03/19/15) All Systems: reviewed and negative except above Subjective Pt awake and alert. No acute events. Noncompliant with some care. Plt count trending upwards. DC planning. Objective Last 24 Hour Vital Signs Date Time Temp Pulse Resp B/P (MAP) Pulse Ox O2 Delivery O2 Flow Rate FiO2 12/10/17 12:00 98.0 89 18 149/69 (95) 99 98.0 12/10/17 09:37 Room Air 21 12/10/17 09:37 99 Room Air 21 12/10/17 09:36 149/76 12/10/17 09:36 90 18 Room Air 21 12/10/17 09:35 91 149/76 12/10/17 09:00 Room Air 12/10/17 08:00 98.6 91 20 149/76 (100) 100 98.6 12/10/17 04:00 99.0 88 17 122/69 (86) 99 99.0 12/09/17 21:36 89 160/86 12/09/17 21:35 160/86 12/09/17 21:00 Nasal Cannula 2.0 12/09/17 20:00 98.0 89 19 160/86 (110) 98 98.0 12/09/17 19:21 Room Air 12/09/17 19:20 97 Room Air 12/09/17 19:20 87 18 Room Air 21 12/09/17 16:36 97.6 91 20 133/69 (90) 100 97.6 Intake and Output 12/09/17 12/10/17 19:00 07:00 Intake Total 1160 ml 300 ml Output Total 250 ml 220 ml Balance 910 ml 80 ml Intake Oral 1160 ml 300 ml Output Urine Total 250 ml 220 ml # Voids 3 # Bowel Movements 1 1 Laboratory Tests 12/10/17 04:50: White Blood Count 5.3, Red Blood Count 2.77L, Hemoglobin 9.1L, Hematocrit 27.8L , Mean Corpuscular Volume 101H, Mean Corpuscular Hemoglobin 32.8H, Mean Corpuscular Hemoglobin Concent 32.6, Red Cell Distribution Width 19.1H, Platelet Count 86L, Mean Platelet Volume 9.4, Neutrophils (%) (Auto) , Lymphocytes (%) (Auto) , Monocytes (%) (Auto) , Eosinophils (%) (Auto) , Basophils (%) (Auto) , Differential Total Cells Counted 100, Neutrophils % ( Manual) 71, Lymphocytes % (Manual) 12L, Monocytes % (Manual) 16H, Eosinophils % (Manual) 1, Basophils % (Manual) 0, Band Neutrophils 0, Platelet Estimate DecreasedL, Platelet Morphology Normal, Hypochromasia 2+, Anisocytosis 2+, Macrocytosis 1+, Schistocytes Occasional, Prothrombin Time 16.5H, Prothromb Time International Ratio 1.6H Height (Feet): 5 Height (Inches): 8.00 Weight (Pounds): 134 General Appearance: no apparent distress, alert EENT: PERRL/EOMI Neck: normal alignment Cardiovascular: normal peripheral pulses Respiratory/Chest: no respiratory distress Abdomen: soft Anurag Salguero MD Dec 10, 2017 12:50
--- NOTE | 2017-12-10 13:41 | General Progress Note ---
Assessment/Plan Status: stable, progressing Assessment/Plan mdd anxiety -remeron 15mg qhs -provided ro/st Subjective Date patient seen: Dec 10, 2017 Neurologic/Psychiatric: Reports: anxiety, depressed, emotional problems Allergies: Coded Allergies: BRITTANI INHIBITORS (Unverified Allergy, Unknown, 03/19/15) Subjective the pt thrombocytes improved Objective Last 24 Hour Vital Signs Date Time Temp Pulse Resp B/P (MAP) Pulse Ox O2 Delivery O2 Flow Rate FiO2 12/10/17 12:00 98.0 89 18 149/69 (95) 99 98.0 12/10/17 09:37 Room Air 21 12/10/17 09:37 99 Room Air 21 12/10/17 09:36 149/76 12/10/17 09:36 90 18 Room Air 21 12/10/17 09:35 91 149/76 12/10/17 09:00 Room Air 12/10/17 08:00 98.6 91 20 149/76 (100) 100 98.6 12/10/17 04:00 99.0 88 17 122/69 (86) 99 99.0 12/09/17 21:36 89 160/86 12/09/17 21:35 160/86 12/09/17 21:00 Nasal Cannula 2.0 12/09/17 20:00 98.0 89 19 160/86 (110) 98 98.0 12/09/17 19:21 Room Air 12/09/17 19:20 97 Room Air 12/09/17 19:20 87 18 Room Air 21 12/09/17 16:36 97.6 91 20 133/69 (90) 100 97.6 Intake and Output 12/09/17 12/10/17 19:00 07:00 Intake Total 1160 ml 300 ml Output Total 250 ml 220 ml Balance 910 ml 80 ml Intake Oral 1160 ml 300 ml Output Urine Total 250 ml 220 ml # Voids 3 # Bowel Movements 1 1 Laboratory Tests 12/10/17 04:50: White Blood Count 5.3, Red Blood Count 2.77L, Hemoglobin 9.1L, Hematocrit 27.8L , Mean Corpuscular Volume 101H, Mean Corpuscular Hemoglobin 32.8H, Mean Corpuscular Hemoglobin Concent 32.6, Red Cell Distribution Width 19.1H, Platelet Count 86L, Mean Platelet Volume 9.4, Neutrophils (%) (Auto) , Lymphocytes (%) (Auto) , Monocytes (%) (Auto) , Eosinophils (%) (Auto) , Basophils (%) (Auto) , Differential Total Cells Counted 100, Neutrophils % ( Manual) 71, Lymphocytes % (Manual) 12L, Monocytes % (Manual) 16H, Eosinophils % (Manual) 1, Basophils % (Manual) 0, Band Neutrophils 0, Platelet Estimate DecreasedL, Platelet Morphology Normal, Hypochromasia 2+, Anisocytosis 2+, Macrocytosis 1+, Schistocytes Occasional, Prothrombin Time 16.5H, Prothromb Time International Ratio 1.6H Height (Feet): 5 Height (Inches): 8.00 Weight (Pounds): 134 General Appearance: no apparent distress, alert Kai Norwood MD Dec 10, 2017 13:41
--- NOTE | 2017-12-11 13:54 | Discharge Summary ---
Discharge Summary Discharge Summary _ DATE OF ADMISSION: 11/27/2017 DATE OF DISCHARGE: 12/10/2017 CONSULTANTS: Dr. Albino Norwood BRIEF HOSPITAL COURSE: Patient is a 67-year-old -[place] male, who was just discharged for COPD exacerbation and pleural effusion, and underwent thoracenteses. He presented to ED via EMS for acute onset of shortness of breath with exertion, and increasing cough. Per EMS report he was hypoxic. On arrival to ED, he had decreased breath sounds with use of accessory muscles of respiration. Chest x-ray showed right lung infiltrates and small right pleural effusion. He was given nebulizer treatment and was started on IV antibiotics. He was admitted to telemetry for evaluation of COPD exacerbation. He was followed by pest control service technician. He was started on IV Solu-Medrol. He was given respiratory treatments. He had elevated blood pressure and was given minoxidil, and nifedipine. He was given IV diuresis and IV cefepime. He has history of metastatic lung CA and is on combination chemotherapy. He has history of pulmonary embolism and was continued on Coumadin. He had thrombocytopenia possibly medication induced. Abdominal ultrasound showed unremarkable spleen. Platelet counts eventually improved. He had episodes of anxiety and was not eating or sleeping. He was given Remeron. Coumadin was temporarily placed on hold for possible thoracentesis. Follow-up chest x-ray showed small pleural effusion no need to tap. Coumadin was resumed. IV steroids were tapered. He had good blood pressure control. He was breathing better. He was eventually discharged home. FINAL DIAGNOSES: Acute COPD exacerbation Pneumonia Metastatic lung CA History of PE on warfarin Hypoglycemia Thrombocytopenia Anxiety disorder Major depressive disorder Pleural effusion Anemia due to underlying chronic disease Coagulopathy likely due to liver disease DISPOSITION: Patient was discharged home. DISCHARGE MEDICATIONS: Refer to Discharge Medication List. DISCHARGE INSTRUCTIONS: Follow up with PCP in a week. I have been assigned to dictate discharge summary on this account, and I was not involved in the patient's management. Patricia Mcelroy NP Dec 11, 2017 13:54
== END 2017-12-10 12:55 | disposition home or self-care (01) | DRG 140 ==
LOC: EDBD 03:28 → EMR 03:35 → 2E 05:35 → EDBEDREQ 05:59 → 2E 10:20 → 3E 12-06 16:11
DX: J44.1 Chronic obstructive pulmonary disease with (acute) exacerbation (principal); J18.9 Pneumonia, unspecified organism; D68.4 Acquired coagulation factor deficiency; C78.00 Secondary malignant neoplasm of unspecified lung; D69.59 Other secondary thrombocytopenia; I50.9 Heart failure, unspecified; D63.8 Anemia in other chronic diseases classified elsewhere; E11.9 Type 2 diabetes mellitus without complications; T45.1X5A Adverse effect of antineoplastic and immunosuppressive drugs, initial encounter; E16.2 Hypoglycemia, unspecified; F32.9 Major depressive disorder, single episode, unspecified; Z86.711 Personal history of pulmonary embolism; Z79.01 Long term (current) use of anticoagulants; F41.9 Anxiety disorder, unspecified; I11.9 Hypertensive heart disease without heart failure; Z88.8 Allergy status to other drugs, medicaments and biological substances; R09.02 Hypoxemia; Z79.899 Other long term (current) drug therapy; Z85.038 Personal history of other malignant neoplasm of large intestine; I25.10 Atherosclerotic heart disease of native coronary artery without angina pectoris
CPT/HCPCS: 36415; 36600; 71045; 71046; 76700; 80048; 80053; 80307; 81003; 82550; 82553; 82803; 82962; 83735; 83880; 84484; 85007; 85025; 85610; 85730; 86703; 86705; 86709; 86803; 87081; 87340; 93005; 94640; 94664; 94760; 99285; J1815; J7620

== ENCOUNTER 2018-01-27 17:02 | Emergency (ER) | payer MEDICARE, MEDICAID ==
[~2018-01-27] VITALS: Ht 175.3 cm; Wt 68.0 kg
[~2018-01-27 17:02] MED LIST changes: +LABETALOL HCL200 MG ORAL; +MINOXIDIL2.5 MG PO; +MIRTAZAPINE15 MG ORAL; +NORMODYNE200 MG ORAL; +NOVOLOG100 UNITS1
[2018-01-27 17:20] VITALS: BP 131/69
[2018-01-27 17:32] LABS: BASOPHILS % (AUTO) 1.4 % (0.0-2.0); EOSINOPHILS % (AUTO) 0.2 % (0.0-3.0); HEMATOCRIT 31.8 % (42.0-52.0); HEMOGLOBIN 10.7 G/DL (14.2-18.0); LYMPHOCYTES % (AUTO) 7.8 % (20.0-45.0); MEAN CORPUSCULAR VOLUME 103 FL (80-99); MONOCYTES % (AUTO) 11.8 % (1.0-10.0); NEUTROPHILS % (AUTO) 78.8 % (45.0-75.0); PLATELET COUNT 118 K/UL (150-450); RED BLOOD COUNT 3.08 M/UL (4.70-6.10); RED CELL DISTRIBUTION WIDTH 20.5 % (11.6-14.8); WHITE BLOOD COUNT 9.1 K/UL (4.8-10.8)
[2018-01-27 17:46] LABS: ANION GAP 9 mmol/L (5-15); BLOOD UREA NITROGEN 29 mg/dL (7-18); CALCIUM 8.3 MG/DL (8.5-10.1); CARBON DIOXIDE 28 MMOL/L (21-32); CHLORIDE 107 MMOL/L (98-107); CREATININE 1.7 MG/DL (0.55-1.30); SODIUM 144 MMOL/L (136-145)
[2018-01-27 17:49] LABS: INR 1.8 (0.9-1.1)
[2018-01-27 17:59] LABS: ALANINE AMINOTRANSFERASE 38 U/L (12-78); ALBUMIN 2.7 G/DL (3.4-5.0); ALBUMIN/GLOBULIN RATIO 0.7 (1.0-2.7); ALKALINE PHOSPHATASE 91 U/L (46-116); ASPARTATE AMINO TRANSFERASE 36 U/L (15-37); BILIRUBIN,TOTAL 0.6 MG/DL (0.2-1.0); CKMB 1.7 NG/ML (0.0-3.6); CREATINE KINASE 228 U/L (26-308)
[2018-01-27 18:20] VITALS: BP 131/72
[2018-01-27] MEDS ORDERED: CARVEDILOL12.5 MG ORAL (18:37)
[2018-01-27] MEDS ORDERED: BRILINTA90 MG PO (18:37)
[2018-01-27] MEDS ORDERED: ATORVASTATIN CA40 MG ORAL (18:37)
[2018-01-27] MEDS ORDERED: ASPIRIN EC81 MG ORAL (18:37)
[2018-01-27] MEDS ORDERED: ALLOPURINOL100 M1 ORAL (18:37)
[2018-01-27] MEDS ORDERED: HYDROCODON-ACE1 EA13 ORAL (18:37)
[2018-01-27] MEDS ORDERED: HYDROCHLOROTHIA25 MG ORAL (18:37)
[2018-01-27] MEDS ORDERED: WARFARIN SODIUM10 MG ORAL (18:37)
[2018-01-27] MEDS ORDERED: DIPHENHYDRAMINE25 M1 ORAL (18:37)
[2018-01-27] MEDS ORDERED: HYDRALAZINE HC100 MG ORAL (18:37)
[2018-01-27] MEDS ORDERED: PANTOPRAZOLE SO40 MG ORAL (18:37)
[2018-01-27] MEDS ORDERED: NITROSTAT0.4 M1 SL (18:37)
[2018-01-27] MEDS ORDERED: VITAMIN D1000 UNI1 ORAL (18:37)
[2018-01-27] MEDS ORDERED: CATAPRES0.2 MG ORAL (18:37)
[2018-01-27] MEDS ORDERED: GLIPIZIDE5 MG ORAL (18:37)
[2018-01-27] MEDS ORDERED: ADVAIR 250-501 EACH INH (18:37)
[2018-01-27] MEDS: Ipratropium 0.02% Inh Soln 2.5ml UD HHN SCH ×2 (18:46→19:02)
[2018-01-27] MEDS: Levalbuterol Inh UD 1.25mg/0.5ml HHN SCH ×5 (18:46→22:38)
[2018-01-27 21:00] VITALS: BP 151/98
[2018-01-27] MEDS ORDERED: Ipratropium 0.02% Inh Soln 2.5ml UD HHN ONE (22:00)
[2018-01-27] MEDS ORDERED: Levalbuterol Inh UD 1.25mg/0.5ml HHN ONE (22:00)
--- NOTE | 2018-01-27 22:48 | Emergency Room Report ---
History of Present Illness General Chief Complaint: Dyspnea/Respdistress Source: EMS Present Illness HPI 67-year-old male presents ED for evaluation. Patient coming in with shortness of breath from home. Started on Thursday. History of COPD and CHF. History of lung cancer. Denies chest pain. Denies fevers or chills. Denies cough. No other aggravating relieving factors. Denies any other associated symptoms Allergies: Coded Allergies: BRITTANI INHIBITORS (Unverified Allergy, Unknown, 03/19/15) Patient History Past Medical History: DM, HTN, COPD, other - lung cancer Past Surgical History: none Pertinent Family History: none Social History: Denies: smoking, alcohol use, drug use Immunizations: UTD Reviewed Nursing Documentation: PMH: Agreed; PSxH: Agreed Nursing Documentation-PMH Hx Cardiac Problems: Yes - stroke, cardiac stent, Hx Hypertension: Yes Hx Pacemaker: No Hx COPD: Yes Hx Diabetes: Yes Hx Cancer: Yes - lung cancer stage 4 Hx Gastrointestinal Problems: No Hx Dialysis: No Hx Neurological Problems: No Hx Cerebrovascular Accident: Yes - 06/2016 Hx Seizures: No Review of Systems All Other Systems: negative except mentioned in HPI Physical Exam Vital Signs Date Time Temp Pulse Resp B/P (MAP) Pulse Ox O2 Delivery O2 Flow Rate FiO2 01/27/18 16:48 97.9 120 20 147/74 98 Nasal Cannula 2.0 97.9 01/27/18 18:30 28 Sp02 EP Interpretation: reviewed, normal General Appearance: no apparent distress, alert, GCS 15, non-toxic Head: normocephalic, atraumatic Eyes: bilateral eye normal inspection, bilateral eye PERRL ENT: hearing grossly normal, normal pharynx, no angioedema, normal voice Neck: full range of motion, supple/symm/no masses Respiratory: chest non-tender, decreased breath sounds, speaking full sentences Cardiovascular #1: no edema, tachycardia Cardiovascular #2: 2+ carotid (R), 2+ carotid (L), 2+ radial (R), 2+ radial (L) , 2+ dorsalis pedis (R), 2+ dorsalis pedis (L) Gastrointestinal: normal bowel sounds, non tender, soft, non-distended, no guarding, no rebound Rectal: deferred Genitourinary: normal inspection, no CVA tenderness Musculoskeletal: back normal, gait/station normal, normal range of motion, non- tender Neurologic: alert, oriented x3, responsive, motor strength/tone normal, sensory intact, speech normal Psychiatric: judgement/insight normal, memory normal, mood/affect normal, no suicidal/homicidal ideation Reflexes: 3+ bicep (R), 3+ bicep (L), 3+ tricep (R), 3+ tricep (L), 3+ knee (R) , 3+ knee (L) Skin: normal color, no rash, warm/dry, well hydrated Lymphatic: no adenopathy Medical Decision Making Diagnostic Impression: Primary Impression: CHF (congestive heart failure) Qualified Codes: I50.9 - Heart failure, unspecified Additional Impressions: COPD (chronic obstructive pulmonary disease) Qualified Codes: J44.9 - Chronic obstructive pulmonary disease, unspecified Respiratory distress Renal insufficiency ER Course Hospital Course 67-year-old male presents ED complaining of shortness of breath, Differential diagnoses include: WI/unstable angina, contusion, muscle strain, PTX, rib fracture Clinical course Patient placed on stretcher. on cardiac catheterization technician. After initial history and physical I ordered labs, EKG, chest x-ray, Nebs labs reviewed- no leukocytosis, hemoglobin/hematocrit stable, creatinine elevated, troponins 0.076, BNP greater than 7000 EKG - sinus tachycardia, PVCS noted Chest x-ray- no acute process Patient remained short of breath. Given additional breathing treatments. ABG shows no significant hypoxia or hypercapnia. Tachycardia slowly resolving with IV fluids. because of insurance patient will be transferred I. I feel this is a highly complex case requiring extensive working including EKG/Rhythm strip, Xray/CT/US, Blood/urine lab work, repeat exams while in ED, and administration of strong opiates/narcotics for pain control, admission to hospital or close patient follow up. Diagnosis - CHF exacerbation, COPD, respiratory distress, renal insufficiency transferred in serious condition Labs Test 01/27/18 17:26 01/27/18 21:57 White Blood Count 9.1 K/UL (4.8-10.8) Red Blood Count 3.08 M/UL (4.70-6.10) Hemoglobin 10.7 G/DL (14.2-18.0) Hematocrit 31.8 % (42.0-52.0) Mean Corpuscular Volume 103 FL (80-99) Mean Corpuscular Hemoglobin 34.8 PG (27.0-31.0) Mean Corpuscular Hemoglobin Concent 33.8 G/DL (32.0-36.0) Red Cell Distribution Width 20.5 % (11.6-14.8) Platelet Count 118 K/UL (150-450) Mean Platelet Volume 9.7 FL (6.5-10.1) Neutrophils (%) (Auto) 78.8 % (45.0-75.0) Lymphocytes (%) (Auto) 7.8 % (20.0-45.0) Monocytes (%) (Auto) 11.8 % (1.0-10.0) Eosinophils (%) (Auto) 0.2 % (0.0-3.0) Basophils (%) (Auto) 1.4 % (0.0-2.0) Prothrombin Time 18.0 SEC (9.30-11.50) Prothromb Time International Ratio 1.8 (0.9-1.1) Activated Partial Thromboplast Time 35 SEC (23-33) Sodium Level 144 MMOL/L (136-145) Potassium Level 4.0 MMOL/L (3.5-5.1) Chloride Level 107 MMOL/L (98-107) Carbon Dioxide Level 28 MMOL/L (21-32) Anion Gap 9 mmol/L (5-15) Blood Urea Nitrogen 29 mg/dL (7-18) Creatinine 1.7 MG/DL (0.55-1.30) Estimat Glomerular Filtration Rate 49.0 mL/min (>60) Glucose Level 140 MG/DL (74-106) Calcium Level 8.3 MG/DL (8.5-10.1) Total Bilirubin 0.6 MG/DL (0.2-1.0) Aspartate Amino Transf (AST/SGOT) 36 U/L (15-37) Alanine Aminotransferase (ALT/SGPT) 38 U/L (12-78) Alkaline Phosphatase 91 U/L (46-116) Total Creatine Kinase 228 U/L (26-308) Creatine Kinase MB 1.7 NG/ML (0.0-3.6) Creatine Kinase MB Relative Index 0.7 Troponin I 0.076 ng/mL (0.000-0.056) Pro-B-Type Natriuretic Peptide 7192 pg/mL (0-125) Total Protein 6.7 G/DL (6.4-8.2) Albumin 2.7 G/DL (3.4-5.0) Globulin 4.0 g/dL Albumin/Globulin Ratio 0.7 (1.0-2.7) Arterial Blood pH 7.444 (7.350-7.450) Arterial Blood Partial Pressure CO2 33.0 mmHg (35.0-45.0) Arterial Blood Partial Pressure O2 132.5 mmHg (75.0-100.0) Arterial Blood HCO3 22.1 mmol/L (22.0-26.0) Arterial Blood Oxygen Saturation 98.2 % (92.0-98.0) Arterial Blood Base Excess -1.5 Bry Test Positive EKG Diagnostic Results Rate: tachycardiac Rhythm: NSR ST Segments: no acute changes ASA given to the pt in ED: No Rhythm Strip Diag. Results EP Interpretation: yes Rhythm: NSR, other - PVCs Chest X-Ray Diagnostic Results Chest X-Ray Diagnostic Results : Chest X-Ray Ordered: Yes # of Views/Limited/Complete: 1 View Indication: Shortness of Breath EP Interpretation: Yes Interpretation: no consolidation, no effusion, no pneumothorax, no acute cardiopulmonary disease Impression: No acute disease Electronically Signed by: Electronically signed by Gustavo Brenner MD Last Vital Signs Date Time Temp Pulse Resp B/P (MAP) Pulse Ox O2 Delivery O2 Flow Rate FiO2 01/27/18 22:38 119 20 100 Nasal Cannula 2.0 28 01/27/18 21:00 151/98 01/27/18 17:20 98.1 98.1 Status: improved Disposition: XFER T-ON LICENSE OF [facility] Condition: Serious Referrals: NOT CHOSEN IPA/,REFERRING (PCP) Gustavo Brenner MD Jan 27, 2018 22:48
[2018-01-27 23:11] VITALS: BP 147/96
--- NOTE | 2018-01-28 08:34 | Diagnostic Imaging Report ---
Indication: Shortness of breath Technique: One view of the chest Comparison: 11/29/2017 Findings: Again demonstrated is a right pleural effusion, which appears smaller than on the prior study. Previously demonstrated left pleural effusion is no longer evident. Previously demonstrated interstitial congestion is no longer evident. Impression: Right pleural effusion, decreased in size from prior study of 11/29/2017
--- NOTE | 2018-01-31 16:02 | Cardiology Report ---
APPROVED REPORT EKG Measurement Heart [id number] VA [id number] Sinus tachycardia with premature atrial complexes with aberrant conduction Possible Left atrial enlargement Rightward axis Anteroseptal infarct, age undetermined Abnormal ECG
--- NOTE | 2018-01-31 16:03 | Cardiology Report ---
APPROVED REPORT EKG Measurement Heart [id number] MT [id number] Sinus tachycardia with premature atrial complexes Possible Left atrial enlargement Anteroseptal infarct, age undetermined Abnormal ECG
== END 2018-01-27 23:11 | disposition short-term general hospital (02) ==
LOC: EDBD 17:02 → EMR 18:25
DX: I11.0 Hypertensive heart disease with heart failure (principal); I50.9 Heart failure, unspecified; J44.9 Chronic obstructive pulmonary disease, unspecified; N28.9 Disorder of kidney and ureter, unspecified; E11.9 Type 2 diabetes mellitus without complications; Z85.118 Personal history of other malignant neoplasm of bronchus and lung; Z86.73 Personal history of transient ischemic attack (TIA), and cerebral infarction without residual deficits; Z95.5 Presence of coronary angioplasty implant and graft
CPT/HCPCS: 36415; 36600; 71045; 80053; 82550; 82553; 82803; 82962; 83880; 84484; 85025; 85610; 85730; 86850; 86900; 86901; 87081; 93005; 94640; 94664; 96360; 99284; J7644

== ENCOUNTER 2019-05-01 21:26 | Inpatient (IN) | payer MEDICARE, MEDICAID ==
[~2019-05-01] VITALS: Ht 167.6 cm; Wt 64.1 kg
--- NOTE | 2019-05-01 21:27 | NUR ---
ED Nurse Note: pt presents to ED via EMS arrival RA 68 for SOB x 2 days. per pt he has been short of breath and has had a productive cough x 2 days. pt states that phlegm comes up when he coughs. pt states that he is on oxygen at home. per pt, he was seen at [facility] a week ago and there was fluid in his lungs, but not enough to drain. pt came in with a non-rebreather mask 15 L of O2 with SpO2 of 100%
[2019-05-01 21:34] VITALS: BP 147/81
--- NOTE | 2019-05-01 21:40 | Emergency Room Report ---
History of Present Illness General Chief Complaint: Dyspnea/Respdistress Source: Patient Present Illness HPI Disclaimer: Please note that this report is being documented using [employer] technology. This can lead to erroneous entry secondary to incorrect interpretation by the dictating instrument. HPI: 69-year-old male presents for evaluation of shortness of breath. He has a history of COPD, CHF on 2 L at home, stroke, [place] status post stenting, small cell lung cancer currently undergoing chemotherapy with recurrent pleural effusions. States he got to the hospital at [facility] [place] 1 [place] ago where he had small effusions in his lungs. Worsening shortness of breath for 1 day. Continues to smoke. Denies fevers. Has a worsening cough. Denies lower extremity edema. PMH: Small cell lung cancer, CAD, COPD, CHF PSH: Multiple stents, thoracenteses Allergies: BRITTANI inhibitor Social Hx: Current smoker Allergies: Coded Allergies: BRITTANI INHIBITORS (Unverified Allergy, Unknown, 03/19/15) Nursing Documentation-PMH Hx Cardiac Problems: Yes - stroke, cardiac stent, Hx Hypertension: Yes Hx Pacemaker: No Hx COPD: Yes Hx Diabetes: Yes Hx Cancer: Yes - lung cancer stage 4 Hx Gastrointestinal Problems: No Hx Dialysis: No Hx Neurological Problems: No Hx Cerebrovascular Accident: Yes - 06/2016 Hx Seizures: No Review of Systems All Other Systems: negative except mentioned in HPI Physical Exam Vital Signs Date Time Temp Pulse Resp B/P (MAP) Pulse Ox O2 Delivery O2 Flow Rate FiO2 05/01/19 21:19 98.2 110 20 147/81 (103) 98 Non-Rebreather General: Awake and alert, mild distress HEENT: NC/AT. EOMI. Neck: Supple, trachea midline Chest Wall: No tenderness, no deformity Cardiovascular: Tachycardic. S1 and S2 normal. No murmur appreciated Resp: Arrives with nonrebreather. Tachypneic. Intermittent cough. No wheezing. Trace crackles. Abdomen: Abdomen is soft, nondistended. Nontender Skin: Intact. No abrasions, laceration or rash over the exposed skin MSK: Normal tone and bulk. Moving all extremities. No obvious deformity. No lower extremity edema. Neuro: Awake and alert. Mentating appropriately. Medical Decision Making Diagnostic Impression: Primary Impression: Pleural effusion Additional Impression: Renal insufficiency ER Course 69-year-old male history of small cell lung cancer and recurrent pleural effusions presents for evaluation of worsening shortness of breath and cough. Differential includes was not limited to pneumonia, bronchitis, URI, pleural effusion, CHF exacerbation, COPD exacerbation. He arrives saturating 100% on nonrebreather though is tachycardic and tachypneic. Start broad metabolic infectious work-up with EKG, chest x-ray, labs. Breathing treatments ordered. Likely require admission. Laboratory Tests Test 05/01/19 21:42 White Blood Count 10.5 K/UL (4.8-10.8) Red Blood Count 3.74 M/UL (4.70-6.10) L Hemoglobin 10.4 G/DL (14.2-18.0) L Hematocrit 33.3 % (42.0-52.0) L Mean Corpuscular Volume 89 FL (80-99) Mean Corpuscular Hemoglobin 27.8 PG (27.0-31.0) Mean Corpuscular Hemoglobin Concent 31.2 G/DL (32.0-36.0) L Red Cell Distribution Width 18.4 % (11.6-14.8) H Platelet Count 179 K/UL (150-450) Mean Platelet Volume 5.8 FL (6.5-10.1) L Neutrophils (%) (Auto) % (45.0-75.0) Lymphocytes (%) (Auto) % (20.0-45.0) Monocytes (%) (Auto) % (1.0-10.0) Eosinophils (%) (Auto) % (0.0-3.0) Basophils (%) (Auto) % (0.0-2.0) Neutrophils % (Manual) Pending Lymphocytes % (Manual) Pending Platelet Estimate Pending Platelet Morphology Pending Sodium Level 138 MMOL/L (136-145) Potassium Level 4.9 MMOL/L (3.5-5.1) Chloride Level 103 MMOL/L (98-107) Carbon Dioxide Level 25 MMOL/L (21-32) Anion Gap 10 mmol/L (5-15) Blood Urea Nitrogen 27 mg/dL (7-18) H Creatinine 1.7 MG/DL (0.55-1.30) H Estimate Glomerular Filtration Rate 48.7 mL/min (>60) Glucose Level 115 MG/DL (74-106) H Calcium Level 9.1 MG/DL (8.5-10.1) Total Bilirubin 1.1 MG/DL (0.2-1.0) H Direct Bilirubin 0.2 MG/DL (0.0-0.3) Aspartate Amino Transferase (AST) 28 U/L (15-37) Alanine Aminotransferase (ALT) 12 U/L (12-78) Alkaline Phosphatase 83 U/L (46-116) Troponin I 0.008 ng/mL (0.000-0.056) Pro-B-Type Natriuretic Peptide 1475 pg/mL (0-125) H Total Protein 7.8 G/DL (6.4-8.2) Albumin 3.0 G/DL (3.4-5.0) L Globulin 4.8 g/dL Albumin/Globulin Ratio 0.6 (1.0-2.7) L EKG Diagnostic Results EKG Time: 22:00 Rate: tachycardiac Rhythm: NSR ST Segments: no acute changes Other Impression Sinus tachycardia, few PACs, normal axis, normal intervals, no ST segment changes. Rhythm Strip Diag. Results Rhythm Strip Time: 22:00 EP Interpretation: yes Rate: 100s Rhythm: NSR, no PVC's, other - Occasional PACs Chest X-Ray Diagnostic Results Chest X-Ray Diagnostic Results : Chest X-Ray Ordered: Yes # of Views/Limited/Complete: 1 View Indication: Shortness of Breath Interpretation: other - Large right-sided pleural effusion Impression: Other - Right-sided pleural effusion Electronically Signed by: Electronically signed by Dr. Singh Grissom Reevaluation Time: 22:46 Last Vital Signs Date Time Temp Pulse Resp B/P (MAP) Pulse Ox O2 Delivery O2 Flow Rate FiO2 05/01/19 21:34 110 20 Non-Rebreather 05/01/19 21:34 98.2 147/81 98 Reevaluation Impression Labs show no white count, baseline chronic anemia. Signs of renal insufficiency with a creatinine of 1.7 and BUN of 27. Troponin is negative. Peptide elevated at 1400. Chest x-ray shows moderate to large right-sided pleural effusion. The patient is doing well on nasal cannula now. His heart rate has normalized and remains 97%. He will require admission. I discussed with his primary care physician, Dr. Jona Salguero who wanted him admitted to Dr. Anurag Salguero and Dr. Marquez. Disposition: ADMITTED INPATIENT Condition: Serious Singh Grissom MD May 01, 2019 21:40
[2019-05-01] MEDS ORDERED: Albuterol ud Inhalation HHN ONE (21:45)
[2019-05-01] MEDS ORDERED: Ipratropium 0.02% Inh Soln 2.5ml UD HHN ONE (21:45)
[2019-05-01 22:05] LABS: ANION GAP 10 mmol/L (5-15); BLOOD UREA NITROGEN 27 mg/dL (7-18); CALCIUM 9.1 MG/DL (8.5-10.1); CARBON DIOXIDE 25 MMOL/L (21-32); CHLORIDE 103 MMOL/L (98-107); CREATININE 1.7 MG/DL (0.55-1.30); POTASSIUM 4.9 MMOL/L (3.5-5.1); SODIUM 138 MMOL/L (136-145)
[2019-05-01 22:12] LABS: HEMATOCRIT 33.3 % (42.0-52.0); HEMOGLOBIN 10.4 G/DL (14.2-18.0); MEAN CORPUSCULAR VOLUME 89 FL (80-99); PLATELET COUNT 179 K/UL (150-450); RED BLOOD COUNT 3.74 M/UL (4.70-6.10); RED CELL DISTRIBUTION WIDTH 18.4 % (11.6-14.8); WHITE BLOOD COUNT 10.5 K/UL (4.8-10.8)
[2019-05-01] MEDS ORDERED: Benzonatate 100mg Perles ORAL ONE (22:15)
[2019-05-01 22:16] LABS: ALANINE AMINOTRANSFERASE 12 U/L (12-78); ALBUMIN/GLOBULIN RATIO 0.6 (1.0-2.7); ALKALINE PHOSPHATASE 83 U/L (46-116); ASPARTATE AMINO TRANSFERASE 28 U/L (15-37); BILIRUBIN,TOTAL 1.1 MG/DL (0.2-1.0)
[2019-05-01 22:18] LABS: BILIRUBIN,DIRECT 0.2 MG/DL (0.0-0.3)
--- NOTE | 2019-05-01 23:45 | NUR ---
ED Nurse Note: pt requesting food, given a sandwich and 2 juices. he finished both, does not appear to be in any distress at this time. he is on 3L nasal cannula, SpO2 is 99%
--- NOTE | 2019-05-02 | NUR ---
NURSE NOTES: Received admissions orders at this time from Doctor Marquez. Nursing Sunglass Clip Attacher Elver present also. Orders read back and confirmed by .
[2019-05-02 00:28] VITALS: BP 103/69
--- NOTE | 2019-05-02 00:51 | NUR ---
ED Nurse Note: per request of admitting nurse, will call back in 10 minutes to give report
--- NOTE | 2019-05-02 01:08 | NUR ---
Report from Odette RUST. They will transport patient up now
--- NOTE | 2019-05-02 01:10 | NUR ---
TRANSFER TO FLOOR: Patient transferred to as ordered, per FINESSE Grissom. Report given to YOCASTA Foster . Belongings sent with pt.
[2019-05-02 04:00] VITALS: BP 130/66
[2019-05-02] MEDS ORDERED: Albuterol/Ipratropium 3ml neb HHN PRN (06:15)
[2019-05-02] MEDS ORDERED: Promethazine/Codeine 5ml UD ORAL PRN (06:15)
--- NOTE | 2019-05-02 06:42 | Pulmonology Progress Note ---
Assessment/Plan Assessment/Plan Pulmonary Consultation HPI Patient is a : 69-year-old man with history of Congestive Heart Failure, Coronary Artery Disease, Previous ID/stents, Hypertension, Chronic Obstructive Pulmonary Disease, Previous Cerebro Vascular Accident, Diabetes, admitted with worsening shortness of breath, cough. He is on 2 L home oxygen, coumadin, on chemotherapy for small cell lung cancer, has history of recurrent pleural effusions. Ongoing smoking history. Denies fevers. Denies lower extremity edema. Noted to have elevated NPA 1400, large right pleural effusion PMH: Congestive Heart Failure, Coronary Artery Disease, Previous ID/stents, Hypertension, Chronic Obstructive Pulmonary Disease, Previous Cerebro Vascular Accident, Diabetes, Metastatic Small Cell Lung Cancer PSH: Multiple stents, thoracenteses Allergies: BRITTANI inhibitor Social Hx: Current smoker Allergies: BRITTANI INHIBITORS All Other Systems: negative except mentioned in HPI Physical Exam Vital Signs Noted Date Time Temp Pulse Resp B/P (MAP) Pulse Ox O2 Delivery O2 Flow Rate FiO2 05/01/19 21:19 98.2 110 20 147/81 (103) 98 Non-Rebreather General: Awake and alert HEENT: NCAT. EOMI, moist mm Neck: Supple, trachea midline Chest Wall: No tenderness, no deformity Cardiovascular: Tachycardic. S1 and S2 normal. No murmur appreciated Resp: Arrives with nonrebreather. No wheezing. Trace crackles. Reduced BS RLZ Abdomen: Abdomen is soft, nondistended. Nontender Skin: Intact. No abrasions, laceration or rash over the exposed skin Extremities: Normal tone and bulk. Moving all extremities. No obvious deformity. No lower extremity edema. Neuro: Awake and alert. Mentating appropriately. Impression: Shortness of breath Recurrent pleural effusion Renal insufficiency Congestive Heart Failure Coronary Artery Disease Previous ID/stents Hypertension Chronic Obstructive Pulmonary Disease Previous Cerebro Vascular Accident Diabetes Metastatic Small Cell Lung Cancer Plan - O2 PRN - HHN - Hold Coumadin, check coags - Thoracentesis with labs ordered per IR - DEVELOPMENT CONSULTANT Meds - Diuresis PRN - Monitor labs - PPX Laboratory Tests Test 05/01/19 21:42 White Blood Count 10.5 K/UL (4.8-10.8) Red Blood Count 3.74 M/UL (4.70-6.10) L Hemoglobin 10.4 G/DL (14.2-18.0) L Hematocrit 33.3 % (42.0-52.0) L Mean Corpuscular Volume 89 FL (80-99) Mean Corpuscular Hemoglobin 27.8 PG (27.0-31.0) Mean Corpuscular Hemoglobin Concent 31.2 G/DL (32.0-36.0) L Red Cell Distribution Width 18.4 % (11.6-14.8) H Platelet Count 179 K/UL (150-450) Mean Platelet Volume 5.8 FL (6.5-10.1) L Neutrophils (%) (Auto) % (45.0-75.0) Lymphocytes (%) (Auto) % (20.0-45.0) Monocytes (%) (Auto) % (1.0-10.0) Eosinophils (%) (Auto) % (0.0-3.0) Basophils (%) (Auto) % (0.0-2.0) Neutrophils % (Manual) Pending Lymphocytes % (Manual) Pending Platelet Estimate Pending Platelet Morphology Pending Sodium Level 138 MMOL/L (136-145) Potassium Level 4.9 MMOL/L (3.5-5.1) Chloride Level 103 MMOL/L (98-107) Carbon Dioxide Level 25 MMOL/L (21-32) Anion Gap 10 mmol/L (5-15) Blood Urea Nitrogen 27 mg/dL (7-18) H Creatinine 1.7 MG/DL (0.55-1.30) H Estimate Glomerular Filtration Rate 48.7 mL/min (>60) Glucose Level 115 MG/DL (74-106) H Calcium Level 9.1 MG/DL (8.5-10.1) Total Bilirubin 1.1 MG/DL (0.2-1.0) H Direct Bilirubin 0.2 MG/DL (0.0-0.3) Aspartate Amino Transferase (AST) 28 U/L (15-37) Alanine Aminotransferase (ALT) 12 U/L (12-78) Alkaline Phosphatase 83 U/L (46-116) Troponin I 0.008 ng/mL (0.000-0.056) Pro-B-Type Natriuretic Peptide 1475 pg/mL (0-125) H Total Protein 7.8 G/DL (6.4-8.2) Albumin 3.0 G/DL (3.4-5.0) L Globulin 4.8 g/dL Albumin/Globulin Ratio 0.6 (1.0-2.7) L EKG Time: Rate: tachycardiac Rhythm: NSR ST Segments: no acute changes Other Impression Sinus tachycardia, few PACs, normal axis, normal intervals, no ST segment changes. Chest X-Ray: Large right-sided pleural effusion Subjective ROS Limited/Unobtainable: No Allergies: Coded Allergies: BRITTANI INHIBITORS (Unverified Allergy, Unknown, 03/19/15) Objective Last 24 Hour Vital Signs Date Time Temp Pulse Resp B/P (MAP) Pulse Ox O2 Delivery O2 Flow Rate FiO2 05/02/19 04:00 98.1 130/66 (87) 05/02/19 04:00 108 05/02/19 02:36 Nasal Cannula 3.0 05/02/19 01:10 105 25 124/85 100 Nasal Cannula 3.0 05/02/19 00:28 116 27 103/69 97 Nasal Cannula 3.0 05/01/19 21:57 114 31 100 Nasal Cannula 3.0 32 05/01/19 21:42 110 30 100 Non-Rebreather 15.0 100 05/01/19 21:40 113 32 100 Non-Rebreather 15.0 100 05/01/19 21:34 110 20 Non-Rebreather 05/01/19 21:34 98.2 89 20 147/81 98 Non-Rebreather 05/01/19 21:19 98.2 110 20 147/81 (103) 98 Non-Rebreather Intake and Output 05/01/19 05/02/19 19:00 07:00 Intake Total 300 ml Output Total 250 ml Balance 50 ml Intake Oral 300 ml Output Urine Total 250 ml Laboratory Tests 05/01/19 21:42: White Blood Count 10.5, Red Blood Count 3.74L, Hemoglobin 10.4L, Hematocrit 33.3L, Mean Corpuscular Volume 89, Mean Corpuscular Hemoglobin 27.8, Mean Corpuscular Hemoglobin Concent 31.2L, Red Cell Distribution Width 18.4H, Platelet Count 179, Mean Platelet Volume 5.8L, Neutrophils (%) (Auto) , Lymphocytes (%) (Auto) , Monocytes (%) (Auto) , Eosinophils (%) (Auto) , Basophils (%) (Auto) , Differential Total Cells Counted 100, Neutrophils % ( Manual) 85H, Lymphocytes % (Manual) 9L, Monocytes % (Manual) 2, Eosinophils % ( Manual) 3, Basophils % (Manual) 0, Band Neutrophils 1, Platelet Estimate Adequate, Platelet Morphology Normal, Hypochromasia 1+, Anisocytosis 1+, Sodium Level 138, Potassium Level 4.9, Chloride Level 103, Carbon Dioxide Level 25, Anion Gap 10, Blood Urea Nitrogen 27H, Creatinine 1.7H, Estimat Glomerular Filtration Rate 48.7, Glucose Level 115H, Calcium Level 9.1, Total Bilirubin 1.1H, Direct Bilirubin 0.2, Aspartate Amino Transf (AST/SGOT) 28, Alanine Aminotransferase (ALT/SGPT) 12, Alkaline Phosphatase 83, Troponin I 0.008, Pro-B -Type Natriuretic Peptide 1475H, Total Protein 7.8, Albumin 3.0L, Globulin 4.8, Albumin/Globulin Ratio 0.6L Current Medications Medications (Trade) Dose Ordered Sig/Allen Route PRN Reason Start Time Stop Time Status Last Admin Dose Admin Acetaminophen (Tylenol) 650 mg Q6H PRN ORAL Mild Pain/Temp > 100.5 05/02/19 01:45 06/01/19 01:44 Albuterol/ Ipratropium (Albuterol/ Ipratropium) 3 ml Q4H PRN HHN Shortness of Breath 05/02/19 06:15 05/07/19 06:14 Promethazine HCl/ Codeine (Phenergan with Codeine) 5 ml Q4H PRN ORAL For Cough 05/02/19 06:15 06/01/19 06:14 Moe Hand MD May 02, 2019 06:42
[2019-05-02] MEDS ORDERED: Nitroglycerin Subl 0.4mg tab SL PRN (06:45)
[2019-05-02] MEDS ORDERED: cloNIDine 0.2mg Tab ORAL PRN (06:45)
[2019-05-02 06:56] LABS: BASOPHILS % (AUTO) 0.2 % (0.0-2.0); EOSINOPHILS % (AUTO) 3.5 % (0.0-3.0); HEMATOCRIT 29.5 % (42.0-52.0); HEMOGLOBIN 9.6 G/DL (14.2-18.0); LYMPHOCYTES % (AUTO) 10.2 % (20.0-45.0); MEAN CORPUSCULAR VOLUME 87 FL (80-99); MONOCYTES % (AUTO) 2.9 % (1.0-10.0); NEUTROPHILS % (AUTO) 83.2 % (45.0-75.0); PLATELET COUNT 142 K/UL (150-450); RED BLOOD COUNT 3.41 M/UL (4.70-6.10); RED CELL DISTRIBUTION WIDTH 18.2 % (11.6-14.8); WHITE BLOOD COUNT 8.9 K/UL (4.8-10.8)
--- NOTE | 2019-05-02 07:05 | NUR ---
HAND-OFF: Report given to Shannen Palmer RN. Endorsed Plan of Care.
[2019-05-02 07:07] LABS: ANION GAP 8 mmol/L (5-15); BLOOD UREA NITROGEN 30 mg/dL (7-18); CALCIUM 8.7 MG/DL (8.5-10.1); CARBON DIOXIDE 29 MMOL/L (21-32); CHLORIDE 102 MMOL/L (98-107); CREATININE 1.9 MG/DL (0.55-1.30); POTASSIUM 3.8 MMOL/L (3.5-5.1); SODIUM 138 MMOL/L (136-145)
[2019-05-02 07:23] LABS: ALANINE AMINOTRANSFERASE 15 U/L (12-78); ALBUMIN 2.9 G/DL (3.4-5.0); ALBUMIN/GLOBULIN RATIO 0.7 (1.0-2.7); ALKALINE PHOSPHATASE 82 U/L (46-116); ASPARTATE AMINO TRANSFERASE 23 U/L (15-37); BILIRUBIN,TOTAL 0.9 MG/DL (0.2-1.0); CHOLESTEROL 99 MG/DL (< 200); FERRITIN 984 NG/ML (8-388); GAMMA GLUTAMYL TRANSPEPTIDASE 21 U/L (5-85); HDL CHOLESTEROL 16 MG/DL (40-60); PHOSPHORUS 3.2 MG/DL (2.5-4.9); TRIGLYCERIDES 164 MG/DL (30-150)
[2019-05-02 07:54] LABS: INR 1.5 (0.9-1.1)
[2019-05-02 07:55] LABS: % IRON SATURATION 28 % (15-50); IRON 41 ug/dL (50-175); TOTAL IRON BINDING CAPACITY 147 ug/dL (250-450)
[2019-05-02 08:00] VITALS: BP 103/68
[2019-05-02] MEDS: Carvedilol 25mg Tab ORAL SCH ×2 (09:00→20:30)
[2019-05-02] MEDS: Vitamin D 1000 IU Tab ORAL SCH (09:15)
--- NOTE | 2019-05-02 11:18 | Diagnostic Imaging Report ---
Indication: Shortness of breath Technique: One view of the chest Comparison: 01/27/2018 Findings: Markedly increased, now large, right pleural effusion, occupies well over half of the right hemithorax. The left lung and pleural space remain clear. The heart size is probably normal. Impression: Large right pleural effusion, increased since prior study 01/27/2018
[2019-05-02 12:00] VITALS: BP 110/63
--- NOTE | 2019-05-02 12:16 | Consultation ---
Consult Note Consult Note Asked to eval for for renal failure- patient lethargic and poor historian Chief Complaint: Dyspnea/Respdistress HPI: 69-year-old male presents for evaluation of shortness of breath. He has a history of COPD, CHF on 2 L at home, stroke, [place] status post stenting, small cell lung cancer currently undergoing chemotherapy with recurrent pleural effusions. States he got to the hospital at [facility] 1 week ago where he had small effusions in his lungs. Worsening shortness of breath for 1 day. Continues to smoke. Denies fevers. Has a worsening cough. Denies lower extremity edema. PMH: Small cell lung cancer, CAD, COPD, CHF PSH: Multiple stents, thoracenteses Allergies: BRITTANI inhibitor Social Hx: Current smoker Allergies: BRITTANI INHIBITORS (Unverified Allergy, Unknown, 03/19/15) Hx Cardiac Problems: Yes - stroke, cardiac stent, Hx Hypertension: Yes Hx COPD: Yes Hx Diabetes: Yes Hx Cancer: Yes - lung cancer stage 4 Hx Cerebrovascular Accident: Yes - 06/2016 . Assessment/Plan Serum Creatinine appears base line since October 2017 Pleural Effusion other Dx: Chronic obstructive pulmonary disease with acute exacerbation. Shortness of breath. Respiratory insufficiency. pleural effusions Possible underlying infection. History of lung cancer. Evidence of hypoxemia. pleural effusion- worse possible pulmonary edema per pulmonary Pleural Tap adjust BP , BS , Pulm and cardiac tune up per orders adjust electrolytes Stewart Garzon MD May 02, 2019 12:16
--- NOTE | 2019-05-02 12:57 | Pre-Procedure Note/Attestation ---
Pre-Procedure Note/Attestation Complete Prior to Procedure Planned Procedure: right Procedure Narrative: thoracentesis Indications for Procedure Pre-Operative Diagnosis: pleural effusion Attestation I attest that I discussed the nature of the procedure; its benefits; risks and complications; and alternatives (and the risks and benefits of such alternatives ), prior to the procedure, with the patient (or the patient's legal medical collections representative). I attest that, if there was a reasonable possibility of needing a blood transfusion, the patient (or the patient's legal medical collections representative) was given the [facility] standardized written summary, pursuant to the [place] Blood Safety Act ([place] Health and Safety Code # 1645, as amended). I attest that I re-evaluated the patient just prior to the surgery and that there has been no change in the patient's H&P, except as documented below: Ricardo Meade MD May 02, 2019 12:57
--- NOTE | 2019-05-02 13:05 | Diagnostic Imaging Report ---
Indications: Pleural effusion Technique: Ultrasound used to localize optimal puncture site. Real-time sonographic imaging demonstrates multiloculated/septated pleural fluid. The largest locule was selected as a target. Sterile prepping and draping right chest. Local anesthesia with 1% lidocaine. Under real-time ultrasound guidance, puncture pleural space using thoracentesis needle. Stylet removed. Catheter placed to vacuum bottle suction. Total 300 milliliters of grossly bloody fluid aspirated. Patient tolerated procedure well, without immediate complication. Findings: Followup sonography demonstrates resistance of most of the fluid Impression: Successful ultrasound-guided thoracentesis, yielding 300 milliliters of grossly bloody fluid. Note that fluid was observed under sonography to be loculated/septated, and only a small amount of fluid could be aspirated despite targeting of the largest locule
[2019-05-02] MEDS: guaiFENesin w/Codeine 5ml Liq ud ORAL PRN ×2 (13:22→20:32)
[2019-05-02] MEDS: HYDROcodone/Acetamin 10/325 tab ORAL PRN (13:24)
--- NOTE | 2019-05-02 14:04 | Brief Operative Note ---
Immediate Post Operative Note Operative Note Pre-op Diagnosis: pleural effusion Procedure: thoracentesis Post-op Diagnosis: same as pre-op Findings: other - grossly bloody fluid Surgeon: Ellis Augustine Specimen: yes - 50 ml fluid sent to lab Complications: none Condition: stable Fluids: none Implant(s) used?: No Ricardo Augustine MD May 02, 2019 14:04
--- NOTE | 2019-05-02 14:51 | Consultation ---
History of Present Illness General Chief Complaint: Dyspnea/Respdistress Present Illness Allergies: Coded Allergies: BRITTANI INHIBITORS (Unverified Allergy, Unknown, 03/19/15) Medication History Scheduled Allopurinol* (Allopurinol*), 100 MG ORAL BID, (Reported) Aspirin Ec* (Aspirin Ec*), 81 MG ORAL DAILY, (Reported) Atorvastatin Calcium* (Atorvastatin Calcium*), 80 MG ORAL BEDTIME, (Reported) Carvedilol* (Carvedilol*), 12.5 MG ORAL BID, (Reported) Cholecalciferol (Vitamin D3)* (Vitamin D*), 1,000 UNIT ORAL DAILY, (Reported) Clonidine Hcl* (Catapres*), 0.2 MG ORAL TID, (Reported) Fluticasone/Salmeterol (Advair 250-50 Diskus), 1 PUFF INH EVERY 12 HOURS, ( Reported) Fluticasone/Salmeterol (Advair 250-50 Diskus), 1 PUFF INH EVERY 12 HOURS, ( Reported) Glipizide* (Glipizide*), 5 MG ORAL BID, (Reported) Hydralazine Hcl* (Hydralazine Hcl*), 100 MG ORAL TID, (Reported) Hydrochlorothiazide* (Hydrochlorothiazide*), 25 MG ORAL DAILY, (Reported) Hydrocodone Bit/Acetaminophen 10-325* (Hydrocodon-Acetaminophn 10-325*), 1 TAB ORAL Q4H, (Reported) Pantoprazole* (Pantoprazole*), 40 MG ORAL DAILY, (Reported) Tamsulosin Hcl (Tamsulosin Hcl*), 0.4 MG ORAL BEDTIME, (Reported) Ticagrelor* (Brilinta*), 90 MG PO BID, (Reported) Warfarin Sod* (Warfarin Sod*), 10 MG ORAL DAILY, (Reported) Scheduled PRN Diphenhydramine Hcl* (Diphenhydramine Hcl*), 25 MG ORAL HS PRN for Itching, ( Reported) Nitroglycerin (Nitrostat), 0.4 MG SL ONCE PRN for PRN, (Reported) Patient History Healthcare decision maker Resuscitation status Advanced Directive on File Physical Exam Last 24 Hour Vital Signs Date Time Temp Pulse Resp B/P (MAP) Pulse Ox O2 Delivery O2 Flow Rate FiO2 05/02/19 12:00 98.6 97 18 110/63 (79) 98 05/02/19 09:00 112 103/68 05/02/19 09:00 112 103/68 05/02/19 09:00 Nasal Cannula 3.0 05/02/19 08:00 121 05/02/19 08:00 97.3 112 17 103/68 (80) 98 05/02/19 04:00 98.1 130/66 (87) 05/02/19 04:00 108 05/02/19 02:36 Nasal Cannula 3.0 05/02/19 01:10 105 25 124/85 100 Nasal Cannula 3.0 05/02/19 00:28 116 27 103/69 97 Nasal Cannula 3.0 05/01/19 21:57 114 31 100 Nasal Cannula 3.0 32 05/01/19 21:42 110 30 100 Non-Rebreather 15.0 100 05/01/19 21:40 113 32 100 Non-Rebreather 15.0 100 05/01/19 21:34 110 20 Non-Rebreather 05/01/19 21:34 98.2 89 20 147/81 98 Non-Rebreather 05/01/19 21:19 98.2 110 20 147/81 (103) 98 Non-Rebreather Intake and Output 05/01/19 05/02/19 19:00 07:00 Intake Total 300 ml Output Total 550 ml Balance -250 ml Intake Oral 300 ml Output Urine Total 550 ml Laboratory Tests Test 05/01/19 21:42 05/02/19 05:35 05/02/19 07:20 05/02/19 12:56 White Blood Count 10.5 K/UL (4.8-10.8) 8.9 K/UL (4.8-10.8) Red Blood Count 3.74 M/UL (4.70-6.10) L 3.41 M/UL (4.70-6.10) L Hemoglobin 10.4 G/DL (14.2-18.0) L 9.6 G/DL (14.2-18.0) L Hematocrit 33.3 % (42.0-52.0) L 29.5 % (42.0-52.0) L Mean Corpuscular Volume 89 FL (80-99) 87 FL (80-99) Mean Corpuscular Hemoglobin 27.8 PG (27.0-31.0) 28.1 PG (27.0-31.0) Mean Corpuscular Hemoglobin Concent 31.2 G/DL (32.0-36.0) L 32.5 G/DL (32.0-36.0) Red Cell Distribution Width 18.4 % (11.6-14.8) H 18.2 % (11.6-14.8) H Platelet Count 179 K/UL (150-450) 142 K/UL (150-450) L Mean Platelet Volume 5.8 FL (6.5-10.1) L 5.7 FL (6.5-10.1) L Neutrophils (%) (Auto) % (45.0-75.0) 83.2 % (45.0-75.0) H Lymphocytes (%) (Auto) % (20.0-45.0) 10.2 % (20.0-45.0) L Monocytes (%) (Auto) % (1.0-10.0) 2.9 % (1.0-10.0) Eosinophils (%) (Auto) % (0.0-3.0) 3.5 % (0.0-3.0) H Basophils (%) (Auto) % (0.0-2.0) 0.2 % (0.0-2.0) Differential Total Cells Counted 100 Neutrophils % (Manual) 85 % (45-75) H Lymphocytes % (Manual) 9 % (20-45) L Monocytes % (Manual) 2 % (1-10) Eosinophils % (Manual) 3 % (0-3) Basophils % (Manual) 0 % (0-2) Band Neutrophils 1 % (0-8) Platelet Estimate Adequate Platelet Morphology Normal Hypochromasia 1+ Anisocytosis 1+ Sodium Level 138 MMOL/L (136-145) 138 MMOL/L (136-145) Potassium Level 4.9 MMOL/L (3.5-5.1) 3.8 MMOL/L (3.5-5.1) Chloride Level 103 MMOL/L (98-107) 102 MMOL/L (98-107) Carbon Dioxide Level 25 MMOL/L (21-32) 29 MMOL/L (21-32) Anion Gap 10 mmol/L (5-15) 8 mmol/L (5-15) Blood Urea Nitrogen 27 mg/dL (7-18) H 30 mg/dL (7-18) H Creatinine 1.7 MG/DL (0.55-1.30) H 1.9 MG/DL (0.55-1.30) H Estimat Glomerular Filtration Rate 48.7 mL/min (>60) 42.8 mL/min (>60) Glucose Level 115 MG/DL (74-106) H 133 MG/DL (74-106) H Calcium Level 9.1 MG/DL (8.5-10.1) 8.7 MG/DL (8.5-10.1) Total Bilirubin 1.1 MG/DL (0.2-1.0) H 0.9 MG/DL (0.2-1.0) Direct Bilirubin 0.2 MG/DL (0.0-0.3) Aspartate Amino Transf (AST/SGOT) 28 U/L (15-37) 23 U/L (15-37) Alanine Aminotransferase (ALT/SGPT) 12 U/L (12-78) 15 U/L (12-78) Alkaline Phosphatase 83 U/L (46-116) 82 U/L (46-116) Troponin I 0.008 ng/mL (0.000-0.056) Pro-B-Type Natriuretic Peptide 1475 pg/mL (0-125) H 1295 pg/mL (0-125) H Total Protein 7.8 G/DL (6.4-8.2) 7.3 G/DL (6.4-8.2) Albumin 3.0 G/DL (3.4-5.0) L 2.9 G/DL (3.4-5.0) L Globulin 4.8 g/dL 4.4 g/dL Albumin/Globulin Ratio 0.6 (1.0-2.7) L 0.7 (1.0-2.7) L Hemoglobin A1c 6.7 % (4.3-6.0) H Uric Acid 7.2 MG/DL (2.6-7.2) Phosphorus Level 3.2 MG/DL (2.5-4.9) Magnesium Level 1.6 MG/DL (1.8-2.4) L Iron Level 41 ug/dL (50-175) L Total Iron Binding Capacity 147 ug/dL (250-450) L Percent Iron Saturation 28 % (15-50) Unsaturated Iron Binding 106 ug/dL (112-346) L Ferritin 984 NG/ML (8-388) H Gamma Glutamyl Transpeptidase 21 U/L (5-85) C-Reactive Protein, Quantitative 11.4 mg/dL (0.00-0.90) H Triglycerides Level 164 MG/DL (30-150) H Cholesterol Level 99 MG/DL (< 200) LDL Cholesterol 46 mg/dL (<100) HDL Cholesterol 16 MG/DL (40-60) L Cholesterol/HDL Ratio 6.2 (3.3-4.4) H Vitamin B12 Level 1868 PG/ML (193-986) H Folate 47.2 NG/ML (8.6-58.9) Thyroid Stimulating Hormone (TSH) 3.975 uiU/mL (0.358-3.740) Prothrombin Time 15.4 SEC (9.30-11.50) H Prothromb Time International Ratio 1.5 (0.9-1.1) H Activated Partial Thromboplast Time 35 SEC (23-33) H Body Fluid Glucose Pending Body Fluid Total Protein Pending Height (Feet): 5 Height (Inches): 6.00 Weight (Pounds): 171 Medications Current Medications Medications (Trade) Dose Ordered Sig/Allen Route PRN Reason Start Time Stop Time Status Last Admin Dose Admin Acetaminophen (Tylenol) 650 mg Q6H PRN ORAL Mild Pain/Temp > 100.5 05/02/19 01:45 06/01/19 01:44 Acetaminophen/ Hydrocodone Bitart ([place] 10/325) 1 tab Q4H PRN ORAL Severe Pain (Pain Scale 7-10) 05/02/19 06:45 05/09/19 06:44 05/02/19 13:24 Acetaminophen/ Hydrocodone Bitart ([place] 5/325) 1 tab Q4H PRN ORAL Moderate Pain (Pain Scale 4-6) 05/02/19 06:45 05/09/19 06:44 Albuterol/ Ipratropium (Albuterol/ Ipratropium) 3 ml Q4HRT HHN 05/02/19 11:00 05/07/19 10:59 Amlodipine Besylate (Norvasc) 5 mg DAILY ORAL 12/16/19 09:00 06/01/19 08:59 Atorvastatin Calcium (Lipitor) 40 mg BEDTIME ORAL 05/02/19 21:00 06/01/19 20:59 Carvedilol (Coreg) 25 mg EVERY 12 HOURS ORAL 05/02/19 09:00 06/01/19 08:59 Clonidine HCl (Catapres tab) 0.2 mg Q6H PRN ORAL sbp >160 05/02/19 06:45 06/01/19 06:44 Diphenhydramine HCl (Benadryl) 25 mg HSPRN PRN ORAL Insomnia 05/02/19 06:45 06/01/19 06:44 Furosemide (Lasix) 20 mg EVERY 12 HOURS ORAL 05/02/19 09:00 06/01/19 08:59 05/02/19 09:15 Guaifenesin/ Codeine Phosphate (Robitussin with codeine) 5 ml Q4H PRN ORAL For Cough 05/02/19 07:38 06/01/19 07:37 05/02/19 13:22 Nitroglycerin (Ntg) 0.4 mg Q5M PRN SL Prn Chest Pain 05/02/19 06:45 06/01/19 06:44 Ondansetron HCl (Zofran) 4 mg Q8H PRN IVP Nausea & Vomiting 05/02/19 06:45 06/01/19 06:44 Pantoprazole (Protonix) 40 mg DAILY ORAL 05/02/19 09:00 06/01/19 08:59 05/02/19 09:15 Potassium Chloride (K-Dur) 20 meq DAILY ORAL 05/03/19 09:00 06/02/19 08:59 Vitamin D (Vitamin D) 1,000 intlu DAILY ORAL 05/02/19 09:00 06/01/19 08:59 05/02/19 09:15 Assessment/Plan Assessment/Plan: HEMATOLOGY/ONCOLOGY CONSULTATION REQUESTING PHYSICIAN: Emily Butler. REASON FOR CONSULTATION: Evaluation of lung cancer. DOS: 05/02/19 IDENTIFYING DATA: Dear Dr. Butler, The patient is a pleasant 67-year-old, male with past medical history, which is significant for metastatic colon cancer, has been stable, on Avastin, carboplatin, Alimta; as well as COPD; type 2 diabetes mellitus; hypertensive heart disease; severe peripheral vascular disease, history of DVT, history of pulmonary emboli, CAD stage III, CHF, EF of 40%, paroxysmal atrial fibrillation, status post ablation, BPH history, has been in the past seen by Dr. Bradley, recently discharged [facility] several days ago with history of COPD, pleural effusion, underwent thoracentesis , large amount of fluid was removed. The patient at this time presents with increasing shortness of breath, noted to have worsening pleural effusion. Hematology Service consulted for further evaluation and treatment. PAST MEDICAL HISTORY: COPD, lung cancer, ischemic cardiac disease, type 2 diabetes, hypertensive heart disease, cerebrovascular disease, DVT, PE and CKD stage 3. HOME MEDICATIONS: Allopurinol, baby aspirin, Lipitor, D3, glipizide, hydralazine, Protonix, Advair, Brilinta, tamsulosin, and codeine. ALLERGIES: BRITTANI inhibitor. FAMILY HISTORY: Unremarkable. SOCIAL HISTORY: Lives at home. Prior history of heavy smoking use. No illicit drug use. No alcohol. ROS Constitutional: No fever, no chills, no night sweats, no fatigue Skin: No rashes, lumps, itchiness, dryness HEENT: No GRAY, ear ache, visual changes, double vision, nosebleeds Breasts: No lumps, pain, discharge Pulmonary: ++ shortness of breath noted Cardiovascular: No chest pain, tightness, palpitations, syncope, PND GI: No nausea, vomiting, diarrhea, melena, hematochezia, change in appetite : No dysuria, frequency, urgency, urinary incontinence, foamy urine Musculoskeletal: No joint swelling or muscle pain, trauma, back pain Neurologic: No dizziness, fainting, seizures, changes in smell or taste Psychiatric: No nervousness, stress, or depression, anxiety, hallucinations PHYSICAL EXAMINATION: VITAL SIGNS: Reviewed. GENERAL: No acute distress. LUNGS: Decreased breath sounds. CARDIOVASCULAR: Regular rate. No S3 or S4. ABDOMEN: Soft, nontender, and nondistended. EXTREMITIES: 1+ edema. LABORATORY AND DIAGNOSTIC DATA: Labs reviewed. Hemoglobin 9.6 and platelet count decreased. ASSESSMENT AND RECOMMENDATION: 1. Metastatic colon cancer. Getting triple combination chemotherapy, intermittent development of small right-sided pleural effusion. The patient has required thoracentesis in the past. Continue to closely monitor the patient 's fluid status. --> continue office f/ufor chemo --> using picc line for access --> maintain access as is 2. Pulmonary embolism on CT, on anticoagulation on Coumadin. --> inr goal 2-3 --> on coumadin 3. Anemia due to underlying chronic disease. --> ferritin is replete, hold off on iron 4. Thrombocytopenia, likely due to recently administered chemotherapy. --> closely monitor for improvement 5. Coagulopathy, likely due to underlying liver disease. 6. Pleural effusion --> likely to get thora I appreciate consultation and Anurag Bryan RN, MD May 02, 2019 14:51
--- NOTE | 2019-05-02 15:08 | NUR ---
*-* INSURANCE *-* ALL AVAILABLE CLINICALS HAVE BEEN FAXED TO: LINDA HARRIS:MARIEL P: [phone] F: [phone] Addendum: 05/02/19 at 1514 by MILADIS VELÁZQUEZ CASSIE# [id number]
[2019-05-02 16:00] VITALS: BP 115/82
--- NOTE | 2019-05-02 16:42 | Diagnostic Imaging Report ---
Indication: History of shortness of breath, abnormal recent chest radiograph,, status post recent thoracentesis Technique: One view of the chest Comparison: 05/01/2019 Findings: Pulmonary minimally improved massive right pleural effusion. No pneumothorax. Left lung and pleural space remain clear. Impression: Only minimally improved massive right pleural effusion, status post thoracentesis; no thoracentesis was limited due to loculation of the fluid. No radiographically evident complication Otherwise stable findings as described
--- NOTE | 2019-05-02 17:30 | Consultation ---
DATE OF CONSULTATION: 05/02/2019 CONSULTING PHYSICIAN: Danyel Riley M.D. CHIEF COMPLAINT: Shortness of breath, anemia. HISTORY OF PRESENT ILLNESS: Very pleasant unfortunate 69-year-old male with numerous medical problems including lung cancer and COPD, who came to the hospital because of shortness of breath. He was found to be anemic, so GI consult was requested for evaluation. The patient denies any abdominal pain. Denies any nausea, vomiting, dysphagia, or odynophagia. Last BM was when he left home yesterday. He denies any bleeding. PAST MEDICAL HISTORY: 1. Anemia. 2. Lung cancer. 3. Pleural effusion. 4. Constipation. 5. Renal insufficiency. 6. CVA. 7. Coronary artery disease and MD. 8. Paroxysmal atrial fibrillation, status post ablation. 9. Diabetes. 10. DVT/PE. 11. Cardiomyopathy. 12. COPD. ALLERGIES: To BRITTANI inhibitors. MEDICATIONS: Please see medication reconciliation list. SOCIAL HISTORY: At this time, the patient denies any alcohol or drug abuse. FAMILY HISTORY: Noncontributory. REVIEW OF SYSTEMS: A 10-point review of systems was performed and pertinent positives in HPI. PHYSICAL EXAMINATION: VITAL SIGNS: Temperature is 98.1, pulse 112, respirations 20, and blood pressure 103/88. HEENT: Normocephalic and atraumatic. Mild pale conjunctivae. NECK: Supple. No evidence of obvious lymphadenopathy. CARDIOVASCULAR: Tachycardiac. Regular rate. Plus S1 and S2. There is a murmur in the left sternal border. LUNGS: Decreased breath sounds bilaterally and diffusely ABDOMEN: Soft, nontender. No rebound. No guarding. No peritoneal sign. EXTREMITIES: No cyanosis. No clubbing. No edema. LABORATORY DATA: White count is 8.9, hemoglobin 9.6, hematocrit 29, and platelet count 142,000. BUN is 30, creatinine 1.9. ASSESSMENT AND PLAN: This is a 69-year-old male with numerous medical problems as dictated above. From GI standpoint, he has mild anemia, most probably secondary to chronic disease. No evidence of any active bleeding. Plan will be to send iron panel, stool for OB, monitor hemoglobin and hematocrit, transfuse as needed. Given pleural effusions and pending thoracentesis, I am going to hold off GI procedure at this time. Danyel Riley M.D. DR: KISHA JOB#: [id number] CC:
--- NOTE | 2019-05-02 19:23 | NUR ---
HAND-OFF: Report given to Kristin RUST. Patient stable. Plan of care endorsed.
--- NOTE | 2019-05-02 19:30 | NUR ---
Handoff from Nataly RUST. Plan of Care Endorsed to me.
--- NOTE | 2019-05-02 19:30 | History and Physical Report ---
DATE OF ADMISSION: 05/01/2019 CHIEF COMPLAINT: Shortness of breath. HISTORY OF PRESENT ILLNESS: This is a 69-year-old male, who is one of my office patients. The patient presented to the ED without my knowledge and was admitted to a different doctor. I got a word that the patient is here. By now, the patient is under my care. As usual, the patient was admitted and had thoracentesis by now. The patient was admitted to this hospital as well as to [facility] numerous times for this problem. PAST MEDICAL HISTORY: 1. Combined congestive heart failure. 2. COPD. 3. History of lung CA, post chemotherapy. 4. Anemia, multifactorial. 5. Ischemic heart disease, post stents. 6. Chronic kidney disease, multifactorial. 7. Severe peripheral vascular disease. 8. Central venous occlusions. MEDICATIONS: Tylenol p.r.n., albuterol inhaler, amlodipine, atorvastatin, cough syrup, Coreg, clonidine, Benadryl p.r.n., DuoNeb inhalation, Lasix, [place] p.r.n., nitroglycerin, K-Dur, vitamin D. ALLERGIES: To BRITTANI inhibitors. FAMILY HISTORY: Unremarkable. SOCIAL HISTORY: He is nonsmoker. REVIEW OF SYSTEMS: HEENT: Hearing and eyesight are normal. ENDOCRINE: No history of diabetes, thyroid, or adrenal problems. RESPIRATORY: Significant for orthopnea, paroxysmal nocturnal dyspnea, and dyspnea on effort. CARDIAC: He has history of multiple stents, coronary stents. GASTROINTESTINAL: No history of hematochezia, melena, or hematemesis. NEUROLOGIC: No history of stroke, syncope, or Parkinson disease. PHYSICAL EXAMINATION: GENERAL: This is an elderly male, who is in no acute distress. VITAL SIGNS: Blood pressure 110/63, pulse 97 regular, respirations 18, temperature 98.6. HEENT: The head is normocephalic and atraumatic. Pupils are equal, round, and reactive to light and accommodation consensually. NECK: Supple. Trachea midline. There was no lymphadenopathy or thyromegaly. LUNGS: Bilateral wheezes. HEART: Regular rate and rhythm. He has a grade 2 systolic ejection murmur best heard at left sternal border. CHEST: He has multiple collaterals on his chest wall. ABDOMEN: Soft and nontender. Bowel sounds were active. EXTREMITIES: No clubbing, cyanosis, or edema. NEUROLOGICAL: He is alert and oriented x4. Cranial nerves II through XII intact. LABORATORY AND ANCILLARY DATA: CBC shows hematocrit 29.5, otherwise within normal limits. CMP shows BUN 30, creatinine 1.9, magnesium 1.6. IMAGING REPORTS: Chest x-ray done on 05/01/2019, large right pleural effusion, increased since study 01/27/2018. ASSESSMENT: 1. Recurrent pleural effusion. 2. Combined congestive heart failure. 3. COPD. 4. History of lung CA, post chemotherapy. 5. Anemia, multifactorial. 6. Ischemic heart disease, post stents. 7. Chronic kidney disease, multifactorial. 8. Severe peripheral vascular disease. 9. Central venous occlusions. PLAN: 1. The patient underwent successful thoracentesis. 2. Expected discharge tomorrow. Harsh Maher M.D. DR: ESTEPHANIA JOB#: [id number] CC:
[2019-05-02 20:00] VITALS: BP 125/92
[2019-05-02] MEDS: Albuterol/Ipratropium 3ml neb HHN SCH ×2 (20:05→23:00)
[2019-05-02] MEDS: Atorvastatin 20mg tab ORAL SCH (20:32)
[2019-05-02] MEDS: HYDROcodone/Acetamin 5/325 tab ORAL PRN (20:32)
--- NOTE | 2019-05-02 21:00 | Consultation ---
DATE OF CONSULTATION: 05/02/2019 INFECTIOUS DISEASES CONSULTATION CONSULTING PHYSICIAN: Jerry Yusuf M.D. PRIMARY ATTENDING PHYSICIAN: Emily Marquez M.D. REASON FOR CONSULTATION: COPD and pleural effusion. HISTORY OF PRESENT ILLNESS: The patient is a 69-year-old male admitted last night from home complaining of shortness of breath that is worsening. He has history of small cell lung cancer stage IV and recurrent pleural effusion. He is on chemotherapy, last dose was given by Dr. Salguero in the office on Thursday. He had a recent hospitalization in [facility]. After admission, the patient was found to have right pleural effusion that was tapped today, only a small amount of fluid can be obtained and according to patient it was bloody. PAST MEDICAL HISTORY: COPD, CHF, coronary artery disease status post stent placement, small cell lung cancer stage IV, hypertension, nicotine dependence, anemia. ALLERGIES: Allergic to BRITTANI inhibitors. MEDICATIONS: Getting potassium chloride, Lipitor, magnesium sulfate, albuterol and ipratropium, amlodipine, Coreg, Protonix, Lasix, Robitussin cough syrup with codeine, clonidine, diphenhydramine, [place], Zofran, Tylenol. SOCIAL HISTORY: Single, current smoker. No drug or alcohol abuse. REVIEW OF SYSTEMS: He has shortness of breath. No significant cough. No fever. No chills. No nausea. No vomiting. Feels hungry. No problem passing urine but has urinary frequency that he attributes to Lasix. PHYSICAL EXAMINATION: VITAL SIGNS: Temperature 97.3, pulse 112, blood pressure 103/68. GENERAL APPEARANCE: No acute distress, seems to have normal weight. HEAD AND NECK: Getting oxygen by nasal cannula. [place] conjunctiva. HEART: Tachycardic. LUNGS: clear, decreased sound in the right side. ABDOMEN: Soft and nontender. EXTREMITIES: No edema. NEUROLOGIC: Awake, alert, oriented x3. LABORATORY AND DIAGNOSTIC DATA: WBC 8.3, hemoglobin 9.6, hematocrit 29.5, and platelets 142. Sodium 138, potassium 3.8, chloride 102, bicarbonate 29, BUN 30, creatinine 1.9, glucose is 133. CRP is elevated at 11.4. Chest x-ray showed right pleural effusion. Chest ultrasound was successful with ultrasound-guided thoracentesis yielding 300 mL of pleuritic fluid . IMPRESSION: Systemic inflammatory response, tachycardia and tachypnea, right pleural effusions, COPD, CHF, small-cell lung cancer, hypertension, nicotine dependence, anemia. RECOMMENDATION: Observe off antibiotics. We will follow up pleural fluid culture. At the end of my exam, I thank Dr. Marquez, for involving me in the care of this patient. Jerry Yusuf M.D. DR: Bárbara JOB#: [id number] CC: FERNANDEZ
[2019-05-03] VITALS: BP 106/68
[2019-05-03] MEDS: Albuterol/Ipratropium 3ml neb HHN SCH ×6 (02:25→23:00)
[2019-05-03 04:00] VITALS: BP 138/85
[2019-05-03] MEDS: HYDROcodone/Acetamin 5/325 tab ORAL PRN ×3 (04:01→18:54)
[2019-05-03] MEDS: guaiFENesin w/Codeine 5ml Liq ud ORAL PRN ×3 (04:05→18:54)
--- NOTE | 2019-05-03 06:20 | Hematology/Onc Progress Note ---
Assessment/Plan Assessment/Plan ASSESSMENT AND RECOMMENDATION: 1. Metastatic colon cancer. Getting triple combination chemotherapy, intermittent development of small right-sided pleural effusion. The patient has required thoracentesis in the past. Continue to closely monitor the patient 's fluid status. --> continue office f/ufor chemo --> using picc line for access --> maintain access as is --> likely cause of right sided effusion --> as per recs by Dr. Hand 2. Pulmonary embolism on CT, on anticoagulation on Coumadin. --> inr goal 2-3 --> on coumadin 3. Anemia due to underlying chronic disease. --> ferritin is replete, hold off on iron 4. Thrombocytopenia, likely due to recently administered chemotherapy. --> closely monitor for improvement 5. Coagulopathy, likely due to underlying liver disease. --> correct before procedure 6. Pleural effusion --> s/p thora --> robitussin dose increased I appreciate consultation and kevin RN Subjective HEENT: Denies: no symptoms, eye pain, blurred vision, tearing, double vision, ear pain, ear discharge, nose pain, nose congestion, throat pain, throat swelling, mouth pain, mouth swelling, other Cardiovascular: Denies: no symptoms, chest pain, edema, irregular heart rate, lightheadedness, palpitations, syncope, other Respiratory: Denies: no symptoms, cough, shortness of breath, SOB with excertion, SOB at rest, sputum, wheezing, other Gastrointestinal/Abdominal: Denies: no symptoms, abdomen distended, abdominal pain, black stools, tarry stools, blood in stool, constipated, diarrhea, difficulty swallowing, nausea, poor appetite, poor fluid intake, rectal bleeding , vomiting, other Genitourinary: Denies: no symptoms, burning, discharge, frequency, flank pain, hematuria, incontinence, pain, urgency, other Neurologic/Psychiatric: Denies: no symptoms, anxiety, depressed, emotional problems, headache, numbness, paresthesia, pre-existing deficit, seizure, tingling, tremors, weakness, other Endocrine: Denies: no symptoms, excessive sweating, flushing, intolerance to cold, intolerance to heat, increased hunger, increased thirst, increased urine, unexplained weight gain, unexplained weight loss, other Allergies: Coded Allergies: BRITTANI INHIBITORS (Unverified Allergy, Unknown, 03/19/15) Subjective 05/03: no events to report, no bleeding, some shortness of breath, COUGHING, increase robitussin Objective Objective Current Medications Medications (Trade) Dose Ordered Sig/Allen Route PRN Reason Start Time Stop Time Status Last Admin Dose Admin Acetaminophen (Tylenol) 650 mg Q6H PRN ORAL Mild Pain/Temp > 100.5 05/02/19 01:45 06/01/19 01:44 Acetaminophen/ Hydrocodone Bitart ([place] 10/325) 1 tab Q4H PRN ORAL Severe Pain (Pain Scale 7-10) 05/02/19 06:45 05/09/19 06:44 05/02/19 13:24 Acetaminophen/ Hydrocodone Bitart ([place] 5/325) 1 tab Q4H PRN ORAL Moderate Pain (Pain Scale 4-6) 05/02/19 06:45 05/09/19 06:44 05/03/19 04:01 Albuterol/ Ipratropium (Albuterol/ Ipratropium) 3 ml Q4HRT HHN 05/02/19 11:00 05/07/19 10:59 05/02/19 20:05 Amlodipine Besylate (Norvasc) 5 mg DAILY ORAL 05/02/19 09:00 06/01/19 08:59 Atorvastatin Calcium (Lipitor) 40 mg BEDTIME ORAL 05/02/19 21:00 06/01/19 20:59 05/02/19 20:32 Carvedilol (Coreg) 25 mg EVERY 12 HOURS ORAL 05/02/19 09:00 06/01/19 08:59 05/02/19 20:30 Clonidine HCl (Catapres tab) 0.2 mg Q6H PRN ORAL sbp >160 05/02/19 06:45 06/01/19 06:44 Diphenhydramine HCl (Benadryl) 25 mg HSPRN PRN ORAL Insomnia 05/02/19 06:45 06/01/19 06:44 Furosemide (Lasix) 20 mg EVERY 12 HOURS ORAL 05/02/19 09:00 06/01/19 08:59 05/02/19 20:32 Guaifenesin/ Codeine Phosphate (Robitussin with codeine) 5 ml Q4H PRN ORAL For Cough 05/02/19 07:38 1/15/20 07:37 05/03/19 04:05 Nitroglycerin (Ntg) 0.4 mg Q5M PRN SL Prn Chest Pain 05/02/19 06:45 06/01/19 06:44 Ondansetron HCl (Zofran) 4 mg Q8H PRN IVP Nausea & Vomiting 05/02/19 06:45 06/01/19 06:44 Pantoprazole (Protonix) 40 mg DAILY ORAL 05/02/19 09:00 06/01/19 08:59 05/02/19 09:15 Potassium Chloride (K-Dur) 20 meq DAILY ORAL 05/03/19 09:00 06/02/19 08:59 Vitamin D (Vitamin D) 1,000 intlu DAILY ORAL 05/02/19 09:00 06/01/19 08:59 05/02/19 09:15 Last 24 Hour Vital Signs Date Time Temp Pulse Resp B/P (MAP) Pulse Ox O2 Delivery O2 Flow Rate FiO2 05/03/19 04:31 98.2 05/03/19 04:00 90 05/03/19 04:00 98.2 99 18 138/85 (102) 99 05/03/19 00:00 98.2 94 18 106/68 (81) 99 05/02/19 21:00 Nasal Cannula 3.0 05/02/19 20:30 99 125/82 05/02/19 20:00 98.7 99 18 125/92 (103) 99 05/02/19 20:00 99 05/02/19 19:59 99 22 100 Nasal Cannula 2.0 28 94 24 98 05/02/19 16:00 104 05/02/19 16:00 98.7 89 18 115/82 (93) 96 05/02/19 12:00 98.6 97 18 110/63 (79) 98 05/02/19 09:00 112 103/68 05/02/19 09:00 112 103/68 05/02/19 09:00 Nasal Cannula 3.0 05/02/19 08:00 121 05/02/19 08:00 97.3 112 17 103/68 (80) 98 05/02/19 04:00 98.1 130/66 (87) 05/02/19 04:00 108 05/02/19 02:36 Nasal Cannula 3.0 05/02/19 01:10 105 25 124/85 100 Nasal Cannula 3.0 05/02/19 00:28 116 27 103/69 97 Nasal Cannula 3.0 05/01/19 21:57 114 31 100 Nasal Cannula 3.0 32 05/01/19 21:42 110 30 100 Non-Rebreather 15.0 100 05/01/19 21:40 113 32 100 Non-Rebreather 15.0 100 05/01/19 21:34 110 20 Non-Rebreather 05/01/19 21:34 98.2 89 20 147/81 98 Non-Rebreather 05/01/19 21:19 98.2 110 20 147/81 (103) 98 Non-Rebreather Intake and Output 05/02/19 05/03/19 18:59 06:59 Intake Total 1060 ml Output Total 1050 ml Balance 1060 ml -1050 ml IV Total 200 ml Other 860 ml Output Urine Total 1050 ml # Voids 4 Labs Test 05/01/19 21:42 05/02/19 05:35 05/02/19 07:20 05/02/19 12:56 White Blood Count 10.5 K/UL (4.8-10.8) 8.9 K/UL (4.8-10.8) Red Blood Count 3.74 M/UL (4.70-6.10) 3.41 M/UL (4.70-6.10) Hemoglobin 10.4 G/DL (14.2-18.0) 9.6 G/DL (14.2-18.0) Hematocrit 33.3 % (42.0-52.0) 29.5 % (42.0-52.0) Mean Corpuscular Volume 89 FL (80-99) 87 FL (80-99) Mean Corpuscular Hemoglobin 27.8 PG (27.0-31.0) 28.1 PG (27.0-31.0) Mean Corpuscular Hemoglobin Concent 31.2 G/DL (32.0-36.0) 32.5 G/DL (32.0-36.0) Red Cell Distribution Width 18.4 % (11.6-14.8) 18.2 % (11.6-14.8) Platelet Count 179 K/UL (150-450) 142 K/UL (150-450) Mean Platelet Volume 5.8 FL (6.5-10.1) 5.7 FL (6.5-10.1) Neutrophils (%) (Auto) % (45.0-75.0) 83.2 % (45.0-75.0) Lymphocytes (%) (Auto) % (20.0-45.0) 10.2 % (20.0-45.0) Monocytes (%) (Auto) % (1.0-10.0) 2.9 % (1.0-10.0) Eosinophils (%) (Auto) % (0.0-3.0) 3.5 % (0.0-3.0) Basophils (%) (Auto) % (0.0-2.0) 0.2 % (0.0-2.0) Differential Total Cells Counted 100 Neutrophils % (Manual) 85 % (45-75) Lymphocytes % (Manual) 9 % (20-45) Monocytes % (Manual) 2 % (1-10) Eosinophils % (Manual) 3 % (0-3) Basophils % (Manual) 0 % (0-2) Band Neutrophils 1 % (0-8) Platelet Estimate Adequate Platelet Morphology Normal Hypochromasia 1+ Anisocytosis 1+ Sodium Level 138 MMOL/L (136-145) 138 MMOL/L (136-145) Potassium Level 4.9 MMOL/L (3.5-5.1) 3.8 MMOL/L (3.5-5.1) Chloride Level 103 MMOL/L (98-107) 102 MMOL/L (98-107) Carbon Dioxide Level 25 MMOL/L (21-32) 29 MMOL/L (21-32) Anion Gap 10 mmol/L (5-15) 8 mmol/L (5-15) Blood Urea Nitrogen 27 mg/dL (7-18) 30 mg/dL (7-18) Creatinine 1.7 MG/DL (0.55-1.30) 1.9 MG/DL (0.55-1.30) Estimat Glomerular Filtration Rate 48.7 mL/min (>60) 42.8 mL/min (>60) Glucose Level 115 MG/DL (74-106) 133 MG/DL (74-106) Calcium Level 9.1 MG/DL (8.5-10.1) 8.7 MG/DL (8.5-10.1) Total Bilirubin 1.1 MG/DL (0.2-1.0) 0.9 MG/DL (0.2-1.0) Direct Bilirubin 0.2 MG/DL (0.0-0.3) Aspartate Amino Transf (AST/SGOT) 28 U/L (15-37) 23 U/L (15-37) Alanine Aminotransferase (ALT/SGPT) 12 U/L (12-78) 15 U/L (12-78) Alkaline Phosphatase 83 U/L (46-116) 82 U/L (46-116) Troponin I 0.008 ng/mL (0.000-0.056) Pro-B-Type Natriuretic Peptide 1475 pg/mL (0-125) 1295 pg/mL (0-125) Total Protein 7.8 G/DL (6.4-8.2) 7.3 G/DL (6.4-8.2) Albumin 3.0 G/DL (3.4-5.0) 2.9 G/DL (3.4-5.0) Globulin 4.8 g/dL 4.4 g/dL Albumin/Globulin Ratio 0.6 (1.0-2.7) 0.7 (1.0-2.7) Hemoglobin A1c 6.7 % (4.3-6.0) Uric Acid 7.2 MG/DL (2.6-7.2) Phosphorus Level 3.2 MG/DL (2.5-4.9) Magnesium Level 1.6 MG/DL (1.8-2.4) Iron Level 41 ug/dL (50-175) Total Iron Binding Capacity 147 ug/dL (250-450) Percent Iron Saturation 28 % (15-50) Unsaturated Iron Binding 106 ug/dL (112-346) Ferritin 984 NG/ML (8-388) Gamma Glutamyl Transpeptidase 21 U/L (5-85) C-Reactive Protein, Quantitative 11.4 mg/dL (0.00-0.90) Triglycerides Level 164 MG/DL (30-150) Cholesterol Level 99 MG/DL (< 200) LDL Cholesterol 46 mg/dL (<100) HDL Cholesterol 16 MG/DL (40-60) Cholesterol/HDL Ratio 6.2 (3.3-4.4) Vitamin B12 Level 1868 PG/ML (193-986) Folate 47.2 NG/ML (8.6-58.9) Thyroid Stimulating Hormone (TSH) 3.975 uiU/mL (0.358-3.740) Prothrombin Time 15.4 SEC (9.30-11.50) Prothromb Time International Ratio 1.5 (0.9-1.1) Activated Partial Thromboplast Time 35 SEC (23-33) Height (Feet): 5 Height (Inches): 6.00 Weight (Pounds): 171 Objective PHYSICAL EXAMINATION: VITAL SIGNS: Reviewed. GENERAL: No acute distress. LUNGS: decreased bs right side lung ++ crackles CARDIOVASCULAR: Regular rate. No S3 or S4. ABDOMEN: Soft, nontender, and nondistended. EXTREMITIES: 1+ edema. Anurag Salguero MD May 03, 2019 06:20
[2019-05-03] MEDS ORDERED: Guaifenesin/DM 10ml syrup ORAL PRN (06:30)
--- NOTE | 2019-05-03 06:56 | NUR ---
Report given To Laila RUST. Plan of care endorsed
[2019-05-03 07:22] LABS: HEMATOCRIT 31.8 % (42.0-52.0); MEAN CORPUSCULAR VOLUME 89 FL (80-99); PLATELET COUNT 99 K/UL (150-450); RED BLOOD COUNT 3.57 M/UL (4.70-6.10); RED CELL DISTRIBUTION WIDTH 18.7 % (11.6-14.8); WHITE BLOOD COUNT 4.7 K/UL (4.8-10.8)
--- NOTE | 2019-05-03 07:31 | General Progress Note ---
Assessment/Plan Assessment/Plan: 1. Anemia. 2. metastatic colon cancer. 3. Pleural effusion. 4. Constipation. 5. Renal insufficiency. 6. CVA. 7. Coronary artery disease and MO. 8. Paroxysmal atrial fibrillation, status post ablation. 9. Diabetes. 10. DVT/PE. 11. Cardiomyopathy. 12. COPD. s/p thoracentesis oncology in put appreciated fu H&H prn blood transfusion fu stool ob GI procedures on hold Subjective Allergies: Coded Allergies: BRITTANI INHIBITORS (Unverified Allergy, Unknown, 03/19/15) Objective Last 24 Hour Vital Signs Date Time Temp Pulse Resp B/P (MAP) Pulse Ox O2 Delivery O2 Flow Rate FiO2 05/03/19 04:31 98.2 05/03/19 04:00 90 05/03/19 04:00 98.2 99 18 138/85 (102) 99 05/03/19 00:00 98.2 94 18 106/68 (81) 99 05/02/19 21:00 Nasal Cannula 3.0 05/02/19 20:30 99 125/82 05/02/19 20:00 98.7 99 18 125/92 (103) 99 05/02/19 20:00 99 05/02/19 19:59 99 22 100 Nasal Cannula 2.0 28 94 24 98 05/02/19 16:00 104 05/02/19 16:00 98.7 89 18 115/82 (93) 96 05/02/19 12:00 98.6 97 18 110/63 (79) 98 05/02/19 09:00 112 103/68 05/02/19 09:00 112 103/68 05/02/19 09:00 Nasal Cannula 3.0 05/02/19 08:00 121 05/02/19 08:00 97.3 112 17 103/68 (80) 98 Intake and Output 05/02/19 05/03/19 19:00 07:00 Intake Total 1060 ml Output Total 1050 ml Balance 1060 ml -1050 ml IV Total 200 ml Other 860 ml Output Urine Total 1050 ml # Voids 4 Laboratory Tests 05/02/19 12:56: Body Fluid Glucose [Pending], Body Fluid Total Protein [Pending] 05/03/19 06:26: White Blood Count 4.7L, Red Blood Count 3.57L, Hemoglobin 10.0L, Hematocrit 31.8L, Mean Corpuscular Volume 89, Mean Corpuscular Hemoglobin 27.9, Mean Corpuscular Hemoglobin Concent 31.4L, Red Cell Distribution Width 18.7H, Platelet Count 99L, Mean Platelet Volume 5.9L, Neutrophils (%) (Auto) , Lymphocytes (%) (Auto) , Monocytes (%) (Auto) , Eosinophils (%) (Auto) , Basophils (%) (Auto) , Neutrophils % (Manual) [Pending], Lymphocytes % (Manual) [Pending], Platelet Estimate [Pending], Platelet Morphology [Pending], Prothrombin Time [Pending], Prothromb Time International Ratio [Pending], Activated Partial Thromboplast Time [Pending], Sodium Level [Pending], Potassium Level [Pending], Chloride Level [Pending], Carbon Dioxide Level [ Pending], Blood Urea Nitrogen [Pending], Creatinine [Pending], Estimat Glomerular Filtration Rate [Pending], Glucose Level [Pending], Calcium Level [ Pending], Lactate Dehydrogenase [Pending] Height (Feet): 5 Height (Inches): 6.00 Weight (Pounds): 171 General Appearance: alert EENT: normal ENT inspection Neck: supple Cardiovascular: tachycardia Respiratory/Chest: decreased breath sounds Abdomen: normal bowel sounds, non tender, soft Extremities: non-tender Danyel Riley MD May 03, 2019 07:31
[2019-05-03 07:36] LABS: INR 1.6 (0.9-1.1)
[2019-05-03 07:43] LABS: ANION GAP 8 mmol/L (5-15); BLOOD UREA NITROGEN 32 mg/dL (7-18); CALCIUM 8.7 MG/DL (8.5-10.1); CARBON DIOXIDE 29 MMOL/L (21-32); CHLORIDE 100 MMOL/L (98-107); CREATININE 2.1 MG/DL (0.55-1.30); LACTATE DEHYDROGENASE 447 U/L (81-234); SODIUM 137 MMOL/L (136-145)
[2019-05-03 08:00] VITALS: BP 140/82
--- NOTE | 2019-05-03 08:02 | NUR ---
NURSE NOTES: Received patient from Rajeev Bush. Patient is awake sitting up eating braekfast. NO complain of pain or discomfort. Fall precautions in place. Will follow.
--- NOTE | 2019-05-03 08:22 | Pulmonology Progress Note ---
Assessment/Plan Assessment/Plan Pulmonary Progress Note HPI Patient is a : 69-year-old man with history of Congestive Heart Failure, Coronary Artery Disease, Previous [place]/stents, Hypertension, Chronic Obstructive Pulmonary Disease, Previous Cerebro Vascular Accident, Diabetes, admitted with worsening shortness of breath, cough. He is on 2 L home oxygen, coumadin, on chemotherapy for small cell lung cancer, has history of recurrent pleural effusions. Ongoing smoking history. Denies fevers. Denies lower extremity edema. Noted to have elevated NPA 1400, large right pleural effusion, h/o colon cancer PMH: Congestive Heart Failure, Coronary Artery Disease, Previous W[place]/stents, Hypertension, Chronic Obstructive Pulmonary Disease, Previous Cerebro Vascular Accident, Diabetes, Metastatic Small Cell Lung Cancer PSH: Multiple stents, thoracenteses Allergies: BRITTANI inhibitor Social Hx: Current smoker Allergies: BRITTANI INHIBITORS All Other Systems: negative except mentioned in HPI Physical Exam Vital Signs Noted General: Awake and alert HEENT: NCAT. EOMI, moist mm Neck: Supple, trachea midline Chest Wall: No tenderness, no deformity Cardiovascular: Tachycardic. S1 and S2 normal. No murmur appreciated Resp: Arrives with nonrebreather. No wheezing. Reduced BS RLZ Abdomen: Abdomen is soft, nondistended. Nontender Skin: Intact. No abrasions, laceration or rash over the exposed skin Extremities: Normal tone and bulk. Moving all extremities. No obvious deformity. No lower extremity edema. Neuro: Awake and alert. Mentating appropriately. Impression: Shortness of breath improving Recurrent pleural effusion, sp Thoracentesis - bloody Renal insufficiency Congestive Heart Failure Coronary Artery Disease Previous [place]/stents Hypertension Chronic Obstructive Pulmonary Disease Previous Cerebro Vascular Accident Diabetes Metastatic Small Cell Lung Cancer Plan - O2 PRN - HHN - AC per Hematology - Cough suppression - [place] Meds - Diuresis PRN - Monitor labs - PPX Laboratory Tests Noted Test 05/01/19 21:42 White Blood Count 10.5 K/UL (4.8-10.8) Red Blood Count 3.74 M/UL (4.70-6.10) L Hemoglobin 10.4 G/DL (14.2-18.0) L Hematocrit 33.3 % (42.0-52.0) L Mean Corpuscular Volume 89 FL (80-99) Mean Corpuscular Hemoglobin 27.8 PG (27.0-31.0) Mean Corpuscular Hemoglobin Concent 31.2 G/DL (32.0-36.0) L Red Cell Distribution Width 18.4 % (11.6-14.8) H Platelet Count 179 K/UL (150-450) Mean Platelet Volume 5.8 FL (6.5-10.1) L Neutrophils (%) (Auto) % (45.0-75.0) Lymphocytes (%) (Auto) % (20.0-45.0) Monocytes (%) (Auto) % (1.0-10.0) Eosinophils (%) (Auto) % (0.0-3.0) Basophils (%) (Auto) % (0.0-2.0) Neutrophils % (Manual) Pending Lymphocytes % (Manual) Pending Platelet Estimate Pending Platelet Morphology Pending Sodium Level 138 MMOL/L (136-145) Potassium Level 4.9 MMOL/L (3.5-5.1) Chloride Level 103 MMOL/L (98-107) Carbon Dioxide Level 25 MMOL/L (21-32) Anion Gap 10 mmol/L (5-15) Blood Urea Nitrogen 27 mg/dL (7-18) H Creatinine 1.7 MG/DL (0.55-1.30) H Estimate Glomerular Filtration Rate 48.7 mL/min (>60) Glucose Level 115 MG/DL (74-106) H Calcium Level 9.1 MG/DL (8.5-10.1) Total Bilirubin 1.1 MG/DL (0.2-1.0) H Direct Bilirubin 0.2 MG/DL (0.0-0.3) Aspartate Amino Transferase (AST) 28 U/L (15-37) Alanine Aminotransferase (ALT) 12 U/L (12-78) Alkaline Phosphatase 83 U/L (46-116) Troponin I 0.008 ng/mL (0.000-0.056) Pro-B-Type Natriuretic Peptide 1475 pg/mL (0-125) H Total Protein 7.8 G/DL (6.4-8.2) Albumin 3.0 G/DL (3.4-5.0) L Globulin 4.8 g/dL Albumin/Globulin Ratio 0.6 (1.0-2.7) L EKG Time: Rate: tachycardiac Rhythm: NSR ST Segments: no acute changes Other Impression Sinus tachycardia, few PACs, normal axis, normal intervals, no ST segment changes. Chest X-Ray: Large right-sided pleural effusion Subjective ROS Limited/Unobtainable: No Allergies: Coded Allergies: BRITTANI INHIBITORS (Unverified Allergy, Unknown, 03/19/15) Objective Last 24 Hour Vital Signs Date Time Temp Pulse Resp B/P (MAP) Pulse Ox O2 Delivery O2 Flow Rate FiO2 05/03/19 07:58 97 20 100 Nasal Cannula 2.0 28 92 23 97 05/03/19 04:31 98.2 05/03/19 04:00 90 05/03/19 04:00 98.2 99 18 138/85 (102) 99 05/03/19 00:00 98.2 94 18 106/68 (81) 99 05/02/19 21:00 Nasal Cannula 3.0 05/02/19 20:30 99 125/82 05/02/19 20:00 98.7 99 18 125/92 (103) 99 05/02/19 20:00 99 05/02/19 19:59 99 22 100 Nasal Cannula 2.0 28 94 24 98 05/02/19 16:00 104 05/02/19 16:00 98.7 89 18 115/82 (93) 96 05/02/19 12:00 98.6 97 18 110/63 (79) 98 05/02/19 09:00 112 103/68 05/02/19 09:00 112 103/68 05/02/19 09:00 Nasal Cannula 3.0 Intake and Output 05/02/19 05/03/19 19:00 07:00 Intake Total 1060 ml Output Total 1050 ml Balance 1060 ml -1050 ml IV Total 200 ml Other 860 ml Output Urine Total 1050 ml # Voids 4 Laboratory Tests 05/02/19 12:56: Body Fluid Glucose [Pending], Body Fluid Total Protein [Pending] 05/03/19 06:26: White Blood Count 4.7L, Red Blood Count 3.57L, Hemoglobin 10.0L, Hematocrit 31.8L, Mean Corpuscular Volume 89, Mean Corpuscular Hemoglobin 27.9, Mean Corpuscular Hemoglobin Concent 31.4L, Red Cell Distribution Width 18.7H, Platelet Count 99L, Mean Platelet Volume 5.9L, Neutrophils (%) (Auto) , Lymphocytes (%) (Auto) , Monocytes (%) (Auto) , Eosinophils (%) (Auto) , Basophils (%) (Auto) , Neutrophils % (Manual) [Pending], Lymphocytes % (Manual) [Pending], Platelet Estimate [Pending], Platelet Morphology [Pending], Prothrombin Time 16.8H, Prothromb Time International Ratio 1.6H, Activated Partial Thromboplast Time 38H, Sodium Level 137, Potassium Level 4.0, Chloride Level 100, Carbon Dioxide Level 29, Anion Gap 8, Blood Urea Nitrogen 32H, Creatinine 2.1H, Estimat Glomerular Filtration Rate 38.2, Glucose Level 118H, Calcium Level 8.7, Lactate Dehydrogenase 447H Current Medications Medications (Trade) Dose Ordered Sig/Allen Route PRN Reason Start Time Stop Time Status Last Admin Dose Admin Acetaminophen (Tylenol) 650 mg Q6H PRN ORAL Mild Pain/Temp > 100.5 05/02/19 01:45 06/01/19 01:44 Acetaminophen/ Hydrocodone Bitart ([place] 10/325) 1 tab Q4H PRN ORAL Severe Pain (Pain Scale 7-10) 05/02/19 06:45 05/09/19 06:44 05/02/19 13:24 Acetaminophen/ Hydrocodone Bitart ([place] 5/325) 1 tab Q4H PRN ORAL Moderate Pain (Pain Scale 4-6) 05/02/19 06:45 05/09/19 06:44 05/03/19 04:01 Albuterol/ Ipratropium (Albuterol/ Ipratropium) 3 ml Q4HRT HHN 05/02/19 11:00 05/07/19 10:59 05/03/19 08:04 Amlodipine Besylate (Norvasc) 5 mg DAILY ORAL 05/02/19 09:00 06/01/19 08:59 Atorvastatin Calcium (Lipitor) 40 mg BEDTIME ORAL 05/02/19 21:00 06/01/19 20:59 05/02/19 20:32 Carvedilol (Coreg) 25 mg EVERY 12 HOURS ORAL 05/02/19 09:00 06/01/19 08:59 05/02/19 20:30 Clonidine HCl (Catapres tab) 0.2 mg Q6H PRN ORAL sbp >160 05/02/19 06:45 06/01/19 06:44 Diphenhydramine HCl (Benadryl) 25 mg HSPRN PRN ORAL Insomnia 05/02/19 06:45 06/01/19 06:44 Furosemide (Lasix) 20 mg EVERY 12 HOURS ORAL 05/02/19 09:00 06/01/19 08:59 05/02/19 20:32 Guaifenesin/ Codeine Phosphate (Robitussin with codeine) 5 ml Q4H PRN ORAL For Cough 05/02/19 07:38 06/01/19 07:37 05/03/19 04:05 Guaifenesin/ Dextromethorphan (Robitussin DM Syrup) 10 ml Q4H PRN ORAL For Cough, 2nd choice 05/03/19 06:30 06/02/19 06:29 Nitroglycerin (Ntg) 0.4 mg Q5M PRN SL Prn Chest Pain 05/02/19 06:45 06/01/19 06:44 Ondansetron HCl (Zofran) 4 mg Q8H PRN IVP Nausea & Vomiting 05/02/19 06:45 06/01/19 06:44 Pantoprazole (Protonix) 40 mg DAILY ORAL 05/02/19 09:00 06/01/19 08:59 05/02/19 09:15 Potassium Chloride (K-Dur) 20 meq DAILY ORAL 05/03/19 09:00 06/02/19 08:59 Vitamin D (Vitamin D) 1,000 intlu DAILY ORAL 05/02/19 09:00 06/01/19 08:59 05/02/19 09:15 Moe Hand MD May 03, 2019 08:22
[2019-05-03] MEDS: Vitamin D 1000 IU Tab ORAL SCH (09:19)
[2019-05-03] MEDS: Carvedilol 25mg Tab ORAL SCH ×2 (09:19→20:45)
--- NOTE | 2019-05-03 10:48 | NUR ---
RADIOLOGY DEPT., CHEST X-RAY DONE.-P.DYE
[2019-05-03 12:00] VITALS: BP 100/56
--- NOTE | 2019-05-03 13:00 | NUR ---
NURSE NOTES: Temporarily added patient so that I could administer Robitussin with codeine for patient as the primary RN could not access the emar.
--- NOTE | 2019-05-03 13:22 | Nephrology Progress Note ---
Assessment/Plan Problem List: (1) Renal insufficiency (2) Pleural effusion (3) Lung cancer Assessment Serum Creatinine appears base line since October 2017 Pleural Effusion other Dx: Chronic obstructive pulmonary disease with acute exacerbation. Shortness of breath. Respiratory insufficiency. pleural effusions Possible underlying infection. History of lung cancer. Evidence of hypoxemia. pleural effusion- worse possible pulmonary edema Plan per pulmonary Pleural Tap adjust BP , BS , Pulm and cardiac tune up per orders adjust electrolytes Objective Objective Last 24 Hour Vital Signs Date Time Temp Pulse Resp B/P (MAP) Pulse Ox O2 Delivery O2 Flow Rate FiO2 05/03/19 12:00 99.5 83 18 100/56 (71) 95 05/03/19 12:00 101 05/03/19 11:55 90 20 100 Nasal Cannula 2.0 28 88 20 95 05/03/19 09:19 96 140/82 05/03/19 09:19 96 140/82 05/03/19 09:00 Room Air 05/03/19 08:00 99 05/03/19 08:00 98.4 96 18 140/82 (101) 100 05/03/19 07:58 97 20 100 Nasal Cannula 2.0 28 92 23 97 05/03/19 04:31 98.2 05/03/19 04:00 90 05/03/19 04:00 98.2 99 18 138/85 (102) 99 05/03/19 00:00 98.2 94 18 106/68 (81) 99 05/02/19 21:00 Nasal Cannula 3.0 05/02/19 20:30 99 125/82 05/02/19 20:00 98.7 99 18 125/92 (103) 99 05/02/19 20:00 99 05/02/19 19:59 99 22 100 Nasal Cannula 2.0 28 94 24 98 05/02/19 16:00 104 05/02/19 16:00 98.7 89 18 115/82 (93) 96 Intake and Output 05/02/19 05/03/19 19:00 07:00 Intake Total 1060 ml Output Total 1050 ml Balance 1060 ml -1050 ml IV Total 200 ml Other 860 ml Output Urine Total 1050 ml # Voids 4 Laboratory Tests 05/03/19 06:26: White Blood Count 4.7L, Red Blood Count 3.57L, Hemoglobin 10.0L, Hematocrit 31.8L, Mean Corpuscular Volume 89, Mean Corpuscular Hemoglobin 27.9, Mean Corpuscular Hemoglobin Concent 31.4L, Red Cell Distribution Width 18.7H, Platelet Count 99L, Mean Platelet Volume 5.9L, Neutrophils (%) (Auto) , Lymphocytes (%) (Auto) , Monocytes (%) (Auto) , Eosinophils (%) (Auto) , Basophils (%) (Auto) , Differential Total Cells Counted 100, Neutrophils % ( Manual) 71, Lymphocytes % (Manual) 18L, Monocytes % (Manual) 7, Eosinophils % ( Manual) 4H, Basophils % (Manual) 0, Band Neutrophils 0, Platelet Estimate DecreasedL, Platelet Morphology Normal, Hypochromasia 1+, Anisocytosis 2+, Prothrombin Time 16.8H, Prothromb Time International Ratio 1.6H, Activated Partial Thromboplast Time 38H, Sodium Level 137, Potassium Level 4.0, Chloride Level 100, Carbon Dioxide Level 29, Anion Gap 8, Blood Urea Nitrogen 32H, Creatinine 2.1H, Estimat Glomerular Filtration Rate 38.2, Glucose Level 118H, Calcium Level 8.7, Lactate Dehydrogenase 447H Height (Feet): 5 Height (Inches): 6.00 Weight (Pounds): 171 Stewart Garzon MD May 03, 2019 13:22
--- NOTE | 2019-05-03 13:43 | Diagnostic Imaging Report ---
Indication: Shortness of breath Technique: One view of the chest Comparison: 05/02/2019 Findings: Large right pleural effusion again demonstrated, may be slightly larger. Left lung and pleural space remain clear. Impression: Stable to slightly increased large right pleural effusion, over one day
--- NOTE | 2019-05-03 13:45 | Infectious Diseases Prog Note ---
Assessment/Plan Assessment/Plan IMPRESSION: Systemic inflammatory response with tachycardia and tachypnea, right pleural effusions, COPD, CHF, Metastatic colon cancer, hypertension, nicotine dependence, anemia. RECOMMENDATION: Observe off antibiotics. We will follow up pleural fluid culture. Subjective ROS Limited/Unobtainable: No Constitutional: Reports: other - dosen't feel good Respiratory: Reports: shortness of breath Cardiovascular: Reports: no symptoms Gastrointestinal/Abdominal: Reports: no symptoms Genitourinary: Reports: frequency Neurologic: Reports: no symptoms Allergies: Coded Allergies: BRITTANI INHIBITORS (Unverified Allergy, Unknown, 03/19/15) Objective Vital Signs Last 24 Hour Vital Signs Date Time Temp Pulse Resp B/P (MAP) Pulse Ox O2 Delivery O2 Flow Rate FiO2 05/03/19 12:00 99.5 83 18 100/56 (71) 95 05/03/19 12:00 101 05/03/19 11:55 90 20 100 Nasal Cannula 2.0 28 88 20 95 05/03/19 09:19 96 140/82 05/03/19 09:19 96 140/82 05/03/19 09:00 Room Air 05/03/19 08:00 99 05/03/19 08:00 98.4 96 18 140/82 (101) 100 05/03/19 07:58 97 20 100 Nasal Cannula 2.0 28 92 23 97 05/03/19 04:31 98.2 05/03/19 04:00 90 05/03/19 04:00 98.2 99 18 138/85 (102) 99 05/03/19 00:00 98.2 94 18 106/68 (81) 99 05/02/19 21:00 Nasal Cannula 3.0 05/02/19 20:30 99 125/82 05/02/19 20:00 98.7 99 18 125/92 (103) 99 05/02/19 20:00 99 05/02/19 19:59 99 22 100 Nasal Cannula 2.0 28 94 24 98 05/02/19 16:00 104 05/02/19 16:00 98.7 89 18 115/82 (93) 96 Height (Feet): 5 Height (Inches): 6.00 Weight (Pounds): 171 General Appearance: no acute distress HEENT: mucous membranes moist Respiratory/Chest: lungs clear, other - oxygen by nasal cannula Cardiovascular: normal rate Abdomen: soft, non tender Extremities: no edema Neurologic/Psychiatric: alert, oriented x 3, responsive Laboratory Tests Test 05/03/19 06:26 White Blood Count 4.7 K/UL (4.8-10.8) L Red Blood Count 3.57 M/UL (4.70-6.10) L Hemoglobin 10.0 G/DL (14.2-18.0) L Hematocrit 31.8 % (42.0-52.0) L Mean Corpuscular Volume 89 FL (80-99) Mean Corpuscular Hemoglobin 27.9 PG (27.0-31.0) Mean Corpuscular Hemoglobin Concent 31.4 G/DL (32.0-36.0) L Red Cell Distribution Width 18.7 % (11.6-14.8) H Platelet Count 99 K/UL (150-450) L Mean Platelet Volume 5.9 FL (6.5-10.1) L Neutrophils (%) (Auto) % (45.0-75.0) Lymphocytes (%) (Auto) % (20.0-45.0) Monocytes (%) (Auto) % (1.0-10.0) Eosinophils (%) (Auto) % (0.0-3.0) Basophils (%) (Auto) % (0.0-2.0) Differential Total Cells Counted 100 Neutrophils % (Manual) 71 % (45-75) Lymphocytes % (Manual) 18 % (20-45) L Monocytes % (Manual) 7 % (1-10) Eosinophils % (Manual) 4 % (0-3) H Basophils % (Manual) 0 % (0-2) Band Neutrophils 0 % (0-8) Platelet Estimate Decreased L Platelet Morphology Normal Hypochromasia 1+ Anisocytosis 2+ Prothrombin Time 16.8 SEC (9.30-11.50) H Prothromb Time International Ratio 1.6 (0.9-1.1) H Activated Partial Thromboplast Time 38 SEC (23-33) H Sodium Level 137 MMOL/L (136-145) Potassium Level 4.0 MMOL/L (3.5-5.1) Chloride Level 100 MMOL/L (98-107) Carbon Dioxide Level 29 MMOL/L (21-32) Anion Gap 8 mmol/L (5-15) Blood Urea Nitrogen 32 mg/dL (7-18) H Creatinine 2.1 MG/DL (0.55-1.30) H Estimat Glomerular Filtration Rate 38.2 mL/min (>60) Glucose Level 118 MG/DL (74-106) H Calcium Level 8.7 MG/DL (8.5-10.1) Lactate Dehydrogenase 447 U/L (81-234) H Current Medications Medications (Trade) Dose Ordered Sig/Allen Route PRN Reason Start Time Stop Time Status Last Admin Dose Admin Acetaminophen (Tylenol) 650 mg Q6H PRN ORAL Mild Pain/Temp > 100.5 05/02/19 01:45 06/01/19 01:44 Acetaminophen/ Hydrocodone Bitart ([place] 10/325) 1 tab Q4H PRN ORAL Severe Pain (Pain Scale 7-10) 05/02/19 06:45 05/09/19 06:44 05/02/19 13:24 Acetaminophen/ Hydrocodone Bitart ([place] 5/325) 1 tab Q4H PRN ORAL Moderate Pain (Pain Scale 4-6) 05/02/19 06:45 05/09/19 06:44 05/03/19 09:19 Albuterol/ Ipratropium (Albuterol/ Ipratropium) 3 ml Q4HRT HHN 05/02/19 11:00 05/07/19 10:59 05/03/19 12:01 Amlodipine Besylate (Norvasc) 5 mg DAILY ORAL 05/02/19 09:00 06/01/19 08:59 05/03/19 09:19 Atorvastatin Calcium (Lipitor) 40 mg BEDTIME ORAL 05/02/19 21:00 06/01/19 20:59 05/02/19 20:32 Carvedilol (Coreg) 25 mg EVERY 12 HOURS ORAL 05/02/19 09:00 06/01/19 08:59 05/03/19 09:19 Clonidine HCl (Catapres tab) 0.2 mg Q6H PRN ORAL sbp >160 05/02/19 06:45 06/01/19 06:44 Diphenhydramine HCl (Benadryl) 25 mg HSPRN PRN ORAL Insomnia 05/02/19 06:45 06/01/19 06:44 Furosemide (Lasix) 20 mg EVERY 12 HOURS ORAL 05/02/19 09:00 06/01/19 08:59 05/03/19 09:19 Guaifenesin/ Codeine Phosphate (Robitussin with codeine) 5 ml Q4H PRN ORAL For Cough 05/02/19 07:38 06/01/19 07:37 05/03/19 12:59 Guaifenesin/ Dextromethorphan (Robitussin DM Syrup) 10 ml Q4H PRN ORAL For Cough, 2nd choice 05/03/19 06:30 06/02/19 06:29 05/03/19 09:19 Nitroglycerin (Ntg) 0.4 mg Q5M PRN SL Prn Chest Pain 05/02/19 06:45 06/01/19 06:44 Ondansetron HCl (Zofran) 4 mg Q8H PRN IVP Nausea & Vomiting 05/02/19 06:45 06/01/19 06:44 Pantoprazole (Protonix) 40 mg DAILY ORAL 05/02/19 09:00 06/01/19 08:59 05/03/19 09:19 Potassium Chloride (K-Dur) 20 meq DAILY ORAL 05/03/19 09:00 06/02/19 08:59 05/03/19 09:18 Vitamin D (Vitamin D) 1,000 intlu DAILY ORAL 05/02/19 09:00 06/01/19 08:59 05/03/19 09:19 Jerry Yusuf MD May 03, 2019 13:45
--- NOTE | 2019-05-03 14:07 | General Progress Note ---
Assessment/Plan Assessment/Plan: COPD with exacerbation - per PUL. CAD stable CKD stable Subjective Allergies: Coded Allergies: BRITTANI INHIBITORS (Unverified Allergy, Unknown, 03/19/15) Subjective Still c/o productive yellow cough and atypical CP. Objective Last 24 Hour Vital Signs Date Time Temp Pulse Resp B/P (MAP) Pulse Ox O2 Delivery O2 Flow Rate FiO2 05/03/19 12:00 99.5 83 18 100/56 (71) 95 05/03/19 12:00 101 05/03/19 11:55 90 20 100 Nasal Cannula 2.0 28 88 20 95 05/03/19 09:19 96 140/82 05/03/19 09:19 96 140/82 05/03/19 09:00 Room Air 05/03/19 08:00 99 05/03/19 08:00 98.4 96 18 140/82 (101) 100 05/03/19 07:58 97 20 100 Nasal Cannula 2.0 28 92 23 97 05/03/19 04:31 98.2 05/03/19 04:00 90 05/03/19 04:00 98.2 99 18 138/85 (102) 99 05/03/19 00:00 98.2 94 18 106/68 (81) 99 05/02/19 21:00 Nasal Cannula 3.0 05/02/19 20:30 99 125/82 05/02/19 20:00 98.7 99 18 125/92 (103) 99 05/02/19 20:00 99 05/02/19 19:59 99 22 100 Nasal Cannula 2.0 28 94 24 98 05/02/19 16:00 104 05/02/19 16:00 98.7 89 18 115/82 (93) 96 Intake and Output 05/02/19 05/03/19 19:00 07:00 Intake Total 1060 ml Output Total 1050 ml Balance 1060 ml -1050 ml IV Total 200 ml Other 860 ml Output Urine Total 1050 ml # Voids 4 Laboratory Tests 05/03/19 06:26: White Blood Count 4.7L, Red Blood Count 3.57L, Hemoglobin 10.0L, Hematocrit 31.8L, Mean Corpuscular Volume 89, Mean Corpuscular Hemoglobin 27.9, Mean Corpuscular Hemoglobin Concent 31.4L, Red Cell Distribution Width 18.7H, Platelet Count 99L, Mean Platelet Volume 5.9L, Neutrophils (%) (Auto) , Lymphocytes (%) (Auto) , Monocytes (%) (Auto) , Eosinophils (%) (Auto) , Basophils (%) (Auto) , Differential Total Cells Counted 100, Neutrophils % ( Manual) 71, Lymphocytes % (Manual) 18L, Monocytes % (Manual) 7, Eosinophils % ( Manual) 4H, Basophils % (Manual) 0, Band Neutrophils 0, Platelet Estimate DecreasedL, Platelet Morphology Normal, Hypochromasia 1+, Anisocytosis 2+, Prothrombin Time 16.8H, Prothromb Time International Ratio 1.6H, Activated Partial Thromboplast Time 38H, Sodium Level 137, Potassium Level 4.0, Chloride Level 100, Carbon Dioxide Level 29, Anion Gap 8, Blood Urea Nitrogen 32H, Creatinine 2.1H, Estimat Glomerular Filtration Rate 38.2, Glucose Level 118H, Calcium Level 8.7, Lactate Dehydrogenase 447H Height (Feet): 5 Height (Inches): 6.00 Weight (Pounds): 171 Objective CV RR Lungs B wheezes + ronchi. Abd SNT. BS + E No CCE Harsh Maher MD May 03, 2019 14:07
--- NOTE | 2019-05-03 15:32 | NUR ---
CASE MANAGEMENT: INITIAL REVIEW 69 YR OLD MALE BIBA FROM HOME CC: DYSPNEA / RESP DISTRESS PMH: SMALL CELL LUNG CA . CAD . COPD . CHF SI: PLEURAL EFFUSION . RENAL INSUFFICIENCY 98.3 110 20 147/81 98% NON-REBREATHER ' H/H 10.4/33.3 BUN 27 CREAT 1.7 BG 115 BNP 1475 IS:ALBUTEROL HHN X1 ATROVENT HHN X1 TESSALON PERLES PO X1 \: 2E TELE UNIT DCP: HOME WHEN MEDICALLY STABLE PLAN: THORACENTESIS IN AM CASE MANAGEMENT: REVIEW 05/02/19 SI: PLEURAL EFFUSION . RENAL INSUFFICIENCY . LUNG CA 97.3 112 17 103/68 98%ON NC 3L H/H 9.6/29.5 BUN 30 CREAT 1.9 BG 133 [id number] IS:LASIX PO BID K-DUR PO QD NORVASC PO QD COREG PO BID PROTONIX PO QD ROBITUSSIN Q4/PRN ALBUTEROL HHN Q4HR LIPITOR PO QHS \: 2E TELE UNIT DCP: HOME WHEN MEDICALLY STABLE PLAN: THORACENTESIS THIS AM CASE MANAGEMENT: REVIEW 05/03/19 SI: PLEURAL EFFUSION . RENAL INSUFFICIENCY . LUNG CA . PULMONARY EMBOLISM METASTATIC COLON CA 99.5 101 18 100/56 95%ON NC 2L H/H 10.0/31.8 BUN 32 CREAT 2.1 BG 118 IS:LASIX PO BID K-DUR PO QD NORVASC PO QD COREG PO BID PROTONIX PO QD ROBITUSSIN Q4/PRN ALBUTEROL HHN Q4HR LIPITOR PO QHS \: 2E TELE UNIT DCP: HOME WHEN MEDICALLY STABLE PLAN: CXR TODAY- SLIGHT INCREASE PLEURAL EFFUSION
[2019-05-03 16:00] VITALS: BP 110/60
--- NOTE | 2019-05-03 19:31 | NUR ---
HAND-OFF: Report given to Rajeev Mcleod. Plan of care endorsed.
--- NOTE | 2019-05-03 19:58 | NUR ---
NURSE NOTES: RECEIVED PATIENT RESTING IN BED, NO COMPLAINTS OF PAIN AT THIS TIME: FALL AND ASPIRATION PRECAUTIONS IN PLACE: CALL LIGHT, BEDSIDE TABLE AND URINAL WITHIN REACH, BED IN LOW POSITION AND BED ALARM ON; HOB ELEVATED. PLAN OF CARE REVIEWED.
[2019-05-03 20:00] VITALS: BP 123/73
[2019-05-03] MEDS: Atorvastatin 20mg tab ORAL SCH (20:45)
[2019-05-04] VITALS: BP 140/78
[2019-05-04] MEDS: guaiFENesin w/Codeine 5ml Liq ud ORAL PRN ×4 (00:13→23:08)
[2019-05-04] MEDS: Albuterol/Ipratropium 3ml neb HHN SCH ×6 (03:00→23:22)
[2019-05-04 04:00] VITALS: BP 109/69
[2019-05-04] MEDS: HYDROcodone/Acetamin 5/325 tab ORAL PRN ×2 (06:18→18:56)
--- NOTE | 2019-05-04 06:58 | NUR ---
HAND-OFF: Report given to Justen HUBBARD RN. PATIENT RESTING IN BED, NO SIGNS OF DISTRESS NOTED.
--- NOTE | 2019-05-04 07:09 | NUR ---
NURSE NOTES: Received patient from Rajeev Mcleod. Patient resting comfortably in bed. No complain of pain or discomfort at this time. Fall precautions in place. Will continue to follow.
[2019-05-04 07:40] LABS: HEMOGLOBIN 9.4 G/DL (14.2-18.0); MEAN CORPUSCULAR VOLUME 89 FL (80-99); PLATELET COUNT 88 K/UL (150-450); RED BLOOD COUNT 3.35 M/UL (4.70-6.10); RED CELL DISTRIBUTION WIDTH 18.9 % (11.6-14.8); WHITE BLOOD COUNT 10.8 K/UL (4.8-10.8)
[2019-05-04 08:00] VITALS: BP 124/67
[2019-05-04 08:08] LABS: INR 1.4 (0.9-1.1)
[2019-05-04 08:14] LABS: ANION GAP 10 mmol/L (5-15); BLOOD UREA NITROGEN 34 mg/dL (7-18); CALCIUM 8.7 MG/DL (8.5-10.1); CARBON DIOXIDE 27 MMOL/L (21-32); CHLORIDE 99 MMOL/L (98-107); CREATININE 2.2 MG/DL (0.55-1.30); LACTATE DEHYDROGENASE 451 U/L (81-234); POTASSIUM 3.7 MMOL/L (3.5-5.1); SODIUM 136 MMOL/L (136-145)
[2019-05-04] MEDS: Carvedilol 25mg Tab ORAL SCH ×2 (09:16→21:00)
[2019-05-04] MEDS: Vitamin D 1000 IU Tab ORAL SCH (09:17)
--- NOTE | 2019-05-04 11:23 | NUR ---
CASE MANAGEMENT: REVIEW 05/04/19 SI: PLEURAL EFFUSION . RENAL INSUFFICIENCY . LUNG CA . PULMONARY EMBOLISM METASTATIC COLON CA 98.3 106 16 124/67 93%ON NC 3L H/H 9.4/30.0 BUN 34 CREAT 2.2 BG 125 LDH 541 PT/INR 14.2/1.4 [id number] IS:LASIX PO BID K-DUR PO QD NORVASC PO QD COREG PO BID ROBITUSSIN Q4/PRN ALBUTEROL HHN Q4HR LIPITOR PO QHS PROTONIX PO QD NORCO OP Q4HR/PRN \: 2E TELE UNIT DCP: HOME WHEN MEDICALLY STABLE PLAN: F/U WITH PLEURAL FLUID CULTURE CXR TODAY- SLIGHT INCREASE PLEURAL EFFUSION POSS DC
[2019-05-04 12:00] VITALS: BP 121/70
--- NOTE | 2019-05-04 12:25 | Pulmonology Progress Note ---
Assessment/Plan Assessment/Plan Pulmonary Progress Note HPI Patient is a : 69-year-old man with history of Congestive Heart Failure, Coronary Artery Disease, Previous SC/stents, Hypertension, Chronic Obstructive Pulmonary Disease, Previous Cerebro Vascular Accident, Diabetes, admitted with worsening shortness of breath, cough. He is on 2 L home oxygen, coumadin, on chemotherapy for small cell lung cancer, has history of recurrent pleural effusions. Ongoing smoking history. Denies fevers. Denies lower extremity edema. Noted to have elevated NPA 1400, large right pleural effusion, h/o colon cancer PMH: Congestive Heart Failure, Coronary Artery Disease, Previous SC/stents, Hypertension, Chronic Obstructive Pulmonary Disease, Previous Cerebro Vascular Accident, Diabetes, Metastatic Small Cell Lung Cancer PSH: Multiple stents, thoracenteses Social Hx: Current smoker Allergies: BRITTANI INHIBITORS Less SOB Physical Exam Vital Signs Noted General: Awake and alert HEENT: NCAT. EOMI, moist mm Neck: Supple, trachea midline Chest Wall: No tenderness, no deformity Cardiovascular: Tachycardic. S1 and S2 normal. No murmur appreciated Resp: Arrives with nonrebreather. No wheezing. Reduced BS RLZ Abdomen: Abdomen is soft, nondistended. Nontender Skin: Intact. No abrasions, laceration or rash over the exposed skin Extremities: Normal tone and bulk. Moving all extremities. No obvious deformity. No lower extremity edema. Neuro: Awake and alert. Mentating appropriately. Impression: Shortness of breath improving Recurrent pleural effusion, sp Thoracentesis - bloody Renal insufficiency Congestive Heart Failure Coronary Artery Disease Previous SC/stents Hypertension Chronic Obstructive Pulmonary Disease Previous Cerebro Vascular Accident Diabetes Metastatic Small Cell Lung Cancer Plan - O2 PRN - HHN - AC per Hematology - Cough suppression - [employer] Meds - Diuresis PRN - Monitor labs - PPX Laboratory Tests Noted Test 05/01/19 21:42 White Blood Count 10.5 K/UL (4.8-10.8) Red Blood Count 3.74 M/UL (4.70-6.10) L Hemoglobin 10.4 G/DL (14.2-18.0) L Hematocrit 33.3 % (42.0-52.0) L Mean Corpuscular Volume 89 FL (80-99) Mean Corpuscular Hemoglobin 27.8 PG (27.0-31.0) Mean Corpuscular Hemoglobin Concent 31.2 G/DL (32.0-36.0) L Red Cell Distribution Width 18.4 % (11.6-14.8) H Platelet Count 179 K/UL (150-450) Mean Platelet Volume 5.8 FL (6.5-10.1) L Neutrophils (%) (Auto) % (45.0-75.0) Lymphocytes (%) (Auto) % (20.0-45.0) Monocytes (%) (Auto) % (1.0-10.0) Eosinophils (%) (Auto) % (0.0-3.0) Basophils (%) (Auto) % (0.0-2.0) Neutrophils % (Manual) Pending Lymphocytes % (Manual) Pending Platelet Estimate Pending Platelet Morphology Pending Sodium Level 138 MMOL/L (136-145) Potassium Level 4.9 MMOL/L (3.5-5.1) Chloride Level 103 MMOL/L (98-107) Carbon Dioxide Level 25 MMOL/L (21-32) Anion Gap 10 mmol/L (5-15) Blood Urea Nitrogen 27 mg/dL (7-18) H Creatinine 1.7 MG/DL (0.55-1.30) H Estimate Glomerular Filtration Rate 48.7 mL/min (>60) Glucose Level 115 MG/DL (74-106) H Calcium Level 9.1 MG/DL (8.5-10.1) Total Bilirubin 1.1 MG/DL (0.2-1.0) H Direct Bilirubin 0.2 MG/DL (0.0-0.3) Aspartate Amino Transferase (AST) 28 U/L (15-37) Alanine Aminotransferase (ALT) 12 U/L (12-78) Alkaline Phosphatase 83 U/L (46-116) Troponin I 0.008 ng/mL (0.000-0.056) Pro-B-Type Natriuretic Peptide 1475 pg/mL (0-125) H Total Protein 7.8 G/DL (6.4-8.2) Albumin 3.0 G/DL (3.4-5.0) L Globulin 4.8 g/dL Albumin/Globulin Ratio 0.6 (1.0-2.7) L EKG Time: Rate: tachycardiac Rhythm: NSR ST Segments: no acute changes Other Impression Sinus tachycardia, few PACs, normal axis, normal intervals, no ST segment changes. Chest X-Ray: Large right-sided pleural effusion Subjective ROS Limited/Unobtainable: No Allergies: Coded Allergies: BRITTANI INHIBITORS (Unverified Allergy, Unknown, 03/19/15) Objective Last 24 Hour Vital Signs Date Time Temp Pulse Resp B/P (MAP) Pulse Ox O2 Delivery O2 Flow Rate FiO2 05/04/19 12:00 98.1 98 15 121/70 (87) 94 05/04/19 10:07 94 20 97 Nasal Cannula 2.0 28 90 20 95 05/04/19 09:16 106 124/67 05/04/19 09:16 106 124/67 05/04/19 09:00 Nasal Cannula 3.0 05/04/19 08:00 107 05/04/19 08:00 98.3 106 16 124/67 (86) 93 05/04/19 06:57 97 18 97 Nasal Cannula 2.0 28 101 20 93 05/04/19 04:00 98.8 93 18 109/69 (82) 98 05/04/19 04:00 96 05/04/19 00:43 99.3 05/04/19 00:23 88 18 100 Nasal Cannula 2.0 28 83 18 95 05/04/19 00:00 87 05/04/19 00:00 100.1 84 20 140/78 (98) 95 05/03/19 21:00 Nasal Cannula 3.0 05/03/19 20:45 103 123/73 05/03/19 20:00 102 05/03/19 20:00 99.0 103 20 123/73 (90) 94 05/03/19 19:36 90 18 100 Nasal Cannula 2.0 28 88 18 97 05/03/19 16:00 95 05/03/19 16:00 98.6 87 20 110/60 (77) 96 05/03/19 15:09 88 22 100 Nasal Cannula 2.0 28 83 18 96 Intake and Output 05/03/19 05/04/19 19:00 07:00 Intake Total 1000 ml 240 ml Balance 1000 ml 240 ml Intake Oral 1000 ml 240 ml # Voids 6 3 # Bowel Movements 1 1 Laboratory Tests 05/04/19 06:33: White Blood Count 10.8#, Red Blood Count 3.35L, Hemoglobin 9.4L, Hematocrit 30.0L, Mean Corpuscular Volume 89, Mean Corpuscular Hemoglobin 28.0, Mean Corpuscular Hemoglobin Concent 31.3L, Red Cell Distribution Width 18.9H, Platelet Count 88L, Mean Platelet Volume 6.5, Neutrophils (%) (Auto) , Lymphocytes (%) (Auto) , Monocytes (%) (Auto) , Eosinophils (%) (Auto) , Basophils (%) (Auto) , Differential Total Cells Counted 100, Neutrophils % ( Manual) 80H, Lymphocytes % (Manual) 4L, Monocytes % (Manual) 6, Eosinophils % ( Manual) 3, Basophils % (Manual) 0, Band Neutrophils 7, Platelet Estimate DecreasedL, Platelet Morphology Normal, Hypochromasia 1+, Anisocytosis 1+, Prothrombin Time 14.2H, Prothromb Time International Ratio 1.4H, Activated Partial Thromboplast Time 39H, Sodium Level 136, Potassium Level 3.7, Chloride Level 99, Carbon Dioxide Level 27, Anion Gap 10, Blood Urea Nitrogen 34H, Creatinine 2.2H, Estimat Glomerular Filtration Rate 36.1, Glucose Level 125H, Calcium Level 8.7, Lactate Dehydrogenase 451H Current Medications Medications (Trade) Dose Ordered Sig/Allen Route PRN Reason Start Time Stop Time Status Last Admin Dose Admin Acetaminophen (Tylenol) 650 mg Q6H PRN ORAL Mild Pain/Temp > 100.5 05/02/19 01:45 06/01/19 01:44 05/04/19 00:13 Acetaminophen/ Hydrocodone Bitart ([place] 10/325) 1 tab Q4H PRN ORAL Severe Pain (Pain Scale 7-10) 05/02/19 06:45 05/09/19 06:44 05/02/19 13:24 Acetaminophen/ Hydrocodone Bitart ([place] 5/325) 1 tab Q4H PRN ORAL Moderate Pain (Pain Scale 4-6) 05/02/19 06:45 05/09/19 06:44 05/04/19 06:18 Albuterol/ Ipratropium (Albuterol/ Ipratropium) 3 ml Q4HRT HHN 05/02/19 11:00 05/07/19 10:59 05/04/19 10:07 Amlodipine Besylate (Norvasc) 5 mg DAILY ORAL 05/02/19 09:00 06/01/19 08:59 05/04/19 09:16 Atorvastatin Calcium (Lipitor) 40 mg BEDTIME ORAL 05/02/19 21:00 06/01/19 20:59 05/03/19 20:45 Carvedilol (Coreg) 25 mg EVERY 12 HOURS ORAL 05/02/19 09:00 06/01/19 08:59 05/04/19 09:16 Clonidine HCl (Catapres tab) 0.2 mg Q6H PRN ORAL sbp >160 05/02/19 06:45 06/01/19 06:44 Diphenhydramine HCl (Benadryl) 25 mg HSPRN PRN ORAL Insomnia 05/02/19 06:45 06/01/19 06:44 Furosemide (Lasix) 20 mg EVERY 12 HOURS ORAL 05/02/19 09:00 06/01/19 08:59 05/04/19 09:17 Guaifenesin/ Codeine Phosphate (Robitussin with codeine) 5 ml Q4H PRN ORAL For Cough 05/02/19 07:38 06/01/19 07:37 05/04/19 06:21 Guaifenesin/ Dextromethorphan (Robitussin DM Syrup) 10 ml Q4H PRN ORAL For Cough, 2nd choice 05/03/19 06:30 06/02/19 06:29 05/03/19 09:19 Nitroglycerin (Ntg) 0.4 mg Q5M PRN SL Prn Chest Pain 05/02/19 06:45 06/01/19 06:44 Ondansetron HCl (Zofran) 4 mg Q8H PRN IVP Nausea & Vomiting 05/02/19 06:45 06/01/19 06:44 Pantoprazole (Protonix) 40 mg DAILY ORAL 05/02/19 09:00 06/01/19 08:59 05/04/19 09:16 Potassium Chloride (K-Dur) 20 meq DAILY ORAL 05/03/19 09:00 06/02/19 08:59 05/04/19 09:16 Vitamin D (Vitamin D) 1,000 intlu DAILY ORAL 05/02/19 09:00 06/01/19 08:59 05/04/19 09:17 Moe Hand MD May 04, 2019 12:25
--- NOTE | 2019-05-04 12:48 | GI Progress Note ---
Assessment/Plan Problems: (1) Pleural effusion ICD Codes: J90 - Pleural effusion, not elsewhere classified SNOMED: 98801426 (2) Lung cancer ICD Codes: C34.90 - Malignant neoplasm of unspecified part of unspecified bronchus or lung SNOMED: 634310718 (3) Anemia ICD Codes: D64.9 - Anemia, unspecified SNOMED: 936405997 Status: unchanged Status Narrative Discussed with Dr. Riley. Assessment/Plan 1. Anemia. 2. metastatic colon cancer. 3. Pleural effusion. 4. Constipation. 5. Renal insufficiency. 6. CVA. 7. Coronary artery disease and [place]. 8. Paroxysmal atrial fibrillation, status post ablation. 9. Diabetes. 10. DVT/PE. 11. Cardiomyopathy. 12. COPD. s/p thoracentesis supportive care oncology in put appreciated fu H&H prn blood transfusion fu stool ob no plans for GI procedures The patient was seen and examined at bedside and all new and available data was reviewed in the patients chart. I agree with the above findings, impression and plan. (Patient seen earlier today. Signature stamp does not reflect patient encounter time.). - Danyel Riley MD Subjective Gastrointestinal/Abdominal: Reports: no symptoms Objective Last 24 Hour Vital Signs Date Time Temp Pulse Resp B/P (MAP) Pulse Ox O2 Delivery O2 Flow Rate FiO2 05/04/19 12:00 98.1 98 15 121/70 (87) 94 05/04/19 10:07 94 20 97 Nasal Cannula 2.0 28 90 20 95 05/04/19 09:16 106 124/67 05/04/19 09:16 106 124/67 05/04/19 09:00 Nasal Cannula 3.0 05/04/19 08:00 107 05/04/19 08:00 98.3 106 16 124/67 (86) 93 05/04/19 06:57 97 18 97 Nasal Cannula 2.0 28 101 20 93 05/04/19 04:00 98.8 93 18 109/69 (82) 98 05/04/19 04:00 96 05/04/19 00:43 99.3 05/04/19 00:23 88 18 100 Nasal Cannula 2.0 28 83 18 95 05/04/19 00:00 87 05/04/19 00:00 100.1 84 20 140/78 (98) 95 05/03/19 21:00 Nasal Cannula 3.0 05/03/19 20:45 103 123/73 05/03/19 20:00 102 05/03/19 20:00 99.0 103 20 123/73 (90) 94 05/03/19 19:36 90 18 100 Nasal Cannula 2.0 28 88 18 97 05/03/19 16:00 95 05/03/19 16:00 98.6 87 20 110/60 (77) 96 05/03/19 15:09 88 22 100 Nasal Cannula 2.0 28 83 18 96 Intake and Output 05/03/19 05/04/19 18:59 06:59 Intake Total 1000 ml 240 ml Balance 1000 ml 240 ml Intake Oral 1000 ml 240 ml # Voids 6 3 # Bowel Movements 1 1 Laboratory Tests Test 05/04/19 06:33 White Blood Count 10.8 K/UL (4.8-10.8) # Red Blood Count 3.35 M/UL (4.70-6.10) L Hemoglobin 9.4 G/DL (14.2-18.0) L Hematocrit 30.0 % (42.0-52.0) L Mean Corpuscular Volume 89 FL (80-99) Mean Corpuscular Hemoglobin 28.0 PG (27.0-31.0) Mean Corpuscular Hemoglobin Concent 31.3 G/DL (32.0-36.0) L Red Cell Distribution Width 18.9 % (11.6-14.8) H Platelet Count 88 K/UL (150-450) L Mean Platelet Volume 6.5 FL (6.5-10.1) Neutrophils (%) (Auto) % (45.0-75.0) Lymphocytes (%) (Auto) % (20.0-45.0) Monocytes (%) (Auto) % (1.0-10.0) Eosinophils (%) (Auto) % (0.0-3.0) Basophils (%) (Auto) % (0.0-2.0) Differential Total Cells Counted 100 Neutrophils % (Manual) 80 % (45-75) H Lymphocytes % (Manual) 4 % (20-45) L Monocytes % (Manual) 6 % (1-10) Eosinophils % (Manual) 3 % (0-3) Basophils % (Manual) 0 % (0-2) Band Neutrophils 7 % (0-8) Platelet Estimate Decreased L Platelet Morphology Normal Hypochromasia 1+ Anisocytosis 1+ Prothrombin Time 14.2 SEC (9.30-11.50) H Prothromb Time International Ratio 1.4 (0.9-1.1) H Activated Partial Thromboplast Time 39 SEC (23-33) H Sodium Level 136 MMOL/L (136-145) Potassium Level 3.7 MMOL/L (3.5-5.1) Chloride Level 99 MMOL/L (98-107) Carbon Dioxide Level 27 MMOL/L (21-32) Anion Gap 10 mmol/L (5-15) Blood Urea Nitrogen 34 mg/dL (7-18) H Creatinine 2.2 MG/DL (0.55-1.30) H Estimat Glomerular Filtration Rate 36.1 mL/min (>60) Glucose Level 125 MG/DL (74-106) H Calcium Level 8.7 MG/DL (8.5-10.1) Lactate Dehydrogenase 451 U/L (81-234) H Height (Feet): 5 Height (Inches): 6.00 Weight (Pounds): 141 General Appearance: WD/WN, no apparent distress, alert Cardiovascular: normal rate Respiratory/Chest: normal breath sounds, no respiratory distress Abdominal Exam: normal bowel sounds, non tender, soft Extremities: non-tender Dale Puente NP May 04, 2019 12:48
--- NOTE | 2019-05-04 15:27 | Infectious Diseases Prog Note ---
Assessment/Plan Assessment/Plan IMPRESSION: Systemic inflammatory response with tachycardia and tachypnea, right pleural effusions, COPD, CHF, Metastatic colon cancer, hypertension, nicotine dependence, anemia. RECOMMENDATION: Observe off antibiotics. Subjective ROS Limited/Unobtainable: Yes Constitutional: Reports: fever, other - low grade fever last night Allergies: Coded Allergies: BRITTANI INHIBITORS (Unverified Allergy, Unknown, 03/19/15) Objective Vital Signs Last 24 Hour Vital Signs Date Time Temp Pulse Resp B/P (MAP) Pulse Ox O2 Delivery O2 Flow Rate FiO2 05/04/19 14:16 84 18 100 Nasal Cannula 2.0 28 88 18 97 05/04/19 12:00 98.1 98 15 121/70 (87) 94 05/04/19 10:07 94 20 97 Nasal Cannula 2.0 28 90 20 95 05/04/19 09:16 106 124/67 05/04/19 09:16 106 124/67 05/04/19 09:00 Nasal Cannula 3.0 05/04/19 08:00 107 05/04/19 08:00 98.3 106 16 124/67 (86) 93 05/04/19 06:57 97 18 97 Nasal Cannula 2.0 28 101 20 93 05/04/19 04:00 98.8 93 18 109/69 (82) 98 05/04/19 04:00 96 05/04/19 00:43 99.3 05/04/19 00:23 88 18 100 Nasal Cannula 2.0 28 83 18 95 05/04/19 00:00 87 05/04/19 00:00 100.1 84 20 140/78 (98) 95 05/03/19 21:00 Nasal Cannula 3.0 05/03/19 20:45 103 123/73 05/03/19 20:00 102 05/03/19 20:00 99.0 103 20 123/73 (90) 94 05/03/19 19:36 90 18 100 Nasal Cannula 2.0 28 88 18 97 05/03/19 16:00 95 05/03/19 16:00 98.6 87 20 110/60 (77) 96 Height (Feet): 5 Height (Inches): 6.00 Weight (Pounds): 141 General Appearance: no acute distress Respiratory/Chest: decreased breath sounds Cardiovascular: normal rate Abdomen: soft, non tender Extremities: no edema Neurologic/Psychiatric: other - sleeping Laboratory Tests Test 05/04/19 06:33 White Blood Count 10.8 K/UL (4.8-10.8) # Red Blood Count 3.35 M/UL (4.70-6.10) L Hemoglobin 9.4 G/DL (14.2-18.0) L Hematocrit 30.0 % (42.0-52.0) L Mean Corpuscular Volume 89 FL (80-99) Mean Corpuscular Hemoglobin 28.0 PG (27.0-31.0) Mean Corpuscular Hemoglobin Concent 31.3 G/DL (32.0-36.0) L Red Cell Distribution Width 18.9 % (11.6-14.8) H Platelet Count 88 K/UL (150-450) L Mean Platelet Volume 6.5 FL (6.5-10.1) Neutrophils (%) (Auto) % (45.0-75.0) Lymphocytes (%) (Auto) % (20.0-45.0) Monocytes (%) (Auto) % (1.0-10.0) Eosinophils (%) (Auto) % (0.0-3.0) Basophils (%) (Auto) % (0.0-2.0) Differential Total Cells Counted 100 Neutrophils % (Manual) 80 % (45-75) H Lymphocytes % (Manual) 4 % (20-45) L Monocytes % (Manual) 6 % (1-10) Eosinophils % (Manual) 3 % (0-3) Basophils % (Manual) 0 % (0-2) Band Neutrophils 7 % (0-8) Platelet Estimate Decreased L Platelet Morphology Normal Hypochromasia 1+ Anisocytosis 1+ Prothrombin Time 14.2 SEC (9.30-11.50) H Prothromb Time International Ratio 1.4 (0.9-1.1) H Activated Partial Thromboplast Time 39 SEC (23-33) H Sodium Level 136 MMOL/L (136-145) Potassium Level 3.7 MMOL/L (3.5-5.1) Chloride Level 99 MMOL/L (98-107) Carbon Dioxide Level 27 MMOL/L (21-32) Anion Gap 10 mmol/L (5-15) Blood Urea Nitrogen 34 mg/dL (7-18) H Creatinine 2.2 MG/DL (0.55-1.30) H Estimat Glomerular Filtration Rate 36.1 mL/min (>60) Glucose Level 125 MG/DL (74-106) H Calcium Level 8.7 MG/DL (8.5-10.1) Lactate Dehydrogenase 451 U/L (81-234) H Current Medications Medications (Trade) Dose Ordered Sig/Allen Route PRN Reason Start Time Stop Time Status Last Admin Dose Admin Acetaminophen (Tylenol) 650 mg Q6H PRN ORAL Mild Pain/Temp > 100.5 05/02/19 01:45 06/01/19 01:44 05/04/19 00:13 Acetaminophen/ Hydrocodone Bitart ([place] 10/325) 1 tab Q4H PRN ORAL Severe Pain (Pain Scale 7-10) 05/02/19 06:45 05/09/19 06:44 05/02/19 13:24 Acetaminophen/ Hydrocodone Bitart ([place] 5/325) 1 tab Q4H PRN ORAL Moderate Pain (Pain Scale 4-6) 05/02/19 06:45 05/09/19 06:44 05/04/19 06:18 Albuterol/ Ipratropium (Albuterol/ Ipratropium) 3 ml Q4HRT HHN 05/02/19 11:00 05/07/19 10:59 05/04/19 14:15 Amlodipine Besylate (Norvasc) 5 mg DAILY ORAL 05/02/19 09:00 06/01/19 08:59 05/04/19 09:16 Atorvastatin Calcium (Lipitor) 40 mg BEDTIME ORAL 05/02/19 21:00 06/01/19 20:59 05/03/19 20:45 Carvedilol (Coreg) 25 mg EVERY 12 HOURS ORAL 05/02/19 09:00 06/01/19 08:59 05/04/19 09:16 Clonidine HCl (Catapres tab) 0.2 mg Q6H PRN ORAL sbp >160 05/02/19 06:45 06/01/19 06:44 Diphenhydramine HCl (Benadryl) 25 mg HSPRN PRN ORAL Insomnia 05/02/19 06:45 06/01/19 06:44 Guaifenesin/ Codeine Phosphate (Robitussin with codeine) 5 ml Q4H PRN ORAL For Cough 05/02/19 07:38 06/01/19 07:37 05/04/19 06:21 Guaifenesin/ Dextromethorphan (Robitussin DM Syrup) 10 ml Q4H PRN ORAL For Cough, 2nd choice 05/03/19 06:30 06/02/19 06:29 05/03/19 09:19 Nitroglycerin (Ntg) 0.4 mg Q5M PRN SL Prn Chest Pain 05/02/19 06:45 06/01/19 06:44 Ondansetron HCl (Zofran) 4 mg Q8H PRN IVP Nausea & Vomiting 05/02/19 06:45 06/01/19 06:44 Pantoprazole (Protonix) 40 mg DAILY ORAL 05/02/19 09:00 06/01/19 08:59 05/04/19 09:16 Jerry Yusuf MD May 04, 2019 15:27
[2019-05-04 16:00] VITALS: BP 111/66
--- NOTE | 2019-05-04 19:02 | Hematology/Onc Progress Note ---
Assessment/Plan Assessment/Plan ASSESSMENT AND RECOMMENDATION: 1. Metastatic colon cancer. Getting triple combination chemotherapy, intermittent development of small right-sided pleural effusion. The patient has required thoracentesis in the past. Continue to closely monitor the patient 's fluid status. --> continue office f/ufor chemo --> using picc line for access --> maintain access as is --> likely cause of right sided effusion --> as per recs by Dr. Hand 2. Pulmonary embolism on CT, on anticoagulation on Coumadin. --> inr goal 2-3 --> on coumadin --> inr 1.4 3. Anemia due to underlying chronic disease. --> ferritin is replete, hold off on iron 4. Thrombocytopenia, likely due to recently administered chemotherapy. --> closely monitor for improvement --> 88k 5. Coagulopathy, likely due to underlying liver disease. --> correct before procedure 6. Pleural effusion --> s/p thora --> robitussin dose increased I appreciate consultation and kevin RN Subjective Allergies: Coded Allergies: BRITTANI INHIBITORS (Unverified Allergy, Unknown, 03/19/15) Subjective 05/03: no events to report, no bleeding, some shortness of breath, COUGHING, increase robitussin 05/04: on tele, no acute events, cxr with increased effusion, labs reviewed Objective Objective Current Medications Medications (Trade) Dose Ordered Sig/Allen Route PRN Reason Start Time Stop Time Status Last Admin Dose Admin Acetaminophen (Tylenol) 650 mg Q6H PRN ORAL Mild Pain/Temp > 100.5 05/02/19 01:45 06/01/19 01:44 05/04/19 00:13 Acetaminophen/ Hydrocodone Bitart ([place] 10/325) 1 tab Q4H PRN ORAL Severe Pain (Pain Scale 7-10) 05/02/19 06:45 05/09/19 06:44 05/02/19 13:24 Acetaminophen/ Hydrocodone Bitart ([place] 5/325) 1 tab Q4H PRN ORAL Moderate Pain (Pain Scale 4-6) 05/02/19 06:45 05/09/19 06:44 05/04/19 06:18 Albuterol/ Ipratropium (Albuterol/ Ipratropium) 3 ml Q4HRT HHN 05/02/19 11:00 05/07/19 10:59 05/04/19 14:15 Amlodipine Besylate (Norvasc) 5 mg DAILY ORAL 05/02/19 09:00 06/01/19 08:59 05/04/19 09:16 Atorvastatin Calcium (Lipitor) 40 mg BEDTIME ORAL 05/02/19 21:00 06/01/19 20:59 05/03/19 20:45 Carvedilol (Coreg) 25 mg EVERY 12 HOURS ORAL 05/02/19 09:00 06/01/19 08:59 05/04/19 09:16 Clonidine HCl (Catapres tab) 0.2 mg Q6H PRN ORAL sbp >160 05/02/19 06:45 06/01/19 06:44 Diphenhydramine HCl (Benadryl) 25 mg HSPRN PRN ORAL Insomnia 05/02/19 06:45 06/01/19 06:44 Guaifenesin/ Codeine Phosphate (Robitussin with codeine) 5 ml Q4H PRN ORAL For Cough 05/02/19 07:38 06/01/19 07:37 05/04/19 15:33 Guaifenesin/ Dextromethorphan (Robitussin DM Syrup) 10 ml Q4H PRN ORAL For Cough, 2nd choice 05/03/19 06:30 06/02/19 06:29 05/03/19 09:19 Nitroglycerin (Ntg) 0.4 mg Q5M PRN SL Prn Chest Pain 05/02/19 06:45 06/01/19 06:44 Ondansetron HCl (Zofran) 4 mg Q8H PRN IVP Nausea & Vomiting 05/02/19 06:45 06/01/19 06:44 Pantoprazole (Protonix) 40 mg DAILY ORAL 05/02/19 09:00 06/01/19 08:59 05/04/19 09:16 Last 24 Hour Vital Signs Date Time Temp Pulse Resp B/P (MAP) Pulse Ox O2 Delivery O2 Flow Rate FiO2 05/04/19 16:00 98 05/04/19 16:00 98.1 102 16 111/66 (81) 94 05/04/19 14:16 84 18 100 Nasal Cannula 2.0 28 88 18 97 05/04/19 12:00 90 05/04/19 12:00 98.1 98 15 121/70 (87) 94 05/04/19 10:07 94 20 97 Nasal Cannula 2.0 28 90 20 95 05/04/19 09:16 106 124/67 05/04/19 09:16 106 124/67 05/04/19 09:00 Nasal Cannula 3.0 05/04/19 08:00 107 05/04/19 08:00 98.3 106 16 124/67 (86) 93 05/04/19 06:57 97 18 97 Nasal Cannula 2.0 28 101 20 93 05/04/19 04:00 98.8 93 18 109/69 (82) 98 05/04/19 04:00 96 05/04/19 00:43 99.3 05/04/19 00:23 88 18 100 Nasal Cannula 2.0 28 83 18 95 05/04/19 00:00 87 05/04/19 00:00 100.1 84 20 140/78 (98) 95 05/03/19 21:00 Nasal Cannula 3.0 05/03/19 20:45 103 123/73 05/03/19 20:00 102 05/03/19 20:00 99.0 103 20 123/73 (90) 94 05/03/19 19:36 90 18 100 Nasal Cannula 2.0 28 88 18 97 05/03/19 16:00 95 05/03/19 16:00 98.6 87 20 110/60 (77) 96 05/03/19 15:09 88 22 100 Nasal Cannula 2.0 28 83 18 96 05/03/19 12:00 99.5 83 18 100/56 (71) 95 05/03/19 12:00 101 05/03/19 11:55 90 20 100 Nasal Cannula 2.0 28 88 20 95 05/03/19 09:19 96 140/82 05/03/19 09:19 96 140/82 05/03/19 09:00 Room Air 05/03/19 08:00 99 05/03/19 08:00 98.4 96 18 140/82 (101) 100 05/03/19 07:58 97 20 100 Nasal Cannula 2.0 28 92 23 97 05/03/19 04:31 98.2 05/03/19 04:00 90 05/03/19 04:00 98.2 99 18 138/85 (102) 99 12/17/19 00:00 98.2 94 18 106/68 (81) 99 05/02/19 21:00 Nasal Cannula 3.0 05/02/19 20:30 99 125/82 05/02/19 20:00 98.7 99 18 125/92 (103) 99 05/02/19 20:00 99 05/02/19 19:59 99 22 100 Nasal Cannula 2.0 28 94 24 98 Intake and Output 05/03/19 05/04/19 19:00 07:00 Intake Total 1000 ml 240 ml Balance 1000 ml 240 ml Intake Oral 1000 ml 240 ml # Voids 6 3 # Bowel Movements 1 1 Labs Test 05/01/19 21:42 05/02/19 05:35 05/02/19 07:20 05/02/19 12:56 White Blood Count 10.5 K/UL (4.8-10.8) 8.9 K/UL (4.8-10.8) Red Blood Count 3.74 M/UL (4.70-6.10) 3.41 M/UL (4.70-6.10) Hemoglobin 10.4 G/DL (14.2-18.0) 9.6 G/DL (14.2-18.0) Hematocrit 33.3 % (42.0-52.0) 29.5 % (42.0-52.0) Mean Corpuscular Volume 89 FL (80-99) 87 FL (80-99) Mean Corpuscular Hemoglobin 27.8 PG (27.0-31.0) 28.1 PG (27.0-31.0) Mean Corpuscular Hemoglobin Concent 31.2 G/DL (32.0-36.0) 32.5 G/DL (32.0-36.0) Red Cell Distribution Width 18.4 % (11.6-14.8) 18.2 % (11.6-14.8) Platelet Count 179 K/UL (150-450) 142 K/UL (150-450) Mean Platelet Volume 5.8 FL (6.5-10.1) 5.7 FL (6.5-10.1) Neutrophils (%) (Auto) % (45.0-75.0) 83.2 % (45.0-75.0) Lymphocytes (%) (Auto) % (20.0-45.0) 10.2 % (20.0-45.0) Monocytes (%) (Auto) % (1.0-10.0) 2.9 % (1.0-10.0) Eosinophils (%) (Auto) % (0.0-3.0) 3.5 % (0.0-3.0) Basophils (%) (Auto) % (0.0-2.0) 0.2 % (0.0-2.0) Differential Total Cells Counted 100 Neutrophils % (Manual) 85 % (45-75) Lymphocytes % (Manual) 9 % (20-45) Monocytes % (Manual) 2 % (1-10) Eosinophils % (Manual) 3 % (0-3) Basophils % (Manual) 0 % (0-2) Band Neutrophils 1 % (0-8) Platelet Estimate Adequate Platelet Morphology Normal Hypochromasia 1+ Anisocytosis 1+ Sodium Level 138 MMOL/L (136-145) 138 MMOL/L (136-145) Potassium Level 4.9 MMOL/L (3.5-5.1) 3.8 MMOL/L (3.5-5.1) Chloride Level 103 MMOL/L (98-107) 102 MMOL/L (98-107) Carbon Dioxide Level 25 MMOL/L (21-32) 29 MMOL/L (21-32) Anion Gap 10 mmol/L (5-15) 8 mmol/L (5-15) Blood Urea Nitrogen 27 mg/dL (7-18) 30 mg/dL (7-18) Creatinine 1.7 MG/DL (0.55-1.30) 1.9 MG/DL (0.55-1.30) Estimat Glomerular Filtration Rate 48.7 mL/min (>60) 42.8 mL/min (>60) Glucose Level 115 MG/DL (74-106) 133 MG/DL (74-106) Calcium Level 9.1 MG/DL (8.5-10.1) 8.7 MG/DL (8.5-10.1) Total Bilirubin 1.1 MG/DL (0.2-1.0) 0.9 MG/DL (0.2-1.0) Direct Bilirubin 0.2 MG/DL (0.0-0.3) Aspartate Amino Transf (AST/SGOT) 28 U/L (15-37) 23 U/L (15-37) Alanine Aminotransferase (ALT/SGPT) 12 U/L (12-78) 15 U/L (12-78) Alkaline Phosphatase 83 U/L (46-116) 82 U/L (46-116) Troponin I 0.008 ng/mL (0.000-0.056) Pro-B-Type Natriuretic Peptide 1475 pg/mL (0-125) 1295 pg/mL (0-125) Total Protein 7.8 G/DL (6.4-8.2) 7.3 G/DL (6.4-8.2) Albumin 3.0 G/DL (3.4-5.0) 2.9 G/DL (3.4-5.0) Globulin 4.8 g/dL 4.4 g/dL Albumin/Globulin Ratio 0.6 (1.0-2.7) 0.7 (1.0-2.7) Hemoglobin A1c 6.7 % (4.3-6.0) Uric Acid 7.2 MG/DL (2.6-7.2) Phosphorus Level 3.2 MG/DL (2.5-4.9) Magnesium Level 1.6 MG/DL (1.8-2.4) Iron Level 41 ug/dL (50-175) Total Iron Binding Capacity 147 ug/dL (250-450) Percent Iron Saturation 28 % (15-50) Unsaturated Iron Binding 106 ug/dL (112-346) Ferritin 984 NG/ML (8-388) Gamma Glutamyl Transpeptidase 21 U/L (5-85) C-Reactive Protein, Quantitative 11.4 mg/dL (0.00-0.90) Triglycerides Level 164 MG/DL (30-150) Cholesterol Level 99 MG/DL (< 200) LDL Cholesterol 46 mg/dL (<100) HDL Cholesterol 16 MG/DL (40-60) Cholesterol/HDL Ratio 6.2 (3.3-4.4) Vitamin B12 Level 1868 PG/ML (193-986) Folate 47.2 NG/ML (8.6-58.9) Thyroid Stimulating Hormone (TSH) 3.975 uiU/mL (0.358-3.740) Prothrombin Time 15.4 SEC (9.30-11.50) Prothromb Time International Ratio 1.5 (0.9-1.1) Activated Partial Thromboplast Time 35 SEC (23-33) Body Fluid Glucose 46 mg/dL (.) Body Fluid Total Protein 4.0 g/dL (.) Test 05/03/19 06:26 05/04/19 06:33 White Blood Count 4.7 K/UL (4.8-10.8) 10.8 K/UL (4.8-10.8) Red Blood Count 3.57 M/UL (4.70-6.10) 3.35 M/UL (4.70-6.10) Hemoglobin 10.0 G/DL (14.2-18.0) 9.4 G/DL (14.2-18.0) Hematocrit 31.8 % (42.0-52.0) 30.0 % (42.0-52.0) Mean Corpuscular Volume 89 FL (80-99) 89 FL (80-99) Mean Corpuscular Hemoglobin 27.9 PG (27.0-31.0) 28.0 PG (27.0-31.0) Mean Corpuscular Hemoglobin Concent 31.4 G/DL (32.0-36.0) 31.3 G/DL (32.0-36.0) Red Cell Distribution Width 18.7 % (11.6-14.8) 18.9 % (11.6-14.8) Platelet Count 99 K/UL (150-450) 88 K/UL (150-450) Mean Platelet Volume 5.9 FL (6.5-10.1) 6.5 FL (6.5-10.1) Neutrophils (%) (Auto) % (45.0-75.0) % (45.0-75.0) Lymphocytes (%) (Auto) % (20.0-45.0) % (20.0-45.0) Monocytes (%) (Auto) % (1.0-10.0) % (1.0-10.0) Eosinophils (%) (Auto) % (0.0-3.0) % (0.0-3.0) Basophils (%) (Auto) % (0.0-2.0) % (0.0-2.0) Differential Total Cells Counted 100 100 Neutrophils % (Manual) 71 % (45-75) 80 % (45-75) Lymphocytes % (Manual) 18 % (20-45) 4 % (20-45) Monocytes % (Manual) 7 % (1-10) 6 % (1-10) Eosinophils % (Manual) 4 % (0-3) 3 % (0-3) Basophils % (Manual) 0 % (0-2) 0 % (0-2) Band Neutrophils 0 % (0-8) 7 % (0-8) Platelet Estimate Decreased Decreased Platelet Morphology Normal Normal Hypochromasia 1+ 1+ Anisocytosis 2+ 1+ Prothrombin Time 16.8 SEC (9.30-11.50) 14.2 SEC (9.30-11.50) Prothromb Time International Ratio 1.6 (0.9-1.1) 1.4 (0.9-1.1) Activated Partial Thromboplast Time 38 SEC (23-33) 39 SEC (23-33) Sodium Level 137 MMOL/L (136-145) 136 MMOL/L (136-145) Potassium Level 4.0 MMOL/L (3.5-5.1) 3.7 MMOL/L (3.5-5.1) Chloride Level 100 MMOL/L (98-107) 99 MMOL/L (98-107) Carbon Dioxide Level 29 MMOL/L (21-32) 27 MMOL/L (21-32) Anion Gap 8 mmol/L (5-15) 10 mmol/L (5-15) Blood Urea Nitrogen 32 mg/dL (7-18) 34 mg/dL (7-18) Creatinine 2.1 MG/DL (0.55-1.30) 2.2 MG/DL (0.55-1.30) Estimat Glomerular Filtration Rate 38.2 mL/min (>60) 36.1 mL/min (>60) Glucose Level 118 MG/DL (74-106) 125 MG/DL (74-106) Calcium Level 8.7 MG/DL (8.5-10.1) 8.7 MG/DL (8.5-10.1) Lactate Dehydrogenase 447 U/L (81-234) 451 U/L (81-234) Height (Feet): 5 Height (Inches): 6.00 Weight (Pounds): 141 Objective PHYSICAL EXAMINATION: VITAL SIGNS: Reviewed. GENERAL: No acute distress. LUNGS: decreased bs right side lung ++ crackles CARDIOVASCULAR: Regular rate. No S3 or S4. ABDOMEN: Soft, nontender, and nondistended. EXTREMITIES: 1+ edema. Anurag Salguero MD May 04, 2019 19:02
--- NOTE | 2019-05-04 19:55 | NUR ---
HAND-OFF: Report given to Rajeev Palmer.
--- NOTE | 2019-05-04 19:56 | NUR ---
NURSE NOTES: Received report from Laila Jean Baptiste RN. Pt is ao x3 calm and comfortable. Bed alarm is on. Rails are up x3. electronic device monitor is on. Call light is within reach.
[2019-05-04 20:00] VITALS: BP 110/65
[2019-05-04] MEDS: Atorvastatin 20mg tab ORAL SCH (21:20)
[2019-05-05] VITALS: BP 127/80
[2019-05-05] MEDS: Albuterol/Ipratropium 3ml neb HHN SCH ×2 (03:00→07:36)
[2019-05-05] MEDS: guaiFENesin w/Codeine 5ml Liq ud ORAL PRN (04:39)
[2019-05-05] MEDS: HYDROcodone/Acetamin 10/325 tab ORAL PRN (04:45)
[2019-05-05 06:13] LABS: HEMATOCRIT 28.6 % (42.0-52.0); HEMOGLOBIN 8.9 G/DL (14.2-18.0); MEAN CORPUSCULAR VOLUME 90 FL (80-99); PLATELET COUNT 87 K/UL (150-450); RED CELL DISTRIBUTION WIDTH 18.9 % (11.6-14.8); WHITE BLOOD COUNT 14.9 K/UL (4.8-10.8)
[2019-05-05 06:25] LABS: INR 1.2 (0.9-1.1)
--- NOTE | 2019-05-05 06:34 | General Progress Note ---
Assessment/Plan Status: unchanged Assessment/Plan: Assessment/Plan 1. Anemia. 2. metastatic colon cancer. 3. Pleural effusion. 4. Constipation. 5. Renal insufficiency. 6. CVA. 7. Coronary artery disease and PR. 8. Paroxysmal atrial fibrillation, status post ablation. 9. Diabetes. 10. DVT/PE. 11. Cardiomyopathy. 12. COPD. s/p thoracentesis supportive care oncology in put appreciated fu H&H prn blood transfusion fu stool ob no plans for GI procedures Subjective Allergies: Coded Allergies: BRITTANI INHIBITORS (Unverified Allergy, Unknown, 03/19/15) Objective Last 24 Hour Vital Signs Date Time Temp Pulse Resp B/P (MAP) Pulse Ox O2 Delivery O2 Flow Rate FiO2 05/05/19 04:00 102 05/05/19 00:00 99.0 98 18 127/80 (96) 93 05/05/19 00:00 105 05/04/19 23:24 60 18 100 Nasal Cannula 2.0 28 54 18 98 05/04/19 21:00 Nasal Cannula 3.0 05/04/19 21:00 109 110/65 05/04/19 20:00 98.9 109 18 110/65 (80) 93 05/04/19 20:00 110 05/04/19 19:30 59 18 97 Nasal Cannula 2.0 28 52 18 95 05/04/19 16:00 98 05/04/19 16:00 98.1 102 16 111/66 (81) 94 05/04/19 14:16 84 18 100 Nasal Cannula 2.0 28 88 18 97 05/04/19 12:00 90 05/04/19 12:00 98.1 98 15 121/70 (87) 94 05/04/19 10:07 94 20 97 Nasal Cannula 2.0 28 90 20 95 05/04/19 09:16 106 124/67 05/04/19 09:16 106 124/67 05/04/19 09:00 Nasal Cannula 3.0 05/04/19 08:00 107 05/04/19 08:00 98.3 106 16 124/67 (86) 93 05/04/19 06:57 97 18 97 Nasal Cannula 2.0 28 101 20 93 Intake and Output 05/04/19 05/05/19 19:00 07:00 # Voids 4 Laboratory Tests 05/05/19 05:54: White Blood Count 14.9H, Red Blood Count 3.20L, Hemoglobin 8.9L, Hematocrit 28.6L, Mean Corpuscular Volume 90, Mean Corpuscular Hemoglobin 27.9, Mean Corpuscular Hemoglobin Concent 31.2L, Red Cell Distribution Width 18.9H, Platelet Count 87L, Mean Platelet Volume 7.3, Neutrophils (%) (Auto) , Lymphocytes (%) (Auto) , Monocytes (%) (Auto) , Eosinophils (%) (Auto) , Basophils (%) (Auto) , Neutrophils % (Manual) [Pending], Lymphocytes % (Manual) [Pending], Platelet Estimate [Pending], Platelet Morphology [Pending], Prothrombin Time 13.0H, Prothromb Time International Ratio 1.2H, Activated Partial Thromboplast Time 37H, Sodium Level [Pending], Potassium Level [Pending] , Chloride Level [Pending], Carbon Dioxide Level [Pending], Blood Urea Nitrogen [Pending], Creatinine [Pending], Estimat Glomerular Filtration Rate [Pending], Glucose Level [Pending], Calcium Level [Pending], Lactate Dehydrogenase [Pending ] Height (Feet): 5 Height (Inches): 6.00 Weight (Pounds): 141 General Appearance: alert EENT: normal ENT inspection Neck: supple Cardiovascular: normal rate Respiratory/Chest: decreased breath sounds Abdomen: normal bowel sounds, non tender, soft Extremities: non-tender Danyel Riley MD May 05, 2019 06:34
[2019-05-05 06:42] LABS: ANION GAP 9 mmol/L (5-15); BLOOD UREA NITROGEN 29 mg/dL (7-18); CALCIUM 8.5 MG/DL (8.5-10.1); CARBON DIOXIDE 28 MMOL/L (21-32); CHLORIDE 99 MMOL/L (98-107); LACTATE DEHYDROGENASE 340 U/L (81-234); SODIUM 136 MMOL/L (136-145)
--- NOTE | 2019-05-05 07:20 | NUR ---
HAND-OFF: Report given to Macario Mukherjee RN.
--- NOTE | 2019-05-05 09:06 | NUR ---
NURSE NOTES: Pt extremely angry about delayed breakfast, also angry about exactly who was supposed to be charge nurse. Pt sts he would not trust anyone at this hospital after what he's been through. Pt signed AMA form, tele box, ID band and IV access removed. Pt is now dressing prior to leaving.
--- NOTE | 2019-05-05 09:14 | Hematology/Onc Progress Note ---
Assessment/Plan Assessment/Plan ASSESSMENT AND RECOMMENDATION: 1. Metastatic colon cancer. Getting triple combination chemotherapy, intermittent development of small right-sided pleural effusion. The patient has required thoracentesis in the past. Continue to closely monitor the patient 's fluid status. --> continue office f/ufor chemo --> using picc line for access --> maintain access as is --> likely cause of right sided effusion --> as per recs by Dr. Hand --> is s/p thora on this admission 2. Pulmonary embolism on CT, on anticoagulation on Coumadin. --> inr goal 2-3 --> on coumadin and restart as outpatient --> inr 1.4 3. Anemia due to underlying chronic disease. --> ferritin is replete, hold off on iron --> hgb 8.9 4. Thrombocytopenia, likely due to recently administered chemotherapy. --> closely monitor for improvement --> 88k --> 87k 5. Coagulopathy, likely due to underlying liver disease. --> correct before procedure 6. Pleural effusion --> s/p thora --> robitussin dose increased I appreciate consultation and kevin RN Subjective HEENT: Denies: no symptoms, eye pain, blurred vision, tearing, double vision, ear pain, ear discharge, nose pain, nose congestion, throat pain, throat swelling, mouth pain, mouth swelling, other Cardiovascular: Denies: no symptoms, chest pain, edema, irregular heart rate, lightheadedness, palpitations, syncope, other Respiratory: Denies: no symptoms, cough, shortness of breath, SOB with excertion, SOB at rest, sputum, wheezing, other Gastrointestinal/Abdominal: Denies: no symptoms, abdomen distended, abdominal pain, black stools, tarry stools, blood in stool, constipated, diarrhea, difficulty swallowing, nausea, poor appetite, poor fluid intake, rectal bleeding , vomiting, other Genitourinary: Denies: no symptoms, burning, discharge, frequency, flank pain, hematuria, incontinence, pain, urgency, other Neurologic/Psychiatric: Denies: no symptoms, anxiety, depressed, emotional problems, headache, numbness, paresthesia, pre-existing deficit, seizure, tingling, tremors, weakness, other Endocrine: Denies: no symptoms, excessive sweating, flushing, intolerance to cold, intolerance to heat, increased hunger, increased thirst, increased urine, unexplained weight gain, unexplained weight loss, other Allergies: Coded Allergies: BRITTANI INHIBITORS (Unverified Allergy, Unknown, 03/19/15) Subjective 05/03: no events to report, no bleeding, some shortness of breath, COUGHING, increase robitussin 05/04: on tele, no acute events, cxr with increased effusion, labs reviewed 05/05: no events, otherwise feeling better, labs are pending for review, doesn' t want to miss chemo Objective Objective Current Medications Medications (Trade) Dose Ordered Sig/Allen Route PRN Reason Start Time Stop Time Status Last Admin Dose Admin Acetaminophen (Tylenol) 650 mg Q6H PRN ORAL Mild Pain/Temp > 100.5 05/02/19 01:45 06/01/19 01:44 05/04/19 00:13 Acetaminophen/ Hydrocodone Bitart ([place] 10/325) 1 tab Q4H PRN ORAL Severe Pain (Pain Scale 7-10) 05/02/19 06:45 05/09/19 06:44 05/05/19 04:45 Acetaminophen/ Hydrocodone Bitart ([place] 5/325) 1 tab Q4H PRN ORAL Moderate Pain (Pain Scale 4-6) 05/02/19 06:45 05/09/19 06:44 05/04/19 18:56 Albuterol/ Ipratropium (Albuterol/ Ipratropium) 3 ml Q4HRT HHN 05/02/19 11:00 05/07/19 10:59 05/05/19 07:36 Amlodipine Besylate (Norvasc) 5 mg DAILY ORAL 05/02/19 09:00 06/01/19 08:59 05/04/19 09:16 Atorvastatin Calcium (Lipitor) 40 mg BEDTIME ORAL 05/02/19 21:00 06/01/19 20:59 05/04/19 21:20 Carvedilol (Coreg) 25 mg EVERY 12 HOURS ORAL 05/02/19 09:00 06/01/19 08:59 05/04/19 09:16 Clonidine HCl (Catapres tab) 0.2 mg Q6H PRN ORAL sbp >160 05/02/19 06:45 06/01/19 06:44 Diphenhydramine HCl (Benadryl) 25 mg HSPRN PRN ORAL Insomnia 05/02/19 06:45 06/01/19 06:44 Guaifenesin/ Codeine Phosphate (Robitussin with codeine) 5 ml Q4H PRN ORAL For Cough 05/02/19 07:38 06/01/19 07:37 05/05/19 04:39 Guaifenesin/ Dextromethorphan (Robitussin DM Syrup) 10 ml Q4H PRN ORAL For Cough, 2nd choice 05/03/19 06:30 06/02/19 06:29 05/03/19 09:19 Nitroglycerin (Ntg) 0.4 mg Q5M PRN SL Prn Chest Pain 05/02/19 06:45 06/01/19 06:44 Ondansetron HCl (Zofran) 4 mg Q8H PRN IVP Nausea & Vomiting 05/02/19 06:45 06/01/19 06:44 Pantoprazole (Protonix) 40 mg DAILY ORAL 05/02/19 09:00 06/01/19 08:59 05/04/19 09:16 Last 24 Hour Vital Signs Date Time Temp Pulse Resp B/P (MAP) Pulse Ox O2 Delivery O2 Flow Rate FiO2 05/05/19 08:49 Nasal Cannula 3.0 05/05/19 08:00 111 05/05/19 07:46 95 18 100 Nasal Cannula 2.0 28 98 18 96 05/05/19 07:36 96 Nasal Cannula 2.0 28 05/05/19 04:00 102 05/05/19 00:00 99.0 98 18 127/80 (96) 93 05/05/19 00:00 105 05/04/19 23:24 60 18 100 Nasal Cannula 2.0 28 54 18 98 05/04/19 21:00 Nasal Cannula 3.0 05/04/19 21:00 109 110/65 05/04/19 20:00 98.9 109 18 110/65 (80) 93 05/04/19 20:00 110 05/04/19 19:30 59 18 97 Nasal Cannula 2.0 28 52 18 95 05/04/19 16:00 98 05/04/19 16:00 98.1 102 16 111/66 (81) 94 05/04/19 14:16 84 18 100 Nasal Cannula 2.0 28 88 18 97 05/04/19 12:00 90 05/04/19 12:00 98.1 98 15 121/70 (87) 94 05/04/19 10:07 94 20 97 Nasal Cannula 2.0 28 90 20 95 05/04/19 09:16 106 124/67 05/04/19 09:16 106 124/67 05/04/19 09:00 Nasal Cannula 3.0 05/04/19 08:00 107 05/04/19 08:00 98.3 106 16 124/67 (86) 93 05/04/19 06:57 97 18 97 Nasal Cannula 2.0 28 101 20 93 05/04/19 04:00 98.8 93 18 109/69 (82) 98 05/04/19 04:00 96 05/04/19 00:43 99.3 05/04/19 00:23 88 18 100 Nasal Cannula 2.0 28 83 18 95 05/04/19 00:00 87 05/04/19 00:00 100.1 84 20 140/78 (98) 95 05/03/19 21:00 Nasal Cannula 3.0 05/03/19 20:45 103 123/73 05/03/19 20:00 102 05/03/19 20:00 99.0 103 20 123/73 (90) 94 05/03/19 19:36 90 18 100 Nasal Cannula 2.0 28 88 18 97 05/03/19 16:00 95 05/03/19 16:00 98.6 87 20 110/60 (77) 96 05/03/19 15:09 88 22 100 Nasal Cannula 2.0 28 83 18 96 05/03/19 12:00 99.5 83 18 100/56 (71) 95 05/03/19 12:00 101 05/03/19 11:55 90 20 100 Nasal Cannula 2.0 28 88 20 95 05/03/19 09:19 96 140/82 05/03/19 09:19 96 140/82 Intake and Output 05/04/19 05/05/19 19:00 07:00 Intake Total 500 ml Output Total 450 ml Balance 50 ml Intake Oral 500 ml Output Urine Total 450 ml # Voids 4 Labs Test 05/02/19 12:56 05/03/19 06:26 05/04/19 06:33 05/05/19 05:54 Body Fluid Glucose 46 mg/dL (.) Body Fluid Total Protein 4.0 g/dL (.) White Blood Count 4.7 K/UL (4.8-10.8) 10.8 K/UL (4.8-10.8) 14.9 K/UL (4.8-10.8) Red Blood Count 3.57 M/UL (4.70-6.10) 3.35 M/UL (4.70-6.10) 3.20 M/UL (4.70-6.10) Hemoglobin 10.0 G/DL (14.2-18.0) 9.4 G/DL (14.2-18.0) 8.9 G/DL (14.2-18.0) Hematocrit 31.8 % (42.0-52.0) 30.0 % (42.0-52.0) 28.6 % (42.0-52.0) Mean Corpuscular Volume 89 FL (80-99) 89 FL (80-99) 90 FL (80-99) Mean Corpuscular Hemoglobin 27.9 PG (27.0-31.0) 28.0 PG (27.0-31.0) 27.9 PG (27.0-31.0) Mean Corpuscular Hemoglobin Concent 31.4 G/DL (32.0-36.0) 31.3 G/DL (32.0-36.0) 31.2 G/DL (32.0-36.0) Red Cell Distribution Width 18.7 % (11.6-14.8) 18.9 % (11.6-14.8) 18.9 % (11.6-14.8) Platelet Count 99 K/UL (150-450) 88 K/UL (150-450) 87 K/UL (150-450) Mean Platelet Volume 5.9 FL (6.5-10.1) 6.5 FL (6.5-10.1) 7.3 FL (6.5-10.1) Neutrophils (%) (Auto) % (45.0-75.0) % (45.0-75.0) % (45.0-75.0) Lymphocytes (%) (Auto) % (20.0-45.0) % (20.0-45.0) % (20.0-45.0) Monocytes (%) (Auto) % (1.0-10.0) % (1.0-10.0) % (1.0-10.0) Eosinophils (%) (Auto) % (0.0-3.0) % (0.0-3.0) % (0.0-3.0) Basophils (%) (Auto) % (0.0-2.0) % (0.0-2.0) % (0.0-2.0) Differential Total Cells Counted 100 100 Neutrophils % (Manual) 71 % (45-75) 80 % (45-75) Lymphocytes % (Manual) 18 % (20-45) 4 % (20-45) Monocytes % (Manual) 7 % (1-10) 6 % (1-10) Eosinophils % (Manual) 4 % (0-3) 3 % (0-3) Basophils % (Manual) 0 % (0-2) 0 % (0-2) Band Neutrophils 0 % (0-8) 7 % (0-8) Platelet Estimate Decreased Decreased Platelet Morphology Normal Normal Hypochromasia 1+ 1+ Anisocytosis 2+ 1+ Prothrombin Time 16.8 SEC (9.30-11.50) 14.2 SEC (9.30-11.50) 13.0 SEC (9.30-11.50) Prothromb Time International Ratio 1.6 (0.9-1.1) 1.4 (0.9-1.1) 1.2 (0.9-1.1) Activated Partial Thromboplast Time 38 SEC (23-33) 39 SEC (23-33) 37 SEC (23-33) Sodium Level 137 MMOL/L (136-145) 136 MMOL/L (136-145) 136 MMOL/L (136-145) Potassium Level 4.0 MMOL/L (3.5-5.1) 3.7 MMOL/L (3.5-5.1) 4.0 MMOL/L (3.5-5.1) Chloride Level 100 MMOL/L (98-107) 99 MMOL/L (98-107) 99 MMOL/L (98-107) Carbon Dioxide Level 29 MMOL/L (21-32) 27 MMOL/L (21-32) 28 MMOL/L (21-32) Anion Gap 8 mmol/L (5-15) 10 mmol/L (5-15) 9 mmol/L (5-15) Blood Urea Nitrogen 32 mg/dL (7-18) 34 mg/dL (7-18) 29 mg/dL (7-18) Creatinine 2.1 MG/DL (0.55-1.30) 2.2 MG/DL (0.55-1.30) 2.0 MG/DL (0.55-1.30) Estimat Glomerular Filtration Rate 38.2 mL/min (>60) 36.1 mL/min (>60) 40.4 mL/min (>60) Glucose Level 118 MG/DL (74-106) 125 MG/DL (74-106) 122 MG/DL (74-106) Calcium Level 8.7 MG/DL (8.5-10.1) 8.7 MG/DL (8.5-10.1) 8.5 MG/DL (8.5-10.1) Lactate Dehydrogenase 447 U/L (81-234) 451 U/L (81-234) 340 U/L (81-234) Height (Feet): 5 Height (Inches): 6.00 Weight (Pounds): 141 Objective PHYSICAL EXAMINATION: VITAL SIGNS: Reviewed. GENERAL: No acute distress. LUNGS: decreased bs right side lung ++ crackles CARDIOVASCULAR: Regular rate. No S3 or S4. ABDOMEN: Soft, nontender, and nondistended. EXTREMITIES: 1+ edema. Anurag Salguero MD May 05, 2019 09:14
--- NOTE | 2019-05-09 09:36 | Cardiology Report ---
APPROVED REPORT EKG Measurement Heart [id number] <Conclusion> Sinus tachycardia with premature atrial complexes Possible Left atrial enlargement Anterior infarct, age undetermined Abnormal ECG
--- NOTE | 2019-05-09 12:18 | Discharge Summary ---
Discharge Summary Discharge Summary _ Discharge summary DATE OF ADMISSION: 05/01/2019 DATE OF DISCHARGE: 05/05/2019 Patient left AGAINST MEDICAL ADVICE REASON FOR ADMISSION: [] 69 years old male CONSULTANTS: development team lead neurologist pulmonary Dr. Hand ID specialist Dr. Yusuf Past medical history of congestive heart failure COPD metastatic colon CA, hypertensive heart disease, severe peripheral vascular disease, history of DVT, history of pulmonary emboli, paroxysmal atrial fibrillation, status post ablation, BPH, coronary artery disease stage III status post chemotherapy multifactorial anemia, ischemic heart disease status post stent, chronic kidney disease, multifactorial, severe peripheral vascular disease, central venous occlusion, presented to emergency department with recurrent pleural effusion. Patient reported worsening shortness of breath. Patient continued smoking. Patient reported worsening cough. No fever or chills. No lower extremity edema. Upon evaluation patient was tachycardic and required 100% nonrebreathing mask. Chest x-ray revealed large right pleural effusion laboratory work-up revealed anemia with hemoglobin 10.4 hematocrit 33.3 platelet count 175. 179. No leukocytosis. Troponin negative BUN 27, creatinine 1.7. proBNP 1475. Patient subsequently admitted to telemetry floor for further management GI specialist Dr. Riley card cleaner bilingual school psychologist/oncologist Dr. Martinez surgery psychiatrist HOSPITAL COURSE: [] Patient admitted to telemetry floor. Patient undergone ultrasound-guided thoracentesis of large right pleural effusion will be 300 mL of grossly bloody fluid. Fluid was observed under sonography to be loculated/septated and only small amount of fluid was able to be aspirated. Chest x-ray revealed only minimally improved massive right pleural effusion no further thoracentesis was attempted thoracentesis was limited due to loculation of the fluid. Venous duplex bilateral lower extremity revealed no evidence of acute DVT. Supplemental oxygen provided and titrated to keep oximetry above 92% pulmonary toilet with bronchodilator provided. Mold Insert Changer followed. Antitussive provided as needed. GI prophylaxis provided. Patient had a pulmonary emboli on the CT scan and was on anticoagulation with Coumadin with a goal INR of 2-3. Coumadin restarted. Anemia was due to underlying chronic disease ferritin was repeated and bilingual school psychologist recommended to hold off on iron. Thrombocytopenia was likely due to recently admitted for chemotherapy counts are closely monitor platelet count from 88 down to 87. GI specialist followed. Hemoglobin hematocrit were closely monitored goal to keep hemoglobin above 7. No plans for GI procedure at this time. Stool for occult okay prior to discharge hemoglobin 8.9 hematocrit 28.6. Supportive care provided. Infectious disease specialist seen and evaluated patient. (Especially patient had systemic inflammatory response with tachycardia and tachypnea. No need for antibiotic at this time. Patient concern consult The smoking. Patient declined nicotine patch. Blood pressure was managed with current regimen calcium channel tameka and beta-tameka clonidine was on board as needed for blood pressure spike. Statin continued. GI prophylaxis provided. 12 9 patient became extremely angry about delayed backslash patient subsequently decided to leave AGAINST MEDICAL ADVICE. My AMA. The risks and consequences of signing AGAINST MEDICAL ADVICE were discussed with patient in detail. Patient verbalized understanding, nevertheless signed AMA form and left. FINAL DIAGNOSES: 1. [] Recurrent pleural effusion Status post thoracentesis right pleural effusion loculated Renal insufficiency Congestive heart failure Coronary artery disease with history of prior stents Hypertension COPD History of CVA Diabetes mellitus Metastatic colon CA Metastatic small cell lung cancer Pulmonary embolism on CT Anemia due to underlying chronic disease Thrombocytopenia likely due to recent chemotherapy Coagulopathy Anemia Constipation Paroxysmal atrial fibrillation status post ablation DVT/PE Cardiomyopathy Nicotine dependency DISCHARGE MEDICATIONS: See Medication Reconciliation list. DISCHARGE INSTRUCTIONS: [] I have been assigned to dictate discharge summary for this account. I was not involved in the patient's management. Bhumika Montilla NP May 09, 2019 12:18
== END 2019-05-05 09:10 | disposition left against medical advice (07) | DRG 194 ==
LOC: EDBD 21:26 → EMR 21:50 → 2E 22:32 → EDBEDREQ 23:23
PROC: 0W993ZZ Drainage of Right Pleural Cavity, Percutaneous Approach (ICD-10-PCS; principal; 2019-05-02)
DX: J90 Pleural effusion, not elsewhere classified (principal); J44.1 Chronic obstructive pulmonary disease with (acute) exacerbation; I13.0 Hypertensive heart and chronic kidney disease with heart failure and stage 1 through stage 4 chronic kidney disease, or unspecified chronic kidney disease; E11.22 Type 2 diabetes mellitus with diabetic chronic kidney disease; C18.9 Malignant neoplasm of colon, unspecified; C78.00 Secondary malignant neoplasm of unspecified lung; F17.200 Nicotine dependence, unspecified, uncomplicated; I25.10 Atherosclerotic heart disease of native coronary artery without angina pectoris; Z95.5 Presence of coronary angioplasty implant and graft; I26.99 Other pulmonary embolism without acute cor pulmonale; N18.9 Chronic kidney disease, unspecified; I50.9 Heart failure, unspecified; Z86.718 Personal history of other venous thrombosis and embolism; Z86.711 Personal history of pulmonary embolism; Z88.8 Allergy status to other drugs, medicaments and biological substances; D63.8 Anemia in other chronic diseases classified elsewhere; D69.59 Other secondary thrombocytopenia; T45.1X5A Adverse effect of antineoplastic and immunosuppressive drugs, initial encounter; D68.4 Acquired coagulation factor deficiency; I25.2 Old myocardial infarction; J44.9 Chronic obstructive pulmonary disease, unspecified; I48.0 Paroxysmal atrial fibrillation
CPT/HCPCS: 36415; 71045; 76942; 80048; 80053; 80061; 82248; 82607; 82728; 82746; 82977; 83036; 83540; 83550; 83615; 83735; 83880; 84100; 84443; 84484; 84550; 85007; 85025; 85610; 85730; 86140; 88104; 93005; 93970; 94640; 94664; 96374; 99285; J7620; J8499

== ENCOUNTER 2019-06-28 04:20 | Inpatient (IN) | payer MEDICAID, MEDICARE ==
[~2019-06-28] VITALS: Ht 167.6 cm; Wt 59.3 kg
--- NOTE | 2019-06-28 04:27 | NUR ---
ED Nurse Note: Pt brought in by [address] from home c/o nose bleed x 1 hour. Pt wears o2 at home, takes blood thinners. VSS, ERMD at bedside
[2019-06-28 04:29] VITALS: BP 138/80
--- NOTE | 2019-06-28 04:39 | Emergency Room Report ---
History of Present Illness General Chief Complaint: Nosebleed Source: Patient (Singh Grissom MD) Present Illness HPI Disclaimer: Please note that this report is being documented using DRAGON technology. This can lead to erroneous entry secondary to incorrect interpretation by the dictating instrument. HPI: 69-year-old male presents for evaluation of nosebleed and shortness of breath. He has a history of COPD, CHF on 2 L at home, stroke, PA status post stenting, small cell lung cancer currently undergoing chemotherapy with recurrent pleural effusions, anticoagulated for multiple DVTs on warfarin. First, the patient states he has been short of breath for some time. He was recently seen at [facility] 2 weeks ago told he had recurrence of his loculated pleural effusions. He gets thoracentesis every few months. Were notes worsening shortness of breath and tightness on the right side consistent with prior episodes. He denies chest pain. He uses oxygen at home for his COPD. Today, he states his oxygen gave him a nosebleed from the right nares. Appears to be anterior as it was mostly dripping forward and a little bit was dripping back into his throat but not as much. Controlled with pressure. No longer bleeding. Has been compliant with warfarin. PMH: Small cell lung cancer, CAD, COPD, CHF, DVTs PSH: Multiple stents, thoracenteses, Allergies: BRITTANI inhibitor Social Hx: Current smoker (Singh Grissom MD) Allergies: Coded Allergies: BRITTANI INHIBITORS (Unverified Allergy, Unknown, 03/19/15) Nursing Documentation-PMH Past Medical History: No History, Except For Hx Cardiac Problems: Yes Hx Hypertension: Yes Hx Pacemaker: No Hx COPD: Yes Hx Diabetes: Yes Hx Cancer: Yes Hx Gastrointestinal Problems: No Hx Dialysis: No Hx Neurological Problems: Yes Hx Cerebrovascular Accident: Yes Hx Seizures: No (Singh Grissom MD) Review of Systems All Other Systems: negative except mentioned in HPI (Singh Grissom MD) Physical Exam Vital Signs Date Time Temp Pulse Resp B/P (MAP) Pulse Ox O2 Delivery O2 Flow Rate FiO2 06/28/19 04:19 97.3 120 18 138/80 (99) 98 Room Air General: Awake and alert, no acute distress HEENT: NC/AT. EOMI. right nares has a large blood clot but no active bleeding. No obvious culprit lesion. Cardiovascular: Tachycardic. S1 and S2 normal. No murmur appreciated Resp: Normal work of breathing. Decreased breath sounds over the right side. Intermittent cough. No wheezing. Skin: Intact. No abrasions, laceration or rash over the exposed skin MSK: Normal tone and bulk. Moving all extremities. No obvious deformity. Neuro: Awake and alert. Mentating appropriately. (Singh Grissom MD) Medical Decision Making Diagnostic Impression: Primary Impression: Anemia Additional Impressions: Lung cancer Dyspnea Pleural effusion Epistaxis Supratherapeutic international normalized ratio (INR) ER Course Is a 69-year-old male history of cancer, multiple DVTs anticoagulated on Coumadin presenting for evaluation of epistaxis now controlled and worsening shortness of breath. Decreased breath sounds on the right consistent with recurrence of his loculated pleural effusions as he was told 2 weeks ago at [facility]. He was here 2 months ago underwent thoracentesis. Has been compliant with his Coumadin. Epistaxis now controlled. Will apply Afrin nasal spray but does not require packing at this time. Will also check labs and EKG, chest x-ray to evaluate for recurrent pleural effusion. He denies chest pain at this time. Laboratory Tests Test 06/28/19 04:45 White Blood Count 21.7 K/UL (4.8-10.8) H Red Blood Count 2.95 M/UL (4.70-6.10) L Hemoglobin 9.3 G/DL (14.2-18.0) L Hematocrit 28.7 % (42.0-52.0) L Mean Corpuscular Volume 97 FL (80-99) Mean Corpuscular Hemoglobin 31.5 PG (27.0-31.0) H Mean Corpuscular Hemoglobin Concent 32.4 G/DL (32.0-36.0) Red Cell Distribution Width 20.9 % (11.6-14.8) H Platelet Count 114 K/UL (150-450) L Mean Platelet Volume 7.9 FL (6.5-10.1) Neutrophils (%) (Auto) % (45.0-75.0) Lymphocytes (%) (Auto) % (20.0-45.0) Monocytes (%) (Auto) % (1.0-10.0) Eosinophils (%) (Auto) % (0.0-3.0) Basophils (%) (Auto) % (0.0-2.0) Differential Total Cells Counted 100 Neutrophils % (Manual) 88 % (45-75) H Lymphocytes % (Manual) 9 % (20-45) L Monocytes % (Manual) 3 % (1-10) Eosinophils % (Manual) 0 % (0-3) Basophils % (Manual) 0 % (0-2) Band Neutrophils 0 % (0-8) Platelet Estimate Decreased L Platelet Morphology Normal Prothrombin Time 61.9 SEC (9.30-11.50) H Prothrombin Time INR 6.4 (0.9-1.1) *H Activated Partial Thromboplast Time 65 SEC (23-33) H Sodium Level 140 MMOL/L (136-145) Potassium Level 4.4 MMOL/L (3.5-5.1) Chloride Level 105 MMOL/L (98-107) Carbon Dioxide Level 27 MMOL/L (21-32) Anion Gap 8 mmol/L (5-15) Blood Urea Nitrogen 25 mg/dL (7-18) H Creatinine 1.6 MG/DL (0.55-1.30) H Estimate Glomerular Filtration Rate 52.2 mL/min (>60) Glucose Level 128 MG/DL (74-106) H Calcium Level 9.3 MG/DL (8.5-10.1) Total Bilirubin 0.8 MG/DL (0.2-1.0) Aspartate Amino Transferase (AST) 42 U/L (15-37) H Alanine Aminotransferase (ALT) 26 U/L (12-78) Alkaline Phosphatase 143 U/L (46-116) H Troponin I 0.000 ng/mL (0.000-0.056) Pro-B-Type Natriuretic Peptide 2056 pg/mL (0-125) H Total Protein 8.3 G/DL (6.4-8.2) H Albumin 3.0 G/DL (3.4-5.0) L Globulin 5.3 g/dL Albumin/Globulin Ratio 0.6 (1.0-2.7) L (Singh Grissom MD) ER Course Registration requesting admission to patient primary physician Dr. Angel Patient's heme oncologist was contacted, notified regarding the patient's INR and the right-sided effusion Patient has had persistent right-sided effusion and this images similar to previous He recommends holding the Coumadin at this time and patient will have further inpatient evaluation (Emily Carrillo DO) EKG Diagnostic Results EKG Time: 04:40 Rate: tachycardiac ST Segments: no acute changes Other Impression Sinus tachycardia, normal axis, normal intervals, no ST segment changes. Q waves in the precordial leads ASA given to the pt in ED: Yes (Singh Grissom MD) Rhythm Strip Diag. Results Rhythm Strip Time: 04:40 EP Interpretation: yes Rate: 110s Rhythm: no PVC's, no ectopy (Singh Grissom MD) Chest X-Ray Diagnostic Results Chest X-Ray Diagnostic Results : Chest X-Ray Ordered: Yes # of Views/Limited/Complete: 1 View Indication: Shortness of Breath EP Interpretation: Yes Interpretation: other - Large right-sided pleural effusion Impression: Other - Large right-sided pleural effusion Electronically Signed by: Electronically signed by Dr. Singh Grissom (Singh Grissom MD) Reevaluation Time: 05:42 Last Vital Signs Date Time Temp Pulse Resp B/P (MAP) Pulse Ox O2 Delivery O2 Flow Rate FiO2 06/28/19 04:29 97.3 18 138/80 98 Room Air 06/28/19 04:19 120 Reevaluation Impression Chest x-ray concerning for a large right-sided pleural effusion. The patient is oxygenating well at present though he is tachycardic and feels subjectively short of breath. Labs show baseline anemia though significant elevation in white count not seen on prior admissions. Will treat with antibiotics. Patient will require admission and likely thoracentesis. Will hold off on giving vitamin K until I discussed with his oncologist (Singh Grissom MD) Disposition: ADMITTED INPATIENT Condition: Serious Singh Grissom MD Jun 28, 2019 04:39 Emily Carrillo DO Jun 28, 2019 08:04
[2019-06-28] MEDS ORDERED: Neo-Synephrine 0.5% Nasal Soln NASAL ONE (04:45)
[2019-06-28] MEDS ORDERED: Phenylephrine 0.25% Nasal Spray NASAL ONE ×2 (04:54→05:45)
--- NOTE | 2019-06-28 05:03 | NUR ---
ER Nurse Note: Pt a&ox4, HR 115 otherwise VSS. RT eye swollen; pt denies difficulty seeing, no blurry vision. ERMD ordered jose alfredo-synephrine 0.5% nasal spray. Informed MD that the pxysis has Jose Alfredo-synephrine 0.25%; MD aware and stated it was acceptable to use. Pt on 1L NC for comfort O2; O2 sat >95%. Blood sent; SLIV LT hand established by second RN. Chest x-ray taken. All orders completed per ERMD orders. All safety measures met; will continue to montior.
[2019-06-28 05:04] LABS: HEMATOCRIT 28.7 % (42.0-52.0); HEMOGLOBIN 9.3 G/DL (14.2-18.0); MEAN CORPUSCULAR VOLUME 97 FL (80-99); PLATELET COUNT 114 K/UL (150-450); RED BLOOD COUNT 2.95 M/UL (4.70-6.10); RED CELL DISTRIBUTION WIDTH 20.9 % (11.6-14.8); WHITE BLOOD COUNT 21.7 K/UL (4.8-10.8)
[2019-06-28 05:27] LABS: ANION GAP 8 mmol/L (5-15); BLOOD UREA NITROGEN 25 mg/dL (7-18); CALCIUM 9.3 MG/DL (8.5-10.1); CARBON DIOXIDE 27 MMOL/L (21-32); CHLORIDE 105 MMOL/L (98-107); CREATININE 1.6 MG/DL (0.55-1.30); POTASSIUM 4.4 MMOL/L (3.5-5.1); SODIUM 140 MMOL/L (136-145)
[2019-06-28 05:38] LABS: ALANINE AMINOTRANSFERASE 26 U/L (12-78); ALBUMIN/GLOBULIN RATIO 0.6 (1.0-2.7); ALKALINE PHOSPHATASE 143 U/L (46-116); ASPARTATE AMINO TRANSFERASE 42 U/L (15-37); BILIRUBIN,TOTAL 0.8 MG/DL (0.2-1.0)
[2019-06-28 05:43] LABS: INR 6.4 (0.9-1.1)
[2019-06-28] MEDS ORDERED: cefTRIAXone 1 GM in NS 55 ML IVPB ONE (06:30)
[2019-06-28] MEDS ORDERED: Azithromycin 250 MG in NS 275 ML IV ONE (06:30)
[2019-06-28] MEDS ORDERED: Morphine Sulfate 4mg/ml Inj (IV USE ONLY) IVP ONE (06:30)
--- NOTE | 2019-06-28 07:12 | NUR ---
ER Nurse Note: Report given to YOCASTA Mary for continuity of care. No signs of distress, pain is controlled by med administered. Antibiotic infusing. All safety measures met.
[2019-06-28 07:14] VITALS: BP 128/82
--- NOTE | 2019-06-28 08:15 | NUR ---
ED Nurse Note: Patient resting in bed, no s/s of acute distress noted.
[2019-06-28 09:50] VITALS: BP 131/81
--- NOTE | 2019-06-28 10:49 | NUR ---
ED Nurse Note: Report given to Gil RUST
[2019-06-28 11:30] VITALS: BP 119/73
[2019-06-28] MEDS ORDERED: Heparin 5000 units/ml inj SUBQ SCH ×3 (13:30→21:00)
--- NOTE | 2019-06-28 13:36 | Diagnostic Imaging Report ---
Indication: Shortness of breath Technique: One view of the chest Comparison: 05/03/2019 Findings: Again demonstrated is a massive right pleural effusion, appearing slightly increased from the previous study. Dense opacity is seen in the right perihilar region, similar to but more striking than on the prior study. The left lung and pleural space are clear Impression: Mass of right pleural effusion, slightly increased from prior study of 2 months earlier. Unusual right perihilar opacity. Consider CT for further evaluation if clinically indicated
[2019-06-28] MEDS ORDERED: Azithromycin 250mg tab ORAL SCH (13:39)
[2019-06-28] MEDS ORDERED: PANTOPRAZOLE SO40 MG ORAL (14:05)
[2019-06-28] MEDS ORDERED: NITRO0.4 SL (14:05)
[2019-06-28] MEDS ORDERED: CARVEDILOL25 MG ORAL (14:05)
[2019-06-28] MEDS ORDERED: DIPHENHYDRAMINE25 M1 ORAL (14:05)
[2019-06-28] MEDS ORDERED: ATORVASTATIN CA40 MG ORAL (14:05)
[2019-06-28] MEDS ORDERED: CATAPRES0.2 MG ORAL (14:05)
[2019-06-28] MEDS ORDERED: FUROSEMIDE40 MG ORAL (14:05)
[2019-06-28] MEDS ORDERED: ASPIRIN-LOW81 MG ORAL (14:05)
[2019-06-28] MEDS ORDERED: POTASSIUM CHLO10 ME2 PO (14:05)
[2019-06-28] MEDS ORDERED: NORCO 10-325 T1 EACH ORAL (14:05)
[2019-06-28] MEDS ORDERED: FOLIC ACID1 MG ORAL (14:05)
[2019-06-28] MEDS ORDERED: WARFARIN SODIUM6 MG ORAL (14:05)
[2019-06-28] MEDS ORDERED: FLOMAX0.4 MG ORAL (14:05)
[2019-06-28] MEDS ORDERED: AMLODIPINE BESYL5 MG ORAL (14:05)
[2019-06-28] MEDS ORDERED: VITAMIN D-32000 UNI2 PO (14:05)
[2019-06-28] MEDS ORDERED: cloNIDine 0.2mg Tab ORAL PRN ×2 (14:15→14:30)
[2019-06-28] MEDS ORDERED: Nitroglycerin Subl 0.4mg tab SL PRN (14:15)
[2019-06-28] MEDS ORDERED: DiphenhydrAMINE 25mg Tab ORAL PRN (14:15)
[2019-06-28] MEDS: Solu-MEDROL 40mg Inj IVP SCH ×2 (14:33→21:15)
[2019-06-28] MEDS: HYDROcodone/Acetamin 10/325 tab ORAL PRN ×2 (14:34→21:10)
--- NOTE | 2019-06-28 14:50 | NUR ---
NURSE NOTES: Received pt from [id number], All admission assessments and instructions done and pt verbally confirmed to understand all. Pt is A&O x4. pt has NC 2LMP, all belongings are with pt, all home meds confirmed with pt, RN paged Dr LENNON x2 and then Dr MUSA called back and gave orders to JOAN MATTHEWS, RN called back Dr MUSA and he is notified about nose bleeding and plt, INR, WBC, HB and other lab result and V/S and HR 118, Dr MUSA ordered to D/C HEP and ordered WARFARIN per pharmacy and low dose sliding scale TID before meals, all orders noted and carried out. all needs attended, bed is locked and is in the lowest position, pt is on continues heart monitoring, call light within easy reach. will continue to monitor.
[2019-06-28 16:00] VITALS: BP 122/71
[2019-06-28] MEDS: Piperacillin/Tazobactam 3.375 GM in NS 110 ML IVPB SCH (16:26)
[2019-06-28] MEDS: NovoLOG Insulin Flexpen SUBQ SCH (16:30)
--- NOTE | 2019-06-28 18:06 | NUR ---
NURSE NOTES: Dr MUSA called and ordered to D/C COUMADIN and ordered HEP 5000U SQ Q12hr, is aware about PLT 114 and INR, noted and carried out. will continue to monitor.
--- NOTE | 2019-06-28 19:02 | NUR ---
NURSE NOTES: Dr MCGARRY called and ordered Vit k 10mg SQ once, noted and carried out. will continue to monitor.
[2019-06-28] MEDS ORDERED: Phytonadione 10 mg/mL 1ml amp SUBQ SCH (19:15)
--- NOTE | 2019-06-28 19:15 | NUR ---
NURSE NOTES: Received patient from YOCASTA Cordero. Patient is awake lying on the bed watching television. No signs of distress, pain. He is AO x 4. He is able to ambulate to the restroom independently. Checked IV site, patent and flushed with no apparent signs of erythema, bleeding, or infiltration. Bed in the lowest position with brakes on and side rails x2.Call light within reach. Will continue plan of care.
--- NOTE | 2019-06-28 19:49 | NUR ---
HAND-OFF: Report given to YOCASTA CHEW/ARACELI. Pt is awake and stable. no bleeding noted.
[2019-06-28 20:00] VITALS: BP 141/78
[2019-06-28] MEDS: Tamsulosin 0.4mg cap ORAL SCH (21:04)
[2019-06-28] MEDS: Atorvastatin 20mg tab ORAL SCH (21:05)
[2019-06-28] MEDS: Carvedilol 25mg Tab ORAL SCH (21:06)
[2019-06-29] VITALS: BP 115/73
[2019-06-29] MEDS: Piperacillin/Tazobactam 3.375 GM in NS 110 ML IVPB SCH ×3 (00:36→15:05)
[2019-06-29 04:00] VITALS: BP 102/62
--- NOTE | 2019-06-29 04:30 | Consultation ---
DATE OF CONSULTATION: 06/28/2019 PULMONARY CONSULTATION CONSULTING PHYSICIAN: Albino Otero M.D. REFERRING PHYSICIAN: Harsh Maher M.D. REASON FOR CONSULTATION: Respiratory insufficiency. HISTORY OF PRESENT ILLNESS: This is a 69-year-old male, well known to me, presents with increasing shortness of breath, COPD, CHF. The patient is on home oxygen. The patient also has history of small cell cancer, undergoing chemotherapy. The patient is seen and evaluated. The patient is apparently anticoagulated due to hypercoagulable state. The patient presents with increasing shortness of breath. The patient was seen at [facility] as well. The patient has had loculated pleural effusions and has had prior history of thoracentesis. The patient was noted with some shortness of breath overall. The patient denies any chest pain at this time. He is using oxygen. The patient is seen and evaluated in the emergency room and admitted and oncologist is to evaluate further. Imaging was noted and reviewed, notable for massive right pleural effusion overall. PAST MEDICAL HISTORY: Noted and reviewed. The patient does have history of CAD, COPD, CHF, DVT, hypercoagulable state, small cell cancer, right pleural effusion, prior history of stent. SOCIAL HISTORY: Prior smoker, but currently is smoking. He is nondrinker at present. No IV drug. ALLERGIES: Reviewed and reconciled. MEDICATIONS: Reviewed and reconciled. REVIEW OF SYSTEMS: All 10 points reviewed, otherwise as above. The patient does have a questionable history of neurological issues in the past. No other significant findings. Alert, oriented at present. PHYSICAL EXAMINATION: GENERAL: A well-developed male, comfortable at present. VITAL SIGNS: Reviewed. Blood pressure 122/71, temperature 99, heart rate 107, sats 93% on 2 liters. The patient's respiratory rate is 20. HEENT: Negative. NECK: Supple. The patient has no jugular venous distention. LUNGS: With significantly reduced breath sounds of the right lung, otherwise fairly clear. CARDIAC: Slightly tachycardic. ABDOMEN: Overall soft, nontender. EXTREMITIES: No cyanosis or clubbing. Mild edema. NEUROLOGIC: Nonfocal. LABORATORY DATA: Otherwise reviewed. White cell count 21, hemoglobin 9.3, hematocrit 28, platelets 114,000. Coagulation with INR 6.4. IMPRESSION: 1. Massive pleural effusion. Unclear if the patient has hemothorax. 2. Hypercoagulable state, now coagulopathy. 3. Small-cell cancer. 4. COPD. 5. CHF. RECOMMENDATION: Hold heparin. Hold Coumadin. Would recommend given patient's FFP to expedite ability to proceed with thoracentesis. Empiric antibiotics. Empiric steroids. Respiratory care and oxygen. Pain control. Follow up clinically for further changes. Prognosis guarded and follow further changes and interventions. Albino Otero M.D. DR: SAMMY JOB#: [id number] CC:
--- NOTE | 2019-06-29 05:08 | NUR ---
NURSE NOTES: Called Dr. Maher regarding patient's request for cough medication. Awaiting callback.
[2019-06-29] MEDS: HYDROcodone/Acetamin 10/325 tab ORAL PRN (05:21)
[2019-06-29] MEDS: Solu-MEDROL 40mg Inj IVP SCH ×3 (06:43→21:16)
[2019-06-29] MEDS: NovoLOG Insulin Flexpen SUBQ SCH ×3 (06:54→17:32)
--- NOTE | 2019-06-29 07:21 | NUR ---
HAND-OFF: Report given to YOCASTA Cordero. Patient is awake lying semi-perez's; resting comfortably. In stable condition.
--- NOTE | 2019-06-29 07:32 | NUR ---
NURSE NOTES: Received pt from NAINA/ARACELI RN, Pt is awake and alert, pt has NC 2LMP Pt has intact iv access RFA 20G SL. Pt is complaining Billings isn't effective, Dr MUSA, waiting to call back. pt is eating breakfast by observation. Pt is on continues heart monitoring. all needs attended, bed is locked and is in the lowest position, call light within easy reach. will continue to monitor.
--- NOTE | 2019-06-29 07:58 | NUR ---
NURSE NOTES: Dr HERNANDEZ visited pt and he ordered cough syrup and Dilaudid, noted and carried out. will continue to monitor.
[2019-06-29 08:00] VITALS: BP 116/65
[2019-06-29 08:11] LABS: INR 3.6 (0.9-1.1)
[2019-06-29] MEDS: Guaifenesin/DM 10ml syrup ORAL PRN ×3 (08:28→21:32)
[2019-06-29 08:35] LABS: ANION GAP 11 mmol/L (5-15); BLOOD UREA NITROGEN 31 mg/dL (7-18); CALCIUM 8.9 MG/DL (8.5-10.1); CARBON DIOXIDE 27 MMOL/L (21-32); CHLORIDE 103 MMOL/L (98-107); CREATININE 1.9 MG/DL (0.55-1.30); POTASSIUM 4.2 MMOL/L (3.5-5.1); SODIUM 141 MMOL/L (136-145)
[2019-06-29] MEDS: Aspirin EC 81mg tab ORAL SCH (08:35)
[2019-06-29] MEDS: Vitamin D 1000 IU Tab ORAL SCH (08:35)
[2019-06-29] MEDS: Azithromycin 250mg tab ORAL SCH (08:35)
[2019-06-29] MEDS: Carvedilol 25mg Tab ORAL SCH ×2 (08:36→21:00)
[2019-06-29] MEDS ORDERED: Furosemide 40mg tab ORAL SCH (09:00)
--- NOTE | 2019-06-29 09:50 | Consultation ---
History of Present Illness General Chief Complaint: Nosebleed Present Illness Allergies: Coded Allergies: BRITTANI INHIBITORS (Unverified Allergy, Unknown, 03/19/15) Medication History Scheduled Allopurinol* (Allopurinol*), 100 MG ORAL BID, (Reported) Amlodipine Besylate* (Amlodipine Besylate*), 5 MG ORAL DAILY, (Reported) Aspirin (Aspirin EC), 81 MG ORAL DAILY, (Reported) Aspirin Ec* (Aspirin Ec*), 81 MG ORAL DAILY, (Reported) Atorvastatin Calcium* (Atorvastatin Calcium*), 80 MG ORAL BEDTIME, (Reported) Atorvastatin Calcium* (Atorvastatin Calcium*), 40 MG ORAL BEDTIME, (Reported) Carvedilol* (Carvedilol*), 12.5 MG ORAL BID, (Reported) Carvedilol* (Carvedilol*), 25 MG ORAL EVERY 12 HOURS, (Reported) Cholecalciferol (Vitamin D3) (Vitamin D-3), 1,000 UNIT PO DAILY, (Reported) Cholecalciferol (Vitamin D3)* (Vitamin D*), 1,000 UNIT ORAL DAILY, (Reported) Clonidine Hcl* (Catapres*), 0.2 MG ORAL TID, (Reported) Fluticasone/Salmeterol (Advair 250-50 Diskus), 1 PUFF INH EVERY 12 HOURS, ( Reported) Fluticasone/Salmeterol (Advair 250-50 Diskus), 1 PUFF INH EVERY 12 HOURS, ( Reported) Folic Acid* (Folic Acid*), 1 MG ORAL DAILY, (Reported) Furosemide* (Lasix*), 40 MG ORAL DAILY, (Reported) Glipizide* (Glipizide*), 5 MG ORAL BID, (Reported) Hydralazine Hcl* (Hydralazine Hcl*), 100 MG ORAL TID, (Reported) Hydrochlorothiazide* (Hydrochlorothiazide*), 25 MG ORAL DAILY, (Reported) Hydrocodone Bit/Acetaminophen 10-325* (Hydrocodon-Acetaminophn 10-325*), 1 TAB ORAL Q4H, (Reported) Pantoprazole* (Pantoprazole*), 40 MG ORAL DAILY, (Reported) Pantoprazole* (Pantoprazole*), 40 MG ORAL DAILY, (Reported) Tamsulosin HCl (Flomax), 0.4 MG ORAL DAILY, (Reported) Tamsulosin Hcl (Tamsulosin Hcl*), 0.4 MG ORAL BEDTIME, (Reported) Ticagrelor* (Brilinta*), 90 MG PO BID, (Reported) Warfarin Sod* (Warfarin Sod*), 10 MG ORAL DAILY, (Reported) Warfarin Sod* (Warfarin Sod*), 6 MG ORAL DAILY, (Reported) Scheduled PRN Clonidine Hcl* (Catapres*), 0.2 MG ORAL DAILY PRN for For High Blood Pressure, ( Reported) Diphenhydramine Hcl* (Diphenhydramine Hcl*), 25 MG ORAL HS PRN for Itching, ( Reported) Diphenhydramine Hcl* (Diphenhydramine Hcl*), 25 MG ORAL DAILY PRN for Itching, ( Reported) Hydrocodone Bit/Acetaminophen 10-325* ([place] 10-325*), 1 TAB ORAL Q4H PRN for For Pain, (Reported) Nitroglycerin (Nitrostat), 0.4 MG SL ONCE PRN for PRN, (Reported) Nitroglycerin 0.4MG table* (Nitroglycerin*), 0.4 MG SL .Q5MIN X 3 DOSES PRN for CHEST PAIN, (Reported) Miscellaneous Medications Potassium Chloride (Potassium Chloride), 10 MEQ PO, (Reported) Patient History Healthcare decision maker Resuscitation status Full Code Advanced Directive on File Physical Exam Last 24 Hour Vital Signs Date Time Temp Pulse Resp B/P (MAP) Pulse Ox O2 Delivery O2 Flow Rate FiO2 06/29/19 08:36 95 116/65 06/29/19 08:36 95 116/65 06/29/19 08:32 97 06/29/19 08:00 97.3 95 20 116/65 (82) 92 06/29/19 04:00 97.5 89 20 102/62 (75) 98 06/29/19 04:00 84 06/29/19 00:00 98.1 87 20 115/73 (87) 94 06/29/19 00:00 89 06/28/19 21:06 106 141/78 06/28/19 21:00 Nasal Cannula 2.0 06/28/19 20:00 98.2 106 21 141/78 (99) 91 06/28/19 20:00 105 06/28/19 16:49 112 06/28/19 16:00 99.0 107 20 122/71 (88) 93 06/28/19 16:00 2.0 06/28/19 15:04 97.0 06/28/19 12:02 111 06/28/19 12:00 2.0 06/28/19 12:00 Nasal Cannula 2.0 06/28/19 11:30 97.0 118 19 119/73 (88) 99 06/28/19 10:55 97.2 99 19 131/81 100 Room Air 06/28/19 09:50 97.2 99 19 131/81 100 Room Air Intake and Output 06/28/19 06/29/19 19:00 07:00 Intake Total 55.0 ml 645.0 ml Output Total 1100 ml Balance 55.0 ml -455.0 ml Intake Oral 480 ml IV Total 55.0 ml 165.0 ml Output Urine Total 1100 ml # Bowel Movements 1 Laboratory Tests Test 06/29/19 07:16 Prothrombin Time 36.2 SEC (9.30-11.50) H Prothromb Time International Ratio 3.6 (0.9-1.1) H Sodium Level 141 MMOL/L (136-145) Potassium Level 4.2 MMOL/L (3.5-5.1) Chloride Level 103 MMOL/L (98-107) Carbon Dioxide Level 27 MMOL/L (21-32) Anion Gap 11 mmol/L (5-15) Blood Urea Nitrogen 31 mg/dL (7-18) H Creatinine 1.9 MG/DL (0.55-1.30) H Estimat Glomerular Filtration Rate 42.8 mL/min (>60) Glucose Level 169 MG/DL (74-106) H Calcium Level 8.9 MG/DL (8.5-10.1) Height (Feet): 5 Height (Inches): 6.00 Weight (Pounds): 130 Medications Current Medications Medications (Trade) Dose Ordered Sig/Allen Route PRN Reason Start Time Stop Time Status Last Admin Dose Admin Acetaminophen (Tylenol) 650 mg Q4H PRN ORAL Mild Pain/Temp > 100.5 06/28/19 13:30 07/28/19 13:29 Acetaminophen/ Hydrocodone Bitart ([place] 10/325) 1 tab Q4H PRN ORAL For Pain 06/28/19 14:15 07/05/19 14:14 2/12/20 05:21 Amlodipine Besylate (Norvasc) 5 mg DAILY ORAL 06/29/19 09:00 07/29/19 08:59 06/29/19 08:36 Aspirin (Ecotrin) 81 mg DAILY ORAL 06/29/19 09:00 07/29/19 08:59 06/29/19 08:35 Atorvastatin Calcium (Lipitor) 40 mg BEDTIME ORAL 06/28/19 21:00 07/28/19 20:59 06/28/19 21:05 Azithromycin (Zithromax) 250 mg DAILY ORAL 06/29/19 09:00 07/06/19 08:59 06/29/19 08:35 Carvedilol (Coreg) 25 mg EVERY 12 HOURS ORAL 06/28/19 21:00 07/28/19 20:59 06/29/19 08:36 Clonidine HCl (Catapres tab) 0.2 mg DAILYPRN PRN ORAL IF SBP>160 06/28/19 14:30 07/28/19 14:29 Dextrose (Dextrose 50%) 25 ml Q30M PRN IV Hypoglycemia 06/28/19 14:30 07/28/19 14:29 Dextrose (Dextrose 50%) 50 ml Q30M PRN IV Hypoglycemia 06/28/19 14:30 07/28/19 14:29 Diphenhydramine HCl (Benadryl) 25 mg DAILYPRN PRN ORAL Itching 06/28/19 14:15 07/28/19 14:14 Folic Acid (Folate) 1 mg DAILY ORAL 06/29/19 09:00 07/29/19 08:59 06/29/19 08:36 Furosemide (Lasix) 40 mg EVERY 8 HOURS IV 06/28/19 22:00 07/28/19 21:59 06/29/19 06:43 Guaifenesin/ Dextromethorphan (Robitussin DM Syrup) 15 ml Q6H PRN ORAL For Cough 06/29/19 08:00 07/29/19 07:59 06/29/19 08:28 Hydromorphone HCl (Dilaudid) 1.5 mg Q6H PRN IVP MODERATE TO SEVERE PAIN 06/29/19 08:00 07/06/19 07:59 06/29/19 08:29 Insulin Aspart (NovoLOG) BEFORE MEALS SUBQ 06/28/19 16:30 07/28/19 16:29 06/29/19 06:54 Methylprednisolone Sodium Succinate (Solu-MEDROL) 40 mg EVERY 8 HOURS IVP 06/28/19 14:00 07/28/19 13:59 06/29/19 06:43 Nitroglycerin (Ntg) 0.4 mg Q5MIN X 3 DOSES PRN SL CHEST PAIN 06/28/19 14:15 07/28/19 14:14 Pantoprazole (Protonix) 40 mg DAILY ORAL 06/29/19 09:00 07/29/19 08:59 06/29/19 08:35 Piperacillin Sod/ Tazobactam Sod 3.375 gm/Sodium Chloride 110 ml @ 27.5 mls/hr Q8H IVPB 06/28/19 16:00 07/05/19 15:59 06/29/19 08:25 Potassium Chloride (K-Dur) 10 meq DAILY ORAL 06/29/19 09:00 07/29/19 08:59 06/29/19 08:36 Tamsulosin HCl (Flomax) 0.4 mg BEDTIME ORAL 06/28/19 21:00 07/28/19 20:59 06/28/19 21:04 Vitamin D (Vitamin D) 1,000 intlu DAILY ORAL 06/29/19 09:00 07/29/19 08:59 06/29/19 08:35 Assessment/Plan Assessment/Plan: HEMATOLOGY/ONCOLOGY CONSULTATION REQUESTING PHYSICIAN: Harsh Maher REASON FOR CONSULTATION: Evaluation of lung cancer. DOS: 06/28/2019 IDENTIFYING DATA: Dear Dr. Butler, The patient is a pleasant 69-year-old, male well known to me, with past medical history, which is significant for metastatic colon cancer, has been stable, on Avastin, carboplatin, Alimta; as well as COPD; type 2 diabetes mellitus; hypertensive heart disease; severe peripheral vascular disease, history of DVT, history of pulmonary emboli, CAD stage III, CHF, EF of 40%, paroxysmal atrial fibrillation, status post ablation, BPH history, has been in the past seen by Shanna Leone, has been to [facility] before. The patient at this time presents with increasing shortness of breath, noted to have worsening pleural effusion. Hematology Service consulted for further evaluation and treatment. PAST MEDICAL HISTORY: COPD, lung cancer, ischemic cardiac disease, type 2 diabetes, hypertensive heart disease, cerebrovascular disease, DVT, PE and CKD stage 3. HOME MEDICATIONS: Allopurinol, baby aspirin, Lipitor, D3, glipizide, hydralazine, Protonix, Advair, Brilinta, tamsulosin, and codeine. ALLERGIES: BRITTANI inhibitor. FAMILY HISTORY: Unremarkable. SOCIAL HISTORY: Lives at home. Prior history of heavy smoking use. No illicit drug use. No alcohol. ROS Constitutional: No fever, no chills, no night sweats, no fatigue Skin: No rashes, lumps, itchiness, dryness HEENT: No GRAY, ear ache, visual changes, double vision, nosebleeds Breasts: No lumps, pain, discharge Pulmonary: ++ shortness of breath noted Cardiovascular: No chest pain, tightness, palpitations, syncope, PND GI: No nausea, vomiting, diarrhea, melena, hematochezia, change in appetite : No dysuria, frequency, urgency, urinary incontinence, foamy urine Musculoskeletal: No joint swelling or muscle pain, trauma, back pain Neurologic: No dizziness, fainting, seizures, changes in smell or taste Psychiatric: No nervousness, stress, or depression, anxiety, hallucinations PHYSICAL EXAMINATION: VITAL SIGNS: Reviewed. GENERAL: No acute distress. NECK: supple LUNGS: Decreased breath sounds. CARDIOVASCULAR: Regular rate. No S3 or S4. ABDOMEN: Soft, nontender, and nondistended. EXTREMITIES: 1+ edema. LABORATORY AND DIAGNOSTIC DATA: Labs reviewed. IMAGING: Noted ASSESSMENT AND RECOMMENDATION: 1. Metastatic lung cancer. Getting triple combination chemotherapy, intermittent development of wilver right-sided pleural effusion. The patient has required thoracentesis in the past. Continue to closely monitor the patient's fluid status. --> continue office f/u for chemo --> using picc line for access --> maintain access as is 2. Pulmonary embolism on CT, on anticoagulation on Coumadin. --> inr goal 2-3 --> on coumadin with inr goal 3, on admission was >6 --> FFP and vitk for nose bleed 3. Anemia due to underlying chronic disease. --> ferritin is replete, hold off on iron --> hgb goal >7 4. Thrombocytopenia, likely due to recently administered chemotherapy. --> closely monitor for improvement --> trend as needed 5. Coagulopathy, likely due to underlying liver disease. --> for nose bleed ffp ordered --> also may need procedure 6. Pleural effusion --> likely to get thora --> needs CT surg recs immediately, have dw pcp and CT surgeon Sreekanth --> Dr Bradley aware I appreciate consultation and Anurag Bryan RN, MD Jun 29, 2019 09:50
--- NOTE | 2019-06-29 10:26 | Cardiac Electrophysiology PN ---
Subjective Subjective [id number] Objective Last 24 Hour Vital Signs Date Time Temp Pulse Resp B/P (MAP) Pulse Ox O2 Delivery O2 Flow Rate FiO2 06/29/19 08:36 95 116/65 06/29/19 08:36 95 116/65 06/29/19 08:32 97 06/29/19 08:00 97.3 95 20 116/65 (82) 92 06/29/19 04:00 97.5 89 20 102/62 (75) 98 06/29/19 04:00 84 06/29/19 00:00 98.1 87 20 115/73 (87) 94 06/29/19 00:00 89 06/28/19 21:06 106 141/78 06/28/19 21:00 Nasal Cannula 2.0 06/28/19 20:00 98.2 106 21 141/78 (99) 91 06/28/19 20:00 105 06/28/19 16:49 112 06/28/19 16:00 99.0 107 20 122/71 (88) 93 06/28/19 16:00 2.0 06/28/19 15:04 97.0 06/28/19 12:02 111 06/28/19 12:00 2.0 06/28/19 12:00 Nasal Cannula 2.0 06/28/19 11:30 97.0 118 19 119/73 (88) 99 06/28/19 10:55 97.2 99 19 131/81 100 Room Air Intake and Output 06/28/19 06/29/19 19:00 07:00 Intake Total 55.0 ml 645.0 ml Output Total 1100 ml Balance 55.0 ml -455.0 ml Intake Oral 480 ml IV Total 55.0 ml 165.0 ml Output Urine Total 1100 ml # Bowel Movements 1 Laboratory Tests Test 06/29/19 07:16 Prothrombin Time 36.2 SEC (9.30-11.50) H Prothromb Time International Ratio 3.6 (0.9-1.1) H Sodium Level 141 MMOL/L (136-145) Potassium Level 4.2 MMOL/L (3.5-5.1) Chloride Level 103 MMOL/L (98-107) Carbon Dioxide Level 27 MMOL/L (21-32) Anion Gap 11 mmol/L (5-15) Blood Urea Nitrogen 31 mg/dL (7-18) H Creatinine 1.9 MG/DL (0.55-1.30) H Estimat Glomerular Filtration Rate 42.8 mL/min (>60) Glucose Level 169 MG/DL (74-106) H Calcium Level 8.9 MG/DL (8.5-10.1) Carcinoembryonic Antigen Pending Quinton Bradley MD Jun 29, 2019 10:26
--- NOTE | 2019-06-29 10:30 | NUR ---
*-* NO INSURANCE INFORMATION IN THE BAR UNABLE TO SEND CLINICALS OR REVIEWS *-*
[2019-06-29 11:08] LABS: INR 2.9 (0.9-1.1)
--- NOTE | 2019-06-29 11:30 | History and Physical Report ---
DATE OF ADMISSION: 06/28/2019 CHIEF COMPLAINT AND REASON FOR HOSPITALIZATION: The patient was admitted with shortness of breath. HISTORY OF PRESENT ILLNESS: The patient is a 69-year-old male with a history of COPD, combined systolic and diastolic CHF and a small cell lung cancer and takes another agent as an outpatient. He has been a patient of Dr. Angel and has had multiple hospitalizations, who presents now with increasing shortness of breath and cough and some catching of his breath. There is a history of hypertension and diabetes. ALLERGIES: BRITTANI inhibitors cause swelling. HOME MEDICATIONS: Include allopurinol 100 mg b.i.d., amlodipine 5 mg daily, aspirin 81 mg daily, atorvastatin 80 mg daily, carvedilol 12.5 mg b.i.d., vitamin D3 1000 units daily, clonidine 0.2 t.i.d., diphenhydramine 25 mg at bedtime p.r.n., Advair Diskus 1 puff every 12 hours, folic acid 1 mg daily, furosemide 40 mg daily, glipizide 5 mg b.i.d., hydralazine 100 mg t.i.d., hydrochlorothiazide 25 mg daily, [place] 10 p.r.n., nitroglycerin p.r.n., Protonix 40 mg daily, potassium 10 mEq daily, tamsulosin 0.4 mg at bedtime, Brilinta 90 mg b.i.d., and warfarin, dose adjusted per INR. HABITS: He is a current nonsmoker. He was a prior smoker. SOCIAL HISTORY: He lives at home with family. SYSTEM REVIEW: HEAD, EYES, EARS, NOSE, AND THROAT: Vision and hearing are good. ENDOCRINE: History of diabetes type 2. No thyroid disease. PULMONARY: Recurrent shortness of breath. CARDIAC: History of CHF and history of ablation for supraventricular tachycardia. The patient has a prior history of superior vena cava occlusion. GASTROINTESTINAL: He has a history of gastroesophageal reflux disease. hematochezia or melena. GENITOURINARY: No dysuria, hematuria, or kidney stones. Mild elevation of creatinine on diuretics. NEUROLOGIC: No CVA or seizures. PHYSICAL EXAMINATION: GENERAL: The patient is lying in bed and moderately short of breath. VITAL SIGNS: Temperature 97, pulse is 118, respirations 19, blood pressure 119/73, and pulse oximetry 99. HEAD, EYES, EARS, NOSE, AND THROAT: Oral mucosa is moist. Sclerae are nonicteric. NECK: No adenopathy. LUNGS: Bilateral rhonchi. He has a harsh cough. HEART: Rhythm is regular. Normal S1 and S2. I do not hear any murmurs. ABDOMEN: Soft without organomegaly or masses. EXTREMITIES: No edema, cyanosis, or clubbing. NEUROLOGIC: He is alert and oriented. No focal findings. IMPRESSION: 1. right pleural effusion . 2. Small cell cancer of the lung. 3. Paroxysmal atrial fibrillation and supraventricular tachycardia, status post ablation. 4. Combined systolic and diastolic congestive heart failure. 5. Diabetes. 6. Anemia cancer. PLAN: The patient was . We will start him on steroids and nebulizer treatment and diuretics. I will watch him closely given his comorbidities. Eagle Rangel M.D. DR: GIULIANA JOB#: [id number] CC:
[2019-06-29 11:42] VITALS: BP 117/72
--- NOTE | 2019-06-29 12:39 | Diagnostic Imaging Report ---
Clinical Indication: Chest pain, shortness of breath, respiratory insufficiency Technique: Spiral acquisitions obtained through the chest. No IV contrast utilized, for referring physician request. Multiplanar reconstructions generated. Total dose length product 715 mGycm. CTDIvol(s) 15 mGy. Dose reduction achieved using automated exposure control Comparison: 10/13/2016 Findings: Well over 50% of the right pleural space is occupied by what appears to be a mixture of fluid and tumor. Masslike areas of high attenuation are seen both along the visceral and parietal pleural surface as well as within the center of the collection. There is compressive atelectasis of significant portions of the upper, middle, and lower lobes. There is considerable volume loss of the medial right upper lobe. This may be due to compressive atelectasis, but the presence of bronchiectasis suggest there may be a component of cicatrization. Linear scarring as well as some bronchiectasis is seen in the anteromedial left upper lobe. There is a peripheral subpleural opacity in the left upper lung, measuring 6 mm in diameter. There are some areas of hyperinflation and scattered throughout the left lung. There is a conglomerate of nodular opacities at the left lung base posteriorly. No mediastinal or hilar mass or adenopathy. There is nonspecific thickening of the mediastinal soft tissues in the upper mediastinum, similar to previous, less well-defined. There is also small amount of fluid surrounding the aortic root, not evident previously. The heart size is normal. There are extensive coronary artery calcifications. The esophagus is unremarkable. There is bilateral gynecomastia. Large venous collaterals are seen in the chest wall bilaterally, right greater than left. Is is also evident previously. The thyroid is unremarkable. No axillary or chest wall mass or adenopathy. The bones demonstrate degenerative spondylosis changes. The included upper abdominal anatomy demonstrates a cyst in segment 4A of the liver, also evident previously. There are bilateral renal cysts. Impression: Large pleural opacity occupying most of the right hemithorax, appears to be a combination of pleural fluid and tumor, presumably malignant given appearance and stated clinical history of small cell lung carcinoma Volume loss with bronchiectasis involving the anteromedial right upper lobe. This may represent compressive atelectasis, but presence of bronchiectasis suggests scarring with cicatrization Nodular opacities at the left lung base, may reflect patchy infiltrate versus tumor nodules Peripheral subpleural opacity in the left upper lung, nonspecific Thickening of the mediastinal soft tissues in the upper mediastinum, also demonstrated previously. Extensive chest wall venous collaterals, also previously reported, presumably due to venoocclusive disease Small amount of fluid surrounding the aortic root, nonspecific, probably representing pericardial fluid Bilateral gynecomastia Hepatic and renal cysts The CT scanner at [facility] is accredited by the [employer] and the scans are performed using protocols designed to limit radiation exposure to as low as reasonably achievable to attain images of sufficient resolution adequate for diagnostic evaluation.
--- NOTE | 2019-06-29 14:28 | NUR ---
NURSE NOTES: Dr HERNANDEZ is aware about nose bleeding morning and now, no new order to RN. Dr wilson F/U. Will continue to monitor.
--- NOTE | 2019-06-29 14:50 | NUR ---
CASE MANAGEMENT: INITIAL REVIEW 69YR OLD MALE BIBA FROM HOME CC: NOSE BLEED SI:ANEMIA . EPISTAXIS . DYSPNEA . MASS RIGHT PLEURAL EFFUSION . SUPRATHERAPEUTIC INR . LUNG CANCER 97.4 120 18 138/80 98% ON RA WBC 21.7 H/H 9.3/28.7 PLT 114 PT/INR 61.9/ 6.4 PTT 65 NA+ 140 BUN 25 CREAT 1.6 BG 128 BNP 2056 IS:JENNIFER-SYNEPHRINE NS X1 IV ROCEPHIN X1 IV ZITHROMAX X1 IV MORPHINE SULFATE X1 CHEST X-RAY \: 2E TELE UNIT CASE MANAGEMENT: REVIEW 06/29/19 SI: ANEMIA . EPISTAXIS . DYSPNEA . MASS RIGHT PLEURAL EFFUSION . SUPRATHERAPEUTIC INR . LUNG CANCER 98.0 92 22 117/72 97% ON RA BUN 31 CREAT 1.9 BG 169 PT/INR 36.2/3.6 CEA-PENDING IS:IV ZOSYN Q8HR ZITHROMAX PO QD IV LASIX Q8HR IV SOLU-MEDROL Q8HR NORVASC PO QD COREG PO BID PROTONIX PO QD FLOMAX PO QHS FOLATE PO QD ASPIRIN PO QD \: 2E TELE UNIT PLAN: CT CHEST - PLEURAL EFFUSION - LIKELY TO GET THORA
--- NOTE | 2019-06-29 15:03 | General Progress Note ---
Assessment/Plan Problem List: (1) atrial fib (2) atrial fib (3) atrial fib (4) Paroxysmal atrial fibrillation ICD Codes: I48.0 - Paroxysmal atrial fibrillation SNOMED: 953112630 (5) CHF (congestive heart failure) ICD Codes: I50.9 - Heart failure, unspecified SNOMED: 08985087 (6) Lung cancer ICD Codes: C34.90 - Malignant neoplasm of unspecified part of unspecified bronchus or lung SNOMED: 032186414 (7) Dyspnea ICD Codes: R06.00 - Dyspnea, unspecified SNOMED: 568011574 (8) Pleural effusion ICD Codes: J90 - Pleural effusion, not elsewhere classified SNOMED: 01105173 (9) Supratherapeutic international normalized ratio (INR) ICD Codes: R79.1 - Abnormal coagulation profile SNOMED: 489317155 (10) Epistaxis ICD Codes: R04.0 - Epistaxis SNOMED: 810113107 Assessment/Plan: hold coumadin, steroids, diuresis Subjective Constitutional: Reports: weakness HEENT: Reports: no symptoms Cardiovascular: Reports: no symptoms Respiratory: Reports: cough, shortness of breath Gastrointestinal/Abdominal: Reports: no symptoms Genitourinary: Reports: no symptoms Neurologic/Psychiatric: Reports: no symptoms Endocrine: Reports: no symptoms Hematologic/Lymphatic: Reports: anemia Allergies: Coded Allergies: BRITTANI INHIBITORS (Unverified Allergy, Unknown, 03/19/15) Objective Last 24 Hour Vital Signs Date Time Temp Pulse Resp B/P (MAP) Pulse Ox O2 Delivery O2 Flow Rate FiO2 06/29/19 11:47 85 06/29/19 11:42 98.0 92 22 117/72 (87) 97 06/29/19 09:00 Nasal Cannula 2.0 06/29/19 08:36 95 116/65 06/29/19 08:36 95 116/65 06/29/19 08:32 97 06/29/19 08:00 97.3 95 20 116/65 (82) 92 06/29/19 04:00 97.5 89 20 102/62 (75) 98 06/29/19 04:00 84 06/29/19 00:00 98.1 87 20 115/73 (87) 94 06/29/19 00:00 89 06/28/19 21:06 106 141/78 06/28/19 21:00 Nasal Cannula 2.0 06/28/19 20:00 98.2 106 21 141/78 (99) 91 06/28/19 20:00 105 06/28/19 16:49 112 06/28/19 16:00 99.0 107 20 122/71 (88) 93 06/28/19 16:00 2.0 06/28/19 15:04 97.0 Intake and Output 06/28/19 06/29/19 19:00 07:00 Intake Total 55.0 ml 645.0 ml Output Total 1100 ml Balance 55.0 ml -455.0 ml Intake Oral 480 ml IV Total 55.0 ml 165.0 ml Output Urine Total 1100 ml # Bowel Movements 1 Laboratory Tests 06/29/19 07:16: Prothrombin Time 36.2H, Prothromb Time International Ratio 3.6H, Sodium Level 141, Potassium Level 4.2, Chloride Level 103, Carbon Dioxide Level 27, Anion Gap 11, Blood Urea Nitrogen 31H, Creatinine 1.9H, Estimat Glomerular Filtration Rate 42.8, Glucose Level 169H, Calcium Level 8.9, Carcinoembryonic Antigen [ Pending] 06/29/19 10:45: Prothrombin Time 29.6H, Prothromb Time International Ratio 2.9H Height (Feet): 5 Height (Inches): 6.00 Weight (Pounds): 130 General Appearance: alert, mild distress EENT: other - epistaxis mild Neck: normal alignment Cardiovascular: normal rate, regular rhythm Respiratory/Chest: decreased breath sounds Abdomen: non tender, soft Edema: no edema noted Arm (L), no edema noted Arm (R), no edema noted Leg (L), no edema noted Leg (R), no edema noted Pedal (L), no edema noted Pedal (R), no edema noted 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
[2019-06-29 16:00] VITALS: BP 111/73
--- NOTE | 2019-06-29 18:32 | Pulmonology Progress Note ---
Assessment/Plan Assessment/Plan Pulmonary Progress Note HPI: Patient is a 69-year-old male, admitted with increasing shortness of breath, past history of Lung Cancer, COPD, CHF. The patient is anticoagulated due to hypercoagulable state. The patient presents with increasing shortness of breath. Patient has had prior history of thoracentesis. He denies any chest pain at this time. He is using oxygen. Imaging was noted and reviewed, notable for massive right pleural effusion overall. PAST MEDICAL HISTORY: CAD, COPD, CHF, DVT, hypercoagulable state, small cell cancer, right pleural effusion, SVC thrombosis prior history of stent. SOCIAL HISTORY: Prior smoker, but currently is smoking. He is nondrinker at present. No IV drug. ALLERGIES: Reviewed and reconciled. MEDICATIONS: Reviewed and reconciled. PHYSICAL EXAMINATION: GENERAL: A well-developed male, comfortable VITAL SIGNS NOTED HEENT: Negative. NECK: Supple. The patient has no jugular venous distention. LUNGS: With significantly reduced breath sounds of the right lung, otherwise fairly clear. Distended veins anterior right chest wall CARDIAC: Slightly tachycardic. ABDOMEN: Overall soft, nontender. EXTREMITIES: No cyanosis or clubbing. Mild edema. NEUROLOGIC: Nonfocal. LABORATORY NOTED: IMPRESSION: 1. Massive pleural effusion. Unclear if the patient has hemothorax. Previously noted chronic complex effusion. 2. Hypercoagulable state, now coagulopathy. 3. Small-cell cancer. 4. COPD. 5. CHF. PLAN: Hold heparin. Hold Coumadin. Await improvement in coags prior to thoracentesis. Empiric antibiotics. Empiric steroids. Respiratory care and oxygen. Pain control. Follow up clinically for further changes. Prognosis guarded and follow further changes and interventions. Subjective ROS Limited/Unobtainable: No Respiratory: Reports: shortness of breath Allergies: Coded Allergies: BRITTANI INHIBITORS (Unverified Allergy, Unknown, 03/19/15) Objective Last 24 Hour Vital Signs Date Time Temp Pulse Resp B/P (MAP) Pulse Ox O2 Delivery O2 Flow Rate FiO2 06/29/19 16:00 97.8 90 20 111/73 (86) 97 06/29/19 15:31 98.0 06/29/19 15:27 89 06/29/19 11:47 85 06/29/19 11:42 98.0 92 22 117/72 (87) 97 06/29/19 09:00 Nasal Cannula 2.0 06/29/19 08:36 95 116/65 06/29/19 08:36 95 116/65 06/29/19 08:32 97 06/29/19 08:00 97.3 95 20 116/65 (82) 92 06/29/19 04:00 97.5 89 20 102/62 (75) 98 06/29/19 04:00 84 06/29/19 00:00 98.1 87 20 115/73 (87) 94 06/29/19 00:00 89 06/28/19 21:06 106 141/78 06/28/19 21:00 Nasal Cannula 2.0 06/28/19 20:00 98.2 106 21 141/78 (99) 91 06/28/19 20:00 105 Intake and Output 06/28/19 06/29/19 19:00 07:00 Intake Total 55.0 ml 645.0 ml Output Total 1100 ml Balance 55.0 ml -455.0 ml Intake Oral 480 ml IV Total 55.0 ml 165.0 ml Output Urine Total 1100 ml # Bowel Movements 1 Laboratory Tests 06/29/19 07:16: Prothrombin Time 36.2H, Prothromb Time International Ratio 3.6H, Sodium Level 141, Potassium Level 4.2, Chloride Level 103, Carbon Dioxide Level 27, Anion Gap 11, Blood Urea Nitrogen 31H, Creatinine 1.9H, Estimat Glomerular Filtration Rate 42.8, Glucose Level 169H, Calcium Level 8.9, Carcinoembryonic Antigen [ Pending] 06/29/19 10:45: Prothrombin Time 29.6H, Prothromb Time International Ratio 2.9H Current Medications Medications (Trade) Dose Ordered Sig/Allen Route PRN Reason Start Time Stop Time Status Last Admin Dose Admin Acetaminophen (Tylenol) 650 mg Q4H PRN ORAL Mild Pain/Temp > 100.5 06/28/19 13:30 07/28/19 13:29 Acetaminophen/ Hydrocodone Bitart ([place] 10/325) 1 tab Q4H PRN ORAL For Pain 06/28/19 14:15 07/05/19 14:14 06/29/19 05:21 Amlodipine Besylate (Norvasc) 5 mg DAILY ORAL 06/29/19 09:00 07/29/19 08:59 06/29/19 08:36 Aspirin (Ecotrin) 81 mg DAILY ORAL 06/29/19 09:00 07/29/19 08:59 06/29/19 08:35 Atorvastatin Calcium (Lipitor) 40 mg BEDTIME ORAL 06/28/19 21:00 07/28/19 20:59 06/28/19 21:05 Azithromycin (Zithromax) 250 mg DAILY ORAL 06/29/19 09:00 07/06/19 08:59 06/29/19 08:35 Carvedilol (Coreg) 25 mg EVERY 12 HOURS ORAL 06/28/19 21:00 07/28/19 20:59 06/29/19 08:36 Clonidine HCl (Catapres tab) 0.2 mg DAILYPRN PRN ORAL IF SBP>160 06/28/19 14:30 07/28/19 14:29 Dextrose (Dextrose 50%) 25 ml Q30M PRN IV Hypoglycemia 06/28/19 14:30 07/28/19 14:29 Dextrose (Dextrose 50%) 50 ml Q30M PRN IV Hypoglycemia 06/28/19 14:30 07/28/19 14:29 Diphenhydramine HCl (Benadryl) 25 mg DAILYPRN PRN ORAL Itching 06/28/19 14:15 07/28/19 14:14 Folic Acid (Folate) 1 mg DAILY ORAL 06/29/19 09:00 07/29/19 08:59 06/29/19 08:36 Furosemide (Lasix) 40 mg EVERY 8 HOURS IV 06/28/19 22:00 07/28/19 21:59 06/29/19 13:06 Guaifenesin/ Dextromethorphan (Robitussin DM Syrup) 15 ml Q6H PRN ORAL For Cough 06/29/19 08:00 07/29/19 07:59 06/29/19 15:01 Hydromorphone HCl (Dilaudid) 1.5 mg Q6H PRN IVP MODERATE TO SEVERE PAIN 06/29/19 08:00 07/06/19 07:59 06/29/19 15:01 Insulin Aspart (NovoLOG) BEFORE MEALS SUBQ 06/28/19 16:30 07/28/19 16:29 06/29/19 17:32 Methylprednisolone Sodium Succinate (Solu-MEDROL) 40 mg EVERY 8 HOURS IVP 06/28/19 14:00 07/28/19 13:59 06/29/19 13:05 Nitroglycerin (Ntg) 0.4 mg Q5MIN X 3 DOSES PRN SL CHEST PAIN 06/28/19 14:15 07/28/19 14:14 Pantoprazole (Protonix) 40 mg DAILY ORAL 06/29/19 09:00 07/29/19 08:59 06/29/19 08:35 Piperacillin Sod/ Tazobactam Sod 3.375 gm/Sodium Chloride 110 ml @ 27.5 mls/hr Q8H IVPB 06/28/19 16:00 07/05/19 15:59 06/29/19 15:05 Potassium Chloride (K-Dur) 10 meq DAILY ORAL 06/29/19 09:00 07/29/19 08:59 06/29/19 08:36 Tamsulosin HCl (Flomax) 0.4 mg BEDTIME ORAL 06/28/19 21:00 07/28/19 20:59 06/28/19 21:04 Vitamin D (Vitamin D) 1,000 intlu DAILY ORAL 06/29/19 09:00 07/29/19 08:59 06/29/19 08:35 Moe Hand MD Jun 29, 2019 18:32
--- NOTE | 2019-06-29 18:52 | NUR ---
NURSE NOTES: Dr HERNANDEZ is aware about pt INR results and nose bleeding x3, ordered to keep head back and apply pressure, pt is aware. will continue to monitor.
--- NOTE | 2019-06-29 19:30 | NUR ---
NURSE NOTES: Received patient report from YOCASTA Cordero. Patient was awake laying in bed. Head of the bed is elevated because of nosebleeds. There were no signs of distress noted or pain. He is AOx 4. He is able to ambulate to restroom. Checked IV site, patent, no signs of erythema, blood, or infiltration noted. Bed in the lowest position with brakes on and side rails up x2. Call light within reach. Will continue plan of care.
--- NOTE | 2019-06-29 19:37 | NUR ---
HAND-OFF: Report given to MARITA RUST. Pt is awake and stable. Dr CHURCHILL called back and ordered repeat pt INR morning, noted and carried out.
[2019-06-29 20:00] VITALS: BP 103/64
[2019-06-29] MEDS: Tamsulosin 0.4mg cap ORAL SCH (21:15)
[2019-06-29] MEDS: Atorvastatin 20mg tab ORAL SCH (21:15)
[2019-06-30] VITALS (7 sets, daily range): BP systolic 102–123; BP diastolic 62–70
[2019-06-30] MEDS: Piperacillin/Tazobactam 3.375 GM in NS 110 ML IVPB SCH ×3 (00:19→16:00)
--- NOTE | 2019-06-30 01:00 | NUR ---
NURSE NOTES: Called RT so they could bring a humidifier.
[2019-06-30] MEDS: NovoLOG Insulin Flexpen SUBQ SCH ×3 (06:30→16:30)
[2019-06-30] MEDS: Solu-MEDROL 40mg Inj IVP SCH ×3 (06:43→21:30)
--- NOTE | 2019-06-30 07:15 | Consultation ---
DATE OF CONSULTATION: 06/29/2019 CARDIOLOGY CONSULTATION CONSULTING PHYSICIAN: Quinton Bradley M.D. REFERRING PHYSICIAN: Harsh Maher M.D. REASON FOR CONSULTATION: Evaluation of the patient's cardiomyopathy, atrial fibrillation, and coronary artery disease. HISTORY OF PRESENT ILLNESS: The patient is a 69-year-old gentleman under my Cardiology care for many years with history of hypertension, coronary artery disease as well as history of cardiomyopathy, ejection fraction of 40%, paroxysmal atrial fibrillation with history of ablation in the past, and benign prostatic hypertrophy who was brought to the emergency for increasing shortness of breath and was found to have worsening of pleural effusion. The patient also has history of SVC obstruction and colon cancer. The patient also has history of pulmonary embolism and 01:01 anticoagulation with Coumadin. The patient was admitted and a Cardiology consultation was requested for further evaluation and management. REVIEW OF SYSTEMS: Review of systems was negative other than what was mentioned in history of present illness. PAST MEDICAL HISTORY: 1. Hypertension. 2. History of recurrent atrial flutter. 3. History of atrioventricular kenan reentry tachycardia, status post ablation by me at [facility] in 2017. 4. History of coronary artery disease status post drug-eluting stent. 5. Paroxysmal atrial fibrillation. 6. Non-small cell lung cancer. FAMILY HISTORY: Noncontributory. SOCIAL HISTORY: He lives at home. Does smoke or drink alcohol. PHYSICAL EXAMINATION: VITAL SIGNS: Show blood pressure of 116/65, pulse 90, respirations 18, and temperature 97.3. HEAD AND NECK: Positive JVD. LUNGS: Decreased breath sounds especially on right side. CARDIOVASCULAR: Regular S1 and S2 with no gallop. ABDOMEN: Soft. EXTREMITIES: No pitting edema. LABORATORY AND DIAGNOSTIC DATA: EKG shows sinus tachycardia with heart rate of 119, old anterior wall infarct. His labs show white count of 21.7, hemoglobin 9.3, hematocrit 28, and platelet count is 114. Sodium is 141, potassium 4.2, BUN of 31, creatinine 1.9, and glucose of 169. His INR is 3.6. ASSESSMENT AND PLAN: 1. Right pleural effusion. The patient received vitamin K as INR was 6.4. The patient will be undergoing right-sided thoracentesis. The patient was evaluated for VATS pleurodesis at [facility]. The patient refused the procedure. 2. 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 3. Paroxysmal atrial fibrillation. The patient is on Coumadin that was hold for the procedure. Continue Coreg 25 mg b.i.d. 4. Hypertension, on Coreg 25 b.i.d., Lasix 40 mg IV every 8 hours, and Norvasc 5 mg daily. 5. Elevated white count, likely due to underlying pneumonia, on IV antibiotic. 6. Metastatic non-small cell lung cancer. Further evaluation by Dr. Salguero. Thank you very much for allowing me to participate in the care of this patient. Please do not hesitate to contact me for any questions regarding my evaluation. Sincerely, Quinton Bradley M.D. DR: Andre JOB#: [id number] CC:
[2019-06-30 07:27] LABS: HEMATOCRIT 21.8 % (42.0-52.0); MEAN CORPUSCULAR VOLUME 96 FL (80-99); PLATELET COUNT 98 K/UL (150-450); RED BLOOD COUNT 2.26 M/UL (4.70-6.10); RED CELL DISTRIBUTION WIDTH 20.8 % (11.6-14.8)
[2019-06-30 07:34] LABS: INR 1.6 (0.9-1.1)
[2019-06-30 07:38] LABS: WHITE BLOOD COUNT 40.3 K/UL (4.8-10.8)
--- NOTE | 2019-06-30 07:38 | NUR ---
HAND-OFF: Report given to YOCASTA Dyer. Patient is awake eating breakfast. In stable condition.
--- NOTE | 2019-06-30 08:00 | NUR ---
NURSE NOTES: Recvd pt. Pt is AOx4, pt is on NC @ 2L with no sign of sob or resp distress. Pt has Right AC 22g locked and c/d/i. Pt ST on security monitor. Bed in lowest locked position, call light within reach, will continue with plan of care
[2019-06-30 08:11] LABS: ANION GAP 10 mmol/L (5-15); BLOOD UREA NITROGEN 39 mg/dL (7-18); CALCIUM 8.8 MG/DL (8.5-10.1); CARBON DIOXIDE 30 MMOL/L (21-32); CHLORIDE 101 MMOL/L (98-107); CREATININE 2.2 MG/DL (0.55-1.30); POTASSIUM 3.8 MMOL/L (3.5-5.1); SODIUM 141 MMOL/L (136-145)
--- NOTE | 2019-06-30 08:25 | Hematology/Onc Progress Note ---
Assessment/Plan Assessment/Plan ASSESSMENT AND RECOMMENDATION: 1. Metastatic lung cancer. Getting triple combination chemotherapy, intermittent development of wilver right-sided pleural effusion. The patient has required thoracentesis in the past. Continue to closely monitor the patient's fluid status. --> continue office f/u for chemo --> using picc line for access --> maintain access as is 2. Pulmonary embolism on CT, on anticoagulation on Coumadin. --> inr goal 2-3 --> on coumadin with inr goal 3, on admission was >6 --> FFP and vitk for nose bleed 3. Anemia due to underlying chronic disease. --> ferritin is replete, hold off on iron --> hgb goal >7 4. Nasal bleeding with Thrombocytopenia, likely due to recently administered chemotherapy. --> closely monitor for improvement --> trend as needed 5. Coagulopathy, likely due to underlying liver disease. --> for nose bleed ffp ordered --> also may need procedure --> keep back of head up 6. Pleural effusion --> likely to get thora --> needs CT surg recs immediately, have dw pcp and CT surgeon Sreekanth --> Dr Bradley aware I appreciate consultation and kevin RN Subjective Constitutional: Denies: no symptoms, chills, fever, malaise, weakness, other HEENT: Denies: no symptoms, eye pain, blurred vision, tearing, double vision, ear pain, ear discharge, nose pain, nose congestion, throat pain, throat swelling, mouth pain, mouth swelling, other Cardiovascular: Denies: no symptoms, chest pain, edema, irregular heart rate, lightheadedness, palpitations, syncope, other Respiratory: Denies: no symptoms, cough, shortness of breath, SOB with excertion, SOB at rest, sputum, wheezing, other Gastrointestinal/Abdominal: Denies: no symptoms, abdomen distended, abdominal pain, black stools, tarry stools, blood in stool, constipated, diarrhea, difficulty swallowing, nausea, poor appetite, poor fluid intake, rectal bleeding , vomiting, other Genitourinary: Denies: no symptoms, burning, discharge, frequency, flank pain, hematuria, incontinence, pain, urgency, other Endocrine: Denies: no symptoms, excessive sweating, flushing, intolerance to cold, intolerance to heat, increased hunger, increased thirst, increased urine, unexplained weight gain, unexplained weight loss, other Hematologic/Lymphatic: Denies: no symptoms, anemia, easy bleeding, easy bruising, adenopathy, other Allergies: Coded Allergies: BRITTANI INHIBITORS (Unverified Allergy, Unknown, 03/19/15) Subjective 06/30: inr decreased to 1.6, no bleeding or chills, labs noted, less nasal bleeding Objective Objective Current Medications Medications (Trade) Dose Ordered Sig/Allen Route PRN Reason Start Time Stop Time Status Last Admin Dose Admin Acetaminophen (Tylenol) 650 mg Q4H PRN ORAL Mild Pain/Temp > 100.5 06/28/19 13:30 07/28/19 13:29 Acetaminophen/ Hydrocodone Bitart ([place] 10/325) 1 tab Q4H PRN ORAL For Pain 06/28/19 14:15 07/05/19 14:14 06/29/19 05:21 Amlodipine Besylate (Norvasc) 5 mg DAILY ORAL 06/29/19 09:00 07/29/19 08:59 06/29/19 08:36 Aspirin (Ecotrin) 81 mg DAILY ORAL 06/29/19 09:00 07/29/19 08:59 06/29/19 08:35 Atorvastatin Calcium (Lipitor) 40 mg BEDTIME ORAL 06/28/19 21:00 07/28/19 20:59 06/29/19 21:15 Azithromycin (Zithromax) 250 mg DAILY ORAL 06/29/19 09:00 07/06/19 08:59 06/29/19 08:35 Carvedilol (Coreg) 25 mg EVERY 12 HOURS ORAL 06/28/19 21:00 07/28/19 20:59 06/29/19 08:36 Clonidine HCl (Catapres tab) 0.2 mg DAILYPRN PRN ORAL IF SBP>160 06/28/19 14:30 07/28/19 14:29 Dextrose (Dextrose 50%) 25 ml Q30M PRN IV Hypoglycemia 06/28/19 14:30 07/28/19 14:29 Dextrose (Dextrose 50%) 50 ml Q30M PRN IV Hypoglycemia 06/28/19 14:30 07/28/19 14:29 Diphenhydramine HCl (Benadryl) 25 mg DAILYPRN PRN ORAL Itching 06/28/19 14:15 07/28/19 14:14 Folic Acid (Folate) 1 mg DAILY ORAL 06/29/19 09:00 07/29/19 08:59 06/29/19 08:36 Furosemide (Lasix) 40 mg EVERY 8 HOURS IV 06/28/19 22:00 07/28/19 21:59 06/30/19 06:42 Guaifenesin/ Dextromethorphan (Robitussin DM Syrup) 15 ml Q6H PRN ORAL For Cough 06/29/19 08:00 07/29/19 07:59 06/29/19 21:32 Hydromorphone HCl (Dilaudid) 1.5 mg Q6H PRN IVP MODERATE TO SEVERE PAIN 06/29/19 08:00 07/06/19 07:59 06/30/19 03:24 Insulin Aspart (NovoLOG) BEFORE MEALS SUBQ 06/28/19 16:30 07/28/19 16:29 06/29/19 17:32 Methylprednisolone Sodium Succinate (Solu-MEDROL) 40 mg EVERY 8 HOURS IVP 06/28/19 14:00 07/28/19 13:59 06/30/19 06:43 Nitroglycerin (Ntg) 0.4 mg Q5MIN X 3 DOSES PRN SL CHEST PAIN 06/28/19 14:15 07/28/19 14:14 Pantoprazole (Protonix) 40 mg DAILY ORAL 06/29/19 09:00 07/29/19 08:59 06/29/19 08:35 Piperacillin Sod/ Tazobactam Sod 3.375 gm/Sodium Chloride 110 ml @ 27.5 mls/hr Q8H IVPB 06/28/19 16:00 07/05/19 15:59 06/30/19 00:19 Potassium Chloride (K-Dur) 10 meq DAILY ORAL 06/29/19 09:00 07/29/19 08:59 06/29/19 08:36 Tamsulosin HCl (Flomax) 0.4 mg BEDTIME ORAL 06/28/19 21:00 07/28/19 20:59 06/29/19 21:15 Vitamin D (Vitamin D) 1,000 intlu DAILY ORAL 06/29/19 09:00 07/29/19 08:59 06/29/19 08:35 Last 24 Hour Vital Signs Date Time Temp Pulse Resp B/P (MAP) Pulse Ox O2 Delivery O2 Flow Rate FiO2 06/30/19 04:00 117 06/30/19 04:00 97.9 92 18 112/70 (84) 93 06/30/19 00:00 97.9 89 18 113/70 (84) 97 06/30/19 00:00 93 06/29/19 23:43 98.1 06/29/19 21:00 Nasal Cannula 2.0 06/29/19 21:00 87 103/64 06/29/19 20:00 98.1 87 16 103/64 (77) 93 06/29/19 20:00 92 06/29/19 16:00 97.8 90 20 111/73 (86) 97 06/29/19 15:27 89 06/29/19 11:47 85 06/29/19 11:42 98.0 92 22 117/72 (87) 97 06/29/19 09:00 Nasal Cannula 2.0 06/29/19 08:36 95 116/65 06/29/19 08:36 95 116/65 06/29/19 08:32 97 06/29/19 08:00 97.3 95 20 116/65 (82) 92 06/29/19 04:00 97.5 89 20 102/62 (75) 98 06/29/19 04:00 84 06/29/19 00:00 98.1 87 20 115/73 (87) 94 06/29/19 00:00 89 06/28/19 21:06 106 141/78 06/28/19 21:00 Nasal Cannula 2.0 06/28/19 20:00 98.2 106 21 141/78 (99) 91 06/28/19 20:00 105 06/28/19 16:49 112 06/28/19 16:00 99.0 107 20 122/71 (88) 93 06/28/19 16:00 2.0 06/28/19 15:04 97.0 06/28/19 12:02 111 06/28/19 12:00 2.0 06/28/19 12:00 Nasal Cannula 2.0 06/28/19 11:30 97.0 118 19 119/73 (88) 99 06/28/19 10:55 97.2 99 19 131/81 100 Room Air 06/28/19 09:50 97.2 99 19 131/81 100 Room Air Intake and Output 06/29/19 06/30/19 19:00 07:00 Intake Total 1272.5 ml 487.5 ml Output Total 1200 ml Balance 72.5 ml 487.5 ml Intake Oral 1080 ml 350 ml IV Total 192.5 ml 137.5 ml Output Urine Total 1200 ml # Voids 3 Labs Test 06/28/19 04:45 06/29/19 07:16 06/29/19 10:45 06/30/19 06:25 White Blood Count 21.7 K/UL (4.8-10.8) 40.3 K/UL (4.8-10.8) Red Blood Count 2.95 M/UL (4.70-6.10) 2.26 M/UL (4.70-6.10) Hemoglobin 9.3 G/DL (14.2-18.0) 7.0 G/DL (14.2-18.0) Hematocrit 28.7 % (42.0-52.0) 21.8 % (42.0-52.0) Mean Corpuscular Volume 97 FL (80-99) 96 FL (80-99) Mean Corpuscular Hemoglobin 31.5 PG (27.0-31.0) 30.9 PG (27.0-31.0) Mean Corpuscular Hemoglobin Concent 32.4 G/DL (32.0-36.0) 32.1 G/DL (32.0-36.0) Red Cell Distribution Width 20.9 % (11.6-14.8) 20.8 % (11.6-14.8) Platelet Count 114 K/UL (150-450) 98 K/UL (150-450) Mean Platelet Volume 7.9 FL (6.5-10.1) 8.1 FL (6.5-10.1) Neutrophils (%) (Auto) % (45.0-75.0) % (45.0-75.0) Lymphocytes (%) (Auto) % (20.0-45.0) % (20.0-45.0) Monocytes (%) (Auto) % (1.0-10.0) % (1.0-10.0) Eosinophils (%) (Auto) % (0.0-3.0) % (0.0-3.0) Basophils (%) (Auto) % (0.0-2.0) % (0.0-2.0) Differential Total Cells Counted 100 Neutrophils % (Manual) 88 % (45-75) Lymphocytes % (Manual) 9 % (20-45) Monocytes % (Manual) 3 % (1-10) Eosinophils % (Manual) 0 % (0-3) Basophils % (Manual) 0 % (0-2) Band Neutrophils 0 % (0-8) Platelet Estimate Decreased Platelet Morphology Normal Prothrombin Time 61.9 SEC (9.30-11.50) 36.2 SEC (9.30-11.50) 29.6 SEC (9.30-11.50) 16.2 SEC (9.30-11.50) Prothromb Time International Ratio 6.4 (0.9-1.1) 3.6 (0.9-1.1) 2.9 (0.9-1.1) 1.6 (0.9-1.1) Activated Partial Thromboplast Time 65 SEC (23-33) Sodium Level 140 MMOL/L (136-145) 141 MMOL/L (136-145) 141 MMOL/L (136-145) Potassium Level 4.4 MMOL/L (3.5-5.1) 4.2 MMOL/L (3.5-5.1) 3.8 MMOL/L (3.5-5.1) Chloride Level 105 MMOL/L (98-107) 103 MMOL/L (98-107) 101 MMOL/L (98-107) Carbon Dioxide Level 27 MMOL/L (21-32) 27 MMOL/L (21-32) 30 MMOL/L (21-32) Anion Gap 8 mmol/L (5-15) 11 mmol/L (5-15) 10 mmol/L (5-15) Blood Urea Nitrogen 25 mg/dL (7-18) 31 mg/dL (7-18) 39 mg/dL (7-18) Creatinine 1.6 MG/DL (0.55-1.30) 1.9 MG/DL (0.55-1.30) 2.2 MG/DL (0.55-1.30) Estimat Glomerular Filtration Rate 52.2 mL/min (>60) 42.8 mL/min (>60) 36.1 mL/min (>60) Glucose Level 128 MG/DL (74-106) 169 MG/DL (74-106) 154 MG/DL (74-106) Calcium Level 9.3 MG/DL (8.5-10.1) 8.9 MG/DL (8.5-10.1) 8.8 MG/DL (8.5-10.1) Total Bilirubin 0.8 MG/DL (0.2-1.0) Aspartate Amino Transf (AST/SGOT) 42 U/L (15-37) Alanine Aminotransferase (ALT/SGPT) 26 U/L (12-78) Alkaline Phosphatase 143 U/L (46-116) Troponin I 0.000 ng/mL (0.000-0.056) Pro-B-Type Natriuretic Peptide 2056 pg/mL (0-125) Total Protein 8.3 G/DL (6.4-8.2) Albumin 3.0 G/DL (3.4-5.0) Globulin 5.3 g/dL Albumin/Globulin Ratio 0.6 (1.0-2.7) Carcinoembryonic Antigen 5.3 ng/mL (0.0-4.7) Height (Feet): 5 Height (Inches): 6.00 Weight (Pounds): 130 Objective GENERAL: No acute distress. NECK: supple LUNGS: Decreased breath sounds. CARDIOVASCULAR: Regular rate. No S3 or S4. ABDOMEN: Soft, nontender, and nondistended. EXTREMITIES: 1+ edema. Anurag Salguero MD Jun 30, 2019 08:25
--- NOTE | 2019-06-30 09:37 | NUR ---
CASE MANAGEMENT: REVIEW 06/30/19 SI: NON-SMALL LUNG CA -ON TREATMENT . ANEMIA . EPISTAXIS . DYSPNEA . MASS RIGHT PLEURAL EFFUSION . SUPRATHERAPEUTIC INR . LUNG CANCER AFIB/ATRIAL FLUTTER . PULMONARY EDEMA 97.9 117 18 112/70 93% ON RA WBC 40.3 H/H 7/21.8 PLT 98 BUN 39 CREAT 2.2 BG 154 PT/INR 16.2/1.6 IS:IV ZOSYN Q8HR ZITHROMAX PO QD IV LASIX Q8HR IV SOLU-MEDROL Q8HR NORVASC PO QD COREG PO BID PROTONIX PO QD FLOMAX PO QHS FOLATE PO QD ASPIRIN PO QD \: 2E TELE UNIT PLAN: CT CHEST - PULMONARY EDEMA PLEURAL EFFUSION - LIKELY TO GET (THORA) CONTROL HR- PATIENT STILL TACHY
[2019-06-30] MEDS: Carvedilol 25mg Tab ORAL SCH ×2 (10:07→20:30)
[2019-06-30] MEDS: Aspirin EC 81mg tab ORAL SCH (10:08)
[2019-06-30] MEDS: Vitamin D 1000 IU Tab ORAL SCH (10:08)
[2019-06-30] MEDS: Azithromycin 250mg tab ORAL SCH (10:08)
[2019-06-30] MEDS: Guaifenesin/DM 10ml syrup ORAL PRN (10:15)
--- NOTE | 2019-06-30 10:50 | NUR ---
NURSE NOTES: Called DR Rangel regarding WBC 40.3 Hbg 7.0 plt 98 BNP 2055, awaiting call back. (originally paged DR Tubbs who states to call DR Rangel for orders) Awaiting for call back
--- NOTE | 2019-06-30 12:05 | General Progress Note ---
Assessment/Plan Problem List: (1) atrial fib (2) atrial fib (3) atrial fib (4) Paroxysmal atrial fibrillation ICD Codes: I48.0 - Paroxysmal atrial fibrillation SNOMED: 549865249 (5) CHF (congestive heart failure) ICD Codes: I50.9 - Heart failure, unspecified SNOMED: 47573387 (6) Lung cancer ICD Codes: C34.90 - Malignant neoplasm of unspecified part of unspecified bronchus or lung SNOMED: 155853777 (7) Dyspnea ICD Codes: R06.00 - Dyspnea, unspecified SNOMED: 539209191 (8) Pleural effusion ICD Codes: J90 - Pleural effusion, not elsewhere classified SNOMED: 32665296 (9) Supratherapeutic international normalized ratio (INR) ICD Codes: R79.1 - Abnormal coagulation profile SNOMED: 221659043 (10) Epistaxis ICD Codes: R04.0 - Epistaxis SNOMED: 668111832 Assessment/Plan: hold coumadin, steroids, diuresis, possible thoracentesis, transfuse he agrees Subjective Constitutional: Reports: weakness HEENT: Reports: no symptoms Cardiovascular: Reports: no symptoms Respiratory: Reports: shortness of breath Gastrointestinal/Abdominal: Reports: no symptoms Genitourinary: Reports: no symptoms Neurologic/Psychiatric: Reports: no symptoms Endocrine: Reports: no symptoms Hematologic/Lymphatic: Reports: anemia Allergies: Coded Allergies: BRITTANI INHIBITORS (Unverified Allergy, Unknown, 03/19/15) Objective Last 24 Hour Vital Signs Date Time Temp Pulse Resp B/P (MAP) Pulse Ox O2 Delivery O2 Flow Rate FiO2 06/30/19 10:46 98.1 06/30/19 10:08 113 119/67 06/30/19 10:07 113 119/67 06/30/19 09:00 Nasal Cannula 2.0 06/30/19 08:00 98.1 94 20 119/67 (84) 93 06/30/19 08:00 113 06/30/19 04:00 117 06/30/19 04:00 97.9 92 18 112/70 (84) 93 06/30/19 00:00 97.9 89 18 113/70 (84) 97 06/30/19 00:00 93 06/29/19 21:00 Nasal Cannula 2.0 06/29/19 21:00 87 103/64 06/29/19 20:00 98.1 87 16 103/64 (77) 93 06/29/19 20:00 92 06/29/19 16:00 97.8 90 20 111/73 (86) 97 06/29/19 15:27 89 Intake and Output 06/29/19 06/30/19 19:00 07:00 Intake Total 1272.5 ml 487.5 ml Output Total 1200 ml Balance 72.5 ml 487.5 ml Intake Oral 1080 ml 350 ml IV Total 192.5 ml 137.5 ml Output Urine Total 1200 ml # Voids 3 Laboratory Tests 06/30/19 06:25: White Blood Count 40.3*H, Red Blood Count 2.26L, Hemoglobin 7.0L, Hematocrit 21.8L, Mean Corpuscular Volume 96, Mean Corpuscular Hemoglobin 30.9, Mean Corpuscular Hemoglobin Concent 32.1, Red Cell Distribution Width 20.8H, Platelet Count 98L, Mean Platelet Volume 8.1, Neutrophils (%) (Auto) , Lymphocytes (%) (Auto) , Monocytes (%) (Auto) , Eosinophils (%) (Auto) , Basophils (%) (Auto) , Differential Total Cells Counted 100, Neutrophils % ( Manual) 95H, Lymphocytes % (Manual) 3L, Monocytes % (Manual) 2, Eosinophils % ( Manual) 0, Basophils % (Manual) 0, Band Neutrophils 0, Platelet Estimate DecreasedL, Platelet Morphology Normal, Hypochromasia 3+, Anisocytosis 2+, Prothrombin Time 16.2H, Prothromb Time International Ratio 1.6H, Sodium Level 141, Potassium Level 3.8, Chloride Level 101, Carbon Dioxide Level 30, Anion Gap 10, Blood Urea Nitrogen 39H, Creatinine 2.2H, Estimat Glomerular Filtration Rate 36.1, Glucose Level 154H, Calcium Level 8.8, Troponin I 0.000 Height (Feet): 5 Height (Inches): 6.00 Weight (Pounds): 130 General Appearance: no apparent distress, alert EENT: normal ENT inspection Neck: normal alignment Cardiovascular: normal rate, regular rhythm Respiratory/Chest: decreased breath sounds Abdomen: non tender Edema: no edema noted Arm (L), no edema noted Arm (R), no edema noted Leg (L), no edema noted Leg (R), no edema noted Pedal (L), no edema noted Pedal (R), no edema noted Generalized Neurologic: 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
--- NOTE | 2019-06-30 12:58 | Pulmonology Progress Note ---
Assessment/Plan Assessment/Plan IMPRESSION: 1. Massive pleural effusion. Unclear if the patient has hemothorax. 2. Hypercoagulable state, now coagulopathy. 3. Small-cell cancer. 4. COPD. 5. CHF. 6. leukocytosis PLAN proceed with tap check for hemothorax wbc very high onc and ID follow up care noted and reviewed impression, plan, and exam edited and reviewed in detail care discussed with RN Subjective Allergies: Coded Allergies: BRITTANI INHIBITORS (Unverified Allergy, Unknown, 03/19/15) Objective Last 24 Hour Vital Signs Date Time Temp Pulse Resp B/P (MAP) Pulse Ox O2 Delivery O2 Flow Rate FiO2 06/30/19 12:00 97.7 101 20 102/62 (75) 92 06/30/19 10:46 98.1 06/30/19 10:08 113 119/67 06/30/19 10:07 113 119/67 06/30/19 09:00 Nasal Cannula 2.0 06/30/19 08:00 98.1 94 20 119/67 (84) 93 06/30/19 08:00 113 06/30/19 04:00 117 06/30/19 04:00 97.9 92 18 112/70 (84) 93 06/30/19 00:00 97.9 89 18 113/70 (84) 97 06/30/19 00:00 93 06/29/19 21:00 Nasal Cannula 2.0 06/29/19 21:00 87 103/64 06/29/19 20:00 98.1 87 16 103/64 (77) 93 06/29/19 20:00 92 06/29/19 16:00 97.8 90 20 111/73 (86) 97 06/29/19 15:27 89 Intake and Output 06/29/19 06/30/19 19:00 07:00 Intake Total 1272.5 ml 487.5 ml Output Total 1200 ml Balance 72.5 ml 487.5 ml Intake Oral 1080 ml 350 ml IV Total 192.5 ml 137.5 ml Output Urine Total 1200 ml # Voids 3 Objective GENERAL: A well-developed male, comfortable at present. NAD HEENT: Negative. NECK: Supple. The patient has no jugular venous distention. LUNGS: With significantly reduced breath sounds of the right lung, otherwise fairly clear. CARDIAC: Slightly tachycardic. ABDOMEN: Overall soft, nontender. EXTREMITIES: No cyanosis or clubbing. Mild edema. NEUROLOGIC: Nonfocal. Laboratory Tests 06/30/19 06:25: White Blood Count 40.3*H, Red Blood Count 2.26L, Hemoglobin 7.0L, Hematocrit 21.8L, Mean Corpuscular Volume 96, Mean Corpuscular Hemoglobin 30.9, Mean Corpuscular Hemoglobin Concent 32.1, Red Cell Distribution Width 20.8H, Platelet Count 98L, Mean Platelet Volume 8.1, Neutrophils (%) (Auto) , Lymphocytes (%) (Auto) , Monocytes (%) (Auto) , Eosinophils (%) (Auto) , Basophils (%) (Auto) , Differential Total Cells Counted 100, Neutrophils % ( Manual) 95H, Lymphocytes % (Manual) 3L, Monocytes % (Manual) 2, Eosinophils % ( Manual) 0, Basophils % (Manual) 0, Band Neutrophils 0, Platelet Estimate DecreasedL, Platelet Morphology Normal, Hypochromasia 3+, Anisocytosis 2+, Prothrombin Time 16.2H, Prothromb Time International Ratio 1.6H, Sodium Level 141, Potassium Level 3.8, Chloride Level 101, Carbon Dioxide Level 30, Anion Gap 10, Blood Urea Nitrogen 39H, Creatinine 2.2H, Estimat Glomerular Filtration Rate 36.1, Glucose Level 154H, Calcium Level 8.8, Troponin I 0.000 Current Medications Medications (Trade) Dose Ordered Sig/Allen Route PRN Reason Start Time Stop Time Status Last Admin Dose Admin Acetaminophen (Tylenol) 650 mg Q4H PRN ORAL Mild Pain/Temp > 100.5 06/28/19 13:30 07/28/19 13:29 Acetaminophen/ Hydrocodone Bitart ([place] 10/325) 1 tab Q4H PRN ORAL For Pain 06/28/19 14:15 07/05/19 14:14 06/29/19 05:21 Amlodipine Besylate (Norvasc) 5 mg DAILY ORAL 06/29/19 09:00 07/29/19 08:59 06/30/19 10:08 Aspirin (Ecotrin) 81 mg DAILY ORAL 06/29/19 09:00 07/29/19 08:59 06/30/19 10:08 Atorvastatin Calcium (Lipitor) 40 mg BEDTIME ORAL 06/28/19 21:00 3/12/20 20:59 06/29/19 21:15 Azithromycin (Zithromax) 250 mg DAILY ORAL 06/29/19 09:00 07/06/19 08:59 06/30/19 10:08 Carvedilol (Coreg) 25 mg EVERY 12 HOURS ORAL 06/28/19 21:00 07/28/19 20:59 06/30/19 10:07 Clonidine HCl (Catapres tab) 0.2 mg DAILYPRN PRN ORAL IF SBP>160 06/28/19 14:30 07/28/19 14:29 Dextrose (Dextrose 50%) 25 ml Q30M PRN IV Hypoglycemia 06/28/19 14:30 07/28/19 14:29 Dextrose (Dextrose 50%) 50 ml Q30M PRN IV Hypoglycemia 06/28/19 14:30 07/28/19 14:29 Diphenhydramine HCl (Benadryl) 25 mg DAILYPRN PRN ORAL Itching 06/28/19 14:15 07/28/19 14:14 Folic Acid (Folate) 1 mg DAILY ORAL 06/29/19 09:00 07/29/19 08:59 06/30/19 10:07 Furosemide (Lasix) 40 mg EVERY 8 HOURS IV 06/28/19 22:00 07/28/19 21:59 06/30/19 06:42 Guaifenesin/ Dextromethorphan (Robitussin DM Syrup) 15 ml Q6H PRN ORAL For Cough 06/29/19 08:00 07/29/19 07:59 06/30/19 10:15 Hydromorphone HCl (Dilaudid) 1.5 mg Q6H PRN IVP MODERATE TO SEVERE PAIN 06/29/19 08:00 07/06/19 07:59 06/30/19 10:15 Insulin Aspart (NovoLOG) BEFORE MEALS SUBQ 06/28/19 16:30 07/28/19 16:29 06/30/19 12:26 Methylprednisolone Sodium Succinate (Solu-MEDROL) 40 mg EVERY 8 HOURS IVP 06/28/19 14:00 07/28/19 13:59 06/30/19 06:43 Nitroglycerin (Ntg) 0.4 mg Q5MIN X 3 DOSES PRN SL CHEST PAIN 06/28/19 14:15 07/28/19 14:14 Pantoprazole (Protonix) 40 mg DAILY ORAL 06/29/19 09:00 07/29/19 08:59 06/30/19 10:07 Piperacillin Sod/ Tazobactam Sod 3.375 gm/Sodium Chloride 110 ml @ 27.5 mls/hr Q8H IVPB 06/28/19 16:00 07/05/19 15:59 06/30/19 10:14 Potassium Chloride (K-Dur) 10 meq DAILY ORAL 06/29/19 09:00 07/29/19 08:59 06/30/19 10:07 Tamsulosin HCl (Flomax) 0.4 mg BEDTIME ORAL 06/28/19 21:00 07/28/19 20:59 06/29/19 21:15 Vitamin D (Vitamin D) 1,000 intlu DAILY ORAL 06/29/19 09:00 07/29/19 08:59 06/30/19 10:08 Albino Otero MD Jun 30, 2019 12:58
--- NOTE | 2019-06-30 14:17 | NUR ---
NURSE NOTES: Blood transfusion started at 1412, vital signs taken, will continue to monitor
--- NOTE | 2019-06-30 14:41 | NUR ---
NURSE NOTES: per blood tech, unable to release unit of platelets unless the platelets are under 20. platelets are currently 98. will continue with plan of care
--- NOTE | 2019-06-30 14:43 | NUR ---
NURSE NOTES: per radiologist ok to do blood transfusion and thoracentesis simultaneously. Pt had no adverse reactions for first 15 min. vss.
--- NOTE | 2019-06-30 15:16 | Pre-Procedure Note/Attestation ---
Pre-Procedure Note/Attestation Complete Prior to Procedure Planned Procedure: right Procedure Narrative: thoracentesis Indications for Procedure Pre-Operative Diagnosis: R pleural effusion Attestation I attest that I discussed the nature of the procedure; its benefits; risks and complications; and alternatives (and the risks and benefits of such alternatives ), prior to the procedure, with the patient (or the patient's legal promotions representative). I attest that, if there was a reasonable possibility of needing a blood transfusion, the patient (or the patient's legal promotions representative) was given the [facility] standardized written summary, pursuant to the [employer] [place] Blood Safety Act ([place] Health and Safety Code # 1645, as amended). I attest that I re-evaluated the patient just prior to the surgery and that there has been no change in the patient's H&P, except as documented below: Ricardo Meade MD Jun 30, 2019 15:16
--- NOTE | 2019-06-30 15:18 | Brief Operative Note ---
Immediate Post Operative Note Operative Note Pre-op Diagnosis: R pleural effusion Procedure: R thoracentesis Post-op Diagnosis: same Findings: other - fluid completely loculated Surgeon: Ellis Augustine Anesthesia: local Specimen: yes - 5 ml bloody fluid Complications: none Condition: stable Fluids: none Implant(s) used?: No Ricardo Augustine MD Jun 30, 2019 15:18
--- NOTE | 2019-06-30 15:59 | Cardiac Electrophysiology PN ---
Assessment/Plan Assessment/Plan 1. Right pleural effusion. The patient received vitamin K as INR was 6.4. S/P right-sided thoracentesis today of only 10cc. The patient was evaluated for VATS pleurodesis at [facility]. 2. 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 3. Paroxysmal atrial fibrillation. The patient is on Coumadin that was hold for the procedure. Continue Coreg 25 mg b.i.d. 4. Hypertension, on Coreg 25 b.i.d., Lasix 40 mg IV every 8 hours, and Norvasc 5 mg daily. 5. Elevated white count, likely due to underlying pneumonia, on IV antibiotic. 6. Metastatic non-small cell lung cancer. Further evaluation by Dr. Salguero. DW Dr Martinez Subjective Subjective Just came back from Thoracentesis but only 10 cc removed as it is loculated Objective Last 24 Hour Vital Signs Date Time Temp Pulse Resp B/P (MAP) Pulse Ox O2 Delivery O2 Flow Rate FiO2 06/30/19 12:00 114 06/30/19 12:00 97.7 101 20 102/62 (75) 92 06/30/19 10:46 98.1 06/30/19 10:08 113 119/67 06/30/19 10:07 113 119/67 06/30/19 09:00 Nasal Cannula 2.0 06/30/19 08:00 98.1 94 20 119/67 (84) 93 06/30/19 08:00 113 06/30/19 04:00 117 06/30/19 04:00 97.9 92 18 112/70 (84) 93 06/30/19 00:00 97.9 89 18 113/70 (84) 97 06/30/19 00:00 93 06/29/19 21:00 Nasal Cannula 2.0 06/29/19 21:00 87 103/64 06/29/19 20:00 98.1 87 16 103/64 (77) 93 06/29/19 20:00 92 06/29/19 16:00 97.8 90 20 111/73 (86) 97 Intake and Output 06/29/19 06/30/19 19:00 07:00 Intake Total 1272.5 ml 487.5 ml Output Total 1200 ml Balance 72.5 ml 487.5 ml Intake Oral 1080 ml 350 ml IV Total 192.5 ml 137.5 ml Output Urine Total 1200 ml # Voids 3 Laboratory Tests Test 06/30/19 06:25 White Blood Count 40.3 K/UL (4.8-10.8) *H Red Blood Count 2.26 M/UL (4.70-6.10) L Hemoglobin 7.0 G/DL (14.2-18.0) L Hematocrit 21.8 % (42.0-52.0) L Mean Corpuscular Volume 96 FL (80-99) Mean Corpuscular Hemoglobin 30.9 PG (27.0-31.0) Mean Corpuscular Hemoglobin Concent 32.1 G/DL (32.0-36.0) Red Cell Distribution Width 20.8 % (11.6-14.8) H Platelet Count 98 K/UL (150-450) L Mean Platelet Volume 8.1 FL (6.5-10.1) Neutrophils (%) (Auto) % (45.0-75.0) Lymphocytes (%) (Auto) % (20.0-45.0) Monocytes (%) (Auto) % (1.0-10.0) Eosinophils (%) (Auto) % (0.0-3.0) Basophils (%) (Auto) % (0.0-2.0) Differential Total Cells Counted 100 Neutrophils % (Manual) 95 % (45-75) H Lymphocytes % (Manual) 3 % (20-45) L Monocytes % (Manual) 2 % (1-10) Eosinophils % (Manual) 0 % (0-3) Basophils % (Manual) 0 % (0-2) Band Neutrophils 0 % (0-8) Platelet Estimate Decreased L Platelet Morphology Normal Hypochromasia 3+ Anisocytosis 2+ Prothrombin Time 16.2 SEC (9.30-11.50) H Prothromb Time International Ratio 1.6 (0.9-1.1) H Sodium Level 141 MMOL/L (136-145) Potassium Level 3.8 MMOL/L (3.5-5.1) Chloride Level 101 MMOL/L (98-107) Carbon Dioxide Level 30 MMOL/L (21-32) Anion Gap 10 mmol/L (5-15) Blood Urea Nitrogen 39 mg/dL (7-18) H Creatinine 2.2 MG/DL (0.55-1.30) H Estimat Glomerular Filtration Rate 36.1 mL/min (>60) Glucose Level 154 MG/DL (74-106) H Calcium Level 8.8 MG/DL (8.5-10.1) Troponin I 0.000 ng/mL (0.000-0.056) Objective HEAD AND NECK: Positive JVD. LUNGS: Decreased breath sounds especially on right side. CARDIOVASCULAR: Regular S1 and S2 with no gallop. ABDOMEN: Soft. EXTREMITIES: No pitting edema. Quinton Bradley MD Jun 30, 2019 15:59
--- NOTE | 2019-06-30 16:22 | Diagnostic Imaging Report ---
Indication: Status post thoracentesis Technique: One view of the chest Comparison: 06/28/2019 Findings: Again demonstrated is combination of pleural fluid and tumor occupying most of the right hemithorax. This is unchanged. No pneumothorax demonstrated. Left lung and pleural space remain clear. Impression: No change in right pleural fluid and tumor; this is expected status post low volume thoracentesis. No radiographically evident complication
--- NOTE | 2019-06-30 16:58 | Diagnostic Imaging Report ---
Indications: Pleural effusion Technique: Ultrasound used to localize optimal puncture site. Sterile prepping and draping right chest. Local anesthesia with 1% lidocaine. Under real-time ultrasound guidance, puncture pleural space using thoracentesis needle. Stylet removed. Catheter placed to vacuum bottle suction. Total 5 milliliters of bloody fluid aspirated. Patient tolerated procedure well, without immediate complication. Findings: Initial sonography demonstrates complex multiloculated avascular collection within the right hemithorax. Followup sonography demonstrates essentially no change Impression: Ultrasound-guided thoracentesis of heavily loculated fluid collection, yielding scant (approximately 5 mm) bloody pleural fluid
--- NOTE | 2019-06-30 17:16 | NUR ---
DISCHARGE PLANNING: PATIENT HAS BEEN REFERRED FOR HOME HEALTH [facility] FOR WHICH HOME HEALTH PREFERRED SINCE NO ANSWER SINCE 2PM HAVING RN PAGE WILL F/U IN AM
--- NOTE | 2019-06-30 18:46 | NUR ---
NURSE NOTES: 2nd unit of PRBC started at 1840 and witnessed by Shannan RUST
--- NOTE | 2019-06-30 19:00 | NUR ---
OBTAINED REPORT FROM YOCASTA SMART. PT IN NO APPARENT DISTRESS. HE IS CURRENTLY RECEIVING 2ND UNIT OF PRBC. TOLERATING WELL.
--- NOTE | 2019-06-30 19:05 | NUR ---
PER SHIFT CHANGE REPORT, LAB CAN ONLY RELEASE 2 UNITS OF PRBC FOR NOW UNTIL HGB/HCT IS RECHECKED AND PLATELETS CANNOT BE GIVEN UNLESS UNDER 20 PER HOSPITAL POLICY. WILL INQUIRE ON RECEIVING 3RD UNIT OF PRBC IF NEEDED. Addendum: 07/01/19 at 0756 by Chantell Love RN TOTAL OF 2 UNITS PRBC GIVEN 06/30/19, HGB NOW IMPROVED AT 8.4 AND WBC TRENDING DOWN AT 32.5, DAY SHIFT RN MADE AWARE.
[2019-06-30] MEDS: Tamsulosin 0.4mg cap ORAL SCH (20:29)
[2019-06-30] MEDS: Atorvastatin 20mg tab ORAL SCH (20:30)
[2019-06-30] MEDS: HYDROcodone/Acetamin 10/325 tab ORAL PRN (20:31)
--- NOTE | 2019-06-30 22:30 | NUR ---
2ND UNIT OF PRBC NOW COMPLETE. NO ADVERSE REACTION NOTED. VSS.
[2019-07-01] VITALS: BP 122/77
[2019-07-01] MEDS: Piperacillin/Tazobactam 3.375 GM in NS 110 ML IVPB SCH ×3 (00:28→15:39)
--- NOTE | 2019-07-01 03:45 | Consultation ---
DATE OF CONSULTATION: 06/30/2019 CONSULTING PHYSICIAN: En Streeter M.D. REASON FOR CONSULTATION: Right recurrent pleural effusion. HISTORY OF PRESENT ILLNESS: This is a very pleasant 69-year-old gentleman who I had previously evaluated in regards to his recurrent right pleural effusion. The patient was seen and evaluated, and a full physical exam was done. In summary, this patient has presented pleurodesis a few months ago; however, he refused. Also, at this point in time, I recommend to continue only the medical management and I do not recommend VATS procedure due to the fact that the patient is quite sick. His INR is elevated as well as his BUN and creatinine. His white count is also elevated, and platelets and his hematocrit are extremely low. I will discuss the plan with Dr. 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 I have also discussed the plans with oncologist, his pulmonary team, and the patient underwent a thoracentesis today. However, unfortunately, 10 mL of fluid was able to be drained. At this point in time, again I recommend only to continue same medical management. I will re-evaluate p.r.n. However, if his cardiac condition will not allow him to have general anesthesia, VATS pleurodesis would not be able to be done. Again, I will discuss the plan with Cardiology and follow up. En Streeter M.D. DR: CARLITOS JOB#: [id number] CC:
[2019-07-01 04:00] VITALS: BP 109/75
[2019-07-01] MEDS: Solu-MEDROL 40mg Inj IVP SCH ×3 (05:13→20:50)
[2019-07-01] MEDS: HYDROcodone/Acetamin 10/325 tab ORAL PRN (05:14)
[2019-07-01] MEDS: NovoLOG Insulin Flexpen SUBQ SCH ×3 (06:13→16:30)
--- NOTE | 2019-07-01 06:20 | NUR ---
CALLED MD RICK AND LEFT MESSAGE WITH CALL BACK INFO PROVIDED TO MAKE AWARE PATIENT HAD 10 BEATS OF V-TACH DURING TURNING LATHE TENDER, NOW ST WITH HR 109. PT IN NO APPARENT DISTRESS.
[2019-07-01 06:37] LABS: HEMATOCRIT 25.2 % (42.0-52.0); HEMOGLOBIN 8.4 G/DL (14.2-18.0); MEAN CORPUSCULAR VOLUME 94 FL (80-99); PLATELET COUNT 93 K/UL (150-450); RED BLOOD COUNT 2.69 M/UL (4.70-6.10)
[2019-07-01 06:58] LABS: ANION GAP 13 mmol/L (5-15); BLOOD UREA NITROGEN 48 mg/dL (7-18); CALCIUM 8.1 MG/DL (8.5-10.1); CARBON DIOXIDE 29 MMOL/L (21-32); CHLORIDE 100 MMOL/L (98-107); CREATININE 2.3 MG/DL (0.55-1.30); POTASSIUM 3.6 MMOL/L (3.5-5.1); SODIUM 142 MMOL/L (136-145)
[2019-07-01 07:19] LABS: WHITE BLOOD COUNT 32.5 K/UL (4.8-10.8)
--- NOTE | 2019-07-01 07:30 | NUR ---
GAVE FULL REPORT TO YOCASTA GAUTHIER. PT IN NO APPARENT DISTRESS.
--- NOTE | 2019-07-01 07:30 | NUR ---
NURSE NOTES: Received report from YOCASTA Abdul. Pt A/Ox4, observed eating breakfast. Denies any pain, no s/sx of acute distress. Breathing even and unlabored in RA. Lab report shows improving WBC from 40.3 to 32.5, hgb from 7.0 to 8.4 today. Bed on lowest position, call light within reach. Will continue to monitor.
[2019-07-01 08:00] VITALS: BP 110/75
[2019-07-01] MEDS: Azithromycin 250mg tab ORAL SCH (08:39)
[2019-07-01] MEDS: Vitamin D 1000 IU Tab ORAL SCH (08:40)
--- NOTE | 2019-07-01 08:48 | NUR ---
CASE MANAGEMENT: REVIEW 06/30/19 SI: S/P THORACENTESIS . LARGE RIGHT PLEURAL EFFUSION . ANEMIA . EPISTAXIS . DYSPNEA . MASS RIGHT NON-SMALL LUNG CA -ON TREATMENT . SUPRATHERAPEUTIC INR . 97.9 117 18 112/70 93% ON RA WBC 32.5 H/H 8.4/25.2 PLT 93 BUN 48 CREAT 2.3 BG 189 CA+8.1 IS:IV ZOSYN Q8HR ZITHROMAX PO QD IV LASIX Q8HR IV SOLU-MEDROL Q8HR NORVASC PO QD COREG PO BID PROTONIX PO QD FLOMAX PO QHS FOLATE PO QD ASPIRIN PO QD \: 2E TELE UNIT PLAN: CHEST X-RAY STILL SHOWS LARGE PLEURAL EFFUSION CT CHEST - PULMONARY EDEMA S/P THORA- 5ML YIELD CONTROL HR- PATIENT STILL TACHY
[2019-07-01] MEDS: Guaifenesin/DM 10ml syrup ORAL PRN (08:54)
--- NOTE | 2019-07-01 08:54 | Pulmonology Progress Note ---
Assessment/Plan Assessment/Plan IMPRESSION: 1. Massive pleural effusion. Unclear if the patient has hemothorax. 2. Hypercoagulable state, now coagulopathy. 3. Small-cell cancer. 4. COPD. 5. CHF. 6. leukocytosis PLAN recommend VATS for decortication and pleurodesis will need cards clearance defer to thoracic onc and ID follow up care noted and reviewed impression, plan, and exam edited and reviewed in detail care discussed with RN Subjective Allergies: Coded Allergies: BRITTANI INHIBITORS (Unverified Allergy, Unknown, 03/19/15) Subjective d/w thoracic d/w radiology loculated effusion Objective Last 24 Hour Vital Signs Date Time Temp Pulse Resp B/P (MAP) Pulse Ox O2 Delivery O2 Flow Rate FiO2 07/01/19 08:00 98.2 104 20 110/75 (87) 95 07/01/19 04:00 98.1 97 18 109/75 (86) 98 07/01/19 04:00 111 07/01/19 00:00 94 07/01/19 00:00 97.6 100 18 122/77 (92) 96 06/30/19 22:30 98.0 98 20 118/65 (82) 95 06/30/19 20:30 91 120/70 06/30/19 20:00 97.7 95 18 123/70 (87) 95 06/30/19 20:00 Nasal Cannula 2.0 06/30/19 20:00 100 06/30/19 17:28 97.7 06/30/19 16:00 102 06/30/19 16:00 97.7 97 20 114/66 (82) 93 06/30/19 12:00 114 06/30/19 12:00 97.7 101 20 102/62 (75) 92 06/30/19 10:08 113 119/67 06/30/19 10:07 113 119/67 06/30/19 09:00 Nasal Cannula 2.0 Intake and Output 06/30/19 07/01/19 19:00 07:00 Intake Total 740 ml Output Total 1800 ml 1000 ml Balance -1060 ml -1000 ml Intake Oral 740 ml Output Urine Total 1800 ml 1000 ml Objective GENERAL: A well-developed male, comfortable at present. NAD HEENT: Negative. NECK: Supple. The patient has no jugular venous distention. LUNGS: With significantly reduced breath sounds of the right lung, otherwise fairly clear. CARDIAC: Slightly tachycardic. ABDOMEN: Overall soft, nontender. EXTREMITIES: No cyanosis or clubbing. Mild edema. NEUROLOGIC: Nonfocal. Laboratory Tests 07/01/19 05:19: White Blood Count 32.5*H, Red Blood Count 2.69L, Hemoglobin 8.4L, Hematocrit 25.2L, Mean Corpuscular Volume 94, Mean Corpuscular Hemoglobin 31.3H, Mean Corpuscular Hemoglobin Concent 33.5, Red Cell Distribution Width 20.0H, Platelet Count 93L, Mean Platelet Volume 7.1, Neutrophils (%) (Auto) , Lymphocytes (%) (Auto) , Monocytes (%) (Auto) , Eosinophils (%) (Auto) , Basophils (%) (Auto) , Neutrophils % (Manual) [Pending], Lymphocytes % (Manual) [Pending], Platelet Estimate [Pending], Platelet Morphology [Pending], Sodium Level 142, Potassium Level 3.6, Chloride Level 100, Carbon Dioxide Level 29, Anion Gap 13, Blood Urea Nitrogen 48H, Creatinine 2.3H, Estimat Glomerular Filtration Rate 34.3, Glucose Level 189H, Calcium Level 8.1L Current Medications Medications (Trade) Dose Ordered Sig/Allen Route PRN Reason Start Time Stop Time Status Last Admin Dose Admin Acetaminophen (Tylenol) 650 mg Q4H PRN ORAL Mild Pain/Temp > 100.5 06/28/19 13:30 07/28/19 13:29 Acetaminophen/ Hydrocodone Bitart ([place] 10/325) 1 tab Q4H PRN ORAL For Pain 06/28/19 14:15 07/05/19 14:14 07/01/19 05:14 Amlodipine Besylate (Norvasc) 5 mg DAILY ORAL 06/29/19 09:00 07/29/19 08:59 06/30/19 10:08 Aspirin (Ecotrin) 81 mg DAILY ORAL 06/29/19 09:00 07/29/19 08:59 06/30/19 10:08 Atorvastatin Calcium (Lipitor) 40 mg BEDTIME ORAL 06/28/19 21:00 07/28/19 20:59 06/30/19 20:30 Azithromycin (Zithromax) 250 mg DAILY ORAL 06/29/19 09:00 07/06/19 08:59 07/01/19 08:39 Carvedilol (Coreg) 25 mg EVERY 12 HOURS ORAL 06/28/19 21:00 07/28/19 20:59 06/30/19 20:30 Clonidine HCl (Catapres tab) 0.2 mg DAILYPRN PRN ORAL IF SBP>160 06/28/19 14:30 07/28/19 14:29 Dextrose (Dextrose 50%) 25 ml Q30M PRN IV Hypoglycemia 06/28/19 14:30 07/28/19 14:29 Dextrose (Dextrose 50%) 50 ml Q30M PRN IV Hypoglycemia 06/28/19 14:30 07/28/19 14:29 Diphenhydramine HCl (Benadryl) 25 mg DAILYPRN PRN ORAL Itching 06/28/19 14:15 07/28/19 14:14 06/30/19 21:31 Folic Acid (Folate) 1 mg DAILY ORAL 06/29/19 09:00 07/29/19 08:59 07/01/19 08:40 Furosemide (Lasix) 40 mg EVERY 8 HOURS IV 06/28/19 22:00 07/28/19 21:59 07/01/19 05:14 Guaifenesin/ Dextromethorphan (Robitussin DM Syrup) 15 ml Q6H PRN ORAL For Cough 06/29/19 08:00 07/29/19 07:59 06/30/19 10:15 Hydromorphone HCl (Dilaudid) 1.5 mg Q6H PRN IVP MODERATE TO SEVERE PAIN 06/29/19 08:00 07/06/19 07:59 07/01/19 06:45 Insulin Aspart (NovoLOG) BEFORE MEALS SUBQ 06/28/19 16:30 07/28/19 16:29 06/30/19 12:26 Methylprednisolone Sodium Succinate (Solu-MEDROL) 40 mg EVERY 8 HOURS IVP 06/28/19 14:00 07/28/19 13:59 07/01/19 05:13 Nitroglycerin (Ntg) 0.4 mg Q5MIN X 3 DOSES PRN SL CHEST PAIN 06/28/19 14:15 07/28/19 14:14 Pantoprazole (Protonix) 40 mg DAILY ORAL 06/29/19 09:00 07/29/19 08:59 07/01/19 08:39 Piperacillin Sod/ Tazobactam Sod 3.375 gm/Sodium Chloride 110 ml @ 27.5 mls/hr Q8H IVPB 06/28/19 16:00 07/05/19 15:59 07/01/19 08:39 Potassium Chloride (K-Dur) 10 meq DAILY ORAL 06/29/19 09:00 07/29/19 08:59 07/01/19 08:39 Tamsulosin HCl (Flomax) 0.4 mg BEDTIME ORAL 06/28/19 21:00 07/28/19 20:59 06/30/19 20:29 Vitamin D (Vitamin D) 1,000 intlu DAILY ORAL 06/29/19 09:00 07/29/19 08:59 07/01/19 08:40 Albino Otero MD Jul 01, 2019 08:54
[2019-07-01] MEDS: Carvedilol 25mg Tab ORAL SCH ×2 (08:56→20:50)
[2019-07-01] MEDS: Aspirin EC 81mg tab ORAL SCH (08:58)
--- NOTE | 2019-07-01 11:22 | Cardiac Electrophysiology PN ---
Assessment/Plan Assessment/Plan 1. Massive Right pleural effusion. The patient received vitamin K as INR was 6.4. S/P right-sided thoracentesis 06/30/19 of only 10cc. Needs VATS/ pleurodesis but is at high risk. 2. 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 3. Paroxysmal atrial fibrillation with RVR 150s today. In atrial fib now in 150s. Coreg 25 mg b.i.d. and coumadin Change Norvasc to Cardizem 60 tid and give 0.5 iv Digoxin. May need to transfer to ICU 4. Hypertension, on Coreg 25 b.i.d., Lasix 40 mg IV every 8 hours, and change Norvasc to Cardizem 5. Elevated white count, likely due to underlying pneumonia, on IV antibiotic. 6. Metastatic non-small cell lung cancer. Further evaluation by Dr. Salguero. 7. SVC obstruction DW RN and Dr Martinez Subjective Subjective Has Massive Right pleural effusion but Thoracentesis but only 10 cc removed as it is loculated. Needs VATS/Pleurodesis but high risk procedure for him Objective Last 24 Hour Vital Signs Date Time Temp Pulse Resp B/P (MAP) Pulse Ox O2 Delivery O2 Flow Rate FiO2 07/01/19 09:00 Nasal Cannula 2.0 07/01/19 08:58 104 110/75 07/01/19 08:56 104 110/75 07/01/19 08:00 98.2 104 20 110/75 (87) 95 07/01/19 07:49 121 07/01/19 04:00 98.1 97 18 109/75 (86) 98 07/01/19 04:00 111 07/01/19 00:00 94 07/01/19 00:00 97.6 100 18 122/77 (92) 96 06/30/19 22:30 98.0 98 20 118/65 (82) 95 06/30/19 20:30 91 120/70 06/30/19 20:00 97.7 95 18 123/70 (87) 95 06/30/19 20:00 Nasal Cannula 2.0 06/30/19 20:00 100 06/30/19 17:28 97.7 06/30/19 16:00 102 06/30/19 16:00 97.7 97 20 114/66 (82) 93 06/30/19 12:00 114 06/30/19 12:00 97.7 101 20 102/62 (75) 92 Intake and Output 06/30/19 07/01/19 19:00 07:00 Intake Total 740 ml Output Total 1800 ml 1000 ml Balance -1060 ml -1000 ml Intake Oral 740 ml Output Urine Total 1800 ml 1000 ml Laboratory Tests Test 07/01/19 05:19 White Blood Count 32.5 K/UL (4.8-10.8) *H Red Blood Count 2.69 M/UL (4.70-6.10) L Hemoglobin 8.4 G/DL (14.2-18.0) L Hematocrit 25.2 % (42.0-52.0) L Mean Corpuscular Volume 94 FL (80-99) Mean Corpuscular Hemoglobin 31.3 PG (27.0-31.0) H Mean Corpuscular Hemoglobin Concent 33.5 G/DL (32.0-36.0) Red Cell Distribution Width 20.0 % (11.6-14.8) H Platelet Count 93 K/UL (150-450) L Mean Platelet Volume 7.1 FL (6.5-10.1) Neutrophils (%) (Auto) % (45.0-75.0) Lymphocytes (%) (Auto) % (20.0-45.0) Monocytes (%) (Auto) % (1.0-10.0) Eosinophils (%) (Auto) % (0.0-3.0) Basophils (%) (Auto) % (0.0-2.0) Differential Total Cells Counted 100 Neutrophils % (Manual) 88 % (45-75) H Lymphocytes % (Manual) 2 % (20-45) L Monocytes % (Manual) 3 % (1-10) Eosinophils % (Manual) 0 % (0-3) Basophils % (Manual) 0 % (0-2) Band Neutrophils 7 % (0-8) Platelet Estimate Decreased L Platelet Morphology Normal Hypochromasia 1+ Anisocytosis 2+ Sodium Level 142 MMOL/L (136-145) Potassium Level 3.6 MMOL/L (3.5-5.1) Chloride Level 100 MMOL/L (98-107) Carbon Dioxide Level 29 MMOL/L (21-32) Anion Gap 13 mmol/L (5-15) Blood Urea Nitrogen 48 mg/dL (7-18) H Creatinine 2.3 MG/DL (0.55-1.30) H Estimat Glomerular Filtration Rate 34.3 mL/min (>60) Glucose Level 189 MG/DL (74-106) H Calcium Level 8.1 MG/DL (8.5-10.1) L Objective HEAD AND NECK: Positive JVD. LUNGS: Decreased breath sounds especially on right side. CARDIOVASCULAR: Regular S1 and S2 with no gallop. ABDOMEN: Soft. EXTREMITIES: No pitting edema. Quinton Bradley MD Jul 01, 2019 11:22
[2019-07-01] MEDS ORDERED: Digoxin 0.5mg/2ml Inj IVP SCH (11:30)
[2019-07-01 12:00] VITALS: BP 126/71
--- NOTE | 2019-07-01 13:30 | General Progress Note ---
Assessment/Plan Problem List: (1) atrial fib (2) atrial fib (3) atrial fib (4) Paroxysmal atrial fibrillation ICD Codes: I48.0 - Paroxysmal atrial fibrillation SNOMED: 994612582 (5) CHF (congestive heart failure) ICD Codes: I50.9 - Heart failure, unspecified SNOMED: 01108647 (6) Lung cancer ICD Codes: C34.90 - Malignant neoplasm of unspecified part of unspecified bronchus or lung SNOMED: 859696451 (7) Dyspnea ICD Codes: R06.00 - Dyspnea, unspecified SNOMED: 814778209 (8) Pleural effusion ICD Codes: J90 - Pleural effusion, not elsewhere classified SNOMED: 99541239 (9) Supratherapeutic international normalized ratio (INR) ICD Codes: R79.1 - Abnormal coagulation profile SNOMED: 794452103 (10) Epistaxis ICD Codes: R04.0 - Epistaxis SNOMED: 537538060 Assessment/Plan: hold coumadin, steroids, diuresis can stop as rising creat, thoracentesis,only min fluid from loculated effusion transfuse he agrees, PAF rx d/w dr grant Subjective Constitutional: Reports: weakness HEENT: Reports: no symptoms Cardiovascular: Reports: irregular heart rate, palpitations Respiratory: Reports: cough, SOB at rest Gastrointestinal/Abdominal: Reports: no symptoms Genitourinary: Reports: no symptoms Neurologic/Psychiatric: Reports: no symptoms Endocrine: Reports: no symptoms Hematologic/Lymphatic: Reports: anemia Allergies: Coded Allergies: BRITTANI INHIBITORS (Unverified Allergy, Unknown, 03/19/15) Objective Last 24 Hour Vital Signs Date Time Temp Pulse Resp B/P (MAP) Pulse Ox O2 Delivery O2 Flow Rate FiO2 07/01/19 11:38 130 07/01/19 09:00 Nasal Cannula 2.0 07/01/19 08:58 104 110/75 07/01/19 08:56 104 110/75 07/01/19 08:00 98.2 104 20 110/75 (87) 95 07/01/19 07:49 121 07/01/19 04:00 98.1 97 18 109/75 (86) 98 07/01/19 04:00 111 07/01/19 00:00 94 07/01/19 00:00 97.6 100 18 122/77 (92) 96 06/30/19 22:30 98.0 98 20 118/65 (82) 95 06/30/19 20:30 91 120/70 06/30/19 20:00 97.7 95 18 123/70 (87) 95 06/30/19 20:00 Nasal Cannula 2.0 06/30/19 20:00 100 06/30/19 17:28 97.7 06/30/19 16:00 102 06/30/19 16:00 97.7 97 20 114/66 (82) 93 Intake and Output 06/30/19 07/01/19 19:00 07:00 Intake Total 740 ml Output Total 1800 ml 1000 ml Balance -1060 ml -1000 ml Intake Oral 740 ml Output Urine Total 1800 ml 1000 ml Laboratory Tests 07/01/19 05:19: White Blood Count 32.5*H, Red Blood Count 2.69L, Hemoglobin 8.4L, Hematocrit 25.2L, Mean Corpuscular Volume 94, Mean Corpuscular Hemoglobin 31.3H, Mean Corpuscular Hemoglobin Concent 33.5, Red Cell Distribution Width 20.0H, Platelet Count 93L, Mean Platelet Volume 7.1, Neutrophils (%) (Auto) , Lymphocytes (%) (Auto) , Monocytes (%) (Auto) , Eosinophils (%) (Auto) , Basophils (%) (Auto) , Differential Total Cells Counted 100, Neutrophils % ( Manual) 88H, Lymphocytes % (Manual) 2L, Monocytes % (Manual) 3, Eosinophils % ( Manual) 0, Basophils % (Manual) 0, Band Neutrophils 7, Platelet Estimate DecreasedL, Platelet Morphology Normal, Hypochromasia 1+, Anisocytosis 2+, Sodium Level 142, Potassium Level 3.6, Chloride Level 100, Carbon Dioxide Level 29, Anion Gap 13, Blood Urea Nitrogen 48H, Creatinine 2.3H, Estimat Glomerular Filtration Rate 34.3, Glucose Level 189H, Calcium Level 8.1L Height (Feet): 5 Height (Inches): 6.00 Weight (Pounds): 130 General Appearance: alert, mild distress EENT: normal ENT inspection Neck: normal alignment, supple Cardiovascular: regularly irregular, tachycardia Respiratory/Chest: decreased breath sounds Abdomen: non tender Edema: no edema noted Arm (L), no edema noted Arm (R), no edema noted Leg (L), no edema noted Leg (R), no edema noted Pedal (L), no edema noted Pedal (R), no edema noted Generalized Neurologic: shallot cleaner II-XII grossly normal Eagle Rangel MD Jul 01, 2019 13:30
[2019-07-01] MEDS: dilTIAZem HCl 60mg tab ORAL SCH ×2 (14:00→20:50)
[2019-07-01 16:00] VITALS: BP 117/71
--- NOTE | 2019-07-01 19:50 | NUR ---
NURSE NOTES: Received pt from YOCASTA Jeffers. Pt awake, alert, and talkative. Bed in lowest position. Call light within reach. Will continue to monitor.
[2019-07-01 20:00] VITALS: BP 117/72
--- NOTE | 2019-07-01 20:02 | NUR ---
HAND-OFF: Report given to YOCASTA Morris. Pt in stable condition, endorsed plan of care.
--- NOTE | 2019-07-01 20:18 | Hematology/Onc Progress Note ---
Assessment/Plan Assessment/Plan ASSESSMENT AND RECOMMENDATION: 1. Metastatic lung cancer. Getting triple combination chemotherapy, intermittent development of wilver right-sided pleural effusion. The patient has required thoracentesis in the past. Continue to closely monitor the patient's fluid status. --> continue office f/u for chemo --> using picc line for access --> maintain access as is 2. Pulmonary embolism on CT, on anticoagulation on Coumadin. --> inr goal 2-3 --> on coumadin with inr goal 3, on admission was >6 --> FFP and vitk for nose bleed 3. Anemia due to underlying chronic disease. --> ferritin is replete, hold off on iron --> hgb goal >7 --> blood tx: 2 units 06/30 4. Nasal bleeding with Thrombocytopenia, likely due to recently administered chemotherapy. --> closely monitor for improvement --> trend as needed 5. Coagulopathy, likely due to underlying liver disease. --> for nose bleed ffp ordered --> also may need procedure --> keep back of head up 6. Pleural effusion --> likely to get thora --> needs CT surg recs immediately, have dw pcp and CT surgeon Sreekanth --> Dr Bradley aware I appreciate consultation and kevin RN Subjective Allergies: Coded Allergies: BRITTANI INHIBITORS (Unverified Allergy, Unknown, 03/19/15) Subjective 06/30: inr decreased to 1.6, no bleeding or chills, labs noted, less nasal bleeding 07/01: no acute distress, wbc improving, s/p 2 units blood, hgb improved to 8.4 Objective Objective Current Medications Medications (Trade) Dose Ordered Sig/Allen Route PRN Reason Start Time Stop Time Status Last Admin Dose Admin Acetaminophen (Tylenol) 650 mg Q4H PRN ORAL Mild Pain/Temp > 100.5 06/28/19 13:30 07/28/19 13:29 Acetaminophen/ Hydrocodone Bitart ([place] 10/325) 1 tab Q4H PRN ORAL For Pain 06/28/19 14:15 07/05/19 14:14 07/01/19 05:14 Aspirin (Ecotrin) 81 mg DAILY ORAL 06/29/19 09:00 07/29/19 08:59 06/30/19 10:08 Atorvastatin Calcium (Lipitor) 40 mg BEDTIME ORAL 06/28/19 21:00 07/28/19 20:59 06/30/19 20:30 Azithromycin (Zithromax) 250 mg DAILY ORAL 06/29/19 09:00 07/06/19 08:59 07/01/19 08:39 Carvedilol (Coreg) 25 mg EVERY 12 HOURS ORAL 06/28/19 21:00 07/28/19 20:59 06/30/19 20:30 Clonidine HCl (Catapres tab) 0.2 mg DAILYPRN PRN ORAL IF SBP>160 06/28/19 14:30 07/28/19 14:29 Dextrose (Dextrose 50%) 25 ml Q30M PRN IV Hypoglycemia 06/28/19 14:30 07/28/19 14:29 Dextrose (Dextrose 50%) 50 ml Q30M PRN IV Hypoglycemia 06/28/19 14:30 07/28/19 14:29 Digoxin (Lanoxin) 0.125 mg DAILY ORAL 07/02/19 09:00 08/01/19 08:59 Diltiazem HCl (Cardizem) 60 mg EVERY 8 HOURS ORAL 07/01/19 14:00 07/31/19 13:59 07/01/19 14:00 Diphenhydramine HCl (Benadryl) 25 mg DAILYPRN PRN ORAL Itching 06/28/19 14:15 07/28/19 14:14 06/30/19 21:31 Folic Acid (Folate) 1 mg DAILY ORAL 06/29/19 09:00 07/29/19 08:59 07/01/19 08:40 Guaifenesin/ Dextromethorphan (Robitussin DM Syrup) 15 ml Q6H PRN ORAL For Cough 06/29/19 08:00 07/29/19 07:59 07/01/19 08:54 Hydromorphone HCl (Dilaudid) 1.5 mg Q6H PRN IVP MODERATE TO SEVERE PAIN 06/29/19 08:00 07/06/19 07:59 07/01/19 15:41 Insulin Aspart (NovoLOG) BEFORE MEALS SUBQ 06/28/19 16:30 07/28/19 16:29 07/01/19 11:49 Methylprednisolone Sodium Succinate (Solu-MEDROL) 40 mg EVERY 8 HOURS IVP 06/28/19 14:00 07/28/19 13:59 07/01/19 13:59 Nitroglycerin (Ntg) 0.4 mg Q5MIN X 3 DOSES PRN SL CHEST PAIN 06/28/19 14:15 07/28/19 14:14 Pantoprazole (Protonix) 40 mg DAILY ORAL 06/29/19 09:00 07/29/19 08:59 07/01/19 08:39 Piperacillin Sod/ Tazobactam Sod 3.375 gm/Sodium Chloride 110 ml @ 27.5 mls/hr Q8H IVPB 06/28/19 16:00 07/05/19 15:59 07/01/19 15:39 Potassium Chloride (K-Dur) 10 meq DAILY ORAL 06/29/19 09:00 07/29/19 08:59 07/01/19 08:39 Tamsulosin HCl (Flomax) 0.4 mg BEDTIME ORAL 06/28/19 21:00 07/28/19 20:59 06/30/19 20:29 Vitamin D (Vitamin D) 1,000 intlu DAILY ORAL 06/29/19 09:00 07/29/19 08:59 07/01/19 08:40 Last 24 Hour Vital Signs Date Time Temp Pulse Resp B/P (MAP) Pulse Ox O2 Delivery O2 Flow Rate FiO2 07/01/19 16:11 98.1 07/01/19 16:00 98.1 92 20 117/71 (86) 100 07/01/19 15:45 97 07/01/19 14:00 130 126/71 07/01/19 12:00 98.2 130 20 126/71 (89) 92 07/01/19 11:48 145 07/01/19 11:38 130 07/01/19 09:00 Nasal Cannula 2.0 07/01/19 08:58 104 110/75 07/01/19 08:56 104 110/75 07/01/19 08:00 98.2 104 20 110/75 (87) 95 07/01/19 07:49 121 07/01/19 04:00 98.1 97 18 109/75 (86) 98 07/01/19 04:00 111 07/01/19 00:00 94 07/01/19 00:00 97.6 100 18 122/77 (92) 96 06/30/19 22:30 98.0 98 20 118/65 (82) 95 06/30/19 20:30 91 120/70 06/30/19 20:00 97.7 95 18 123/70 (87) 95 06/30/19 20:00 Nasal Cannula 2.0 06/30/19 20:00 100 06/30/19 16:00 102 06/30/19 16:00 97.7 97 20 114/66 (82) 93 06/30/19 12:00 114 06/30/19 12:00 97.7 101 20 102/62 (75) 92 06/30/19 10:08 113 119/67 06/30/19 10:07 113 119/67 06/30/19 09:00 Nasal Cannula 2.0 06/30/19 08:00 98.1 94 20 119/67 (84) 93 06/30/19 08:00 113 06/30/19 04:00 117 06/30/19 04:00 97.9 92 18 112/70 (84) 93 06/30/19 00:00 97.9 89 18 113/70 (84) 97 06/30/19 00:00 93 06/29/19 21:00 Nasal Cannula 2.0 06/29/19 21:00 87 103/64 Intake and Output 06/30/19 07/01/19 19:00 07:00 Intake Total 740 ml Output Total 1800 ml 1000 ml Balance -1060 ml -1000 ml Intake Oral 740 ml Output Urine Total 1800 ml 1000 ml Labs Test 06/29/19 07:16 06/29/19 10:45 06/30/19 06:25 07/01/19 05:19 Prothrombin Time 36.2 SEC (9.30-11.50) 29.6 SEC (9.30-11.50) 16.2 SEC (9.30-11.50) Prothromb Time International Ratio 3.6 (0.9-1.1) 2.9 (0.9-1.1) 1.6 (0.9-1.1) Sodium Level 141 MMOL/L (136-145) 141 MMOL/L (136-145) 142 MMOL/L (136-145) Potassium Level 4.2 MMOL/L (3.5-5.1) 3.8 MMOL/L (3.5-5.1) 3.6 MMOL/L (3.5-5.1) Chloride Level 103 MMOL/L (98-107) 101 MMOL/L (98-107) 100 MMOL/L (98-107) Carbon Dioxide Level 27 MMOL/L (21-32) 30 MMOL/L (21-32) 29 MMOL/L (21-32) Anion Gap 11 mmol/L (5-15) 10 mmol/L (5-15) 13 mmol/L (5-15) Blood Urea Nitrogen 31 mg/dL (7-18) 39 mg/dL (7-18) 48 mg/dL (7-18) Creatinine 1.9 MG/DL (0.55-1.30) 2.2 MG/DL (0.55-1.30) 2.3 MG/DL (0.55-1.30) Estimat Glomerular Filtration Rate 42.8 mL/min (>60) 36.1 mL/min (>60) 34.3 mL/min (>60) Glucose Level 169 MG/DL (74-106) 154 MG/DL (74-106) 189 MG/DL (74-106) Calcium Level 8.9 MG/DL (8.5-10.1) 8.8 MG/DL (8.5-10.1) 8.1 MG/DL (8.5-10.1) Carcinoembryonic Antigen 5.3 ng/mL (0.0-4.7) White Blood Count 40.3 K/UL (4.8-10.8) 32.5 K/UL (4.8-10.8) Red Blood Count 2.26 M/UL (4.70-6.10) 2.69 M/UL (4.70-6.10) Hemoglobin 7.0 G/DL (14.2-18.0) 8.4 G/DL (14.2-18.0) Hematocrit 21.8 % (42.0-52.0) 25.2 % (42.0-52.0) Mean Corpuscular Volume 96 FL (80-99) 94 FL (80-99) Mean Corpuscular Hemoglobin 30.9 PG (27.0-31.0) 31.3 PG (27.0-31.0) Mean Corpuscular Hemoglobin Concent 32.1 G/DL (32.0-36.0) 33.5 G/DL (32.0-36.0) Red Cell Distribution Width 20.8 % (11.6-14.8) 20.0 % (11.6-14.8) Platelet Count 98 K/UL (150-450) 93 K/UL (150-450) Mean Platelet Volume 8.1 FL (6.5-10.1) 7.1 FL (6.5-10.1) Neutrophils (%) (Auto) % (45.0-75.0) % (45.0-75.0) Lymphocytes (%) (Auto) % (20.0-45.0) % (20.0-45.0) Monocytes (%) (Auto) % (1.0-10.0) % (1.0-10.0) Eosinophils (%) (Auto) % (0.0-3.0) % (0.0-3.0) Basophils (%) (Auto) % (0.0-2.0) % (0.0-2.0) Differential Total Cells Counted 100 100 Neutrophils % (Manual) 95 % (45-75) 88 % (45-75) Lymphocytes % (Manual) 3 % (20-45) 2 % (20-45) Monocytes % (Manual) 2 % (1-10) 3 % (1-10) Eosinophils % (Manual) 0 % (0-3) 0 % (0-3) Basophils % (Manual) 0 % (0-2) 0 % (0-2) Band Neutrophils 0 % (0-8) 7 % (0-8) Platelet Estimate Decreased Decreased Platelet Morphology Normal Normal Hypochromasia 3+ 1+ Anisocytosis 2+ 2+ Troponin I 0.000 ng/mL (0.000-0.056) Height (Feet): 5 Height (Inches): 6.00 Weight (Pounds): 130 Objective GENERAL: No acute distress. NECK: supple LUNGS: Decreased breath sounds. CARDIOVASCULAR: Regular rate. No S3 or S4. ABDOMEN: Soft, nontender, and nondistended. EXTREMITIES: 1+ edema. Anurag Salguero MD Jul 01, 2019 20:18
[2019-07-01] MEDS: Atorvastatin 20mg tab ORAL SCH (20:51)
[2019-07-01] MEDS: Tamsulosin 0.4mg cap ORAL SCH (20:51)
[2019-07-02] MEDS: Piperacillin/Tazobactam 3.375 GM in NS 110 ML IVPB SCH ×2 (01:07→08:52)
[2019-07-02 04:00] VITALS: BP 140/76
[2019-07-02] MEDS: dilTIAZem HCl 60mg tab ORAL SCH ×3 (06:01→21:31)
[2019-07-02] MEDS: Solu-MEDROL 40mg Inj IVP SCH (06:01)
[2019-07-02] MEDS: NovoLOG Insulin Flexpen SUBQ SCH ×3 (06:05→17:14)
--- NOTE | 2019-07-02 06:49 | NUR ---
FoundValue Downtime: On 07/02/2019 From 0000 to 0600, The following electronic documentation will be located in the patient handwritten chart, - medication administration for cough syrup 15 ml Following patient discharge, paper documentation will be scanned into EPF with the remainder of the paper chart. Nursing Documentation Physician orders Medication Administration Records Medication Reconciliation Respiratory Documentation Dietary Documentation Case Management Documentation [employer] Law Clerk Documentation
--- NOTE | 2019-07-02 07:30 | NUR ---
NURSE NOTES: Received report from YOCASTA Morris. Pt A/O x4, denies any pain. Pt on 2L NC, no s/sx of acute distress. IV site on R FA 22g patent and asymptomatic. Bed on lowest position, call light within reach. Will continue plan of care.
--- NOTE | 2019-07-02 07:38 | NUR ---
HAND-OFF: Report given to YOCASTA Jeffers. pt stable.
[2019-07-02 07:50] LABS: HEMATOCRIT 28.2 % (42.0-52.0); HEMOGLOBIN 9.6 G/DL (14.2-18.0); MEAN CORPUSCULAR VOLUME 95 FL (80-99); PLATELET COUNT 127 K/UL (150-450); RED BLOOD COUNT 2.98 M/UL (4.70-6.10); RED CELL DISTRIBUTION WIDTH 20.2 % (11.6-14.8)
[2019-07-02 08:00] VITALS: BP 120/65
[2019-07-02 08:11] LABS: ANION GAP 16 mmol/L (5-15); BLOOD UREA NITROGEN 42 mg/dL (7-18); CALCIUM 8.3 MG/DL (8.5-10.1); CARBON DIOXIDE 28 MMOL/L (21-32); CHLORIDE 101 MMOL/L (98-107); CREATININE 1.8 MG/DL (0.55-1.30); POTASSIUM 3.6 MMOL/L (3.5-5.1); SODIUM 145 MMOL/L (136-145)
[2019-07-02 08:17] LABS: WHITE BLOOD COUNT 29.5 K/UL (4.8-10.8)
[2019-07-02] MEDS: Azithromycin 250mg tab ORAL SCH (09:03)
[2019-07-02] MEDS: Vitamin D 1000 IU Tab ORAL SCH (09:03)
[2019-07-02] MEDS: Digoxin 0.125mg tab ORAL SCH (09:04)
[2019-07-02] MEDS: Aspirin EC 81mg tab ORAL SCH (09:05)
[2019-07-02] MEDS: Carvedilol 25mg Tab ORAL SCH ×2 (09:07→21:32)
--- NOTE | 2019-07-02 09:19 | Pulmonology Progress Note ---
Assessment/Plan Assessment/Plan IMPRESSION: 1. Massive pleural effusion. Unclear if the patient has hemothorax vs malignant 2. Hypercoagulable state, now coagulopathy. 3. Small-cell cancer. 4. COPD. 5. CHF. 6. leukocytosis 7. SOB PLAN recommend VATS for decortication and pleurodesis but refuses dc planning resume coumadin and dc home onc and ID follow up care noted and reviewed prognosis guarded impression, plan, and exam edited and reviewed in detail care discussed with RN Subjective Allergies: Coded Allergies: BRITTANI INHIBITORS (Unverified Allergy, Unknown, 03/19/15) Subjective d/w thoracic d/w radiology loculated effusion patient does not want surgery or intervention Objective Last 24 Hour Vital Signs Date Time Temp Pulse Resp B/P (MAP) Pulse Ox O2 Delivery O2 Flow Rate FiO2 07/02/19 09:07 86 120/65 07/02/19 09:04 86 07/02/19 08:00 98.1 86 20 120/65 (83) 95 07/02/19 06:01 85 140/76 07/02/19 04:00 75 07/02/19 04:00 85 140/76 (97) 07/02/19 00:00 75 07/01/19 21:00 Nasal Cannula 2.0 07/01/19 20:50 84 117/72 07/01/19 20:50 84 117/72 07/01/19 20:00 97.9 84 16 117/72 (87) 95 07/01/19 20:00 89 07/01/19 16:11 98.1 07/01/19 16:00 98.1 92 20 117/71 (86) 100 07/01/19 15:45 97 07/01/19 14:00 130 126/71 07/01/19 12:00 98.2 130 20 126/71 (89) 92 07/01/19 11:48 145 07/01/19 11:38 130 Intake and Output 07/01/19 07/02/19 19:00 07:00 Intake Total 460 ml Output Total 600 ml Balance -140 ml Intake Oral 460 ml Output Urine Total 600 ml # Voids 3 2 Objective GENERAL: A well-developed male, comfortable at present. NAD HEENT: Negative. NECK: Supple. The patient has no jugular venous distention. LUNGS: With significantly reduced breath sounds of the right lung, otherwise fairly clear. CARDIAC: RRR without MRG ABDOMEN: Overall soft, nontender. EXTREMITIES: No cyanosis or clubbing. Mild edema. NEUROLOGIC: Nonfocal. reviewed and edited Laboratory Tests 07/02/19 07:00: White Blood Count 29.5*H, Red Blood Count 2.98L, Hemoglobin 9.6L, Hematocrit 28.2L, Mean Corpuscular Volume 95, Mean Corpuscular Hemoglobin 32.2H, Mean Corpuscular Hemoglobin Concent 34.0, Red Cell Distribution Width 20.2H, Platelet Count 127L, Mean Platelet Volume 8.3, Neutrophils (%) (Auto) , Lymphocytes (%) (Auto) , Monocytes (%) (Auto) , Eosinophils (%) (Auto) , Basophils (%) (Auto) , Neutrophils % (Manual) [Pending], Lymphocytes % (Manual) [Pending], Platelet Estimate [Pending], Platelet Morphology [Pending], Sodium Level 145, Potassium Level 3.6, Chloride Level 101, Carbon Dioxide Level 28, Anion Gap 16H, Blood Urea Nitrogen 42H, Creatinine 1.8H, Estimat Glomerular Filtration Rate 45.6, Glucose Level 160H, Calcium Level 8.3L, Digoxin Level 0.5 Current Medications Medications (Trade) Dose Ordered Sig/Allen Route PRN Reason Start Time Stop Time Status Last Admin Dose Admin Acetaminophen (Tylenol) 650 mg Q4H PRN ORAL Mild Pain/Temp > 100.5 06/28/19 13:30 07/28/19 13:29 Acetaminophen/ Hydrocodone Bitart ([place] 10/325) 1 tab Q4H PRN ORAL For Pain 06/28/19 14:15 07/05/19 14:14 07/01/19 05:14 Aspirin (Ecotrin) 81 mg DAILY ORAL 06/29/19 09:00 07/29/19 08:59 07/02/19 09:05 Atorvastatin Calcium (Lipitor) 40 mg BEDTIME ORAL 06/28/19 21:00 07/28/19 20:59 07/01/19 20:51 Azithromycin (Zithromax) 250 mg DAILY ORAL 06/29/19 09:00 07/06/19 08:59 07/02/19 09:03 Carvedilol (Coreg) 25 mg EVERY 12 HOURS ORAL 06/28/19 21:00 07/28/19 20:59 07/02/19 09:07 Clonidine HCl (Catapres tab) 0.2 mg DAILYPRN PRN ORAL IF SBP>160 06/28/19 14:30 07/28/19 14:29 Dextrose (Dextrose 50%) 25 ml Q30M PRN IV Hypoglycemia 06/28/19 14:30 07/28/19 14:29 Dextrose (Dextrose 50%) 50 ml Q30M PRN IV Hypoglycemia 06/28/19 14:30 07/28/19 14:29 Digoxin (Lanoxin) 0.125 mg DAILY ORAL 07/02/19 09:00 08/01/19 08:59 07/02/19 09:04 Diltiazem HCl (Cardizem) 60 mg EVERY 8 HOURS ORAL 07/01/19 14:00 07/31/19 13:59 07/02/19 06:01 Diphenhydramine HCl (Benadryl) 25 mg DAILYPRN PRN ORAL Itching 06/28/19 14:15 07/28/19 14:14 06/30/19 21:31 Folic Acid (Folate) 1 mg DAILY ORAL 06/29/19 09:00 07/29/19 08:59 07/02/19 09:05 Guaifenesin/ Dextromethorphan (Robitussin DM Syrup) 15 ml Q6H PRN ORAL For Cough 06/29/19 08:00 07/29/19 07:59 07/01/19 08:54 Hydromorphone HCl (Dilaudid) 1.5 mg Q6H PRN IVP MODERATE TO SEVERE PAIN 06/29/19 08:00 07/06/19 07:59 07/02/19 07:11 Insulin Aspart (NovoLOG) BEFORE MEALS SUBQ 06/28/19 16:30 07/28/19 16:29 07/02/19 06:05 Methylprednisolone Sodium Succinate (Solu-MEDROL) 40 mg EVERY 8 HOURS IVP 06/28/19 14:00 07/28/19 13:59 07/02/19 06:01 Nitroglycerin (Ntg) 0.4 mg Q5MIN X 3 DOSES PRN SL CHEST PAIN 06/28/19 14:15 07/28/19 14:14 Pantoprazole (Protonix) 40 mg DAILY ORAL 06/29/19 09:00 07/29/19 08:59 07/02/19 09:03 Piperacillin Sod/ Tazobactam Sod 3.375 gm/Sodium Chloride 110 ml @ 27.5 mls/hr Q8H IVPB 06/28/19 16:00 07/05/19 15:59 07/02/19 08:52 Potassium Chloride (K-Dur) 10 meq DAILY ORAL 06/29/19 09:00 07/29/19 08:59 07/02/19 09:03 Tamsulosin HCl (Flomax) 0.4 mg BEDTIME ORAL 06/28/19 21:00 07/28/19 20:59 07/01/19 20:51 Vitamin D (Vitamin D) 1,000 intlu DAILY ORAL 06/29/19 09:00 07/29/19 08:59 07/02/19 09:03 Albino Otero MD Jul 02, 2019 09:19
--- NOTE | 2019-07-02 09:35 | Cardiac Electrophysiology PN ---
Assessment/Plan Assessment/Plan 1. Massive Right pleural effusion. The patient received vitamin K as INR was 6.4. S/P right-sided thoracentesis 06/30/19 of only 10cc. Needs VATS/ pleurodesis but is at high risk. 2. 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 3. Paroxysmal atrial fibrillation with RVR 150s on 07/01/19 despite Coreg 25 mg b.i.d. and coumadin Changed Norvasc to Cardizem 60 tid and gave 0.5 iv Digoxin. Dig level today 0.5 Cancelled ICU transfer 4. Hypertension, on Coreg 25 b.i.d., Lasix 40 mg IV every 8 hours, and Cardizem 60 tid 5. Elevated white count, likely due to underlying pneumonia, on IV antibiotic. 6. Metastatic non-small cell lung cancer. Further evaluation by Dr. Salguero. 7. SVC obstruction DW RN and Dr Martinez Subjective Subjective Has Massive Right pleural effusion but Thoracentesis but only 10 cc removed as it is loculated. Needs VATS/Pleurodesis but high risk procedure for him. Developed atrial flutter with RVR 150s yesterday but converted after iv Dig and changing Norvasc to Cardizem Objective Last 24 Hour Vital Signs Date Time Temp Pulse Resp B/P (MAP) Pulse Ox O2 Delivery O2 Flow Rate FiO2 07/02/19 09:07 86 120/65 07/02/19 09:04 86 07/02/19 08:00 98.1 86 20 120/65 (83) 95 07/02/19 06:01 85 140/76 07/02/19 04:00 75 07/02/19 04:00 85 140/76 (97) 07/02/19 00:00 75 07/01/19 21:00 Nasal Cannula 2.0 07/01/19 20:50 84 117/72 07/01/19 20:50 84 117/72 07/01/19 20:00 97.9 84 16 117/72 (87) 95 07/01/19 20:00 89 07/01/19 16:11 98.1 07/01/19 16:00 98.1 92 20 117/71 (86) 100 07/01/19 15:45 97 07/01/19 14:00 130 126/71 07/01/19 12:00 98.2 130 20 126/71 (89) 92 07/01/19 11:48 145 07/01/19 11:38 130 Intake and Output 07/01/19 07/02/19 19:00 07:00 Intake Total 460 ml Output Total 600 ml Balance -140 ml Intake Oral 460 ml Output Urine Total 600 ml # Voids 3 2 Laboratory Tests Test 07/02/19 07:00 White Blood Count 29.5 K/UL (4.8-10.8) *H Red Blood Count 2.98 M/UL (4.70-6.10) L Hemoglobin 9.6 G/DL (14.2-18.0) L Hematocrit 28.2 % (42.0-52.0) L Mean Corpuscular Volume 95 FL (80-99) Mean Corpuscular Hemoglobin 32.2 PG (27.0-31.0) H Mean Corpuscular Hemoglobin Concent 34.0 G/DL (32.0-36.0) Red Cell Distribution Width 20.2 % (11.6-14.8) H Platelet Count 127 K/UL (150-450) L Mean Platelet Volume 8.3 FL (6.5-10.1) Neutrophils (%) (Auto) % (45.0-75.0) Lymphocytes (%) (Auto) % (20.0-45.0) Monocytes (%) (Auto) % (1.0-10.0) Eosinophils (%) (Auto) % (0.0-3.0) Basophils (%) (Auto) % (0.0-2.0) Neutrophils % (Manual) Pending Lymphocytes % (Manual) Pending Platelet Estimate Pending Platelet Morphology Pending Sodium Level 145 MMOL/L (136-145) Potassium Level 3.6 MMOL/L (3.5-5.1) Chloride Level 101 MMOL/L (98-107) Carbon Dioxide Level 28 MMOL/L (21-32) Anion Gap 16 mmol/L (5-15) H Blood Urea Nitrogen 42 mg/dL (7-18) H Creatinine 1.8 MG/DL (0.55-1.30) H Estimat Glomerular Filtration Rate 45.6 mL/min (>60) Glucose Level 160 MG/DL (74-106) H Calcium Level 8.3 MG/DL (8.5-10.1) L Digoxin Level 0.5 NG/ML (0.5-2.0) Objective HEAD AND NECK: Positive JVD. LUNGS: Decreased breath sounds especially on right side. CARDIOVASCULAR: Regular S1 and S2 with no gallop. ABDOMEN: Soft. EXTREMITIES: No pitting edema. Quinton Bradley MD Jul 02, 2019 09:35
[2019-07-02 12:00] VITALS: BP 107/57
--- NOTE | 2019-07-02 12:34 | General Progress Note ---
Assessment/Plan Problem List: (1) atrial fib (2) atrial fib (3) atrial fib (4) Paroxysmal atrial fibrillation ICD Codes: I48.0 - Paroxysmal atrial fibrillation SNOMED: 558353003 (5) CHF (congestive heart failure) ICD Codes: I50.9 - Heart failure, unspecified SNOMED: 59553543 (6) Lung cancer ICD Codes: C34.90 - Malignant neoplasm of unspecified part of unspecified bronchus or lung SNOMED: 248517379 (7) Dyspnea ICD Codes: R06.00 - Dyspnea, unspecified SNOMED: 716325693 (8) Pleural effusion ICD Codes: J90 - Pleural effusion, not elsewhere classified SNOMED: 43727359 (9) Supratherapeutic international normalized ratio (INR) ICD Codes: R79.1 - Abnormal coagulation profile SNOMED: 173201909 (10) Epistaxis ICD Codes: R04.0 - Epistaxis SNOMED: 593054617 Assessment/Plan: resume coumadin,taper steroids, diuresis can stop as rising creat, thoracentesis,only min fluid from loculated effusion transfuse he agrees, PAF rx d/w dr grant, now nsr Subjective Constitutional: Reports: weakness HEENT: Reports: no symptoms Cardiovascular: Reports: no symptoms Respiratory: Reports: cough, shortness of breath Gastrointestinal/Abdominal: Reports: no symptoms Genitourinary: Reports: no symptoms Neurologic/Psychiatric: Reports: no symptoms Endocrine: Reports: no symptoms Allergies: Coded Allergies: BRITTANI INHIBITORS (Unverified Allergy, Unknown, 03/19/15) Objective Last 24 Hour Vital Signs Date Time Temp Pulse Resp B/P (MAP) Pulse Ox O2 Delivery O2 Flow Rate FiO2 07/02/19 09:07 86 120/65 07/02/19 09:04 86 07/02/19 09:00 Nasal Cannula 2.0 07/02/19 08:00 98.1 86 20 120/65 (83) 95 07/02/19 07:57 94 07/02/19 06:01 85 140/76 07/02/19 04:00 75 07/02/19 04:00 85 140/76 (97) 07/02/19 00:00 75 07/01/19 21:00 Nasal Cannula 2.0 07/01/19 20:50 84 117/72 07/01/19 20:50 84 117/72 07/01/19 20:00 97.9 84 16 117/72 (87) 95 07/01/19 20:00 89 07/01/19 16:11 98.1 07/01/19 16:00 98.1 92 20 117/71 (86) 100 07/01/19 15:45 97 07/01/19 14:00 130 126/71 Intake and Output 07/01/19 07/02/19 19:00 07:00 Intake Total 460 ml Output Total 600 ml Balance -140 ml Intake Oral 460 ml Output Urine Total 600 ml # Voids 3 2 Laboratory Tests 07/02/19 07:00: White Blood Count 29.5*H, Red Blood Count 2.98L, Hemoglobin 9.6L, Hematocrit 28.2L, Mean Corpuscular Volume 95, Mean Corpuscular Hemoglobin 32.2H, Mean Corpuscular Hemoglobin Concent 34.0, Red Cell Distribution Width 20.2H, Platelet Count 127L, Mean Platelet Volume 8.3, Neutrophils (%) (Auto) , Lymphocytes (%) (Auto) , Monocytes (%) (Auto) , Eosinophils (%) (Auto) , Basophils (%) (Auto) , Differential Total Cells Counted 100, Neutrophils % ( Manual) 95H, Lymphocytes % (Manual) 3L, Monocytes % (Manual) 2, Eosinophils % ( Manual) 0, Basophils % (Manual) 0, Band Neutrophils 0, Platelet Estimate DecreasedL, Platelet Morphology Normal, Hypochromasia 2+, Anisocytosis 2+, Spherocytes 1+, Sodium Level 145, Potassium Level 3.6, Chloride Level 101, Carbon Dioxide Level 28, Anion Gap 16H, Blood Urea Nitrogen 42H, Creatinine 1.8H , Estimat Glomerular Filtration Rate 45.6, Glucose Level 160H, Calcium Level 8.3L, Digoxin Level 0.5 Height (Feet): 5 Height (Inches): 6.00 Weight (Pounds): 130 General Appearance: alert, mild distress EENT: normal ENT inspection Neck: normal alignment Cardiovascular: regular rhythm Respiratory/Chest: decreased breath sounds Abdomen: non tender Edema: no edema noted Arm (L), no edema noted Arm (R), no edema noted Leg (L), no edema noted Leg (R), no edema noted Pedal (L), no edema noted Pedal (R), no edema noted Generalized Lang,Eagle MD Jul 02, 2019 12:34
[2019-07-02] MEDS: Guaifenesin/DM 10ml syrup ORAL PRN ×2 (14:11→21:43)
[2019-07-02 16:00] VITALS: BP 127/76
[2019-07-02] MEDS ORDERED: Warfarin Sodium 5mg ORAL ONE (17:00)
--- NOTE | 2019-07-02 19:51 | NUR ---
HAND-OFF: Report given to YOCASTA Adam. Pt in stable condition. Endorsed plan of care.
[2019-07-02 21:00] VITALS: BP 129/73
--- NOTE | 2019-07-02 21:00 | NUR ---
NURSE NOTES: patient had an episode of [address] Bradley made aware. Will continue to monitor and reassess
[2019-07-02 21:27] VITALS: BP 135/76
[2019-07-02] MEDS: Atorvastatin 20mg tab ORAL SCH (21:31)
[2019-07-02] MEDS: Tamsulosin 0.4mg cap ORAL SCH (21:32)
[2019-07-03] VITALS (7 sets, daily range): BP systolic 116–163; BP diastolic 61–86
[2019-07-03] MEDS: Guaifenesin/DM 10ml syrup ORAL PRN ×3 (05:29→20:41)
[2019-07-03] MEDS: dilTIAZem HCl 60mg tab ORAL SCH ×3 (05:30→22:06)
[2019-07-03] MEDS: NovoLOG Insulin Flexpen SUBQ SCH ×3 (06:30→16:30)
--- NOTE | 2019-07-03 07:24 | NUR ---
HAND-OFF: Report given to YOCASTA Cordero,patient in stable condition, plan of care endorsed.
--- NOTE | 2019-07-03 07:30 | NUR ---
NURSE NOTES: Received pt from GO RN, Pt is awake and alert, pt has NC 2LMP Pt has intact iv access RFA 22G SL. Dr MUSA is aware about WBC 28 and other lab results and V/S, no new order, pt is eating breakfast by observation. Pt is on continues heart monitoring. all needs attended, bed is locked and is in the lowest position, call light within easy reach. will continue to monitor.
[2019-07-03 07:54] LABS: HEMOGLOBIN 9.6 G/DL (14.2-18.0); MEAN CORPUSCULAR VOLUME 97 FL (80-99); PLATELET COUNT 126 K/UL (150-450); RED CELL DISTRIBUTION WIDTH 21.5 % (11.6-14.8)
[2019-07-03 08:00] LABS: INR 1.4 (0.9-1.1)
[2019-07-03 08:10] LABS: ANION GAP 12 mmol/L (5-15); BLOOD UREA NITROGEN 37 mg/dL (7-18); CALCIUM 8.8 MG/DL (8.5-10.1); CARBON DIOXIDE 29 MMOL/L (21-32); CHLORIDE 104 MMOL/L (98-107); CREATININE 1.7 MG/DL (0.55-1.30); POTASSIUM 3.9 MMOL/L (3.5-5.1); SODIUM 144 MMOL/L (136-145)
[2019-07-03] MEDS: Carvedilol 25mg Tab ORAL SCH ×2 (09:43→20:40)
[2019-07-03] MEDS: Aspirin EC 81mg tab ORAL SCH (09:43)
[2019-07-03] MEDS: Azithromycin 250mg tab ORAL SCH (09:43)
[2019-07-03] MEDS: Vitamin D 1000 IU Tab ORAL SCH (09:44)
[2019-07-03] MEDS: Digoxin 0.125mg tab ORAL SCH (09:44)
[2019-07-03] MEDS: Solu-MEDROL 40mg Inj IVP SCH (09:44)
--- NOTE | 2019-07-03 10:03 | Cardiac Electrophysiology PN ---
Assessment/Plan Assessment/Plan 1. Massive Right pleural effusion. The patient received vitamin K as INR was 6.4. S/P multiple right-sided thoracentesis 06/30/19 of only 10cc. High risk for VATS/ pleurodesis and he refused anyways 2. 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 3. Paroxysmal atrial fibrillation with RVR 150s on 07/01/19 despite Coreg 25 mg b.i.d. and coumadin Now on Cardizem 60 tid and Dig 0.125 daily 4. Hypertension, on Coreg 25 b.i.d., Lasix 40 mg IV every 8 hours, and Cardizem 60 tid 5. Nonsustained VT. Medical therapy. Not stable for stress test. K and MG are OK 6. CAD with prior LAD and Diagonal stents that were patent 7. Metastatic non-small cell lung cancer. Further evaluation by Dr. Salguero. 8. 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 Elevated white count, likely due to underlying pneumonia, on IV antibiotic. RICK RN and Dr. Otero Subjective Subjective Had 10 beats of nonsustained VT yesterday Developed atrial flutter with RVR 150s 07/01/19 but converted after iv Dig and changing Norvasc to Cardizem Now in SR in 70s Objective Last 24 Hour Vital Signs Date Time Temp Pulse Resp B/P (MAP) Pulse Ox O2 Delivery O2 Flow Rate FiO2 07/03/19 09:44 75 07/03/19 09:43 75 138/78 07/03/19 08:00 97.2 75 20 138/78 (98) 92 07/03/19 05:30 73 121/68 07/03/19 04:00 96.6 73 18 121/68 (85) 71 07/03/19 04:00 71 07/03/19 00:00 66 07/03/19 00:00 96.8 82 18 116/71 (86) 71 07/02/19 21:32 81 135/76 07/02/19 21:31 81 135/76 07/02/19 21:27 81 135/76 (95) 07/02/19 21:00 Nasal Cannula 2.0 07/02/19 21:00 97.7 82 18 129/73 (91) 92 07/02/19 20:00 92 07/02/19 16:22 73 07/02/19 16:00 97.2 79 20 127/76 (93) 92 07/02/19 14:02 68 107/57 07/02/19 12:00 97.3 68 20 107/57 (74) 100 07/02/19 11:51 67 Intake and Output 07/02/19 07/03/19 19:00 07:00 Intake Total 980 ml Balance 980 ml Intake Oral 980 ml # Voids 4 2 Laboratory Tests Test 07/03/19 07:00 White Blood Count 28.0 K/UL (4.8-10.8) *H Red Blood Count 3.00 M/UL (4.70-6.10) L Hemoglobin 9.6 G/DL (14.2-18.0) L Hematocrit 29.0 % (42.0-52.0) L Mean Corpuscular Volume 97 FL (80-99) Mean Corpuscular Hemoglobin 32.2 PG (27.0-31.0) H Mean Corpuscular Hemoglobin Concent 33.2 G/DL (32.0-36.0) Red Cell Distribution Width 21.5 % (11.6-14.8) H Platelet Count 126 K/UL (150-450) L Mean Platelet Volume 7.9 FL (6.5-10.1) Neutrophils (%) (Auto) % (45.0-75.0) Lymphocytes (%) (Auto) % (20.0-45.0) Monocytes (%) (Auto) % (1.0-10.0) Eosinophils (%) (Auto) % (0.0-3.0) Basophils (%) (Auto) % (0.0-2.0) Neutrophils % (Manual) Pending Lymphocytes % (Manual) Pending Platelet Estimate Pending Platelet Morphology Pending Prothrombin Time 14.5 SEC (9.30-11.50) H Prothromb Time International Ratio 1.4 (0.9-1.1) H Sodium Level 144 MMOL/L (136-145) Potassium Level 3.9 MMOL/L (3.5-5.1) Chloride Level 104 MMOL/L (98-107) Carbon Dioxide Level 29 MMOL/L (21-32) Anion Gap 12 mmol/L (5-15) Blood Urea Nitrogen 37 mg/dL (7-18) H Creatinine 1.7 MG/DL (0.55-1.30) H Estimat Glomerular Filtration Rate 48.7 mL/min (>60) Glucose Level 124 MG/DL (74-106) H Calcium Level 8.8 MG/DL (8.5-10.1) Magnesium Level 1.9 MG/DL (1.8-2.4) Objective HEAD AND NECK: Positive JVD. LUNGS: Decreased breath sounds especially on right side. Distended chest veins CARDIOVASCULAR: Regular S1 and S2 with no gallop. ABDOMEN: Soft. EXTREMITIES: No pitting edema. Quinton Bradley MD Jul 03, 2019 10:03
--- NOTE | 2019-07-03 10:52 | Pulmonology Progress Note ---
Assessment/Plan Assessment/Plan IMPRESSION: 1. Massive pleural effusion. Unclear if the patient has hemothorax vs malignant 2. Hypercoagulable state, now coagulopathy. 3. Small-cell cancer. 4. COPD. 5. CHF. 6. leukocytosis 7. SOB 8. SVT PLAN cardiology clearance dc planning resume coumadin and dc home onc and ID follow up care noted and reviewed prognosis guarded with noted findings oxygen impression, plan, and exam edited and reviewed in detail care discussed with RN Subjective Allergies: Coded Allergies: BRITTANI INHIBITORS (Unverified Allergy, Unknown, 03/19/15) Subjective went into SVT cardiology noted loculated effusion patient does not want surgery or intervention Objective Last 24 Hour Vital Signs Date Time Temp Pulse Resp B/P (MAP) Pulse Ox O2 Delivery O2 Flow Rate FiO2 07/03/19 09:44 75 07/03/19 09:43 75 138/78 07/03/19 08:00 97.2 75 20 138/78 (98) 92 07/03/19 07:47 82 07/03/19 05:30 73 121/68 07/03/19 04:00 96.6 73 18 121/68 (85) 71 07/03/19 04:00 71 07/03/19 00:00 66 07/03/19 00:00 96.8 82 18 116/71 (86) 71 07/02/19 21:32 81 135/76 07/02/19 21:31 81 135/76 07/02/19 21:27 81 135/76 (95) 07/02/19 21:00 Nasal Cannula 2.0 07/02/19 21:00 97.7 82 18 129/73 (91) 92 07/02/19 20:00 92 07/02/19 16:22 73 07/02/19 16:00 97.2 79 20 127/76 (93) 92 07/02/19 14:02 68 107/57 07/02/19 12:00 97.3 68 20 107/57 (74) 100 07/02/19 11:51 67 Intake and Output 07/02/19 07/03/19 19:00 07:00 Intake Total 980 ml Balance 980 ml Intake Oral 980 ml # Voids 4 2 Objective GENERAL: A well-developed male, comfortable at present. NAD HEENT: Negative. NECK: Supple. The patient has no jugular venous distention. LUNGS: With significantly reduced breath sounds of the right lung, otherwise fairly clear. CARDIAC: RRR without MRG ABDOMEN: Overall soft, nontender. EXTREMITIES: No cyanosis or clubbing. Mild edema. NEUROLOGIC: Nonfocal. reviewed and edited Laboratory Tests 07/03/19 07:00: White Blood Count 28.0*H, Red Blood Count 3.00L, Hemoglobin 9.6L, Hematocrit 29.0L, Mean Corpuscular Volume 97, Mean Corpuscular Hemoglobin 32.2H, Mean Corpuscular Hemoglobin Concent 33.2, Red Cell Distribution Width 21.5H, Platelet Count 126L, Mean Platelet Volume 7.9, Neutrophils (%) (Auto) , Lymphocytes (%) (Auto) , Monocytes (%) (Auto) , Eosinophils (%) (Auto) , Basophils (%) (Auto) , Differential Total Cells Counted 100, Neutrophils % ( Manual) 92H, Lymphocytes % (Manual) 5L, Monocytes % (Manual) 3, Eosinophils % ( Manual) 0, Basophils % (Manual) 0, Band Neutrophils 0, Platelet Estimate DecreasedL, Platelet Morphology Normal, Hypochromasia 2+, Anisocytosis 3+, Prothrombin Time 14.5H, Prothromb Time International Ratio 1.4H, Sodium Level 144, Potassium Level 3.9, Chloride Level 104, Carbon Dioxide Level 29, Anion Gap 12, Blood Urea Nitrogen 37H, Creatinine 1.7H, Estimat Glomerular Filtration Rate 48.7, Glucose Level 124H, Calcium Level 8.8, Magnesium Level 1.9 Current Medications Medications (Trade) Dose Ordered Sig/Allen Route PRN Reason Start Time Stop Time Status Last Admin Dose Admin Acetaminophen (Tylenol) 650 mg Q4H PRN ORAL Mild Pain/Temp > 100.5 06/28/19 13:30 07/28/19 13:29 Acetaminophen/ Hydrocodone Bitart ([place] 10/325) 1 tab Q4H PRN ORAL For Pain 06/28/19 14:15 07/05/19 14:14 07/01/19 05:14 Aspirin (Ecotrin) 81 mg DAILY ORAL 06/29/19 09:00 07/29/19 08:59 07/03/19 09:43 Atorvastatin Calcium (Lipitor) 40 mg BEDTIME ORAL 06/28/19 21:00 07/28/19 20:59 07/02/19 21:31 Azithromycin (Zithromax) 250 mg DAILY ORAL 06/29/19 09:00 07/06/19 08:59 07/03/19 09:43 Carvedilol (Coreg) 25 mg EVERY 12 HOURS ORAL 06/28/19 21:00 07/28/19 20:59 07/03/19 09:43 Clonidine HCl (Catapres tab) 0.2 mg DAILYPRN PRN ORAL IF SBP>160 06/28/19 14:30 07/28/19 14:29 Dextrose (Dextrose 50%) 25 ml Q30M PRN IV Hypoglycemia 06/28/19 14:30 07/28/19 14:29 Dextrose (Dextrose 50%) 50 ml Q30M PRN IV Hypoglycemia 06/28/19 14:30 07/28/19 14:29 Digoxin (Lanoxin) 0.125 mg DAILY ORAL 07/02/19 09:00 08/01/19 08:59 07/03/19 09:44 Diltiazem HCl (Cardizem) 60 mg EVERY 8 HOURS ORAL 07/01/19 14:00 07/31/19 13:59 07/03/19 05:30 Diphenhydramine HCl (Benadryl) 25 mg DAILYPRN PRN ORAL Itching 06/28/19 14:15 07/28/19 14:14 06/30/19 21:31 Folic Acid (Folate) 1 mg DAILY ORAL 06/29/19 09:00 07/29/19 08:59 07/03/19 09:43 Guaifenesin/ Dextromethorphan (Robitussin DM Syrup) 15 ml Q6H PRN ORAL For Cough 06/29/19 08:00 07/29/19 07:59 07/03/19 05:29 Hydromorphone HCl (Dilaudid) 1.5 mg Q6H PRN IVP MODERATE TO SEVERE PAIN 06/29/19 08:00 07/06/19 07:59 07/03/19 04:39 Insulin Aspart (NovoLOG) BEFORE MEALS SUBQ 06/28/19 16:30 07/28/19 16:29 07/02/19 17:14 Methylprednisolone Sodium Succinate (Solu-MEDROL) 40 mg DAILY IVP 07/03/19 09:00 08/02/19 08:59 07/03/19 09:44 Nitroglycerin (Ntg) 0.4 mg Q5MIN X 3 DOSES PRN SL CHEST PAIN 06/28/19 14:15 07/28/19 14:14 Pantoprazole (Protonix) 40 mg DAILY ORAL 06/29/19 09:00 07/29/19 08:59 07/03/19 09:44 Tamsulosin HCl (Flomax) 0.4 mg BEDTIME ORAL 06/28/19 21:00 07/28/19 20:59 07/02/19 21:32 Vitamin D (Vitamin D) 1,000 intlu DAILY ORAL 06/29/19 09:00 07/29/19 08:59 07/03/19 09:44 Warfarin Sodium (Coumadin per pharmacy) 1 ea DAILY PRN MISC Per rx protocol 07/02/19 12:45 08/01/19 12:44 Warfarin Sodium (Coumadin) 5 mg COUMADIN ONCE ORAL 07/03/19 17:00 07/03/19 17:01 Albino Otero MD Jul 03, 2019 10:52
--- NOTE | 2019-07-03 12:00 | Hematology/Onc Progress Note ---
Assessment/Plan Assessment/Plan ASSESSMENT AND RECOMMENDATION: 1. Metastatic lung cancer. Getting triple combination chemotherapy, intermittent development of wilver right-sided pleural effusion. The patient has required thoracentesis in the past. Continue to closely monitor the patient's fluid status. --> continue office f/u for chemo --> using picc line for access --> maintain access as is 2. Pulmonary embolism on CT, on anticoagulation on Coumadin. --> inr goal 2-3 --> on coumadin with inr goal 3, on admission was >6 --> FFP and vitk for nose bleed --> current inr: 1.4 3. Anemia due to underlying chronic disease. --> ferritin is replete, hold off on iron --> hgb goal >7 --> blood tx: 2 units 06/30 --> hgb trend: 9.6 4. Nasal bleeding with Thrombocytopenia, likely due to recently administered chemotherapy. --> closely monitor for improvement --> trend as needed 5. Coagulopathy, likely due to underlying liver disease. --> for nose bleed ffp ordered --> also may need procedure --> keep back of head up 6. Pleural effusion --> likely to get thora --> needs CT surg recs immediately, have dw pcp and CT surgeon Sreekanth --> Dr Bradley aware I appreciate consultation and kevin RN Subjective Allergies: Coded Allergies: BRITTANI INHIBITORS (Unverified Allergy, Unknown, 03/19/15) Subjective 06/30: inr decreased to 1.6, no bleeding or chills, labs noted, less nasal bleeding 07/01: no acute distress, wbc improving, s/p 2 units blood, hgb improved to 8.4 07/03: on tele, svt overnight, card aware, awake and alert, h/h stable Objective Objective Current Medications Medications (Trade) Dose Ordered Sig/Allen Route PRN Reason Start Time Stop Time Status Last Admin Dose Admin Acetaminophen (Tylenol) 650 mg Q4H PRN ORAL Mild Pain/Temp > 100.5 06/28/19 13:30 07/28/19 13:29 Acetaminophen/ Hydrocodone Bitart ([place] 10/325) 1 tab Q4H PRN ORAL For Pain 06/28/19 14:15 07/05/19 14:14 07/01/19 05:14 Aspirin (Ecotrin) 81 mg DAILY ORAL 2/12/20 09:00 07/29/19 08:59 07/03/19 09:43 Atorvastatin Calcium (Lipitor) 40 mg BEDTIME ORAL 06/28/19 21:00 07/28/19 20:59 07/02/19 21:31 Azithromycin (Zithromax) 250 mg DAILY ORAL 06/29/19 09:00 07/06/19 08:59 07/03/19 09:43 Carvedilol (Coreg) 25 mg EVERY 12 HOURS ORAL 06/28/19 21:00 07/28/19 20:59 07/03/19 09:43 Clonidine HCl (Catapres tab) 0.2 mg DAILYPRN PRN ORAL IF SBP>160 06/28/19 14:30 07/28/19 14:29 Dextrose (Dextrose 50%) 25 ml Q30M PRN IV Hypoglycemia 06/28/19 14:30 07/28/19 14:29 Dextrose (Dextrose 50%) 50 ml Q30M PRN IV Hypoglycemia 06/28/19 14:30 07/28/19 14:29 Digoxin (Lanoxin) 0.125 mg DAILY ORAL 07/02/19 09:00 08/01/19 08:59 07/03/19 09:44 Diltiazem HCl (Cardizem) 60 mg EVERY 8 HOURS ORAL 07/01/19 14:00 07/31/19 13:59 07/03/19 05:30 Diphenhydramine HCl (Benadryl) 25 mg DAILYPRN PRN ORAL Itching 06/28/19 14:15 07/28/19 14:14 06/30/19 21:31 Folic Acid (Folate) 1 mg DAILY ORAL 06/29/19 09:00 07/29/19 08:59 07/03/19 09:43 Guaifenesin/ Dextromethorphan (Robitussin DM Syrup) 15 ml Q6H PRN ORAL For Cough 06/29/19 08:00 07/29/19 07:59 07/03/19 05:29 Hydromorphone HCl (Dilaudid) 1.5 mg Q6H PRN IVP MODERATE TO SEVERE PAIN 06/29/19 08:00 07/06/19 07:59 07/03/19 04:39 Insulin Aspart (NovoLOG) BEFORE MEALS SUBQ 06/28/19 16:30 07/28/19 16:29 07/03/19 11:45 Methylprednisolone Sodium Succinate (Solu-MEDROL) 40 mg DAILY IVP 07/03/19 09:00 08/02/19 08:59 07/03/19 09:44 Nitroglycerin (Ntg) 0.4 mg Q5MIN X 3 DOSES PRN SL CHEST PAIN 06/28/19 14:15 07/28/19 14:14 Pantoprazole (Protonix) 40 mg DAILY ORAL 06/29/19 09:00 07/29/19 08:59 07/03/19 09:44 Tamsulosin HCl (Flomax) 0.4 mg BEDTIME ORAL 06/28/19 21:00 07/28/19 20:59 07/02/19 21:32 Vitamin D (Vitamin D) 1,000 intlu DAILY ORAL 06/29/19 09:00 07/29/19 08:59 07/03/19 09:44 Warfarin Sodium (Coumadin per pharmacy) 1 ea DAILY PRN MISC Per rx protocol 07/02/19 12:45 08/01/19 12:44 Warfarin Sodium (Coumadin) 5 mg COUMADIN ONCE ORAL 07/03/19 17:00 07/03/19 17:01 Last 24 Hour Vital Signs Date Time Temp Pulse Resp B/P (MAP) Pulse Ox O2 Delivery O2 Flow Rate FiO2 07/03/19 09:44 75 07/03/19 09:43 75 138/78 07/03/19 08:00 97.2 75 20 138/78 (98) 92 07/03/19 07:47 82 07/03/19 05:30 73 121/68 07/03/19 04:00 96.6 73 18 121/68 (85) 71 07/03/19 04:00 71 07/03/19 00:00 66 07/03/19 00:00 96.8 82 18 116/71 (86) 71 07/02/19 21:32 81 135/76 07/02/19 21:31 81 135/76 07/02/19 21:27 81 135/76 (95) 07/02/19 21:00 Nasal Cannula 2.0 07/02/19 21:00 97.7 82 18 129/73 (91) 92 2/15/20 20:00 92 07/02/19 16:22 73 07/02/19 16:00 97.2 79 20 127/76 (93) 92 07/02/19 14:02 68 107/57 07/02/19 12:00 97.3 68 20 107/57 (74) 100 07/02/19 11:51 67 07/02/19 09:07 86 120/65 07/02/19 09:04 86 07/02/19 09:00 Nasal Cannula 2.0 07/02/19 08:00 98.1 86 20 120/65 (83) 95 07/02/19 07:57 94 07/02/19 06:01 85 140/76 07/02/19 04:00 75 07/02/19 04:00 85 140/76 (97) 07/02/19 00:00 75 07/01/19 21:00 Nasal Cannula 2.0 07/01/19 20:50 84 117/72 07/01/19 20:50 84 117/72 07/01/19 20:00 97.9 84 16 117/72 (87) 95 07/01/19 20:00 89 07/01/19 16:11 98.1 07/01/19 16:00 98.1 92 20 117/71 (86) 100 07/01/19 15:45 97 07/01/19 14:00 130 126/71 07/01/19 12:00 98.2 130 20 126/71 (89) 92 Intake and Output 07/02/19 07/03/19 19:00 07:00 Intake Total 980 ml Balance 980 ml Intake Oral 980 ml # Voids 4 2 Labs Test 07/01/19 05:19 07/02/19 07:00 07/03/19 07:00 White Blood Count 32.5 K/UL (4.8-10.8) 29.5 K/UL (4.8-10.8) 28.0 K/UL (4.8-10.8) Red Blood Count 2.69 M/UL (4.70-6.10) 2.98 M/UL (4.70-6.10) 3.00 M/UL (4.70-6.10) Hemoglobin 8.4 G/DL (14.2-18.0) 9.6 G/DL (14.2-18.0) 9.6 G/DL (14.2-18.0) Hematocrit 25.2 % (42.0-52.0) 28.2 % (42.0-52.0) 29.0 % (42.0-52.0) Mean Corpuscular Volume 94 FL (80-99) 95 FL (80-99) 97 FL (80-99) Mean Corpuscular Hemoglobin 31.3 PG (27.0-31.0) 32.2 PG (27.0-31.0) 32.2 PG (27.0-31.0) Mean Corpuscular Hemoglobin Concent 33.5 G/DL (32.0-36.0) 34.0 G/DL (32.0-36.0) 33.2 G/DL (32.0-36.0) Red Cell Distribution Width 20.0 % (11.6-14.8) 20.2 % (11.6-14.8) 21.5 % (11.6-14.8) Platelet Count 93 K/UL (150-450) 127 K/UL (150-450) 126 K/UL (150-450) Mean Platelet Volume 7.1 FL (6.5-10.1) 8.3 FL (6.5-10.1) 7.9 FL (6.5-10.1) Neutrophils (%) (Auto) % (45.0-75.0) % (45.0-75.0) % (45.0-75.0) Lymphocytes (%) (Auto) % (20.0-45.0) % (20.0-45.0) % (20.0-45.0) Monocytes (%) (Auto) % (1.0-10.0) % (1.0-10.0) % (1.0-10.0) Eosinophils (%) (Auto) % (0.0-3.0) % (0.0-3.0) % (0.0-3.0) Basophils (%) (Auto) % (0.0-2.0) % (0.0-2.0) % (0.0-2.0) Differential Total Cells Counted 100 100 100 Neutrophils % (Manual) 88 % (45-75) 95 % (45-75) 92 % (45-75) Lymphocytes % (Manual) 2 % (20-45) 3 % (20-45) 5 % (20-45) Monocytes % (Manual) 3 % (1-10) 2 % (1-10) 3 % (1-10) Eosinophils % (Manual) 0 % (0-3) 0 % (0-3) 0 % (0-3) Basophils % (Manual) 0 % (0-2) 0 % (0-2) 0 % (0-2) Band Neutrophils 7 % (0-8) 0 % (0-8) 0 % (0-8) Platelet Estimate Decreased Decreased Decreased Platelet Morphology Normal Normal Normal Hypochromasia 1+ 2+ 2+ Anisocytosis 2+ 2+ 3+ Sodium Level 142 MMOL/L (136-145) 145 MMOL/L (136-145) 144 MMOL/L (136-145) Potassium Level 3.6 MMOL/L (3.5-5.1) 3.6 MMOL/L (3.5-5.1) 3.9 MMOL/L (3.5-5.1) Chloride Level 100 MMOL/L (98-107) 101 MMOL/L (98-107) 104 MMOL/L (98-107) Carbon Dioxide Level 29 MMOL/L (21-32) 28 MMOL/L (21-32) 29 MMOL/L (21-32) Anion Gap 13 mmol/L (5-15) 16 mmol/L (5-15) 12 mmol/L (5-15) Blood Urea Nitrogen 48 mg/dL (7-18) 42 mg/dL (7-18) 37 mg/dL (7-18) Creatinine 2.3 MG/DL (0.55-1.30) 1.8 MG/DL (0.55-1.30) 1.7 MG/DL (0.55-1.30) Estimat Glomerular Filtration Rate 34.3 mL/min (>60) 45.6 mL/min (>60) 48.7 mL/min (>60) Glucose Level 189 MG/DL (74-106) 160 MG/DL (74-106) 124 MG/DL (74-106) Calcium Level 8.1 MG/DL (8.5-10.1) 8.3 MG/DL (8.5-10.1) 8.8 MG/DL (8.5-10.1) Spherocytes 1+ Digoxin Level 0.5 NG/ML (0.5-2.0) Prothrombin Time 14.5 SEC (9.30-11.50) Prothromb Time International Ratio 1.4 (0.9-1.1) Magnesium Level 1.9 MG/DL (1.8-2.4) Height (Feet): 5 Height (Inches): 6.00 Weight (Pounds): 130 Objective GENERAL: No acute distress. NECK: supple LUNGS: Decreased breath sounds. CARDIOVASCULAR: Regular rate. No S3 or S4. ABDOMEN: Soft, nontender, and nondistended. EXTREMITIES: 1+ edema. Anurag Salguero MD Jul 03, 2019 12:00
--- NOTE | 2019-07-03 13:01 | General Progress Note ---
Assessment/Plan Problem List: (1) atrial fib (2) atrial fib (3) atrial fib (4) Paroxysmal atrial fibrillation ICD Codes: I48.0 - Paroxysmal atrial fibrillation SNOMED: 335541480 (5) CHF (congestive heart failure) ICD Codes: I50.9 - Heart failure, unspecified SNOMED: 68518319 (6) Lung cancer ICD Codes: C34.90 - Malignant neoplasm of unspecified part of unspecified bronchus or lung SNOMED: 298337374 (7) Dyspnea ICD Codes: R06.00 - Dyspnea, unspecified SNOMED: 957867817 (8) Pleural effusion ICD Codes: J90 - Pleural effusion, not elsewhere classified SNOMED: 46164201 (9) Supratherapeutic international normalized ratio (INR) ICD Codes: R79.1 - Abnormal coagulation profile SNOMED: 793780944 (10) Epistaxis ICD Codes: R04.0 - Epistaxis SNOMED: 954607403 Assessment/Plan: resume coumadin,taper steroids, diuresis can stop as rising creat, thoracentesis,only min fluid from loculated effusion transfuse he agrees, PAF rx d/w dr grant, now nsr Subjective Constitutional: Reports: weakness HEENT: Reports: no symptoms Cardiovascular: Reports: no symptoms Respiratory: Reports: cough, shortness of breath Gastrointestinal/Abdominal: Reports: no symptoms Genitourinary: Reports: no symptoms Neurologic/Psychiatric: Reports: no symptoms Hematologic/Lymphatic: Reports: no symptoms Allergies: Coded Allergies: BRITTANI INHIBITORS (Unverified Allergy, Unknown, 03/19/15) Objective Last 24 Hour Vital Signs Date Time Temp Pulse Resp B/P (MAP) Pulse Ox O2 Delivery O2 Flow Rate FiO2 07/03/19 12:00 97.9 77 20 141/69 (93) 98 07/03/19 09:44 75 07/03/19 09:43 75 138/78 07/03/19 09:00 Nasal Cannula 2.0 07/03/19 08:00 97.2 75 20 138/78 (98) 92 07/03/19 07:47 82 07/03/19 05:30 73 121/68 07/03/19 04:00 96.6 73 18 121/68 (85) 71 07/03/19 04:00 71 07/03/19 00:00 66 07/03/19 00:00 96.8 82 18 116/71 (86) 71 07/02/19 21:32 81 135/76 07/02/19 21:31 81 135/76 07/02/19 21:27 81 135/76 (95) 07/02/19 21:00 Nasal Cannula 2.0 07/02/19 21:00 97.7 82 18 129/73 (91) 92 07/02/19 20:00 92 07/02/19 16:22 73 07/02/19 16:00 97.2 79 20 127/76 (93) 92 07/02/19 14:02 68 107/57 Intake and Output 07/02/19 07/03/19 19:00 07:00 Intake Total 980 ml Balance 980 ml Intake Oral 980 ml # Voids 4 2 Laboratory Tests 07/03/19 07:00: White Blood Count 28.0*H, Red Blood Count 3.00L, Hemoglobin 9.6L, Hematocrit 29.0L, Mean Corpuscular Volume 97, Mean Corpuscular Hemoglobin 32.2H, Mean Corpuscular Hemoglobin Concent 33.2, Red Cell Distribution Width 21.5H, Platelet Count 126L, Mean Platelet Volume 7.9, Neutrophils (%) (Auto) , Lymphocytes (%) (Auto) , Monocytes (%) (Auto) , Eosinophils (%) (Auto) , Basophils (%) (Auto) , Differential Total Cells Counted 100, Neutrophils % ( Manual) 92H, Lymphocytes % (Manual) 5L, Monocytes % (Manual) 3, Eosinophils % ( Manual) 0, Basophils % (Manual) 0, Band Neutrophils 0, Platelet Estimate DecreasedL, Platelet Morphology Normal, Hypochromasia 2+, Anisocytosis 3+, Prothrombin Time 14.5H, Prothromb Time International Ratio 1.4H, Sodium Level 144, Potassium Level 3.9, Chloride Level 104, Carbon Dioxide Level 29, Anion Gap 12, Blood Urea Nitrogen 37H, Creatinine 1.7H, Estimat Glomerular Filtration Rate 48.7, Glucose Level 124H, Calcium Level 8.8, Magnesium Level 1.9 Height (Feet): 5 Height (Inches): 6.00 Weight (Pounds): 130 General Appearance: no apparent distress, alert EENT: normal ENT inspection Neck: normal alignment Cardiovascular: normal rate, regular rhythm Respiratory/Chest: decreased breath sounds Abdomen: non tender Edema: no edema noted Arm (L), no edema noted Arm (R), no edema noted Leg (L), no edema noted Leg (R), no edema noted Pedal (L), no edema noted Pedal (R), no edema noted 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
--- NOTE | 2019-07-03 13:35 | NUR ---
NURSE NOTES: 0.5 mg Dilaudid wasted in med room with witness JOAN YODER
[2019-07-03] MEDS ORDERED: Warfarin Sodium 5mg ORAL ONE (17:00)
--- NOTE | 2019-07-03 19:34 | NUR ---
HAND-OFF: Report given to KAROLYN RUST. Pt is awake and stable.
--- NOTE | 2019-07-03 20:19 | NUR ---
NURSE NOTES: Received patient from YOCASTA Cordero, stable, AOx4, laying in bed, denies pain at this time, IV site asymptomatic, intact, bed low&locked, side rail up x2, will continue to monitor and reassess
[2019-07-03] MEDS: Tamsulosin 0.4mg cap ORAL SCH (20:40)
[2019-07-03] MEDS: Atorvastatin 20mg tab ORAL SCH (20:40)
[2019-07-04 04:00] VITALS: BP 156/74
[2019-07-04] MEDS: dilTIAZem HCl 60mg tab ORAL SCH ×2 (06:11→13:42)
[2019-07-04] MEDS: Guaifenesin/DM 10ml syrup ORAL PRN ×3 (06:12→17:31)
[2019-07-04] MEDS: NovoLOG Insulin Flexpen SUBQ SCH ×3 (06:30→17:32)
--- NOTE | 2019-07-04 07:28 | NUR ---
NURSE NOTES: Patient stable AOx4 with no complaints and no s/sx of distress. RR even and unlabored on 2L NC. [place] rails upx2, call light within reach, bed low and locked. Will continue to monitor.
[2019-07-04 08:00] VITALS: BP 148/91
[2019-07-04 08:11] LABS: INR 1.7 (0.9-1.1)
[2019-07-04 08:12] LABS: ANION GAP 6 mmol/L (5-15); BLOOD UREA NITROGEN 42 mg/dL (7-18); CALCIUM 8.7 MG/DL (8.5-10.1); CARBON DIOXIDE 32 MMOL/L (21-32); CHLORIDE 105 MMOL/L (98-107); CREATININE 1.7 MG/DL (0.55-1.30); POTASSIUM 4.2 MMOL/L (3.5-5.1); SODIUM 143 MMOL/L (136-145)
--- NOTE | 2019-07-04 08:15 | Pulmonology Progress Note ---
Assessment/Plan Assessment/Plan IMPRESSION: 1. Massive pleural effusion. Unclear if the patient has hemothorax vs malignant 2. Hypercoagulable state, now coagulopathy. 3. Small-cell cancer. 4. COPD. 5. CHF. 6. leukocytosis 7. SOB 8. SVT 9. PE PLAN dc planning on coumadin and dc home onc and ID follow up care noted and reviewed prognosis guarded with noted findings oxygen as needed respiratory care without change impression, plan, and exam edited and reviewed in detail care discussed with RN Subjective Allergies: Coded Allergies: BRITTANI INHIBITORS (Unverified Allergy, Unknown, 03/19/15) Subjective all consultants noted cardiology noted loculated effusion - no real change patient does not want surgery or intervention Objective Last 24 Hour Vital Signs Date Time Temp Pulse Resp B/P (MAP) Pulse Ox O2 Delivery O2 Flow Rate FiO2 07/04/19 06:11 80 156/74 07/04/19 04:00 80 07/04/19 04:00 98.9 76 17 156/74 (101) 96 07/04/19 00:00 68 07/03/19 23:47 98.4 80 17 134/61 (85) 94 07/03/19 22:06 73 143/76 07/03/19 21:00 Nasal Cannula 2.0 07/03/19 20:40 82 163/86 07/03/19 20:00 72 07/03/19 20:00 97.6 82 17 163/86 (111) 97 07/03/19 16:24 75 07/03/19 16:00 98.2 68 16 120/71 (87) 95 07/03/19 13:27 77 141/69 07/03/19 12:00 97.9 77 20 141/69 (93) 98 07/03/19 11:44 70 07/03/19 09:44 75 07/03/19 09:43 75 138/78 07/03/19 09:00 Nasal Cannula 2.0 Intake and Output 07/03/19 07/04/19 19:00 07:00 Intake Total 570 ml 480 ml Balance 570 ml 480 ml Intake Oral 570 ml 480 ml # Voids 4 4 # Bowel Movements 1 Objective GENERAL: A well-developed male, comfortable at present. NAD HEENT: Negative. NECK: Supple. The patient has no jugular venous distention. LUNGS: With significantly reduced breath sounds of the right lung, otherwise fairly clear. CARDIAC: RRR without MRG ABDOMEN: Overall soft, nontender. EXTREMITIES: No cyanosis or clubbing. Mild edema. NEUROLOGIC: Nonfocal. reviewed and edited Laboratory Tests 07/04/19 07:14: Prothrombin Time [Pending], Prothromb Time International Ratio [Pending], Sodium Level 143, Potassium Level 4.2, Chloride Level 105, Carbon Dioxide Level 32, Anion Gap 6, Blood Urea Nitrogen 42H, Creatinine 1.7H, Estimat Glomerular Filtration Rate 48.7, Glucose Level 167H, Calcium Level 8.7 Current Medications Medications (Trade) Dose Ordered Sig/Allen Route PRN Reason Start Time Stop Time Status Last Admin Dose Admin Acetaminophen (Tylenol) 650 mg Q4H PRN ORAL Mild Pain/Temp > 100.5 06/28/19 13:30 07/28/19 13:29 Acetaminophen/ Hydrocodone Bitart ([place] 10/325) 1 tab Q4H PRN ORAL For Pain 06/28/19 14:15 07/05/19 14:14 07/01/19 05:14 Aspirin (Ecotrin) 81 mg DAILY ORAL 06/29/19 09:00 07/29/19 08:59 07/03/19 09:43 Atorvastatin Calcium (Lipitor) 40 mg BEDTIME ORAL 06/28/19 21:00 07/28/19 20:59 07/03/19 20:40 Azithromycin (Zithromax) 250 mg DAILY ORAL 06/29/19 09:00 07/06/19 08:59 07/03/19 09:43 Carvedilol (Coreg) 25 mg EVERY 12 HOURS ORAL 06/28/19 21:00 07/28/19 20:59 07/03/19 20:40 Clonidine HCl (Catapres tab) 0.2 mg DAILYPRN PRN ORAL IF SBP>160 06/28/19 14:30 07/28/19 14:29 Dextrose (Dextrose 50%) 25 ml Q30M PRN IV Hypoglycemia 06/28/19 14:30 07/28/19 14:29 Dextrose (Dextrose 50%) 50 ml Q30M PRN IV Hypoglycemia 06/28/19 14:30 07/28/19 14:29 Digoxin (Lanoxin) 0.125 mg DAILY ORAL 07/02/19 09:00 08/01/19 08:59 07/03/19 09:44 Diltiazem HCl (Cardizem) 60 mg EVERY 8 HOURS ORAL 07/01/19 14:00 07/31/19 13:59 07/04/19 06:11 Diphenhydramine HCl (Benadryl) 25 mg DAILYPRN PRN ORAL Itching 06/28/19 14:15 07/28/19 14:14 06/30/19 21:31 Folic Acid (Folate) 1 mg DAILY ORAL 06/29/19 09:00 07/29/19 08:59 07/03/19 09:43 Furosemide (Lasix) 40 mg DAILY ORAL 07/03/19 13:15 08/02/19 13:14 07/03/19 13:27 Guaifenesin/ Dextromethorphan (Robitussin DM Syrup) 15 ml Q6H PRN ORAL For Cough 06/29/19 08:00 07/29/19 07:59 07/04/19 06:12 Hydromorphone HCl (Dilaudid) 1.5 mg Q6H PRN IVP MODERATE TO SEVERE PAIN 06/29/19 08:00 07/06/19 07:59 07/04/19 06:14 Insulin Aspart (NovoLOG) BEFORE MEALS SUBQ 06/28/19 16:30 07/28/19 16:29 07/03/19 11:45 Methylprednisolone Sodium Succinate (Solu-MEDROL) 40 mg DAILY IVP 07/03/19 09:00 08/02/19 08:59 07/03/19 09:44 Nitroglycerin (Ntg) 0.4 mg Q5MIN X 3 DOSES PRN SL CHEST PAIN 06/28/19 14:15 07/28/19 14:14 Pantoprazole (Protonix) 40 mg DAILY ORAL 06/29/19 09:00 07/29/19 08:59 07/03/19 09:44 Potassium Chloride (K-Dur) 40 meq DAILY ORAL 07/03/19 13:15 08/02/19 13:14 07/03/19 13:27 Tamsulosin HCl (Flomax) 0.4 mg BEDTIME ORAL 06/28/19 21:00 07/28/19 20:59 07/03/19 20:40 Vitamin D (Vitamin D) 1,000 intlu DAILY ORAL 06/29/19 09:00 07/29/19 08:59 07/03/19 09:44 Warfarin Sodium (Coumadin per pharmacy) 1 ea DAILY PRN MISC Per rx protocol 07/02/19 12:45 08/01/19 12:44 Albino Otero MD Jul 04, 2019 08:15
--- NOTE | 2019-07-04 08:25 | NUR ---
*-* INSURANCE *-* ALL CLINICALS AND REVIEWS HAVE BEEN FAXED TO: LINDA HARRIS: Maida [phone] Work Work Addendum: 07/04/19 at 1040 by MILADIS VELÁZQUEZ CM REF# [id number]
[2019-07-04] MEDS: Solu-MEDROL 40mg Inj IVP SCH (08:51)
[2019-07-04] MEDS: Digoxin 0.125mg tab ORAL SCH (08:52)
[2019-07-04] MEDS: Vitamin D 1000 IU Tab ORAL SCH (08:52)
[2019-07-04] MEDS: Carvedilol 25mg Tab ORAL SCH (08:52)
[2019-07-04] MEDS: Aspirin EC 81mg tab ORAL SCH (08:52)
[2019-07-04] MEDS: Azithromycin 250mg tab ORAL SCH (08:53)
--- NOTE | 2019-07-04 10:27 | Hematology/Onc Progress Note ---
Assessment/Plan Assessment/Plan ASSESSMENT AND RECOMMENDATION: 1. Metastatic lung cancer. Getting triple combination chemotherapy, intermittent development of wilver right-sided pleural effusion. The patient has required thoracentesis in the past. Continue to closely monitor the patient's fluid status. --> continue office f/u for chemo --> using picc line for access --> maintain access as is 2. Pulmonary embolism on CT, on anticoagulation on Coumadin. --> inr goal 2-3 --> on coumadin with inr goal 3, on admission was >6 --> FFP and vitk for nose bleed --> current inr: 1.4 -->1.7 3. Anemia due to underlying chronic disease. --> ferritin is replete, hold off on iron --> hgb goal >7 --> blood tx: 2 units 06/30 --> hgb trend: 9.6 4. Nasal bleeding with Thrombocytopenia, likely due to recently administered chemotherapy. --> closely monitor for improvement --> trend as needed 5. Coagulopathy, likely due to underlying liver disease. --> for nose bleed ffp ordered --> also may need procedure --> keep back of head up 6. Pleural effusion --> likely to get thora --> needs CT surg recs immediately, have kevin pcp and CT surgeon Sreekanth --> Dr Bradley aware 7. Dvt ppx coumadin I appreciate consultation and kevin RN Subjective Constitutional: Denies: no symptoms, chills, fever, malaise, weakness, other HEENT: Denies: no symptoms, eye pain, blurred vision, tearing, double vision, ear pain, ear discharge, nose pain, nose congestion, throat pain, throat swelling, mouth pain, mouth swelling, other Cardiovascular: Denies: no symptoms, chest pain, edema, irregular heart rate, lightheadedness, palpitations, syncope, other Respiratory: Denies: no symptoms, cough, shortness of breath, SOB with excertion, SOB at rest, sputum, wheezing, other Gastrointestinal/Abdominal: Denies: no symptoms, abdomen distended, abdominal pain, black stools, tarry stools, blood in stool, constipated, diarrhea, difficulty swallowing, nausea, poor appetite, poor fluid intake, rectal bleeding , vomiting, other Genitourinary: Denies: no symptoms, burning, discharge, frequency, flank pain, hematuria, incontinence, pain, urgency, other Neurologic/Psychiatric: Denies: no symptoms, anxiety, depressed, emotional problems, headache, numbness, paresthesia, pre-existing deficit, seizure, tingling, tremors, weakness, other Endocrine: Denies: no symptoms, excessive sweating, flushing, intolerance to cold, intolerance to heat, increased hunger, increased thirst, increased urine, unexplained weight gain, unexplained weight loss, other Allergies: Coded Allergies: BRITTANI INHIBITORS (Unverified Allergy, Unknown, 03/19/15) Subjective 06/30: inr decreased to 1.6, no bleeding or chills, labs noted, less nasal bleeding 07/01: no acute distress, wbc improving, s/p 2 units blood, hgb improved to 8.4 07/03: on tele, svt overnight, card aware, awake and alert, h/h stable 07/04: is back on coumadin, no bleeding, labs noted, no night sweats Objective Objective Current Medications Medications (Trade) Dose Ordered Sig/Allen Route PRN Reason Start Time Stop Time Status Last Admin Dose Admin Acetaminophen (Tylenol) 650 mg Q4H PRN ORAL Mild Pain/Temp > 100.5 06/28/19 13:30 07/28/19 13:29 Acetaminophen/ Hydrocodone Bitart ([place] 10/325) 1 tab Q4H PRN ORAL For Pain 06/28/19 14:15 07/05/19 14:14 07/01/19 05:14 Aspirin (Ecotrin) 81 mg DAILY ORAL 06/29/19 09:00 07/29/19 08:59 07/04/19 08:52 Atorvastatin Calcium (Lipitor) 40 mg BEDTIME ORAL 06/28/19 21:00 07/28/19 20:59 07/03/19 20:40 Azithromycin (Zithromax) 250 mg DAILY ORAL 06/29/19 09:00 07/06/19 08:59 07/04/19 08:53 Carvedilol (Coreg) 25 mg EVERY 12 HOURS ORAL 06/28/19 21:00 07/28/19 20:59 07/04/19 08:52 Clonidine HCl (Catapres tab) 0.2 mg DAILYPRN PRN ORAL IF SBP>160 06/28/19 14:30 07/28/19 14:29 Dextrose (Dextrose 50%) 25 ml Q30M PRN IV Hypoglycemia 06/28/19 14:30 07/28/19 14:29 Dextrose (Dextrose 50%) 50 ml Q30M PRN IV Hypoglycemia 06/28/19 14:30 07/28/19 14:29 Digoxin (Lanoxin) 0.125 mg DAILY ORAL 07/02/19 09:00 08/01/19 08:59 07/04/19 08:52 Diltiazem HCl (Cardizem) 60 mg EVERY 8 HOURS ORAL 07/01/19 14:00 07/31/19 13:59 07/04/19 06:11 Diphenhydramine HCl (Benadryl) 25 mg DAILYPRN PRN ORAL Itching 06/28/19 14:15 07/28/19 14:14 06/30/19 21:31 Folic Acid (Folate) 1 mg DAILY ORAL 06/29/19 09:00 07/29/19 08:59 07/04/19 08:53 Furosemide (Lasix) 40 mg DAILY ORAL 07/03/19 13:15 08/02/19 13:14 07/04/19 08:52 Guaifenesin/ Dextromethorphan (Robitussin DM Syrup) 15 ml Q6H PRN ORAL For Cough 06/29/19 08:00 07/29/19 07:59 07/04/19 06:12 Hydromorphone HCl (Dilaudid) 1.5 mg Q6H PRN IVP MODERATE TO SEVERE PAIN 06/29/19 08:00 07/06/19 07:59 07/04/19 06:14 Insulin Aspart (NovoLOG) BEFORE MEALS SUBQ 06/28/19 16:30 07/28/19 16:29 07/03/19 11:45 Methylprednisolone Sodium Succinate (Solu-MEDROL) 40 mg DAILY IVP 07/03/19 09:00 08/02/19 08:59 07/04/19 08:51 Nitroglycerin (Ntg) 0.4 mg Q5MIN X 3 DOSES PRN SL CHEST PAIN 06/28/19 14:15 07/28/19 14:14 Pantoprazole (Protonix) 40 mg DAILY ORAL 06/29/19 09:00 07/29/19 08:59 07/04/19 08:53 Potassium Chloride (K-Dur) 40 meq DAILY ORAL 07/03/19 13:15 08/02/19 13:14 07/04/19 08:52 Tamsulosin HCl (Flomax) 0.4 mg BEDTIME ORAL 06/28/19 21:00 07/28/19 20:59 07/03/19 20:40 Vitamin D (Vitamin D) 1,000 intlu DAILY ORAL 06/29/19 09:00 07/29/19 08:59 07/04/19 08:52 Warfarin Sodium (Coumadin per pharmacy) 1 ea DAILY PRN MISC Per rx protocol 07/02/19 12:45 08/01/19 12:44 Warfarin Sodium (Coumadin) 5 mg COUMADIN ONCE ORAL 07/04/19 17:00 07/04/19 17:01 Last 24 Hour Vital Signs Date Time Temp Pulse Resp B/P (MAP) Pulse Ox O2 Delivery O2 Flow Rate FiO2 07/04/19 08:52 89 07/04/19 08:52 89 148/91 07/04/19 08:00 97 07/04/19 08:00 98.1 89 20 148/91 (110) 99 07/04/19 06:11 80 156/74 07/04/19 04:00 80 07/04/19 04:00 98.9 76 17 156/74 (101) 96 07/04/19 00:00 68 07/03/19 23:47 98.4 80 17 134/61 (85) 94 07/03/19 22:06 73 143/76 07/03/19 21:00 Nasal Cannula 2.0 07/03/19 20:40 82 163/86 07/03/19 20:00 72 07/03/19 20:00 97.6 82 17 163/86 (111) 97 07/03/19 16:24 75 07/03/19 16:00 98.2 68 16 120/71 (87) 95 07/03/19 13:27 77 141/69 07/03/19 12:00 97.9 77 20 141/69 (93) 98 07/03/19 11:44 70 07/03/19 09:44 75 07/03/19 09:43 75 138/78 07/03/19 09:00 Nasal Cannula 2.0 07/03/19 08:00 97.2 75 20 138/78 (98) 92 07/03/19 07:47 82 07/03/19 05:30 73 121/68 07/03/19 04:00 96.6 73 18 121/68 (85) 96 07/03/19 04:00 71 07/03/19 00:00 66 07/03/19 00:00 96.8 82 18 116/71 (86) 96 07/02/19 21:32 81 135/76 07/02/19 21:31 81 135/76 07/02/19 21:27 81 135/76 (95) 07/02/19 21:00 Nasal Cannula 2.0 07/02/19 21:00 97.7 82 18 129/73 (91) 92 07/02/19 20:00 92 07/02/19 16:22 73 07/02/19 16:00 97.2 79 20 127/76 (93) 92 07/02/19 14:02 68 107/57 07/02/19 12:00 97.3 68 20 107/57 (74) 100 07/02/19 11:51 67 Intake and Output 07/03/19 07/04/19 19:00 07:00 Intake Total 570 ml 480 ml Balance 570 ml 480 ml Intake Oral 570 ml 480 ml # Voids 4 4 # Bowel Movements 1 Labs Test 07/02/19 07:00 07/03/19 07:00 07/04/19 07:14 White Blood Count 29.5 K/UL (4.8-10.8) 28.0 K/UL (4.8-10.8) Red Blood Count 2.98 M/UL (4.70-6.10) 3.00 M/UL (4.70-6.10) Hemoglobin 9.6 G/DL (14.2-18.0) 9.6 G/DL (14.2-18.0) Hematocrit 28.2 % (42.0-52.0) 29.0 % (42.0-52.0) Mean Corpuscular Volume 95 FL (80-99) 97 FL (80-99) Mean Corpuscular Hemoglobin 32.2 PG (27.0-31.0) 32.2 PG (27.0-31.0) Mean Corpuscular Hemoglobin Concent 34.0 G/DL (32.0-36.0) 33.2 G/DL (32.0-36.0) Red Cell Distribution Width 20.2 % (11.6-14.8) 21.5 % (11.6-14.8) Platelet Count 127 K/UL (150-450) 126 K/UL (150-450) Mean Platelet Volume 8.3 FL (6.5-10.1) 7.9 FL (6.5-10.1) Neutrophils (%) (Auto) % (45.0-75.0) % (45.0-75.0) Lymphocytes (%) (Auto) % (20.0-45.0) % (20.0-45.0) Monocytes (%) (Auto) % (1.0-10.0) % (1.0-10.0) Eosinophils (%) (Auto) % (0.0-3.0) % (0.0-3.0) Basophils (%) (Auto) % (0.0-2.0) % (0.0-2.0) Differential Total Cells Counted 100 100 Neutrophils % (Manual) 95 % (45-75) 92 % (45-75) Lymphocytes % (Manual) 3 % (20-45) 5 % (20-45) Monocytes % (Manual) 2 % (1-10) 3 % (1-10) Eosinophils % (Manual) 0 % (0-3) 0 % (0-3) Basophils % (Manual) 0 % (0-2) 0 % (0-2) Band Neutrophils 0 % (0-8) 0 % (0-8) Platelet Estimate Decreased Decreased Platelet Morphology Normal Normal Hypochromasia 2+ 2+ Anisocytosis 2+ 3+ Spherocytes 1+ Sodium Level 145 MMOL/L (136-145) 144 MMOL/L (136-145) 143 MMOL/L (136-145) Potassium Level 3.6 MMOL/L (3.5-5.1) 3.9 MMOL/L (3.5-5.1) 4.2 MMOL/L (3.5-5.1) Chloride Level 101 MMOL/L (98-107) 104 MMOL/L (98-107) 105 MMOL/L (98-107) Carbon Dioxide Level 28 MMOL/L (21-32) 29 MMOL/L (21-32) 32 MMOL/L (21-32) Anion Gap 16 mmol/L (5-15) 12 mmol/L (5-15) 6 mmol/L (5-15) Blood Urea Nitrogen 42 mg/dL (7-18) 37 mg/dL (7-18) 42 mg/dL (7-18) Creatinine 1.8 MG/DL (0.55-1.30) 1.7 MG/DL (0.55-1.30) 1.7 MG/DL (0.55-1.30) Estimat Glomerular Filtration Rate 45.6 mL/min (>60) 48.7 mL/min (>60) 48.7 mL/min (>60) Glucose Level 160 MG/DL (74-106) 124 MG/DL (74-106) 167 MG/DL (74-106) Calcium Level 8.3 MG/DL (8.5-10.1) 8.8 MG/DL (8.5-10.1) 8.7 MG/DL (8.5-10.1) Digoxin Level 0.5 NG/ML (0.5-2.0) Prothrombin Time 14.5 SEC (9.30-11.50) 17.4 SEC (9.30-11.50) Prothromb Time International Ratio 1.4 (0.9-1.1) 1.7 (0.9-1.1) Magnesium Level 1.9 MG/DL (1.8-2.4) Height (Feet): 5 Height (Inches): 6.00 Weight (Pounds): 130 Objective GENERAL: No acute distress. NECK: supple LUNGS: Decreased breath sounds. CARDIOVASCULAR: Regular rate. No S3 or S4. ABDOMEN: Soft, nontender, and nondistended. EXTREMITIES: 1+ edema. Anurag Salguero MD Jul 04, 2019 10:27
[2019-07-04 12:00] VITALS: BP 136/76
--- NOTE | 2019-07-04 13:28 | Cardiac Electrophysiology PN ---
Assessment/Plan Assessment/Plan 1. Massive Right pleural effusion. The patient received vitamin K as INR was 6.4. S/P multiple right-sided thoracentesis 06/30/19 of only 10cc. High risk for VATS/ pleurodesis and he refused anyways 2. 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 3. Paroxysmal atrial fibrillation with RVR 150s on 07/01/19 despite Coreg 25 mg b.i.d. Now on Cardizem 60 tid, Coreg 25 bid, Dig 0.125 daily and Coumadin per Rx 4. Hypertension, on Coreg 25 b.i.d., Lasix 40 mg IV daily, and Cardizem 60 tid 5. Nonsustained VT. Medical therapy. Not stable for stress test. K and MG are OK. On Coreg 6. CAD with prior LAD and Diagonal stents that were patent 7. Metastatic non-small cell lung cancer. Further evaluation by Dr. Salguero. 8. 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 Elevated white count, likely due to underlying pneumonia, on IV antibiotic. RICK RN and Dr. Otero Subjective Subjective Now in SR in 70son Cardizem and Digoxin. Started on Coumadin Objective Last 24 Hour Vital Signs Date Time Temp Pulse Resp B/P (MAP) Pulse Ox O2 Delivery O2 Flow Rate FiO2 07/04/19 08:52 89 07/04/19 08:52 89 148/91 07/04/19 08:00 97 07/04/19 08:00 98.1 89 20 148/91 (110) 99 07/04/19 06:11 80 156/74 07/04/19 04:00 80 07/04/19 04:00 98.9 76 17 156/74 (101) 96 07/04/19 00:00 68 07/03/19 23:47 98.4 80 17 134/61 (85) 94 07/03/19 22:06 73 143/76 07/03/19 21:00 Nasal Cannula 2.0 07/03/19 20:40 82 163/86 07/03/19 20:00 72 07/03/19 20:00 97.6 82 17 163/86 (111) 97 07/03/19 16:24 75 07/03/19 16:00 98.2 68 16 120/71 (87) 95 07/03/19 13:27 77 141/69 Intake and Output 07/03/19 07/04/19 19:00 07:00 Intake Total 570 ml 480 ml Balance 570 ml 480 ml Intake Oral 570 ml 480 ml # Voids 4 4 # Bowel Movements 1 Laboratory Tests Test 07/04/19 07:14 Prothrombin Time 17.4 SEC (9.30-11.50) H Prothromb Time International Ratio 1.7 (0.9-1.1) H Sodium Level 143 MMOL/L (136-145) Potassium Level 4.2 MMOL/L (3.5-5.1) Chloride Level 105 MMOL/L (98-107) Carbon Dioxide Level 32 MMOL/L (21-32) Anion Gap 6 mmol/L (5-15) Blood Urea Nitrogen 42 mg/dL (7-18) H Creatinine 1.7 MG/DL (0.55-1.30) H Estimat Glomerular Filtration Rate 48.7 mL/min (>60) Glucose Level 167 MG/DL (74-106) H Calcium Level 8.7 MG/DL (8.5-10.1) Objective HEAD AND NECK: Positive JVD. LUNGS: Decreased breath sounds especially on right side. Distended chest veins CARDIOVASCULAR: Regular S1 and S2 with no gallop. ABDOMEN: Soft. EXTREMITIES: No pitting edema. Quinton Bradley MD Jul 04, 2019 13:28
[2019-07-04 16:00] VITALS: BP 153/65
[2019-07-04] MEDS ORDERED: Warfarin Sodium 5mg ORAL ONE (17:00)
[2019-07-04] MEDS ORDERED: DILTIAZEM ER180 MG PO (17:18)
[2019-07-04] MEDS ORDERED: PREDNISONE10 M2 PO (17:18)
[2019-07-04] MEDS ORDERED: Digoxin ORAL (17:18)
--- NOTE | 2019-07-04 18:56 | NUR ---
NURSE NOTES: Patient discharged via wheelchair to taxi cab. All belongings with patient. Discharge packet with prescriptions with patient. New medications reviewed with patient and patient verbalized understanding of indication, desired effect and side effects to look out for. IV and night monitor discontinued.
--- NOTE | 2019-07-05 00:45 | Discharge Summary ---
DATE OF ADMISSION: 06/28/2019 DATE OF DISCHARGE: 07/04/2019 PERTINENT HISTORY: The patient is a 69-year-old man with chronic obstructive pulmonary disease, congestive heart failure, small-cell carcinoma of the lung, who presents with increasing shortness of breath. PERTINENT PHYSICAL FINDINGS: HEENT: Throat clear. CHEST: Has marked venous dilation. LUNGS: Showed bilateral rhonchi. Harsh cough. HEART: Regular rhythm. ABDOMEN: Soft without organomegaly. COURSE IN THE HOSPITAL: The patient had chest x-ray, a mass and right pleural effusion increased from prior. He was given nebulizer treatments, steroids, and was on telemetry. He developed rapid atrial fibrillation and medications were adjusted by Dr. Bradley. He converted to sinus rhythm. Coumadin was held for several days and thoracentesis was attempted but it was unable to achieve much drainage as there is loculated effusion. The patient was seen in an Oncology consultation by Dr. Salguero. With the steroids and nebulizer treatment, empiric antibiotics, and cardiac management, the patient felt better. On day of discharge, his lungs were clear with diminished breath sounds at the bases. Heart, rhythm was sinus rhythm. Abdomen, soft. Extremities, no edema and he was discharged home in stable condition. FINAL DIAGNOSES: 1. 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 2. Chronic obstructive pulmonary disease with acute exacerbation. 3. Combined systolic and diastolic congestive heart failure. 4. Paroxysmal atrial fibrillation. 5. Anemia. 6. Coumadin maintenance. DISCHARGE DISPOSITION: Home on a low-salt diet. MEDICATIONS: Per the discharge medication list. New medications include digoxin 0.125 mg daily and diltiazem 180 mg sustained release daily and prednisone 10 mg b.i.d. His warfarin dose is decreased to 5 mg daily. His other medicines are as per admission. FOLLOWUP: Follow up in the office of Dr. Salguero for INR monitoring and Oncology and Dr. Bradley. Eagle Rangel M.D. DR: GIULIANA JOB#: [id number] CC:
--- NOTE | 2019-07-05 08:42 | NUR ---
CASE MANAGEMENT: REVIEW 07/02/19 SI: S/P THORACENTESIS . LARGE RIGHT PLEURAL EFFUSION . ANEMIA . EPISTAXIS . DYSPNEA . MASS RIGHT NON-SMALL LUNG CA -ON TREATMENT . SUPRATHERAPEUTIC INR . 97.3 68 20 107/57 100% ON RA WBC 29.5 H/H 9.6/28.2 PLT 127 BUN 42 CREAT 1.8 BG 124 IS:IV ZOSYN Q8HR ZITHROMAX PO QD IV LASIX Q8HR IV SOLU-MEDROL Q8HR NORVASC PO QD COREG PO BID PROTONIX PO QD FLOMAX PO QHS FOLATE PO QD ASPIRIN PO QD \: 2E TELE UNIT PLAN: MONITOR LABS CASE MANAGEMENT: REVIEW 07/03/19 SI: S/P THORACENTESIS . LARGE RIGHT PLEURAL EFFUSION . ANEMIA . EPISTAXIS . DYSPNEA . MASS RIGHT NON-SMALL LUNG CA -ON TREATMENT . SUPRATHERAPEUTIC INR . 97.2 75 20 138/78 92% ON 2L NC WBC 28 H/H 9.6/29.0 PLT 126 BUN 37 CREAT 1.7 BG 124 PT/INR14.5/1.4 IS:IV ZOSYN Q8HR ZITHROMAX PO QD IV LASIX Q8HR IV SOLU-MEDROL Q8HR NORVASC PO QD COREG PO BID PROTONIX PO QD FLOMAX PO QHS FOLATE PO QD ASPIRIN PO QD \: 2E TELE UNIT PLAN: [facility]ITOR [facility]
--- NOTE | 2019-07-06 14:14 | NUR ---
*-* INSURANCE *-* DISCHARGE SUMMARY HAS BEEN FAXED TO: LINDA HARRIS: Maida [phone] Work Work
== END 2019-07-04 18:38 | disposition home or self-care (01) | DRG 136 ==
LOC: EDBD 04:20 → EMR 05:00 → EDBEDREQ 10:31 → 2E 11:02
PROC: 0W993ZZ Drainage of Right Pleural Cavity, Percutaneous Approach (ICD-10-PCS; principal; 2019-06-30)
PROC: 30233N1 Transfusion of Nonautologous Red Blood Cells into Peripheral Vein, Percutaneous Approach (ICD-10-PCS; 2019-06-30)
DX: C34.90 Malignant neoplasm of unspecified part of unspecified bronchus or lung (principal); J91.0 Malignant pleural effusion; I26.99 Other pulmonary embolism without acute cor pulmonale; I48.0 Paroxysmal atrial fibrillation; I50.40 Unspecified combined systolic (congestive) and diastolic (congestive) heart failure; J44.1 Chronic obstructive pulmonary disease with (acute) exacerbation; Z79.01 Long term (current) use of anticoagulants; Z88.8 Allergy status to other drugs, medicaments and biological substances; I13.0 Hypertensive heart and chronic kidney disease with heart failure and stage 1 through stage 4 chronic kidney disease, or unspecified chronic kidney disease; E11.22 Type 2 diabetes mellitus with diabetic chronic kidney disease; N18.3 Chronic kidney disease, stage 3 (moderate); Z86.718 Personal history of other venous thrombosis and embolism; Z79.82 Long term (current) use of aspirin; D63.8 Anemia in other chronic diseases classified elsewhere; I25.10 Atherosclerotic heart disease of native coronary artery without angina pectoris; Z95.5 Presence of coronary angioplasty implant and graft; R79.1 Abnormal coagulation profile; D69.59 Other secondary thrombocytopenia; T45.1X5A Adverse effect of antineoplastic and immunosuppressive drugs, initial encounter; R04.0 Epistaxis; Z79.899 Other long term (current) drug therapy; Z79.84 Long term (current) use of oral hypoglycemic drugs; Z87.891 Personal history of nicotine dependence
CPT/HCPCS: 36415; 71045; 71250; 76942; 80048; 80053; 80162; 82378; 82962; 83735; 83880; 84484; 85007; 85025; 85610; 85730; 86850; 86900; 86901; 86920; 93005; 93306; 96365; 96368; 96375; 99285; J1815; J7030

== ENCOUNTER 2019-07-19 11:40 | Emergency (ER) | payer MEDICARE, MEDICAID ==
[~2019-07-19] VITALS: Ht 172.7 cm; Wt 59.0 kg
[~2019-07-19 11:40] MED LIST changes: +AMLODIPINE BESYL5 MG ORAL; +ASPIRIN-LOW81 MG ORAL; +CARVEDILOL25 MG ORAL; +DILTIAZEM ER180 MG PO; +Digoxin ORAL; +FLOMAX0.4 MG ORAL; +FOLIC ACID1 MG ORAL; +FUROSEMIDE40 MG ORAL; +NITRO0.4 SL; +POTASSIUM CHLO10 ME2 PO; +PREDNISONE10 M2 PO; +VITAMIN D-32000 UNI2 PO; +WARFARIN SODIUM6 MG ORAL
[2019-07-19 11:44] VITALS: BP 132/76
--- NOTE | 2019-07-19 11:44 | NUR ---
ED Nurse Note: Pt brought in by 58 picked up from a cancer clinic due to upper abd. pain 10/10 with N/V x 1 week. Pt being treated for lung CA. Pt is AAO x4, follows commands with SOB at rest. Skin is warm but pale. ERMD at the bed side.
[2019-07-19] MEDS ORDERED: Morphine Sulfate 4mg/ml Inj (IV USE ONLY) IVP ONE ×2 (12:00→15:30)
--- NOTE | 2019-07-19 12:04 | Emergency Room Report ---
History of Present Illness General Chief Complaint: Abdominal Pain Source: Patient, EMS Present Illness HPI Patient is a 69-year-old gentleman past medical history of CAD status post 4 stents, CHF, COPD, pleural effusion status post thoracentesis x5 and lung cancer on chemotherapy who presents to the ER with multiple complaints. Patient complains of epigastric abdominal pain that is been worsening for the past week. He denies any fever or chills. Patient also complains of right lower lung pain and shortness of breath. Patient denies any rash. Patient denies any dysuria or hematuria. He denies any constipation or diarrhea. Patient was brought in by EMS. Patient states that he still smokes cigarettes. Allergies: Coded Allergies: BRITTANI INHIBITORS (Unverified Allergy, Unknown, 03/19/15) Patient History Social History: Reports: smoking Reviewed Nursing Documentation: PMH: Agreed; PSxH: Agreed Nursing Documentation-PMH Past Medical History: No History, Except For Hx Cardiac Problems: Yes - CHF, stroke in 2017, lung cancer, stants. Hx Hypertension: Yes Hx Pacemaker: No Hx COPD: Yes Hx Diabetes: Yes Hx Cancer: Yes - LUNG CANCER POST STATUS CHEMOTHERAPY Hx Gastrointestinal Problems: No Hx Dialysis: No Hx Neurological Problems: Yes Hx Cerebrovascular Accident: Yes Hx Seizures: No Hx Weakness: Yes Review of Systems All Other Systems: negative except mentioned in HPI Physical Exam Vital Signs Date Time Temp Pulse Resp B/P (MAP) Pulse Ox O2 Delivery O2 Flow Rate FiO2 07/19/19 11:34 97.3 78 18 132/76 (94) 98 Room Air Sp02 EP Interpretation: reviewed, normal General Appearance: alert, GCS 15, mild distress Head: normocephalic, atraumatic Eyes: bilateral eye normal inspection, bilateral eye PERRL ENT: hearing grossly normal, normal pharynx, no angioedema, normal voice Neck: full range of motion, supple/symm/no masses, other - +JVD Respiratory: chest non-tender, other - Patient mildly tachypneic, right lower and mid lung with diminished breath sounds Cardiovascular #1: regular rate, rhythm, no edema, JVD Cardiovascular #2: 2+ radial (R), 2+ radial (L) Gastrointestinal: normal bowel sounds, soft, non-distended, other - Diffuse abdominal tenderness maximal at the periumbilical region Rectal: deferred Genitourinary: normal inspection, no CVA tenderness Musculoskeletal: back normal, normal range of motion, calf tenderness, gait/ station normal, non-tender Neurologic: alert, motor strength/tone normal, oriented x3, sensory intact, responsive, speech normal Psychiatric: judgement/insight normal, memory normal, mood/affect normal, no suicidal/homicidal ideation Skin: no rash Lymphatic: no adenopathy Medical Decision Making Diagnostic Impression: Primary Impression: Pleural effusion Additional Impressions: CHF (congestive heart failure) Aortic aneurysm Lung mass Anemia ER Course Patient's pain well controlled with IV morphine. Patient has large right pleural effusion I have ordered for an ultrasound-guided thoracentesis which is pending at this time. Patient CT abdomen pelvis demonstrates abdominal aneurysm refusing influenza swab. CTA chest abdomen pelvis has been ordered to rule out dissection. Signed out to oncoming physician at 1430. Patient is still pending ultrasound-guided thoracentesis. Patient will require admission. EKG Diagnostic Results EKG Time: 11:56 EP Interpretation: MD Orlin Rate: normal ST Segments: no acute changes ASA given to the pt in ED: No Rhythm Strip Diag. Results Rhythm Strip Time: 12:03 EP Interpretation: yes Rate: 78 Rhythm: NSR, no PVC's, no ectopy Last Vital Signs Date Time Temp Pulse Resp B/P (MAP) Pulse Ox O2 Delivery O2 Flow Rate FiO2 07/19/19 11:34 97.3 78 18 132/76 (94) 98 Room Air Narcisa Ordaz M.D. Jul 19, 2019 12:03
[2019-07-19 12:30] LABS: HEMATOCRIT 31.6 % (42.0-52.0); HEMOGLOBIN 10.3 G/DL (14.2-18.0); MEAN CORPUSCULAR VOLUME 98 FL (80-99); PLATELET COUNT 110 K/UL (150-450); RED BLOOD COUNT 3.22 M/UL (4.70-6.10); RED CELL DISTRIBUTION WIDTH 18.5 % (11.6-14.8); WHITE BLOOD COUNT 7.8 K/UL (4.8-10.8)
[2019-07-19 12:41] LABS: ANION GAP 13 mmol/L (5-15); BLOOD UREA NITROGEN 21 mg/dL (7-18); CALCIUM 9.1 MG/DL (8.5-10.1); CARBON DIOXIDE 23 MMOL/L (21-32); CHLORIDE 105 MMOL/L (98-107); CREATININE 1.4 MG/DL (0.55-1.30); POTASSIUM 5.4 MMOL/L (3.5-5.1); SODIUM 141 MMOL/L (136-145)
--- NOTE | 2019-07-19 12:45 | NUR ---
ED Nurse Note: Shira GENTILE staff at the bed side.
[2019-07-19 12:47] LABS: INR 1.1 (0.9-1.1)
[2019-07-19 12:49] LABS: ALANINE AMINOTRANSFERASE 17 U/L (12-78); ALBUMIN 2.8 G/DL (3.4-5.0); ALBUMIN/GLOBULIN RATIO 0.6 (1.0-2.7); ALKALINE PHOSPHATASE 90 U/L (46-116); ASPARTATE AMINO TRANSFERASE 25 U/L (15-37); BILIRUBIN,TOTAL 0.9 MG/DL (0.2-1.0)
--- NOTE | 2019-07-19 13:06 | Diagnostic Imaging Report ---
Indication: Dyspnea Comparison: 06/30/2019 chest x-ray. CT 07/19/2019 A single view chest radiograph was obtained. Findings: There is a large density at the right lung base again noted without significant change in radiographic appearance. Heart size is stable. Left lung remains relatively clear. IMPRESSION: No change from the prior examination. Right basilar density shown to represent pleural fluid and mass by CT performed today. Note: This was shown to be complex, solid and cystic and multiloculated by ultrasound. Last 2 thoracenteses performed failed to drain any significant fluid from this mass/collection.
--- NOTE | 2019-07-19 13:20 | Diagnostic Imaging Report ---
INDICATION: 69-year-old male history of lung cancer/chemotherapy presents to the ER multiple complaints including epigastric abdominal/chest pain. History of thoracentesis x5 on the right. Last 2 attempts were relatively unsuccessful yielding scant blood. TECHNIQUE: Continuous helical transaxial imaging of the abdomen and pelvis was obtained from the lung bases to the pubic symphysis. No intravenous contrast was administered. Coronal 2-D reformats were also obtained. Automatic Exposure Control was utilized. Total Dose length Product (DLP): 181.[address] Dose Index Volume (CTDIvol): 3.5 mGy Comparison: CT chest 06/29/2019 FINDINGS: Lungs: Once again, there is a large multiloculated mass at the right lung base, partially imaged on this examination of the abdomen and pelvis. The mass has low attenuation fluid component but is notable for areas of loculation and slightly hyperdense solid components. The loculation is better appreciated on ultrasound. The mass is not completely imaged on this examination but as visualized measures 16 x 10 cm in AP and transverse dimensions respectively. The upper extent of the mass is beyond the [id number] of this examination but the craniocaudal dimension is at a minimum 12 cm and most likely much larger than this. There is compressive atelectasis of the visualized right lung base. This is been noted on prior studies as well. 1 cm hypodensity in the medial segment of the left lobe is probably a cyst but not adequately assessed on the current study done without contrast. Gallbladder/biliary system: No obvious gallstones are identified. There is no evidence of intrahepatic or extrahepatic biliary ductal dilatation. Spleen: Unremarkable Pancreas: Unremarkable Kidneys/Bladder: No hydronephrosis demonstrated. There are multiple hypodensities noted. These may be cystic.. Adrenal glands: Unremarkable Bowel: Unremarkable. Aorta/IVC: There is moderate to severe calcification of aorta. There is a fusiform aneurysm of the abdominal aorta measuring about 3.3 cm. This is seen distally just above the bifurcation. The common iliac arteries also appear enlarged measuring 18 mm on the right and 15 mm on the left. Peritoneum: There is no free fluid. Bones: There is narrowing of intervertebral discs and accompanying endplate osteophyte formation. Hypertrophied facet joints also demonstrated. Osteopenia noted. Anterolisthesis L5-S1 demonstrated. IMPRESSION: Large complex cystic mass at the right lung base presumably malignancy. This has been noted on prior studies as well. Severe compressive atelectasis of the visualized part of the right lower lobe. No acute findings in the abdomen. 3.3 cm fusiform aneurysm distal abdominal aorta. Moderate atherosclerotic vascular disease with enlargement of both common iliac arteries. Degenerative changes of the spine Probable liver cysts. Multiple hypodensities within both kidneys. These may be cystic but incompletely assessed. Note: Evaluation of solid organs is limited on non contrast imaging. The CT scanner at [facility] is accredited by the [employer] and the scans are performed using dose optimization techniques as appropriate to a performed exam including Automatic Exposure control.
--- NOTE | 2019-07-19 13:36 | NUR ---
ED Nurse Note: pt. stated that he took 40 mg of lasix already and refused to take another one. Dr. Ordaz notified
[2019-07-19] MEDS ORDERED: Omnipaque 350 100ml vial INJ PRN (13:45)
--- NOTE | 2019-07-19 13:50 | NUR ---
ED Nurse Note: Primary RN tried to insert IV 20 gauge but pt is being uncooperative and refused for RN to insert an IV. charge nurse aware.
[2019-07-19 13:53] LABS: APPEARANCE,URINE CLEAR; BILIRUBIN, URINE 1+ (NEGATIVE); GLUCOSE, URINE (UA) NEGATIVE (NEGATIVE); KETONES,URINE NEGATIVE (NEGATIVE); NITRITE,URINE NEGATIVE (NEGATIVE); PH,URINE 6 (4.5-8.0); PROTEIN,URINE 2+ (NEGATIVE); UROBILINOGEN,URINE 4 MG/DL (0.0-1.0)
[2019-07-19 14:00] VITALS: BP 124/76
[2019-07-19 14:08] LABS: COLOR,URINE YELLOW; LEUKOCYTE ESTERASE ,URINE TRACE (NEGATIVE)
--- NOTE | 2019-07-19 14:35 | NUR ---
ED Nurse Note: Edward from radiology at the bed side for IV insertion.
--- NOTE | 2019-07-19 15:15 | NUR ---
ED Nurse Note: Pt taken for CTA via wheelchair and stable.
--- NOTE | 2019-07-19 15:25 | NUR ---
ED Nurse Note: Jeison from Radiology called and reported that IV access on left AC not working and they were unable to do CTA. Dr Brenner was notified.
--- NOTE | 2019-07-19 15:30 | NUR ---
ED Nurse Note: Pt came back from CT. Pt is refusing CTA at this time and refuses someone to insert an IV 20 gauge on him. Pt also refused for ERMD to insert an external jugular access. Dr Brenner notified and orderd to DC CTA.
--- NOTE | 2019-07-19 15:48 | NUR ---
ED Nurse Note: Urine specimen collected and sent.
[2019-07-19 16:16] VITALS: BP 132/60
--- NOTE | 2019-07-19 16:16 | NUR ---
ER DISCHARGE NOTE: Patient is cleared to be discharged per ERMD, pt is aox4, on room air, with stable vital signs. pt was given dc instructions, pt was able to verbalize understanding, pt id band and iv site removed without complications. pt is able to ambulate with steady gait. pt took all belongings.
== END 2019-07-19 16:16 | disposition home or self-care (01) ==
LOC: EDBD 11:40 → EMR 12:00 → CANBEDREQ 16:12 → EMR 16:16
DX: J90 Pleural effusion, not elsewhere classified (principal); D64.9 Anemia, unspecified; I71.9 Aortic aneurysm of unspecified site, without rupture; R91.8 Other nonspecific abnormal finding of lung field; I11.0 Hypertensive heart disease with heart failure; I50.9 Heart failure, unspecified; J44.9 Chronic obstructive pulmonary disease, unspecified; E11.9 Type 2 diabetes mellitus without complications; Z85.118 Personal history of other malignant neoplasm of bronchus and lung; Z86.73 Personal history of transient ischemic attack (TIA), and cerebral infarction without residual deficits
CPT/HCPCS: 36415; 71045; 74176; 80053; 81003; 83605; 83690; 83735; 83880; 84484; 85007; 85025; 85610; 85730; 86710; 87040; 93005; 96374; 96375; 96376; 99284; J2270; J2405